=== PATIENT | male | born 1965 | race Caucasian/White ===

== ENCOUNTER 2019-01-26 01:46 | Emergency (ER) | payer BC ==
--- NOTE | 2019-01-26 02:15 | ERPHSYRPT ---
- History of Present Illness Time Seen by Provider: 01/26/19 02:00 Historian: patient Exam Limitations: no limitations Patient Subjective Stated Complaint: patient states he has been having chest pain x2 weeks off nad on started having it tonite got heaviness in his arm thought he better come in Triage Nursing Assessment: pt is alert and orietnedx3, able to ambulate by self , lung sounds clear diminished, pupils perrla2, pulses equal bilateral radius , mild edema noted in lower extremities. skin warm dry and intact Physician History: 53 y/o morbidly obese diabetic white male presents with 2.5 week h/o intermittent sharp, central substernal cp without radiation. occas soa. pt has been taking asa occas. pt cp has persisted. pt has appt with a pcp today. Timing/Duration: week(s) (2.5) Quality: pressure, sharpness, tightness Location: substernal, central Chest Pain Radiation: no radiation Severity of Pain-Max: mild Severity of Pain-Current: mild Modifying Factors: Improves With: aspirin Associated Symptoms: No nausea, No vomiting, No palpitations, No abdominal pain , No shortness of breath, No cough Nitro Today/Relief: no nitro taken today Aspirin Treatment Today: 81 mg x 4 Allergies/Adverse Reactions: Penicillins Allergy (Verified 01/26/19 02:07) Home Medications: Aspirin EC 325 mg [Ecotrin 325 MG] 325 mg PO DAILY 01/26/19 [History] Hx Tetanus, Diphtheria Vaccination/Date Given: Yes Hx Influenza Vaccination/Date Given: Yes Hx Pneumococcal Vaccination/Date Given: No Immunizations Up to Date: Yes - Review of Systems Constitutional: No Symptoms Eyes: No Symptoms Ears, Nose, & Throat: No Symptoms Respiratory: Dyspnea, No Stridor, No Wheezing Cardiac: Chest Pain, No Edema, No Palpitations, No Syncope Abdominal/Gastrointestinal: No Symptoms, No Abdominal Pain, No Nausea, No Vomiting, No Diarrhea Genitourinary Symptoms: No Symptoms Musculoskeletal: No Symptoms Skin: No Symptoms Neurological: No Symptoms Psychological: No Symptoms Endocrine: No Symptoms Hematologic/Lymphatic: No Symptoms Immunological/Allergic: No Symptoms All Other Systems: Reviewed and Negative - Past Medical History Neurological History: No Pertinent History ENT History: No Pertinent History Cardiac History: No Pertinent History Respiratory History: No Pertinent History Endocrine Medical History: Diabetes Type II Musculoskeletal History: No Pertinent History GI Medical History: No Pertinent History History: No Pertinent History Psycho-Social History: No Pertinent History Male Reproductive Disorders: No Pertinent History - Past Surgical History Neuro Surgical History: No Pertinent History Cardiac: No Pertinent History Respiratory: No Pertinent History Gastrointestinal: No Pertinent History Genitourinary: No Pertinent History Musculoskeletal: No Pertinent History Male Surgical History: No Pertinent History - Social History Smoking Status: Never smoker Patient Lives Alone: Yes - Nursing Vital Signs Nursing Vital Signs: Initial Vital Signs Temperature 98.6 F 01/26/19 01:46 Pulse Rate 96 H 01/26/19 01:46 Respiratory Rate 22 01/26/19 01:46 Blood Pressure 141/80 01/26/19 01:46 O2 Sat by Pulse Oximetry 97 01/26/19 01:46 Pain Scale Pain Intensity 0 - Physical Exam General Appearance: no apparent distress, alert, anxiety Eye Exam: PERRL/EOMI Ears, Nose, Throat Exam: normal ENT inspection, moist mucous membranes Neck Exam: normal inspection, non-tender, supple, full range of motion Respiratory Exam: normal breath sounds, chest tenderness, lungs clear, airway intact, No respiratory distress Cardiovascular Exam: regular rate/rhythm, normal heart sounds, normal peripheral pulses Gastrointestinal/Abdomen Exam: soft, normal bowel sounds, No tenderness, No guarding, No rebound Rectal Exam: not done Back Exam: normal inspection, normal range of motion, No CVA tenderness, No vertebral tenderness Extremity Exam: normal inspection, normal range of motion, pelvis stable Neurologic Exam: alert, oriented x 3, cooperative, cork wirer II-XII nml as tested Skin Exam: normal color, warm, dry Lymphatic Exam: No adenopathy SpO2: 97 O2 Delivery: Room Air - Course Nursing assessment & vital signs reviewed: Yes EKG Interpreted by Me: RATE (100), Sinus Rhythm, NORMAL AXIS, NORMAL INTERVALS, NORMAL QRS, Non-specific ST Changes, Other (no comparison ekg) Ordered Tests: Active Orders 24 hr Category Date Time Status [employer] STAT Care 01/26/19 02:12 Active EKG-ER Only STAT Care 01/26/19 02:11 Active IV Insertion STAT Care 01/26/19 02:11 Active CHEST 1 VIEW (PORTABLE) Stat Exams 01/26/19 02:12 Taken CHEST WITH CONTRAST [CT] Stat Exams 01/26/19 03:11 Taken CBC W DIFF Stat Lab 01/26/19 02:54 Completed CMP Stat Lab 01/26/19 02:54 Completed D-DIMER QUANTITATION Stat Lab 01/26/19 02:54 Completed NT PRO BNP Stat Lab 01/26/19 02:54 Completed TROPONIN Q3H Lab 01/26/19 02:54 Completed TROPONIN Q3H Lab 01/26/19 05:28 Received TROPONIN Q3H Lab 01/26/19 08:15 Ordered TROPONIN Q3H Lab 01/26/19 11:15 Ordered TROPONIN Q3H Lab 01/26/19 14:15 Ordered Lab/Rad Data: Laboratory Result Diagrams 01/26/19 02:54 01/26/19 02:54 Laboratory Results 01/26/19 01/26/19 01/26/19 Range/Units 02:54 02:54 02:54 WBC (4.0-10.5) K/mm3 RBC (4.1-5.6) M/mm3 Hgb (12.5-18.0) gm/dl Hct (42-50) % MCV (78-100) fl MCH (26-32) pg MCHC (32-36) g/dl RDW (11.5-14.0) % Plt Count (150-450) K/mm3 MPV (6-9.5) fl Gran % (36.0-66.0) % Eos # (Auto) (0-0.5) Absolute Lymphs (auto) (1.0-4.6) Absolute Monos (auto) (0.0-1.3) Lymphocytes % (24.0-44.0) % Monocytes % (0.0-12.0) % Eosinophils % (0.00-5.0) % Basophils % (0.0-0.4) % Absolute Granulocytes (1.4-6.9) Basophils # (0-0.4) D-Dimer 835 H* (215-500) ng/mL Sodium 139 (137-145) mmol/L Potassium 3.8 (3.5-5.1) mmol/L Chloride 96 L (98-107) mmol/L Carbon Dioxide 30 (22-30) mmol/L Anion Gap 16.4 H (5-15) MEQ/L BUN 11 (9-20) mg/dL Creatinine 0.54 L (0.66-1.25) mg/dL Estimated GFR > 60.0 ML/MIN Glucose 335 H (74-106) mg/dL Calcium 9.1 (8.4-10.2) mg/dL Total Bilirubin 0.30 (0.2-1.3) mg/dL AST 15 L (17-59) U/L ALT 17 (0-50) U/L Alkaline Phosphatase 115 (38-126) U/L Troponin I < 0.012 (0.000-0.034) ng/mL NT-Pro-B Natriuret Pep 65.1 (0-900) pg/mL Serum Total Protein 6.9 (6.3-8.2) g/dL Albumin 3.7 (3.5-5.0) g/dL 01/26/19 Range/Units 02:54 WBC 8.5 (4.0-10.5) K/mm3 RBC 5.42 (4.1-5.6) M/mm3 Hgb 14.9 (12.5-18.0) gm/dl Hct 43.6 (42-50) % MCV 80.4 (78-100) fl MCH 27.5 (26-32) pg MCHC 34.2 (32-36) g/dl RDW 13.8 (11.5-14.0) % Plt Count 251 (150-450) K/mm3 MPV 10.4 H (6-9.5) fl Gran % 76.6 H (36.0-66.0) % Eos # (Auto) 0.22 (0-0.5) Absolute Lymphs (auto) 1.22 (1.0-4.6) Absolute Monos (auto) 0.53 (0.0-1.3) Lymphocytes % 14.4 L (24.0-44.0) % Monocytes % 6.2 (0.0-12.0) % Eosinophils % 2.6 (0.00-5.0) % Basophils % 0.2 (0.0-0.4) % Absolute Granulocytes 6.51 (1.4-6.9) Basophils # 0.02 (0-0.4) D-Dimer (215-500) ng/mL Sodium (137-145) mmol/L Potassium (3.5-5.1) mmol/L Chloride (98-107) mmol/L Carbon Dioxide (22-30) mmol/L Anion Gap (5-15) MEQ/L BUN (9-20) mg/dL Creatinine (0.66-1.25) mg/dL Estimated GFR ML/MIN Glucose (74-106) mg/dL Calcium (8.4-10.2) mg/dL Total Bilirubin (0.2-1.3) mg/dL AST (17-59) U/L ALT (0-50) U/L Alkaline Phosphatase (38-126) U/L Troponin I (0.000-0.034) ng/mL NT-Pro-B Natriuret Pep (0-900) pg/mL Serum Total Protein (6.3-8.2) g/dL Albumin (3.5-5.0) g/dL - Progress Progress: improved, re-examined Air Movement: good Progress Note: 01/26/19 05:46 cxr-no acute process. cta chest-no pulm emboli. no acute process. Counseled pt/family regarding: lab results, diagnosis, need for follow-up, rad results - Departure Departure Disposition: Home Clinical Impression: Chest pain Condition: Stable Critical Care Time: No Referrals: DOCTOR,NO FAMILY [Primary Care Provider] - Additional Instructions: keep your appointment with your primary doctor as scheduled.
[2019-01-26 02:53] LABS: BASOPHIL % 0.2 % (0.0-0.4); Basophil (Absolute #) 0.02 (0-0.4); Eosinophil % 2.6 % (0.00-5.0); Eosinophil (Absolute #) 0.22 (0-0.5); Granulocyte Absolute (ANC) 6.51 (1.4-6.9); Granulocytes % 76.6 % (36.0-66.0); Hematocrit 43.6 % (42-50); Hemoglobin 14.9 gm/dl (12.5-18.0); Lymphocyte (Absolute #) 1.22 (1.0-4.6); Lymphocytes % 14.4 % (24.0-44.0); Mean Cell Volume 80.4 fl (78-100); Mean Corpuscular Hemoglobin 27.5 pg (26-32); Mean Corpuscular Hgb Concent. 34.2 g/dl (32-36); Mean Platelet Volume 10.4 fl (6-9.5); Monocyte (Absolute #) 0.53 (0.0-1.3); Monocytes % 6.2 % (0.0-12.0); Platelet Count 251 K/mm3 (150-450); Red Blood Count 5.42 M/mm3 (4.1-5.6); Red Cell Distribution Width 13.8 % (11.5-14.0); White Blood Count 8.5 K/mm3 (4.0-10.5)
[2019-01-26 03:20] LABS: ALBUMIN 3.7 g/dL (3.5-5.0); ALKALINE PHOSPHATASE 115 U/L (38-126); ANION GAP 16.4 MEQ/L (5-15); BLOOD UREA NITROGEN 11 mg/dL (9-20); CHLORIDE 96 mmol/L (98-107); Calcium 9.1 mg/dL (8.4-10.2); Carbon Dioxide 30 mmol/L (22-30); Creatinine 1 0.54 mg/dL (0.66-1.25); Glucose 335 mg/dL (74-106); NT PRO BNP 65.1 pg/mL (0-900); Potassium 3.8 mmol/L (3.5-5.1); SGOT/AST 15 U/L (17-59); SGPT/ALT 17 U/L (0-50); SODIUM 139 mmol/L (137-145); Total Protein 6.9 g/dL (6.3-8.2)
[2019-01-26 05:52] VITALS: BP 142/83; PULSE 84; O2SAT 95
--- NOTE | 2019-01-26 08:54 | XRAY ---
Indication: Chest pain, lower extremity edema, and left arm heaviness. Elevated d-dimer. Multiple contiguous axial images obtained through the chest using 80 cc Isovue 370 contrast and PE protocol. Comparison: None There is good opacification of the pulmonary arteries to include the lobar and segmental branches. No filling defect or pulmonary embolus. Heart is not enlarged. Prominent epicardiac fat. Aorta is normal in course and caliber. A few tiny mediastinal and right hilar calcified nodes. No pathologic mediastinal/hilar lymphadenopathy. Lungs are inflated and clear. Bony thorax intact with flowing osteophytes throughout the spine. Limited upper abdomen demonstrates diffuse fatty liver. Impression: 1. Negative pulmonary embolus. 2. Fatty liver and evidence for old granulomatous disease. 3. Remaining CT chest with contrast exam is negative. Comment: Preliminary interpretation was made by [facility]. No critical discrepancy. CT DI 23.68
--- NOTE | 2019-01-26 09:10 | XRAY ---
Indication: Chest pain. Comparison: None Portable chest is clear. Heart is upper limits normal for AP portable technique. Bony thorax intact. Impression: Nonacute chest.
== END 2019-01-26 06:00 | disposition home or self-care (01) ==
LOC: ED 01:46
DX: R07.89 Other chest pain (principal); E11.65 Type 2 diabetes mellitus with hyperglycemia
CPT/HCPCS: 36000; 36415; 71045; 71260; 80053; 83880; 84484; 85025; 85379; 93005; 93041; 99284

== ENCOUNTER 2022-05-29 22:02 | Inpatient (IN) | payer BC, OTHER ==
[2022-05-29] MEDS ORDERED: Zofran 4 MG/2 ML VIAL IV ONE (22:18)
[2022-05-29] MEDS ORDERED: Zofran 4 MG/2 ML VIAL ONE (22:29)
[2022-05-29 22:41] LABS: Absolute Neutrophil Ct (ANC) 14.07 x10^3/uL (1.4-6.9); Basophil (Absolute #) 0.04 x10^3/uL (0-0.4); Eosinophil % 0.1 % (0.00-5.0); Eosinophil (Absolute #) 0.01 x10^3/uL (0-0.5); Hematocrit 44.1 % (42-50); Hemoglobin 14.3 g/dL (12.5-18.0); Lymphocyte (Absolute #) 0.44 x10^3/uL (1.0-4.6); Lymphocytes % 2.8 % (24.0-44.0); Mean Cell Volume 81.7 fL (78-100); Mean Corpuscular Hemoglobin 26.5 pg (26-32); Mean Corpuscular Hgb Concent. 32.4 g/dL (32-36); Mean Platelet Volume 9.9 fL (7.5-11.0); Monocyte (Absolute #) 1.04 x10^3/uL (0.0-1.3); Monocytes % 6.6 % (0.0-12.0); Neutrophil % 88.8 % (36.0-66.0); Platelet Count 361 x10^3/uL (150-450); Red Cell Distribution Width 12.6 % (11.5-14.0); White Blood Count 15.8 x10^3/uL (4.0-10.5)
[2022-05-29 22:55] LABS: ALBUMIN 3.3 g/dL (3.5-5.0); ALKALINE PHOSPHATASE 152 U/L (38-126); ANION GAP 23.6 MEQ/L (5-15); BLOOD UREA NITROGEN 13 mg/dL (9-20); CHLORIDE 87 mmol/L (98-107); Calcium 8.2 mg/dL (8.4-10.2); Carbon Dioxide 22 mmol/L (22-30); Creatinine 1 0.66 mg/dL (0.66-1.25); EST GLOMERULAR FILTRATION RATE > 60.0 ML/MIN; Glucose 392 mg/dL (74-106); Potassium 3.3 mmol/L (3.5-5.1); SGOT/AST 17 U/L (17-59); SGPT/ALT 13 U/L (0-50); SODIUM 130 mmol/L (137-145); Total Protein 6.9 g/dL (6.3-8.2)
[2022-05-29 23:12] LABS: Appearance CLEAR (CLEAR); Bilirubin SMALL (NEGATIVE); Dipstick done @ ? MAIN LAB; Glucose 500 mg/dL (NEGATIVE); Ketones >=160 (NEGATIVE); Nitrite NEGATIVE (NEGATIVE); Protein,Urine Dip NEGATIVE (Negative); RBC MODERATE Ery/ul (0-5); Specific Gravity 1.025 (1.005-1.025); Urobilinogen 0.2 mg/dL (0-1)
[2022-05-29 23:13] LABS: Epithelial Cells RARE /HPF (FEW)
[2022-05-29 23:15] LABS: Urine Cultured Indicated? YES
[2022-05-29 23:36] LABS: MAGNESIUM 1.9 mg/dL (1.6-2.3)
[2022-05-29] MEDS ORDERED: Sodium Chloride 0.9% 1000 ML 1,000 ML IV STA (23:37)
[2022-05-29] MEDS ORDERED: Sodium Chloride 0.9% 1000 ML 1,000 ML ONE (23:44)
[2022-05-29] MEDS ORDERED: LEVOFLOXACIN 750MG/150ML D5W 750 MG/150 ML BAG IV STA (23:46)
--- NOTE | 2022-05-29 23:52 | ERPHSYRPT ---
- History of Present Illness Time Seen by Provider: 05/29/22 22:08 Historian: patient, EMS Exam Limitations: no limitations Patient Subjective Stated Complaint: PT STATES HE FEELS GENERALLY ILL, STATES HE HAS BEEN SICK WITH DIARRHEA AND VOMITING, FEELS TIRED AND WEAK, STATES HE HAS SORES ALL OVER BODY FROM SPIDER BITES, STATES HE HAS THEM TREATED IN [place], STATES HE HAS BEEN CARING FOE HIS WOUNDS FOR SEVERAL YEARS. Triage Nursing Assessment: PT IS ALERT AND ORIENTED. STATES THAT HE IS GENERALLY NOT FEELING WELL, HAS SEVERAL WOUNDS TO ENTIRE BODY ON LEGS, TORSO AND BACK. STATES THAT HE HAS HAD A SLIGHT FEVER TODAY BUT NO DIARHEA TODAY, BUT DID HAVE YESTERDAY. VITALS ARE WNL. PT UNABLE TO SIT BACK, STATES THE WEIGHT OF HIS STOMACH FEELS LIKE IT IS TOO HEAVY AND HE FEELS THOUGH HE CANNOT BREATH. Physician History: 57 years old male with history of diabetes mellitus poorly controlled, hypertension, hyperlipidemia, chronic lower extremity swelling needing Unna boot wrap regularly presented in the ER via EMS with generalized weakness fatigue and tiredness and not feeling well. Patient report he is having abdominal pain off and on with loose stool and nausea. Reports his pain in the abdomen is better currently. No chest pain palpitations or shortness of breath. Has bilateral lower extremity swelling which is not any worse than usual. Patient has multiple skin insect bites and also has irritation at the nape of neck which according to him is from the brace he puts on because of his scoliosis. Timing/Duration: day(s), gradual onset, worse Quality: cramping Abdominal Pain Onset Location: generalized abdomen Pain Radiation: no radiation Severity of Pain-Max: moderate Severity of Pain-Current: none Associated Symptoms: diarrhea, nausea Allergies/Adverse Reactions: Penicillins Allergy (Verified 01/26/19 02:07) Sulfa (Sulfonamide Antibiotics) Allergy (Verified 05/29/22 22:21) Home Medications: No Reportable Medications [No Reported Medications] 05/30/22 [History] Hx Tetanus, Diphtheria Vaccination/Date Given: Yes Hx Influenza Vaccination/Date Given: Yes Hx Pneumococcal Vaccination/Date Given: No Travel Risk - International Travel Have you traveled outside of the country in past 3 weeks: No - Coronavirus Screening Are you exhibiting any of the following symptoms?: Yes Symptoms: Cough: New Onset, Vomiting/Diarrhea Close contact with a COVID-19 positive Pt in past 14-21 Days: No - Vaccine Status Have you recieved a Covid-19 vaccination: Yes Neurophysiologist: Moderna - Vaccination Dates Date of 2cond Vaccination (if applicable): UNKNOWN - Review of Systems Constitutional: Chills, Fatigue, Weakness Eyes: No Symptoms Ears, Nose, & Throat: No Symptoms Respiratory: No Symptoms Cardiac: No Symptoms Abdominal/Gastrointestinal: Abdominal Pain, Nausea, Diarrhea Genitourinary Symptoms: No Symptoms Musculoskeletal: Arthralgias, Back Pain, Myalgias Skin: Skin Lesions Neurological: No Symptoms Endocrine: No Symptoms Hematologic/Lymphatic: No Symptoms - Past Medical History Pertinent Past Medical History: Yes Neurological History: No Pertinent History ENT History: No Pertinent History Cardiac History: No Pertinent History Respiratory History: No Pertinent History Endocrine Medical History: Diabetes Type II Musculoskeletal History: No Pertinent History GI Medical History: No Pertinent History History: No Pertinent History Psycho-Social History: No Pertinent History Male Reproductive Disorders: No Pertinent History - Past Surgical History Past Surgical History: No Neuro Surgical History: No Pertinent History Cardiac: No Pertinent History Respiratory: No Pertinent History Gastrointestinal: No Pertinent History Genitourinary: No Pertinent History Musculoskeletal: No Pertinent History Male Surgical History: No Pertinent History - Social History Smoking Status: Never smoker Drug Use: none Patient Lives Alone: Yes - Nursing Vital Signs Nursing Vital Signs: Initial Vital Signs Temperature 98.3 F 05/29/22 22:02 Pulse Rate 100 H 05/29/22 22:02 Respiratory Rate 18 05/29/22 22:02 Blood Pressure 132/79 05/29/22 22:02 O2 Sat by Pulse Oximetry 95 05/29/22 22:02 Pain Scale Pain Intensity 0 - Physical Exam General Appearance: no apparent distress, alert Eye Exam: PERRL/EOMI, eyes nml inspection Ears, Nose, Throat Exam: normal ENT inspection, pharynx normal Neck Exam: normal inspection, full range of motion, other (Erythema with thickening of skin at the back of neck with no tenderness. Skin abrasion at upper back) Respiratory Exam: normal breath sounds, lungs clear Cardiovascular Exam: regular rate/rhythm, normal heart sounds, edema Gastrointestinal/Abdomen Exam: soft, normal bowel sounds, No tenderness Back Exam: normal inspection, normal range of motion Extremity Exam: normal inspection, normal range of motion Neurologic Exam: alert, oriented x 3, cooperative Skin Exam: normal color SpO2 Interpretation: normal SpO2: 98 O2 Delivery: Room Air Ordered Tests: Medication Summary Generic Name Dose Route Start Last Admin Trade Name Freq PRN Reason Stop Dose Admin Acetaminophen 650 mg 05/30/22 02:14 06/03/22 19:35 Acetaminophen 325 Mg Tablet PO 06/29/22 02:13 650 mg Q4H PRN PRN Administration PAIN AND/OR FEVER Bumetanide 1 mg 06/04/22 13:00 06/04/22 13:24 Bumetanide 1 Mg Tablet PO 07/04/22 12:59 1 mg DAILY GERRI Administration Diphenoxylate HCl/Atropine 2 tablet 05/30/22 20:29 06/03/22 19:36 Diphenoxylate Hcl/Atropine 1 Tablet PO 06/29/22 20:28 2 tablet QID PRN PRN Administration DIARRHEA Potassium Chloride/Sodium Chloride 1,000 mls @ 100 mls/hr 05/30/22 02:14 06/03/22 22:54 Sodium Chloride 0.9% W/ 20 Meq Kcl/Liter IV 06/29/22 02:13 100 mls/hr .Q10H GERRI Administration Meropenem 1 gm/ Sodium 100 mls @ 200 mls/hr 05/30/22 14:00 06/04/22 14:28 Chloride IV 06/05/22 13:59 200 mls/hr Q8HT GERRI Administration Insulin Glargine 70 unit 06/01/22 22:00 06/03/22 21:28 Insulin Glargine 1 Unit SQ 07/01/22 21:59 70 unit HS GERRI Administration Insulin Human Lispro 0 unit 05/30/22 12:11 06/04/22 12:55 Insulin Lispro 1 Unit SQ 06/29/22 12:10 4 unit UD PRN Administration HYPERGLYCEMIA Metformin HCl 1,000 mg 05/30/22 18:00 06/03/22 17:19 Metformin Hcl Er 500 Mg Tab PO 06/29/22 17:59 1,000 mg EVENING MEAL GERRI Administration Ondansetron HCl 4 mg 05/30/22 02:14 05/30/22 21:34 Ondansetron Hcl 4 Mg/2 Ml Vial IV 06/29/22 02:13 4 mg Q6H PRN PRN Administration NAUSEA/VOMITING Pantoprazole Sodium 40 mg 06/03/22 10:00 06/04/22 11:23 Protonix (Pantoprazole) 40 Mg Tablet PO 07/03/22 09:59 Not Given DAILY GERRI Discontinued Medications Generic Name Dose Route Start Last Admin Trade Name Oleg PRN Reason Stop Dose Admin Albuterol/Ipratropium 3 ml 05/30/22 02:14 Ipratropium/Albuterol Sulfate 3 Ml Ampul.Neb IH 06/29/22 02:13 Q6HRT GERRI Bumetanide 1 mg 06/05/22 10:00 Bumetanide 1 Mg Tablet PO 07/05/22 09:59 DAILY GERRI Bupivacaine HCl Confirm 06/04/22 06:53 Bupivacaine Hcl 2.5 Mg/Ml 10 Ml Administered 06/04/22 06:54 Dose 10 ml .ROUTE .STK-MED ONE Dexamethasone Sodium Phosphate Confirm 06/04/22 09:07 Dexamethasone Sod Phosphate 4 Mg/Ml Ml Administered 06/04/22 09:08 Dose 4 mg .ROUTE .STK-MED ONE Etomidate Confirm 06/04/22 09:21 Etomidate 20 Mg/10 Ml Amp Administered 06/04/22 09:22 Dose 20 mg IV .STK-MED ONE Famotidine 40 mg 06/04/22 08:30 06/04/22 08:46 Famotidine 20 Mg/1 Vial IV 06/04/22 08:31 40 mg 1HRPRIOR GERRI Administration Fentanyl Citrate Confirm 06/04/22 09:07 Fentanyl Citrate 100 Mcg/2 Ml* Vial Administered 06/04/22 09:08 Dose 100 mcg .ROUTE .STK-MED ONE Sodium Chloride 1,000 mls @ 999 mls/hr 05/29/22 23:37 05/29/22 23:44 Sodium Chloride 0.9% 1000 Ml IV 05/30/22 00:37 999 mls/hr .Q1H1M STA Administration Sodium Chloride Confirm 05/29/22 23:44 Sodium Chloride 0.9% 1000 Ml Administered 05/29/22 23:45 Dose 1,000 mls @ ud .ROUTE .STK-MED ONE Levofloxacin/Dextrose 750 mg in 150 mls @ 100 mls/hr 05/29/22 23:46 05/29/22 23:56 Levofloxacin 750mg/150ml D5w IV 05/30/22 01:15 100 ml/hr STAT STA 100 mls/hr Administration Levofloxacin/Dextrose Confirm 05/29/22 23:54 Levofloxacin 750mg/150ml D5w Administered 05/29/22 23:55 Dose 750 mg in 150 mls @ ud IV .STK-MED ONE Levofloxacin/Dextrose 500 mg in 100 mls @ 100 mls/hr 05/30/22 10:00 05/30/22 09:20 Levofloxacin 500mg/100ml D5w IV 06/29/22 09:59 100 mls/hr Q24H10 GERRI Administration Lactated Ringer's 1,000 mls @ 50 mls/hr 06/04/22 08:30 06/04/22 08:46 Lactated Ringers IV 06/05/22 04:29 50 mls/hr .Q20H GERRI Administration Clindamycin HCl/Dextrose 600 mg in 50 mls @ 100 mls/hr 06/04/22 08:30 06/04/22 08:46 Clindamycin-D5w 600 Mg/50 Ml IV 06/04/22 08:59 100 mls/hr ONCALLTOOR GERRI Administration Insulin Glargine 50 unit 05/30/22 12:12 05/30/22 13:27 Insulin Glargine 1 Unit SQ 05/30/22 12:13 50 unit ONCE ONE Administration Insulin Glargine 50 unit 05/30/22 22:00 05/31/22 22:10 Insulin Glargine 1 Unit SQ 06/29/22 21:59 50 unit HS GERRI Administration Insulin Human Lispro 0 unit 05/30/22 02:14 05/30/22 09:23 Insulin Lispro 1 Unit SQ 06/29/22 02:13 11 unit UD PRN Administration HYPERGLYCEMIA Lidocaine HCl Confirm 06/04/22 06:53 Lidocaine Hcl 1% 20 Ml Mdv 20 Ml Ml Administered 06/04/22 06:54 Dose 20 ml .ROUTE .STK-MED ONE Lidocaine HCl Confirm 06/04/22 09:03 Lidocaine - Mpf 2% 5 Ml Vial Administered 06/04/22 09:04 Dose 5 ml .ROUTE .STK-MED ONE Metoclopramide HCl 10 mg 06/04/22 08:30 06/04/22 08:45 Metoclopramide Hcl 10 Mg/2 Ml Vial IV 07/04/22 08:29 10 mg 1HRPRIOR GERRI Administration Morphine Sulfate 2 mg 05/30/22 02:14 Morphine Sulfate 2 Mg/Ml Inj IV 06/04/22 02:13 Q4H PRN PRN PAIN Non-Formulary Medication 1 each 05/30/22 12:08 Pharmacy Dosing Request 05/30/22 12:09 STAT ONE Ondansetron HCl 4 mg 05/29/22 22:18 05/29/22 22:30 Ondansetron Hcl 4 Mg/2 Ml Vial IV 05/29/22 22:19 4 mg STAT ONE Administration Ondansetron HCl Confirm 05/29/22 22:29 Ondansetron Hcl 4 Mg/2 Ml Vial Administered 05/29/22 22:30 Dose 4 mg .ROUTE .STK-MED ONE Ondansetron HCl Confirm 06/04/22 09:03 Ondansetron Hcl 4 Mg/2 Ml Vial Administered 06/04/22 09:04 Dose 4 mg .ROUTE .STK-MED ONE Pantoprazole Sodium 40 mg 05/30/22 10:00 06/02/22 10:00 Pantoprazole 40 Mg Vial IV 06/29/22 09:59 40 mg Q24H10 GERRI Administration Potassium Chloride 40 meq 06/02/22 06:43 06/02/22 06:51 Potassium Chloride Tab 10 Meq Tab PO 06/02/22 06:44 40 meq STAT ONE Administration Potassium Chloride Confirm 06/02/22 06:49 Potassium Chloride Tab 10 Meq Tab Administered 06/02/22 06:50 Dose 40 meq PO .STK-MED ONE Lab/Rad Data: Laboratory Result Diagrams 05/30/22 05:59 05/30/22 05:59 Laboratory Results 05/30/22 05/30/22 05/30/22 Range/Units 11:26 10:33 07:50 WBC (4.0-10.5) x10^3/uL RBC (4.1-5.6) x10^6/uL Hgb (12.5-18.0) g/dL Hct (42-50) % MCV (78-100) fL MCH (26-32) pg MCHC (32-36) g/dL RDW (11.5-14.0) % Plt Count (150-450) x10^3/uL MPV (7.5-11.0) fL Gran % (36.0-66.0) % Immature Gran % (Auto) (0.00-0.4) % Nucleat RBC Rel Count (0.00-0.1) % Eos # (Auto) (0-0.5) x10^3/uL Immature Gran # (Auto) (0.00-0.03) x10^3u/L Absolute Lymphs (auto) (1.0-4.6) x10^3/uL Absolute Monos (auto) (0.0-1.3) x10^3/uL Absolute Nucleated RBC (0.00-0.01) x10^3u/L Lymphocytes % (24.0-44.0) % Monocytes % (0.0-12.0) % Eosinophils % (0.00-5.0) % Basophils % (0.0-0.4) % Absolute Granulocytes (1.4-6.9) x10^3/uL Basophils # (0-0.4) x10^3/uL pO2/FiO2 Ratio % VBG pH (7.32-7.42) VBG pCO2 at Pat Temp (42-55) mm/Hg VBG pO2 at Pat Temp (25-40) mm/Hg VBG HCO3 (22-28) meq/L VBG O2 Sat ([place]) (95-100) VBG Base Excess (-2.0-2.0) VBG Hemoglobin VBG Carboxyhemoglobin (0.0-6.9) % T HGB POC Potassium (3.5-5.1) Sodium (137-145) mmol/L Potassium (3.5-5.1) mmol/L Chloride (98-107) mmol/L Carbon Dioxide (22-30) mmol/L Anion Gap (5-15) MEQ/L BUN (9-20) mg/dL Creatinine (0.66-1.25) mg/dL Estimated GFR ML/MIN Glucose (74-106) mg/dL POC Glucometer 370 H 375 H (74 to 106) mg/dL Hemoglobin A1c > 14.00 H (4.5-6.0) % Lactic Acid (0.4-2.0) Calcium (8.4-10.2) mg/dL Magnesium (1.6-2.3) mg/dL Total Bilirubin (0.2-1.3) mg/dL AST (17-59) U/L ALT (0-50) U/L Alkaline Phosphatase (38-126) U/L NT-Pro-B Natriuret Pep (0-900) pg/mL Serum Total Protein (6.3-8.2) g/dL Albumin (3.5-5.0) g/dL Lipase (23-300) U/L Procalcitonin (0.030-0.080) ng/mL Urinalys Dipstick Clnc Urine Color (YELLOW) Urine Appearance (CLEAR) Urine pH (5-6) Ur Specific [place] (1.005-1.025) POC Urine Protein Conf (Negative) Urine Ketones (NEGATIVE) Urine Nitrite (NEGATIVE) Urine Bilirubin (NEGATIVE) Urine Urobilinogen (0-1) mg/dL Urine Leukocytes (NEGATIVE) Urine WBC (Auto) (0-5) /HPF Urine RBC (Auto) (0-2) /HPF U Hyaline Cast (Auto) (0-2) /LPF U Epithel Cells (Auto) (FEW) /HPF Urine Bacteria (Auto) (NEGATIVE) /HPF Urine RBC (0-5) Gino/ul Granular Casts (Auto) (NEGATIVE) /LPF Ur Culture Indicated? Urine Glucose (NEGATIVE) mg/dL Influenza Type A Ag (NEGATIVE) Influenza Type B Ag (NEGATIVE) RSV (PCR) (Negative) SARS-CoV-2 (PCR) (NEGATIVE) 05/30/22 05/30/22 05/30/22 Range/Units 05:59 05:59 01:10 WBC 16.5 H (4.0-10.5) x10^3/uL RBC 5.07 (4.1-5.6) x10^6/uL Hgb 12.9 (12.5-18.0) g/dL Hct 41.2 L (42-50) % MCV 81.3 (78-100) fL MCH 25.4 L (26-32) pg MCHC 31.3 L (32-36) g/dL RDW 12.8 (11.5-14.0) % Plt Count 356 (150-450) x10^3/uL MPV 10.5 (7.5-11.0) fL Gran % 88.8 H (36.0-66.0) % Immature Gran % (Auto) 1.2 H (0.00-0.4) % Nucleat RBC Rel Count 0.0 (0.00-0.1) % Eos # (Auto) 0.01 (0-0.5) x10^3/uL Immature Gran # (Auto) 0.19 H (0.00-0.03) x10^3u/L Absolute Lymphs (auto) 0.59 L (1.0-4.6) x10^3/uL Absolute Monos (auto) 1.00 (0.0-1.3) x10^3/uL Absolute Nucleated RBC 0.00 (0.00-0.01) x10^3u/L Lymphocytes % 3.6 L (24.0-44.0) % Monocytes % 6.1 (0.0-12.0) % Eosinophils % 0.1 (0.00-5.0) % Basophils % 0.2 (0.0-0.4) % Absolute Granulocytes 14.68 H (1.4-6.9) x10^3/uL Basophils # 0.03 (0-0.4) x10^3/uL pO2/FiO2 Ratio % VBG pH (7.32-7.42) VBG pCO2 at Pat Temp (42-55) mm/Hg VBG pO2 at Pat Temp (25-40) mm/Hg VBG HCO3 (22-28) meq/L VBG O2 Sat ([place]) (95-100) VBG Base Excess (-2.0-2.0) VBG Hemoglobin VBG Carboxyhemoglobin (0.0-6.9) % T HGB POC Potassium (3.5-5.1) Sodium 130 L (137-145) mmol/L Potassium 3.4 L (3.5-5.1) mmol/L Chloride 90 L (98-107) mmol/L Carbon Dioxide 21 L (22-30) mmol/L Anion Gap 22.8 H (5-15) MEQ/L BUN 12 (9-20) mg/dL Creatinine 0.65 L (0.66-1.25) mg/dL Estimated GFR > 60.0 ML/MIN Glucose 395 H (74-106) mg/dL POC Glucometer (74 to 106) mg/dL Hemoglobin A1c (4.5-6.0) % Lactic Acid (0.4-2.0) Calcium 7.9 L (8.4-10.2) mg/dL Magnesium (1.6-2.3) mg/dL Total Bilirubin 0.40 (0.2-1.3) mg/dL AST 15 L (17-59) U/L ALT 10 (0-50) U/L Alkaline Phosphatase 145 H (38-126) U/L NT-Pro-B Natriuret Pep (0-900) pg/mL Serum Total Protein 6.3 (6.3-8.2) g/dL Albumin 3.0 L (3.5-5.0) g/dL Lipase (23-300) U/L Procalcitonin (0.030-0.080) ng/mL Urinalys Dipstick Clnc Urine Color (YELLOW) Urine Appearance (CLEAR) Urine pH (5-6) Ur Specific [place] (1.005-1.025) POC Urine Protein Conf (Negative) Urine Ketones (NEGATIVE) Urine Nitrite (NEGATIVE) Urine Bilirubin (NEGATIVE) Urine Urobilinogen (0-1) mg/dL Urine Leukocytes (NEGATIVE) Urine WBC (Auto) (0-5) /HPF Urine RBC (Auto) (0-2) /HPF U Hyaline Cast (Auto) (0-2) /LPF U Epithel Cells (Auto) (FEW) /HPF Urine Bacteria (Auto) (NEGATIVE) /HPF Urine RBC (0-5) Gino/ul Granular Casts (Auto) (NEGATIVE) /LPF Ur Culture Indicated? Urine Glucose (NEGATIVE) mg/dL Influenza Type A Ag NEGATIVE (NEGATIVE) Influenza Type B Ag NEGATIVE (NEGATIVE) RSV (PCR) NEGATIVE (Negative) SARS-CoV-2 (PCR) NEGATIVE (NEGATIVE) 05/30/22 05/30/22 05/29/22 Range/Units 00:05 00:02 23:50 WBC (4.0-10.5) x10^3/uL RBC (4.1-5.6) x10^6/uL Hgb (12.5-18.0) g/dL Hct (42-50) % MCV (78-100) fL MCH (26-32) pg MCHC (32-36) g/dL RDW (11.5-14.0) % Plt Count (150-450) x10^3/uL MPV (7.5-11.0) fL Gran % (36.0-66.0) % Immature Gran % (Auto) (0.00-0.4) % Nucleat RBC Rel Count (0.00-0.1) % Eos # (Auto) (0-0.5) x10^3/uL Immature Gran # (Auto) (0.00-0.03) x10^3u/L Absolute Lymphs (auto) (1.0-4.6) x10^3/uL Absolute Monos (auto) (0.0-1.3) x10^3/uL Absolute Nucleated RBC (0.00-0.01) x10^3u/L Lymphocytes % (24.0-44.0) % Monocytes % (0.0-12.0) % Eosinophils % (0.00-5.0) % Basophils % (0.0-0.4) % Absolute Granulocytes (1.4-6.9) x10^3/uL Basophils # (0-0.4) x10^3/uL pO2/FiO2 Ratio 21.0 % VBG pH 7.43 H (7.32-7.42) VBG pCO2 at Pat Temp 30 L (42-55) mm/Hg VBG pO2 at Pat Temp 80 H (25-40) mm/Hg VBG HCO3 19.9 L (22-28) meq/L VBG O2 Sat ([place]) 98.1 (95-100) VBG Base Excess -3.3 L (-2.0-2.0) VBG Hemoglobin 14.3 VBG Carboxyhemoglobin 2.6 (0.0-6.9) % T HGB POC Potassium 3.1 L (3.5-5.1) Sodium (137-145) mmol/L Potassium (3.5-5.1) mmol/L Chloride (98-107) mmol/L Carbon Dioxide (22-30) mmol/L Anion Gap (5-15) MEQ/L BUN (9-20) mg/dL Creatinine (0.66-1.25) mg/dL Estimated GFR ML/MIN Glucose (74-106) mg/dL POC Glucometer 387 H (74 to 106) mg/dL Hemoglobin A1c (4.5-6.0) % Lactic Acid 1.7 (0.4-2.0) Calcium (8.4-10.2) mg/dL Magnesium (1.6-2.3) mg/dL Total Bilirubin (0.2-1.3) mg/dL AST (17-59) U/L ALT (0-50) U/L Alkaline Phosphatase (38-126) U/L NT-Pro-B Natriuret Pep (0-900) pg/mL Serum Total Protein (6.3-8.2) g/dL Albumin (3.5-5.0) g/dL Lipase (23-300) U/L Procalcitonin (0.030-0.080) ng/mL Urinalys Dipstick Clnc Urine Color (YELLOW) Urine Appearance (CLEAR) Urine pH (5-6) Ur Specific [place] (1.005-1.025) POC Urine Protein Conf (Negative) Urine Ketones (NEGATIVE) Urine Nitrite (NEGATIVE) Urine Bilirubin (NEGATIVE) Urine Urobilinogen (0-1) mg/dL Urine Leukocytes (NEGATIVE) Urine WBC (Auto) (0-5) /HPF Urine RBC (Auto) (0-2) /HPF U Hyaline Cast (Auto) (0-2) /LPF U Epithel Cells (Auto) (FEW) /HPF Urine Bacteria (Auto) (NEGATIVE) /HPF Urine RBC (0-5) Gino/ul Granular Casts (Auto) (NEGATIVE) /LPF Ur Culture Indicated? Urine Glucose (NEGATIVE) mg/dL Influenza Type A Ag (NEGATIVE) Influenza Type B Ag (NEGATIVE) RSV (PCR) (Negative) SARS-CoV-2 (PCR) (NEGATIVE) 05/29/22 05/29/22 05/29/22 Range/Units 23:18 23:13 23:02 WBC (4.0-10.5) x10^3/uL RBC (4.1-5.6) x10^6/uL Hgb (12.5-18.0) g/dL Hct (42-50) % MCV (78-100) fL MCH (26-32) pg MCHC (32-36) g/dL RDW (11.5-14.0) % Plt Count (150-450) x10^3/uL MPV (7.5-11.0) fL Gran % (36.0-66.0) % Immature Gran % (Auto) (0.00-0.4) % Nucleat RBC Rel Count (0.00-0.1) % Eos # (Auto) (0-0.5) x10^3/uL Immature Gran # (Auto) (0.00-0.03) x10^3u/L Absolute Lymphs (auto) (1.0-4.6) x10^3/uL Absolute Monos (auto) (0.0-1.3) x10^3/uL Absolute Nucleated RBC (0.00-0.01) x10^3u/L Lymphocytes % (24.0-44.0) % Monocytes % (0.0-12.0) % Eosinophils % (0.00-5.0) % Basophils % (0.0-0.4) % Absolute Granulocytes (1.4-6.9) x10^3/uL Basophils # (0-0.4) x10^3/uL pO2/FiO2 Ratio % VBG pH (7.32-7.42) VBG pCO2 at Pat Temp (42-55) mm/Hg VBG pO2 at Pat Temp (25-40) mm/Hg VBG HCO3 (22-28) meq/L VBG O2 Sat ([place]) (95-100) VBG Base Excess (-2.0-2.0) VBG Hemoglobin VBG Carboxyhemoglobin (0.0-6.9) % T HGB POC Potassium (3.5-5.1) Sodium (137-145) mmol/L Potassium (3.5-5.1) mmol/L Chloride (98-107) mmol/L Carbon Dioxide (22-30) mmol/L Anion Gap (5-15) MEQ/L BUN (9-20) mg/dL Creatinine (0.66-1.25) mg/dL Estimated GFR ML/MIN Glucose (74-106) mg/dL POC Glucometer (74 to 106) mg/dL Hemoglobin A1c (4.5-6.0) % Lactic Acid (0.4-2.0) Calcium (8.4-10.2) mg/dL Magnesium 1.9 (1.6-2.3) mg/dL Total Bilirubin (0.2-1.3) mg/dL AST (17-59) U/L ALT (0-50) U/L Alkaline Phosphatase (38-126) U/L NT-Pro-B Natriuret Pep 192 (0-900) pg/mL Serum Total Protein (6.3-8.2) g/dL Albumin (3.5-5.0) g/dL Lipase 26 (23-300) U/L Procalcitonin (0.030-0.080) ng/mL Urinalys Dipstick Clnc MAIN LAB Urine Color YELLOW (YELLOW) Urine Appearance CLEAR (CLEAR) Urine pH 5.0 (5-6) Ur Specific [place] 1.025 (1.005-1.025) POC Urine Protein Conf NEGATIVE (Negative) Urine Ketones >=160 (NEGATIVE) Urine Nitrite NEGATIVE (NEGATIVE) Urine Bilirubin SMALL (NEGATIVE) Urine Urobilinogen 0.2 (0-1) mg/dL Urine Leukocytes SMALL (NEGATIVE) Urine WBC (Auto) 16-25 (0-5) /HPF Urine RBC (Auto) 6-10 (0-2) /HPF U Hyaline Cast (Auto) 3-5 (0-2) /LPF U Epithel Cells (Auto) RARE (FEW) /HPF Urine Bacteria (Auto) NONE (NEGATIVE) /HPF Urine RBC MODERATE (0-5) Gino/ul Granular Casts (Auto) 2-5 (NEGATIVE) /LPF Ur Culture Indicated? YES Urine Glucose 500 (NEGATIVE) mg/dL Influenza Type A Ag (NEGATIVE) Influenza Type B Ag (NEGATIVE) RSV (PCR) (Negative) SARS-CoV-2 (PCR) (NEGATIVE) 05/29/22 05/29/22 05/29/22 Range/Units 22:38 22:38 22:38 WBC 15.8 H (4.0-10.5) x10^3/uL RBC 5.40 (4.1-5.6) x10^6/uL Hgb 14.3 (12.5-18.0) g/dL Hct 44.1 (42-50) % MCV 81.7 (78-100) fL MCH 26.5 (26-32) pg MCHC 32.4 (32-36) g/dL RDW 12.6 (11.5-14.0) % Plt Count 361 (150-450) x10^3/uL MPV 9.9 (7.5-11.0) fL Gran % 88.8 H (36.0-66.0) % Immature Gran % (Auto) 1.4 H (0.00-0.4) % Nucleat RBC Rel Count 0.0 (0.00-0.1) % Eos # (Auto) 0.01 (0-0.5) x10^3/uL Immature Gran # (Auto) 0.22 H (0.00-0.03) x10^3u/L Absolute Lymphs (auto) 0.44 L (1.0-4.6) x10^3/uL Absolute Monos (auto) 1.04 (0.0-1.3) x10^3/uL Absolute Nucleated RBC 0.00 (0.00-0.01) x10^3u/L Lymphocytes % 2.8 L (24.0-44.0) % Monocytes % 6.6 (0.0-12.0) % Eosinophils % 0.1 (0.00-5.0) % Basophils % 0.3 (0.0-0.4) % Absolute Granulocytes 14.07 H (1.4-6.9) x10^3/uL Basophils # 0.04 (0-0.4) x10^3/uL pO2/FiO2 Ratio % VBG pH (7.32-7.42) VBG pCO2 at Pat Temp (42-55) mm/Hg VBG pO2 at Pat Temp (25-40) mm/Hg VBG HCO3 (22-28) meq/L VBG O2 Sat ([place]) (95-100) VBG Base Excess (-2.0-2.0) VBG Hemoglobin VBG Carboxyhemoglobin (0.0-6.9) % T HGB POC Potassium (3.5-5.1) Sodium 130 L (137-145) mmol/L Potassium 3.3 L (3.5-5.1) mmol/L Chloride 87 L (98-107) mmol/L Carbon Dioxide 22 (22-30) mmol/L Anion Gap 23.6 H (5-15) MEQ/L BUN 13 (9-20) mg/dL Creatinine 0.66 (0.66-1.25) mg/dL Estimated GFR > 60.0 ML/MIN Glucose 392 H (74-106) mg/dL POC Glucometer (74 to 106) mg/dL Hemoglobin A1c (4.5-6.0) % Lactic Acid (0.4-2.0) Calcium 8.2 L (8.4-10.2) mg/dL Magnesium (1.6-2.3) mg/dL Total Bilirubin 0.50 (0.2-1.3) mg/dL AST 17 (17-59) U/L ALT 13 (0-50) U/L Alkaline Phosphatase 152 H (38-126) U/L NT-Pro-B Natriuret Pep (0-900) pg/mL Serum Total Protein 6.9 (6.3-8.2) g/dL Albumin 3.3 L (3.5-5.0) g/dL Lipase (23-300) U/L Procalcitonin 0.338 H (0.030-0.080) ng/mL Urinalys Dipstick Clnc Urine Color (YELLOW) Urine Appearance (CLEAR) Urine pH (5-6) Ur Specific [place] (1.005-1.025) POC Urine Protein Conf (Negative) Urine Ketones (NEGATIVE) Urine Nitrite (NEGATIVE) Urine Bilirubin (NEGATIVE) Urine Urobilinogen (0-1) mg/dL Urine Leukocytes (NEGATIVE) Urine WBC (Auto) (0-5) /HPF Urine RBC (Auto) (0-2) /HPF U Hyaline Cast (Auto) (0-2) /LPF U Epithel Cells (Auto) (FEW) /HPF Urine Bacteria (Auto) (NEGATIVE) /HPF Urine RBC (0-5) Gino/ul Granular Casts (Auto) (NEGATIVE) /LPF Ur Culture Indicated? Urine Glucose (NEGATIVE) mg/dL Influenza Type A Ag (NEGATIVE) Influenza Type B Ag (NEGATIVE) RSV (PCR) (Negative) SARS-CoV-2 (PCR) (NEGATIVE) 05/29/22 Range/Units 22:30 WBC (4.0-10.5) x10^3/uL RBC (4.1-5.6) x10^6/uL Hgb (12.5-18.0) g/dL Hct (42-50) % MCV (78-100) fL MCH (26-32) pg MCHC (32-36) g/dL RDW (11.5-14.0) % Plt Count (150-450) x10^3/uL MPV (7.5-11.0) fL Gran % (36.0-66.0) % Immature Gran % (Auto) (0.00-0.4) % Nucleat RBC Rel Count (0.00-0.1) % Eos # (Auto) (0-0.5) x10^3/uL Immature Gran # (Auto) (0.00-0.03) x10^3u/L Absolute Lymphs (auto) (1.0-4.6) x10^3/uL Absolute Monos (auto) (0.0-1.3) x10^3/uL Absolute Nucleated RBC (0.00-0.01) x10^3u/L Lymphocytes % (24.0-44.0) % Monocytes % (0.0-12.0) % Eosinophils % (0.00-5.0) % Basophils % (0.0-0.4) % Absolute Granulocytes (1.4-6.9) x10^3/uL Basophils # (0-0.4) x10^3/uL pO2/FiO2 Ratio % VBG pH (7.32-7.42) VBG pCO2 at Pat Temp (42-55) mm/Hg VBG pO2 at Pat Temp (25-40) mm/Hg VBG HCO3 (22-28) meq/L VBG O2 Sat ([place]ulce) (95-100) VBG Base Excess (-2.0-2.0) VBG Hemoglobin VBG Carboxyhemoglobin (0.0-6.9) % T HGB POC Potassium (3.5-5.1) Sodium (137-145) mmol/L Potassium (3.5-5.1) mmol/L Chloride (98-107) mmol/L Carbon Dioxide (22-30) mmol/L Anion Gap (5-15) MEQ/L BUN (9-20) mg/dL Creatinine (0.66-1.25) mg/dL Estimated GFR ML/MIN Glucose (74-106) mg/dL POC Glucometer (74 to 106) mg/dL Hemoglobin A1c (4.5-6.0) % Lactic Acid 2.2 H (0.4-2.0) Calcium (8.4-10.2) mg/dL Magnesium (1.6-2.3) mg/dL Total Bilirubin (0.2-1.3) mg/dL AST (17-59) U/L ALT (0-50) U/L Alkaline Phosphatase (38-126) U/L NT-Pro-B Natriuret Pep (0-900) pg/mL Serum Total Protein (6.3-8.2) g/dL Albumin (3.5-5.0) g/dL Lipase (23-300) U/L Procalcitonin (0.030-0.080) ng/mL Urinalys Dipstick Clnc Urine Color (YELLOW) Urine Appearance (CLEAR) Urine pH (5-6) Ur Specific [place] (1.005-1.025) POC Urine Protein Conf (Negative) Urine Ketones (NEGATIVE) Urine Nitrite (NEGATIVE) Urine Bilirubin (NEGATIVE) Urine Urobilinogen (0-1) mg/dL Urine Leukocytes (NEGATIVE) Urine WBC (Auto) (0-5) /HPF Urine RBC (Auto) (0-2) /HPF U Hyaline Cast (Auto) (0-2) /LPF U Epithel Cells (Auto) (FEW) /HPF Urine Bacteria (Auto) (NEGATIVE) /HPF Urine RBC (0-5) Gino/ul Granular Casts (Auto) (NEGATIVE) /LPF Ur Culture Indicated? Urine Glucose (NEGATIVE) mg/dL Influenza Type A Ag (NEGATIVE) Influenza Type B Ag (NEGATIVE) RSV (PCR) (Negative) SARS-CoV-2 (PCR) (NEGATIVE) - Progress Progress: improved Progress Note: 05/29/22 23:50 Patient is offered pain medication which she refused. Given Zofran, feeling better on reevaluation. Work-up showed white count of 15, lactate of 2.2 and elevated procalcitonin. Patient also has blood glucose in the 390s with a gap of 23 but normal bicarb. Potassium is on the lower side. Given oral and IV potassium and will give him fluids gently and start him on insulin sliding scale. Does have UTI and given a dose of Levaquin. Patient is being admitted Discussed with .: Lindsay Will see patient in: hospital (observation) Counseled pt/family regarding: lab results, diagnosis, rad results - Departure Departure Disposition: Observation Clinical Impression: Hyperglycemia, Acute UTI, Sepsis Condition: Stable Critical Care Time: No
[2022-05-29] MEDS ORDERED: LEVOFLOXACIN 750MG/150ML D5W 750 MG/150 ML BAG IV ONE (23:54)
[2022-05-30 00:08] LABS: VBG BASE EXCESS -3.3 (-2.0-2.0); VBG CARBOXYHEMOGLOBIN 2.6 % T HGB (0.0-6.9); VBG HCO3- 19.9 meq/L (22-28); VBG HEMOGLOBIN 14.3; VBG O2 SATURATION 98.1 (95-100); VBG POTASSIUM 3.1 (3.5-5.1); VBG pH 7.43 (7.32-7.42)
[2022-05-30 01:50] LABS: INFLUENZA A NEGATIVE (NEGATIVE); INFLUENZA B NEGATIVE (NEGATIVE); RESPIRATORY SYNCTIAL VIRUS NEGATIVE (Negative); SARS-CoV-2 Xpert Express NEGATIVE (NEGATIVE)
[2022-05-30] MEDS ORDERED: DUONEB 0.5-3 MG/3 ml Neb IH SCH (02:14)
[2022-05-30] MEDS ORDERED: Zofran 4 MG/2 ML VIAL IV PRN (02:14)
[2022-05-30] MEDS ORDERED: MORPHINE SULFATE 2 MG INJ IV PRN (02:14)
[2022-05-30] MEDS ORDERED: HUMALOG SQ PRN (02:14)
--- NOTE | 2022-05-30 06:28 | XRAY ---
Indication: Nausea, vomiting, diarrhea, weakness, and fever. Multiple contiguous axial images obtained through the abdomen and pelvis without contrast. Comparison: None Lung bases clear. Heart not enlarged. Noncontrasted stomach and bowel loops appear nonobstructed with normal appendix. Radiopacities in the distal small bowel and right hemicolon presumed ingested medication/bismuth versus barium. A few bilateral renal calculi, largest right lower pole measuring 2.4 cm. No hydronephrosis or hydroureter. Diffuse fatty liver and subcentimeter gallstone. No free fluid/air. Remaining liver, pancreas, pancreas, spleen, adrenal glands, kidneys, ureters, and bladder are unremarkable for noncontrast exam. Minimal aortoiliac calcifications without AAA. Osseous structures intact with mild degenerative changes of the visualized thoracic spine. Impression: 1. Nonobstructing bilateral renal calculi, small gallstone, diffuse fatty liver, and chronic bony findings. 2. Remaining CT abdomen/pelvis without contrast exam is negative. Comment: Preliminary interpretation made by [facility]. No critical discrepancy.
[2022-05-30 06:29] LABS: Absolute Neutrophil Ct (ANC) 14.68 x10^3/uL (1.4-6.9); Basophil (Absolute #) 0.03 x10^3/uL (0-0.4); Eosinophil % 0.1 % (0.00-5.0); Eosinophil (Absolute #) 0.01 x10^3/uL (0-0.5); Hematocrit 41.2 % (42-50); Hemoglobin 12.9 g/dL (12.5-18.0); Lymphocyte (Absolute #) 0.59 x10^3/uL (1.0-4.6); Lymphocytes % 3.6 % (24.0-44.0); Mean Cell Volume 81.3 fL (78-100); Mean Corpuscular Hemoglobin 25.4 pg (26-32); Mean Corpuscular Hgb Concent. 31.3 g/dL (32-36); Mean Platelet Volume 10.5 fL (7.5-11.0); Monocytes % 6.1 % (0.0-12.0); Neutrophil % 88.8 % (36.0-66.0); Platelet Count 356 x10^3/uL (150-450); Red Blood Count 5.07 x10^6/uL (4.1-5.6); Red Cell Distribution Width 12.8 % (11.5-14.0); White Blood Count 16.5 x10^3/uL (4.0-10.5)
[2022-05-30 06:44] LABS: ALKALINE PHOSPHATASE 145 U/L (38-126); ANION GAP 22.8 MEQ/L (5-15); BLOOD UREA NITROGEN 12 mg/dL (9-20); CHLORIDE 90 mmol/L (98-107); Calcium 7.9 mg/dL (8.4-10.2); Carbon Dioxide 21 mmol/L (22-30); Creatinine 1 0.65 mg/dL (0.66-1.25); EST GLOMERULAR FILTRATION RATE > 60.0 ML/MIN; Glucose 395 mg/dL (74-106); Potassium 3.4 mmol/L (3.5-5.1); SGOT/AST 15 U/L (17-59); SGPT/ALT 10 U/L (0-50); SODIUM 130 mmol/L (137-145); Total Protein 6.3 g/dL (6.3-8.2)
[2022-05-30] MEDS: PROTONIX 40 MG IV IV SCH (09:18)
[2022-05-30] MEDS ORDERED: Levofloxacin 500MG/100ML D5W 500 MG/100 ML BAG IV SCH (10:00)
[2022-05-30] MEDS: Sodium Chloride 0.9% W/ 20 mEq KCl/LITER 1,000 ML IV SCH ×2 (10:23→20:21)
[2022-05-30] MEDS ORDERED: PHARMACY DOSING REQUEST MC ONE (12:08)
[2022-05-30] MEDS ORDERED: Lantus Insulin SQ ONE (12:12)
[2022-05-30] MEDS: HUMALOG SQ PRN ×3 (13:27→21:33)
[2022-05-30] MEDS: Merrem 1 GM in Sodium Chloride 100ML MINI-BAG PLUS 100 ML IV SCH ×2 (13:52→21:33)
--- NOTE | 2022-05-30 13:59 | PCM.HP ---
History of Present Illness - Chief Complaint Chief Complaint: Hyperglycemia History of Present Illness: is a 57 year old male.with history of diabetes mellitus poorly controlled, hypertension, hyperlipidemia, chronic lower extremity swelling needing Unna boot wrap regularly presented in the ER via EMS with generalized weakness fatigue and tiredness and not feeling well. Patient report he is having abdominal pain off and on with loose stool and nausea. Reports his pain in the abdomen is better currently. No chest pain palpitations or shortness of breath. Has bilateral lower extremity swelling which is not any worse than usual. Patient has multiple skin insect bites and also has irritation at the nape of neck which according to him is from the brace he puts on because of his scoliosis. Timing/Duration: day(s), gradual onset, worse Quality: cramping Abdominal Pain Onset Location: generalized abdomen Pain Radiation: no radiation Severity of Pain-Max: moderate Severity of Pain-Current: none Associated Symptoms: diarrhea, nausea Patient has been diabetic for last 18 years but cannot afford medications due to no affordable health insurance. - Review of Systems Constitutional: No Fever, No Chills Eyes: No Symptoms Ears, Nose, & Throat: No Symptoms Respiratory: No Cough, No Short Of Breath Cardiac: No Chest Pain, No Edema, No Syncope Abdominal/Gastrointestinal: Abdominal Pain, No Nausea, No Vomiting, No Diarrhea Genitourinary Symptoms: No Dysuria Musculoskeletal: No Back Pain, No Neck Pain Skin: No Rash Neurological: No Dizziness, No Focal Weakness, No Sensory Changes Psychological: No Symptoms Endocrine: No Symptoms Hematologic/Lymphatic: No Symptoms Immunological/Allergic: No Symptoms Medications & Allergies Home Medications: Home Medication List No Reportable Medications [No Reported Medications] 05/30/22 [History Confirmed 05/30/22] Allergies/Adverse Reactions: Allergies Allergy/AdvReac Type Severity Reaction Status Date / Time Penicillins Allergy Verified 01/26/19 02:07 Sulfa (Sulfonamide Allergy Verified 05/29/22 22:21 Antibiotics) - Past Medical History Past Medical History: Yes Neurological History: No Pertinent History ENT History: No Pertinent History Cardiac History: No Pertinent History Respiratory History: No Pertinent History Endocrine Medical History: Diabetes Type II Musculoskelatal History: Arthritis GI Medical History: No Pertinent History History: No Pertinent History Pyscho-Social History: No Pertinent History Male Reproductive Disorders: No Pertinent History - Past Surgical History Past Surgical History: No Neuro Surgical History: No Pertinent History Cardiac History: No Pertinent History Respiratory Surgery: No Pertinent History GI Surgical History: No Pertinent History Genitourinary Surgical Hx: No Pertinent History Musculskeletal Surgical Hx: No Pertinent History Male Surgical History: No Pertinent History - Social History Smoking Status: Never smoker Exposure to second hand smoke: No Alcohol: None Drug Use: none - Physical Exam Vital Signs: Vital Signs - 24 hr Temp Pulse Resp BP Pulse Ox 05/30/22 12:00 98.2 F 72 21 122/60 98 05/30/22 08:00 97.5 F 92 H 25 H 135/65 95 05/30/22 04:00 97.7 F 96 H 19 149/70 97 05/30/22 02:43 97.7 F 96 H 19 149/70 97 05/30/22 02:07 92 H 18 130/80 94 L 05/30/22 01:41 88 18 145/87 94 L 05/29/22 23:54 98 05/29/22 23:02 110 H 20 155/89 98 05/29/22 22:02 98.3 F 100 H 18 132/79 95 General Appearance: no apparent distress, alert Neurologic Exam: alert, oriented x 3, cooperative, normal mood/affect, nml cerebellar function, nml station & gait, sensation nml, No motor deficits Eye Exam: PERRL/EOMI, eyes nml inspection Ears, Nose, Throat Exam: normal ENT inspection, TMs normal, pharynx normal, moist mucous membranes Neck Exam: normal inspection, non-tender, supple, full range of motion Respiratory Exam: normal breath sounds, lungs clear, No respiratory distress Cardiovascular Exam: regular rate/rhythm, normal heart sounds, normal peripheral pulses Gastrointestinal/Abdomen Exam: soft, normal bowel sounds, No tenderness, No mass Back Exam: normal inspection, normal range of motion, No CVA tenderness, No vertebral tenderness Extremity Exam: normal inspection, normal range of motion, pelvis stable Skin Exam: normal color, warm, dry, No rash Lymphatic Exam: No adenopathy Results - Labs Lab/Micro Results: Lab Results-Last 24 Hours 05/29/22 05/29/22 05/29/22 Range/Units 22:30 22:38 22:38 WBC 15.8 H (4.0-10.5) x10^3/uL RBC 5.40 (4.1-5.6) x10^6/uL Hgb 14.3 (12.5-18.0) g/dL Hct 44.1 (42-50) % MCV 81.7 (78-100) fL MCH 26.5 (26-32) pg MCHC 32.4 (32-36) g/dL RDW 12.6 (11.5-14.0) % Plt Count 361 (150-450) x10^3/uL MPV 9.9 (7.5-11.0) fL Gran % 88.8 H (36.0-66.0) % Immature Gran % (Auto) 1.4 H (0.00-0.4) % Nucleat RBC Rel Count 0.0 (0.00-0.1) % Eos # (Auto) 0.01 (0-0.5) x10^3/uL Immature Gran # (Auto) 0.22 H (0.00-0.03) x10^3u/L Absolute Lymphs (auto) 0.44 L (1.0-4.6) x10^3/uL Absolute Monos (auto) 1.04 (0.0-1.3) x10^3/uL Absolute Nucleated RBC 0.00 (0.00-0.01) x10^3u/L Lymphocytes % 2.8 L (24.0-44.0) % Monocytes % 6.6 (0.0-12.0) % Eosinophils % 0.1 (0.00-5.0) % Basophils % 0.3 (0.0-0.4) % Absolute Granulocytes 14.07 H (1.4-6.9) x10^3/uL Basophils # 0.04 (0-0.4) x10^3/uL pO2/FiO2 Ratio % VBG pH (7.32-7.42) VBG pCO2 at Pat Temp (42-55) mm/Hg VBG pO2 at Pat Temp (25-40) mm/Hg VBG HCO3 (22-28) meq/L VBG O2 Sat ([place]ulce) (95-100) VBG Base Excess (-2.0-2.0) VBG Hemoglobin VBG Carboxyhemoglobin (0.0-6.9) % T HGB POC Potassium (3.5-5.1) Sodium 130 L (137-145) mmol/L Potassium 3.3 L (3.5-5.1) mmol/L Chloride 87 L (98-107) mmol/L Carbon Dioxide 22 (22-30) mmol/L Anion Gap 23.6 H (5-15) MEQ/L BUN 13 (9-20) mg/dL Creatinine 0.66 (0.66-1.25) mg/dL Estimated GFR > 60.0 ML/MIN Glucose 392 H (74-106) mg/dL POC Glucometer (74 to 106) mg/dL Hemoglobin A1c (4.5-6.0) % Lactic Acid 2.2 H (0.4-2.0) Calcium 8.2 L (8.4-10.2) mg/dL Magnesium (1.6-2.3) mg/dL Total Bilirubin 0.50 (0.2-1.3) mg/dL AST 17 (17-59) U/L ALT 13 (0-50) U/L Alkaline Phosphatase 152 H (38-126) U/L NT-Pro-B Natriuret Pep (0-900) pg/mL Serum Total Protein 6.9 (6.3-8.2) g/dL Albumin 3.3 L (3.5-5.0) g/dL Lipase (23-300) U/L Procalcitonin (0.030-0.080) ng/mL Urinalys Dipstick Clnc Urine Color (YELLOW) Urine Appearance (CLEAR) Urine pH (5-6) Ur Specific [place] (1.005-1.025) POC Urine Protein Conf (Negative) Urine Ketones (NEGATIVE) Urine Nitrite (NEGATIVE) Urine Bilirubin (NEGATIVE) Urine Urobilinogen (0-1) mg/dL Urine Leukocytes (NEGATIVE) Urine WBC (Auto) (0-5) /HPF Urine RBC (Auto) (0-2) /HPF U Hyaline Cast (Auto) (0-2) /LPF U Epithel Cells (Auto) (FEW) /HPF Urine Bacteria (Auto) (NEGATIVE) /HPF Urine RBC (0-5) Gino/ul Granular Casts (Auto) (NEGATIVE) /LPF Ur Culture Indicated? Urine Glucose (NEGATIVE) mg/dL Influenza Type A Ag (NEGATIVE) Influenza Type B Ag (NEGATIVE) RSV (PCR) (Negative) SARS-CoV-2 (PCR) (NEGATIVE) 05/29/22 05/29/22 05/29/22 Range/Units 22:38 23:02 23:13 WBC (4.0-10.5) x10^3/uL RBC (4.1-5.6) x10^6/uL Hgb (12.5-18.0) g/dL Hct (42-50) % MCV (78-100) fL MCH (26-32) pg MCHC (32-36) g/dL RDW (11.5-14.0) % Plt Count (150-450) x10^3/uL MPV (7.5-11.0) fL Gran % (36.0-66.0) % Immature Gran % (Auto) (0.00-0.4) % Nucleat RBC Rel Count (0.00-0.1) % Eos # (Auto) (0-0.5) x10^3/uL Immature Gran # (Auto) (0.00-0.03) x10^3u/L Absolute Lymphs (auto) (1.0-4.6) x10^3/uL Absolute Monos (auto) (0.0-1.3) x10^3/uL Absolute Nucleated RBC (0.00-0.01) x10^3u/L Lymphocytes % (24.0-44.0) % Monocytes % (0.0-12.0) % Eosinophils % (0.00-5.0) % Basophils % (0.0-0.4) % Absolute Granulocytes (1.4-6.9) x10^3/uL Basophils # (0-0.4) x10^3/uL pO2/FiO2 Ratio % VBG pH (7.32-7.42) VBG pCO2 at Pat Temp (42-55) mm/Hg VBG pO2 at Pat Temp (25-40) mm/Hg VBG HCO3 (22-28) meq/L VBG O2 Sat ([place]) (95-100) VBG Base Excess (-2.0-2.0) VBG Hemoglobin VBG Carboxyhemoglobin (0.0-6.9) % T HGB POC Potassium (3.5-5.1) Sodium (137-145) mmol/L Potassium (3.5-5.1) mmol/L Chloride (98-107) mmol/L Carbon Dioxide (22-30) mmol/L Anion Gap (5-15) MEQ/L BUN (9-20) mg/dL Creatinine (0.66-1.25) mg/dL Estimated GFR ML/MIN Glucose (74-106) mg/dL POC Glucometer (74 to 106) mg/dL Hemoglobin A1c (4.5-6.0) % Lactic Acid (0.4-2.0) Calcium (8.4-10.2) mg/dL Magnesium 1.9 (1.6-2.3) mg/dL Total Bilirubin (0.2-1.3) mg/dL AST (17-59) U/L ALT (0-50) U/L Alkaline Phosphatase (38-126) U/L NT-Pro-B Natriuret Pep 192 (0-900) pg/mL Serum Total Protein (6.3-8.2) g/dL Albumin (3.5-5.0) g/dL Lipase (23-300) U/L Procalcitonin 0.338 H (0.030-0.080) ng/mL Urinalys Dipstick Clnc MAIN LAB Urine Color YELLOW (YELLOW) Urine Appearance CLEAR (CLEAR) Urine pH 5.0 (5-6) Ur Specific [place] 1.025 (1.005-1.025) POC Urine Protein Conf NEGATIVE (Negative) Urine Ketones >=160 (NEGATIVE) Urine Nitrite NEGATIVE (NEGATIVE) Urine Bilirubin SMALL (NEGATIVE) Urine Urobilinogen 0.2 (0-1) mg/dL Urine Leukocytes SMALL (NEGATIVE) Urine WBC (Auto) 16-25 (0-5) /HPF Urine RBC (Auto) 6-10 (0-2) /HPF U Hyaline Cast (Auto) 3-5 (0-2) /LPF U Epithel Cells (Auto) RARE (FEW) /HPF Urine Bacteria (Auto) NONE (NEGATIVE) /HPF Urine RBC MODERATE (0-5) Gino/ul Granular Casts (Auto) 2-5 (NEGATIVE) /LPF Ur Culture Indicated? YES Urine Glucose 500 (NEGATIVE) mg/dL Influenza Type A Ag (NEGATIVE) Influenza Type B Ag (NEGATIVE) RSV (PCR) (Negative) SARS-CoV-2 (PCR) (NEGATIVE) 05/29/22 05/29/22 05/30/22 Range/Units 23:18 23:50 00:02 WBC (4.0-10.5) x10^3/uL RBC (4.1-5.6) x10^6/uL Hgb (12.5-18.0) g/dL Hct (42-50) % MCV (78-100) fL MCH (26-32) pg MCHC (32-36) g/dL RDW (11.5-14.0) % Plt Count (150-450) x10^3/uL MPV (7.5-11.0) fL Gran % (36.0-66.0) % Immature Gran % (Auto) (0.00-0.4) % Nucleat RBC Rel Count (0.00-0.1) % Eos # (Auto) (0-0.5) x10^3/uL Immature Gran # (Auto) (0.00-0.03) x10^3u/L Absolute Lymphs (auto) (1.0-4.6) x10^3/uL Absolute Monos (auto) (0.0-1.3) x10^3/uL Absolute Nucleated RBC (0.00-0.01) x10^3u/L Lymphocytes % (24.0-44.0) % Monocytes % (0.0-12.0) % Eosinophils % (0.00-5.0) % Basophils % (0.0-0.4) % Absolute Granulocytes (1.4-6.9) x10^3/uL Basophils # (0-0.4) x10^3/uL pO2/FiO2 Ratio 21.0 % VBG pH 7.43 H (7.32-7.42) VBG pCO2 at Pat Temp 30 L (42-55) mm/Hg VBG pO2 at Pat Temp 80 H (25-40) mm/Hg VBG HCO3 19.9 L (22-28) meq/L VBG O2 Sat ([place]ce) 98.1 (95-100) VBG Base Excess -3.3 L (-2.0-2.0) VBG Hemoglobin 14.3 VBG Carboxyhemoglobin 2.6 (0.0-6.9) % T HGB POC Potassium 3.1 L (3.5-5.1) Sodium (137-145) mmol/L Potassium (3.5-5.1) mmol/L Chloride (98-107) mmol/L Carbon Dioxide (22-30) mmol/L Anion Gap (5-15) MEQ/L BUN (9-20) mg/dL Creatinine (0.66-1.25) mg/dL Estimated GFR ML/MIN Glucose (74-106) mg/dL POC Glucometer 387 H (74 to 106) mg/dL Hemoglobin A1c (4.5-6.0) % Lactic Acid (0.4-2.0) Calcium (8.4-10.2) mg/dL Magnesium (1.6-2.3) mg/dL Total Bilirubin (0.2-1.3) mg/dL AST (17-59) U/L ALT (0-50) U/L Alkaline Phosphatase (38-126) U/L NT-Pro-B Natriuret Pep (0-900) pg/mL Serum Total Protein (6.3-8.2) g/dL Albumin (3.5-5.0) g/dL Lipase 26 (23-300) U/L Procalcitonin (0.030-0.080) ng/mL Urinalys Dipstick Clnc Urine Color (YELLOW) Urine Appearance (CLEAR) Urine pH (5-6) Ur Specific [place] (1.005-1.025) POC Urine Protein Conf (Negative) Urine Ketones (NEGATIVE) Urine Nitrite (NEGATIVE) Urine Bilirubin (NEGATIVE) Urine Urobilinogen (0-1) mg/dL Urine Leukocytes (NEGATIVE) Urine WBC (Auto) (0-5) /HPF Urine RBC (Auto) (0-2) /HPF U Hyaline Cast (Auto) (0-2) /LPF U Epithel Cells (Auto) (FEW) /HPF Urine Bacteria (Auto) (NEGATIVE) /HPF Urine RBC (0-5) Gino/ul Granular Casts (Auto) (NEGATIVE) /LPF Ur Culture Indicated? Urine Glucose (NEGATIVE) mg/dL Influenza Type A Ag (NEGATIVE) Influenza Type B Ag (NEGATIVE) RSV (PCR) (Negative) SARS-CoV-2 (PCR) (NEGATIVE) 09/03/22 09/03/22 09/03/22 Range/Units 00:05 01:10 05:59 WBC 16.5 H (4.0-10.5) x10^3/uL RBC 5.07 (4.1-5.6) x10^6/uL Hgb 12.9 (12.5-18.0) g/dL Hct 41.2 L (42-50) % MCV 81.3 (78-100) fL MCH 25.4 L (26-32) pg MCHC 31.3 L (32-36) g/dL RDW 12.8 (11.5-14.0) % Plt Count 356 (150-450) x10^3/uL MPV 10.5 (7.5-11.0) fL Gran % 88.8 H (36.0-66.0) % Immature Gran % (Auto) 1.2 H (0.00-0.4) % Nucleat RBC Rel Count 0.0 (0.00-0.1) % Eos # (Auto) 0.01 (0-0.5) x10^3/uL Immature Gran # (Auto) 0.19 H (0.00-0.03) x10^3u/L Absolute Lymphs (auto) 0.59 L (1.0-4.6) x10^3/uL Absolute Monos (auto) 1.00 (0.0-1.3) x10^3/uL Absolute Nucleated RBC 0.00 (0.00-0.01) x10^3u/L Lymphocytes % 3.6 L (24.0-44.0) % Monocytes % 6.1 (0.0-12.0) % Eosinophils % 0.1 (0.00-5.0) % Basophils % 0.2 (0.0-0.4) % Absolute Granulocytes 14.68 H (1.4-6.9) x10^3/uL Basophils # 0.03 (0-0.4) x10^3/uL pO2/FiO2 Ratio % VBG pH (7.32-7.42) VBG pCO2 at Pat Temp (42-55) mm/Hg VBG pO2 at Pat Temp (25-40) mm/Hg VBG HCO3 (22-28) meq/L VBG O2 Sat ([place]ul[place]) (95-100) VBG Base Excess (-2.0-2.0) VBG Hemoglobin VBG Carboxyhemoglobin (0.0-6.9) % T HGB POC Potassium (3.5-5.1) Sodium (137-145) mmol/L Potassium (3.5-5.1) mmol/L Chloride (98-107) mmol/L Carbon Dioxide (22-30) mmol/L Anion Gap (5-15) MEQ/L BUN (9-20) mg/dL Creatinine (0.66-1.25) mg/dL Estimated GFR ML/MIN Glucose (74-106) mg/dL POC Glucometer (74 to 106) mg/dL Hemoglobin A1c (4.5-6.0) % Lactic Acid 1.7 (0.4-2.0) Calcium (8.4-10.2) mg/dL Magnesium (1.6-2.3) mg/dL Total Bilirubin (0.2-1.3) mg/dL AST (17-59) U/L ALT (0-50) U/L Alkaline Phosphatase (38-126) U/L NT-Pro-B Natriuret Pep (0-900) pg/mL Serum Total Protein (6.3-8.2) g/dL Albumin (3.5-5.0) g/dL Lipase (23-300) U/L Procalcitonin (0.030-0.080) ng/mL Urinalys Dipstick Clnc Urine Color (YELLOW) Urine Appearance (CLEAR) Urine pH (5-6) Ur Specific [place] (1.005-1.025) POC Urine Protein Conf (Negative) Urine Ketones (NEGATIVE) Urine Nitrite (NEGATIVE) Urine Bilirubin (NEGATIVE) Urine Urobilinogen (0-1) mg/dL Urine Leukocytes (NEGATIVE) Urine WBC (Auto) (0-5) /HPF Urine RBC (Auto) (0-2) /HPF U Hyaline Cast (Auto) (0-2) /LPF U Epithel Cells (Auto) (FEW) /HPF Urine Bacteria (Auto) (NEGATIVE) /HPF Urine RBC (0-5) Gino/ul Granular Casts (Auto) (NEGATIVE) /LPF Ur Culture Indicated? Urine Glucose (NEGATIVE) mg/dL Influenza Type A Ag NEGATIVE (NEGATIVE) Influenza Type B Ag NEGATIVE (NEGATIVE) RSV (PCR) NEGATIVE (Negative) SARS-CoV-2 (PCR) NEGATIVE (NEGATIVE) 05/30/22 05/30/22 05/30/22 Range/Units 05:59 07:50 10:33 WBC (4.0-10.5) x10^3/uL RBC (4.1-5.6) x10^6/uL Hgb (12.5-18.0) g/dL Hct (42-50) % MCV (78-100) fL MCH (26-32) pg MCHC (32-36) g/dL RDW (11.5-14.0) % Plt Count (150-450) x10^3/uL MPV (7.5-11.0) fL Gran % (36.0-66.0) % Immature Gran % (Auto) (0.00-0.4) % Nucleat RBC Rel Count (0.00-0.1) % Eos # (Auto) (0-0.5) x10^3/uL Immature Gran # (Auto) (0.00-0.03) x10^3u/L Absolute Lymphs (auto) (1.0-4.6) x10^3/uL Absolute Monos (auto) (0.0-1.3) x10^3/uL Absolute Nucleated RBC (0.00-0.01) x10^3u/L Lymphocytes % (24.0-44.0) % Monocytes % (0.0-12.0) % Eosinophils % (0.00-5.0) % Basophils % (0.0-0.4) % Absolute Granulocytes (1.4-6.9) x10^3/uL Basophils # (0-0.4) x10^3/uL pO2/FiO2 Ratio % VBG pH (7.32-7.42) VBG pCO2 at Pat Temp (42-55) mm/Hg VBG pO2 at Pat Temp (25-40) mm/Hg VBG HCO3 (22-28) meq/L VBG O2 Sat ([place]) (95-100) VBG Base Excess (-2.0-2.0) VBG Hemoglobin VBG Carboxyhemoglobin (0.0-6.9) % T HGB POC Potassium (3.5-5.1) Sodium 130 L (137-145) mmol/L Potassium 3.4 L (3.5-5.1) mmol/L Chloride 90 L (98-107) mmol/L Carbon Dioxide 21 L (22-30) mmol/L Anion Gap 22.8 H (5-15) MEQ/L BUN 12 (9-20) mg/dL Creatinine 0.65 L (0.66-1.25) mg/dL Estimated GFR > 60.0 ML/MIN Glucose 395 H (74-106) mg/dL POC Glucometer 375 H (74 to 106) mg/dL Hemoglobin A1c > 14.00 H (4.5-6.0) % Lactic Acid (0.4-2.0) Calcium 7.9 L (8.4-10.2) mg/dL Magnesium (1.6-2.3) mg/dL Total Bilirubin 0.40 (0.2-1.3) mg/dL AST 15 L (17-59) U/L ALT 10 (0-50) U/L Alkaline Phosphatase 145 H (38-126) U/L NT-Pro-B Natriuret Pep (0-900) pg/mL Serum Total Protein 6.3 (6.3-8.2) g/dL Albumin 3.0 L (3.5-5.0) g/dL Lipase (23-300) U/L Procalcitonin (0.030-0.080) ng/mL Urinalys Dipstick Clnc Urine Color (YELLOW) Urine Appearance (CLEAR) Urine pH (5-6) Ur Specific [place] (1.005-1.025) POC Urine Protein Conf (Negative) Urine Ketones (NEGATIVE) Urine Nitrite (NEGATIVE) Urine Bilirubin (NEGATIVE) Urine Urobilinogen (0-1) mg/dL Urine Leukocytes (NEGATIVE) Urine WBC (Auto) (0-5) /HPF Urine RBC (Auto) (0-2) /HPF U Hyaline Cast (Auto) (0-2) /LPF U Epithel Cells (Auto) (FEW) /HPF Urine Bacteria (Auto) (NEGATIVE) /HPF Urine RBC (0-5) Gino/ul Granular Casts (Auto) (NEGATIVE) /LPF Ur Culture Indicated? Urine Glucose (NEGATIVE) mg/dL Influenza Type A Ag (NEGATIVE) Influenza Type B Ag (NEGATIVE) RSV (PCR) (Negative) SARS-CoV-2 (PCR) (NEGATIVE) 05/30/22 Range/Units 11:26 WBC (4.0-10.5) x10^3/uL RBC (4.1-5.6) x10^6/uL Hgb (12.5-18.0) g/dL Hct (42-50) % MCV (78-100) fL MCH (26-32) pg MCHC (32-36) g/dL RDW (11.5-14.0) % Plt Count (150-450) x10^3/uL MPV (7.5-11.0) fL Gran % (36.0-66.0) % Immature Gran % (Auto) (0.00-0.4) % Nucleat RBC Rel Count (0.00-0.1) % Eos # (Auto) (0-0.5) x10^3/uL Immature Gran # (Auto) (0.00-0.03) x10^3u/L Absolute Lymphs (auto) (1.0-4.6) x10^3/uL Absolute Monos (auto) (0.0-1.3) x10^3/uL Absolute Nucleated RBC (0.00-0.01) x10^3u/L Lymphocytes % (24.0-44.0) % Monocytes % (0.0-12.0) % Eosinophils % (0.00-5.0) % Basophils % (0.0-0.4) % Absolute Granulocytes (1.4-6.9) x10^3/uL Basophils # (0-0.4) x10^3/uL pO2/FiO2 Ratio % VBG pH (7.32-7.42) VBG pCO2 at Pat Temp (42-55) mm/Hg VBG pO2 at Pat Temp (25-40) mm/Hg VBG HCO3 (22-28) meq/L VBG O2 Sat ([place]) (95-100) VBG Base Excess (-2.0-2.0) VBG Hemoglobin VBG Carboxyhemoglobin (0.0-6.9) % T HGB POC Potassium (3.5-5.1) Sodium (137-145) mmol/L Potassium (3.5-5.1) mmol/L Chloride (98-107) mmol/L Carbon Dioxide (22-30) mmol/L Anion Gap (5-15) MEQ/L BUN (9-20) mg/dL Creatinine (0.66-1.25) mg/dL Estimated GFR ML/MIN Glucose (74-106) mg/dL POC Glucometer 370 H (74 to 106) mg/dL Hemoglobin A1c (4.5-6.0) % Lactic Acid (0.4-2.0) Calcium (8.4-10.2) mg/dL Magnesium (1.6-2.3) mg/dL Total Bilirubin (0.2-1.3) mg/dL AST (17-59) U/L ALT (0-50) U/L Alkaline Phosphatase (38-126) U/L NT-Pro-B Natriuret Pep (0-900) pg/mL Serum Total Protein (6.3-8.2) g/dL Albumin (3.5-5.0) g/dL Lipase (23-300) U/L Procalcitonin (0.030-0.080) ng/mL Urinalys Dipstick Clnc Urine Color (YELLOW) Urine Appearance (CLEAR) Urine pH (5-6) Ur Specific [place] (1.005-1.025) POC Urine Protein Conf (Negative) Urine Ketones (NEGATIVE) Urine Nitrite (NEGATIVE) Urine Bilirubin (NEGATIVE) Urine Urobilinogen (0-1) mg/dL Urine Leukocytes (NEGATIVE) Urine WBC (Auto) (0-5) /HPF Urine RBC (Auto) (0-2) /HPF U Hyaline Cast (Auto) (0-2) /LPF U Epithel Cells (Auto) (FEW) /HPF Urine Bacteria (Auto) (NEGATIVE) /HPF Urine RBC (0-5) Gino/ul Granular Casts (Auto) (NEGATIVE) /LPF Ur Culture Indicated? Urine Glucose (NEGATIVE) mg/dL Influenza Type A Ag (NEGATIVE) Influenza Type B Ag (NEGATIVE) RSV (PCR) (Negative) SARS-CoV-2 (PCR) (NEGATIVE) - Radiology Impressions Radiology Exams & Impressions: Radiology Procedures Category Date Time Status ABDOMEN AND PELVIS W/0 CONTRAS [CT] Stat Exams 05/29/22 22:[address]/ABDOMEN AND PELVIS W/0 CONTRAS Indication: Nausea, vomiting, diarrhea, weakness, and fever. Multiple contiguous axial images obtained through the abdomen and pelvis without contrast. Comparison: None Lung bases clear. Heart not enlarged. Noncontrasted stomach and bowel loops appear nonobstructed with normal appendix. Radiopacities in the distal small bowel and right hemicolon presumed ingested medication/bismuth versus barium. A few bilateral renal calculi, largest right lower pole measuring 2.4 cm. No hydronephrosis or hydroureter. Diffuse fatty liver and subcentimeter gallstone. No free fluid/air. Remaining liver, pancreas, pancreas, spleen, adrenal glands, kidneys, ureters, and bladder are unremarkable for noncontrast exam. Minimal aortoiliac calcifications without AAA. Osseous structures intact with mild degenerative changes of the visualized thoracic spine. Impression: 1. Nonobstructing bilateral renal calculi, small gallstone, diffuse fatty liver, and chronic bony findings. 2. Remaining CT abdomen/pelvis without contrast exam is negative. Assessment/Plan (1) Acute UTI Current Visit: Yes Status: Acute Assessment & Plan: Chief Complaint Diagnosis Hyperglycemia Allergies Allergy/AdvReac Type Severity Reaction Status Date / Time Penicillins Allergy Verified 01/26/19 02:07 Sulfa (Sulfonamide Allergy Verified 05/29/22 22:21 Antibiotics) Vital Signs (Last 24 hours) Temp Pulse Resp BP Pulse Ox 05/30/22 12:00 98.2 F 72 21 122/60 98 05/30/22 08:00 97.5 F 92 H 25 H 135/65 95 05/30/22 04:00 97.7 F 96 H 19 149/70 97 05/30/22 02:43 97.7 F 96 H 19 149/70 97 05/30/22 02:07 92 H 18 130/80 94 L 05/30/22 01:41 88 18 145/87 94 L 05/29/22 23:54 98 05/29/22 23:02 110 H 20 155/89 98 05/29/22 22:02 98.3 F 100 H 18 132/79 95 Home Medications Medication Instructions Recorded Confirmed Last Taken Type No Reportable Medications [No 05/30/22 05/30/22 Unknown History Reported Medications] Current Medications Generic Name Dose Route Start Last Admin Trade Name Freq PRN Reason Stop Dose Admin Acetaminophen 650 mg 05/30/22 02:14 Acetaminophen 325 Mg Tablet PO 06/29/22 02:13 Q4H PRN PRN PAIN AND/OR FEVER Potassium Chloride/Sodium Chloride 1,000 mls @ 100 mls/hr 05/30/22 02:14 05/30/22 10:23 Sodium Chloride 0.9% W/ 20 Meq Kcl/Liter IV 06/29/22 02:13 100 mls/hr .Q10H GERRI Administration Meropenem 1 gm/ Sodium 100 mls @ 200 mls/hr 05/30/22 14:00 05/30/22 13:52 Chloride IV 06/02/22 13:59 200 mls/hr Q8HT GERRI Administration Insulin Glargine 50 unit 05/30/22 22:00 Insulin Glargine 1 Unit SQ 06/29/22 21:59 HS GERRI Insulin Human Lispro 0 unit 05/30/22 12:11 05/30/22 13:27 Insulin Lispro 1 Unit SQ 06/29/22 12:10 15 unit UD PRN Administration HYPERGLYCEMIA Metformin HCl 1,000 mg 05/30/22 18:00 Metformin Hcl Er 500 Mg Tab PO 06/29/22 17:59 EVENING MEAL GERRI Morphine Sulfate 2 mg 05/30/22 02:14 Morphine Sulfate 2 Mg/Ml Inj IV 06/04/22 02:13 Q4H PRN PRN PAIN Ondansetron HCl 4 mg 05/30/22 02:14 Ondansetron Hcl 4 Mg/2 Ml Vial IV 06/29/22 02:13 Q6H PRN PRN NAUSEA/VOMITING Pantoprazole Sodium 40 mg 05/30/22 10:00 05/30/22 09:18 Pantoprazole 40 Mg Vial IV 06/29/22 09:59 40 mg Q24H10 GERRI Administration Discontinued Medications Generic Name Dose Route Start Last Admin Trade Name Freq PRN Reason Stop Dose Admin Albuterol/Ipratropium 3 ml 05/30/22 02:14 Ipratropium/Albuterol Sulfate 3 Ml Ampul.Neb IH 06/29/22 02:13 Q6HRT GERRI Sodium Chloride 1,000 mls @ 999 mls/hr 05/29/22 23:37 05/29/22 23:44 Sodium Chloride 0.9% 1000 Ml IV 05/30/22 00:37 999 mls/hr .Q1H1M STA Administration Sodium Chloride Confirm 05/29/22 23:44 Sodium Chloride 0.9% 1000 Ml Administered 05/29/22 23:45 Dose 1,000 mls @ ud .ROUTE .STK-MED ONE Levofloxacin/Dextrose 750 mg in 150 mls @ 100 mls/hr 05/29/22 23:46 05/29/22 23:56 Levofloxacin 750mg/150ml D5w IV 05/30/22 01:15 100 ml/hr STAT STA 100 mls/hr Administration Levofloxacin/Dextrose Confirm 05/29/22 23:54 Levofloxacin 750mg/150ml D5w Administered 05/29/22 23:55 Dose 750 mg in 150 mls @ ud IV .STK-MED ONE Levofloxacin/Dextrose 500 mg in 100 mls @ 100 mls/hr 05/30/22 10:00 05/30/22 09:20 Levofloxacin 500mg/100ml D5w IV 06/29/22 09:59 100 mls/hr Q24H10 GERRI Administration Insulin Glargine 50 unit 05/30/22 12:12 05/30/22 13:27 Insulin Glargine 1 Unit SQ 05/30/22 12:13 50 unit ONCE ONE Administration Insulin Human Lispro 0 unit 05/30/22 02:14 05/30/22 09:23 Insulin Lispro 1 Unit SQ 06/29/22 02:13 11 unit UD PRN Administration HYPERGLYCEMIA Non-Formulary Medication 1 each 05/30/22 12:08 Pharmacy Dosing Request 05/30/22 12:09 STAT ONE Ondansetron HCl 4 mg 05/29/22 22:18 05/29/22 22:30 Ondansetron Hcl 4 Mg/2 Ml Vial IV 05/29/22 22:19 4 mg STAT ONE Administration Ondansetron HCl Confirm 05/29/22 22:29 Ondansetron Hcl 4 Mg/2 Ml Vial Administered 05/29/22 22:30 Dose 4 mg .ROUTE .STK-MED ONE Intake & Output (Last 24 hours) 05/28/22 05/29/22 05/30/22 05/31/22 11:59 11:59 11:59 11:59 Intake Total 240 240 Balance 240 240 Weight 95.3 kg Microbiology Results (Last 24 hours) 05/29/22 23:02 Clean Catch Midstream Urine Culture - Pending 05/29/22 22:38 Blood Blood Culture Gram Stain - Pending 05/29/22 22:38 Blood Blood Culture - Pending 05/29/22 22:38 Blood Blood Culture Gram Stain - Pending 05/29/22 22:38 Blood Blood Culture - Pending Laboratory Results (Last 24 hours) 05/30/22 05/30/22 05/30/22 11:26 10:33 07:50 WBC RBC Hgb Hct MCV MCH MCHC RDW Plt Count MPV Gran % Immature Gran % (Auto) Nucleat RBC Rel Count Eos # (Auto) Immature Gran # (Auto) Absolute Lymphs (auto) Absolute Monos (auto) Absolute Nucleated RBC Lymphocytes % Monocytes % Eosinophils % Basophils % Absolute Granulocytes Basophils # pO2/FiO2 Ratio VBG pH VBG pCO2 at Pat Temp VBG pO2 at Pat Temp VBG HCO3 VBG O2 Sat ([place]) VBG Base Excess VBG Hemoglobin VBG Carboxyhemoglobin POC Potassium Sodium Potassium Chloride Carbon Dioxide Anion Gap BUN Creatinine Estimated GFR Glucose POC Glucometer 370 H 375 H Hemoglobin A1c > 14.00 H Lactic Acid Calcium Magnesium Total Bilirubin AST ALT Alkaline Phosphatase NT-Pro-B Natriuret Pep Serum Total Protein Albumin Lipase Procalcitonin Urinalys Dipstick Clnc Urine Color Urine Appearance Urine pH Ur Specific [place] POC Urine Protein Conf Urine Ketones Urine Nitrite Urine Bilirubin Urine Urobilinogen Urine Leukocytes Urine WBC (Auto) Urine RBC (Auto) U Hyaline Cast (Auto) U Epithel Cells (Auto) Urine Bacteria (Auto) Urine RBC Granular Casts (Auto) Ur Culture Indicated? Urine Glucose Influenza Type A Ag Influenza Type B Ag RSV (PCR) SARS-CoV-2 (PCR) 05/30/22 05/30/22 05/30/22 05:59 05:59 01:10 WBC 16.5 H RBC 5.07 Hgb 12.9 Hct 41.2 L MCV 81.3 MCH 25.4 L MCHC 31.3 L RDW 12.8 Plt Count 356 MPV 10.5 Gran % 88.8 H Immature Gran % (Auto) 1.2 H Nucleat RBC Rel Count 0.0 Eos # (Auto) 0.01 Immature Gran # (Auto) 0.19 H Absolute Lymphs (auto) 0.59 L Absolute Monos (auto) 1.00 Absolute Nucleated RBC 0.00 Lymphocytes % 3.6 L Monocytes % 6.1 Eosinophils % 0.1 Basophils % 0.2 Absolute Granulocytes 14.68 H Basophils # 0.03 pO2/FiO2 Ratio VBG pH VBG pCO2 at Pat Temp VBG pO2 at Pat Temp VBG HCO3 VBG O2 Sat ([place]) VBG Base Excess VBG Hemoglobin VBG Carboxyhemoglobin POC Potassium Sodium 130 L Potassium 3.4 L Chloride 90 L Carbon Dioxide 21 L Anion Gap 22.8 H BUN 12 Creatinine 0.65 L Estimated GFR > 60.0 Glucose 395 H POC Glucometer Hemoglobin A1c Lactic Acid Calcium 7.9 L Magnesium Total Bilirubin 0.40 AST 15 L ALT 10 Alkaline Phosphatase 145 H NT-Pro-B Natriuret Pep Serum Total Protein 6.3 Albumin 3.0 L Lipase Procalcitonin Urinalys Dipstick Clnc Urine Color Urine Appearance Urine pH Ur Specific [place] POC Urine Protein Conf Urine Ketones Urine Nitrite Urine Bilirubin Urine Urobilinogen Urine Leukocytes Urine WBC (Auto) Urine RBC (Auto) U Hyaline Cast (Auto) U Epithel Cells (Auto) Urine Bacteria (Auto) Urine RBC Granular Casts (Auto) Ur Culture Indicated? Urine Glucose Influenza Type A Ag NEGATIVE Influenza Type B Ag NEGATIVE RSV (PCR) NEGATIVE SARS-CoV-2 (PCR) NEGATIVE 05/30/22 05/30/22 05/29/22 00:05 00:02 23:50 WBC RBC Hgb Hct MCV MCH MCHC RDW Plt Count MPV Gran % Immature Gran % (Auto) Nucleat RBC Rel Count Eos # (Auto) Immature Gran # (Auto) Absolute Lymphs (auto) Absolute Monos (auto) Absolute Nucleated RBC Lymphocytes % Monocytes % Eosinophils % Basophils % Absolute Granulocytes Basophils # pO2/FiO2 Ratio 21.0 VBG pH 7.43 H VBG pCO2 at Pat Temp 30 L VBG pO2 at Pat Temp 80 H VBG HCO3 19.9 L VBG O2 Sat ([place]) 98.1 VBG Base Excess -3.3 L VBG Hemoglobin 14.3 VBG Carboxyhemoglobin 2.6 POC Potassium 3.1 L Sodium Potassium Chloride Carbon Dioxide Anion Gap BUN Creatinine Estimated GFR Glucose POC Glucometer 387 H Hemoglobin A1c Lactic Acid 1.7 Calcium Magnesium Total Bilirubin AST ALT Alkaline Phosphatase NT-Pro-B Natriuret Pep Serum Total Protein Albumin Lipase Procalcitonin Urinalys Dipstick Clnc Urine Color Urine Appearance Urine pH Ur Specific [place] POC Urine Protein Conf Urine Ketones Urine Nitrite Urine Bilirubin Urine Urobilinogen Urine Leukocytes Urine WBC (Auto) Urine RBC (Auto) U Hyaline Cast (Auto) U Epithel Cells (Auto) Urine Bacteria (Auto) Urine RBC Granular Casts (Auto) Ur Culture Indicated? Urine Glucose Influenza Type A Ag Influenza Type B Ag RSV (PCR) SARS-CoV-2 (PCR) 05/29/22 05/29/22 05/29/22 23:18 23:13 23:02 WBC RBC Hgb Hct MCV MCH MCHC RDW Plt Count MPV Gran % Immature Gran % (Auto) Nucleat RBC Rel Count Eos # (Auto) Immature Gran # (Auto) Absolute Lymphs (auto) Absolute Monos (auto) Absolute Nucleated RBC Lymphocytes % Monocytes % Eosinophils % Basophils % Absolute Granulocytes Basophils # pO2/FiO2 Ratio VBG pH VBG pCO2 at Pat Temp VBG pO2 at Pat Temp VBG HCO3 VBG O2 Sat ([place]) VBG Base Excess VBG Hemoglobin VBG Carboxyhemoglobin POC Potassium Sodium Potassium Chloride Carbon Dioxide Anion Gap BUN Creatinine Estimated GFR Glucose POC Glucometer Hemoglobin A1c Lactic Acid Calcium Magnesium 1.9 Total Bilirubin AST ALT Alkaline Phosphatase NT-Pro-B Natriuret Pep 192 Serum Total Protein Albumin Lipase 26 Procalcitonin Urinalys Dipstick Clnc MAIN LAB Urine Color YELLOW Urine Appearance CLEAR Urine pH 5.0 Ur Specific [place] 1.025 POC Urine Protein Conf NEGATIVE Urine Ketones >=160 Urine Nitrite NEGATIVE Urine Bilirubin SMALL Urine Urobilinogen 0.2 Urine Leukocytes SMALL Urine WBC (Auto) 16-25 Urine RBC (Auto) 6-10 U Hyaline Cast (Auto) 3-5 U Epithel Cells (Auto) RARE Urine Bacteria (Auto) NONE Urine RBC MODERATE Granular Casts (Auto) 2-5 Ur Culture Indicated? YES Urine Glucose 500 Influenza Type A Ag Influenza Type B Ag RSV (PCR) SARS-CoV-2 (PCR) 05/29/22 05/29/22 05/29/22 22:38 22:38 22:38 WBC 15.8 H RBC 5.40 Hgb 14.3 Hct 44.1 MCV 81.7 MCH 26.5 MCHC 32.4 RDW 12.6 Plt Count 361 MPV 9.9 Gran % 88.8 H Immature Gran % (Auto) 1.4 H Nucleat RBC Rel Count 0.0 Eos # (Auto) 0.01 Immature Gran # (Auto) 0.22 H Absolute Lymphs (auto) 0.44 L Absolute Monos (auto) 1.04 Absolute Nucleated RBC 0.00 Lymphocytes % 2.8 L Monocytes % 6.6 Eosinophils % 0.1 Basophils % 0.3 Absolute Granulocytes 14.07 H Basophils # 0.04 pO2/FiO2 Ratio VBG pH VBG pCO2 at Pat Temp VBG pO2 at Pat Temp VBG HCO3 VBG O2 Sat ([place]) VBG Base Excess VBG Hemoglobin VBG Carboxyhemoglobin POC Potassium Sodium 130 L Potassium 3.3 L Chloride 87 L Carbon Dioxide 22 Anion Gap 23.6 H BUN 13 Creatinine 0.66 Estimated GFR > 60.0 Glucose 392 H POC Glucometer Hemoglobin A1c Lactic Acid Calcium 8.2 L Magnesium Total Bilirubin 0.50 AST 17 ALT 13 Alkaline Phosphatase 152 H NT-Pro-B Natriuret Pep Serum Total Protein 6.9 Albumin 3.3 L Lipase Procalcitonin 0.338 H Urinalys Dipstick Clnc Urine Color Urine Appearance Urine pH Ur Specific [place] POC Urine Protein Conf Urine Ketones Urine Nitrite Urine Bilirubin Urine Urobilinogen Urine Leukocytes Urine WBC (Auto) Urine RBC (Auto) U Hyaline Cast (Auto) U Epithel Cells (Auto) Urine Bacteria (Auto) Urine RBC Granular Casts (Auto) Ur Culture Indicated? Urine Glucose Influenza Type A Ag Influenza Type B Ag RSV (PCR) SARS-CoV-2 (PCR) 05/29/22 22:30 WBC RBC Hgb Hct MCV MCH MCHC RDW Plt Count MPV Gran % Immature Gran % (Auto) Nucleat RBC Rel Count Eos # (Auto) Immature Gran # (Auto) Absolute Lymphs (auto) Absolute Monos (auto) Absolute Nucleated RBC Lymphocytes % Monocytes % Eosinophils % Basophils % Absolute Granulocytes Basophils # pO2/FiO2 Ratio VBG pH VBG pCO2 at Pat Temp VBG pO2 at Pat Temp VBG HCO3 VBG O2 Sat ([place]) VBG Base Excess VBG Hemoglobin VBG Carboxyhemoglobin POC Potassium Sodium Potassium Chloride Carbon Dioxide Anion Gap BUN Creatinine Estimated GFR Glucose POC Glucometer Hemoglobin A1c Lactic Acid 2.2 H Calcium Magnesium Total Bilirubin AST ALT Alkaline Phosphatase NT-Pro-B Natriuret Pep Serum Total Protein Albumin Lipase Procalcitonin Urinalys Dipstick Clnc Urine Color Urine Appearance Urine pH Ur Specific [place] POC Urine Protein Conf Urine Ketones Urine Nitrite Urine Bilirubin Urine Urobilinogen Urine Leukocytes Urine WBC (Auto) Urine RBC (Auto) U Hyaline Cast (Auto) U Epithel Cells (Auto) Urine Bacteria (Auto) Urine RBC Granular Casts (Auto) Ur Culture Indicated? Urine Glucose Influenza Type A Ag Influenza Type B Ag RSV (PCR) SARS-CoV-2 (PCR) Orders (Last 24 hours) Category Date Time Status Bedrest ROUTINE Activity 05/30/22 02:14 Active Up With Assistance ROUTINE Activity 05/30/22 02:14 Active Code Status Order ROUTINE Care 05/30/22 02:14 Active Fall Protocol Q1H Care 05/30/22 02:14 Active IV Care Q6H Care 05/30/22 02:14 Active IV Insertion STAT Care 05/29/22 22:18 Completed Neuro Checks Q4H Care 05/30/22 02:14 Active POCT Glucose Check ACHS Care 05/30/22 02:[address] in Observation ROUTINE Care 05/30/22 02:14 Active Nolan Avalos, Apply ROUTINE Care 05/30/22 02:14 Active Weight,Daily 0600 Care 05/30/22 02:14 Active [employer] System Maintainer/Discharge Plan ROUTINE Cons 05/30/22 02:56 Active Consistent Carbohydrate Diet 1800 Calorie Diet 05/30/22 Breakfast Active ABDOMEN AND PELVIS W/0 CONTRAS [CT] Stat Exams 05/29/22 22:18 Completed BLOOD CULTURE Stat Lab 05/29/22 22:38 Received BNP [NT PRO BNP] Stat Lab 05/29/22 23:13 Completed CBC W DIFF AM.LAB Lab 05/30/22 05:59 Completed CBC W DIFF Stat Lab 05/29/22 22:38 Completed CMP AM.LAB Lab 05/30/22 05:59 Completed CMP Stat Lab 05/29/22 22:38 Completed COVID/FLU/RSV Panel Stat Lab 05/30/22 01:10 Completed CULTURE,URINE Stat Lab 05/29/22 23:02 Received HEMOGLOBIN A1C Urgent Lab 05/30/22 10:33 Completed LIPASE Stat Lab 05/29/22 23:18 Completed Lactic Acid Routine Lab 05/30/22 00:05 Completed Lactic Acid Stat Lab 05/29/22 22:30 Completed MAG [MAGNESIUM] Stat Lab 05/29/22 23:13 Completed POCT GLUCOSE Stat Lab 05/29/22 23:50 Completed POCT GLUCOSE Stat Lab 05/30/22 07:50 Completed POCT GLUCOSE Stat Lab 05/30/22 11:26 Completed PROCALCITONIN Stat Lab 05/29/22 22:38 Completed UA W/RFX CULTURE Stat Lab 05/29/22 23:02 Completed VENOUS BLOOD GAS Stat Lab 05/29/22 23:53 Completed Acetaminophen 325 mg [Tylenol 325 mg] Med 05/30/22 02:14 Active 650 mg PO Q4H PRN PRN Albuterol/Ipratropium 3ml Neb* [DUONEB 0.5-3 MG/3 ml Med 05/30/22 02:14 Discontinued Neb] 3 ml IH Q6HRT Insulin Glargine [Lantus Insulin] Med 05/30/22 22:00 Active 50 unit SQ HS Insulin Glargine [Lantus Insulin] Med 05/30/22 12:12 Discontinued 50 unit SQ ONCE ONE Insulin Lispro [Humalog] Med 05/30/22 02:14 Discontinued See Dose Instructions SQ UD PRN Insulin Lispro [Humalog] Med 05/30/22 12:11 Active See Dose Instructions SQ UD PRN Levofloxacin [Levofloxacin 500MG/100ML D5W] Med 05/30/22 10:00 Discontinued 500 mg in 100 ml IV Q24H10 Levofloxacin [Levofloxacin 750Mg/150Ml D5w] Med 05/29/22 23:46 Discontinued 750 mg in 150 ml IV STAT Levofloxacin [Levofloxacin 750Mg/150Ml D5w] Med 05/29/22 23:54 Discontinued 750 mg in 150 ml IV UD Meropenem [Merrem] 1 gm Med 05/30/22 14:00 Active NaCl 0.9% 100 ml Mini-Bag Plus [Sodium Chloride 100ML MINI-BAG PLUS] 100 ml IV Q8HT Metformin HCl Xr 500 mg [Glucophage XR 500 MG] Med 05/30/22 18:00 Active 1,000 mg PO EVENING MEAL Morphine Sulfate 2 mg Inj Med 05/30/22 02:14 Active 2 mg IV Q4H PRN PRN NaCl 0.9% 1000 ml + KCl 20 Meq [Sodium Chloride 0.9% W/ Med 05/30/22 02:14 Active 20 mEq KCl/LITER] 1,000 ml IV 100 mls/hr NaCl 0.9% 1000 ml [Sodium Chloride 0.9% 1000 ML] 1,000 Med 05/29/22 23:44 Discontinued ml .ROUTE UD NaCl 0.9% 1000 ml [Sodium Chloride 0.9% 1000 ML] 1,000 Med 05/29/22 23:37 Discontinued ml IV 999 mls/hr Ondansetron HCl 4 mg/2 ml [Zofran 4 MG/2 ML VIAL] Med 05/29/22 22:29 Discontinued 4 mg .ROUTE .STK-MED ONE Ondansetron HCl 4 mg/2 ml [Zofran 4 MG/2 ML VIAL] Med 05/30/22 02:14 Active 4 mg IV Q6H PRN PRN Ondansetron HCl 4 mg/2 ml [Zofran 4 MG/2 ML VIAL] Med 05/29/22 22:18 Discontinued 4 mg IV STAT ONE Pantoprazole 40 mg [Protonix 40 mg IV] Med 05/30/22 10:00 Active 40 mg IV Q24H10 Pharmacy Dosing Request Med 05/30/22 12:08 Discontinued 1 each STAT ONE PT Screen per Nursing Assess ONCE PT 05/30/22 02:56 Active Transfer Order Routine Transfer 05/30/22 Completed Patient Care Notes (Last 24 hours) 05/30/22 07:37 Nursing Note by Melissa Perez Upon arrival to unit pt was educated on how to use call light and wait for staff to assist to toileting. Previously, pt had been using call light and waiting for staff until getting up. This RN was notified by SIX P[employer] LOADER OPERATOR that pt had fallen. S[employer] P[employer] LOADER OPERATOR went to room to do vitals and pt was on floor by foot of bed. Placed lift sling under pt and assisted pt with lift to sitting on side of bed. Pt denies hitting head and no new injuries or wounds observed or reported by pt. Vitals were Temp 97.5, 92 HR, 95% on RA, BP 135/65. Pt assisted with walker and assist x2 to toilet. Transferred back to chair and pt re-educated on how to use call light and wait for staff before getting up. Initialized on 05/30/22 07:37 - END OF NOTE Code(s): N39.0 - URINARY TRACT INFECTION, SITE NOT SPECIFIED (2) Uncontrolled diabetes mellitus Current Visit: Yes Status: Acute Qualifiers: Diabetes mellitus type: type 2 Glycemic state: with hyperglycemia Qualified Code(s): E11.65 - Type 2 diabetes mellitus with hyperglycemia Code(s): BTP3682 - (3) Gall stone Current Visit: Yes Status: Chronic Qualifiers: Cholecystitis presence: without cholecystitis Code(s): K80.20 - CALCULUS OF GALLBLADDER W/O CHOLECYSTITIS W/O OBSTRUCTION (4) Renal stones Current Visit: Yes Status: Chronic
[2022-05-30] MEDS: Glucophage XR 500 MG PO SCH (17:56)
[2022-05-30] MEDS: Lomotil PO PRN (20:32)
[2022-05-30] MEDS: Lantus Insulin SQ SCH (21:33)
[2022-05-31] MEDS: Sodium Chloride 0.9% W/ 20 mEq KCl/LITER 1,000 ML IV SCH ×2 (05:59→16:57)
[2022-05-31] MEDS: Merrem 1 GM in Sodium Chloride 100ML MINI-BAG PLUS 100 ML IV SCH ×3 (06:00→22:13)
[2022-05-31 06:45] LABS: Absolute Neutrophil Ct (ANC) 15.46 x10^3/uL (1.4-6.9); Basophil (Absolute #) 0.05 x10^3/uL (0-0.4); Eosinophil % 0.3 % (0.00-5.0); Eosinophil (Absolute #) 0.05 x10^3/uL (0-0.5); Hematocrit 41.1 % (42-50); Hemoglobin 13.6 g/dL (12.5-18.0); Lymphocyte (Absolute #) 0.57 x10^3/uL (1.0-4.6); Lymphocytes % 3.3 % (24.0-44.0); Mean Cell Volume 79.2 fL (78-100); Mean Corpuscular Hemoglobin 26.2 pg (26-32); Mean Corpuscular Hgb Concent. 33.1 g/dL (32-36); Mean Platelet Volume 10.1 fL (7.5-11.0); Monocyte (Absolute #) 0.88 x10^3/uL (0.0-1.3); Monocytes % 5.1 % (0.0-12.0); Neutrophil % 89.3 % (36.0-66.0); Platelet Count 323 x10^3/uL (150-450); Red Blood Count 5.19 x10^6/uL (4.1-5.6); Red Cell Distribution Width 12.6 % (11.5-14.0); White Blood Count 17.3 x10^3/uL (4.0-10.5)
[2022-05-31 07:00] LABS: ALBUMIN 2.7 g/dL (3.5-5.0); ALKALINE PHOSPHATASE 119 U/L (38-126); ANION GAP 8.2 MEQ/L (5-15); BLOOD UREA NITROGEN 10 mg/dL (9-20); CHLORIDE 99 mmol/L (98-107); Calcium 7.8 mg/dL (8.4-10.2); Carbon Dioxide 28 mmol/L (22-30); Creatinine 1 0.44 mg/dL (0.66-1.25); EST GLOMERULAR FILTRATION RATE > 60.0 ML/MIN; Glucose 279 mg/dL (74-106); SGOT/AST 13 U/L (17-59); SGPT/ALT 9 U/L (0-50); SODIUM 133 mmol/L (137-145)
[2022-05-31] MEDS: HUMALOG SQ PRN ×4 (08:31→22:11)
--- NOTE | 2022-05-31 08:56 | PCM.NOTE ---
Date and Time: 05/31/22 0854 Subjective Assessment: feeling better - Review of Systems Constitutional: No Fever, No Chills Eyes: No Symptoms Ears, Nose, & Throat: No Symptoms Respiratory: No Cough, No Short Of Breath Cardiac: No Chest Pain, No Edema, No Syncope Abdominal/Gastrointestinal: No Abdominal Pain, No Nausea, No Vomiting, No Diarrhea Genitourinary Symptoms: No Dysuria Musculoskeletal: No Back Pain, No Neck Pain Skin: Cellulitis (lower extrimities), No Rash Neurological: No Dizziness, No Focal Weakness, No Sensory Changes Psychological: No Symptoms Endocrine: No Symptoms Hematologic/Lymphatic: No Symptoms Immunological/Allergic: No Symptoms Objective Exam General Appearance: no apparent distress, alert Neurologic Exam: alert, oriented x 3, cooperative, normal mood/affect, nml cerebellar function, sensation nml, No motor deficits Skin Exam: normal color, warm, dry Eye Exam: PERRL, EOMI, eyes nml inspection Ears, Nose, Throat Exam: normal ENT inspection, pharynx normal, moist mucous membranes Neck Exam: normal inspection, non-tender, supple, full range of motion Respiratory Exam: normal breath sounds, lungs clear, No respiratory distress Cardiovascular Exam: regular rate/rhythm, normal heart sounds Gastrointestinal/Abdomen Exam: soft, No tenderness, No mass Extremity Exam: normal inspection, normal range of motion, inflammation, swelling Back Exam: normal inspection, normal range of motion, No CVA tenderness, No vertebral tenderness Male Genitalia Exam: deferred Rectal Exam: deferred OBJECTIVE DATA Vital Signs: Vital Signs - 24 hr Temp Pulse Resp BP Pulse Ox 05/31/22 07:09 98.4 F 83 16 109/51 95 05/31/22 04:00 97.8 F 80 12 114/57 96 05/31/22 00:00 85 05/30/22 19:50 98.2 F 81 19 136/63 100 05/30/22 16:40 98.7 F 89 21 133/63 99 05/30/22 16:00 98.2 F 72 21 122/60 98 05/30/22 12:00 98.2 F 72 21 122/60 98 Pain Assessment - Last Documented Pain Intensity 0 Intake and Output: Intake & Output 05/28/22 05/29/22 05/30/22 05/31/22 11:59 11:59 11:59 11:59 Intake Total 240 3882 Balance 240 3882 Weight 95.3 kg Lab Results: Lab Results-Last 24 Hours 05/30/22 05/30/22 05/30/22 Range/Units 10:33 11:26 16:24 WBC (4.0-10.5) x10^3/uL RBC (4.1-5.6) x10^6/uL Hgb (12.5-18.0) g/dL Hct (42-50) % MCV (78-100) fL MCH (26-32) pg MCHC (32-36) g/dL RDW (11.5-14.0) % Plt Count (150-450) x10^3/uL MPV (7.5-11.0) fL Gran % (36.0-66.0) % Immature Gran % (Auto) (0.00-0.4) % Nucleat RBC Rel Count (0.00-0.1) % Eos # (Auto) (0-0.5) x10^3/uL Immature Gran # (Auto) (0.00-0.03) x10^3u/L Absolute Lymphs (auto) (1.0-4.6) x10^3/uL Absolute Monos (auto) (0.0-1.3) x10^3/uL Absolute Nucleated RBC (0.00-0.01) x10^3u/L Lymphocytes % (24.0-44.0) % Monocytes % (0.0-12.0) % Eosinophils % (0.00-5.0) % Basophils % (0.0-0.4) % Absolute Granulocytes (1.4-6.9) x10^3/uL Basophils # (0-0.4) x10^3/uL Sodium (137-145) mmol/L Potassium (3.5-5.1) mmol/L Chloride (98-107) mmol/L Carbon Dioxide (22-30) mmol/L Anion Gap (5-15) MEQ/L BUN (9-20) mg/dL Creatinine (0.66-1.25) mg/dL Estimated GFR ML/MIN Glucose (74-106) mg/dL POC Glucometer 370 H 321 H (74 to 106) mg/dL Hemoglobin A1c > 14.00 H (4.5-6.0) % Calcium (8.4-10.2) mg/dL Total Bilirubin (0.2-1.3) mg/dL AST (17-59) U/L ALT (0-50) U/L Alkaline Phosphatase (38-126) U/L Serum Total Protein (6.3-8.2) g/dL Albumin (3.5-5.0) g/dL 05/30/22 05/30/22 05/31/22 Range/Units 17:49 20:45 05:35 WBC 17.3 H (4.0-10.5) x10^3/uL RBC 5.19 (4.1-5.6) x10^6/uL Hgb 13.6 (12.5-18.0) g/dL Hct 41.1 L (42-50) % MCV 79.2 (78-100) fL MCH 26.2 (26-32) pg MCHC 33.1 (32-36) g/dL RDW 12.6 (11.5-14.0) % Plt Count 323 (150-450) x10^3/uL MPV 10.1 (7.5-11.0) fL Gran % 89.3 H (36.0-66.0) % Immature Gran % (Auto) 1.7 H (0.00-0.4) % Nucleat RBC Rel Count 0.0 (0.00-0.1) % Eos # (Auto) 0.05 (0-0.5) x10^3/uL Immature Gran # (Auto) 0.29 H (0.00-0.03) x10^3u/L Absolute Lymphs (auto) 0.57 L (1.0-4.6) x10^3/uL Absolute Monos (auto) 0.88 (0.0-1.3) x10^3/uL Absolute Nucleated RBC 0.00 (0.00-0.01) x10^3u/L Lymphocytes % 3.3 L (24.0-44.0) % Monocytes % 5.1 (0.0-12.0) % Eosinophils % 0.3 (0.00-5.0) % Basophils % 0.3 (0.0-0.4) % Absolute Granulocytes 15.46 H (1.4-6.9) x10^3/uL Basophils # 0.05 (0-0.4) x10^3/uL Sodium (137-145) mmol/L Potassium (3.5-5.1) mmol/L Chloride (98-107) mmol/L Carbon Dioxide (22-30) mmol/L Anion Gap (5-15) MEQ/L BUN (9-20) mg/dL Creatinine (0.66-1.25) mg/dL Estimated GFR ML/MIN Glucose (74-106) mg/dL POC Glucometer TNP 335 H (74 to 106) mg/dL Hemoglobin A1c (4.5-6.0) % Calcium (8.4-10.2) mg/dL Total Bilirubin (0.2-1.3) mg/dL AST (17-59) U/L ALT (0-50) U/L Alkaline Phosphatase (38-126) U/L Serum Total Protein (6.3-8.2) g/dL Albumin (3.5-5.0) g/dL 05/31/22 05/31/22 Range/Units 05:35 07:37 WBC (4.0-10.5) x10^3/uL RBC (4.1-5.6) x10^6/uL Hgb (12.5-18.0) g/dL Hct (42-50) % MCV (78-100) fL MCH (26-32) pg MCHC (32-36) g/dL RDW (11.5-14.0) % Plt Count (150-450) x10^3/uL MPV (7.5-11.0) fL Gran % (36.0-66.0) % Immature Gran % (Auto) (0.00-0.4) % Nucleat RBC Rel Count (0.00-0.1) % Eos # (Auto) (0-0.5) x10^3/uL Immature Gran # (Auto) (0.00-0.03) x10^3u/L Absolute Lymphs (auto) (1.0-4.6) x10^3/uL Absolute Monos (auto) (0.0-1.3) x10^3/uL Absolute Nucleated RBC (0.00-0.01) x10^3u/L Lymphocytes % (24.0-44.0) % Monocytes % (0.0-12.0) % Eosinophils % (0.00-5.0) % Basophils % (0.0-0.4) % Absolute Granulocytes (1.4-6.9) x10^3/uL Basophils # (0-0.4) x10^3/uL Sodium 133 L (137-145) mmol/L Potassium 3.0 L* (3.5-5.1) mmol/L Chloride 99 (98-107) mmol/L Carbon Dioxide 28 (22-30) mmol/L Anion Gap 8.2 (5-15) MEQ/L BUN 10 (9-20) mg/dL Creatinine 0.44 L (0.66-1.25) mg/dL Estimated GFR > 60.0 ML/MIN Glucose 279 H (74-106) mg/dL POC Glucometer 256 H (74 to 106) mg/dL Hemoglobin A1c (4.5-6.0) % Calcium 7.8 L (8.4-10.2) mg/dL Total Bilirubin 0.30 (0.2-1.3) mg/dL AST 13 L (17-59) U/L ALT 9 (0-50) U/L Alkaline Phosphatase 119 (38-126) U/L Serum Total Protein 6.0 L (6.3-8.2) g/dL Albumin 2.7 L (3.5-5.0) g/dL Radiology Exams: Radiology Procedures Category Date Time Status ABDOMEN AND PELVIS W/0 CONTRAS [CT] Stat Exams 05/29/22 22:[address]/ABDOMEN AND PELVIS W/0 CONTRAS Indication: Nausea, vomiting, diarrhea, weakness, and fever. Multiple contiguous axial images obtained through the abdomen and pelvis without contrast. Comparison: None Lung bases clear. Heart not enlarged. Noncontrasted stomach and bowel loops appear nonobstructed with normal appendix. Radiopacities in the distal small bowel and right hemicolon presumed ingested medication/bismuth versus barium. A few bilateral renal calculi, largest right lower pole measuring 2.4 cm. No hydronephrosis or hydroureter. Diffuse fatty liver and subcentimeter gallstone. No free fluid/air. Remaining liver, pancreas, pancreas, spleen, adrenal glands, kidneys, ureters, and bladder are unremarkable for noncontrast exam. Minimal aortoiliac calcifications without AAA. Osseous structures intact with mild degenerative changes of the visualized thoracic spine. Impression: 1. Nonobstructing bilateral renal calculi, small gallstone, diffuse fatty liver, and chronic bony findings. 2. Remaining CT abdomen/pelvis without contrast exam is negative. Assessment/Plan (1) Uncontrolled diabetes mellitus Current Visit: Yes Status: Acute Qualifiers: Diabetes mellitus type: type 2 Glycemic state: with hyperglycemia Qualified Code(s): E11.65 - Type 2 diabetes mellitus with hyperglycemia Assessment & Plan: Chief Complaint Diagnosis Hyperglycemia Allergies Allergy/AdvReac Type Severity Reaction Status Date / Time Penicillins Allergy Verified 01/26/19 02:07 Sulfa (Sulfonamide Allergy Verified 05/29/22 22:21 Antibiotics) Vital Signs (Last 24 hours) Temp Pulse Resp BP Pulse Ox 05/31/22 07:09 98.4 F 83 16 109/51 95 05/31/22 04:00 97.8 F 80 12 114/57 96 05/31/22 00:00 85 05/30/22 19:50 98.2 F 81 19 136/63 100 05/30/22 16:40 98.7 F 89 21 133/63 99 05/30/22 16:00 98.2 F 72 21 122/60 98 05/30/22 12:00 98.2 F 72 21 122/60 98 Home Medications Medication Instructions Recorded Confirmed Last Taken Type No Reportable Medications [No 05/30/22 05/30/22 Unknown History Reported Medications] Current Medications Generic Name Dose Route Start Last Admin Trade Name Freq PRN Reason Stop Dose Admin Acetaminophen 650 mg 05/30/22 02:14 Acetaminophen 325 Mg Tablet PO 06/29/22 02:13 Q4H PRN PRN PAIN AND/OR FEVER Diphenoxylate HCl/Atropine 2 tablet 05/30/22 20:29 05/30/22 20:32 Diphenoxylate Hcl/Atropine 1 Tablet PO 06/29/22 20:28 2 tablet QID PRN PRN Administration DIARRHEA Potassium Chloride/Sodium Chloride 1,000 mls @ 100 mls/hr 05/30/22 02:14 05/31/22 05:59 Sodium Chloride 0.9% W/ 20 Meq Kcl/Liter IV 06/29/22 02:13 100 mls/hr .Q10H GERRI Administration Meropenem 1 gm/ Sodium 100 mls @ 200 mls/hr 05/30/22 14:00 05/31/22 06:00 Chloride IV 06/02/22 13:59 200 mls/hr Q8HT GERRI Administration Insulin Glargine 50 unit 05/30/22 22:00 05/30/22 21:33 Insulin Glargine 1 Unit SQ 06/29/22 21:59 50 unit HS GERRI Administration Insulin Human Lispro 0 unit 05/30/22 12:11 05/31/22 08:31 Insulin Lispro 1 Unit SQ 06/29/22 12:10 10 unit UD PRN Administration HYPERGLYCEMIA Metformin HCl 1,000 mg 05/30/22 18:00 05/30/22 17:56 Metformin Hcl Er 500 Mg Tab PO 06/29/22 17:59 1,000 mg EVENING MEAL GERRI Administration Morphine Sulfate 2 mg 05/30/22 02:14 Morphine Sulfate 2 Mg/Ml Inj IV 06/04/22 02:13 Q4H PRN PRN PAIN Ondansetron HCl 4 mg 05/30/22 02:14 05/30/22 21:34 Ondansetron Hcl 4 Mg/2 Ml Vial IV 06/29/22 02:13 4 mg Q6H PRN PRN Administration NAUSEA/VOMITING Pantoprazole Sodium 40 mg 05/30/22 10:00 05/30/22 09:18 Pantoprazole 40 Mg Vial IV 06/29/22 09:59 40 mg Q24H10 GERRI Administration Discontinued Medications Generic Name Dose Route Start Last Admin Trade Name Freq PRN Reason Stop Dose Admin Albuterol/Ipratropium 3 ml 05/30/22 02:14 Ipratropium/Albuterol Sulfate 3 Ml Ampul.Neb IH 06/29/22 02:13 Q6HRT GERRI Sodium Chloride 1,000 mls @ 999 mls/hr 05/29/22 23:37 05/29/22 23:44 Sodium Chloride 0.9% 1000 Ml IV 05/30/22 00:37 999 mls/hr .Q1H1M STA Administration Sodium Chloride Confirm 05/29/22 23:44 Sodium Chloride 0.9% 1000 Ml Administered 05/29/22 23:45 Dose 1,000 mls @ ud .ROUTE .STK-MED ONE Levofloxacin/Dextrose 750 mg in 150 mls @ 100 mls/hr 05/29/22 23:46 05/29/22 23:56 Levofloxacin 750mg/150ml D5w IV 05/30/22 01:15 100 ml/hr STAT STA 100 mls/hr Administration Levofloxacin/Dextrose Confirm 05/29/22 23:54 Levofloxacin 750mg/150ml D5w Administered 05/29/22 23:55 Dose 750 mg in 150 mls @ ud IV .STK-MED ONE Levofloxacin/Dextrose 500 mg in 100 mls @ 100 mls/hr 05/30/22 10:00 05/30/22 09:20 Levofloxacin 500mg/100ml D5w IV 06/29/22 09:59 100 mls/hr Q24H10 GERRI Administration Insulin Glargine 50 unit 05/30/22 12:12 05/30/22 13:27 Insulin Glargine 1 Unit SQ 05/30/22 12:13 50 unit ONCE ONE Administration Insulin Human Lispro 0 unit 05/30/22 02:14 05/30/22 09:23 Insulin Lispro 1 Unit SQ 06/29/22 02:13 11 unit UD PRN Administration HYPERGLYCEMIA Non-Formulary Medication 1 each 05/30/22 12:08 Pharmacy Dosing Request MC 05/30/22 12:09 STAT ONE Ondansetron HCl 4 mg 05/29/22 22:18 05/29/22 22:30 Ondansetron Hcl 4 Mg/2 Ml Vial IV 05/29/22 22:19 4 mg STAT ONE Administration Ondansetron HCl Confirm 05/29/22 22:29 Ondansetron Hcl 4 Mg/2 Ml Vial Administered 05/29/22 22:30 Dose 4 mg .ROUTE .STK-MED ONE Intake & Output (Last 24 hours) 05/28/22 05/29/22 05/30/22 05/31/22 11:59 11:59 11:59 11:59 Intake Total 240 3882 Balance 240 3882 Weight 95.3 kg Microbiology Results (Last 24 hours) 05/29/22 22:38 Blood Blood Culture Gram Stain - Pending 05/29/22 22:38 Blood Blood Culture - Preliminary NO GROWTH TO DATE 05/29/22 22:38 Blood Blood Culture Gram Stain - Pending 05/29/22 22:38 Blood Blood Culture - Preliminary NO GROWTH TO DATE 05/29/22 23:02 Clean Catch Midstream Urine Culture - Final <10K NORMAL SKIN DESTINY PROBABLE SKIN CONTAMINANT Laboratory Results (Last 24 hours) 05/31/22 05/31/22 05/31/22 07:37 05:35 05:35 WBC 17.3 H RBC 5.19 Hgb 13.6 Hct 41.1 L MCV 79.2 MCH 26.2 MCHC 33.1 RDW 12.6 Plt Count 323 MPV 10.1 Gran % 89.3 H Immature Gran % (Auto) 1.7 H Nucleat RBC Rel Count 0.0 Eos # (Auto) 0.05 Immature Gran # (Auto) 0.29 H Absolute Lymphs (auto) 0.57 L Absolute Monos (auto) 0.88 Absolute Nucleated RBC 0.00 Lymphocytes % 3.3 L Monocytes % 5.1 Eosinophils % 0.3 Basophils % 0.3 Absolute Granulocytes 15.46 H Basophils # 0.05 Sodium 133 L Potassium 3.0 L* Chloride 99 Carbon Dioxide 28 Anion Gap 8.2 BUN 10 Creatinine 0.44 L Estimated GFR > 60.0 Glucose 279 H POC Glucometer 256 H Hemoglobin A1c Calcium 7.8 L Total Bilirubin 0.30 AST 13 L ALT 9 Alkaline Phosphatase 119 Serum Total Protein 6.0 L Albumin 2.7 L 05/30/22 05/30/22 05/30/22 20:45 17:49 16:24 WBC RBC Hgb Hct MCV MCH MCHC RDW Plt Count MPV Gran % Immature Gran % (Auto) Nucleat RBC Rel Count Eos # (Auto) Immature Gran # (Auto) Absolute Lymphs (auto) Absolute Monos (auto) Absolute Nucleated RBC Lymphocytes % Monocytes % Eosinophils % Basophils % Absolute Granulocytes Basophils # Sodium Potassium Chloride Carbon Dioxide Anion Gap BUN Creatinine Estimated GFR Glucose POC Glucometer 335 H TNP 321 H Hemoglobin A1c Calcium Total Bilirubin AST ALT Alkaline Phosphatase Serum Total Protein Albumin 05/30/22 05/30/22 11:26 10:33 WBC RBC Hgb Hct MCV MCH MCHC RDW Plt Count MPV Gran % Immature Gran % (Auto) Nucleat RBC Rel Count Eos # (Auto) Immature Gran # (Auto) Absolute Lymphs (auto) Absolute Monos (auto) Absolute Nucleated RBC Lymphocytes % Monocytes % Eosinophils % Basophils % Absolute Granulocytes Basophils # Sodium Potassium Chloride Carbon Dioxide Anion Gap BUN Creatinine Estimated GFR Glucose POC Glucometer 370 H Hemoglobin A1c > 14.00 H Calcium Total Bilirubin AST ALT Alkaline Phosphatase Serum Total Protein Albumin Orders (Last 24 hours) Category Date Time Status CBC W DIFF AM.LAB Lab 05/31/22 05:35 Completed CMP AM.LAB Lab 05/31/22 05:35 Completed HEMOGLOBIN A1C Urgent Lab 05/30/22 10:33 Completed POCT GLUCOSE Stat Lab 05/30/22 11:26 Completed POCT GLUCOSE Stat Lab 05/30/22 16:24 Completed POCT GLUCOSE Stat Lab 05/30/22 17:49 Completed POCT GLUCOSE Stat Lab 05/30/22 20:45 Completed POCT GLUCOSE Stat Lab 05/31/22 07:37 Completed Diphenoxylate HCl/Atropine [Lomotil] Med 05/30/22 20:29 Active 2 tablet PO QID PRN PRN Insulin Glargine [Lantus Insulin] Med 05/30/22 22:00 Active 50 unit SQ HS Insulin Glargine [Lantus Insulin] Med 05/30/22 12:12 Discontinued 50 unit SQ ONCE ONE Insulin Lispro [Humalog] Med 05/30/22 12:11 Active See Dose Instructions SQ UD PRN Levofloxacin [Levofloxacin 500MG/100ML D5W] Med 05/30/22 10:00 Discontinued 500 mg in 100 ml IV Q24H10 Meropenem [Merrem] 1 gm Med 05/30/22 14:00 Active NaCl 0.9% 100 ml Mini-Bag Plus [Sodium Chloride 100ML MINI-BAG PLUS] 100 ml IV Q8HT Metformin HCl Xr 500 mg [Glucophage XR 500 MG] Med 05/30/22 18:00 Active 1,000 mg PO EVENING MEAL Pantoprazole 40 mg [Protonix 40 mg IV] Med 05/30/22 10:00 Active 40 mg IV Q24H10 Pharmacy Dosing Request Med 05/30/22 12:08 Discontinued 1 each STAT ONE Patient Care Notes (Last 24 hours) 05/30/22 18:51 Nursing Note by Azucena Christie patient legs unwrapped at this time. wiped them down, applied barrier cream and non adherent pads, kerlix and tubigrip. Pictures in chart states he had been bitten by a brown recluse 9 years ago and has been receiving wound care ever since. His wound care is done by a clinic that is a [address] Patient is interested in coming to the [facility] wound clinic. Spoke with patient about our podiatry services and patient is also interested in looking into seeing Dr. Schneider. I also spoke with family and they would like for discharge planning to see if patient is eligible for home health when he goes home, as well as any assistance for prescription costs and an alternative insurance to what he currently has. Patient also states that at this time he has stairs that are unsafe to enter into his residence Initialized on 05/30/22 18:51 - END OF NOTE 05/30/22 17:20 Nursing Note by Azucena Christie attempted to return call to patient family member, Caren,and she did not answer. Initialized on 05/30/22 17:20 - END OF NOTE Code(s): [id number] - (2) Acute UTI Current Visit: Yes Status: Resolved Code(s): N39.0 - URINARY TRACT INFECTION, SITE NOT SPECIFIED (3) Gall stone Current Visit: Yes Status: Chronic Qualifiers: Cholecystitis presence: without cholecystitis Code(s): K80.20 - CALCULUS OF GALLBLADDER W/O CHOLECYSTITIS W/O OBSTRUCTION (4) Renal stones Current Visit: Yes Status: Chronic
[2022-05-31] MEDS: Lomotil PO PRN ×3 (09:48→23:11)
[2022-05-31] MEDS: PROTONIX 40 MG IV IV SCH (09:48)
[2022-05-31 15:29] LABS: Slide Review 1 YES
[2022-05-31] MEDS: Glucophage XR 500 MG PO SCH (17:33)
[2022-05-31] MEDS: Lantus Insulin SQ SCH (22:10)
[2022-06-01] MEDS: Sodium Chloride 0.9% W/ 20 mEq KCl/LITER 1,000 ML IV SCH ×2 (01:34→14:01)
[2022-06-01] MEDS: Merrem 1 GM in Sodium Chloride 100ML MINI-BAG PLUS 100 ML IV SCH ×3 (05:23→21:59)
[2022-06-01 06:08] LABS: Hematocrit 39.7 % (42-50); Hemoglobin 12.6 g/dL (12.5-18.0); Mean Corpuscular Hgb Concent. 31.7 g/dL (32-36); Mean Platelet Volume 10.5 fL (7.5-11.0); Platelet Count 276 x10^3/uL (150-450); Red Blood Count 4.84 x10^6/uL (4.1-5.6); White Blood Count 14.8 x10^3/uL (4.0-10.5)
[2022-06-01 06:16] LABS: ALBUMIN 2.4 g/dL (3.5-5.0); ALKALINE PHOSPHATASE 111 U/L (38-126); ANION GAP 6.3 MEQ/L (5-15); BLOOD UREA NITROGEN 11 mg/dL (9-20); CHLORIDE 104 mmol/L (98-107); Carbon Dioxide 29 mmol/L (22-30); EST GLOMERULAR FILTRATION RATE > 60.0 ML/MIN; Glucose 270 mg/dL (74-106); SGOT/AST 13 U/L (17-59); SGPT/ALT 9 U/L (0-50); SODIUM 136 mmol/L (137-145); Total Protein 5.3 g/dL (6.3-8.2)
[2022-06-01] MEDS: Lomotil PO PRN ×2 (06:24→18:33)
[2022-06-01] MEDS: PROTONIX 40 MG IV IV SCH (09:10)
[2022-06-01] MEDS: HUMALOG SQ PRN ×4 (09:12→22:00)
--- NOTE | 2022-06-01 09:32 | PCM.NOTE ---
Date and Time: 06/01/22931 Subjective Assessment: doing better - Review of Systems Constitutional: No Fever, No Chills Eyes: No Symptoms Ears, Nose, & Throat: No Symptoms Respiratory: No Cough, No Short Of Breath Cardiac: No Chest Pain, No Edema, No Syncope Abdominal/Gastrointestinal: No Abdominal Pain, No Nausea, No Vomiting, No Diarrhea Genitourinary Symptoms: No Dysuria Musculoskeletal: No Back Pain, No Neck Pain Skin: No Rash Neurological: No Dizziness, No Focal Weakness, No Sensory Changes Psychological: No Symptoms Endocrine: No Symptoms Hematologic/Lymphatic: No Symptoms Immunological/Allergic: No Symptoms Objective Exam General Appearance: no apparent distress, alert Neurologic Exam: alert, oriented x 3, cooperative, normal mood/affect, nml cerebellar function, sensation nml, No motor deficits Skin Exam: normal color, warm, dry Eye Exam: PERRL, EOMI, eyes nml inspection Ears, Nose, Throat Exam: normal ENT inspection, pharynx normal, moist mucous membranes Neck Exam: normal inspection, non-tender, supple, full range of motion Respiratory Exam: normal breath sounds, lungs clear, No respiratory distress Cardiovascular Exam: regular rate/rhythm, normal heart sounds Gastrointestinal/Abdomen Exam: soft, No tenderness, No mass Extremity Exam: normal inspection, normal range of motion, inflammation, swelli ng, tenderness Back Exam: normal inspection, normal range of motion, No CVA tenderness, No vertebral tenderness Male Genitalia Exam: deferred Rectal Exam: deferred OBJECTIVE DATA Vital Signs: Vital Signs - 24 hr Temp Pulse Resp BP Pulse Ox 06/01/22 07:41 97.7 F 79 18 116/58 97 06/01/22 04:00 97.7 F 75 18 114/57 98 05/31/22 23:49 97.7 F 85 19 113/58 100 05/31/22 19:52 98.4 F 82 18 100/58 99 05/31/22 16:00 97.8 F 77 16 121/59 96 05/31/22 11:51 98.1 F 83 16 111/50 97 Pain Assessment - Last Documented Pain Intensity 0 Intake and Output: Intake & Output 05/29/22 05/30/22 05/31/22 06/01/22 11:59 11:59 11:59 11:59 Intake Total 240 4162 2437 Output Total 400 Balance 240 4162 2037 Weight 95.3 kg Lab Results: Lab Results-Last 24 Hours 05/31/22 05/31/22 05/31/22 Range/Units 05:35 11:17 16:32 Sodium (137-145) mmol/L Potassium (3.5-5.1) mmol/L Chloride (98-107) mmol/L Carbon Dioxide (22-30) mmol/L Anion Gap (5-15) MEQ/L BUN (9-20) mg/dL Creatinine (0.66-1.25) mg/dL Estimated GFR ML/MIN Glucose (74-106) mg/dL POC Glucometer 226 H 274 H (74 to 106) mg/dL Calcium (8.4-10.2) mg/dL Total Bilirubin (0.2-1.3) mg/dL AST (17-59) U/L ALT (0-50) U/L Alkaline Phosphatase (38-126) U/L Serum Total Protein (6.3-8.2) g/dL Albumin (3.5-5.0) g/dL Slides for Path Review YES 05/31/22 06/01/22 06/01/22 Range/Units 20:32 05:18 07:00 Sodium 136 L (137-145) mmol/L Potassium 4.0 D (3.5-5.1) mmol/L Chloride 104 (98-107) mmol/L Carbon Dioxide 29 (22-30) mmol/L Anion Gap 6.3 (5-15) MEQ/L BUN 11 (9-20) mg/dL Creatinine 0.40 L (0.66-1.25) mg/dL Estimated GFR > 60.0 ML/MIN Glucose 270 H (74-106) mg/dL POC Glucometer 304 H 264 H (74 to 106) mg/dL Calcium 7.0 L (8.4-10.2) mg/dL Total Bilirubin 0.10 L (0.2-1.3) mg/dL AST 13 L (17-59) U/L ALT 9 (0-50) U/L Alkaline Phosphatase 111 (38-126) U/L Serum Total Protein 5.3 L (6.3-8.2) g/dL Albumin 2.4 L (3.5-5.0) g/dL Slides for Path Review Assessment/Plan (1) Uncontrolled diabetes mellitus Current Visit: Yes Status: Acute Qualifiers: Diabetes mellitus type: type 2 Glycemic state: with hyperglycemia Qualified Code(s): E11.65 - Type 2 diabetes mellitus with hyperglycemia Code(s): [id number] - (2) Acute UTI Current Visit: Yes Status: Resolved Code(s): N39.0 - URINARY TRACT INFECTION, SITE NOT SPECIFIED (3) Gall stone Current Visit: Yes Status: Chronic Qualifiers: Cholecystitis presence: without cholecystitis Code(s): K80.20 - CALCULUS OF GALLBLADDER W/O CHOLECYSTITIS W/O OBSTRUCTION (4) Renal stones Current Visit: Yes Status: Chronic
[2022-06-01] MEDS: Glucophage XR 500 MG PO SCH (17:18)
[2022-06-01] MEDS: Lantus Insulin SQ SCH (21:59)
[2022-06-02] MEDS: Lomotil PO PRN ×3 (03:36→21:29)
[2022-06-02] MEDS: Merrem 1 GM in Sodium Chloride 100ML MINI-BAG PLUS 100 ML IV SCH ×3 (05:10→21:22)
[2022-06-02 05:41] LABS: Hematocrit 42.2 % (42-50); Hemoglobin 13.6 g/dL (12.5-18.0); Mean Cell Volume 79.5 fL (78-100); Mean Corpuscular Hemoglobin 25.6 pg (26-32); Mean Corpuscular Hgb Concent. 32.2 g/dL (32-36); Mean Platelet Volume 9.9 fL (7.5-11.0); Platelet Count 354 x10^3/uL (150-450); Red Blood Count 5.31 x10^6/uL (4.1-5.6); Red Cell Distribution Width 13.2 % (11.5-14.0); White Blood Count 16.8 x10^3/uL (4.0-10.5)
[2022-06-02 06:05] LABS: ALBUMIN 2.7 g/dL (3.5-5.0); ALKALINE PHOSPHATASE 131 U/L (38-126); ANION GAP 6.1 MEQ/L (5-15); BLOOD UREA NITROGEN 8 mg/dL (9-20); CHLORIDE 99 mmol/L (98-107); Calcium 7.7 mg/dL (8.4-10.2); Carbon Dioxide 32 mmol/L (22-30); EST GLOMERULAR FILTRATION RATE > 60.0 ML/MIN; Glucose 153 mg/dL (74-106); SGOT/AST 18 U/L (17-59); SGPT/ALT 11 U/L (0-50); SODIUM 134 mmol/L (137-145)
[2022-06-02 06:23] LABS: Potassium 2.9 mmol/L (3.5-5.1)
[2022-06-02] MEDS ORDERED: Klor Con PO ONE ×2 (06:43→06:49)
[2022-06-02] MEDS: PROTONIX 40 MG IV IV SCH (10:00)
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
[2022-06-02] MEDS: Sodium Chloride 0.9% W/ 20 mEq KCl/LITER 1,000 ML IV SCH (13:35)
[2022-06-02] MEDS: HUMALOG SQ PRN ×3 (13:36→22:10)
[2022-06-02] MEDS: TYLENOL 325 MG PO PRN (15:33)
--- NOTE | 2022-06-02 16:31 | XRAY ---
Indication: Bilateral calf pain. Two-dimensional sonogram and color Doppler imaging of the major venous vessels of the left and right leg performed. Comparison: None No thrombus seen in the examined deep venous vessels of the left and right leg including greater saphenous vein. Veins demonstrate normal compressibility. Venous waveforms are normal with and without augmentation. Impression: Left and right leg negative for DVT.
--- NOTE | 2022-06-02 16:50 | PCM.CONS ---
Podiatry HPI - Consult Date of Consultation Date: 06/02/22 Reason for Consult: Venous insufficency ulceration, onychomycosis Consulting Provider: IMTIAZ LOMBARDO DPM - [facility] History of Present Illness: [facility] Jeff is a very pleasant 57-year-old male with an extensive medical history of venous insufficiency ulcerations uncontrolled diabetes peripheral neuropathy onychomycosis congestive heart f ailure Hypertension hyperlipidemia and obesity. Patient presented for an episode of hyperglycemia on May 30, 2022 to the emergency department with diarrhea loose stool nausea generalized abdominal pain and a recent history of an acute UTI patient does have an elevated white blood cell count and a hemoglobin A1c measuring more than 14.Consult was placed for venous insufficiency ulceration to the bilateral lower extremity as well as onychomycosis to the bilateral lower extremity. Patient denies any other pedal complaints at this time Medications & Allergies Home Medications: Home Medication List No Reportable Medications [No Reported Medications] 05/30/22 [History Confirmed 05/30/22] Allergies/Adverse Reactions: Allergies Allergy/AdvReac Type Severity Reaction Status Date / Time Penicillins Allergy Verified 01/26/19 02:07 Sulfa (Sulfonamide Allergy Verified 05/29/22 22:21 Antibiotics) - Past Medical History Past Medical History: Yes Neurological History: No Pertinent History ENT History: No Pertinent History Cardiac History: No Pertinent History Respiratory History: No Pertinent History Endocrine Medical History: Diabetes Type II Musculoskelatal History: Arthritis GI Medical History: No Pertinent History History: No Pertinent History Pyscho-Social History: No Pertinent History Male Reproductive Disorders: No Pertinent History - Past Surgical History Past Surgical History: No Neuro Surgical History: No Pertinent History Cardiac History: No Pertinent History Respiratory Surgery: No Pertinent History GI Surgical History: No Pertinent History Genitourinary Surgical Hx: No Pertinent History Musculskeletal Surgical Hx: No Pertinent History Male Surgical History: No Pertinent History - Social History Smoking Status: Never smoker Exposure to second hand smoke: No Alcohol: None Drug Use: none Physical Exam - General General Appearance: no apparent distress - Neuro Neurologic: Epicritic and protopathic - Vascular Peripheral Pulses: Posterior tibialis: 2+, Dorsalis-Pedis: 0 Capillary Refill Time: < 3 seconds Hair Growth: Symmetrical and Bilateral Varicosities: Positive Edema: Pitting Edema Degree: 1+ Skin: Supple, not atrophic Skin Temperature: Warm to touch - Muscular Foot Type: pes planu Muscle Strength: 5/5 on all 4 quadrants - Narrative Narrative Physical Exam: Podiatry Physical Exam Results - Labs Lab/Micro Results: Lab Results-Last 24 Hours 06/01/22 06/02/22 06/02/22 Range/Units 21:40 05:40 05:40 WBC 16.8 H (4.0-10.5) x10^3/uL RBC 5.31 (4.1-5.6) x10^6/uL Hgb 13.6 (12.5-18.0) g/dL Hct 42.2 (42-50) % MCV 79.5 (78-100) fL MCH 25.6 L (26-32) pg MCHC 32.2 (32-36) g/dL RDW 13.2 (11.5-14.0) % Plt Count 354 (150-450) x10^3/uL MPV 9.9 (7.5-11.0) fL Sodium 134 L (137-145) mmol/L Potassium 2.9 L* D (3.5-5.1) mmol/L Chloride 99 (98-107) mmol/L Carbon Dioxide 32 H (22-30) mmol/L Anion Gap 6.1 (5-15) MEQ/L BUN 8 L (9-20) mg/dL Creatinine 0.40 L (0.66-1.25) mg/dL Estimated GFR > 60.0 ML/MIN Glucose 153 H (74-106) mg/dL POC Glucometer 333 H (74 to 106) mg/dL Calcium 7.7 L (8.4-10.2) mg/dL Total Bilirubin 0.20 (0.2-1.3) mg/dL AST 18 (17-59) U/L ALT 11 (0-50) U/L Alkaline Phosphatase 131 H (38-126) U/L Serum Total Protein 6.0 L (6.3-8.2) g/dL Albumin 2.7 L (3.5-5.0) g/dL 06/02/22 06/02/22 06/02/22 Range/Units 07:23 11:33 16:18 WBC (4.0-10.5) x10^3/uL RBC (4.1-5.6) x10^6/uL Hgb (12.5-18.0) g/dL Hct (42-50) % MCV (78-100) fL MCH (26-32) pg MCHC (32-36) g/dL RDW (11.5-14.0) % Plt Count (150-450) x10^3/uL MPV (7.5-11.0) fL Sodium (137-145) mmol/L Potassium (3.5-5.1) mmol/L Chloride (98-107) mmol/L Carbon Dioxide (22-30) mmol/L Anion Gap (5-15) MEQ/L BUN (9-20) mg/dL Creatinine (0.66-1.25) mg/dL Estimated GFR ML/MIN Glucose (74-106) mg/dL POC Glucometer 147 H 307 H 305 H (74 to 106) mg/dL Calcium (8.4-10.2) mg/dL Total Bilirubin (0.2-1.3) mg/dL AST (17-59) U/L ALT (0-50) U/L Alkaline Phosphatase (38-126) U/L Serum Total Protein (6.3-8.2) g/dL Albumin (3.5-5.0) g/dL Microbiology 05/29/22 22:38 Blood Culture - Preliminary Blood NO GROWTH TO DATE 05/29/22 22:38 Blood Culture - Preliminary Blood NO GROWTH TO DATE 05/29/22 23:02 Urine Culture - Final Clean Catch Midstream <10K NORMAL SKIN DESTINY PROBABLE SKIN CONTAMINANT Accuchecks Date 06/02/22 Date 06/02/22 Date 06/01/22 Time 16:24 Time 07:34 - Radiology Impressions Radiology Exams & Impressions: Radiology Procedures Category Date Time Status VENOUS BILATERAL EXTREMITY [US] Urgent Exams 06/02/22 16:20 Completed Assessment/Plan (1) Ulcer of extremity due to chronic venous insufficiency Current Visit: Yes Status: Acute Assessment & Plan: Initial patient examination evaluation. Venous Doppler obtained demonstrating negative for deep vein thrombosis. Patient does have palpable pulses at this time and 1+ pitting edema however this is severe and chronic at this time with venous insufficiency ulceration and serous fluid drainage. Patient is at a high risk for cellulitis contracture and therefore Unna boot compression was applied to the bilateral lower extremity with moderate compression. Nail care provided to digits 1 through 5 on the right and 1 through 5 on the left to the patient's satisfaction without incident. Compression to stay on for 2 days and will reassess on and reapply if necessary. Thank you for the consult we will follow closely while inpatient Code(s): L98.499 - NON-PRESSURE CHRONIC ULCER OF SKIN OF SITES W UNSP SEVERITY; I87.2 - VENOUS INSUFFICIENCY (CHRONIC) (PERIPHERAL) (2) Onychomycosis Current Visit: Yes Status: Acute Code(s): B35.1 - TINEA UNGUIUM (3) Hyperglycemia Current Visit: Yes Status: Acute Code(s): R73.9 - HYPERGLYCEMIA, UNSPECIFIED (4) Multiple wounds of skin Current Visit: Yes Status: Acute Code(s): T14.8XXA - OTHER INJURY OF UNSPECIFIED BODY REGION, INITIAL ENCOUNTER (5) Sepsis Current Visit: Yes Status: Acute (6) Uncontrolled diabetes mellitus Current Visit: Yes Status: Acute Qualifiers: Diabetes mellitus type: type 2 Glycemic state: with hyperglycemia Qualified Code(s): E11.65 - Type 2 diabetes mellitus with hyperglycemia Code(s): [id number] - (7) Acute UTI Current Visit: Yes Status: Resolved Code(s): N39.0 - URINARY TRACT INFECTION, SITE NOT SPECIFIED
[2022-06-02] MEDS: Glucophage XR 500 MG PO SCH (17:55)
[2022-06-02] MEDS: Lantus Insulin SQ SCH (22:10)
[2022-06-03 05:13] LABS: Hematocrit 40.9 % (42-50); Hemoglobin 13.2 g/dL (12.5-18.0); Mean Cell Volume 80.8 fL (78-100); Mean Corpuscular Hemoglobin 26.1 pg (26-32); Mean Corpuscular Hgb Concent. 32.3 g/dL (32-36); Mean Platelet Volume 10.3 fL (7.5-11.0); Platelet Count 345 x10^3/uL (150-450); Red Blood Count 5.06 x10^6/uL (4.1-5.6); Red Cell Distribution Width 13.4 % (11.5-14.0); White Blood Count 12.2 x10^3/uL (4.0-10.5)
[2022-06-03] MEDS: Merrem 1 GM in Sodium Chloride 100ML MINI-BAG PLUS 100 ML IV SCH ×3 (05:24→21:28)
[2022-06-03] MEDS: Lomotil PO PRN ×3 (05:30→19:36)
[2022-06-03 05:36] LABS: ALBUMIN 2.5 g/dL (3.5-5.0); ALKALINE PHOSPHATASE 114 U/L (38-126); ANION GAP 6.2 MEQ/L (5-15); BLOOD UREA NITROGEN 7 mg/dL (9-20); CHLORIDE 102 mmol/L (98-107); Calcium 7.4 mg/dL (8.4-10.2); Carbon Dioxide 32 mmol/L (22-30); Creatinine 1 0.37 mg/dL (0.66-1.25); EST GLOMERULAR FILTRATION RATE > 60.0 ML/MIN; Glucose 151 mg/dL (74-106); Potassium 3.4 mmol/L (3.5-5.1); SGOT/AST 16 U/L (17-59); SGPT/ALT 11 U/L (0-50); SODIUM 136 mmol/L (137-145); Total Protein 5.7 g/dL (6.3-8.2)
--- NOTE | 2022-06-03 08:05 | CONS ---
HISTORY: Jeff Taylor is a very productive individual. He works at the [employer]. He somehow has worked the [employer] for 18 years. He wears a vest that rubs the back of his neck and his left and right shoulder and upper thoracic spine area. Over the years he has had several boils come up. He is diabetic. He has been diabetic for quite some while. He said they have really gotten the best of him at this time. There are two or three on the lower neck. These are a little fluctuant underneath. There are three or four across the shoulders and there is one a little lower. He is on IV antibiotics. They have improved some. IMPRESSION: 1) The patient has long standing diabetes mellitus. 2) He has multiple subcutaneous abscesses on the upper trunk area mainly posteriorly. There is a little correlation between the thing that he wears at work and these although a normal individual without diabetes would not be expected to be able to do this by wearing this apparatus. Certainly reinforced the need to not continue to do this job and wear this vest at this time. It is also going to be quite tough to get these healed up at this time. It is a little unclear what needs debrided and what needs drained, what is really deep and real, what is a little more superficial. He has been in the hospital four days. Things are not really demarcated but apparently they are starting to get a little better anyway. PLAN: We will follow along. He may very well need debridement here.
--- NOTE | 2022-06-03 09:03 | XRAY ---
Indication: skilled nursing placement. Comparison: January 26, 2019 Portable chest better inflated and clear. Heart not enlarged. Bony thorax intact again with mild osteopenia and degenerative changes. Impression: Nonacute chest.
[2022-06-03] MEDS: Protonix 40MG Tablet PO SCH (10:11)
[2022-06-03] MEDS: Sodium Chloride 0.9% W/ 20 mEq KCl/LITER 1,000 ML IV SCH ×2 (11:59→22:54)
[2022-06-03] MEDS: Glucophage XR 500 MG PO SCH (17:19)
[2022-06-03] MEDS: HUMALOG SQ PRN (17:19)
[2022-06-03] MEDS: TYLENOL 325 MG PO PRN (19:35)
--- NOTE | 2022-06-03 20:46 | PCM.NOTE ---
Date and Time: 06/03/222045 Subjective Assessment: doing ok - Review of Systems Constitutional: No Fever, No Chills Eyes: No Symptoms Ears, Nose, & Throat: No Symptoms Respiratory: No Cough, No Short Of Breath Cardiac: No Chest Pain, No Edema, No Syncope Abdominal/Gastrointestinal: No Abdominal Pain, No Nausea, No Vomiting, No Diarrhea Genitourinary Symptoms: No Dysuria Musculoskeletal: No Back Pain, No Neck Pain Skin: No Rash Neurological: No Dizziness, No Focal Weakness, No Sensory Changes Psychological: No Symptoms Endocrine: No Symptoms Hematologic/Lymphatic: No Symptoms Immunological/Allergic: No Symptoms Objective Exam General Appearance: no apparent distress, alert Neurologic Exam: alert, oriented x 3, cooperative, normal mood/affect, nml cerebellar function, sensation nml, No motor deficits Skin Exam: normal color, warm, dry Eye Exam: PERRL, EOMI, eyes nml inspection Ears, Nose, Throat Exam: normal ENT inspection, pharynx normal, moist mucous membranes Neck Exam: normal inspection, non-tender, supple, full range of motion Respiratory Exam: normal breath sounds, lungs clear, No respiratory distress Cardiovascular Exam: regular rate/rhythm, normal heart sounds Gastrointestinal/Abdomen Exam: soft, No tenderness, No mass Extremity Exam: normal inspection, normal range of motion Back Exam: normal inspection, normal range of motion, No CVA tenderness, No vertebral tenderness Male Genitalia Exam: deferred Rectal Exam: deferred OBJECTIVE DATA Vital Signs: Vital Signs - 24 hr Temp Pulse Resp BP Pulse Ox 06/03/22 20:00 97.7 F 89 18 122/67 99 06/03/22 19:48 82 06/03/22 16:00 98.6 F 82 16 114/68 96 06/03/22 12:00 97.5 F 80 15 103/61 98 06/03/22 08:00 98.9 F 84 17 119/58 96 06/03/22 04:00 98.0 F 69 18 116/57 99 06/02/22 23:55 97.8 F 82 18 111/56 99 Pain Assessment - Last Documented Pain Intensity 4 Pain Scale Used 0-10 Pain Scale Intake and Output: Intake & Output 06/01/22 06/02/22 06/03/22 06/04/22 11:59 11:59 11:59 11:59 Intake Total 2917 1680 3795 400 Output Total 400 Balance 2517 1680 3795 400 Weight 101 kg 101 kg Lab Results: Lab Results-Last 24 Hours 06/02/22 06/03/22 06/03/22 Range/Units 21:38 05:08 05:08 WBC 12.2 H (4.0-10.5) x10^3/uL RBC 5.06 (4.1-5.6) x10^6/uL Hgb 13.2 (12.5-18.0) g/dL Hct 40.9 L (42-50) % MCV 80.8 (78-100) fL MCH 26.1 (26-32) pg MCHC 32.3 (32-36) g/dL RDW 13.4 (11.5-14.0) % Plt Count 345 (150-450) x10^3/uL MPV 10.3 (7.5-11.0) fL Sodium 136 L (137-145) mmol/L Potassium 3.4 L (3.5-5.1) mmol/L Chloride 102 (98-107) mmol/L Carbon Dioxide 32 H (22-30) mmol/L Anion Gap 6.2 (5-15) MEQ/L BUN 7 L (9-20) mg/dL Creatinine 0.37 L (0.66-1.25) mg/dL Estimated GFR > 60.0 ML/MIN Glucose 151 H (74-106) mg/dL POC Glucometer 289 H (74 to 106) mg/dL Calcium 7.4 L (8.4-10.2) mg/dL Total Bilirubin 0.20 (0.2-1.3) mg/dL AST 16 L (17-59) U/L ALT 11 (0-50) U/L Alkaline Phosphatase 114 (38-126) U/L Serum Total Protein 5.7 L (6.3-8.2) g/dL Albumin 2.5 L (3.5-5.0) g/dL 06/03/22 06/03/22 06/03/22 Range/Units 07:19 11:46 16:08 WBC (4.0-10.5) x10^3/uL RBC (4.1-5.6) x10^6/uL Hgb (12.5-18.0) g/dL Hct (42-50) % MCV (78-100) fL MCH (26-32) pg MCHC (32-36) g/dL RDW (11.5-14.0) % Plt Count (150-450) x10^3/uL MPV (7.5-11.0) fL Sodium (137-145) mmol/L Potassium (3.5-5.1) mmol/L Chloride (98-107) mmol/L Carbon Dioxide (22-30) mmol/L Anion Gap (5-15) MEQ/L BUN (9-20) mg/dL Creatinine (0.66-1.25) mg/dL Estimated GFR ML/MIN Glucose (74-106) mg/dL POC Glucometer 119 H 234 H 279 H (74 to 106) mg/dL Calcium (8.4-10.2) mg/dL Total Bilirubin (0.2-1.3) mg/dL AST (17-59) U/L ALT (0-50) U/L Alkaline Phosphatase (38-126) U/L Serum Total Protein (6.3-8.2) g/dL Albumin (3.5-5.0) g/dL Radiology Exams: Radiology Procedures Category Date Time Status CHEST 1 VIEW (PORTABLE) Urgent Exams 06/03/22 08:35 Completed VENOUS BILATERAL EXTREMITY [US] Urgent Exams 06/02/22 16:20 Completed Multi-Disciplinary Progress Notes: Multi-Disciplinary Progress Notes 06/03/22 16:56 Physical Therapy Note by Christa Arenas PATIENT WAS TREATED IN ROOM FOR FUNCTIONAL STRENGTHENING OF LE AND ENDURANCE. NOTED UPON ENTERING ROOM, PT SITTING WITH LE DEPENDENT AND COPIOUS SEROUS DRAINAGE FROM BILATERAL LE SATURATING UNNA BOOT DRESSING AND SOCKS. NOTED TRAIL OF DRAINAGE ON THE FLOOR TO BATHROOM AND RETURNING TO CHAIR. PT REPORTING HE IS AMBULATING INDEPENDENTLY TO BATHROOM WITH WALKER AT CHAIRSIDE. PATIENT PERFORMED LE EXERCISES WITH ACTIVE ROM, ISOLATED MUSCLE ISOMETRICS,TRANSFER AND BALANCE SKILLS WITHIN PATIENT'S ENDURANCE. PT DID FATIGUE RAPIDLY WITH STATIC STANDING RESULTING WITH PATIENT REQUESTING TO RETURNING TO SITTING. PT DID REQUIRE DEMONSTRATIVE AND MUCH ENCOURAGEMENT TO ATTEMPT INITIATING WEIGHT BEARING EXERCISES. Initialized on 06/03/22 16:56 - END OF NOTE 06/03/22 15:40 Case Management Note by Jud Kurtz REPORTS THEY CARE WORKING TO TRY TO GET PATIENT IN TO THEIR FACILITY. PATIENT CURRENTLY HAS A 50% COPAY REQUIRED BY HIS INSURANCE. THEY ARE TALKING TO THEIR BUSINESS OFFICE TO SEE WHAT THEY CAN DO (MEDICAID PENDING) Initialized on 06/03/22 15:40 - END OF NOTE 06/03/22 11:30 (created 06/03/22 13:15) Case Management Note by Jud Kurtz FROM [facility] CAME OVER AND TALKED WITH PATIENT- WILL NOTIFY THEM ON STATUS OF [facility] REFERRAL Initialized on 06/03/22 13:15 - END OF NOTE 06/03/22 08:41 Case Management Note by Jud Kurtz S/W PATIENT ABOUT GOING TO REHAB FOR HELP WITH HIS CARE. PATIENT HAS BRANDAN BOOTS O N AMBAR. LEGS AND WOUNDS ON HIS BACK. PATIENT AGREEABLE. WE DISCUSSED GOING TO [facility] WHERE THEY COULD HELP HIM GET ESTABLISHED WITH MEDICAID. PATIENT AGREEABLE. DURING CONVERSATION PATIENT STATED " IM OPEN TO ANY HELP BECAUSE IM ABOUT TO 'PATIENT MOTIONED TO A GUN TO HIS HEAD'". THIS NURSE REPLIED- " NOW YOUR NOT SERIOUS ARE YOU?". PATIENT REPLIED " OH YES I AM, I LIVE RIGHT NEXT TO THE RAILROAD AND WHEN YOU HIT A END LIKE THIS..." PATIENT REASSURED WE WOULD DO EVERYTHING WE COULD TO HELP HIM. [facility] CONSULT ENTERED. PRIMARY NURSE NOTIFIED Initialized on 06/03/22 08:41 - END OF NOTE Assessment/Plan (1) Multiple wounds of skin Current Visit: Yes Status: Acute Assessment & Plan: Chief Complaint Diagnosis SEPSIS, UTI, MULT WOUNDS Allergies Allergy/AdvReac Type Severity Reaction Status Date / Time Penicillins Allergy Verified 01/26/19 02:07 Sulfa (Sulfonamide Allergy Verified 05/29/22 22:21 Antibiotics) Vital Signs (Last 24 hours) Temp Pulse Resp BP Pulse Ox 06/03/22 20:00 97.7 F 89 18 122/67 99 06/03/22 19:48 82 06/03/22 16:00 98.6 F 82 16 114/68 96 06/03/22 12:00 97.5 F 80 15 103/61 98 06/03/22 08:00 98.9 F 84 17 119/58 96 06/03/22 04:00 98.0 F 69 18 116/57 99 06/02/22 23:55 97.8 F 82 18 111/56 99 Home Medications Medication Instructions Recorded Confirmed Last Taken Type No Reportable Medications [No 05/30/22 05/30/22 Unknown History Reported Medications] Current Medications Generic Name Dose Route Start Last Admin Trade Name Freq PRN Reason Stop Dose Admin Acetaminophen 650 mg 05/30/22 02:14 06/03/22 19:35 Acetaminophen 325 Mg Tablet PO 06/29/22 02:13 650 mg Q4H PRN PRN Administration PAIN AND/OR FEVER Diphenoxylate HCl/Atropine 2 tablet 05/30/22 20:29 06/03/22 19:36 Diphenoxylate Hcl/Atropine 1 Tablet PO 06/29/22 20:28 2 tablet QID PRN PRN Administration DIARRHEA Potassium Chloride/Sodium Chloride 1,000 mls @ 100 mls/hr 05/30/22 02:14 06/03/22 11:59 Sodium Chloride 0.9% W/ 20 Meq Kcl/Liter IV 06/29/22 02:13 100 mls/hr .Q10H GERRI Administration Meropenem 1 gm/ Sodium 100 mls @ 200 mls/hr 05/30/22 14:00 06/03/22 14:48 Chloride IV 06/05/22 13:59 200 mls/hr Q8HT GERRI Administration Insulin Glargine 70 unit 06/01/22 22:00 06/02/22 22:10 Insulin Glargine 1 Unit SQ 07/01/22 21:59 70 unit HS GERRI Administration Insulin Human Lispro 0 unit 05/30/22 12:11 06/03/22 17:19 Insulin Lispro 1 Unit SQ 06/29/22 12:10 10 unit UD PRN Administration HYPERGLYCEMIA Metformin HCl 1,000 mg 05/30/22 18:00 06/03/22 17:19 Metformin Hcl Er 500 Mg Tab PO 06/29/22 17:59 1,000 mg EVENING MEAL GERRI Administration Morphine Sulfate 2 mg 05/30/22 02:14 Morphine Sulfate 2 Mg/Ml Inj IV 06/04/22 02:13 Q4H PRN PRN PAIN Ondansetron HCl 4 mg 05/30/22 02:14 05/30/22 21:34 Ondansetron Hcl 4 Mg/2 Ml Vial IV 06/29/22 02:13 4 mg Q6H PRN PRN Administration NAUSEA/VOMITING Pantoprazole Sodium 40 mg 06/03/22 10:00 06/03/22 10:11 Protonix (Pantoprazole) 40 Mg Tablet PO 07/03/22 09:59 40 mg DAILY GERRI Administration Discontinued Medications Generic Name Dose Route Start Last Admin Trade Name Oleg PRN Reason Stop Dose Admin Albuterol/Ipratropium 3 ml 05/30/22 02:14 Ipratropium/Albuterol Sulfate 3 Ml Ampul.Neb IH 06/29/22 02:13 Q6HRT GERRI Sodium Chloride 1,000 mls @ 999 mls/hr 05/29/22 23:37 05/29/22 23:44 Sodium Chloride 0.9% 1000 Ml IV 05/30/22 00:37 999 mls/hr .Q1H1M STA Administration Sodium Chloride Confirm 05/29/22 23:44 Sodium Chloride 0.9% 1000 Ml Administered 05/29/22 23:45 Dose 1,000 mls @ ud .ROUTE .STK-MED ONE Levofloxacin/Dextrose 750 mg in 150 mls @ 100 mls/hr 05/29/22 23:46 05/29/22 23:56 Levofloxacin 750mg/150ml D5w IV 05/30/22 01:15 100 ml/hr STAT STA 100 mls/hr Administration Levofloxacin/Dextrose Confirm 05/29/22 23:54 Levofloxacin 750mg/150ml D5w Administered 05/29/22 23:55 Dose 750 mg in 150 mls @ ud IV .STK-MED ONE Levofloxacin/Dextrose 500 mg in 100 mls @ 100 mls/hr 05/30/22 10:00 05/30/22 09:20 Levofloxacin 500mg/100ml D5w IV 06/29/22 09:59 100 mls/hr Q24H10 GERRI Administration Insulin Glargine 50 unit 05/30/22 12:12 05/30/22 13:27 Insulin Glargine 1 Unit SQ 05/30/22 12:13 50 unit ONCE ONE Administration Insulin Glargine 50 unit 05/30/22 22:00 05/31/22 22:10 Insulin Glargine 1 Unit SQ 06/29/22 21:59 50 unit HS GERRI Administration Insulin Human Lispro 0 unit 05/30/22 02:14 05/30/22 09:23 Insulin Lispro 1 Unit SQ 06/29/22 02:13 11 unit UD PRN Administration HYPERGLYCEMIA Non-Formulary Medication 1 each 05/30/22 12:08 Pharmacy Dosing Request 05/30/22 12:09 STAT ONE Ondansetron HCl 4 mg 05/29/22 22:18 05/29/22 22:30 Ondansetron Hcl 4 Mg/2 Ml Vial IV 05/29/22 22:19 4 mg STAT ONE Administration Ondansetron HCl Confirm 05/29/22 22:29 Ondansetron Hcl 4 Mg/2 Ml Vial Administered 05/29/22 22:30 Dose 4 mg .ROUTE .STK-MED ONE Pantoprazole Sodium 40 mg 05/30/22 10:00 06/02/22 10:00 Pantoprazole 40 Mg Vial IV 06/29/22 09:59 40 mg Q24H10 GERRI Administration Potassium Chloride 40 meq 06/02/22 06:43 06/02/22 06:51 Potassium Chloride Tab 10 Meq Tab PO 06/02/22 06:44 40 meq STAT ONE Administration Potassium Chloride Confirm 06/02/22 06:49 Potassium Chloride Tab 10 Meq Tab Administered 06/02/22 06:50 Dose 40 meq PO .STK-MED ONE Intake & Output (Last 24 hours) 06/01/22 06/02/22 06/03/22 06/04/22 11:59 11:59 11:59 11:59 Intake Total 2917 1680 3795 400 Output Total 400 Balance 2517 1680 3795 400 Weight 101 kg 101 kg Microbiology Results (Last 24 hours) 05/29/22 22:38 Blood Blood Culture Gram Stain - Final Not Reportable 05/29/22 22:38 Blood Blood Culture - Final NO GROWTH 05/29/22 22:38 Blood Blood Culture Gram Stain - Final Not Reportable 05/29/22 22:38 Blood Blood Culture - Final NO GROWTH Laboratory Results (Last 24 hours) 06/03/22 06/03/22 06/03/22 16:08 11:46 07:19 WBC RBC Hgb Hct MCV MCH MCHC RDW Plt Count MPV Sodium Potassium Chloride Carbon Dioxide Anion Gap BUN Creatinine Estimated GFR Glucose POC Glucometer 279 H 234 H 119 H Calcium Total Bilirubin AST ALT Alkaline Phosphatase Serum Total Protein Albumin 06/03/22 06/03/22 06/02/22 05:08 05:08 21:38 WBC 12.2 H RBC 5.06 Hgb 13.2 Hct 40.9 L MCV 80.8 MCH 26.1 MCHC 32.3 RDW 13.4 Plt Count 345 MPV 10.3 Sodium 136 L Potassium 3.4 L Chloride 102 Carbon Dioxide 32 H Anion Gap 6.2 BUN 7 L Creatinine 0.37 L Estimated GFR > 60.0 Glucose 151 H POC Glucometer 289 H Calcium 7.4 L Total Bilirubin 0.20 AST 16 L ALT 11 Alkaline Phosphatase 114 Serum Total Protein 5.7 L Albumin 2.5 L Orders (Last 24 hours) Category Date Time Status Consult Tele-Health [Tele-Health Consult] ROUTINE Cons 06/03/22 08:24 Active NPO Diet 06/04/22 00:01 Active CHEST 1 VIEW (PORTABLE) Urgent Exams 06/03/22 08:35 Completed CBC AM.LAB Lab 06/03/22 05:08 Completed CMP AM.LAB Lab 06/03/22 05:08 Completed POCT GLUCOSE Stat Lab 06/02/22 21:38 Completed POCT GLUCOSE Stat Lab 06/03/22 07:19 Completed POCT GLUCOSE Stat Lab 06/03/22 11:46 Completed POCT GLUCOSE Stat Lab 06/03/22 16:08 Completed PANTOPRAZOLE 40 mg Tablet [Protonix 40MG Tablet] Med 06/03/22 10:00 Active 40 mg PO DAILY EKG ROUTINE RT 06/04/22 06:00 Active Patient Care Notes (Last 24 hours) 06/03/22 16:56 Physical Therapy Note by Christa Arenas PATIENT WAS TREATED IN ROOM FOR FUNCTIONAL STRENGTHENING OF LE AND ENDURANCE. NOTED UPON ENTERING ROOM, PT SITTING WITH LE DEPENDENT AND COPIOUS SEROUS DRAINAGE FROM BILATERAL LE SATURATING UNNA BOOT DRESSING AND SOCKS. NOTED TRAIL OF DRAINAGE ON THE FLOOR TO BATHROOM AND RETURNING TO CHAIR. PT REPORTING HE IS AMBULATING INDEPENDENTLY TO BATHROOM WITH WALKER AT CHAIRSIDE. PATIENT PERFORMED LE EXERCISES WITH ACTIVE ROM, ISOLATED MUSCLE ISOMETRICS,TRANSFER AND BALANCE SKILLS WITHIN PATIENT'S ENDURANCE. PT DID FATIGUE RAPIDLY WITH STATIC STANDING RESULTING WITH PATIENT REQUESTING TO RETURNING TO SITTING. PT DID REQUIRE DEMONSTRATIVE AND MUCH ENCOURAGEMENT TO ATTEMPT INITIATING WEIGHT BEARING EXERCISES. Initialized on 06/03/22 16:56 - END OF NOTE 06/03/22 15:40 Case Management Note by Jud Kurtz REPORTS THEY CARE WORKING TO TRY TO GET PATIENT IN TO THEIR FACILITY. PATIENT CURRENTLY HAS A 50% COPAY REQUIRED BY HIS INSURANCE. THEY ARE TALKING TO THEIR BUSINESS OFFICE TO SEE WHAT THEY CAN DO (MEDICAID PENDING) Initialized on 06/03/22 15:40 - END OF NOTE 06/03/22 11:30 (created 06/03/22 13:15) Case Management Note by Jud Kurtz FROM [facility] CAME OVER AND TALKED WITH PATIENT- WILL NOTIFY THEM ON STATUS OF [facility] REFERRAL Initialized on 06/03/22 13:15 - END OF NOTE 06/03/22 10:40 (created 06/03/22 10:54) Nursing Note by Catherine Mendiola faxed records to [facility] Initialized on 06/03/22 10:54 - END OF NOTE 06/03/22 10:27 (created 06/03/22 10:53) Nursing Note by Catherine Mendiola Called [facility] consult ([facility]) Initialized on 06/03/22 10:53 - END OF NOTE 06/03/22 08:41 Case Management Note by Jud Kurtz S/W PATIENT ABOUT GOING TO REHAB FOR HELP WITH HIS CARE. PATIENT HAS BRANDAN BOOTS ON AMBAR. LEGS AND WOUNDS ON HIS BACK. PATIENT AGREEABLE. WE DISCUSSED GOING TO [facility] WHERE THEY COULD HELP HIM GET ESTABLISHED WITH MEDICAID. PATIENT AGREEABLE. DURING CONVERSATION PATIENT STATED " IM OPEN TO ANY HELP BECAUSE IM ABOUT TO 'PATIENT MOTIONED TO A GUN TO HIS HEAD'". THIS NURSE REPLIED- " NOW YOUR NOT SERIOUS ARE YOU?". PATIENT REPLIED " OH YES I AM, I LIVE RIGHT NEXT TO THE RAILROAD AND WHEN YOU HIT A END LIKE THIS..." PATIENT REASSURED WE WOULD DO EVERYTHING WE COULD TO HELP HIM. [facility] CONSULT ENTERED. PRIMARY NURSE NOTIFIED Initialized on 06/03/22 08:41 - END OF NOTE Code(s): T14.8XXA - OTHER INJURY OF UNSPECIFIED BODY REGION, INITIAL ENCOUNTER (2) Uncontrolled diabetes mellitus Current Visit: Yes Status: Acute Qualifiers: Diabetes mellitus type: type 2 Glycemic state: with hyperglycemia Qualified Code(s): E11.65 - Type 2 diabetes mellitus with hyperglycemia Code(s): OBU0292 - (3) Acute UTI Current Visit: Yes Status: Resolved Code(s): N39.0 - URINARY TRACT INFECTION, SITE NOT SPECIFIED (4) Gall stone Current Visit: Yes Status: Chronic Qualifiers: Cholecystitis presence: without cholecystitis Code(s): K80.20 - CALCULUS OF GALLBLADDER W/O CHOLECYSTITIS W/O OBSTRUCTION (5) Renal stones Current Visit: Yes Status: Chronic
[2022-06-03] MEDS: Lantus Insulin SQ SCH (21:28)
[2022-06-04] MEDS: Merrem 1 GM in Sodium Chloride 100ML MINI-BAG PLUS 100 ML IV SCH ×3 (05:05→22:01)
[2022-06-04] MEDS ORDERED: Sensorcaine 0.25% 10 ML ONE (06:53)
[2022-06-04] MEDS ORDERED: XYLOCAINE 1% HCL 20 ML MDV ONE (06:53)
[2022-06-04] MEDS ORDERED: CLINDAMYCIN-D5W 600 MG/50 ML*** 600 MG/50 ML BAG IV SCH (08:30)
[2022-06-04] MEDS ORDERED: Pepcid 20 MG VIAL IV SCH (08:30)
[2022-06-04] MEDS ORDERED: Reglan 10 MG/2 ML IV SCH (08:30)
[2022-06-04] MEDS ORDERED: Lactated Ringers 1,000 ML IV SCH (08:30)
[2022-06-04] MEDS ORDERED: Zofran 4 MG/2 ML VIAL ONE (09:03)
[2022-06-04] MEDS ORDERED: Xylocaine-Mpf 2% 5 Ml Vial ONE (09:03)
[2022-06-04] MEDS ORDERED: Decadron 4 MG INJ ONE (09:07)
[2022-06-04] MEDS ORDERED: SUBLIMAZE 100 MCG/2 ML ONE (09:07)
[2022-06-04] MEDS ORDERED: Amidate 20 MG/10 ML IV ONE (09:21)
[2022-06-04] MEDS: Protonix 40MG Tablet PO SCH (11:23)
[2022-06-04] MEDS: HUMALOG SQ PRN ×2 (12:55→17:26)
[2022-06-04] MEDS: BUMEX 1 MG PO SCH (13:24)
--- NOTE | 2022-06-04 13:35 | PCM.NOTE ---
Date and Time: 06/04/22 1334 Subjective Assessment: doing better, Awaiting placement - Review of Systems Constitutional: No Fever, No Chills Eyes: No Symptoms Ears, Nose, & Throat: No Symptoms Respiratory: No Cough, No Short Of Breath Cardiac: No Chest Pain, No Edema, No Syncope Abdominal/Gastrointestinal: No Abdominal Pain, No Nausea, No Vomiting, No Diarrhea Genitourinary Symptoms: No Dysuria Musculoskeletal: No Back Pain, No Neck Pain Skin: No Rash Neurological: No Dizziness, No Focal Weakness, No Sensory Changes Psychological: No Symptoms Endocrine: No Symptoms Hematologic/Lymphatic: No Symptoms Immunological/Allergic: No Symptoms Objective Exam General Appearance: no apparent distress, alert Neurologic Exam: alert, oriented x 3, cooperative, normal mood/affect, nml cerebellar function, sensation nml, No motor deficits Skin Exam: normal color, warm, dry Eye Exam: PERRL, EOMI, eyes nml inspection Ears, Nose, Throat Exam: normal ENT inspection, pharynx normal, moist mucous membranes Neck Exam: normal inspection, non-tender, supple, full range of motion Respiratory Exam: normal breath sounds, lungs clear, No respiratory distress Cardiovascular Exam: regular rate/rhythm, normal heart sounds Gastrointestinal/Abdomen Exam: soft, No tenderness, No mass Extremity Exam: normal inspection, normal range of motion Back Exam: normal inspection, normal range of motion, No CVA tenderness, No vertebral tenderness Male Genitalia Exam: deferred Rectal Exam: deferred OBJECTIVE DATA Vital Signs: Vital Signs - 24 hr Temp Pulse Resp BP Pulse Ox 06/04/22 08:27 97.5 F 77 16 116/58 97 06/04/22 07:07 97.5 F 77 16 116/58 97 06/04/22 04:00 98.2 F 80 18 124/58 96 06/03/22 23:31 98.2 F 78 18 118/58 98 06/03/22 20:00 97.7 F 89 18 122/67 99 06/03/22 19:48 82 06/03/22 16:00 98.6 F 82 16 114/68 96 Pain Assessment - Last Documented Pain Intensity 5 Pain Scale Used 0-10 Pain Scale Intake and Output: Intake & Output 06/02/22 06/03/22 06/04/22 06/05/22 11:59 11:59 11:59 11:59 Intake Total 1680 4337 6067 Balance 1680 379 3398 Weight 101 kg 102.2 kg Lab Results: Lab Results-Last 24 Hours 06/03/22 06/03/22 06/04/22 Range/Units 16:08 21:08 09:01 POC Glucometer 279 H 219 H 197 H (74 to 106) mg/dL Radiology Exams: Radiology Procedures Category Date Time Status CHEST 1 VIEW (PORTABLE) Urgent Exams 06/03/22 08:35 Completed VENOUS BILATERAL EXTREMITY [US] Urgent Exams 06/02/22 16:20 Completed Multi-Disciplinary Progress Notes: Multi-Disciplinary Progress Notes 06/04/22 11:01 Case Management Note by Jud Kurtz CALLED [facility] TO CHECK ON STATUS OF REFERRAL- NO ANSWER AT THIS TIME- LM Initialized on 06/04/22 11:01 - END OF NOTE 06/03/22 16:56 Physical Therapy Note by Christa Arenas PATIENT WAS TREATED IN ROOM FOR FUNCTIONAL STRENGTHENING OF LE AND ENDURANCE. NOTED UPON ENTERING ROOM, PT SITTING WITH LE DEPENDENT AND COPIOUS SEROUS DRAINAGE FROM BILATERAL LE SATURATING UNNA BOOT DRESSING AND SOCKS. NOTED TRAIL OF DRAINAGE ON THE FLOOR TO BATHROOM AND RETURNING TO CHAIR. PT REPORTING HE IS AMBULATING INDEPENDENTLY TO BATHROOM WITH WALKER AT CHAIRSIDE. PATIENT PERFORMED LE EXERCISES WITH ACTIVE ROM, ISOLATED MUSCLE ISOMETRICS,TRANSFER AND BALANCE SKILLS WITHIN PATIENT'S ENDURANCE. PT DID FATIGUE RAPIDLY WITH STATIC STANDING RESULTING WITH PATIENT REQUESTING TO RETURNING TO SITTING. PT DID REQUIRE DEMONSTRATIVE AND MUCH ENCOURAGEMENT TO ATTEMPT INITIATING WEIGHT BEARING EXERCISES. Initialized on 06/03/22 16:56 - END OF NOTE 06/03/22 15:40 Case Management Note by Jud Kurtz REPORTS THEY CARE WORKING TO TRY TO GET PATIENT IN TO THEIR FACILITY. PATIENT CURRENTLY HAS A 50% COPAY REQUIRED BY HIS INSURANCE. THEY ARE TALKING TO THEIR BUSINESS OFFICE TO SEE WHAT THEY CAN DO (MEDICAID PENDING) Initialized on 06/03/22 15:40 - END OF NOTE Assessment/Plan (1) Multiple wounds of skin Current Visit: Yes Status: Acute Assessment & Plan: Chief Complaint Diagnosis SEPSIS, UTI, MULT WOUNDS Allergies Allergy/AdvReac Type Severity Reaction Status Date / Time Penicillins Allergy Verified 01/26/19 02:07 Sulfa (Sulfonamide Allergy Verified 05/29/22 22:21 Antibiotics) Vital Signs (Last 24 hours) Temp Pulse Resp BP Pulse Ox 06/04/22 08:27 97.5 F 77 16 116/58 97 06/04/22 07:07 97.5 F 77 16 116/58 97 06/04/22 04:00 98.2 F 80 18 124/58 96 06/03/22 23:31 98.2 F 78 18 118/58 98 06/03/22 20:00 97.7 F 89 18 122/67 99 06/03/22 19:48 82 06/03/22 16:00 98.6 F 82 16 114/68 96 Home Medications Medication Instructions Recorded Confirmed Last Taken Type No Reportable Medications [No 05/30/22 05/30/22 Unknown History Reported Medications] Current Medications Generic Name Dose Route Start Last Admin Trade Name Freq PRN Reason Stop Dose Admin Acetaminophen 650 mg 05/30/22 02:14 06/03/22 19:35 Acetaminophen 325 Mg Tablet PO 06/29/22 02:13 650 mg Q4H PRN PRN Administration PAIN AND/OR FEVER Bumetanide 1 mg 06/04/22 13:00 06/04/22 13:24 Bumetanide 1 Mg Tablet PO 07/04/22 12:59 1 mg DAILY GERRI Administration Diphenoxylate HCl/Atropine 2 tablet 05/30/22 20:29 06/03/22 19:36 Diphenoxylate Hcl/Atropine 1 Tablet PO 06/29/22 20:28 2 tablet QID PRN PRN Administration DIARRHEA Potassium Chloride/Sodium Chloride 1,000 mls @ 100 mls/hr 05/30/22 02:14 06/03/22 22:54 Sodium Chloride 0.9% W/ 20 Meq Kcl/Liter IV 06/29/22 02:13 100 mls/hr .Q10H GERRI Administration Meropenem 1 gm/ Sodium 100 mls @ 200 mls/hr 05/30/22 14:00 06/04/22 05:05 Chloride IV 06/05/22 13:59 200 mls/hr Q8HT GERRI Administration Insulin Glargine 70 unit 06/01/22 22:00 06/03/22 21:28 Insulin Glargine 1 Unit SQ 07/01/22 21:59 70 unit HS GERRI Administration Insulin Human Lispro 0 unit 05/30/22 12:11 06/04/22 12:55 Insulin Lispro 1 Unit SQ 06/29/22 12:10 4 unit UD PRN Administration HYPERGLYCEMIA Metformin HCl 1,000 mg 05/30/22 18:00 06/03/22 17:19 Metformin Hcl Er 500 Mg Tab PO 06/29/22 17:59 1,000 mg EVENING MEAL GERRI Administration Ondansetron HCl 4 mg 05/30/22 02:14 05/30/22 21:34 Ondansetron Hcl 4 Mg/2 Ml Vial IV 06/29/22 02:13 4 mg Q6H PRN PRN Administration NAUSEA/VOMITING Pantoprazole Sodium 40 mg 06/03/22 10:00 06/04/22 11:23 Protonix (Pantoprazole) 40 Mg Tablet PO 07/03/22 09:59 Not Given DAILY GERRI Discontinued Medications Generic Name Dose Route Start Last Admin Trade Name Freq PRN Reason Stop Dose Admin Albuterol/Ipratropium 3 ml 05/30/22 02:14 Ipratropium/Albuterol Sulfate 3 Ml Ampul.Neb IH 06/29/22 02:13 Q6HRT GERRI Bumetanide 1 mg 06/05/22 10:00 Bumetanide 1 Mg Tablet PO 07/05/22 09:59 DAILY GERRI Bupivacaine HCl Confirm 06/04/22 06:53 Bupivacaine Hcl 2.5 Mg/Ml 10 Ml Administered 06/04/22 06:54 Dose 10 ml .ROUTE .STK-MED ONE Dexamethasone Sodium Phosphate Confirm 06/04/22 09:07 Dexamethasone Sod Phosphate 4 Mg/Ml Ml Administered 06/04/22 09:08 Dose 4 mg .ROUTE .STK-MED ONE Etomidate Confirm 06/04/22 09:21 Etomidate 20 Mg/10 Ml Amp Administered 06/04/22 09:22 Dose 20 mg IV .STK-MED ONE Famotidine 40 mg 06/04/22 08:30 06/04/22 08:46 Famotidine 20 Mg/1 Vial IV 06/04/22 08:31 40 mg 1HRPRIOR GERRI Administration Fentanyl Citrate Confirm 06/04/22 09:07 Fentanyl Citrate 100 Mcg/2 Ml* Vial Administered 06/04/22 09:08 Dose 100 mcg .ROUTE .STK-MED ONE Sodium Chloride 1,000 mls @ 999 mls/hr 05/29/22 23:37 05/29/22 23:44 Sodium Chloride 0.9% 1000 Ml IV 05/30/22 00:37 999 mls/hr .Q1H1M STA Administration Sodium Chloride Confirm 05/29/22 23:44 Sodium Chloride 0.9% 1000 Ml Administered 05/29/22 23:45 Dose 1,000 mls @ ud .ROUTE .STK-MED ONE Levofloxacin/Dextrose 750 mg in 150 mls @ 100 mls/hr 05/29/22 23:46 05/29/22 23:56 Levofloxacin 750mg/150ml D5w IV 05/30/22 01:15 100 ml/hr STAT STA 100 mls/hr Administration Levofloxacin/Dextrose Confirm 05/29/22 23:54 Levofloxacin 750mg/150ml D5w Administered 05/29/22 23:55 Dose 750 mg in 150 mls @ ud IV .STK-MED ONE Levofloxacin/Dextrose 500 mg in 100 mls @ 100 mls/hr 05/30/22 10:00 05/30/22 09:20 Levofloxacin 500mg/100ml D5w IV 06/29/22 09:59 100 mls/hr Q24H10 GERRI Administration Lactated Ringer's 1,000 mls @ 50 mls/hr 06/04/22 08:30 06/04/22 08:46 Lactated Ringers IV 06/05/22 04:29 50 mls/hr .Q20H GERRI Administration Clindamycin HCl/Dextrose 600 mg in 50 mls @ 100 mls/hr 06/04/22 08:30 06/04/22 08:46 Clindamycin-D5w 600 Mg/50 Ml IV 06/04/22 08:59 100 mls/hr ONCALLTOOR GERRI Administration Insulin Glargine 50 unit 05/30/22 12:12 05/30/22 13:27 Insulin Glargine 1 Unit SQ 05/30/22 12:13 50 unit ONCE ONE Administration Insulin Glargine 50 unit 05/30/22 22:00 05/31/22 22:10 Insulin Glargine 1 Unit SQ 06/29/22 21:59 50 unit HS GERRI Administration Insulin Human Lispro 0 unit 05/30/22 02:14 05/30/22 09:23 Insulin Lispro 1 Unit SQ 06/29/22 02:13 11 unit UD PRN Administration HYPERGLYCEMIA Lidocaine HCl Confirm 06/04/22 06:53 Lidocaine Hcl 1% 20 Ml Mdv 20 Ml Ml Administered 06/04/22 06:54 Dose 20 ml .ROUTE .STK-MED ONE Lidocaine HCl Confirm 06/04/22 09:03 Lidocaine - Mpf 2% 5 Ml Vial Administered 06/04/22 09:04 Dose 5 ml .ROUTE .STK-MED ONE Metoclopramide HCl 10 mg 06/04/22 08:30 06/04/22 08:45 Metoclopramide Hcl 10 Mg/2 Ml Vial IV 07/04/22 08:29 10 mg 1HRPRIOR GERRI Administration Morphine Sulfate 2 mg 05/30/22 02:14 Morphine Sulfate 2 Mg/Ml Inj IV 06/04/22 02:13 Q4H PRN PRN PAIN Non-Formulary Medication 1 each 05/30/22 12:08 Pharmacy Dosing Request 05/30/22 12:09 STAT ONE Ondansetron HCl 4 mg 05/29/22 22:18 05/29/22 22:30 Ondansetron Hcl 4 Mg/2 Ml Vial IV 05/29/22 22:19 4 mg STAT ONE Administration Ondansetron HCl Confirm 05/29/22 22:29 Ondansetron Hcl 4 Mg/2 Ml Vial Administered 05/29/22 22:30 Dose 4 mg .ROUTE .STK-MED ONE Ondansetron HCl Confirm 06/04/22 09:03 Ondansetron Hcl 4 Mg/2 Ml Vial Administered 06/04/22 09:04 Dose 4 mg .ROUTE .STK-MED ONE Pantoprazole Sodium 40 mg 05/30/22 10:00 06/02/22 10:00 Pantoprazole 40 Mg Vial IV 06/29/22 09:59 40 mg Q24H10 GERRI Administration Potassium Chloride 40 meq 06/02/22 06:43 06/02/22 06:51 Potassium Chloride Tab 10 Meq Tab PO 06/02/22 06:44 40 meq STAT ONE Administration Potassium Chloride Confirm 06/02/22 06:49 Potassium Chloride Tab 10 Meq Tab Administered 06/02/22 06:50 Dose 40 meq PO .STK-MED ONE Intake & Output (Last 24 hours) 06/02/22 06/03/22 06/04/22 06/05/22 11:59 11:59 11:59 11:59 Intake Total 1680 3795 3397 Balance 1680 3795 3393 Weight 101 kg 102.2 kg Microbiology Results (Last 24 hours) 06/04/22 10:16 Back - Not Known Aerobic Culture - Pending 06/04/22 10:16 Back - Not Known Aerobic Culture Result 1 - Final Not Reportable 06/04/22 10:16 Back - Not Known Aerobic Culture Result 2 - Final Not Reportable 06/04/22 10:16 Back - Not Known Aerobic Culture Result 3 - Final Not Reportable 06/04/22 10:16 Back - Not Known Aerobic Culture Result 4 - Final Not Reportable 06/04/22 10:16 Back - Not Known Aerobic Bacterial Sensitivity - Final Not Reportable 06/04/22 10:16 Back - Not Known Aerobic Organism ID Result 1 - Pending 06/04/22 10:16 Back - Not Known Anaerobic Culture - Pending 06/04/22 10:16 Back - Not Known Anaerobic Culture - Pending 06/04/22 10:16 Back - Not Known Anaerobic Culture Result 1 - Pending 06/04/22 10:16 Back - Not Known Anaerobic Culture Result 3 - Pending 06/04/22 10:16 Back - Not Known Anaerobic Culture Result 4 - Pending 06/04/22 10:16 Back - Not Known Anaerobic Bacterial Sensitivity - Pending 06/04/22 10:14 Neck - Not Known Aerobic Culture - Pending 06/04/22 10:14 Neck - Not Known Aerobic Culture Result 1 - Final Not Reportable 06/04/22 10:14 Neck - Not Known Aerobic Culture Result 2 - Final Not Reportable 06/04/22 10:14 Neck - Not Known Aerobic Culture Result 3 - Final Not Reportable 06/04/22 10:14 Neck - Not Known Aerobic Culture Result 4 - Final Not Reportable 06/04/22 10:14 Neck - Not Known Aerobic Bacterial Sensitivity - Final Not Reportable 06/04/22 10:14 Neck - Not Known Aerobic Organism ID Result 1 - Pending 06/04/22 10:14 Neck - Not Known Anaerobic Culture - Pending 06/04/22 10:14 Neck - Not Known Anaerobic Culture - Pending 06/04/22 10:14 Neck - Not Known Anaerobic Culture Result 1 - Pending 06/04/22 10:14 Neck - Not Known Anaerobic Culture Result 3 - Pending 06/04/22 10:14 Neck - Not Known Anaerobic Culture Result 4 - Pending 06/04/22 10:14 Neck - Not Known Anaerobic Bacterial Sensitivity - Pending 05/29/22 22:38 Blood Blood Culture Gram Stain - Final Not Reportable 05/29/22 22:38 Blood Blood Culture - Final NO GROWTH Laboratory Results (Last 24 hours) 06/04/22 06/03/22 06/03/22 09:01 21:08 16:08 POC Glucometer 197 H 219 H 279 H Orders (Last 24 hours) Category Date Time Status 1800 Calorie Carbohydrate Diet [Consistent Carbohydrate Diet 06/04/22 Lunch Active Diet 1800 Calorie] NPO Diet 06/04/22 00:01 Completed Aerobic Culture [MR] Routine Lab 06/04/22 10:14 Received Aerobic Culture [MR] Routine Lab 06/04/22 10:16 Received Anaerobic Culture [MR] Routine Lab 06/04/22 10:14 Received Anaerobic Culture [MR] Routine Lab 06/04/22 10:16 Received POCT GLUCOSE Stat Lab 06/03/22 16:08 Completed POCT GLUCOSE Stat Lab 06/03/22 21:08 Completed POCT GLUCOSE Stat Lab 06/04/22 09:01 Completed Bumetanide 1 mg [Bumex 1 mg] Med 06/04/22 13:00 Active 1 mg PO DAILY Bumetanide 1 mg [Bumex 1 mg] Med 06/05/22 10:00 Discontinued 1 mg PO DAILY Bupivacaine HCl 0.25% 10 ml [Sensorcaine 0.25% 10 ML Med 06/04/22 06:53 Discontinued ] 10 ml .ROUTE .STK-MED ONE Clindamycin 600 mg/D5w 50 ml [Clindamycin-D5w 600 mg/ Med 06/04/22 08:30 Discontinued 50 ml] 600 mg in 50 ml IV ONCALLTOOR Dexamethasone 4 mg [Decadron 4 MG INJ] Med 06/04/22 09:07 Discontinued 4 mg .ROUTE .STK-MED ONE Etomidate 20 mg/10 ml [Amidate 20 MG/10 ML] Med 06/04/22 09:21 Discontinued 20 mg IV .STK-MED ONE Famotidine 20 mg Vial [Pepcid 20 MG VIAL] Med 06/04/22 08:30 Discontinued 40 mg IV 1HRPRIOR Fentanyl Citrate 100 Mcg/2 ml* [Sublimaze 100 Mcg/2 ml* Med 06/04/22 09:07 Discontinued ] 100 mcg .ROUTE .STK-MED ONE Lidocaine HCl 1% 20 ml Mdv [Xylocaine 1% HCl 20 ml Med 06/04/22 06:53 Discontinued Mdv] 20 ml .ROUTE .STK-MED ONE Lidocaine HCl 2% Mpf 5 ml [Xylocaine-Mpf 2% 5 Ml Med 06/04/22 09:03 Discontinued Vial] 5 ml .ROUTE .STK-MED ONE Metoclopramide HCl 10 mg/2 ml* [Reglan 10 MG/2 ML] Med 06/04/22 08:30 Discontinued 10 mg IV 1HRPRIOR Ondansetron HCl 4 mg/2 ml [Zofran 4 MG/2 ML VIAL] Med 06/04/22 09:03 Discontinued 4 mg .ROUTE .STK-MED ONE Ringers Solution,Lactated [Lactated Ringers] 1,000 ml Med 06/04/22 08:30 Discontinued IV 50 mls/hr EKG ROUTINE RT 06/04/22 06:00 Completed Patient Care Notes (Last 24 hours) 06/04/22 11:55 Nursing Note by Radha Dhaliwal Patient is back to floor from the O.R. Initialized on 06/04/22 11:55 - END OF NOTE 06/04/22 11:01 Case Management Note by Jud Kurtz CALLED [facility] TO CHECK ON STATUS OF REFERRAL- NO ANSWER AT THIS TIME- LM Initialized on 06/04/22 11:01 - END OF NOTE 06/04/22 09:30 (created 06/04/22 09:39) Nursing Note by Cat Moody Pre-op hand-off done. Patient transported to OR Initialized on 06/04/22 09:39 - END OF NOTE 06/04/22 09:15 (created 06/04/22 09:37) Nursing Note by Cat Moody Dr. to see pt. removed bandages from BLE's to assess leg wounds. Zinc cream applied to bilat legs and redressed with gauze fluff roll x 2. 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 Crain Sparks Initialized on 06/04/22 09:36 - END OF NOTE 06/03/22 16:56 Physical Therapy Note by Chritsa Arenas PATIENT WAS TREATED IN ROOM FOR FUNCTIONAL STRENGTHENING OF LE AND ENDURANCE. NOTED UPON ENTERING ROOM, PT SITTING WITH LE DEPENDENT AND COPIOUS SEROUS DRAINAGE FROM BILATERAL LE SATURATING UNNA BOOT DRESSING AND SOCKS. NOTED TRAIL OF DRAINAGE ON THE FLOOR TO BATHROOM AND RETURNING TO CHAIR. PT REPORTING HE IS AMBULATING INDEPENDENTLY TO BATHROOM WITH WALKER AT CHAIRSIDE. PATIENT PERFORMED LE EXERCISES WITH ACTIVE ROM, ISOLATED MUSCLE ISOMETRICS,TRANSFER AND BALANCE SKILLS WITHIN PATIENT'S ENDURANCE. PT DID FATIGUE RAPIDLY WITH STATIC STANDING RESULTING WITH PATIENT REQUESTING TO RETURNING TO SITTING. PT DID REQUIRE DEMONSTRATIVE AND MUCH ENCOURAGEMENT TO ATTEMPT INITIATING WEIGHT BEARING EXERCISES. Initialized on 06/03/22 16:56 - END OF NOTE 06/03/22 15:40 Case Management Note by Jud Kurtz REPORTS THEY CARE WORKING TO TRY TO GET PATIENT IN TO THEIR FACILITY. PATIENT CURRENTLY HAS A 50% COPAY REQUIRED BY HIS INSURANCE. THEY ARE TALKING TO THEIR BUSINESS OFFICE TO SEE WHAT THEY CAN DO (MEDICAID PENDING) Initialized on 06/03/22 15:40 - END OF NOTE Code(s): T14.8XXA - OTHER INJURY OF UNSPECIFIED BODY REGION, INITIAL ENCOUNTER (2) Uncontrolled diabetes mellitus Current Visit: Yes Status: Acute Qualifiers: Diabetes mellitus type: type 2 Glycemic state: with hyperglycemia Qualified Code(s): E11.65 - Type 2 diabetes mellitus with hyperglycemia Code(s): TZI6390 - (3) Acute UTI Current Visit: Yes Status: Resolved Code(s): N39.0 - URINARY TRACT I NFECTION, SITE NOT SPECIFIED (4) Gall stone Current Visit: Yes Status: Chronic Qualifiers: Cholecystitis presence: without cholecystitis Code(s): K80.20 - CALCULUS OF GALLBLADDER W/O CHOLECYSTITIS W/O OBSTRUCTION (5) Renal stones Current Visit: Yes Status: Chronic
--- NOTE | 2022-06-04 15:58 | PCM.NOTE ---
Date and Time: 06/04/22 1557 Subjective Assessment: dressings saturated. no complaints Physical Exam - General General Appearance: no apparent distress - Neuro Neurologic: Epicritic and protopathic - Vascular Peripheral Pulses: Posterior tibialis: 2+, Dorsalis-Pedis: 2+ Capillary Refill Time: < 3 seconds Hair Growth: Symmetrical and Bilateral Varicosities: Positive Edema: Pitting Edema Degree: 1+ Skin: Supple, not atrophic Skin Temperature: Warm to touch - Muscular Muscle Strength: 5/5 on all 4 quadrants - Narrative Narrative Physical Exam: Podiatry Physical Exam OBJECTIVE DATA Vital Signs: Vital Signs - 24 hr Temp Pulse Resp BP Pulse Ox 06/04/22 14:42 98 06/04/22 08:27 97.5 F 77 16 116/58 97 06/04/22 07:07 97.5 F 77 16 116/58 97 06/04/22 04:00 98.2 F 80 18 124/58 96 06/03/22 23:31 98.2 F 78 18 118/58 98 06/03/22 20:00 97.7 F 89 18 122/67 99 06/03/22 19:48 82 06/03/22 16:00 98.6 F 82 16 114/68 96 Pain Assessment - Last Documented Pain Intensity 5 Pain Scale Used 0-10 Pain Scale Intake and Output: Intake & Output 06/02/22 06/03/22 06/04/22 06/05/22 11:59 11:59 11:59 11:59 Intake Total 1680 3795 3397 Balance 1680 3795 3397 Weight 101 kg 102.2 kg Lab Results: Lab Results-Last 24 Hours 06/03/22 06/03/22 06/04/22 Range/Units 16:08 21:08 09:01 POC Glucometer 279 H 219 H 197 H (74 to 106) mg/dL 06/04/22 Range/Units 12:30 POC Glucometer 185 H (74 to 106) mg/dL Radiology Exams: Radiology Procedures Category Date Time Status CHEST 1 VIEW (PORTABLE) Urgent Exams 06/03/22 08:35 Completed VENOUS BILATERAL EXTREMITY [US] Urgent Exams 06/02/22 16:20 Completed Multi-Disciplinary Progress Notes: Multi-Disciplinary Progress Notes 06/04/22 11:01 Case Management Note by Jud Kurtz CALLED [facility] TO CHECK ON STATUS OF REFERRAL- NO ANSWER AT THIS TIME- LM Initialized on 06/04/22 11:01 - END OF NOTE 06/03/22 16:56 Physical Therapy Note by Christa Arenas PATIENT WAS TREATED IN ROOM FOR FUNCTIONAL STRENGTHENING OF LE AND ENDURANCE. NOTED UPON ENTERING ROOM, PT SITTING WITH LE DEPENDENT AND COPIOUS SEROUS DRAINAGE FROM BILATERAL LE SATURATING UNNA BOOT DRESSING AND SOCKS. NOTED TRAIL OF DRAINAGE ON THE FLOOR TO BATHROOM AND RETURNING TO CHAIR. PT REPORTING HE IS AMBULATING INDEPENDENTLY TO BATHROOM WITH WALKER AT CHAIRSIDE. PATIENT PERFORMED LE EXERCISES WITH ACTIVE ROM, ISOLATED MUSCLE ISOMETRICS,TRANSFER AND BALANCE SKILLS WITHIN PATIENT'S ENDURANCE. PT DID FATIGUE RAPIDLY WITH STATIC STANDING RESULTING WITH PATIENT REQUESTING TO RETURNING TO SITTING. PT DID REQUIRE DEMONSTRATIVE AND MUCH ENCOURAGEMENT TO ATTEMPT INITIATING WEIGHT BEARI NG EXERCISES. Initialized on 06/03/22 16:56 - END OF NOTE Assessment/Plan (1) Ulcer of extremity due to chronic venous insufficiency Current Visit: Yes Status: Acute Assessment & Plan: Patient examination and evaluation. Venous Doppler obtained demonstrating negative for deep vein thrombosis. Patient does have palpable pulses at this time and 1+ pitting edema however this is severe and chronic at this time with venous insufficiency ulceration and serous fluid drainage. Patient is at a high risk for cellulitis contracture and therefore Unna boot compression was applied to the bilateral lower extremity with moderate compression. Compression to stay on for 2 days and will reassess on and reapply if necessary. Will follow closely while inpatient Code(s): L98.499 - NON-PRESSURE CHRONIC ULCER OF SKIN OF SITES W UNSP SEVERITY; I87.2 - VENOUS INSUFFICIENCY (CHRONIC) (PERIPHERAL) (2) Onychomycosis Current Visit: Yes Status: Acute Code(s): B35.1 - TINEA UNGUIUM (3) Hyperglycemia Current Visit: Yes Status: Acute Code(s): R73.9 - HYPERGLYCEMIA, UNSPECIFIED (4) Multiple wounds of skin Current Visit: Yes Status: Acute Code(s): T14.8XXA - OTHER INJURY OF U NSPECIFIED BODY REGION, INITIAL ENCOUNTER (5) Sepsis Current Visit: Yes Status: Acute (6) Uncontrolled diabetes mellitus Current Visit: Yes Status: Acute Qualifiers: Diabetes mellitus type: type 2 Glycemic state: with hyperglycemia Qualified Code(s): E11.65 - Type 2 diabetes mellitus with hyperglycemia Code(s): [id number] - (7) Acute UTI Current Visit: Yes Status: Resolved Code(s): N39.0 - URINARY TRACT INFECTION, SITE NOT SPECIFIED
--- NOTE | 2022-06-04 16:02 | PCM.NOTE ---
Date and Time: 06/04/22 1601 Subjective Assessment: dressing with strike throguh. denies any complaints. Physical Exam - General General Appearance: no apparent distress - Neuro Neurologic: Epicritic and protopathic - Vascular Peripheral Pulses: Posterior tibialis: 2+, Dorsalis-Pedis: 2+ Capillary Refill Time: < 3 seconds Hair Growth: Symmetrical and Bilateral Varicosities: Positive Edema: Pitting Edema Degree: 1+ Skin: Supple, not atrophic - Narrative Narrative Physical Exam: Podiatry Physical Exam OBJECTIVE DATA Vital Signs: Vital Signs - 24 hr Temp Pulse Resp BP Pulse Ox 06/04/22 14:42 98 06/04/22 08:27 97.5 F 77 16 116/58 97 06/04/22 07:07 97.5 F 77 16 116/58 97 06/04/22 04:00 98.2 F 80 18 124/58 96 06/03/22 23:31 98.2 F 78 18 118/58 98 06/03/22 20:00 97.7 F 89 18 122/67 99 06/03/22 19:48 82 Pain Assessment - Last Documented Pain Intensity 5 Pain Scale Used 0-10 Pain Scale Intake and Output: Intake & Output 06/02/22 06/03/22 06/04/22 06/05/22 11:59 11:59 11:59 11:59 Intake Total 1680 3795 3397 Balance 1680 3795 3397 Weight 101 kg 102.2 kg Lab Results: Lab Results-Last 24 Hours 06/03/22 06/03/22 06/04/22 Range/Units 16:08 21:08 09:01 POC Glucometer 279 H 219 H 197 H (74 to 106) mg/dL 06/04/22 Range/Units 12:30 POC Glucometer 185 H (74 to 106) mg/dL Radiology Exams: Radiology Procedures Category Date Time Status CHEST 1 VIEW (PORTABLE) Urgent Exams 06/03/22 08:35 Completed VENOUS BILATERAL EXTREMITY [US] Urgent Exams 06/02/22 16:20 Completed Multi-Disciplinary Progress Notes: Multi-Disciplinary Progress Notes 06/04/22 11:01 Case Management Note by Jud Kurtz CALLED [facility] TO CHECK ON STATUS OF REFERRAL- NO ANSWER AT THIS TIME- LM Initialized on 06/04/22 11:01 - END OF NOTE 06/03/22 16:56 Physical Therapy Note by Christa Arenas PATIENT WAS TREATED IN ROOM FOR FUNCTIONAL STRENGTHENING OF LE AND ENDURANCE. NOTED UPON ENTERING ROOM, PT SITTING WITH LE DEPENDENT AND COPIOUS SEROUS DRAINAGE FROM BILATERAL LE SATURATING UNNA BOOT DRESSING AND SOCKS. NOTED TRAIL OF DRAINAGE ON THE FLOOR TO BATHROOM AND RETURNING TO CHAIR. PT REPORTING HE IS AMBULATING INDEPENDENTLY TO BATHROOM WITH WALKER AT CHAIRSIDE. PATIENT PERFORMED LE EXERCISES WITH ACTIVE ROM, ISOLATED MUSCLE ISOMETRICS,TRANSFER AND BALANCE SKILLS WITHIN PATIENT'S ENDURANCE. PT DID FATIGUE RAPIDLY WITH STATIC STANDING RESULTING WITH PATIENT REQUESTING TO RETURNING TO SITTING. PT DID REQUIRE DEMONSTRATIVE AND MUCH ENCOURAGEMENT TO ATTEMPT INITIATING WEIGHT BEARING EXERCISES. Initialized on 06/03/22 16:56 - END OF NOTE Assessment/Plan (1) Ulcer of extremity due to chronic venous insufficiency Current Visit: Yes Status: Acute Assessment & Plan: Patient examination and evaluation. Venous Doppler obtained demonstrating negative for deep vein thrombosis. Patient does have palpable pulses at this time and 1+ pitting edema however this is severe and chronic at this time with venous insufficiency ulceration and serous fluid drainage. Patient is at a high risk for cellulitis contracture and therefore Unna boot compression was applied to the bilateral lower extremity with moderate compression. Compression to stay on for 2 days and will reassess on and reapply if necessary. Will follow closely while inpatient Code(s): L98.499 - NON-PRESSURE CHRONIC ULCER OF SKIN OF SITES W UNSP SEVERITY; I87.2 - VENOUS INSUFFICIENCY (CHRONIC) (PERIPHERAL) (2) Onychomycosis Current Visit: Yes Status: Acute Code(s): B35.1 - TINEA UNGUIUM (3) Hyperglycemia Current Visit: Yes Status: Acute Code(s): R73.9 - HYPERGLYCEMIA, UNSPECIFIED (4) Multiple wounds of skin Current Visit: Yes Status: Acute Code(s): T14.8XXA - OTHER INJURY OF UNSPECIFIED BODY REGION, INITIAL ENCOUNTER (5) Sepsis Current Visit: Yes Status: Acute (6) Uncontrolled diabetes mellitus Current Visit: Yes Status: Acute Qualifiers: Diabetes mellitus type: type 2 Glycemic state: with hyperglycemia Qualified Code(s): E11.65 - Type 2 diabetes mellitus with hyperglycemia Code(s): TTY7827 - (7) Acute UTI Current Visit: Yes Status: Resolved Code(s): N39.0 - URINARY TRACT INFECTION, SITE NOT SPECIFIED
[2022-06-04] MEDS: Glucophage XR 500 MG PO SCH (17:10)
[2022-06-04] MEDS: Lomotil PO PRN (17:26)
[2022-06-04] MEDS: TYLENOL 325 MG PO PRN (21:03)
[2022-06-04] MEDS: Lantus Insulin SQ SCH (22:01)
[2022-06-05] MEDS: Sodium Chloride 0.9% W/ 20 mEq KCl/LITER 1,000 ML IV SCH ×5 (02:54→22:15)
[2022-06-05] MEDS: Merrem 1 GM in Sodium Chloride 100ML MINI-BAG PLUS 100 ML IV SCH ×3 (06:12→21:53)
--- NOTE | 2022-06-05 07:35 | PCM.NOTE ---
Date and Time: 06/05/22 0734 Subjective Assessment: doing ok - Review of Systems Constitutional: No Fever, No Chills Eyes: No Symptoms Ears, Nose, & Throat: No Symptoms Respiratory: No Cough, No Short Of Breath Cardiac: No Chest Pain, No Edema, No Syncope Abdominal/Gastrointestinal: No Abdominal Pain, No Nausea, No Vomiting, No Diarrhea Genitourinary Symptoms: No Dysuria Musculoskeletal: No Back Pain, No Neck Pain Skin: No Rash Neurological: No Dizziness, No Focal Weakness, No Sensory Changes Psychological: No Symptoms Endocrine: No Symptoms Hematologic/Lymphatic: No Symptoms Immunological/Allergic: No Symptoms Objective Exam General Appearance: no apparent distress, alert Neurologic Exam: alert, oriented x 3, cooperative, normal mood/affect, nml cerebellar function, sensation nml, No motor deficits Skin Exam: normal color, warm, dry Wound Assessment: Skin/Wound Assessment Wound/Incision Assessment Start: 06/04/22 17:49 Text: Status: Active Freq: Q6H Protocol: Document 06/05/22 02:00 KS (Rec: 06/05/22 02:48 KS [id number]) Wound/Incision Assessment Right Upper Lateral Back Wound Assessment Shift Assessment Wound Type Incision Dressing Status Reinforced Drainage Amount Large Drainage Description Brown Packing Type Gauze Roll Primary Dressing Absorbant Pad Comment pinrose drain in place Lower Posterior Neck Wound Assessment Shift Assessment Wound Type Incision Dressing Status Reinforced Drainage Amount Large Drainage Description Brown Drainage Odor None/Absent Packing Type Gauze Roll Primary Dressing Absorbant Pad Comment . Eye Exam: PERRL, EOMI, eyes nml inspection Ears, Nose, Throat Exam: normal ENT inspection, pharynx normal, moist mucous membranes Neck Exam: normal inspection, non-tender, supple, full range of motion Respiratory Exam: normal breath sounds, lungs clear, No respiratory distress Cardiovascular Exam: regular rate/rhythm, normal heart sounds Gastrointestinal/Abdomen Exam: soft, No tenderness, No mass Extremity Exam: normal inspection, normal range of motion Back Exam: normal inspection, normal range of motion, No CVA tenderness, No vertebral tenderness Male Genitalia Exam: deferred Rectal Exam: deferred OBJECTIVE DATA Vital Signs: Vital Signs - 24 hr Temp Pulse Resp BP BP Pulse Ox 06/05/22 03:58 98.2 F 73 18 108/55 98 06/05/22 00:00 98.2 F 86 18 126/78 100 06/04/22 20:00 97.8 F 82 20 114/62 99 06/04/22 16:00 97.6 F 82 16 06/04/22 14:45 97.4 F 85 16 106/58 95 06/04/22 14:42 98 06/04/22 13:45 97.4 F 82 14 109/60 97 06/04/22 13:15 97.3 F 77 14 125/60 94 L 06/04/22 12:45 97.1 F 78 16 112/61 94 L 06/04/22 12:30 96.8 F 77 16 119/68 93 L 06/04/22 12:15 97.5 F 74 16 108/59 92 L 06/04/22 12:00 96.6 F 75 16 109/58 94 L 06/04/22 08:27 97.5 F 77 16 116/58 97 Pain Assessment - Last Documented Pain Intensity [Bilateral 0 Lower] Pain Intensity 3 Pain Scale Used 0-10 Pain Scale Intake and Output: Intake & Output 06/02/22 06/03/22 06/04/22 06/05/22 11:59 11:59 11:59 11:59 Intake Total 1680 3795 3397 3370 Balance 1680 3795 3397 3370 Weight 101 kg 102.2 kg Lab Results: Lab Results-Last 24 Hours 06/04/22 06/04/22 06/04/22 Range/Units 09:01 12:30 17:13 POC Glucometer 197 H 185 H 310 H (74 to 106) mg/dL 06/04/22 Range/Units 21:37 POC Glucometer 264 H (74 to 106) mg/dL Radiology Exams: Radiology Procedures Category Date Time Status CHEST 1 VIEW (PORTABLE) Urgent Exams 06/03/22 08:35 Completed Multi-Disciplinary Progress Notes: Multi-Disciplinary Progress Notes 06/04/22 11:01 Case Management Note by Jud Kurtz CALLED [facility] TO CHECK ON STATUS OF REFERRAL- NO ANSWER AT THIS TIME- LM Initialized on 06/04/22 11:01 - END OF NOTE Assessment/Plan (1) Multiple wounds of skin Current Visit: Yes Status: Acute Assessment & Plan: Chief Complaint Diagnosis SEPSIS, UTI, MULT WOUNDS Allergies Allergy/AdvReac Type Severity Reaction Status Date / Time Penicillins Allergy Verified 01/26/19 02:07 Sulfa (Sulfonamide Allergy Verified 05/29/22 22:21 Antibiotics) Vital Signs (Last 24 hours) Temp Pulse Resp BP BP Pulse Ox 06/05/22 03:58 98.2 F 73 18 108/55 98 06/05/22 00:00 98.2 F 86 18 126/78 100 06/04/22 20:00 97.8 F 82 20 114/62 99 06/04/22 16:00 97.6 F 82 16 06/04/22 14:45 97.4 F 85 16 106/58 95 06/04/22 14:42 98 06/04/22 13:45 97.4 F 82 14 109/60 97 06/04/22 13:15 97.3 F 77 14 125/60 94 L 06/04/22 12:45 97.1 F 78 16 112/61 94 L 06/04/22 12:30 96.8 F 77 16 119/68 93 L 06/04/22 12:15 97.5 F 74 16 108/59 92 L 06/04/22 12:00 96.6 F 75 16 109/58 94 L 06/04/22 08:27 97.5 F 77 16 116/58 97 Home Medications Medication Instructions Recorded Confirmed Last Taken Type No Reportable Medications [No 05/30/22 05/30/22 Unknown History Reported Medications] Current Medications Generic Name Dose Route Start Last Admin Trade Name Oleg PRN Reason Stop Dose Admin Acetaminophen 650 mg 05/30/22 02:14 06/04/22 21:03 Acetaminophen 325 Mg Tablet PO 06/29/22 02:13 650 mg Q4H PRN PRN Administration PAIN AND/OR FEVER Bumetanide 1 mg 06/04/22 13:00 06/04/22 13:24 Bumetanide 1 Mg Tablet PO 07/04/22 12:59 1 mg DAILY GERRI Administration Diphenoxylate HCl/Atropine 2 tablet 05/30/22 20:29 06/04/22 17:26 Diphenoxylate Hcl/Atropine 1 Tablet PO 06/29/22 20:28 2 tablet QID PRN PRN Administration DIARRHEA Potassium Chloride/Sodium Chloride 1,000 mls @ 100 mls/hr 05/30/22 02:14 06/05/22 02:54 Sodium Chloride 0.9% W/ 20 Meq Kcl/Liter IV 06/29/22 02:13 100 mls/hr .Q10H GERRI Administration Meropenem 1 gm/ Sodium 100 mls @ 200 mls/hr 05/30/22 14:00 06/05/22 06:12 Chloride IV 06/05/22 13:59 200 mls/hr Q8HT GERRI Administration Insulin Glargine 70 unit 06/01/22 22:00 06/04/22 22:01 Insulin Glargine 1 Unit SQ 07/01/22 21:59 70 unit HS GERRI Administration Insulin Human Lispro 0 unit 05/30/22 12:11 06/04/22 17:26 Insulin Lispro 1 Unit SQ 06/29/22 12:10 12 unit UD PRN Administration HYPERGLYCEMIA Metformin HCl 1,000 mg 05/30/22 18:00 06/04/22 17:10 Metformin Hcl Er 500 Mg Tab PO 06/29/22 17:59 1,000 mg EVENING MEAL GERRI Administration Ondansetron HCl 4 mg 05/30/22 02:14 05/30/22 21:34 Ondansetron Hcl 4 Mg/2 Ml Vial IV 06/29/22 02:13 4 mg Q6H PRN PRN Administration NAUSEA/VOMITING Pantoprazole Sodium 40 mg 06/03/22 10:00 06/04/22 11:23 Protonix (Pantoprazole) 40 Mg Tablet PO 07/03/22 09:59 Not Given DAILY GERRI Discontinued Medications Generic Name Dose Route Start Last Admin Trade Name Freq PRN Reason Stop Dose Admin Albuterol/Ipratropium 3 ml 05/30/22 02:14 Ipratropium/Albuterol Sulfate 3 Ml Ampul.Neb IH 06/29/22 02:13 Q6HRT [facility] Bumetanide 1 mg 06/05/22 10:00 Bumetanide 1 Mg Tablet PO 07/05/22 09:59 DAILY [facility] Bupivacaine HCl Confirm 06/04/22 06:53 Bupivacaine Hcl 2.5 Mg/Ml 10 Ml Administered 06/04/22 06:54 Dose 10 ml .ROUTE .STK-MED ONE Dexamethasone Sodium Phosphate Confirm 06/04/22 09:07 Dexamethasone Sod Phosphate 4 Mg/Ml Ml Administered 06/04/22 09:08 Dose 4 mg .ROUTE .STK-MED ONE Etomidate Confirm 06/04/22 09:21 Etomidate 20 Mg/10 Ml Amp Administered 06/04/22 09:22 Dose 20 mg IV .STK-MED ONE Famotidine 40 mg 06/04/22 08:30 06/04/22 08:46 Famotidine 20 Mg/1 Vial IV 06/04/22 08:31 40 mg 1HRPRIOR GERRI Administration Fentanyl Citrate Confirm 06/04/22 09:07 Fentanyl Citrate 100 Mcg/2 Ml* Vial Administered 06/04/22 09:08 Dose 100 mcg .ROUTE .STK-MED ONE Sodium Chloride 1,000 mls @ 999 mls/hr 05/29/22 23:37 05/29/22 23:44 Sodium Chloride 0.9% 1000 Ml IV 05/30/22 00:37 999 mls/hr .Q1H1M STA Administration Sodium Chloride Confirm 05/29/22 23:44 Sodium Chloride 0.9% 1000 Ml Administered 05/29/22 23:45 Dose 1,000 mls @ ud .ROUTE .STK-MED ONE Levofloxacin/Dextrose 750 mg in 150 mls @ 100 mls/hr 05/29/22 23:46 05/29/22 23:56 Levofloxacin 750mg/150ml D5w IV 05/30/22 01:15 100 ml/hr STAT STA 100 mls/hr Administration Levofloxacin/Dextrose Confirm 05/29/22 23:54 Levofloxacin 750mg/150ml D5w Administered 05/29/22 23:55 Dose 750 mg in 150 mls @ ud IV .STK-MED ONE Levofloxacin/Dextrose 500 mg in 100 mls @ 100 mls/hr 05/30/22 10:00 05/30/22 09:20 Levofloxacin 500mg/100ml D5w IV 06/29/22 09:59 100 mls/hr Q24H10 GERRI Administration Lactated Ringer's 1,000 mls @ 50 mls/hr 06/04/22 08:30 06/04/22 08:46 Lactated Ringers IV 06/05/22 04:29 50 mls/hr .Q20H GERRI Administration Clindamycin HCl/Dextrose 600 mg in 50 mls @ 100 mls/hr 06/04/22 08:30 06/04/22 08:46 Clindamycin-D5w 600 Mg/50 Ml IV 06/04/22 08:59 100 mls/hr ONCALLTOOR GERRI Administration Insulin Glargine 50 unit 05/30/22 12:12 05/30/22 13:27 Insulin Glargine 1 Unit SQ 05/30/22 12:13 50 unit ONCE ONE Administration Insulin Glargine 50 unit 05/30/22 22:00 05/31/22 22:10 Insulin Glargine 1 Unit SQ 06/29/22 21:59 50 unit HS GERRI Administration Insulin Human Lispro 0 unit 05/30/22 02:14 05/30/22 09:23 Insulin Lispro 1 Unit SQ 06/29/22 02:13 11 unit UD PRN Administration HYPERGLYCEMIA Lidocaine HCl Confirm 06/04/22 06:53 Lidocaine Hcl 1% 20 Ml Mdv 20 Ml Ml Administered 06/04/22 06:54 Dose 20 ml .ROUTE .STK-MED ONE Lidocaine HCl Confirm 06/04/22 09:03 Lidocaine - Mpf 2% 5 Ml Vial Administered 06/04/22 09:04 Dose 5 ml .ROUTE .STK-MED ONE Metoclopramide HCl 10 mg 06/04/22 08:30 06/04/22 08:45 Metoclopramide Hcl 10 Mg/2 Ml Vial IV 07/04/22 08:29 10 mg 1HRPRIOR GERRI Administration Morphine Sulfate 2 mg 05/30/22 02:14 Morphine Sulfate 2 Mg/Ml Inj IV 06/04/22 02:13 Q4H PRN PRN PAIN Non-Formulary Medication 1 each 05/30/22 12:08 Pharmacy Dosing Request 05/30/22 12:09 STAT ONE Ondansetron HCl 4 mg 05/29/22 22:18 05/29/22 22:30 Ondansetron Hcl 4 Mg/2 Ml Vial IV 05/29/22 22:19 4 mg STAT ONE Administration Ondansetron HCl Confirm 05/29/22 22:29 Ondansetron Hcl 4 Mg/2 Ml Vial Administered 05/29/22 22:30 Dose 4 mg .ROUTE .STK-MED ONE Ondansetron HCl Confirm 06/04/22 09:03 Ondansetron Hcl 4 Mg/2 Ml Vial Administered 06/04/22 09:04 Dose 4 mg .ROUTE .STK-MED ONE Pantoprazole Sodium 40 mg 05/30/22 10:00 06/02/22 10:00 Pantoprazole 40 Mg Vial IV 06/29/22 09:59 40 mg Q24H10 GERRI Administration Potassium Chloride 40 meq 06/02/22 06:43 06/02/22 06:51 Potassium Chloride Tab 10 Meq Tab PO 06/02/22 06:44 40 meq STAT ONE Administration Potassium Chloride Confirm 06/02/22 06:49 Potassium Chloride Tab 10 Meq Tab Administered 06/02/22 06:50 Dose 40 meq PO .STK-MED ONE Intake & Output (Last 24 hours) 06/02/22 06/03/22 06/04/22 06/05/22 11:59 11:59 11:59 11:59 Intake Total 1680 3795 3397 3370 Balance 1680 3795 3397 3370 Weight 101 kg 102.2 kg Microbiology Results (Last 24 hours) 06/04/22 10:16 Back - Not Known Aerobic Culture - Pending 06/04/22 10:16 Back - Not Known Aerobic Culture Result 1 - Final Not Reportable 06/04/22 10:16 Back - Not Known Aerobic Culture Result 2 - Final Not Reportable 06/04/22 10:16 Back - Not Known Aerobic Culture Result 3 - Final Not Reportable 06/04/22 10:16 Back - Not Known Aerobic Culture Result 4 - Final Not Reportable 06/04/22 10:16 Back - Not Known Aerobic Bacterial Sensitivity - Final Not Reportable 06/04/22 10:16 Back - Not Known Aerobic Organism ID Result 1 - Pending 06/04/22 10:16 Back - Not Known Anaerobic Culture - Pending 06/04/22 10:16 Back - Not Known Anaerobic Culture - Pending 06/04/22 10:16 Back - Not Known Anaerobic Culture Result 1 - Pending 06/04/22 10:16 Back - Not Known Anaerobic Culture Result 3 - Pending 06/04/22 10:16 Back - Not Known Anaerobic Culture Result 4 - Pending 06/04/22 10:16 Back - Not Known Anaerobic Bacterial Sensitivity - Pending 06/04/22 10:14 Neck - Not Known Aerobic Culture - Pending 06/04/22 10:14 Neck - Not Known Aerobic Culture Result 1 - Final Not Reportable 06/04/22 10:14 Neck - Not Known Aerobic Culture Result 2 - Final Not Reportable 06/04/22 10:14 Neck - Not Known Aerobic Culture Result 3 - Final Not Reportable 06/04/22 10:14 Neck - Not Known Aerobic Culture Result 4 - Final Not Reportable 06/04/22 10:14 Neck - Not Known Aerobic Bacterial Sensitivity - Final Not Reportable 06/04/22 10:14 Neck - Not Known Aerobic Organism ID Result 1 - Pending 06/04/22 10:14 Neck - Not Known Anaerobic Culture - Pending 06/04/22 10:14 Neck - Not Known Anaerobic Culture - Pending 06/04/22 10:14 Neck - Not Known Anaerobic Culture Result 1 - Pending 06/04/22 10:14 Neck - Not Known Anaerobic Culture Result 3 - Pending 06/04/22 10:14 Neck - Not Known Anaerobic Culture Result 4 - Pending 06/04/22 10:14 Neck - Not Known Anaerobic Bacterial Sensitivity - Pending Laboratory Results (Last 24 hours) 06/04/22 06/04/22 06/04/22 21:37 17:13 12:30 POC Glucometer 264 H 310 H 185 H 06/04/22 09:01 POC Glucometer 197 H Orders (Last 24 hours) Category Date Time Status 1800 Calorie Carbohydrate Diet [Consistent Carbohydrate Diet 06/04/22 Lunch Active Diet 1800 Calorie] Aerobic Culture [MR] Routine Lab 06/04/22 10:14 Received Aerobic Culture [MR] Routine Lab 06/04/22 10:16 Received Anaerobic Culture [MR] Routine Lab 06/04/22 10:14 Received Anaerobic Culture [MR] Routine Lab 06/04/22 10:16 Received POCT GLUCOSE Stat Lab 06/04/22 09:01 Completed POCT GLUCOSE Stat Lab 06/04/22 12:30 Completed POCT GLUCOSE Stat Lab 06/04/22 17:13 Completed POCT GLUCOSE Stat Lab 06/04/22 21:37 Completed Bumetanide 1 mg [Bumex 1 mg] Med 06/04/22 13:00 Active 1 mg PO DAILY Bumetanide 1 mg [Bumex 1 mg] Med 06/05/22 10:00 Discontinued 1 mg PO DAILY Bupivacaine HCl 0.25% 10 ml [Sensorcaine 0.25% 10 ML Med 06/04/22 06:53 Discontinued ] 10 ml .ROUTE .STK-MED ONE Clindamycin 600 mg/D5w 50 ml [Clindamycin-D5w 600 mg/ Med 06/04/22 08:30 Discontinued 50 ml] 600 mg in 50 ml IV ONCALLTOOR Dexamethasone 4 mg [Decadron 4 MG INJ] Med 06/04/22 09:07 Discontinued 4 mg .ROUTE .STK-MED ONE Etomidate 20 mg/10 ml [Amidate 20 MG/10 ML] Med 06/04/22 09:21 Discontinued 20 mg IV .STK-MED ONE Famotidine 20 mg Vial [Pepcid 20 MG VIAL] Med 06/04/22 08:30 Discontinued 40 mg IV 1HRPRIOR Fentanyl Citrate 100 Mcg/2 ml* [Sublimaze 100 Mcg/2 ml* Med 06/04/22 09:07 Discontinued ] 100 mcg .ROUTE .STK-MED ONE Lidocaine HCl 1% 20 ml Mdv [Xylocaine 1% HCl 20 ml Med 06/04/22 06:53 Discontinued Mdv] 20 ml .ROUTE .STK-MED ONE Lidocaine HCl 2% Mpf 5 ml [Xylocaine-Mpf 2% 5 Ml Med 06/04/22 09:03 Discontinued Vial] 5 ml .ROUTE .STK-MED ONE Metoclopramide HCl 10 mg/2 ml* [Reglan 10 MG/2 ML] Med 06/04/22 08:30 Discontinued 10 mg IV 1HRPRIOR Ondansetron HCl 4 mg/2 ml [Zofran 4 MG/2 ML VIAL] Med 06/04/22 09:03 Discontinued 4 mg .ROUTE .STK-MED ONE Ringers Solution,Lactated [Lactated Ringers] 1,000 ml Med 06/04/22 08:30 Discontinued IV 50 mls/hr PT Eval & Treat (MD Order) ONCE PT 06/04/22 15:14 Active Patient Care Notes (Last 24 hours) 06/04/22 16:00 (created 06/04/22 18:03) Nursing Note by Cat Moody Spoke with nurse at Dr. Carin Sparks's office for clarification on dressing changes. Nurse stated that Dr. Sparks usually wants I&D wound dressing changes done wet to dry daily with iodiform or betadine. Dr. Sparks is in surgery today, but nurse will relay message to him to call with dressing change order. Initialized on 06/04/22 18:03 - END OF NOTE 06/04/22 11:55 Nursing Note by Radha Dhaliwal Patient is back to floor from the O.R. Initialized on 06/04/22 11:55 - END OF NOTE 06/04/22 11:01 Case Management Note by Jud Kurtz CALLED [facility] TO CHECK ON STATUS OF REFERRAL- NO ANSWER AT THIS TIME- LM Initialized on 06/04/22 11:01 - END OF NOTE 06/04/22 09:30 (created 06/04/22 09:39) Nursing Note by Cat Moody Pre-op hand-off done. Patient transported to OR Initialized on 06/04/22 09:39 - END OF NOTE 06/04/22 09:15 (created 06/04/22 09:37) Nursing Note by Cat Moody Dr. to see pt. MD removed bandages from BLE's to assess leg wounds. Zinc cream applied to bilat legs and redressed with gauze fluff roll x 2. Initialized on 06/04/22 09:37 - END OF NOTE 06/04/22 08:10 (created 06/04/22 09:36) Nursing Note by Cat Moody Order for antibiotic operations vice president to OR for Clindamyacin 600mg IV received from Dr. Carin Sparks Initialized on 06/04/22 09:36 - END OF NOTE Code(s): T14.8XXA - OTHER INJURY OF UNSPECIFIED BODY REGION, INITIAL ENCOUNTER (2) Uncontrolled diabetes mellitus Current Visit: Yes Status: Acute Qualifiers: Diabetes mellitus type: type 2 Glycemic state: with hyperglycemia Qualified Code(s): E11.65 - Type 2 diabetes mellitus with hyperglycemia Code(s): PAW9943 - (3) Acute UTI Current Visit: Yes Status: Resolved Code(s): N39.0 - URINARY TRACT INFECTION, SITE NOT SPECIFIED (4) Gall stone Current Visit: Yes Status: Chronic Qualifiers: Cholecystitis presence: without cholecystitis Code(s): K80.20 - CALCULUS OF GALLBLADDER W/O CHOLECYSTITIS W/O OBSTRUCTION (5) Renal stones Current Visit: Yes Status: Chronic
[2022-06-05] MEDS: Protonix 40MG Tablet PO SCH (08:23)
[2022-06-05] MEDS: BUMEX 1 MG PO SCH (08:23)
[2022-06-05] MEDS ORDERED: BUMEX 1 MG PO SCH (10:00)
[2022-06-05] MEDS: TYLENOL 325 MG PO PRN (10:16)
[2022-06-05 11:47] LABS: Hematocrit 40.2 % (42-50); Hemoglobin 12.8 g/dL (12.5-18.0); Mean Cell Volume 82.2 fL (78-100); Mean Corpuscular Hemoglobin 26.2 pg (26-32); Mean Corpuscular Hgb Concent. 31.8 g/dL (32-36); Mean Platelet Volume 9.7 fL (7.5-11.0); Platelet Count 356 x10^3/uL (150-450); Red Blood Count 4.89 x10^6/uL (4.1-5.6); Red Cell Distribution Width 13.8 % (11.5-14.0)
[2022-06-05 11:53] LABS: ALBUMIN 2.5 g/dL (3.5-5.0); ALKALINE PHOSPHATASE 106 U/L (38-126); ANION GAP 8.4 MEQ/L (5-15); BLOOD UREA NITROGEN 9 mg/dL (9-20); CHLORIDE 99 mmol/L (98-107); Calcium 7.5 mg/dL (8.4-10.2); Carbon Dioxide 34 mmol/L (22-30); Creatinine 1 0.36 mg/dL (0.66-1.25); EST GLOMERULAR FILTRATION RATE > 60.0 ML/MIN; Glucose 188 mg/dL (74-106); Potassium 3.4 mmol/L (3.5-5.1); SGOT/AST 19 U/L (17-59); SGPT/ALT 16 U/L (0-50); SODIUM 138 mmol/L (137-145); Total Protein 5.7 g/dL (6.3-8.2)
[2022-06-05] MEDS: Zestril 10 MG PO SCH (12:51)
[2022-06-05] MEDS: HUMALOG SQ PRN ×2 (12:51→21:52)
[2022-06-05] MEDS: Lopressor 25MG Tab PO SCH ×2 (12:51→21:53)
[2022-06-05] MEDS: Glucophage XR 500 MG PO SCH (17:53)
[2022-06-05] MEDS: NORCO 5/325 MG PO PRN ×2 (17:54→21:52)
[2022-06-05] MEDS: Lantus Insulin SQ SCH (21:52)
[2022-06-06] MEDS: Lomotil PO PRN ×2 (02:27→06:02)
[2022-06-06] MEDS: NORCO 5/325 MG PO PRN (04:44)
[2022-06-06 04:47] LABS: Hematocrit 43.2 % (42-50); Hemoglobin 13.5 g/dL (12.5-18.0); Mean Cell Volume 83.4 fL (78-100); Mean Corpuscular Hemoglobin 26.1 pg (26-32); Mean Corpuscular Hgb Concent. 31.3 g/dL (32-36); Mean Platelet Volume 9.4 fL (7.5-11.0); Platelet Count 484 x10^3/uL (150-450); Red Blood Count 5.18 x10^6/uL (4.1-5.6); Red Cell Distribution Width 13.8 % (11.5-14.0); White Blood Count 14.1 x10^3/uL (4.0-10.5)
[2022-06-06] MEDS: Merrem 1 GM in Sodium Chloride 100ML MINI-BAG PLUS 100 ML IV SCH ×2 (05:25→16:21)
[2022-06-06 07:08] LABS: ALBUMIN 2.5 g/dL (3.5-5.0); ALKALINE PHOSPHATASE 105 U/L (38-126); ANION GAP 8.5 MEQ/L (5-15); BLOOD UREA NITROGEN 10 mg/dL (9-20); CHLORIDE 99 mmol/L (98-107); Calcium 7.6 mg/dL (8.4-10.2); Carbon Dioxide 32 mmol/L (22-30); Creatinine 1 0.32 mg/dL (0.66-1.25); EST GLOMERULAR FILTRATION RATE > 60.0 ML/MIN; Glucose 90 mg/dL (74-106); Potassium 3.3 mmol/L (3.5-5.1); SGOT/AST 33 U/L (17-59); SGPT/ALT 19 U/L (0-50); SODIUM 136 mmol/L (137-145); Total Protein 5.6 g/dL (6.3-8.2)
[2022-06-06] MEDS ORDERED: Sodium Chloride 0.9% 1000 ML 1,000 ML IV SCH ×2 (08:00→11:30)
[2022-06-06] MEDS ORDERED: Lanoxin 0.5 MG/2 ML INJECTION IV SCH ×2 (09:00→15:00)
[2022-06-06] MEDS ORDERED: Cordarone 150 MG/3 ML Injection*** 150 MG in D5w 100ML Mini Bag 100 ML 100 ML IV SCH (09:30)
[2022-06-06] MEDS: NEXTERONE 360 MG/200 ML BAG 360 MG/200 ML PLAST..BAG IV SCH ×2 (09:59→16:12)
[2022-06-06] MEDS ORDERED: ENOXAPARIN SODIUM SQ SCH (10:00)
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
[2022-06-06] MEDS ORDERED: K-LYTE PO ONE (10:48)
[2022-06-06] MEDS ORDERED: Magnesium 1 Gm / 100 Ml D5W*** 100 ML IV ONE (10:49)
[2022-06-06] MEDS: Protonix 40MG Tablet PO SCH (10:57)
[2022-06-06] MEDS: BUMEX 1 MG PO SCH (11:06)
[2022-06-06] MEDS: Zestril 10 MG PO SCH (11:07)
[2022-06-06] MEDS: Lopressor 25MG Tab PO SCH (11:07)
[2022-06-06 15:44] VITALS: O2SAT 97
[2022-06-06] MEDS: Glucophage XR 500 MG PO SCH (17:39)
[2022-06-06 18:05] VITALS: BP 105/61; PULSE 83
[2022-06-06] MEDS ORDERED: MAG-OX 400 PO SCH (22:00)
--- NOTE | 2022-06-08 10:00 | OP ---
SURGERY DATE/TIME: 06/04/2022 0934 PREOPERATIVE DIAGNOSIS: Back and neck abscess. POSTOPERATIVE DIAGNOSIS: Back and neck necrotizing soft tissue infection. PROCEDURES: 1) Incision and debridement of necrotizing soft tissue infection of the right upper back measuring 20 x 20 cm. 2) Incision and debridement of necrotizing soft tissue infection of posterior neck measuring 15 x 5 cm. SURGEON: Anibal Sparks M.D. ANESTHESIA: General. ESTIMATED BLOOD LOSS: Minimal. PATIENT CONDITION: Stable. COMPLICATIONS: None. SPECIMEN: Swab for culture of the right back abscess and the neck abscess. HISTORY: The patient is a 57-year-old male admitted to the hospital with cellulitis of the right upper back and posterior neck that developed fluctuance and started draining at one of the locations. He remained hemodynamically stable. The patient was taken to the OR for debridement. Discussed with the patient the risk of open wound, prolonged need for ongoing wound care. FINDINGS: As below. DESCRIPTION OF PROCEDURE: The patient was brought to operating room. General anesthesia induced. He was routinely positioned left side down, appropriately padded. Routinely prepped and draped. Received antibiotics as scheduled. Time out performed. The right upper back lesion does have an area with necrotic or attenuated skin and is just starting to drain so this is incised and then the sac was digitized. This was actually quite more extensive than on the digital and physical exam, at its sac in the subcutaneous space down to the fascia. The fascia is not adversely involved. It really appears to be necrotic subcutaneous fat and just limited area of skin but this tracts up superior to the shoulder and then extends medial and then laterally. The measurement is 20 x 20 cm. This is extensively freed up, irrigated out. The necrotic subcutaneous fat is debrided with a combination of sharp debridement with a scalpel and curettes. At that point the circumferentially viable and satisfactory. The posterior neck wound was incised and there was hermila pus expressed. Both of the abscesses had been swabbed and cultured. The neck wound is digitized. The measurements are as above but this also extends in the subcutaneous space with a small amount of subcutaneous necrotic fat which is sharply debrided with scalpel and also curetted. This extends in the subcutaneous space. It does not violate the fascia. A counter incision is made on the left side and a vessel loop of the loop drain. The wound is copiously irrigated out and then there is good hemostasis. It is packed with 2 inch Kerlix. Sterile dressing applied. On the right shoulder and right back, a counter incision is made and a loop Antonio drain is left in the loop drain to maintain the tract. It is then packed with Kerlix and sterile dressing applied. All counts were correct. The patient tolerated the procedure well. He was extubated and taken to the recovery room in stable condition.
== END 2022-06-06 18:28 | disposition home or self-care (01) | DRG 308 ==
LOC: ED 22:02 → MED SURG 05-30 02:09 → OBSVTOIN 05-30 13:53 → ICU 06-06 09:11
PROVIDERS: ADMIT General Practice; ATTEND General Practice
PROC: 0H96XZZ Drainage of Back Skin, External Approach (ICD-10-PCS; principal; 2022-06-04)
PROC: 0H94XZZ Drainage of Neck Skin, External Approach (ICD-10-PCS; 2022-06-04)
DX: I48.91 Unspecified atrial fibrillation (principal); A41.9 Sepsis, unspecified organism; N39.0 Urinary tract infection, site not specified; L02.212 Cutaneous abscess of back [any part, except buttock and flank]; L02.11 Cutaneous abscess of neck; R07.9 Chest pain, unspecified; R19.7 Diarrhea, unspecified; E87.6 Hypokalemia; E83.42 Hypomagnesemia; F32.9 Major depressive disorder, single episode, unspecified; I10 Essential (primary) hypertension; E78.5 Hyperlipidemia, unspecified; G62.9 Polyneuropathy, unspecified; I87.2 Venous insufficiency (chronic) (peripheral); E11.65 Type 2 diabetes mellitus with hyperglycemia; K80.20 Calculus of gallbladder without cholecystitis without obstruction; N20.0 Calculus of kidney; Z65.9 Problem related to unspecified psychosocial circumstances; R29.898 Other symptoms and signs involving the musculoskeletal system; B35.1 Tinea unguium; Z20.828 Contact with and (suspected) exposure to other viral communicable diseases
CPT/HCPCS: 00300; 00400; 0241U; 10061; 11721; 29580; 36000; 36415; 71045; 74176; 76937; 80053; 81015; 82805; 82947; 83036; 83605; 83690; 83735; 83880; 84145; 84443; 84484; 85025; 85027; 87040; 87070; 87075; 87086; 93005; 93970; 96360; 96365; 96374; 97110; 97162; 97530; 97597; 97598; 99223; 99233; 99285; 90791; 96375; J0282; J1100; J1650; J1817; J1956; J2405; J3010; J3475; Q3014; A9270-GY

== ENCOUNTER 2023-02-05 14:30 | Emergency (ER) | payer OTHER ==
[2023-02-05] MEDS ORDERED: Sodium Chloride 0.9% 1000 ML 1,000 ML IV SCH (14:45)
[2023-02-05 14:49] LABS: Absolute Neutrophil Ct (ANC) 5.55 x10^3/uL (1.4-6.9); BASOPHIL % 0.6 % (0.0-0.4); Basophil (Absolute #) 0.05 x10^3/uL (0-0.4); Eosinophil % 2.3 % (0.00-5.0); Eosinophil (Absolute #) 0.18 x10^3/uL (0-0.5); Hematocrit 44.6 % (42-50); Hemoglobin 14.1 g/dL (12.5-18.0); IMMATURE GRAN # 0.03 x10^3u/L (0.00-0.03); IMMATURE GRAN % 0.4 % (0.00-0.4); Lymphocyte (Absolute #) 1.42 x10^3/uL (1.0-4.6); Lymphocytes % 18.3 % (24.0-44.0); Mean Cell Volume 84.8 fL (78-100); Mean Corpuscular Hemoglobin 26.8 pg (26-32); Mean Corpuscular Hgb Concent. 31.6 g/dL (32-36); Mean Platelet Volume 10.3 fL (7.5-11.0); Monocyte (Absolute #) 0.52 x10^3/uL (0.0-1.3); Monocytes % 6.7 % (0.0-12.0); Neutrophil % 71.7 % (36.0-66.0); Platelet Count 257 x10^3/uL (150-450); Red Blood Count 5.26 x10^6/uL (4.1-5.6); Red Cell Distribution Width 12.6 % (11.5-14.0); White Blood Count 7.8 x10^3/uL (4.0-10.5)
[2023-02-05] MEDS ORDERED: Sodium Chloride 0.9% 1000 ML 1,000 ML ONE (14:51)
[2023-02-05 15:01] LABS: Erythrocyte Sedimentation Rate 50 mm/hr (0-15)
--- NOTE | 2023-02-05 15:02 | XRAY ---
Indication: Chest pain. Comparison: June 03, 2022 Portable chest remain inflated and clear. Heart not enlarged. Bony thorax intact again with mild degenerative changes. Impression: Continued nonacute one view chest.
--- NOTE | 2023-02-05 15:09 | ERPHSYRPT ---
- History of Present Illness Time Seen by Provider: 02/05/23 14:40 Historian: patient Exam Limitations: no limitations Patient Subjective Stated Complaint: Chest pain Triage Nursing Assessment: Patient ambulated back to ED and transferred self to bed. Patient A+O X 3. Patient's skin pink, warm and dry. Patient compains of intermittent chest pain to left side of chest that radiated down left arm since last night around 11pm. Patient states the pain will usually go away, but today it was steady. Patient currently denies pain or discomfort. Patient denies N/V. Patient states he feels flushed. Physician History: Patient is a 57-year-old male who presents with a complaint of chest pain on and off for several weeks. Last night the chest pain started at 11 PM and lasted through the night till this morning. The left chest pain radiates down the left arm and into the right chest. He denies any nausea or shortness of breath he has been somewhat clammy he has an ulcer on his left anterior chest and the posterior neck of some duration treated at a wound clinic in [place] by Dr. Christie. He also has a left rotator cuff tear. He wonders if the chest pain could be related to the rotator cuff. Timing/Duration: week(s) (Several) Activities at Onset: none Quality: fullness, stabbing Location: substernal Chest Pain Radiation: arm (Left) Severity of Pain-Max: none Severity of Pain-Current: none Modifying Factors: Improves With: nothing Associated Symptoms: No nausea, No vomiting, No shortness of breath Prior Chest Pain/Cardiac Workup: no prior chest pain Nitro Today/Relief: no nitro taken today Aspirin Treatment Today: 81 mg x 4 Allergies/Adverse Reactions: Penicillins Allergy (Verified 02/05/23 14:33) Sulfa (Sulfonamide Antibiotics) Allergy (Verified 02/05/23 14:33) Home Medications: Amiodarone HCl 200 mg [Cordarone 200 MG] 200 mg PO DAILY 02/05/23 [History] Cephalexin Mh 250 mg [Keflex 250 mg] 250 mg PO QID 02/05/23 [History] Dapagliflozin Propanediol [Farxiga] 10 mg PO DAILY 02/05/23 [History] Ergocalciferol (Vitamin D2) [Vitamin D2] 1,250 mcg PO UD 02/05/23 [History] Gentamicin Sulfate Ointment [Garamycin Ointment 15 gm] 1 gm TOP UD 02/05/23 [History] Insulin Glargine,Hum.rec.anlog [Basaglar Kwikpen U-100] 35 unit SQ BID 02/05/23 [History] Insulin Lispro [Insulin Lispro Kwikpen U-100] 35 unit SQ BID 02/05/23 [History] Metoprolol Tartrate 25 mg [Lopressor 25MG Tab] 25 mg PO BID 02/05/23 [History] Rivaroxaban [Xarelto] 20 mg PO DAILY 02/05/23 [History] Torsemide 20 mg [Demadex 20 mg] 20 mg PO DAILY 02/05/23 [History] Hx Tetanus, Diphtheria Vaccination/Date Given: Yes Hx Influenza Vaccination/Date Given: No Hx Pneumococcal Vaccination/Date Given: No Immunizations Up to Date: Yes Travel Risk - International Travel Have you traveled outside of the country in past 3 weeks: No - Coronavirus Screening Are you exhibiting any of the following symptoms?: No Close contact with a COVID-19 positive Pt in past 14-21 Days: No - Vaccine Status Have you recieved a Covid-19 vaccination: Yes Consumer Marketing Specialist: Moderna - Vaccination Dates Date of 2cond Vaccination (if applicable): UNKNOWN - Review of Systems Constitutional: No Fever, No Chills Eyes: No Symptoms Ears, Nose, & Throat: No Symptoms Respiratory: No Cough, No Dyspnea Cardiac: Chest Pain, No Edema, No Syncope Abdominal/Gastrointestinal: No Abdominal Pain, No Nausea, No Vomiting, No Diarrhea Genitourinary Symptoms: No Dysuria Musculoskeletal: Joint Pain, No Back Pain, No Neck Pain Skin: No Rash Neurological: No Dizziness, No Focal Weakness, No Sensory Changes Psychological: No Symptoms Endocrine: No Symptoms All Other Systems: Reviewed and Negative - Past Medical History Pertinent Past Medical History: Yes Neurological History: No Pertinent History ENT History: No Pertinent History Cardiac History: No Pertinent History Respiratory History: No Pertinent History Endocrine Medical History: Diabetes Type II Musculoskeletal History: No Pertinent History GI Medical History: No Pertinent History History: No Pertinent History Psycho-Social History: No Pertinent History Male Reproductive Disorders: No Pertinent History - Past Surgical History Past Surgical History: No Neuro Surgical History: No Pertinent History Cardiac: No Pertinent History Respiratory: No Pertinent History Gastrointestinal: No Pertinent History Genitourinary: No Pertinent History Musculoskeletal: No Pertinent History Male Surgical History: No Pertinent History - Social History Smoking Status: Never smoker Exposure to second hand smoke: No Drug Use: none Patient Lives Alone: Yes - Nursing Vital Signs Nursing Vital Signs: Initial Vital Signs Temperature 97.8 F 02/05/23 14:36 Pulse Rate 72 02/05/23 14:36 Respiratory Rate 20 02/05/23 14:36 Blood Pressure 160/85 02/05/23 14:36 O2 Sat by Pulse Oximetry 99 02/05/23 14:36 Pain Scale Pain Intensity 0 - Physical Exam General Appearance: mild distress, alert Eye Exam: PERRL/EOMI, eyes nml inspection Ears, Nose, Throat Exam: normal ENT inspection, moist mucous membranes Neck Exam: normal inspection, non-tender, supple, full range of motion Respiratory Exam: normal breath sounds, lungs clear, No respiratory distress Cardiovascular Exam: regular rate/rhythm, normal heart sounds Gastrointestinal/Abdomen Exam: soft, No tenderness, No mass Back Exam: normal inspection, No CVA tenderness, No vertebral tenderness Extremity Exam: normal inspection, normal range of motion Neurologic Exam: alert, oriented x 3, cooperative, normal mood/affect, sensation nml, No motor deficits Skin Exam: normal color, warm, dry, other (Skin ulcers left upper anterior chest and posterior neck) SpO2 Interpretation: normal SpO2: 99 O2 Delivery: Room Air - Course Nursing assessment & vital signs reviewed: Yes EKG Interpreted by Me: RATE (75), Sinus Rhythm, NORMAL AXIS, NORMAL QRS, Non- specific ST Changes - Radiology Exams Chest X-ray Interpretation: Reviewed by me, Negative Ordered Tests: Active Orders 24 hr Category Date Time Status Painter Structural Steel STAT Care 02/05/23 14:44 Active EKG-ER Only STAT Care 02/05/23 14:38 Active IV Insertion STAT Care 02/05/23 14:38 Active CHEST 1 VIEW (PORTABLE) Stat Exams 02/05/23 14:39 Completed AMYLASE Stat Lab 02/05/23 14:40 Completed CBC W DIFF Stat Lab 02/05/23 14:40 Completed CMP Stat Lab 02/05/23 14:40 Completed D-DIMER QUANTITATIVE Stat Lab 02/05/23 14:40 Completed Erythrocyte Sedimentation Rate Stat Lab 02/05/23 14:40 Completed LIPASE Stat Lab 02/05/23 14:40 Completed Lactic Acid Stat Lab 02/05/23 14:38 Completed MAGNESIUM Stat Lab 02/05/23 14:40 Completed NT PRO BNPII Stat Lab 02/05/23 14:40 Completed PROTIME WITH INR Stat Lab 02/05/23 14:40 Completed PTT Stat Lab 02/05/23 14:40 Completed TROPONIN Q4H Lab 02/05/23 14:40 Completed TROPONIN Q4H Lab 02/05/23 18:45 Ordered TROPONIN Q4H Lab 02/05/23 22:45 Ordered UA W/RFX UR CULTURE Stat Lab 02/05/23 14:39 Ordered Urine Triage Profile Stat Lab 02/05/23 14:39 Ordered Medication Summary Generic Name Dose Route Start Last Admin Trade Name Freq PRN Reason Stop Dose Admin Sodium Chloride 1,000 mls @ 100 mls/hr 02/05/23 14:45 02/05/23 14:53 Sodium Chloride 0.9% 1000 Ml IV 03/07/23 14:44 100 mls/hr .Q10H GERRI Administration Discontinued Medications Generic Name Dose Route Start Last Admin Trade Name Freq PRN Reason Stop Dose Admin Aspirin 324 mg 02/05/23 15:17 02/05/23 15:21 Aspirin 81 Mg Tab.Chew PO 02/05/23 15:18 324 mg STAT ONE Administration Aspirin Confirm 02/05/23 15:21 Aspirin 81 Mg Tab.Chew Administered 02/05/23 15:22 Dose 324 mg .ROUTE .STK-MED ONE Lab/Rad Data: Laboratory Result Diagrams 02/05/23 14:40 02/05/23 14:40 Laboratory Results 02/05/23 02/05/23 02/05/23 Range/Units 14:40 14:40 14:40 WBC (4.0-10.5) x10^3/uL RBC (4.1-5.6) x10^6/uL Hgb (12.5-18.0) g/dL Hct (42-50) % MCV (78-100) fL MCH (26-32) pg MCHC (32-36) g/dL RDW (11.5-14.0) % Plt Count (150-450) x10^3/uL MPV (7.5-11.0) fL Gran % (36.0-66.0) % Immature Gran % (Auto) (0.00-0.4) % Nucleat RBC Rel Count (0.00-0.1) % Eos # (Auto) (0-0.5) x10^3/uL Immature Gran # (Auto) (0.00-0.03) x10^3u/L Absolute Lymphs (auto) (1.0-4.6) x10^3/uL Absolute Monos (auto) (0.0-1.3) x10^3/uL Absolute Nucleated RBC (0.00-0.01) x10^3u/L Lymphocytes % (24.0-44.0) % Monocytes % (0.0-12.0) % Eosinophils % (0.00-5.0) % Basophils % (0.0-0.4) % Absolute Granulocytes (1.4-6.9) x10^3/uL Basophils # (0-0.4) x10^3/uL ESR (0-15) mm/hr PT 9.9 (9.4-12.5) SECONDS INR 0.90 (0.8-3.0) APTT 25.4 (25.1-36.5) SECONDS D-Dimer 0.54 H (0.0-0.50) mg/L Sodium 137 (137-145) mmol/L Potassium 4.4 (3.5-5.1) mmol/L Chloride 94 L (98-107) mmol/L Carbon Dioxide 35 H (22-30) mmol/L Anion Gap 12.9 (5-15) MEQ/L BUN 12 (9-20) mg/dL Creatinine 0.64 L (0.66-1.25) mg/dL Estimated GFR > 60.0 ML/MIN Glucose 320 H (74-106) mg/dL Lactic Acid (0.4-2.0) Calcium 8.6 (8.4-10.2) mg/dL Magnesium 1.7 (1.6-2.3) mg/dL Total Bilirubin 0.40 (0.2-1.3) mg/dL AST 18 (17-59) U/L ALT 19 (0-50) U/L Alkaline Phosphatase 93 (38-126) U/L Troponin I < 0.012 (0.000-0.034) ng/mL NT-Pro-B Natriuret Pep 45.8 (<300) pg/mL Serum Total Protein 7.0 (6.3-8.2) g/dL Albumin 3.6 (3.5-5.0) g/dL Amylase 43 (30-110) U/L Lipase 36 (23-300) U/L 02/05/23 02/05/23 Range/Units 14:40 14:38 WBC 7.8 (4.0-10.5) x10^3/uL RBC 5.26 (4.1-5.6) x10^6/uL Hgb 14.1 (12.5-18.0) g/dL Hct 44.6 (42-50) % MCV 84.8 (78-100) fL MCH 26.8 (26-32) pg MCHC 31.6 L (32-36) g/dL RDW 12.6 (11.5-14.0) % Plt Count 257 (150-450) x10^3/uL MPV 10.3 (7.5-11.0) fL Gran % 71.7 H (36.0-66.0) % Immature Gran % (Auto) 0.4 (0.00-0.4) % Nucleat RBC Rel Count 0.0 (0.00-0.1) % Eos # (Auto) 0.18 (0-0.5) x10^3/uL Immature Gran # (Auto) 0.03 (0.00-0.03) x10^3u/L Absolute Lymphs (auto) 1.42 (1.0-4.6) x10^3/uL Absolute Monos (auto) 0.52 (0.0-1.3) x10^3/uL Absolute Nucleated RBC 0.00 (0.00-0.01) x10^3u/L Lymphocytes % 18.3 L (24.0-44.0) % Monocytes % 6.7 (0.0-12.0) % Eosinophils % 2.3 (0.00-5.0) % Basophils % 0.6 (0.0-0.4) % Absolute Granulocytes 5.55 (1.4-6.9) x10^3/uL Basophils # 0.05 (0-0.4) x10^3/uL ESR 50 H (0-15) mm/hr PT (9.4-12.5) SECONDS INR (0.8-3.0) APTT (25.1-36.5) SECONDS D-Dimer (0.0-0.50) mg/L Sodium (137-145) mmol/L Potassium (3.5-5.1) mmol/L Chloride (98-107) mmol/L Carbon Dioxide (22-30) mmol/L Anion Gap (5-15) MEQ/L BUN (9-20) mg/dL Creatinine (0.66-1.25) mg/dL Estimated GFR ML/MIN Glucose (74-106) mg/dL Lactic Acid 2.9 H (0.4-2.0) Calcium (8.4-10.2) mg/dL Magnesium (1.6-2.3) mg/dL Total Bilirubin (0.2-1.3) mg/dL AST (17-59) U/L ALT (0-50) U/L Alkaline Phosphatase (38-126) U/L Troponin I (0.000-0.034) ng/mL NT-Pro-B Natriuret Pep (<300) pg/mL Serum Total Protein (6.3-8.2) g/dL Albumin (3.5-5.0) g/dL Amylase (30-110) U/L Lipase (23-300) U/L - Progress Air Movement: good Blood Culture(s) Obtained: No Antibiotics given: No Medical Desision Making - Diagnostic Testing Diagnostic test were ordered, analyzed, and reviewed by me: Yes Radiological Interpretation: Reviewed by me - Risk of complications Low Risk: Low risk of morbidity from additional dx testing or treatment - Departure Departure Disposition: Home Clinical Impression: Atypical chest pain Condition: Stable Critical Care Time: No Referrals: EVA ODELL CONFIGURATION MANAGEMENT SPECIALIST [Primary Care Provider] - Follow up/PCP as directed Instructions: Chest Pain (DC)
[2023-02-05 15:10] LABS: D-DIMER QUANTITATIVE 0.54 mg/L (0.0-0.50); INR 0.9 (0.8-3.0); PROTIME 9.9 SECONDS (9.4-12.5); PTT 25.4 SECONDS (25.1-36.5)
[2023-02-05] MEDS ORDERED: BABY ASPIRIN 81 MG CHEW PO ONE (15:17)
[2023-02-05] MEDS ORDERED: BABY ASPIRIN 81 MG CHEW ONE (15:21)
[2023-02-05 15:26] LABS: NT PRO BNPII 45.8 pg/mL (<300); TROPONIN < 0.012 ng/mL (0.000-0.034)
[2023-02-05 15:49] LABS: ALBUMIN 3.6 g/dL (3.5-5.0); ALKALINE PHOSPHATASE 93 U/L (38-126); AMYLASE 43 U/L (30-110); ANION GAP 12.9 MEQ/L (5-15); BLOOD UREA NITROGEN 12 mg/dL (9-20); CHLORIDE 94 mmol/L (98-107); Calcium 8.6 mg/dL (8.4-10.2); Carbon Dioxide 35 mmol/L (22-30); Creatinine 1 0.64 mg/dL (0.66-1.25); EST GLOMERULAR FILTRATION RATE > 60.0 ML/MIN; Glucose 320 mg/dL (74-106); LIPASE 36 U/L (23-300); MAGNESIUM 1.7 mg/dL (1.6-2.3); Potassium 4.4 mmol/L (3.5-5.1); SGOT/AST 18 U/L (17-59); SGPT/ALT 19 U/L (0-50); SODIUM 137 mmol/L (137-145)
[2023-02-05 16:05] VITALS: BP 151/86; PULSE 66
[2023-02-05 16:06] VITALS: O2SAT 99
== END 2023-02-05 16:10 | disposition home or self-care (01) ==
LOC: ED 14:30
DX: R07.9 Chest pain, unspecified (principal); E11.9 Type 2 diabetes mellitus without complications; Z79.01 Long term (current) use of anticoagulants; Z79.899 Other long term (current) drug therapy; Z20.828 Contact with and (suspected) exposure to other viral communicable diseases
CPT/HCPCS: 36000; 36415; 71045; 80053; 82150; 83605; 83690; 83735; 83880; 84484; 85025; 85379; 85610; 85652; 85730; 93005; 93041; 99284; A9270-GY

== ENCOUNTER 2023-10-18 13:34 | Emergency (ER) | payer OTHER ==
[2023-10-18] MEDS ORDERED: BABY ASPIRIN 81 MG CHEW PO ONE (13:42)
[2023-10-18] MEDS ORDERED: BABY ASPIRIN 81 MG CHEW ONE (13:49)
[2023-10-18 13:55] LABS: Absolute Neutrophil Ct (ANC) 6.44 x10^3/uL (1.4-6.9); BASOPHIL % 0.5 % (0.0-0.4); Basophil (Absolute #) 0.04 x10^3/uL (0-0.4); Eosinophil % 3.9 % (0.00-5.0); Eosinophil (Absolute #) 0.34 x10^3/uL (0-0.5); Hematocrit 40.3 % (42-50); Hemoglobin 11.6 g/dL (12.5-18.0); IMMATURE GRAN # 0.03 x10^3u/L (0.00-0.03); IMMATURE GRAN % 0.3 % (0.00-0.4); Lymphocytes % 13.9 % (24.0-44.0); Mean Cell Volume 79.2 fL (78-100); Mean Corpuscular Hemoglobin 22.8 pg (26-32); Mean Corpuscular Hgb Concent. 28.8 g/dL (32-36); Mean Platelet Volume 10.6 fL (7.5-11.0); Monocytes % 6.9 % (0.0-12.0); Neutrophil % 74.5 % (36.0-66.0); Platelet Count 301 x10^3/uL (150-450); Red Blood Count 5.09 x10^6/uL (4.1-5.6); Red Cell Distribution Width 16.3 % (11.5-14.0); White Blood Count 8.7 x10^3/uL (4.0-10.5)
[2023-10-18 13:57] VITALS: BP 160/79; TEMP 97.6
--- NOTE | 2023-10-18 14:07 | XRAY ---
Indication: Chest pain. Comparison: February 05, 2023 Portable chest sightly rotated and sidebent now demonstrates subtle hazy right base infiltrate/atelectasis. Heart now enlarged. Bony thorax intact again with mild degenerative changes and minimal levoscoliosis.
[2023-10-18 14:12] LABS: ALBUMIN 3.9 g/dL (3.5-5.0); BILIRUBIN,TOTAL 0.4 mg/dL (0.2-1.3); Calcium 9.4 mg/dL (8.4-10.2); Creatinine 1 0.66 mg/dL (0.66-1.25); EST GLOMERULAR FILTRATION RATE 108.1 ML/MIN; Potassium 4.1 mmol/L (3.5-5.1); Total Protein 7.6 g/dL (6.3-8.2)
[2023-10-18] MEDS ORDERED: Sodium Chloride 0.9% 500 ML 500 ML IV ONE ×2 (14:27→15:10)
[2023-10-18 14:30] LABS: Slide Review 1 YES
--- NOTE | 2023-10-18 14:30 | ERPHSYRPT ---
- History of Present Illness Time Seen by Provider: 10/18/23 13:45 Historian: patient Exam Limitations: no limitations Patient Subjective Stated Complaint: pt c/o of right sided chest pain since Wednesday Triage Nursing Assessment: Pt brought self to the ER, hypertensive, rates pain as 0.5-1/10, pt states that his liver is upside down and on the reverse side, gall bladder is on the reverse side and his colon starts on the opposite side, pt states that he began having pain down in lacey legs on Wednesday and by evening it had moved up to his left chest, pt's heart is on the correct side, hx of a- fib and is in it today, tremors which he states is normal, pulses normal, skin n/w/d, doesn't appear to be in any distress Physician History: This a 58-year-old white male patient who noticed chest pain 2 days ago. The pain seemed to start in his legs and then move up into his chest bilaterally. Patient has history of situs inversus. His intrathoracic organs are in normal anatomic position. Patient has a history of atrial fibrillation on amiodarone. He is an insulin-dependent diabetic. Patient has chronic tremors. Patient has not noticed a fever. He has no new shortness of breath symptoms. He has no abdominal pain. He has not noticed any nausea vomiting or diarrhea symptoms. Activities at Onset: none Quality: pressure Location: other Severity of Pain-Max: mild (Bilateral chest) Severity of Pain-Current: mild Associated Symptoms: denies symptoms Nitro Today/Relief: no nitro taken today Aspirin Treatment Today: no aspirin today Allergies/Adverse Reactions: Penicillins Allergy (Verified 10/18/23 13:57) Sulfa (Sulfonamide Antibiotics) Allergy (Verified 10/18/23 13:57) Home Medications: Amiodarone HCl 200 mg [Cordarone 200 MG] 200 mg PO DAILY 02/05/23 [History] Dapagliflozin Propanediol [Farxiga] 10 mg PO DAILY 02/05/23 [History] Ergocalciferol (Vitamin D2) [Vitamin D2] 1,250 mcg PO UD 02/05/23 [History] Insulin Lispro [Insulin Lispro Kwikpen U-100] 30 unit SQ BID 02/05/23 [History] Metoprolol Tartrate 25 mg [Lopressor 25MG Tab] 25 mg PO BID 02/05/23 [History] Rivaroxaban [Xarelto] 20 mg PO DAILY 02/05/23 [History] Torsemide 20 mg [Demadex 20 mg] 20 mg PO DAILY 02/05/23 [History] Insulin Glargine [Lantus Insulin] 54 unit SQ QAM 10/18/23 [History] Torsemide 20 mg [Demadex 20 mg] 20 mg PO DAILY 10/18/23 [History] Hx Tetanus, Diphtheria Vaccination/Date Given: Yes Hx Influenza Vaccination/Date Given: No Hx Pneumococcal Vaccination/Date Given: No Travel Risk - International Travel Have you traveled outside of the country in past 3 weeks: No - Coronavirus Screening Are you exhibiting any of the following symptoms?: No Close contact with a COVID-19 positive Pt in past 14-21 Days: No - Vaccine Status Have you recieved a Covid-19 vaccination: Yes 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: [employer] - Vaccination Dates Date of 2cond Vaccination (if applicable): UNKNOWN - Review of Systems Constitutional: No Symptoms Eyes: No Symptoms Ears, Nose, & Throat: No Symptoms Respiratory: No Symptoms Cardiac: Chest Pain Abdominal/Gastrointestinal: No Symptoms Genitourinary Symptoms: No Symptoms Musculoskeletal: No Symptoms Skin: No Symptoms Neurological: No Symptoms Psychological: No Symptoms Endocrine: No Symptoms Hematologic/Lymphatic: No Symptoms Immunological/Allergic: No Symptoms All Other Systems: Reviewed and Negative - Past Medical History Pertinent Past Medical History: Yes Neurological History: No Pertinent History ENT History: No Pertinent History Cardiac History: No Pertinent History Respiratory History: No Pertinent History Endocrine Medical History: Diabetes Type II Musculoskeletal History: No Pertinent History GI Medical History: No Pertinent History History: No Pertinent History Psycho-Social History: No Pertinent History Male Reproductive Disorders: No Pertinent History - Past Surgical History Past Surgical History: No Neuro Surgical History: No Pertinent History Cardiac: No Pertinent History Respiratory: No Pertinent History Gastrointestinal: No Pertinent History Genitourinary: No Pertinent History Musculoskeletal: No Pertinent History Male Surgical History: No Pertinent History - Social History Smoking Status: Never smoker Exposure to second hand smoke: No Drug Use: none Patient Lives Alone: Yes - Nursing Vital Signs Nursing Vital Signs: Initial Vital Signs Temperature 97.6 F 10/18/23 13:41 Pulse Rate 91 H 10/18/23 13:41 Respiratory Rate 28 H 10/18/23 13:41 Blood Pressure 160/79 10/18/23 13:41 O2 Sat by Pulse Oximetry 95 10/18/23 13:41 Pain Scale Pain Intensity 4 - Physical Exam General Appearance: no apparent distress, alert, anxiety Eye Exam: PERRL/EOMI, eyes nml inspection Ears, Nose, Throat Exam: normal ENT inspection, moist mucous membranes Neck Exam: normal inspection, non-tender, supple, full range of motion Respiratory Exam: normal breath sounds, chest tenderness, lungs clear, re spiratory distress, airway intact Cardiovascular Exam: regular rate/rhythm, normal heart sounds, normal peripheral pulses Gastrointestinal/Abdomen Exam: soft, normal bowel sounds, No tenderness Rectal Exam: not done Back Exam: normal inspection, normal range of motion, No CVA tenderness, No vertebral tenderness Extremity Exam: normal range of motion, pelvis stable Neurologic Exam: alert, oriented x 3, cooperative, flying ii instructor II-XII nml as tested, normal mood/affect, other (Patient has chronic upper extremity tremors.) Lymphatic Exam: adenopathy SpO2 Interpretation: borderline oxygenation SpO2: 92 O2 Delivery: Room Air - Course Nursing assessment & vital signs reviewed: Yes EKG Interpreted by Me: RATE (87), A-fib, Other (Rate controlled atrial fibrillation. No evidence of any acute ischemic changes on today's twelve-lead EKG.) Ordered Tests: Active Orders 24 hr Category Date Time Status Change Management Manager STAT Care 10/18/23 13:42 Active EKG-ER Only STAT Care 10/18/23 13:42 Active IV Insertion STAT Care 10/18/23 13:42 Active CHEST 1 VIEW (PORTABLE) Stat Exams 10/18/23 13:42 Completed CHEST WITH CONTRAST [CT] Stat Exams 10/18/23 14:27 Completed CBC W DIFF Stat Lab 10/18/23 13:52 Completed CMP Stat Lab 10/18/23 13:52 Completed D-DIMER QUANTITATIVE Stat Lab 10/18/23 13:52 Completed TROPONIN Q4H Lab 10/18/23 13:52 Completed TROPONIN Q4H Lab 10/18/23 17:45 Ordered TROPONIN Q4H Lab 10/18/23 21:45 Ordered Medication Summary Discontinued Medications Generic Name Dose Route Start Last Admin Trade Name Freq PRN Reason Stop Dose Admin Aspirin 324 mg 10/18/23 13:42 10/18/23 13:54 Aspirin 81 Mg Tab.Chew PO 10/18/23 13:43 324 mg STAT ONE Administration Aspirin Confirm 10/18/23 13:49 Aspirin 81 Mg Tab.Chew Administered 10/18/23 13:50 Dose 324 mg .ROUTE .STK-MED ONE Sodium Chloride 500 mls @ 500 mls/hr 10/18/23 14:27 10/18/23 15:14 Sodium Chloride 0.9% 500 Ml IV 10/18/23 15:26 500 mls/hr .Q1H ONE Administration Sodium Chloride Confirm 10/18/23 15:10 Sodium Chloride 0.9% 500 Ml Administered 10/18/23 15:11 Dose 500 mls @ ud IV .STK-MED ONE Lab/Rad Data: Laboratory Result Diagrams 10/18/23 13:52 10/18/23 13:52 Laboratory Results 10/18/23 10/18/23 10/18/23 Range/Units 13:52 13:52 13:52 WBC (4.0-10.5) x10^3/uL RBC (4.1-5.6) x10^6/uL Hgb (12.5-18.0) g/dL Hct (42-50) % MCV (78-100) fL MCH (26-32) pg MCHC (32-36) g/dL RDW (11.5-14.0) % Plt Count (150-450) x10^3/uL MPV (7.5-11.0) fL Gran % (36.0-66.0) % Immature Gran % (Auto) (0.00-0.4) % Nucleat RBC Rel Count (0.00-0.1) % Eos # (Auto) (0-0.5) x10^3/uL Immature Gran # (Auto) (0.00-0.03) x10^3u/L Absolute Lymphs (auto) (1.0-4.6) x10^3/uL Absolute Monos (auto) (0.0-1.3) x10^3/uL Absolute Nucleated RBC (0.00-0.01) x10^3u/L Lymphocytes % (24.0-44.0) % Monocytes % (0.0-12.0) % Eosinophils % (0.00-5.0) % Basophils % (0.0-0.4) % Absolute Granulocytes (1.4-6.9) x10^3/uL Basophils # (0-0.4) x10^3/uL D-Dimer 0.53 H (0.0-0.50) mg/L Sodium 141 (137-145) mmol/L Potassium 4.1 (3.5-5.1) mmol/L Chloride 102 (98-107) mmol/L Carbon Dioxide 33 H (22-30) mmol/L Anion Gap 10.0 (5-15) MEQ/L BUN 12 (9-20) mg/dL Creatinine 0.66 (0.66-1.25) mg/dL Estimated GFR 108.1 ML/MIN Glucose 196 H (74-106) mg/dL Calcium 9.4 (8.4-10.2) mg/dL Total Bilirubin 0.40 (0.2-1.3) mg/dL AST 17 (17-59) U/L ALT 15 (0-50) U/L Alkaline Phosphatase 107 (38-126) U/L Troponin I < 0.012 (0.000-0.034) ng/mL Serum Total Protein 7.6 (6.3-8.2) g/dL Albumin 3.9 (3.5-5.0) g/dL Slides for Path Review 10/18/23 Range/Units 13:52 WBC 8.7 (4.0-10.5) x10^3/uL RBC 5.09 (4.1-5.6) x10^6/uL Hgb 11.6 L (12.5-18.0) g/dL Hct 40.3 L (42-50) % MCV 79.2 (78-100) fL MCH 22.8 L (26-32) pg MCHC 28.8 L (32-36) g/dL RDW 16.3 H (11.5-14.0) % Plt Count 301 (150-450) x10^3/uL MPV 10.6 (7.5-11.0) fL Gran % 74.5 H (36.0-66.0) % Immature Gran % (Auto) 0.3 (0.00-0.4) % Nucleat RBC Rel Count 0.0 (0.00-0.1) % Eos # (Auto) 0.34 (0-0.5) x10^3/uL Immature Gran # (Auto) 0.03 (0.00-0.03) x10^3u/L Absolute Lymphs (auto) 1.20 (1.0-4.6) x10^3/uL Absolute Monos (auto) 0.60 (0.0-1.3) x10^3/uL Absolute Nucleated RBC 0.00 (0.00-0.01) x10^3u/L Lymphocytes % 13.9 L (24.0-44.0) % Monocytes % 6.9 (0.0-12.0) % Eosinophils % 3.9 (0.00-5.0) % Basophils % 0.5 (0.0-0.4) % Absolute Granulocytes 6.44 (1.4-6.9) x10^3/uL Basophils # 0.04 (0-0.4) x10^3/uL D-Dimer (0.0-0.50) mg/L Sodium (137-145) mmol/L Potassium (3.5-5.1) mmol/L Chloride (98-107) mmol/L Carbon Dioxide (22-30) mmol/L Anion Gap (5-15) MEQ/L BUN (9-20) mg/dL Creatinine (0.66-1.25) mg/dL Estimated GFR ML/MIN Glucose (74-106) mg/dL Calcium (8.4-10.2) mg/dL Total Bilirubin (0.2-1.3) mg/dL AST (17-59) U/L ALT (0-50) U/L Alkaline Phosphatase (38-126) U/L Troponin I (0.000-0.034) ng/mL Serum Total Protein (6.3-8.2) g/dL Albumin (3.5-5.0) g/dL Slides for Path Review YES - Progress Progress: improved, re-examined Air Movement: good Progress Note: 10/18/23 14:31 This patient's medical issue is 1 of moderate complexity. Level complexity in the workup performed is based on review of the patient's past medical history, review the patient's medication list, review of patient drug allergy list, history present illness and physical findings on examination. The workup in this patient includes placement of intravenous line, twelve-lead EKG, troponin level, D-dimer level, chest x-ray, CBC, CMP. Chest x-ray was interpreted by the radiologist and I reviewed the impression. The impression states subtle hazy right base infiltrate/atelectasis. 10/18/23 16:41 I interpreted the patient's laboratory data. The patient D-dimer is slightly elevated. Patient also was having chest pain. There was a chest x-ray read by Dr. Arenas our in-house radiologist who states there was a subtle hazy right base infiltrate/atelectasis. No other laboratory data suggest any other acute, emergent findings. Therefore, I ordered a CT scan of the chest with contrast. CT scan of the chest with contrast was interpreted by the radiologist. I reviewed the impression. The impression states negative for pulmonary embolus. There are no acute cardiopulmonary abnormalities seen. The patient is having bilateral chest discomfort. There are there is suggestion of possible infiltrate that is early in the right base therefore we will place him on Levaquin orally here in the emergency department and then 7 days more as an outpatient. Blood Culture(s) Obtained: No Antibiotics given: Yes Counseled pt/family regarding: lab results, diagnosis, need for follow-up, rad results Medical Desision Making - Diagnostic Testing Diagnostic test were ordered, analyzed, and reviewed by me: Yes Radiological Interpretation: Reviewed by me, Teleradiologist Report - Risk of complications The pt has a mod risk of morbidity or mortality based on: Need for prescription drug management - Departure Departure Disposition: Home Clinical Impression: Nonspecific chest pain, Right pulmonary infiltrate on CXR Condition: Stable Critical Care Time: No Referrals: EVA ODELL FNP [Primary Care Provider] - Follow up/PCP as directed Additional Instructions: Drink plenty of fluids. Take your medications as prescribed. Call your primary care provider tomorrow, 10/19/2023, to make arrangements for further evaluation follow-up. Prescriptions: Cefdinir 300 mg PO BID #14 cap
--- NOTE | 2023-10-18 16:37 | XRAY ---
Indication: Chest pain. Elevated d-dimer. Multiple contiguous axial images obtained through the chest using 80 cc Isovue 370 contrast and PE protocol. Comparison: January 26, 2019 Adequate opacification of the pulmonary arteries to include the lobar and segmental branches. No pulmonary embolus. Heart not enlarged again with prominent epicardiac fat. Aorta is normal in course and caliber. Stable tiny mediastinal and right hilar calcified nodes. No pathologic mediastinal/hilar lymphadenopathy. Lungs inflated and remain clear. Bony thorax intact again with flowing osteophytes throughout the spine. Limited upper abdomen again demonstrates fatty liver. Impression: 1. Continued negative pulmonary embolus. No new/acute cardiopulmonary abnormalities. 2. Again incidental fatty liver, chronic bony findings, and old granulomatous disease.
[2023-10-18 17:08] VITALS: PULSE 76; RESP 16; O2SAT 90
== END 2023-10-18 17:25 | disposition home or self-care (01) ==
LOC: ED 13:34
DX: R07.9 Chest pain, unspecified (principal); R91.8 Other nonspecific abnormal finding of lung field; E11.9 Type 2 diabetes mellitus without complications; Z79.84 Long term (current) use of oral hypoglycemic drugs; Z79.4 Long term (current) use of insulin; Z79.01 Long term (current) use of anticoagulants; Z79.899 Other long term (current) drug therapy
CPT/HCPCS: 36000; 36415; 71045; 71260; 80053; 84484; 85025; 85379; 93005; 93041; 99284; A9270-GY

== ENCOUNTER 2024-01-20 11:53 | Emergency (ER) | payer OTHER ==
[2024-01-20 12:02] VITALS: TEMP 97.7
[2024-01-20] MEDS ORDERED: BABY ASPIRIN 81 MG CHEW ONE (12:13)
[2024-01-20] MEDS ORDERED: Nitrostat 0.4 MG (ED) SL ONE (12:14)
[2024-01-20] MEDS ORDERED: MORPHINE SULFATE 4 MG INJ ONE (12:14)
[2024-01-20] MEDS ORDERED: Sodium Chloride 0.9% 1000 ML 1,000 ML ONE (12:14)
[2024-01-20] MEDS: BABY ASPIRIN 81 MG CHEW PO ONE (12:15)
[2024-01-20] MEDS: Nitrostat 0.4 MG (ED) SL ONE (12:16)
[2024-01-20] MEDS: Sodium Chloride 0.9% 1000 ML 1,000 ML IV SCH (12:17)
[2024-01-20] MEDS: MORPHINE SULFATE 4 MG INJ IV ONE (12:18)
[2024-01-20 12:25] LABS: Absolute Neutrophil Ct (ANC) 5.63 x10^3/uL (1.4-6.9); BASOPHIL % 0.5 % (0.0-0.4); Basophil (Absolute #) 0.04 x10^3/uL (0-0.4); Eosinophil % 4.5 % (0.00-5.0); Eosinophil (Absolute #) 0.35 x10^3/uL (0-0.5); Hemoglobin 10.6 g/dL (12.5-18.0); IMMATURE GRAN # 0.03 x10^3u/L (0.00-0.03); IMMATURE GRAN % 0.4 % (0.00-0.4); Lymphocyte (Absolute #) 1.25 x10^3/uL (1.0-4.6); Mean Cell Volume 74.8 fL (78-100); Mean Corpuscular Hemoglobin 22.6 pg (26-32); Mean Corpuscular Hgb Concent. 30.3 g/dL (32-36); Mean Platelet Volume 9.7 fL (7.5-11.0); Monocyte (Absolute #) 0.53 x10^3/uL (0.0-1.3); Monocytes % 6.8 % (0.0-12.0); Neutrophil % 71.8 % (36.0-66.0); Platelet Count 334 x10^3/uL (150-450); Red Blood Count 4.68 x10^6/uL (4.1-5.6); Red Cell Distribution Width 15.9 % (11.5-14.0); White Blood Count 7.8 x10^3/uL (4.0-10.5)
[2024-01-20 12:43] LABS: PROTIME 10.9 SECONDS (9.4-12.5); PTT 28.8 SECONDS (25.1-36.5)
[2024-01-20 12:45] LABS: D-DIMER QUANTITATIVE 1.24 mg/L (0.0-0.50)
[2024-01-20 12:46] LABS: ALBUMIN 3.5 g/dL (3.5-5.0); BILIRUBIN,TOTAL 0.5 mg/dL (0.2-1.3); Calcium 8.6 mg/dL (8.4-10.2); Creatinine 1 0.69 mg/dL (0.66-1.25); EST GLOMERULAR FILTRATION RATE 106.6 ML/MIN; Potassium 3.7 mmol/L (3.5-5.1); Total Protein 7.1 g/dL (6.3-8.2)
--- NOTE | 2024-01-20 12:50 | XRAY ---
Indication: Chest pain. Comparison: October 18, 2023 Portable chest demonstrates new blunting left costophrenic angle favoring small effusion. Remaining lungs clear. Heart not enlarged again with CT proven prominent epicardiac fat. Bony thorax intact.
[2024-01-20 13:02] LABS: NT PRO BNPII 512 pg/mL (<300); TROPONIN < 0.012 ng/mL (0.000-0.033)
[2024-01-20 13:31] LABS: Erythrocyte Sedimentation Rate 90 mm/hr (0-15)
--- NOTE | 2024-01-20 14:02 | XRAY ---
Indication: Chest pain. Elevated d-dimer. Multiple contiguous axial images obtained through the chest using 80 cc Isovue 370 contrast and PE protocol. Comparison: October 18, 2023 Good opacification of the pulmonary arteries to include the lobar and segmental branches. Again no pulmonary embolus. Heart not enlarged again with prominent epicardiac fat. Aorta is normal in course and caliber. Stable tiny mediastinal and right hilar calcified nodes. No pathologic mediastinal/hilar lymphadenopathy. Lungs demonstrate new small bibasilar pleural effusions with compressive atelectasis. No suspicious pulmonary mass/nodule, infiltrate, or pneumothorax. Bony thorax intact again with flowing osteophytes throughout the spine. Limited upper abdomen again demonstrates fatty liver. Impression: 1. Continued negative pulmonary embolus. 2. New small bibasilar effusions/atelectasis without cardiomegaly. 3. Again chronic findings including fatty liver, chronic bony findings, and old granulomatous disease.
[2024-01-20 14:17] VITALS: BP 157/80; PULSE 74; RESP 19
[2024-01-20 14:23] VITALS: O2SAT 93
--- NOTE | 2024-01-20 14:23 | ERPHSYRPT ---
- History of Present Illness Time Seen by Provider: 01/20/24 12:00 Historian: patient Exam Limitations: no limitations Patient Subjective Stated Complaint: Pt states "I was at Dr. Moreno office and I started to have chest pain on and off and I thought it would go away but didnt." Triage Nursing Assessment: Pt presented alert and oriented X 3, skin pwd. Pt ambulates with a cane. Pt able to speak in clear full sentences. PT has both lower legs wrapped with edema noted. 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 The pain seems to come and go its mostly in the left chest he does have a history of atrial for but no coronary artery disease per se. 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 Timing/Duration: today, hour(s) (1) Activities at Onset: none Location: substernal Chest Pain Radiation: no radiation Severity of Pain-Max: moderate Severity of Pain-Current: none Modifying Factors: Improves With: nothing Associated Symptoms: denies symptoms Nitro Today/Relief: no nitro taken today Aspirin Treatment Today: no aspirin today Allergies/Adverse Reactions: Penicillins Allergy (Verified 10/18/23 13:57) Sulfa (Sulfonamide Antibiotics) Allergy (Verified 10/18/23 13:57) Home Medications: Amiodarone HCl 200 mg [Cordarone 200 MG] 200 mg PO DAILY 02/05/23 [History] Dapagliflozin Propanediol [Farxiga] 10 mg PO DAILY 02/05/23 [History] Ergocalciferol (Vitamin D2) [Vitamin D2] 1,250 mcg PO UD 02/05/23 [History] Insulin Lispro [Insulin Lispro Kwikpen U-100] 30 unit SQ BID 02/05/23 [History] Metoprolol Tartrate 25 mg [Lopressor 25MG Tab] 25 mg PO BID 02/05/23 [History] Rivaroxaban [Xarelto] 20 mg PO DAILY 02/05/23 [History] Torsemide 20 mg [Demadex 20 mg] 20 mg PO DAILY 02/05/23 [History] Insulin Glargine [Lantus Insulin] 54 unit SQ QAM 10/18/23 [History] Torsemide 20 mg [Demadex 20 mg] 20 mg PO DAILY 10/18/23 [History] Hx Tetanus, Diphtheria Vaccination/Date Given: No Hx Influenza Vaccination/Date Given: No Hx Pneumococcal Vaccination/Date Given: No Immunizations Up to Date: No Travel Risk - International Travel Have you traveled outside of the country in past 3 weeks: No - Emerging Infectious Disease Are you exhibiting symptoms associated with any current EIDs: No - Past Medical History Pertinent Past Medical History: Yes Neurological History: Peripheral Neuropathy ENT History: No Pertinent History Cardiac History: Angina, Arrhythmia Respiratory History: No Pertinent History Endocrine Medical History: Diabetes Type II Musculoskeletal History: Osteoarthritis GI Medical History: No Pertinent History History: No Pertinent History Psycho-Social History: No Pertinent History Male Reproductive Disorders: No Pertinent History Other Medical History: HISTORY OF B LE WOUNDS, PARTIAL SEPTUS INVERTUS. - Past Surgical History Past Surgical History: No Neuro Surgical History: No Pertinent History Cardiac: No Pertinent History Respiratory: No Pertinent History Gastrointestinal: No Pertinent History Genitourinary: No Pertinent History Musculoskeletal: No Pertinent History Male Surgical History: No Pertinent History - Social History Smoking Status: Never smoker Exposure to second hand smoke: Yes Drug Use: none Patient Lives Alone: Yes - Nursing Vital Signs Nursing Vital Signs: Initial Vital Signs Temperature 97.7 F 01/20/24 11:54 Pulse Rate 80 01/20/24 11:54 Respiratory Rate 22 01/20/24 11:54 Blood Pressure 165/62 01/20/24 11:54 O2 Sat by Pulse Oximetry 96 01/20/24 11:54 Pain Scale Pain Intensity 0 - Physical Exam General Appearance: no apparent distress, alert Eye Exam: PERRL/EOMI, eyes nml inspection Ears, Nose, Throat Exam: normal ENT inspection, moist mucous membranes Neck Exam: normal inspection, non-tender, supple, full range of motion Respiratory Exam: normal breath sounds, lungs clear, No respiratory distress Cardiovascular Exam: regular rate/rhythm, normal heart sounds Gastrointestinal/Abdomen Exam: soft, No tenderness, No mass Back Exam: normal inspection, No CVA tenderness, No vertebral tenderness Extremity Exam: normal inspection, normal range of motion Neurologic Exam: alert, oriented x 3, cooperative, normal mood/affect, sensation nml, No motor deficits Skin Exam: normal color, warm, dry SpO2: 93 - Course Nursing assessment & vital signs reviewed: Yes EKG Interpreted by Me: RATE (74), Sinus Rhythm, NORMAL AXIS, NORMAL INTERVALS, NORMAL QRS, NORMAL ST-T - Radiology Exams Chest X-ray Interpretation: Reviewed by me - CT Exams Chest CT Interpretation: No PE Ordered Tests: Active Orders 24 hr Category Date Time Status IV Insertion STAT Care 01/20/24 12:04 Active ACO SDOH Referral ONCE Cons 01/20/24 12:02 Active CHEST 1 VIEW (PORTABLE) Stat Exams 01/20/24 12:05 Completed CHEST WITH CONTRAST [CT] Stat Exams 01/20/24 12:47 Completed CBC W DIFF Stat Lab 01/20/24 12:05 Completed CK-Creatinine Phosphokinase Stat Lab 01/20/24 12:05 Completed CMP Stat Lab 01/20/24 12:05 Completed D-DIMER QUANTITATIVE Stat Lab 01/20/24 12:05 Completed Erythrocyte Sedimentation Rate Stat Lab 01/20/24 12:05 Completed LIPASE Stat Lab 01/20/24 12:05 Completed Lactic Acid Stat Lab 01/20/24 12:15 Completed NT PRO BNPII Stat Lab 01/20/24 12:05 Completed PROTIME WITH INR Stat Lab 01/20/24 12:05 Completed PTT Stat Lab 01/20/24 12:05 Completed TROPONIN Q4H Lab 01/20/24 12:05 Completed TROPONIN Q4H Lab 01/20/24 16:15 Ordered TROPONIN Q4H Lab 01/20/24 20:15 Ordered UA W/RFX UR CULTURE Stat Lab 01/20/24 12:05 Ordered Medication Summary Generic Name Dose Route Start Last Admin Trade Name Freq PRN Reason Stop Dose Admin Sodium Chloride 1,000 mls @ 50 mls/hr 01/20/24 12:15 01/20/24 12:17 Sodium Chloride 0.9% 1000 Ml IV 02/19/24 12:14 50 mls/hr .Q20H GERRI Administration Discontinued Medications Generic Name Dose Route Start Last Admin Trade Name Freq PRN Reason Stop Dose Admin Aspirin 324 mg 01/20/24 12:04 01/20/24 12:15 Aspirin 81 Mg Tab.Chew PO 01/20/24 12:05 324 mg STAT ONE Administration Aspirin Confirm 01/20/24 12:13 Aspirin 81 Mg Tab.Chew Administered 01/20/24 12:14 Dose 324 mg .ROUTE .STK-MED ONE Morphine Sulfate 4 mg 01/20/24 12:04 01/20/24 12:18 Morphine Sulfate 4 Mg/Ml Injection IV 01/20/24 12:05 Not Given STAT ONE Morphine Sulfate Confirm 01/20/24 12:14 Morphine Sulfate 4 Mg/Ml Injection Administered 01/20/24 12:15 Dose 4 mg .ROUTE .STK-MED ONE Nitroglycerin 0.4 mg 01/20/24 12:04 01/20/24 12:16 Nitroglycerin 0.4 Mg (Ed) 0.4 Mg Tab.Subl SL 01/20/24 12:05 0.4 mg STAT ONE Administration Nitroglycerin Confirm 01/20/24 12:14 Nitroglycerin 0.4 Mg (Ed) 0.4 Mg Tab.Subl Administered 01/20/24 12:15 Dose 0.4 mg SL .STK-MED ONE Lab/Rad Data: Laboratory Result Diagrams 01/20/24 12:05 01/20/24 12:05 Laboratory Results 01/20/24 01/20/24 01/20/24 Range/Units 12:15 12:05 12:05 WBC (4.0-10.5) x10^3/uL RBC (4.1-5.6) x10^6/uL Hgb (12.5-18.0) g/dL Hct (42-50) % MCV (78-100) fL MCH (26-32) pg MCHC (32-36) g/dL RDW (11.5-14.0) % Plt Count (150-450) x10^3/uL MPV (7.5-11.0) fL Gran % (36.0-66.0) % Immature Gran % (Auto) (0.00-0.4) % Nucleat RBC Rel Count (0.00-0.1) % Eos # (Auto) (0-0.5) x10^3/uL Immature Gran # (Auto) (0.00-0.03) x10^3u/L Absolute Lymphs (auto) (1.0-4.6) x10^3/uL Absolute Monos (auto) (0.0-1.3) x10^3/uL Absolute Nucleated RBC (0.00-0.01) x10^3u/L Lymphocytes % (24.0-44.0) % Monocytes % (0.0-12.0) % Eosinophils % (0.00-5.0) % Basophils % (0.0-0.4) % Absolute Granulocytes (1.4-6.9) x10^3/uL Basophils # (0-0.4) x10^3/uL ESR (0-15) mm/hr PT 10.9 (9.4-12.5) SECONDS INR 1.00 (0.8-3.0) APTT 28.8 (25.1-36.5) SECONDS D-Dimer 1.24 H* (0.0-0.50) mg/L Sodium (135-145) mmol/L Potassium (3.5-5.1) mmol/L Chloride (98-107) mmol/L Carbon Dioxide (22-30) mmol/L Anion Gap (5-15) MEQ/L BUN (9-20) mg/dL Creatinine (0.66-1.25) mg/dL Estimated GFR ML/MIN Glucose (74-106) mg/dL Lactic Acid 1.6 (0.4-2.0) Calcium (8.4-10.2) mg/dL Total Bilirubin (0.2-1.3) mg/dL AST (17-59) U/L ALT (0-50) U/L Alkaline Phosphatase (38-126) U/L Creatine Kinase (55-170) U/L Troponin I < 0.012 (0.000-0.033) ng/mL NT-Pro-B Natriuret Pep 512 (<300) pg/mL Serum Total Protein (6.3-8.2) g/dL Albumin (3.5-5.0) g/dL Lipase (23-300) U/L 01/20/24 01/20/24 Range/Units 12:05 12:05 WBC 7.8 (4.0-10.5) x10^3/uL RBC 4.68 (4.1-5.6) x10^6/uL Hgb 10.6 L (12.5-18.0) g/dL Hct 35.0 L (42-50) % MCV 74.8 L (78-100) fL MCH 22.6 L (26-32) pg MCHC 30.3 L (32-36) g/dL RDW 15.9 H (11.5-14.0) % Plt Count 334 (150-450) x10^3/uL MPV 9.7 (7.5-11.0) fL Gran % 71.8 H (36.0-66.0) % Immature Gran % (Auto) 0.4 (0.00-0.4) % Nucleat RBC Rel Count 0.0 (0.00-0.1) % Eos # (Auto) 0.35 (0-0.5) x10^3/uL Immature Gran # (Auto) 0.03 (0.00-0.03) x10^3u/L Absolute Lymphs (auto) 1.25 (1.0-4.6) x10^3/uL Absolute Monos (auto) 0.53 (0.0-1.3) x10^3/uL Absolute Nucleated RBC 0.00 (0.00-0.01) x10^3u/L Lymphocytes % 16.0 L (24.0-44.0) % Monocytes % 6.8 (0.0-12.0) % Eosinophils % 4.5 (0.00-5.0) % Basophils % 0.5 (0.0-0.4) % Absolute Granulocytes 5.63 (1.4-6.9) x10^3/uL Basophils # 0.04 (0-0.4) x10^3/uL ESR 90 H (0-15) mm/hr PT (9.4-12.5) SECONDS INR (0.8-3.0) APTT (25.1-36.5) SECONDS D-Dimer (0.0-0.50) mg/L Sodium 141 (135-145) mmol/L Potassium 3.7 (3.5-5.1) mmol/L Chloride 102 (98-107) mmol/L Carbon Dioxide 33 H (22-30) mmol/L Anion Gap 9.0 (5-15) MEQ/L BUN 10 (9-20) mg/dL Creatinine 0.69 (0.66-1.25) mg/dL Estimated GFR 106.6 ML/MIN Glucose 182 H (74-106) mg/dL Lactic Acid (0.4-2.0) Calcium 8.6 (8.4-10.2) mg/dL Total Bilirubin 0.50 (0.2-1.3) mg/dL AST 14 L (17-59) U/L ALT 12 (0-50) U/L Alkaline Phosphatase 86 (38-126) U/L Creatine Kinase 57 (55-170) U/L Troponin I (0.000-0.033) ng/mL NT-Pro-B Natriuret Pep (<300) pg/mL Serum Total Protein 7.1 (6.3-8.2) g/dL Albumin 3.5 (3.5-5.0) g/dL Lipase 25 (23-300) U/L - Progress Progress: improved Medical Desision Making - Diagnostic Testing Diagnostic test were ordered, analyzed, and reviewed by me: Yes Radiological Interpretation: Reviewed by me - Risk of complications Low Risk: Low risk of morbidity from additional dx testing or treatment - Departure Departure Disposition: Home Clinical Impression: Atypical chest pain, Bronchitis Condition: Stable Critical Care Time: No Referrals: EVA ODELL FNP [Primary Care Provider] - Follow up/PCP as directed Instructions: Chest Pain (DC) Prescriptions: Doxycycline Hyclate 100 mg [Vibramycin 100 MG] 100 mg PO BID #14 tab
== END 2024-01-20 14:34 | disposition home or self-care (01) ==
LOC: ED 11:53
DX: R07.89 Other chest pain (principal); J40 Bronchitis, not specified as acute or chronic; E11.42 Type 2 diabetes mellitus with diabetic polyneuropathy; I10 Essential (primary) hypertension; E78.5 Hyperlipidemia, unspecified; Z79.84 Long term (current) use of oral hypoglycemic drugs; Z79.4 Long term (current) use of insulin; Z79.01 Long term (current) use of anticoagulants; Z79.899 Other long term (current) drug therapy
CPT/HCPCS: 36000; 36415; 71045; 71260; 80053; 82550; 83605; 83690; 83880; 84484; 85025; 85379; 85610; 85652; 85730; 99284; J2270; A9270-GY

== ENCOUNTER 2024-02-03 15:27 | Inpatient (IN) | payer OTHER ==
--- NOTE | 2024-02-03 18:40 | PCM.HP ---
History of Present Illness - Chief Complaint Chief Complaint: Cellulitis Date: 02/03/24 History of Present Illness: is a 58 year old male with PMHX of Type II DM, CHF, morbid obesity, A-fib, HTN, OA, and peripheral neuropathy. He was seen in podiatry office today, cellulitis with green drainage seen. Legs were cleaned and wrapped by podiatry prior to admission. He states this is an ongoing problem for some time now that has not gotten better with OP antibiotics. He was agreeable to come in for IV antibiotics. Wound culture of drainage done by podiatry today prior to admission. His BLLE are extremely swollen and will also require BID IV Lasix. He denies CP, SOB, abd. pain, N/V/D. He does have a few skin lesions on upper thigh and left upper back. Nursing was able to take pics for the chart. - Review of Systems Constitutional: No Fever, No Chills Eyes: No Symptoms Ears, Nose, & Throat: No Symptoms Respiratory: No Cough, No Short Of Breath Cardiac: No Chest Pain, No Edema, No Syncope Abdominal/Gastrointestinal: No Abdominal Pain, No Nausea, No Vomiting, No Diarrhea Genitourinary Symptoms: No Dysuria Musculoskeletal: No Back Pain, No Neck Pain Skin: Cellulitis (BLLE), Skin Lesions (Skin lesions of left upper thigh, and left upper back), No Rash Neurological: No Dizziness, No Focal Weakness, No Sensory Changes Psychological: No Symptoms Endocrine: No Symptoms Hematologic/Lymphatic: No Symptoms Immunological/Allergic: No Symptoms Medications & Allergies Home Medications: Home Medication List Ergocalciferol (Vitamin D2) [Vitamin D2] 1,250 mcg PO UD 02/05/23 [History Confirmed 02/03/24] Insulin Lispro [Insulin Lispro Kwikpen U-100] 30 unit SQ BID 02/05/23 [History Confirmed 02/03/24] Metoprolol Tartrate 25 mg [Lopressor 25MG Tab] 25 mg PO BID 02/05/23 [History Confirmed 02/03/24] Rivaroxaban [Xarelto] 20 mg PO DAILY 02/05/23 [History Confirmed 02/03/24] Insulin Glargine [Lantus Insulin] 54 unit SQ QAM 10/18/23 [History Confirmed 02/03/24] Torsemide 20 mg [Demadex 20 mg] 20 mg PO BID 10/18/23 [History Confirmed 02/03/24] Potassium Chloride 10 meq PO BID 02/03/24 [History Confirmed 02/03/24] Allergies/Adverse Reactions: Allergies Allergy/AdvReac Type Severity Reaction Status Date / Time Penicillins Allergy Verified 10/18/23 13:57 Sulfa (Sulfonamide Allergy Verified 10/18/23 13:57 Antibiotics) - Past Medical History Past Medical History: Yes Neurological History: Peripheral Neuropathy ENT History: No Pertinent History Cardiac History: Angina, Arrhythmia Respiratory History: No Pertinent History Endocrine Medical History: Diabetes Type II Musculoskelatal History: Osteoarthritis GI Medical History: No Pertinent History History: No Pertinent History Pyscho-Social History: No Pertinent History Male Reproductive Disorders: No Pertinent History Comment: HISTORY OF B LE WOUNDS, PARTIAL SEPTUS INVERTUS, RUPTURED L ROTATOR CUFF. - Past Surgical History Past Surgical History: Yes Neuro Surgical History: No Pertinent History Cardiac History: No Pertinent History Respiratory Surgery: No Pertinent History GI Surgical History: No Pertinent History Genitourinary Surgical Hx: No Pertinent History Musculskeletal Surgical Hx: No Pertinent History Male Surgical History: No Pertinent History Other Surgical History: PINWHEEL DRAIN IN BACK TO DRAIN FLUIDS_DONE BY [employer] MEZA 2021 - Social History Smoking Status: Never smoker Exposure to second hand smoke: Yes Alcohol: None Drug Use: none - Social Determinants of Health Will the patient participate in the screening: Yes Do you worry about a steady place to live?: Yes Do you have any problems with any of the following?: No known problems In the past 12 months,have you had to go without utilities?: No Have you or anyone in your house had to go without enough: Yes Transportation Issues: No Has anyone in your support network made you feel unsafe?: No Does the patient want assistance with any of the above?: No - Physical Exam Vital Signs: Vital Signs - 24 hr Temp Pulse Resp BP Pulse Ox 02/03/24 16:17 98.6 F 80 16 122/57 92 L General Appearance: no apparent distress, alert, obese Neurologic Exam: alert, oriented x 3, cooperative, normal mood/affect, nml cerebellar function, nml station & gait, sensation nml, No motor deficits Eye Exam: PERRL/EOMI, eyes nml inspection Ears, Nose, Throat Exam: normal ENT inspection, TMs normal, pharynx normal, moist mucous membranes Neck Exam: normal inspection, non-tender, supple, full range of motion Respiratory Exam: normal breath sounds, lungs clear, No respiratory distress Cardiovascular Exam: regular rate/rhythm, normal heart sounds, normal peripheral pulses Gastrointestinal/Abdomen Exam: soft, normal bowel sounds, No tenderness, No mass Back Exam: normal inspection, normal range of motion, No CVA tenderness, No vertebral tenderness Extremity Exam: normal range of motion, pelvis stable, inflammation, pedal edema, swelling (BLLE), tenderness Skin Exam: warm, dry, other (Skin lesions of left upper thigh, and left upper back- see pics in chart- appear to be healing), No rash Lymphatic Exam: No adenopathy Assessment/Plan (1) Cellulitis Current Visit: Yes Status: Acute Assessment & Plan: - Antibiotocs - Lasix - Elevate legs - Legs wrapped by podiatry today - pics in chart - Podiatry following - Labs ordered on admission Code(s): L03.90 - CELLULITIS, UNSPECIFIED (2) Ulcer of extremity due to chronic venous insufficiency Current Visit: No Status: Chronic Assessment & Plan: - described per podiatry, with known hx - IV antibiotics - wound culture Code(s): L98.499 - NON-PRESSURE CHRONIC ULCER OF SKIN OF SITES W UNSP SEVERITY; I87.2 - VENOUS INSUFFICIENCY (CHRONIC) (PERIPHERAL) (3) Atrial fibrillation with RVR Current Visit: No Status: Chronic Assessment & Plan: - History - Continue Xarelto - Tele Code(s): I48.91 - UNSPECIFIED ATRIAL FIBRILLATION (4) HTN (hypertension) Current Visit: No Status: Chronic Assessment & Plan: - Controlled -trend - Continue home BP meds Code(s): I10 - ESSENTIAL (PRIMARY) HYPERTENSION (5) Hyperlipidemia Current Visit: No Status: Chronic Assessment & Plan: - + hx- not on any meds - should be on statin for type II DM per guidelines - Lipid panel in am- then start meds after results seen Code(s): E78.5 - HYPERLIPIDEMIA, UNSPECIFIED (6) Multiple wounds of skin Current Visit: No Status: Acute Assessment & Plan: - See pics in chart, upper left thigh, Left upper back, BLLE - BLLE wrapped by podiatry today. - Podiatry to follow - Bacitracin ointment BID affected areas Code(s): T14.8XXA - OTHER INJURY OF UNSPECIFIED BODY REGION, INITIAL ENCOUNTER (7) Peripheral neuropathy Current Visit: No Status: Chronic Assessment & Plan: - not currently on any meds for this - 2:2 uncontrolled DM Code(s): G62.9 - POLYNEUROPATHY, UNSPECIFIED (8) Uncontrolled diabetes mellitus Current Visit: No Status: Chronic Qualifiers: Diabetes mellitus type: type 2 Glycemic state: with hyperglycemia Qualified Code(s): E11.65 - Type 2 diabetes mellitus with hyperglycemia Assessment & Plan: - Continue Humaong 30 units BID - Continue Lantus 54 units daily - low dose humalog s/s - accuchecks ac/hs - A1C- pending Code(s): DDA0209 - (9) Chronic diarrhea Current Visit: Yes Status: Acute Assessment & Plan: - Start probiotics - C-dif/ stool culture VTE: Razia Next of KIN: Amor Loaiza [phone] D/C plan: 2-3 days Code status: SCO/DNR Code(s): K52.9 - NONINFECTIVE GASTROENTERITIS AND COLITIS, UNSPECIFIED
[2024-02-03] MEDS ORDERED: IMODIUM 2 MG PO PRN (18:50)
[2024-02-03 20:03] LABS: Hematocrit 33.3 % (42-50); Hemoglobin 10.1 g/dL (12.5-18.0); Mean Cell Volume 73.5 fL (78-100); Mean Corpuscular Hemoglobin 22.3 pg (26-32); Mean Corpuscular Hgb Concent. 30.3 g/dL (32-36); Mean Platelet Volume 9.7 fL (7.5-11.0); Platelet Count 283 x10^3/uL (150-450); Red Blood Count 4.53 x10^6/uL (4.1-5.6); Red Cell Distribution Width 15.5 % (11.5-14.0); White Blood Count 8.4 x10^3/uL (4.0-10.5)
[2024-02-03 20:15] LABS: ALBUMIN 3.6 g/dL (3.5-5.0); BILIRUBIN,TOTAL 0.4 mg/dL (0.2-1.3); Calcium 8.3 mg/dL (8.4-10.2); Creatinine 1 0.69 mg/dL (0.66-1.25); EST GLOMERULAR FILTRATION RATE 106.6 ML/MIN; Potassium 3.8 mmol/L (3.5-5.1); Total Protein 7.1 g/dL (6.3-8.2)
[2024-02-03] MEDS ORDERED: BACIGUENT 30 GM ONE (22:16)
[2024-02-03] MEDS ORDERED: AZACTAM 1 GM ONE (22:18)
[2024-02-03] MEDS ORDERED: Sodium Chloride 0.9% 100 ML ONE (22:18)
[2024-02-03] MEDS: NYSTOP POWDER 15 GM TP SCH (22:50)
[2024-02-03] MEDS: Lasix 40 MG/4 ML IV SCH (22:50)
[2024-02-03] MEDS: Lopressor 25MG Tab PO SCH (22:50)
[2024-02-03] MEDS: Klor Con PO SCH (22:51)
[2024-02-03] MEDS: HUMALOG SQ SCH (22:51)
[2024-02-03] MEDS: HUMALOG SQ PRN (22:52)
[2024-02-03] MEDS: AZACTAM 1 GM*** 2 GM in Sodium Chloride 0.9% 100 ML IV SCH (23:23)
[2024-02-03] MEDS: BACIGUENT PACKET TP ONE (23:48)
[2024-02-04] MEDS: FLAGYL 500 MG IVPB 500 MG/100 ML BAG IV SCH (00:01)
[2024-02-04] MEDS: Zofran 4 MG/2 ML VIAL IV PRN (00:38)
[2024-02-04 04:57] LABS: Hematocrit 35.2 % (42-50); Hemoglobin 10.5 g/dL (12.5-18.0); Mean Cell Volume 73.9 fL (78-100); Mean Corpuscular Hemoglobin 22.1 pg (26-32); Mean Corpuscular Hgb Concent. 29.8 g/dL (32-36); Platelet Count 370 x10^3/uL (150-450); Red Blood Count 4.76 x10^6/uL (4.1-5.6); Red Cell Distribution Width 15.6 % (11.5-14.0); White Blood Count 9.3 x10^3/uL (4.0-10.5)
--- NOTE | 2024-02-04 05:07 | PCM.NOTE ---
Date and Time: 02/04/24 0501 Subjective Assessment: 58 year old male, referred by podiatry for direct admit 02/03/24 for cellulitis after patient presented to their office with BLE edema, erythema, and noted green drainage. Podiatry will be following patient during his hospitalization. BLE currently wrapped. Cultures have been obtained of drainage. Patient does have a penicillin allergy. Plan for IV abx vancomycin as well as aztreonam for pseudomonas coverage and lasix. Consider ID on discharge. 02/04/24: Met with patient bedside. Podiatry nurse present/wrapping legs. BLE are improving. Cultures are pending. Patient does have areas of excoriation under folds and multiple open wounds which we have consulted wound therapy. Patient is very reluctant to let anyone look at these areas as one is on the scrotum. Patient states he has been treated OP for wounds in the past, I feel he could benefit for further wound therapy on discharge. - Review of Systems Constitutional: No Symptoms Eyes: No Symptoms Ears, Nose, & Throat: No Symptoms Respiratory: No Symptoms Cardiac: No Symptoms Abdominal/Gastrointestinal: No Symptoms Genitourinary Symptoms: No Symptoms Musculoskeletal: No Symptoms Skin: Cellulitis, Skin Lesions (multiple - see wound - various stages of healing) Neurological: No Symptoms Psychological: No Symptoms Endocrine: No Symptoms Hematologic/Lymphatic: No Symptoms Objective Exam General Appearance: no apparent distress Neurologic Exam: alert, oriented x 3, cooperative Skin Exam: other (multiple open areas in various stages of healing) Wound Assessment: Skin/Wound Assessment Wound/Incision Assessment Start: 02/03/24 17:12 Text: Status: Active Freq: Q6H Protocol: Document 02/03/24 18:00 (Rec: 02/03/24 19:16 [id number]) Wound/Incision Assessment Other Wound Assessment Admission General Appearance Open to air Comment Bilateral abdominl folds gaulded, excoriated. Right Posterior Thigh Wound Assessment Admission Wound Type pt reports ruptured varicose vein Dressing Status Dry & Intact Primary Dressing mepilex c tegaderm Comment Purple nonblanchable area, reddened boarders Wound Photo Photo Taken Yes Date: 02/03/24 Time: 18:25 Eye Exam: PERRL Ears, Nose, Throat Exam: normal ENT inspection Neck Exam: normal inspection Respiratory Exam: normal breath sounds, lungs clear Cardiovascular Exam: regular rate/rhythm, normal heart sounds Gastrointestinal/Abdomen Exam: soft, normal bowel sounds Extremity Exam: inflammation, swelling, other (open wounds with purulent drainage) Back Exam: normal inspection Male Genitalia Exam: deferred Rectal Exam: deferred Objective Data Vital Signs: Vital Signs - 24 hr Temp Pulse Resp BP Pulse Ox 02/04/24 04:00 98.9 F 62 19 117/56 97 02/04/24 00:00 99.3 F 69 18 122/57 96 02/03/24 19:48 99.1 F 78 18 150/64 95 02/03/24 16:17 98.6 F 80 16 122/57 92 L Pain Assessment - Last Documented Pain Intensity 1 Intake and Output: Intake & Output 02/01/24 02/02/24 02/03/24 02/04/24 11:59 11:59 11:59 11:59 Intake Total 1040 Balance 1040 Weight 121.3 kg Lab Results: Lab Results-Last 24 Hours 02/03/24 02/03/24 02/03/24 Range/Units 19:58 19:58 19:58 WBC 8.4 (4.0-10.5) x10^3/uL RBC 4.53 (4.1-5.6) x10^6/uL Hgb 10.1 L (12.5-18.0) g/dL Hct 33.3 L (42-50) % MCV 73.5 L (78-100) fL MCH 22.3 L (26-32) pg MCHC 30.3 L (32-36) g/dL RDW 15.5 H (11.5-14.0) % Plt Count 283 (150-450) x10^3/uL MPV 9.7 (7.5-11.0) fL Sodium 141 (135-145) mmol/L Potassium 3.8 (3.5-5.1) mmol/L Chloride 101 (98-107) mmol/L Carbon Dioxide 32 H (22-30) mmol/L Anion Gap 11.0 (5-15) MEQ/L BUN 10 (9-20) mg/dL Creatinine 0.69 (0.66-1.25) mg/dL Estimated GFR 106.6 ML/MIN Glucose 219 H (74-106) mg/dL Hemoglobin A1c 7.64 H (4.5-6.0) % Calcium 8.3 L (8.4-10.2) mg/dL Total Bilirubin 0.40 (0.2-1.3) mg/dL AST 12 L (17-59) U/L ALT 11 (0-50) U/L Alkaline Phosphatase 78 (38-126) U/L Serum Total Protein 7.1 (6.3-8.2) g/dL Albumin 3.6 (3.5-5.0) g/dL Assessment/Plan (1) Cellulitis Current Visit: Yes Status: Acute Assessment & Plan: -Vanc/Aztreonam started, will continue, follow cultures -Podiatry following, will continue dressing changes -keep legs elevated -Cultures pending Code(s): L03.90 - CELLULITIS, UNSPECIFIED (2) Chronic diarrhea Current Visit: Yes Status: Acute Assessment & Plan: -Continue probiotics/dc flagyl -this is chronic -stool studies pending -Consider Cdiff as pt has been on mult antibiotics Code(s): K52.9 - NONINFECTIVE GASTROENTERITIS AND COLITIS, UNSPECIFIED (3) Multiple wounds of skin Current Visit: No Status: Acute Assessment & Plan: -upper left thigh, Left upper back, BLLE -Bacitracin ointment BID to affected areas -Pics documented in chart -BLE ext wrapped per podiatry -Wound therapy consult, appreciate recs Code(s): T14.8XXA - OTHER INJURY OF UNSPECIFIED BODY REGION, INITIAL ENCOUNTER (4) Atrial fibrillation with RVR Current Visit: No Status: Chronic Assessment & Plan: -H/O on Xarelto -Tele Code(s): I48.91 - UNSPECIFIED ATRIAL FIBRILLATION (5) HTN (hypertension) Current Visit: No Status: Chronic Assessment & Plan: -Stable, continue home meds, adjust as appropriate Code(s): I10 - ESSENTIAL (PRIMARY) HYPERTENSION (6) Hyperlipidemia Current Visit: No Status: Chronic Assessment & Plan: - + hx- not on any meds - Lipid panel pending -Consider statin pending results Code(s): E78.5 - HYPERLIPIDEMIA, UNSPECIFIED (7) Ulcer of extremity due to chronic venous insufficiency Current Visit: No Status: Chronic Assessment & Plan: -Podiatry following, wound pictures in chart -IV abx with vanc/azotrenam started, will follow cultures -Consider ID on discharge Code(s): L98.499 - NON-PRESSURE CHRONIC ULCER OF SKIN OF SITES W UNSP SEVERITY; I87.2 - VENOUS INSUFFICIENCY (CHRONIC) (PERIPHERAL) (8) Uncontrolled diabetes mellitus Current Visit: No Status: Chronic Qualifiers: Diabetes mellitus type: type 2 Glycemic state: with hyperglycemia Qualified Code(s): E11.65 - Type 2 diabetes mellitus with hyperglycemia Assessment & Plan: - Continue Humaong 10 untis TID w/meals - pt bs dropping - Continue Lantus 54 units daily - low dose humalog s/s - accuchecks ac/hs -a1c 7.64, much better controlled since last visit VTE: Xarelto Next of KIN: Amor Loaiza [phone] D/C plan: 2-3 days Code status: SCO/DNR Code(s): OOB8195 -
[2024-02-04 05:20] LABS: ALBUMIN 3.9 g/dL (3.5-5.0); ANION GAP 10.1 MEQ/L (5-15); BILIRUBIN,TOTAL 0.5 mg/dL (0.2-1.3); Calcium 8.6 mg/dL (8.4-10.2); Creatinine 1 0.8 mg/dL (0.66-1.25); Potassium 4.3 mmol/L (3.5-5.1); Total Protein 7.7 g/dL (6.3-8.2)
[2024-02-04] MEDS ORDERED: FLAGYL 500 MG IVPB 500 MG/100 ML BAG IV SCH (08:00)
--- NOTE | 2024-02-04 08:26 | PCM.CONS ---
Podiatry HPI - Consult Date of Consultation Date: 02/04/24 Reason for Consult: venous insufficency ulceration with cellulitis Consulting Provider: IMTIAZ LOMBARDO DPM - [facility] History of Present Illness: Jeff is a very pleasant 58-year-old male with past medical history of congestive heart failure, hypertension, diabetes mellitus type 2 controlled with peripheral neuropathy, morbid obesity and atrial fibrillation who presented to my clinic earlier this afternoon with concerns of both ulcerations to the bilateral lower extremity which has been worse in recent history with significant drainage. Due to the nearly circumferential wound surrounding the left lower extremity decision was made for a direct admit with the medicine team. Patient does take torsemide 20 mg daily as well as potassium however this has not helped its condition. Primary care physician Yusra Aguilar. He denies any constitutional symptoms of infection. Medications & Allergies Home Medications: Home Medication List Ergocalciferol (Vitamin D2) [Vitamin D2] 1,250 mcg PO UD 02/05/23 [History Confirmed 02/03/24] Insulin Lispro [Insulin Lispro Kwikpen U-100] 30 unit SQ BID 02/05/23 [History Confirmed 02/03/24] Metoprolol Tartrate 25 mg [Lopressor 25MG Tab] 25 mg PO BID 02/05/23 [History Confirmed 02/03/24] Rivaroxaban [Xarelto] 20 mg PO DAILY 02/05/23 [History Confirmed 02/03/24] Insulin Glargine [Lantus Insulin] 54 unit SQ QAM 10/18/23 [History Confirmed 02/03/24] Torsemide 20 mg [Demadex 20 mg] 20 mg PO BID 10/18/23 [History Confirmed 02/03/24] Potassium Chloride 10 meq PO BID 02/03/24 [History Confirmed 02/03/24] Allergies/Adverse Reactions: Allergies Allergy/AdvReac Type Severity Reaction Status Date / Time Penicillins Allergy Verified 10/18/23 13:57 Sulfa (Sulfonamide Allergy Verified 10/18/23 13:57 Antibiotics) - Past Medical History Past Medical History: Yes Neurological History: Peripheral Neuropathy ENT History: No Pertinent History Cardiac History: Angina, Arrhythmia Respiratory History: No Pertinent History Endocrine Medical History: Diabetes Type II Musculoskelatal History: Osteoarthritis GI Medical History: No Pertinent History History: No Pertinent History Pyscho-Social History: No Pertinent History Male Reproductive Disorders: No Pertinent History Comment: HISTORY OF B LE WOUNDS, PARTIAL SEPTUS INVERTUS, RUPTURED L ROTATOR CUFF. - Past Surgical History Past Surgical History: Yes Neuro Surgical History: No Pertinent History Cardiac History: No Pertinent History Respiratory Surgery: No Pertinent History GI Surgical History: No Pertinent History Genitourinary Surgical Hx: No Pertinent History Musculskeletal Surgical Hx: No Pertinent History Male Surgical History: No Pertinent History Other Surgical History: PINWHEEL DRAIN IN BACK TO DRAIN FLUIDS_DONE BY [employer] MEZA 2021 - Social History Smoking Status: Never smoker Exposure to second hand smoke: Yes Alcohol: None Drug Use: none - Social Determinants of Health Will the patient participate in the screening: Yes Do you worry about a steady place to live?: Yes Do you have any problems with any of the following?: No known problems In the past 12 months,have you had to go without utilities?: No Have you or anyone in your house had to go without enough: Yes Transportation Issues: No Has anyone in your support network made you feel unsafe?: No Does the patient want assistance with any of the above?: No Physical Exam - General General Appearance: mild distress - Neuro Neurologic: Epicritic and protopathic - Vascular Peripheral Pulses: Posterior tibialis: 2+, Dorsalis-Pedis: 2+ Capillary Refill Time: < 3 seconds Hair Growth: Symmetrical and Bilateral (negative) Varicosities: Positive Edema: Pitting Edema Degree: 3+ - Narrative Narrative Physical Exam: Podiatry Physical Exam Results - Labs Lab/Micro Results: Lab Results-Last 24 Hours 02/03/24 02/03/24 02/03/24 Range/Units 19:58 19:58 19:58 WBC 8.4 (4.0-10.5) x10^3/uL RBC 4.53 (4.1-5.6) x10^6/uL Hgb 10.1 L (12.5-18.0) g/dL Hct 33.3 L (42-50) % MCV 73.5 L (78-100) fL MCH 22.3 L (26-32) pg MCHC 30.3 L (32-36) g/dL RDW 15.5 H (11.5-14.0) % Plt Count 283 (150-450) x10^3/uL MPV 9.7 (7.5-11.0) fL Sodium 141 (135-145) mmol/L Potassium 3.8 (3.5-5.1) mmol/L Chloride 101 (98-107) mmol/L Carbon Dioxide 32 H (22-30) mmol/L Anion Gap 11.0 (5-15) MEQ/L BUN 10 (9-20) mg/dL Creatinine 0.69 (0.66-1.25) mg/dL Estimated GFR 106.6 ML/MIN Glucose 219 H (74-106) mg/dL Hemoglobin A1c 7.64 H (4.5-6.0) % Calcium 8.3 L (8.4-10.2) mg/dL Total Bilirubin 0.40 (0.2-1.3) mg/dL AST 12 L (17-59) U/L ALT 11 (0-50) U/L Alkaline Phosphatase 78 (38-126) U/L Serum Total Protein 7.1 (6.3-8.2) g/dL Albumin 3.6 (3.5-5.0) g/dL Triglycerides (30-150) mg/dL Cholesterol (50-200) mg/dL LDL Cholesterol (30-100) mg/dL HDL Cholesterol (40-60) mg/dL Heart Disease Risk Ratio 02/04/24 02/04/24 02/04/24 Range/Units 04:48 04:48 04:48 WBC 9.3 (4.0-10.5) x10^3/uL RBC 4.76 (4.1-5.6) x10^6/uL Hgb 10.5 L (12.5-18.0) g/dL Hct 35.2 L (42-50) % MCV 73.9 L (78-100) fL MCH 22.1 L (26-32) pg MCHC 29.8 L (32-36) g/dL RDW 15.6 H (11.5-14.0) % Plt Count 370 (150-450) x10^3/uL MPV 10.0 (7.5-11.0) fL Sodium 140 (135-145) mmol/L Potassium 4.3 (3.5-5.1) mmol/L Chloride 100 (98-107) mmol/L Carbon Dioxide 34 H (22-30) mmol/L Anion Gap 10.1 (5-15) MEQ/L BUN 13 (9-20) mg/dL Creatinine 0.80 (0.66-1.25) mg/dL Estimated GFR 102.0 ML/MIN Glucose 127 H (74-106) mg/dL Hemoglobin A1c (4.5-6.0) % Calcium 8.6 (8.4-10.2) mg/dL Total Bilirubin 0.50 (0.2-1.3) mg/dL AST 13 L (17-59) U/L ALT 9 (0-50) U/L Alkaline Phosphatase 84 (38-126) U/L Serum Total Protein 7.7 (6.3-8.2) g/dL Albumin 3.9 (3.5-5.0) g/dL Triglycerides 100 (30-150) mg/dL Cholesterol 165 (50-200) mg/dL LDL Cholesterol 122 H (30-100) mg/dL HDL Cholesterol 36 L (40-60) mg/dL Heart Disease Risk Ratio 5.0 Microbiology 02/03/24 Unknown Stool Culture Result 3 - Final Stool Not Reportable Stool Culture Result 4 - Final Not Reportable Stool Culture Organism Suscept - Final Not Reportable Campylobacter Result 1 - Final Not Reportable Campylobacter Result 2 - Final Not Reportable Campylobactor Result 3 - Final Not Reportable Campylobacter Result 4 - Final Not Reportable Campylobactor Susceptibility - Final Not Reportable 02/03/24 Unknown C. difficile Toxin B Result 1 - Final Stool Not Reportable C. difficile Toxin B Result 2 - Final Not Reportable C. difficile Toxin B Result 3 - Final Not Reportable C. difficile Toxin B Result 4 - Final Not Reportable Antimicrobic Susceptibility - Final Not Reportable Accuchecks Date 02/04/24 Date 02/03/24 Time 07:05 Time 21:00 Assessment/Plan (1) Uncontrolled diabetes mellitus Current Visit: No Status: Chronic Qualifiers: Diabetes mellitus type: type 2 Glycemic state: with hyperglycemia Qualified Code(s): E11.65 - Type 2 diabetes mellitus with hyperglycemia Code(s): SGA9925 - (2) Multiple wounds of skin Current Visit: No Status: Acute Code(s): T14.8XXA - OTHER INJURY OF UNSP ECIFIED BODY REGION, INITIAL ENCOUNTER (3) Ulcer of extremity due to chronic venous insufficiency Current Visit: No Status: Chronic Assessment & Plan: Patient examination and evaluation. Patient presents today with a significant amount of venous drainage with green discoloration on the bandage. Patient with near complete circumferential desquamation of the left leg and worsening of his venous insufficiency. Ulcer to the left lower extremity measuring 10.3 x 11 7 x 0.2 cm ulceration to the right anterior lateral leg measuring 4.0 x 4.2 x 0.2 Ulcer to the right posterior lateral leg measuring 7.6 x 5.2 x 0.1 Dakin's wash performed to the bilateral lower extremity, iodine paint with a dressing consisting of Adaptic 4 x 4's Unna boot Curlex and Coban secondary to patient's venous insufficiency ulcers At this time given patient's disposition recommendation has been made for IV antibiotics in an inpatient setting and careful monitoring. Discussed with Dr. Rashawn BERNABE and Maria R Meléndez NP. Vancomycin zosyn for now until preliminary on cultures. Recommendations also made for diuresis secondary to patient's significant venous insufficiency to the bilateral lower extremity and failure of outpatient management- Medicine managing for now. Code(s): L98.499 - NON-PRESSURE CHRONIC ULCER OF SKIN OF SITES W UNSP SEVERITY; I87.2 - VENOUS INSUFFICIENCY (CHRONIC) (PERIPHERAL) (4) Onychomycosis Current Visit: No Status: Acute Code(s): B35.1 - TINEA UNGUIUM (5) Atrial fibrillation with RVR Current Visit: No Status: Chronic Code(s): I48.91 - UNSPECIFIED ATRIAL FIBRILLATION (6) Major depressive disorder Current Visit: No Status: Chronic Code(s): F32.9 - MAJOR DEPRESSIVE DISORDER, SINGLE EPISODE, UNSPECIFIED (7) Peripheral neuropathy Current Visit: No Status: Chronic Code(s): G62.9 - POLYNEUROPATHY, UNSPECIFIED
[2024-02-04] MEDS: HUMALOG SQ SCH (09:02)
[2024-02-04] MEDS: Lasix 40 MG/4 ML IV SCH (09:58)
[2024-02-04] MEDS: Lantus Insulin SQ SCH (09:58)
[2024-02-04] MEDS: Acidophilus TABLET PO SCH (09:58)
[2024-02-04] MEDS: XARELTO 10 MG TABLET PO SCH (09:58)
[2024-02-04] MEDS: VANCOMYCIN 2 GRAM/400 ML BAG 2 GM/400 ML PIGGYBACK IV SCH (10:00)
[2024-02-04] MEDS ORDERED: NON-FORMULARY ITEM (Rivaroxaban [Xarelto] 20 MG Tablet) PO SCH (10:00)
[2024-02-04] MEDS: TYLENOL 325 MG PO PRN (11:42)
[2024-02-04] MEDS: PHARMACY DOSING REQUIRED: VANCOMYCIN IV STA (18:34)
[2024-02-05 05:55] LABS: Absolute Neutrophil Ct (ANC) 6.21 x10^3/uL (1.4-6.9); BASOPHIL % 0.5 % (0.0-0.4); Basophil (Absolute #) 0.04 x10^3/uL (0-0.4); Eosinophil % 5.2 % (0.00-5.0); Eosinophil (Absolute #) 0.44 x10^3/uL (0-0.5); Hematocrit 33.8 % (42-50); Hemoglobin 9.9 g/dL (12.5-18.0); IMMATURE GRAN # 0.03 x10^3u/L (0.00-0.03); IMMATURE GRAN % 0.4 % (0.00-0.4); Lymphocyte (Absolute #) 0.99 x10^3/uL (1.0-4.6); Lymphocytes % 11.8 % (24.0-44.0); Mean Cell Volume 74.8 fL (78-100); Mean Corpuscular Hemoglobin 21.9 pg (26-32); Mean Corpuscular Hgb Concent. 29.3 g/dL (32-36); Mean Platelet Volume 9.9 fL (7.5-11.0); Monocyte (Absolute #) 0.68 x10^3/uL (0.0-1.3); Monocytes % 8.1 % (0.0-12.0); Platelet Count 306 x10^3/uL (150-450); Red Blood Count 4.52 x10^6/uL (4.1-5.6); Red Cell Distribution Width 15.7 % (11.5-14.0); White Blood Count 8.4 x10^3/uL (4.0-10.5)
[2024-02-05 06:09] LABS: ALBUMIN 3.6 g/dL (3.5-5.0); ANION GAP 7.6 MEQ/L (5-15); BILIRUBIN,TOTAL 0.3 mg/dL (0.2-1.3); Calcium 8.4 mg/dL (8.4-10.2); Creatinine 1 0.82 mg/dL (0.66-1.25); EST GLOMERULAR FILTRATION RATE 101.2 ML/MIN; Potassium 4.1 mmol/L (3.5-5.1); Total Protein 7.2 g/dL (6.3-8.2)
--- NOTE | 2024-02-05 06:20 | PCM.NOTE ---
Date and Time: 02/05/24 0616 Subjective Assessment: 58 year old male, referred by podiatry for direct admit 02/03/24 for cellulitis after patient presented to their office with BLE edema, erythema, and noted green drainage. Podiatry will be following patient during his hospitalization. BLE currently wrapped. Cultures have been obtained of drainage. Patient does have a penicillin allergy. Initial coverage with vancomycin as well as aztreonam and lasix. Culture with gram negative ID, vanc discontinued. Consider ID on discharge as well as continued wound therapy. 02/04/24: Met with patient bedside. Podiatry nurse present/wrapping legs. BLE are improving. Cultures are pending. Patient does have areas of excoriation under folds and multiple open wounds which we have consulted wound therapy. Patient is very reluctant to let anyone look at these areas as one is on the scrotum. Patient states he has been treated OP for wounds in the past, I feel he could benefit for further wound therapy on discharge. 02/04: No overnight events noted. Discussed wound culture findings of gram negative ID. Vanc has been discontinued. Additional wound culture from right posterior thigh taken yesterday. Labs and vitals stable today. Denies fever,cough, sob, cp, abdominal pain, MCGUIRE, dizziness, N/V/D. - Review of Systems Constitutional: No Symptoms Eyes: No Symptoms Ears, Nose, & Throat: No Symptoms Respiratory: No Symptoms Cardiac: No Symptoms Abdominal/Gastrointestinal: No Symptoms Genitourinary Symptoms: No Symptoms Musculoskeletal: No Symptoms Skin: Skin Lesions (Multiple open areas to right thigh, left shoulder, neck, left jaw, Left latera upper arm, and scrotum ) Neurological: No Symptoms Psychological: No Symptoms Endocrine: No Symptoms Hematologic/Lymphatic: No Symptoms Immunological/Allergic: No Symptoms Objective Exam General Appearance: no apparent distress Neurologic Exam: alert, oriented x 3, cooperative Skin Exam: other (Multiple open areas to right thigh, left shoulder, neck, left jaw, Left latera upper arm, and scrotum) Wound Assessment: Skin/Wound Assessment Wound/Incision Assessment Start: 02/03/24 17:12 Text: Status: Active Freq: Q6H Protocol: Document 02/04/24 23:57 LB (Rec: 02/05/24 00:04 LB [id number]) Wound/Incision Assessment Medial Buttock Wound Assessment Shift Assessment Wound Type reddened area Dressing Status Dry & Intact Wound Bed Greatest Portion Red (Granulation) Wound Bed Lesser Portion Red (Granulation) Comment Pt also has small open area on scrotum. Barrier cream given to pt to apply prn, open to air Left Upper Posterior Shoulder Wound Assessment Shift Assessment Wound Type healing wounds General Appearance Open to air Comment scabbed areas Left Upper Lateral Arm Wound Assessment Shift Assessment Wound Type healing wounds General Appearance Open to air Comment scabbed areas Left Upper Jaw Wound Assessment Shift Assessment Wound Type healing wound Wound Stage Non Pressure Wound General Appearance Open to air Comment wound in rust Anterior Chest Wound Assessment Shift Assessment Wound Type reddened areas General Appearance Open to air,Reddened Comment reddened areas in bilateral chest folds Right Posterior Thigh Wound Assessment Shift Assessment Wound Type pt reports ruptured varicose vein Dressing Status Dry & Intact Secondary Dressing mepilex Comment dressing CDI Wound Photo Photo Taken Yes Eye Exam: PERRL Ears, Nose, Throat Exam: moist mucous membranes Neck Exam: normal inspection, full range of motion Respiratory Exam: normal breath sounds, lungs clear Cardiovascular Exam: regular rate/rhythm, normal heart sounds Gastrointestinal/Abdomen Exam: soft, normal bowel sounds Extremity Exam: swelling (BLE with compression dressings) Back Exam: normal inspection Objective Data Vital Signs: Vital Signs - 24 hr Temp Pulse Resp BP Pulse Ox 02/05/24 03:38 98.7 F 64 18 130/63 96 02/04/24 23:47 98.6 F 61 18 118/58 97 02/04/24 19:48 98.1 F 63 18 138/63 99 02/04/24 16:00 97.4 F 58 L 13 129/63 99 02/04/24 12:00 97.8 F 61 14 118/56 93 L 02/04/24 07:05 97.5 F 60 14 115/56 99 Pain Assessment - Last Documented Pain Intensity 0 Pain Scale Used 0-10 Pain Scale Intake and Output: Intake & Output 02/02/24 02/03/24 02/04/24 02/05/24 11:59 11:59 11:59 11:59 Intake Total 1520 3490 Balance 1520 3490 Weight 122 kg Lab Results: Lab Results-Last 24 Hours 02/05/24 02/05/24 Range/Units 05:42 05:42 WBC 8.4 (4.0-10.5) x10^3/uL RBC 4.52 (4.1-5.6) x10^6/uL Hgb 9.9 L (12.5-18.0) g/dL Hct 33.8 L (42-50) % MCV 74.8 L (78-100) fL MCH 21.9 L (26-32) pg MCHC 29.3 L (32-36) g/dL RDW 15.7 H (11.5-14.0) % Plt Count 306 (150-450) x10^3/uL MPV 9.9 (7.5-11.0) fL Gran % 74.0 H (36.0-66.0) % Immature Gran % (Auto) 0.4 (0.00-0.4) % Nucleat RBC Rel Count 0.0 (0.00-0.1) % Eos # (Auto) 0.44 (0-0.5) x10^3/uL Immature Gran # (Auto) 0.03 (0.00-0.03) x10^3u/L Absolute Lymphs (auto) 0.99 L (1.0-4.6) x10^3/uL Absolute Monos (auto) 0.68 (0.0-1.3) x10^3/uL Absolute Nucleated RBC 0.00 (0.00-0.01) x10^3u/L Lymphocytes % 11.8 L (24.0-44.0) % Monocytes % 8.1 (0.0-12.0) % Eosinophils % 5.2 H (0.00-5.0) % Basophils % 0.5 (0.0-0.4) % Absolute Granulocytes 6.21 (1.4-6.9) x10^3/uL Basophils # 0.04 (0-0.4) x10^3/uL Sodium 139 (135-145) mmol/L Potassium 4.1 (3.5-5.1) mmol/L Chloride 100 (98-107) mmol/L Carbon Dioxide 36 H (22-30) mmol/L Anion Gap 7.6 (5-15) MEQ/L BUN 15 (9-20) mg/dL Creatinine 0.82 (0.66-1.25) mg/dL Estimated GFR 101.2 ML/MIN Glucose 173 H (74-106) mg/dL Calcium 8.4 (8.4-10.2) mg/dL Total Bilirubin 0.30 (0.2-1.3) mg/dL AST 11 L (17-59) U/L ALT 9 (0-50) U/L Alkaline Phosphatase 79 (38-126) U/L Serum Total Protein 7.2 (6.3-8.2) g/dL Albumin 3.6 (3.5-5.0) g/dL Multi-Disciplinary Progress Notes: Multi-Disciplinary Progress Notes 02/04/24 13:01 Case Management Note by Erika Shepard PATIENT AGREEABLE TO REHAB STAY AFTER DC FROM HOSPITAL. REFERRAL FAXED TO [facility] SO CAN OBTAIN AUTH FOR ADMISSION TO FACILITY. LIKELY TO ACCEPT PENDING AUTHORIZATION. Initialized on 02/04/24 13:01 - END OF NOTE 02/04/24 12:42 Physical Therapy Note by Spencer(L#[id number])Ara ASSESSED PT'S SKIN PER ORDER. PT. HAS MULIPLE DRY SCABBED AREAS THAT ARE NOT DRAINING ENOUGH TO CULTURE. HAS LARGE ABSCESS APPEARING AREA R POSTERIOR THIGH THAT IS DRAINING ORDER OBTAINED FROM REGULATORY AUDITOR TO CX THIS AREA. RN TO PERFORM AND THEN CLEAN W/ HIBICLENS AND APPLY BORDERED GAUZE AND CHANGE DAILY. PT. SHOULD CLEANSE W/ HIBICLENS. ZINC OXIDE AND BARRIER CREAM SHOULD BE APPLED TO FOLDS AND CEDRIC AREA. Initialized on 02/04/24 12:42 - END OF NOTE 02/04/24 09:29 Physical Therapy Note by Spencer(L#[id number])Ara SPOKE W/ PT. THIS DATE. PT. NEEDS TO SCHEDULE W/ OP P.T. FOR UNNA BOOT AND WOUND CARE BEFORE D/C . P.T. HAS AUTH FOR OP W/C AND HAVE NOT BEEN ABLE TO REACH PT. BY PHONE. Initialized on 02/04/24 09:29 - END OF NOTE 02/04/24 07:36 Pharmacy Note by Jhonatan Britt Pharmacokinetic dosing service Date: 11/06/2023 Time: 0730 Objective: Patient: Jeff Taylor Floor: 104 Age: 58 yo Serum creatinine: 0.8 mg/dL Height: 66 Inches Weight (kg): 122 Diagnosis: Cellulitis Bilateral Legs Relevant medical/social history: Cultures and sensitivities: Wound culture pending Other labs: wbc = 9.3 Assessment: IBW (kg): 63.80 Dosing wt(kg): 122 Estimated Creatinine clearance (ml/min): 89.7 CRCL method: Cockcroft and Gault using ibw(default). Drug selected: Vancomycin Loading dose (mg): 0 Vd (liters): 91.5 (factor used: 0.75 L/kg) Luiz (hr-1): 0.079 Half life (hrs): 8.77 Recommended dose: 2000 mg Interval: 12 hrs Infusion time (hrs): 2.0 Predicted peak (mcg/mL): 33.0 Predicted trough (mcg/mL): 14.98 Total body weight is being used for vancomycin dosing. Renal function is stable [ xxx] /unstable [ ] Recommendations: Give Vancomycin 2000 mg q 12 hrs with an expected Cpeak of 33.0 mcg/ml and an expected Ctrough of 14.98 mcg/ml Renal dosing of other antibiotics (review renal dosing of other medications and list guidelines here): none Thank you for the consult, will continue to follow. Signature: Tim Britt TROUGH DUE? 02/06/2024 0930 Initialized on 02/04/24 07:36 - END OF NOTE Assessment/Plan (1) Cellulitis Current Visit: Yes Status: Acute Assessment & Plan: -Vanc/Aztreonam started, will continue, follow cultures -Podiatry following, will continue dressing changes -keep legs elevated -Cultures pending 02/04: -Culture with gram - ID, vanc discontinued, follow cultures -edema improving -xray left foot Code(s): L03.90 - CELLULITIS, UNSPECIFIED (2) Chronic diarrhea Current Visit: Yes Status: Acute Assessment & Plan: -Continue probiotics/dc flagyl -this is chronic -stool studies pending -Consider Cdiff as pt has been on mult antibiotics 02/04: -improved, only 1 BM since admission Code(s): K52.9 - NONINFECTIVE GASTROENTERITIS AND COLITIS, UNSPECIFIED (3) Multiple wounds of skin Current Visit: No Status: Acute Assessment & Plan: -upper left thigh, Left upper back, BLLE -Bacitracin ointment BID to affected areas -Pics documented in chart -BLE ext wrapped per podiatry -Wound therapy consult, appreciate recs Code(s): T14.8XXA - OTHER INJURY OF UNSPECIFIED BODY REGION, INITIAL ENCOUNTER (4) Atrial fibrillation with RVR Current Visit: No Status: Chronic Assessment & Plan: -H/O on Xarelto -Tele Code(s): I48.91 - UNSPECIFIED ATRIAL FIBRILLATION (5) HTN (hypertension) Current Visit: No Status: Chronic Assessment & Plan: -Stable, continue home meds, adjust as appropriate Code(s): I10 - ESSENTIAL (PRIMARY) HYPERTENSION (6) Hyperlipidemia Current Visit: No Status: Chronic Assessment & Plan: - + hx- not on any meds - Lipid panel pending -Consider statin pending results Code(s): E78.5 - HYPERLIPIDEMIA, UNSPECIFIED (7) Ulcer of extremity due to chronic venous insufficiency Current Visit: No Status: Chronic Assessment & Plan: -Podiatry following, wound pictures in chart -IV abx with vanc/azotrenam started, will follow cultures -Consider ID on discharge 02/04: -vanc d/c - continue azotrenam Code(s): L98.499 - NON-PRESSURE CHRONIC ULCER OF SKIN OF SITES W UNSP SEVERITY; I87.2 - VENOUS INSUFFICIENCY (CHRONIC) (PERIPHERAL) (8) Uncontrolled diabetes mellitus Current Visit: No Status: Chronic Qualifiers: Diabetes mellitus type: type 2 Glycemic state: with hyperglycemia Qualified Code(s): E11.65 - Type 2 diabetes mellitus with hyperglycemia Assessment & Plan: - Continue Humaong 10 untis TID w/meals - pt bs dropping - Continue Lantus 54 units daily - low dose humalog s/s - accuchecks ac/hs -a1c 7.64, much better controlled since last visit VTE: Xarelto Next of KIN: Amor Loaiza [phone] D/C plan: 2-3 days Code status: SCO/DNR Code(s): L03.90 - CELLULITIS, UNSPECIFIED (2) Chronic diarrhea Current Visit: Yes Status: Acute Code(s): K52.9 - NONINFECTIVE GASTROENTERI TIS AND COLITIS, UNSPECIFIED (3) Multiple wounds of skin Current Visit: No Status: Acute Code(s): T14.8XXA - OTHER INJURY OF UNSPECIFIED BODY REGION, INITIAL ENCOUNTER (4) Atrial fibrillation with RVR Current Visit: No Status: Chronic Code(s): I48.91 - UNSPECIFIED ATRIAL FIBRILLATION (5) HTN (hypertension) Current Visit: No Status: Chronic Code(s): I10 - ESSENTIAL (PRIMARY) HYPERTENSION (6) Hyperlipidemia Current Visit: No Status: Chronic Code(s): E78.5 - HYPERLIPIDEMIA, UNSPECIFIED (7) Ulcer of extremity due to chronic venous insufficiency Current Visit: No Status: Chronic Code(s): L98.499 - NON-PRESSURE CHRONIC ULCER OF SKIN OF SITES W UNSP SEVERITY; I87.2 - VENOUS INSUFFICIENCY (CHRONIC) (PERIPHERAL) (8) Uncontrolled diabetes mellitus Current Visit: No Status: Chronic Qualifiers: Diabetes mellitus type: type 2 Glycemic state: with hyperglycemia Qualified Code(s): E11.65 - Type 2 diabetes mellitus with hyperglycemia Code(s): [id number] -
--- NOTE | 2024-02-05 10:48 | XRAY ---
CLINICAL HISTORY: cellulitis COMPARISON: None. TECHNIQUE: X-ray left foot AP, 2 oblique, and lateral views. FINDINGS: The study is degraded by the bandage. A plantar calcaneal spur and a small spur at the insertion of the Achilles tendon are noted. Significant soft tissue swelling is noted. No fracture or bony abnormality is seen. The scanned joints show regular articular surfaces and presreved joint spaces. Cortical margins of the osseous structures are within normal limits. IMPRESSION: 1. Significant soft tissue swelling is noted. 2. A plantar calcaneal spur and small spur at the insertion of Achilles tendon noted. 3. No acute findings. DISCLAIMER:A subtle bone abnormality or fracture may not be readily apparent on x-rays, thus clinical correlation and further imaging including follow up CT, MRI, or follow up x-rays are advised as needed. Electronically Signed by: Linh Mckeon MD. (02/05/2024 10:44:00 EDT)
[2024-02-05] MEDS ORDERED: Sodium Chloride 0.9% 100 ML ONE (22:07)
[2024-02-06 05:53] LABS: Absolute Neutrophil Ct (ANC) 5.61 x10^3/uL (1.4-6.9); BASOPHIL % 0.4 % (0.0-0.4); Basophil (Absolute #) 0.03 x10^3/uL (0-0.4); Eosinophil % 5.6 % (0.00-5.0); Eosinophil (Absolute #) 0.46 x10^3/uL (0-0.5); Hematocrit 34.3 % (42-50); IMMATURE GRAN # 0.03 x10^3u/L (0.00-0.03); IMMATURE GRAN % 0.4 % (0.00-0.4); Lymphocyte (Absolute #) 1.43 x10^3/uL (1.0-4.6); Lymphocytes % 17.5 % (24.0-44.0); Mean Cell Volume 74.9 fL (78-100); Mean Corpuscular Hemoglobin 21.8 pg (26-32); Mean Corpuscular Hgb Concent. 29.2 g/dL (32-36); Monocyte (Absolute #) 0.63 x10^3/uL (0.0-1.3); Monocytes % 7.7 % (0.0-12.0); Neutrophil % 68.4 % (36.0-66.0); Platelet Count 338 x10^3/uL (150-450); Red Blood Count 4.58 x10^6/uL (4.1-5.6); Red Cell Distribution Width 15.6 % (11.5-14.0); White Blood Count 8.2 x10^3/uL (4.0-10.5)
[2024-02-06 06:00] LABS: ALBUMIN 3.6 g/dL (3.5-5.0); ANION GAP 8.5 MEQ/L (5-15); BILIRUBIN,TOTAL 0.3 mg/dL (0.2-1.3); Calcium 8.4 mg/dL (8.4-10.2); Creatinine 1 0.76 mg/dL (0.66-1.25); EST GLOMERULAR FILTRATION RATE 103.5 ML/MIN; Potassium 3.9 mmol/L (3.5-5.1); Total Protein 7.2 g/dL (6.3-8.2)
--- NOTE | 2024-02-06 08:29 | PCM.NOTE ---
Date and Time: 02/06/24 0813 Subjective Assessment: Subjective Assessment: 58 year old male, referred by podiatry for direct admit 02/03/24 for cellulitis after patient presented to their office with BLE edema, erythema, and significant amounts of green drainage. I have reviewed documentation noting circumferential desquamation of the left leg and worsening venous insufficiency with debridement performed in office to the LLE, right anterior lateral leg wound, and right posterior leg wound. Podiatry will be following patient during his hospitalization. XRay of left foot with significant tissue swelling. BLE currently wrapped. Cultures have been obtained of drainage. Patient does have a penicillin allergy. Initial coverage with vancomycin as well as aztreonam and lasix. Culture with gram negative ID, vanc discontinued. Consider ID on discharge as well as continued wound therapy. 02/04/24: Met with patient bedside. Podiatry nurse present/wrapping legs. BLE are improving. Cultures are pending. Patient does have areas of excoriation under folds and multiple open wounds which we have consulted wound therapy. Patient is very reluctant to let anyone look at these areas as one is on the scrotum. Patient states he has been treated OP for wounds in the past, I feel he could benefit for further wound therapy on discharge. 02/04: No overnight events noted. Discussed wound culture findings of gram negative ID. Vanc has been discontinued. Additional wound culture from right posterior thigh taken yesterday. Labs and vitals stable today. Denies fever,cough, sob, cp, abdominal pain, MCGUIRE, dizziness, N/V/D. 02/06/24: Met with patient bedside. No overnight events reported. Wound cultures of the right thigh and left lower leg showing pseudomonas aeruginosa and staphylococcus aureus. Levofloxacin started. BLE less edematous with compression dressings bilaterally. Patient states he is able to ambulate better as the edema improves. Patient is wanting rehab on discharge at [facility]. CM working on this. - Review of Systems Constitutional: No Symptoms Eyes: No Symptoms Ears, Nose, & Throat: No Symptoms Respiratory: No Symptoms Cardiac: No Symptoms Abdominal/Gastrointestinal: No Symptoms Genitourinary Symptoms: No Symptoms Musculoskeletal: No Symptoms Skin: Cellulitis, Skin Lesions Neurological: No Symptoms Psychological: No Symptoms Endocrine: No Symptoms Hematologic/Lymphatic: No Symptoms Immunological/Allergic: No Symptoms Objective Exam General Appearance: no apparent distress Neurologic Exam: alert, oriented x 3, cooperative Skin Exam: other (see wound assessment) Wound Assessment: Skin/Wound Assessment Wound/Incision Assessment Start: 02/03/24 17:12 Text: Status: Active Freq: Q6H Protocol: Document 02/06/24 04:00 AF (Rec: 02/06/24 05:10 AF [id number]) Wound/Incision Assessment Medial Buttock Wound Assessment Shift Assessment Wound Type reddened area Topical Solution/Irrigant Medicated Ointment Comment Pt also has small open area on scrotum. Barrier cream given to pt to apply prn, open to air. Remains true. Pt insists on caring for these intimate areas himself Left Upper Posterior Shoulder Wound Assessment Shift Assessment Wound Type healing wounds Wound Stage Non Pressure Wound Drainage Amount None Drainage Odor None/Absent General Appearance Open to air Topical Solution/Irrigant Medicated Ointment Comment scabbed areas. Cleaned with Hibiclens and Bacitracin ointment reapplied. Left Upper Lateral Arm Wound Assessment Shift Assessment Wound Type healing wounds Wound Stage Non Pressure Wound General Appearance Open to air Topical Solution/Irrigant Medicated Ointment Comment scabbed areas. Cleaned with Hibiclens and bacitracin ointment reapplied. Denies pain in these areas Left Upper Jaw Wound Assessment Shift Assessment Wound Type healing wound Wound Stage Non Pressure Wound General Appearance Open to air Comment wound in rust. Anterior Chest Wound Assessment Shift Assessment Wound Type reddened areas Wound Stage Non Pressure Wound Drainage Amount None General Appearance Open to air,Reddened Comment reddened areas in bilateral chest folds. Pt cleaned areas with warm water and Hibiclens then applied Zinc Oxide and barrier cream, refused RN care ; cares for them himself with set up assistance. Right Posterior Thigh Wound Assessment Shift Assessment Wound Type pt reports ruptured varicose vein Wound Stage Non Pressure Wound Dressing Status Reinforced Secondary Dressing bordered gauze Comment Dressing reinforced at patient 's request. Wound Photo Photo Taken No Eye Exam: PERRL Ears, Nose, Throat Exam: moist mucous membranes Neck Exam: normal inspection, full range of motion Respiratory Exam: normal breath sounds, lungs clear Cardiovascular Exam: regular rate/rhythm, normal heart sounds Gastrointestinal/Abdomen Exam: soft, normal bowel sounds Extremity Exam: inflammation (BLE wrapped in compression dressings), pedal edema Back Exam: normal inspection Objective Data Vital Signs: Vital Signs - 24 hr Temp Pulse Resp BP Pulse Ox 02/06/24 04:00 98.5 F 60 18 113/56 98 02/06/24 00:00 98.3 F 61 15 126/63 99 02/05/24 20:00 98.3 F 63 16 116/63 99 02/05/24 16:00 97.9 F 65 16 133/62 94 L 02/05/24 11:14 98.4 F 90 16 137/68 90 L Pain Assessment - Last Documented Pain Intensity 1 Pain Scale Used 0-10 Pain Scale Intake and Output: Intake & Output 02/03/24 02/04/24 02/05/24 02/06/24 11:59 11:59 11:59 11:59 Intake Total 1520 4210 1969 Balance 1520 4210 1969 Weight 122 kg Lab Results: Lab Results-Last 24 Hours 02/06/24 02/06/24 Range/Units 05:26 05:26 WBC 8.2 (4.0-10.5) x10^3/uL RBC 4.58 (4.1-5.6) x10^6/uL Hgb 10.0 L (12.5-18.0) g/dL Hct 34.3 L (42-50) % MCV 74.9 L (78-100) fL MCH 21.8 L (26-32) pg MCHC 29.2 L (32-36) g/dL RDW 15.6 H (11.5-14.0) % Plt Count 338 (150-450) x10^3/uL MPV 10.0 (7.5-11.0) fL Gran % 68.4 H (36.0-66.0) % Immature Gran % (Auto) 0.4 (0.00-0.4) % Nucleat RBC Rel Count 0.0 (0.00-0.1) % Eos # (Auto) 0.46 (0-0.5) x10^3/uL Immature Gran # (Auto) 0.03 (0.00-0.03) x10^3u/L Absolute Lymphs (auto) 1.43 (1.0-4.6) x10^3/uL Absolute Monos (auto) 0.63 (0.0-1.3) x10^3/uL Absolute Nucleated RBC 0.00 (0.00-0.01) x10^3u/L Lymphocytes % 17.5 L (24.0-44.0) % Monocytes % 7.7 (0.0-12.0) % Eosinophils % 5.6 H (0.00-5.0) % Basophils % 0.4 (0.0-0.4) % Absolute Granulocytes 5.61 (1.4-6.9) x10^3/uL Basophils # 0.03 (0-0.4) x10^3/uL Sodium 141 (135-145) mmol/L Potassium 3.9 (3.5-5.1) mmol/L Chloride 99 (98-107) mmol/L Carbon Dioxide 37 H (22-30) mmol/L Anion Gap 8.5 (5-15) MEQ/L BUN 18 (9-20) mg/dL Creatinine 0.76 (0.66-1.25) mg/dL Estimated GFR 103.5 ML/MIN Glucose 160 H (74-106) mg/dL Calcium 8.4 (8.4-10.2) mg/dL Total Bilirubin 0.30 (0.2-1.3) mg/dL AST 13 L (17-59) U/L ALT 9 (0-50) U/L Alkaline Phosphatase 79 (38-126) U/L Serum Total Protein 7.2 (6.3-8.2) g/dL Albumin 3.6 (3.5-5.0) g/dL Radiology Exams: Radiology Procedures Category Date Time Status FOOT (MINIMUM 3 VIEWS) Stat Exams 02/05/24 08:50 Completed Assessment/Plan (1) Cellulitis Current Visit: Yes Status: Acute Assessment & Plan: -Vanc/Aztreonam started, will continue, follow cultures -Podiatry following, will continue dressing changes -keep legs elevated -Cultures pending 02/04: -Culture with gram - ID, vanc discontinued, follow cultures -edema improving -xray left foot 02/05: -Cultures with pseudomonas aeruginosa and Staphylococcus Aureus with sensitivity to levofloxacin - will change to levofloxacin Code(s): L03.90 - CELLULITIS, UNSPECIFIED (2) Chronic diarrhea Current Visit: Yes Status: Acute Assessment & Plan: -Continue probiotics/dc flagyl -this is chronic -stool studies pending -Consider Cdiff as pt has been on mult antibiotics 02/04: -improved, only 1 BM since admission Code(s): K52.9 - NONINFECTIVE GASTROENTERITIS AND COLITIS, UNSPECIFIED (3) Multiple wounds of skin Current Visit: No Status: Acute Assessment & Plan: -upper left thigh, Left upper back, BLLE -Bacitracin ointment BID to affected areas -Pics documented in chart -BLE ext wrapped per podiatry -Wound therapy consult, appreciate recs 02/06/24: -Wound therapy recs for CLEAN W/ HIBICLENS AND APPLY BORDERED GAUZE AND CHANGE DAILY. PT. SHOULD CLEANSE W/ HIBICLENS. ZINC OXIDE AND BARRIER CREAM SHOULD BE APPLED TO FOLDS AND CEDRIC AREA. -May need wound therapy s/p d/c Code(s): T14.8XXA - OTHER INJURY OF UNSPECIFIED BODY REGION, INITIAL ENCOUNTER (4) Atrial fibrillation with RVR Current Visit: No Status: Chronic Assessment & Plan: -H/O on Xarelto -Tele Code(s): I48.91 - UNSPECIFIED ATRIAL FIBRILLATION (5) HTN (hypertension) Current Visit: No Status: Chronic Assessment & Plan: -Stable, continue home meds, adjust as appropriate Code(s): I10 - ESSENTIAL (PRIMARY) HYPERTENSION (6) Hyperlipidemia Current Visit: No Status: Chronic Assessment & Plan: - + hx- not on any meds - Lipid panel pending -Consider statin pending results Code(s): E78.5 - HYPERLIPIDEMIA, UNSPECIFIED (7) Ulcer of extremity due to chronic venous insufficiency Current Visit: No Status: Chronic Assessment & Plan: -Podiatry following, wound pictures in chart -IV abx with vanc/azotrenam started, will follow cultures -Consider ID on discharge 02/04: -vanc d/c - continue azotrenam 02/05: Cultures with pseudomonas and staph, will change abx to levofloxacin Code(s): L98.499 - NON-PRESSURE CHRONIC ULCER OF SKIN OF SITES W UNSP SEVERITY; I87.2 - VENOUS INSUFFICIENCY (CHRONIC) (PERIPHERAL) (8) Uncontrolled diabetes mellitus Current Visit: No Status: Chronic Qualifiers: Diabetes mellitus type: type 2 Glycemic state: with hyperglycemia Qualified Code(s): E11.65 - Type 2 diabetes mellitus with hyperglycemia Assessment & Plan: - Continue Humaong 10 untis TID w/meals - pt bs dropping - Continue Lantus 54 units daily - low dose humalog s/s - accuchecks ac/hs -a1c 7.64, much better controlled since last visit VTE: Xarelto Next of KIN: Amor Loaiza [phone] D/C plan: 2-3 days Code status: SCO/DNR Code(s): L03.90 - CELLULITIS, UNSPECIFIED Code(s): L03.90 - CELLULITIS, UNSPECIFIED (2) Chronic diarrhea Current Visit: Yes Status: Acute Code(s): K52.9 - NONINFECTIVE GASTROENTERITIS AND COLITIS, UNSPECIFIED (3) Multiple wounds of skin Current Visit: No Status: Acute Code(s): T14.8XXA - OTHER INJURY OF UNSPECIFIED BODY REGION, INITIAL ENCOUNTER (4) Atrial fibrillation with RVR Current Visit: No Status: Chronic Code(s): I48.91 - UNSPECIFIED ATRIAL FIBRILLATION (5) HTN (hypertension) Current Visit: No Status: Chronic Code(s): I10 - ESSENTIAL (PRIMARY) HYPERTENSION (6) Hyperlipidemia Current Visit: No Status: Chronic Code(s): E78.5 - HYPERLIPIDEMIA, UNSPECIFIED (7) Ulcer of extremity due to chronic venous insufficiency Current Visit: No Status: Chronic Code(s): L98.499 - NON-PRESSURE CHRONIC ULCER OF SKIN OF SITES W UNSP SEVERITY; I87.2 - VENOUS INSUFFICIENCY (CHRONIC) (PERIPHERAL) (8) Uncontrolled diabetes mellitus Current Visit: No Status: Chronic Qualifiers: Diabetes mellitus type: type 2 Glycemic state: with hyperglycemia Qu alified Code(s): E11.65 - Type 2 diabetes mellitus with hyperglycemia Code(s): [id number] -
[2024-02-06] MEDS: LEVOFLOXACIN 750MG/150ML D5W 750 MG/150 ML BAG IV SCH (10:33)
[2024-02-06 19:53] LABS: 027 TOX PROD PRESUMPTIVE NEGATIVE (NEGATIVE); TOXIGENIC C. DIFF ORG NEGATIVE (NEGATIVE)
[2024-02-07 04:30] LABS: Absolute Neutrophil Ct (ANC) 6.84 x10^3/uL (1.4-6.9); BASOPHIL % 0.4 % (0.0-0.4); Basophil (Absolute #) 0.04 x10^3/uL (0-0.4); Eosinophil % 4.6 % (0.00-5.0); Eosinophil (Absolute #) 0.43 x10^3/uL (0-0.5); Hematocrit 35.9 % (42-50); Hemoglobin 10.6 g/dL (12.5-18.0); IMMATURE GRAN # 0.02 x10^3u/L (0.00-0.03); IMMATURE GRAN % 0.2 % (0.00-0.4); Lymphocyte (Absolute #) 1.28 x10^3/uL (1.0-4.6); Lymphocytes % 13.8 % (24.0-44.0); Mean Cell Volume 75.1 fL (78-100); Mean Corpuscular Hemoglobin 22.2 pg (26-32); Mean Corpuscular Hgb Concent. 29.5 g/dL (32-36); Mean Platelet Volume 9.9 fL (7.5-11.0); Monocyte (Absolute #) 0.67 x10^3/uL (0.0-1.3); Monocytes % 7.2 % (0.0-12.0); Neutrophil % 73.8 % (36.0-66.0); Platelet Count 383 x10^3/uL (150-450); Red Blood Count 4.78 x10^6/uL (4.1-5.6); Red Cell Distribution Width 15.6 % (11.5-14.0); White Blood Count 9.3 x10^3/uL (4.0-10.5)
[2024-02-07 04:53] LABS: ALBUMIN 3.7 g/dL (3.5-5.0); ANION GAP 9.1 MEQ/L (5-15); BILIRUBIN,TOTAL 0.3 mg/dL (0.2-1.3); Calcium 8.9 mg/dL (8.4-10.2); Creatinine 1 0.96 mg/dL (0.66-1.25); EST GLOMERULAR FILTRATION RATE 91.1 ML/MIN; Total Protein 7.5 g/dL (6.3-8.2)
--- NOTE | 2024-02-07 15:48 | PCM.NOTE ---
Date and Time: 02/07/24 1542 Subjective Assessment: 58 year old male, referred by podiatry for direct admit 02/03/24 for cellulitis after patient presented to their office with BLE edema, erythema, and significant amounts of green drainage. I have reviewed documentation noting circumferential desquamation of the left leg and worsening venous insufficiency with debridement performed in office to the LLE, right anterior lateral leg wound, and right posterior leg wound. Podiatry will be following patient during his hospitalization. XRay of left foot with significant tissue swelling. BLE currently wrapped. Cultures have been obtained of drainage. Patient does have a penicillin allergy. Initial coverage with vancomycin as well as aztreonam and lasix. Culture with psuedomonas/stap aureus, vanc/aztreonam discontinued. Changed to levaquin. Surgery consulted for wound on right posterior thigh. Consider ID on discharge as well as continued wound therapy. 02/07/24: Met with patient bedside, podiatry nurse at bedside changing compression dressings. Patient endorsing pain and edema to BLE greatly improved. Patient concerned about discharging to rehab and not being able to go home first to obtain his clothes and dexcom supplies. Patient wishes to transport himself to facility and leave his vehicle there. Will discuss with CM and nursing facility to see if this is an option. Surgery consulted to evaluate wound on right thigh. Denies fever,cough, sob, cp, abdominal pain, MCGUIRE, dizziness, N/V/D. <CYNTHIA LATIF - Last Filed: 02/07/24 15:42> Date and Time: 02/07/242156 <MANDO BLUE - Last Filed: 02/07/24 21:57> - Review of Systems Constitutional: No Symptoms Eyes: No Symptoms Ears, Nose, & Throat: No Symptoms Respiratory: No Symptoms Cardiac: Edema (BLE) Abdominal/Gastrointestinal: No Symptoms Genitourinary Symptoms: No Symptoms Musculoskeletal: No Symptoms Skin: Cellulitis, Skin Lesions (see wound assessment)) Neurological: No Symptoms Psychological: No Symptoms Endocrine: No Symptoms Hematologic/Lymphatic: No Symptoms Immunological/Allergic: No Symptoms <CYNTHIA LATIF - Last Filed: 02/07/24 15:42> Objective Exam General Appearance: no apparent distress Neurologic Exam: alert, oriented x 3, cooperative Skin Exam: normal color, other (see wound assessment) Wound Assessment: Skin/Wound Assessment Wound/Incision Assessment Start: 02/03/24 17:12 Text: Status: Active Freq: Q6H Protocol: Document 02/07/24 10:00 RF (Rec: 02/07/24 12:14 RF [id number]) Wound/Incision Assessment Medial Buttock Wound Assessment Shift Assessment Wound Type reddened area Comment Pt also has small open area on scrotum, open to air. Barrier cream given to pt to apply prn. Remains true. Pt insists on caring for these intimate areas himself. Remains true. Left Upper Posterior Shoulder Wound Assessment Shift Assessment Wound Type healing wounds Wound Stage Non Pressure Wound Drainage Amount None Drainage Odor None/Absent General Appearance Open to air Comment scabbed areas. Remains true. Left Upper Lateral Arm Wound Assessment Shift Assessment Wound Type healing wounds Wound Stage Non Pressure Wound General Appearance Open to air Comment scabbed areas. Remains true. Left Upper Jaw Wound Assessment Shift Assessment Wound Type healing wound Wound Stage Non Pressure Wound General Appearance Open to air Topical Solution/Irrigant Saline Irrigant Comment wound in rust. Remains true. Anterior Chest Wound Assessment Shift Assessment Wound Type reddened areas Wound Stage Non Pressure Wound Drainage Amount None General Appearance Open to air,Reddened Comment reddened areas in bilateral chest folds. Pt requests to clean and apply barrier ointment, zinc, and Nystatin per self. Right Posterior Thigh Wound Assessment Shift Assessment Wound Type pt reports ruptured varicose vein Wound Stage Non Pressure Wound Dressing Status Changed Secondary Dressing bordered gauze Comment Dressing C/D/I Wound Photo Photo Taken No Eye Exam: PERRL, other (glasses) Ears, Nose, Throat Exam: moist mucous membranes Neck Exam: normal inspection Respiratory Exam: normal breath sounds, lungs clear Cardiovascular Exam: regular rate/rhythm, normal heart sounds Gastrointestinal/Abdomen Exam: soft, normal bowel sounds Extremity Exam: inflammation, pedal edema, swelling Back Exam: normal inspection Male Genitalia Exam: other (lesion to left base of scrotum) <CYNTHIA LATIF - Last Filed: 02/07/24 15:42> Wound Assessment: Skin/Wound Assessment Wound/Incision Assessment Start: 02/03/24 17:12 Text: Status: Active Freq: Q6H Protocol: Document 02/07/24 16:00 RF (Rec: 02/07/24 16:22 RF [id number]) Wound/Incision Assessment Medial Buttock Wound Assessment Shift Assessment Wound Type reddened area Comment Pt also has small open area on scrotum, open to air. Barrier cream given to pt to apply prn. Remains true. Pt insists on caring for these intimate areas himself. Remains true. Left Upper Posterior Shoulder Wound Assessment Shift Assessment Wound Type healing wounds Wound Stage Non Pressure Wound Drainage Amount None Drainage Odor None/Absent General Appearance Open to air Comment scabbed areas. Remains true. Left Upper Lateral Arm Wound Assessment Shift Assessment Wound Type healing wounds Wound Stage Non Pressure Wound General Appearance Open to air Comment scabbed areas. Remains true. Left Upper Jaw Wound Assessment Shift Assessment Wound Type healing wound Wound Stage Non Pressure Wound General Appearance Open to air Topical Solution/Irrigant Saline Irrigant Comment wound in rust. Remains true. Anterior Chest Wound Assessment Shift Assessment Wound Type reddened areas Wound Stage Non Pressure Wound Drainage Amount None General Appearance Open to air,Reddened Comment reddened areas in bilateral chest folds. Pt requests to clean and apply barrier ointment, zinc, and Nystatin per self. Right Posterior Thigh Wound Assessment Shift Assessment Wound Type pt reports ruptured varicose vein Wound Stage Non Pressure Wound Dressing Status Changed Secondary Dressing bordered gauze Comment Dressing C/D/I Wound Photo Photo Taken No <MANDO BLUE - Last Filed: 02/07/24 21:57> Objective Data Vital Signs: Vital Signs - 24 hr Temp Pulse Resp BP Pulse Ox 02/07/24 11:25 97.1 F 61 17 138/91 98 02/07/24 07:22 97.8 F 62 17 132/60 98 02/07/24 04:00 98.0 F 66 18 121/58 96 02/06/24 23:57 98.5 F 62 18 118/56 99 02/06/24 20:45 98.2 F 62 16 118/56 99 02/06/24 20:00 98.2 F 62 16 118/56 99 02/06/24 16:30 98.5 F 58 L 16 140/63 94 L Pain Assessment - Last Documented Pain Intensity 0 Pain Scale Used 0-10 Pain Scale Intake and Output: Intake & Output 02/05/24 02/06/24 02/07/24 02/08/24 11:59 11:59 11:59 11:59 Intake Total 4213 2210 1780 240 Balance 4210 2210 1780 240 Weight 122 kg Lab Results: Lab Results-Last 24 Hours 02/06/24 02/06/24 02/07/24 Range/Units 19:03 21:11 04:15 WBC 9.3 (4.0-10.5) x10^3/uL RBC 4.78 (4.1-5.6) x10^6/uL Hgb 10.6 L (12.5-18.0) g/dL Hct 35.9 L (42-50) % MCV 75.1 L (78-100) fL MCH 22.2 L (26-32) pg MCHC 29.5 L (32-36) g/dL RDW 15.6 H (11.5-14.0) % Plt Count 383 (150-450) x10^3/uL MPV 9.9 (7.5-11.0) fL Gran % 73.8 H (36.0-66.0) % Immature Gran % (Auto) 0.2 (0.00-0.4) % Nucleat RBC Rel Count 0.0 (0.00-0.1) % Eos # (Auto) 0.43 (0-0.5) x10^3/uL Immature Gran # (Auto) 0.02 (0.00-0.03) x10^3u/L Absolute Lymphs (auto) 1.28 (1.0-4.6) x10^3/uL Absolute Monos (auto) 0.67 (0.0-1.3) x10^3/uL Absolute Nucleated RBC 0.00 (0.00-0.01) x10^3u/L Lymphocytes % 13.8 L (24.0-44.0) % Monocytes % 7.2 (0.0-12.0) % Eosinophils % 4.6 (0.00-5.0) % Basophils % 0.4 (0.0-0.4) % Absolute Granulocytes 6.84 (1.4-6.9) x10^3/uL Basophils # 0.04 (0-0.4) x10^3/uL Sodium (135-145) mmol/L Potassium (3.5-5.1) mmol/L Chloride (98-107) mmol/L Carbon Dioxide (22-30) mmol/L Anion Gap (5-15) MEQ/L BUN (9-20) mg/dL Creatinine (0.66-1.25) mg/dL Estimated GFR ML/MIN Glucose (74-106) mg/dL POC Glucometer 178 H (74 to 106) mg/dL Calcium (8.4-10.2) mg/dL Total Bilirubin (0.2-1.3) mg/dL AST (17-59) U/L ALT (0-50) U/L Alkaline Phosphatase (38-126) U/L Serum Total Protein (6.3-8.2) g/dL Albumin (3.5-5.0) g/dL C. difficile Screen NEGATIVE (NEGATIVE) C.difficile 027-NAP1-B1 PRESUMPTIVE NEGATIVE (NEGATIVE) 02/07/24 02/07/24 02/07/24 Range/Units 04:15 07:02 07:02 WBC (4.0-10.5) x10^3/uL RBC (4.1-5.6) x10^6/uL Hgb (12.5-18.0) g/dL Hct (42-50) % MCV (78-100) fL MCH (26-32) pg MCHC (32-36) g/dL RDW (11.5-14.0) % Plt Count (150-450) x10^3/uL MPV (7.5-11.0) fL Gran % (36.0-66.0) % Immature Gran % (Auto) (0.00-0.4) % Nucleat RBC Rel Count (0.00-0.1) % Eos # (Auto) (0-0.5) x10^3/uL Immature Gran # (Auto) (0.00-0.03) x10^3u/L Absolute Lymphs (auto) (1.0-4.6) x10^3/uL Absolute Monos (auto) (0.0-1.3) x10^3/uL Absolute Nucleated RBC (0.00-0.01) x10^3u/L Lymphocytes % (24.0-44.0) % Monocytes % (0.0-12.0) % Eosinophils % (0.00-5.0) % Basophils % (0.0-0.4) % Absolute Granulocytes (1.4-6.9) x10^3/uL Basophils # (0-0.4) x10^3/uL Sodium 140 (135-145) mmol/L Potassium 4.0 (3.5-5.1) mmol/L Chloride 99 (98-107) mmol/L Carbon Dioxide 36 H (22-30) mmol/L Anion Gap 9.1 (5-15) MEQ/L BUN 23 H (9-20) mg/dL Creatinine 0.96 (0.66-1.25) mg/dL Estimated GFR 91.1 ML/MIN Glucose 165 H (74-106) mg/dL POC Glucometer 159 H 159 H (74 to 106) mg/dL Calcium 8.9 (8.4-10.2) mg/dL Total Bilirubin 0.30 (0.2-1.3) mg/dL AST 15 L (17-59) U/L ALT 10 (0-50) U/L Alkaline Phosphatase 88 (38-126) U/L Serum Total Protein 7.5 (6.3-8.2) g/dL Albumin 3.7 (3.5-5.0) g/dL C. difficile Screen (NEGATIVE) C.difficile 027-NAP1-B1 (NEGATIVE) 02/07/24 Range/Units 11:06 WBC (4.0-10.5) x10^3/uL RBC (4.1-5.6) x10^6/uL Hgb (12.5-18.0) g/dL Hct (42-50) % MCV (78-100) fL MCH (26-32) pg MCHC (32-36) g/dL RDW (11.5-14.0) % Plt Count (150-450) x10^3/uL MPV (7.5-11.0) fL Gran % (36.0-66.0) % Immature Gran % (Auto) (0.00-0.4) % Nucleat RBC Rel Count (0.00-0.1) % Eos # (Auto) (0-0.5) x10^3/uL Immature Gran # (Auto) (0.00-0.03) x10^3u/L Absolute Lymphs (auto) (1.0-4.6) x10^3/uL Absolute Monos (auto) (0.0-1.3) x10^3/uL Absolute Nucleated RBC (0.00-0.01) x10^3u/L Lymphocytes % (24.0-44.0) % Monocytes % (0.0-12.0) % Eosinophils % (0.00-5.0) % Basophils % (0.0-0.4) % Absolute Granulocytes (1.4-6.9) x10^3/uL Basophils # (0-0.4) x10^3/uL Sodium (135-145) mmol/L Potassium (3.5-5.1) mmol/L Chloride (98-107) mmol/L Carbon Dioxide (22-30) mmol/L Anion Gap (5-15) MEQ/L BUN (9-20) mg/dL Creatinine (0.66-1.25) mg/dL Estimated GFR ML/MIN Glucose (74-106) mg/dL POC Glucometer 173 H (74 to 106) mg/dL Calcium (8.4-10.2) mg/dL Total Bilirubin (0.2-1.3) mg/dL AST (17-59) U/L ALT (0-50) U/L Alkaline Phosphatase (38-126) U/L Serum Total Protein (6.3-8.2) g/dL Albumin (3.5-5.0) g/dL C. difficile Screen (NEGATIVE) C.difficile 027-NAP1-B1 (NEGATIVE) Multi-Disciplinary Progress Notes: Multi-Disciplinary Progress Notes 02/07/24 14:11 Physical Therapy Note by Spencer(Zackary#[id number])Ara ASSESSED SKIN AGAIN TODAY. PODIATRY STAFF HAD CHANGED UNNA BOOTS EARLIER THIS A.M. R POSTERIOR THIGH ABSCESS - NOTE W/ SLIGHTLY LESS ERYTHEMA; VERY TENDER TO TOUCH W/ PURPLISH RED NUCLEUS. CX + FOR PSEUDOMONAS. DISCUSSED W/ CYNTHIA LATIF. CIRCULAR KNIFE CUTTER MACHINE, THAT PT. WOULD BENEFIT FROM SX CONSULT TO R/O WHETHER I & D IS NEEDED. PT. IS TRANSFERRING SBA-RISSA AND AMBULATING SHORT DISTANCES IN HIS ROOM W/ BILATERAL STCS WHICH IS HIS PLOF. NO FURTHER SKILLED INTERVENTION WARRANTED. Initialized on 02/07/24 14:11 - END OF NOTE 02/07/24 10:29 Case Management Note by Jud Kurtz S/W PATIENT- HE CONTINUES TO PLAN TO TRANSITION TO [facility] FOR WOUND CARE WHEN AUTH IS RECEIVED Initialized on 02/07/24 10:29 - END OF NOTE <CYNTHIA LATIF - Last Filed: 02/07/24 15:42> Vital Signs: Vital Signs - 24 hr Temp Pulse Resp BP Pulse Ox 02/07/24 19:04 97.9 F 60 16 121/65 95 02/07/24 16:00 98.2 F 59 L 17 120/56 99 02/07/24 11:25 97.1 F 61 17 138/91 98 02/07/24 07:22 97.8 F 62 17 132/60 98 02/07/24 04:00 98.0 F 66 18 121/58 96 02/06/24 23:57 98.5 F 62 18 118/56 99 Pain Assessment - Last Documented Pain Intensity 0 Pain Scale Used 0-10 Pain Scale Intake and Output: Intake & Output 02/05/24 02/06/24 02/07/24 02/08/24 11:59 11:59 11:59 11:59 Intake Total 4210 2210 1780 460 Balance 4210 2210 1780 460 Weight 115.5 kg 122 kg Lab Results: Lab Results-Last 24 Hours 02/07/24 02/07/24 02/07/24 Range/Units 04:15 04:15 07:02 WBC 9.3 (4.0-10.5) x10^3/uL RBC 4.78 (4.1-5.6) x10^6/uL Hgb 10.6 L (12.5-18.0) g/dL Hct 35.9 L (42-50) % MCV 75.1 L (78-100) fL MCH 22.2 L (26-32) pg MCHC 29.5 L (32-36) g/dL RDW 15.6 H (11.5-14.0) % Plt Count 383 (150-450) x10^3/uL MPV 9.9 (7.5-11.0) fL Gran % 73.8 H (36.0-66.0) % Immature Gran % (Auto) 0.2 (0.00-0.4) % Nucleat RBC Rel Count 0.0 (0.00-0.1) % Eos # (Auto) 0.43 (0-0.5) x10^3/uL Immature Gran # (Auto) 0.02 (0.00-0.03) x10^3u/L Absolute Lymphs (auto) 1.28 (1.0-4.6) x10^3/uL Absolute Monos (auto) 0.67 (0.0-1.3) x10^3/uL Absolute Nucleated RBC 0.00 (0.00-0.01) x10^3u/L Lymphocytes % 13.8 L (24.0-44.0) % Monocytes % 7.2 (0.0-12.0) % Eosinophils % 4.6 (0.00-5.0) % Basophils % 0.4 (0.0-0.4) % Absolute Granulocytes 6.84 (1.4-6.9) x10^3/uL Basophils # 0.04 (0-0.4) x10^3/uL Sodium 140 (135-145) mmol/L Potassium 4.0 (3.5-5.1) mmol/L Chloride 99 (98-107) mmol/L Carbon Dioxide 36 H (22-30) mmol/L Anion Gap 9.1 (5-15) MEQ/L BUN 23 H (9-20) mg/dL Creatinine 0.96 (0.66-1.25) mg/dL Estimated GFR 91.1 ML/MIN Glucose 165 H (74-106) mg/dL POC Glucometer 159 H (74 to 106) mg/dL Calcium 8.9 (8.4-10.2) mg/dL Total Bilirubin 0.30 (0.2-1.3) mg/dL AST 15 L (17-59) U/L ALT 10 (0-50) U/L Alkaline Phosphatase 88 (38-126) U/L Serum Total Protein 7.5 (6.3-8.2) g/dL Albumin 3.7 (3.5-5.0) g/dL 02/07/24 02/07/24 02/07/24 Range/Units 07:02 11:06 16:21 WBC (4.0-10.5) x10^3/uL RBC (4.1-5.6) x10^6/uL Hgb (12.5-18.0) g/dL Hct (42-50) % MCV (78-100) fL MCH (26-32) pg MCHC (32-36) g/dL RDW (11.5-14.0) % Plt Count (150-450) x10^3/uL MPV (7.5-11.0) fL Gran % (36.0-66.0) % Immature Gran % (Auto) (0.00-0.4) % Nucleat RBC Rel Count (0.00-0.1) % Eos # (Auto) (0-0.5) x10^3/uL Immature Gran # (Auto) (0.00-0.03) x10^3u/L Absolute Lymphs (auto) (1.0-4.6) x10^3/uL Absolute Monos (auto) (0.0-1.3) x10^3/uL Absolute Nucleated RBC (0.00-0.01) x10^3u/L Lymphocytes % (24.0-44.0) % Monocytes % (0.0-12.0) % Eosinophils % (0.00-5.0) % Basophils % (0.0-0.4) % Absolute Granulocytes (1.4-6.9) x10^3/uL Basophils # (0-0.4) x10^3/uL Sodium (135-145) mmol/L Potassium (3.5-5.1) mmol/L Chloride (98-107) mmol/L Carbon Dioxide (22-30) mmol/L Anion Gap (5-15) MEQ/L BUN (9-20) mg/dL Creatinine (0.66-1.25) mg/dL Estimated GFR ML/MIN Glucose (74-106) mg/dL POC Glucometer 159 H 173 H 121 H (74 to 106) mg/dL Calcium (8.4-10.2) mg/dL Total Bilirubin (0.2-1.3) mg/dL AST (17-59) U/L ALT (0-50) U/L Alkaline Phosphatase (38-126) U/L Serum Total Protein (6.3-8.2) g/dL Albumin (3.5-5.0) g/dL 02/07/24 Range/Units 21:07 WBC (4.0-10.5) x10^3/uL RBC (4.1-5.6) x10^6/uL Hgb (12.5-18.0) g/dL Hct (42-50) % MCV (78-100) fL MCH (26-32) pg MCHC (32-36) g/dL RDW (11.5-14.0) % Plt Count (150-450) x10^3/uL MPV (7.5-11.0) fL Gran % (36.0-66.0) % Immature Gran % (Auto) (0.00-0.4) % Nucleat RBC Rel Count (0.00-0.1) % Eos # (Auto) (0-0.5) x10^3/uL Immature Gran # (Auto) (0.00-0.03) x10^3u/L Absolute Lymphs (auto) (1.0-4.6) x10^3/uL Absolute Monos (auto) (0.0-1.3) x10^3/uL Absolute Nucleated RBC (0.00-0.01) x10^3u/L Lymphocytes % (24.0-44.0) % Monocytes % (0.0-12.0) % Eosinophils % (0.00-5.0) % Basophils % (0.0-0.4) % Absolute Granulocytes (1.4-6.9) x10^3/uL Basophils # (0-0.4) x10^3/uL Sodium (135-145) mmol/L Potassium (3.5-5.1) mmol/L Chloride (98-107) mmol/L Carbon Dioxide (22-30) mmol/L Anion Gap (5-15) MEQ/L BUN (9-20) mg/dL Creatinine (0.66-1.25) mg/dL Estimated GFR ML/MIN Glucose (74-106) mg/dL POC Glucometer 129 H (74 to 106) mg/dL Calcium (8.4-10.2) mg/dL Total Bilirubin (0.2-1.3) mg/dL AST (17-59) U/L ALT (0-50) U/L Alkaline Phosphatase (38-126) U/L Serum Total Protein (6.3-8.2) g/dL Albumin (3.5-5.0) g/dL Multi-Disciplinary Progress Notes: Multi-Disciplinary Progress Notes 02/07/24 14:11 Physical Therapy Note by Spencer(L#[id number])Ara ASSESSED SKIN AGAIN TODAY. PODIATRY STAFF HAD CHANGED UNNA BOOTS EARLIER THIS A.M. R POSTERIOR THIGH ABSCESS - NOTE W/ SLIGHTLY LESS ERYTHEMA; VERY TENDER TO TOUCH W/ PURPLISH RED NUCLEUS. CX + FOR PSEUDOMONAS. DISCUSSED W/ CYNTHIA BHAVYA. CIRCULAR KNIFE CUTTER MACHINE, THAT PT. WOULD BENEFIT FROM SX CONSULT TO R/O WHETHER I & D IS NEEDED. PT. IS TRANSFERRING SBA-RISSA AND AMBULATING SHORT DISTANCES IN HIS ROOM W/ BILATERAL STCS WHICH IS HIS PLOF. NO FURTHER SKILLED INTERVENTION WARRANTED. Initialized on 02/07/24 14:11 - END OF NOTE 02/07/24 10:29 Case Management Note by Jud Kurtz S/W PATIENT- HE CONTINUES TO PLAN TO TRANSITION TO [facility] FOR WOUND CARE WHEN AUTH IS RECEIVED Initialized on 02/07/24 10:29 - END OF NOTE <MANDO BLUE - Last Filed: 02/07/24 21:57> Assessment/Plan (1) Cellulitis Current Visit: Yes Status: Acute Assessment & Plan: -Vanc/Aztreonam started, will continue, follow cultures -Podiatry following, will continue dressing changes -keep legs elevated -Cultures pending 02/04: -Culture with gram - ID, vanc discontinued, follow cultures -edema improving -xray left foot 02/05: -Cultures with pseudomonas aeruginosa and Staphylococcus Aureus with sensitivity to levofloxacin - will change to levofloxacin Code(s): L03.90 - CELLULITIS, UNSPECIFIED (2) Chronic diarrhea Current Visit: Yes Status: Acute Assessment & Plan: -Continue probiotics/dc flagyl -this is chronic -stool studies pending -Consider Cdiff as pt has been on mult antibiotics 02/04: -improved, only 1 BM since admission Code(s): K52.9 - NONINFECTIVE GASTROENTERITIS AND COLITIS, UNSPECIFIED (3) Multiple wounds of skin Current Visit: No Status: Acute Assessment & Plan: -upper left thigh, Left upper back, BLLE -Bacitracin ointment BID to affected areas -Pics documented in chart -BLE ext wrapped per podiatry -Wound therapy consult, appreciate recs 02/06/24: -Wound therapy recs for CLEAN W/ HIBICLENS AND APPLY BORDERED GAUZE AND CHANGE DAILY. PT. SHOULD CLEANSE W/ HIBICLENS. ZINC OXIDE AND BARRIER CREAM SHOULD BE APPLED TO FOLDS AND CEDRIC AREA. -May need wound therapy s/p d/c 02/06: -Surgery consult for wound to right posterior thigh, patient states this is a "ruptured varicose vein", appreciate recs Code(s): T14.8XXA - OTHER INJURY OF UNSPECIFIED BODY REGION, INITIAL ENCOUNTER (4) Atrial fibrillation with RVR Current Visit: No Status: Chronic Assessment & Plan: -H/O on Xarelto -Tele Code(s): I48.91 - UNSPECIFIED ATRIAL FIBRILLATION (5) HTN (hypertension) Current Visit: No Status: Chronic Assessment & Plan: -Stable, continue home meds, adjust as appropriate Code(s): I10 - ESSENTIAL (PRIMARY) HYPERTENSION (6) Hyperlipidemia Current Visit: No Status: Chronic Assessment & Plan: - + hx- not on any meds - Lipid panel pending -Consider statin pending results Code(s): E78.5 - HYPERLIPIDEMIA, UNSPECIFIED (7) Ulcer of extremity due to chronic venous insufficiency Current Visit: No Status: Chronic Assessment & Plan: -Podiatry following, wound pictures in chart -IV abx with vanc/azotrenam started, will follow cultures -Consider ID on discharge 02/04: -vanc d/c - continue azotrenam 02/05: Cultures with pseudomonas and staph, will change abx to levofloxacin 02/06: -Continue levaquin, switch to oral on d/c - pending placement Code(s): L98.499 - NON-PRESSURE CHRONIC ULCER OF SKIN OF SITES W UNSP SEVERITY; I87.2 - VENOUS INSUFFICIENCY (CHRONIC) (PERIPHERAL) (8) Uncontrolled diabetes mellitus Current Visit: No Status: Chronic Qualifiers: Diabetes mellitus type: type 2 Glycemic state: with hyperglycemia Qualified Code(s): E11.65 - Type 2 diabetes mellitus with hyperglycemia Assessment & Plan: - Continue Humaong 10 untis TID w/meals - pt bs dropping - Continue Lantus 54 units daily - low dose humalog s/s - accuchecks ac/hs -a1c 7.64, much better controlled since last visit VTE: Razia Next of KIN: Amor Loaiza [phone] D/C plan: 2-3 days Code status: SCO/DNR Code(s): L03.90 - CELLULITIS, UNSPECIFIED (2) Chronic diarrhea Current Visit: Yes Status: Acute Code(s): K52.9 - NONINFECTIVE GASTROENTERITIS AND COLITIS, UNSPECIFIED (3) Multiple wounds of skin Current Visit: No Status: Acute Code(s): T14.8XXA - OTHER INJURY OF UNSPECIFIED BODY REGION, INITIAL ENCOUNTER (4) Atrial fibrillation with RVR Current Visit: No Status: Chronic Code(s): I48.91 - UNSPECIFIED ATRIAL FIBRILLATION (5) HTN (hypertension) Current Visit: No Status: Chronic Code(s): I10 - ESSENTIAL (PRIMARY) HYPERTENSION (6) Hyperlipidemia Current Visit: No Status: Chronic Code(s): E78.5 - HYPERLIPIDEMIA, UNSPECIFIED (7) Ulcer of extremity due to chronic venous insufficiency Current Visit: No Status: Chronic Code(s): L98.499 - NON-PRESSURE CHRONIC ULCER OF SKIN OF SITES W UNSP SEVERITY; I87.2 - VENOUS INSUFFICIENCY (CHRONIC) (PERIPHERAL) (8) Uncontrolled diabetes mellitus Current Visit: No Status: Chronic Qualifiers: Diabetes mellitus type: type 2 Glycemic state: with hyperglycemia Qualified Code(s): E11.65 - Type 2 diabetes mellitus with hyperglycemia Code(s): [id number] - <CYNTHIA LATIF - Last Filed: 02/07/24 15:42> ELIZABETH Encounter - ELIZABETH Encounter Attestation ELIZABETH Encounter Attestation: "SURESH Smith andhavediscussed pertinent aspects of their care with Cynthia Valdez agree with the history, physical exam (any modifications based on my personal exam will be noted below), assessment, and plan as outlined in original note. Please see immediately below for my summary of findings and additional assessment and plan along with any meaningful corrections/explanations to the Subjective/Objective portions of the ELIZABETH note will be noted." My portion of the encounter took place via telemedicine. -Lower extremity cellulitis and wounds improving. Patient will need mcc placement at discharge. <MANDO BLUE - Last Filed: 02/07/24 21:57>
[2024-02-07] MEDS: DEMADEX 20 MG PO SCH (22:20)
[2024-02-08 05:05] LABS: BASOPHIL % 0.4 % (0.0-0.4); Basophil (Absolute #) 0.04 x10^3/uL (0-0.4); Eosinophil % 4.6 % (0.00-5.0); Eosinophil (Absolute #) 0.43 x10^3/uL (0-0.5); Hematocrit 34.2 % (42-50); Hemoglobin 10.2 g/dL (12.5-18.0); IMMATURE GRAN # 0.03 x10^3u/L (0.00-0.03); IMMATURE GRAN % 0.3 % (0.00-0.4); Lymphocyte (Absolute #) 1.38 x10^3/uL (1.0-4.6); Lymphocytes % 14.8 % (24.0-44.0); Mean Cell Volume 74.3 fL (78-100); Mean Corpuscular Hemoglobin 22.2 pg (26-32); Mean Corpuscular Hgb Concent. 29.8 g/dL (32-36); Mean Platelet Volume 9.7 fL (7.5-11.0); Monocyte (Absolute #) 0.66 x10^3/uL (0.0-1.3); Monocytes % 7.1 % (0.0-12.0); Neutrophil % 72.8 % (36.0-66.0); Platelet Count 367 x10^3/uL (150-450); Red Cell Distribution Width 15.9 % (11.5-14.0); White Blood Count 9.3 x10^3/uL (4.0-10.5)
[2024-02-08 05:32] LABS: ALBUMIN 3.7 g/dL (3.5-5.0); ANION GAP 8.5 MEQ/L (5-15); BILIRUBIN,TOTAL 0.3 mg/dL (0.2-1.3); Calcium 9.2 mg/dL (8.4-10.2); Creatinine 1 0.88 mg/dL (0.66-1.25); EST GLOMERULAR FILTRATION RATE 99.1 ML/MIN; Potassium 4.2 mmol/L (3.5-5.1); Total Protein 7.4 g/dL (6.3-8.2)
--- NOTE | 2024-02-08 10:48 | PCM.NOTE ---
Date and Time: 02/08/24 1041 Subjective Assessment: 58 year old male, referred by podiatry for direct admit 02/03/24 for cellulitis after patient presented to their office with BLE edema, erythema, and significant amounts of green drainage. I have reviewed documentation noting circumferential desquamation of the left leg and worsening venous insufficiency with debridement performed in office to the LLE, right anterior lateral leg wound, and right posterior leg wound. Podiatry will be following patient during his hospitalization. XRay of left foot with significant tissue swelling. BLE currently wrapped. Cultures have been obtained of drainage. Patient does have a penicillin allergy. Initial coverage with vancomycin as well as aztreonam and lasix. Culture with psuedomonas/stap aureus, vanc/aztreonam discontinued. Changed to levaquin. Surgery consulted for wound on right posterior thigh -no surgical intervention needed. Consider ID on discharge as well as continued wound therapy. 02/08/24: Met with patient bedside. No overnight events. Patient with bilateral compression dressings with noted improvement to edema. Patient states he does still have mild pain to LLE with movement and ambulation but this has improved. Endorses pain and "nodule" to right hand this morning. Sensation/ROM intact. Labs and vitals stable. Plan is for discharge to [facility] pending approval. Denies fever,cough, sob, cp, abdominal pain, MCGUIRE, dizziness, N/V/D. - Review of Systems Constitutional: No Symptoms Eyes: No Symptoms Ears, Nose, & Throat: No Symptoms Respiratory: No Symptoms Cardiac: No Symptoms Abdominal/Gastrointestinal: No Symptoms Genitourinary Symptoms: No Symptoms Musculoskeletal: No Symptoms Skin: Cellulitis, Skin Lesions Neurological: No Symptoms Psychological: No Symptoms Endocrine: No Symptoms Hematologic/Lymphatic: No Symptoms Immunological/Allergic: No Symptoms Objective Exam General Appearance: no apparent distress Neurologic Exam: alert, oriented x 3, cooperative Skin Exam: other (Multiple skin lesions, see wound assessment) Wound Assessment: Skin/Wound Assessment Wound/Incision Assessment Start: 02/03/24 17:12 Text: Status: Active Freq: Q6H Protocol: Document 02/08/24 10:00 RB (Rec: 02/08/24 10:17 RB [id number]) Wound/Incision Assessment Medial Buttock Wound Assessment Shift Assessment Wound Type reddened area Comment Pt also has small open area on scrotum, open to air. Barrier cream given to pt to apply prn. pt unwilling to allow nurse to assess at this time Left Upper Posterior Shoulder Wound Assessment Shift Assessment Wound Type healing wounds Wound Stage Non Pressure Wound Drainage Amount None Drainage Odor None/Absent General Appearance Open to air Comment scabbed areas. Remains true. Left Upper Lateral Arm Wound Assessment Shift Assessment Wound Type healing wounds Wound Stage Non Pressure Wound General Appearance Open to air Comment scabbed areas. Remains true. Left Upper Jaw Wound Assessment Shift Assessment Wound Type healing wound Wound Stage Non Pressure Wound General Appearance Open to air Topical Solution/Irrigant Saline Irrigant Comment wound in rust. no bleeding or drainage noted Anterior Chest Wound Assessment Shift Assessment Wound Type reddened areas Wound Stage Non Pressure Wound Drainage Amount None General Appearance Open to air,Reddened Comment reddened areas in bilateral chest folds. Pt requests to clean and apply barrier ointment, zinc, and Nystatin per self.- remains true Right Posterior Thigh Wound Assessment Shift Assessment Wound Type pt reports ruptured varicose vein Wound Stage Non Pressure Wound Dressing Status Changed Secondary Dressing bordered gauze Comment Dressing C/D/I- remains true Wound Photo Photo Taken No Ears, Nose, Throat Exam: moist mucous membranes Neck Exam: normal inspection, full range of motion Respiratory Exam: normal breath sounds, lungs clear Cardiovascular Exam: regular rate/rhythm, normal heart sounds Gastrointestinal/Abdomen Exam: soft, normal bowel sounds Extremity Exam: inflammation, pedal edema, swelling Back Exam: normal inspection Male Genitalia Exam: deferred Rectal Exam: deferred Objective Data Vital Signs: Vital Signs - 24 hr Temp Pulse Resp BP Pulse Ox 02/08/24 07:13 97.8 F 63 16 131/58 95 02/08/24 04:00 97.6 F 16 94 L 02/07/24 22:40 97.8 F 64 17 129/62 98 02/07/24 19:04 97.9 F 60 16 121/65 95 02/07/24 16:00 98.2 F 59 L 17 120/56 99 02/07/24 11:25 97.1 F 61 17 138/91 98 Pain Assessment - Last Documented Pain Intensity 0 Pain Scale Used 0-10 Pain Scale Intake and Output: Intake & Output 02/05/24 02/06/24 02/07/24 02/08/24 11:59 11:59 11:59 11:59 Intake Total 4210 2210 1780 1040 Balance 4209 2209 1780 1040 Weight 115.5 kg 253.6 kg Lab Results: Lab Results-Last 24 Hours 02/07/24 02/07/24 02/07/24 Range/Units 11:06 16:21 21:07 WBC (4.0-10.5) x10^3/uL RBC (4.1-5.6) x10^6/uL Hgb (12.5-18.0) g/dL Hct (42-50) % MCV (78-100) fL MCH (26-32) pg MCHC (32-36) g/dL RDW (11.5-14.0) % Plt Count (150-450) x10^3/uL MPV (7.5-11.0) fL Gran % (36.0-66.0) % Immature Gran % (Auto) (0.00-0.4) % Nucleat RBC Rel Count (0.00-0.1) % Eos # (Auto) (0-0.5) x10^3/uL Immature Gran # (Auto) (0.00-0.03) x10^3u/L Absolute Lymphs (auto) (1.0-4.6) x10^3/uL Absolute Monos (auto) (0.0-1.3) x10^3/uL Absolute Nucleated RBC (0.00-0.01) x10^3u/L Lymphocytes % (24.0-44.0) % Monocytes % (0.0-12.0) % Eosinophils % (0.00-5.0) % Basophils % (0.0-0.4) % Absolute Granulocytes (1.4-6.9) x10^3/uL Basophils # (0-0.4) x10^3/uL Sodium (135-145) mmol/L Potassium (3.5-5.1) mmol/L Chloride (98-107) mmol/L Carbon Dioxide (22-30) mmol/L Anion Gap (5-15) MEQ/L BUN (9-20) mg/dL Creatinine (0.66-1.25) mg/dL Estimated GFR ML/MIN Glucose (74-106) mg/dL POC Glucometer 173 H 121 H 129 H (74 to 106) mg/dL Calcium (8.4-10.2) mg/dL Total Bilirubin (0.2-1.3) mg/dL AST (17-59) U/L ALT (0-50) U/L Alkaline Phosphatase (38-126) U/L Serum Total Protein (6.3-8.2) g/dL Albumin (3.5-5.0) g/dL 02/08/24 02/08/24 02/08/24 Range/Units 04:55 04:55 07:31 WBC 9.3 (4.0-10.5) x10^3/uL RBC 4.60 (4.1-5.6) x10^6/uL Hgb 10.2 L (12.5-18.0) g/dL Hct 34.2 L (42-50) % MCV 74.3 L (78-100) fL MCH 22.2 L (26-32) pg MCHC 29.8 L (32-36) g/dL RDW 15.9 H (11.5-14.0) % Plt Count 367 (150-450) x10^3/uL MPV 9.7 (7.5-11.0) fL Gran % 72.8 H (36.0-66.0) % Immature Gran % (Auto) 0.3 (0.00-0.4) % Nucleat RBC Rel Count 0.0 (0.00-0.1) % Eos # (Auto) 0.43 (0-0.5) x10^3/uL Immature Gran # (Auto) 0.03 (0.00-0.03) x10^3u/L Absolute Lymphs (auto) 1.38 (1.0-4.6) x10^3/uL Absolute Monos (auto) 0.66 (0.0-1.3) x10^3/uL Absolute Nucleated RBC 0.00 (0.00-0.01) x10^3u/L Lymphocytes % 14.8 L (24.0-44.0) % Monocytes % 7.1 (0.0-12.0) % Eosinophils % 4.6 (0.00-5.0) % Basophils % 0.4 (0.0-0.4) % Absolute Granulocytes 6.80 (1.4-6.9) x10^3/uL Basophils # 0.04 (0-0.4) x10^3/uL Sodium 142 (135-145) mmol/L Potassium 4.2 (3.5-5.1) mmol/L Chloride 103 (98-107) mmol/L Carbon Dioxide 34 H (22-30) mmol/L Anion Gap 8.5 (5-15) MEQ/L BUN 27 H (9-20) mg/dL Creatinine 0.88 (0.66-1.25) mg/dL Estimated GFR 99.1 ML/MIN Glucose 154 H (74-106) mg/dL POC Glucometer 156 H (74 to 106) mg/dL Calcium 9.2 (8.4-10.2) mg/dL Total Bilirubin 0.30 (0.2-1.3) mg/dL AST 16 L (17-59) U/L ALT 11 (0-50) U/L Alkaline Phosphatase 85 (38-126) U/L Serum Total Protein 7.4 (6.3-8.2) g/dL Albumin 3.7 (3.5-5.0) g/dL Radiology Exams: Radiology Procedures Category Date Time Status HAND (2 VIEW) Routine Exams 02/08/24 08:03 Taken Multi-Disciplinary Progress Notes: Multi-Disciplinary Progress Notes 02/08/24 08:20 Case Management Note by Jud Kurtz S/W [facility] AT [facility]- PRE[facility]ERT STILL PENDING AT THIS TIME Initialized on 02/08/24 08:20 - END OF NOTE 02/07/24 14:11 Physical Therapy Note by Spencer(L#[id number])Ara ASSESSED SKIN AGAIN TODAY. PODIATRY STAFF HAD CHANGED UNNA BOOTS EARLIER THIS A.M. R POSTERIOR THIGH ABSCESS - NOTE W/ SLIGHTLY LESS ERYTHEMA; VERY TENDER TO TOUCH W/ PURPLISH RED NUCLEUS. CX + FOR PSEUDOMONAS. DISCUSSED W/ CYNTHIA BHAVYA. POST ACUTE CARE REGISTERED NURSE, THAT PT. WOULD BENEFIT FROM SX CONSULT TO R/O WHETHER I & D IS NEEDED. PT. IS TRANSFERRING SBA-RISSA AND AMBULATING SHORT DISTANCES IN HIS ROOM W/ BILATERAL STCS WHICH IS HIS PLOF. NO FURTHER SKILLED INTERVENTION WARRANTED. Initialized on 02/07/24 14:11 - END OF NOTE Assessment/Plan (1) Cellulitis Current Visit: Yes Status: Acute Assessment & Plan: -Vanc/Aztreonam started, will continue, follow cultures -Podiatry following, will continue dressing changes -keep legs elevated -Cultures pending 02/04: -Culture with gram - ID, vanc discontinued, follow cultures -edema improving -xray left foot 02/05: -Cultures with pseudomonas aeruginosa and Staphylococcus Aureus with sensitivity to levofloxacin - will change to levofloxacin 02/06: -Continue levaquin for a total of 10 days, will discontinue after 02/15/24 Code(s): L03.90 - CELLULITIS, UNSPECIFIED (2) Chronic diarrhea Current Visit: Yes Status: Acute Assessment & Plan: -Continue probiotics/dc flagyl -this is chronic -stool studies pending -Consider Cdiff as pt has been on mult antibiotics 02/04: -improved, only 1 BM since admission Code(s): K52.9 - NONINFECTIVE GASTROENTERITIS AND COLITIS, UNSPECIFIED (3) Multiple wounds of skin Current Visit: No Status: Acute Assessment & Plan: -upper left thigh, Left upper back, BLLE -Bacitracin ointment BID to affected areas -Pics documented in chart -BLE ext wrapped per podiatry -Wound therapy consult, appreciate recs 02/06/24: -Wound therapy recs for CLEAN W/ HIBICLENS AND APPLY BORDERED GAUZE AND CHANGE DAILY. PT. SHOULD CLEANSE W/ HIBICLENS. ZINC OXIDE AND BARRIER CREAM SHOULD BE APPLED TO FOLDS AND CEDRIC AREA. -May need wound therapy s/p d/c 02/06: -Surgery consult for wound to right posterior thigh, patient states this is a "r uptured varicose vein", appreciate recs 02/07: -Continue wound therapy, no need for surgical intervention to right posterior thigh wound Code(s): T14.8XXA - OTHER INJURY OF UNSPECIFIED BODY REGION, INITIAL ENCOUNTER (4) Atrial fibrillation with RVR Current Visit: No Status: Chronic Assessment & Plan: -H/O on Xarelto -Tele Code(s): I48.91 - UNSPECIFIED ATRIAL FIBRILLATION (5) HTN (hypertension) Current Visit: No Status: Chronic Assessment & Plan: -Stable, continue home meds, adjust as appropriate Code(s): I10 - ESSENTIAL (PRIMARY) HYPERTENSION (6) Hyperlipidemia Current Visit: No Status: Chronic Assessment & Plan: - + hx- not on any meds - Lipid panel pending -Consider statin pending results Code(s): E78.5 - HYPERLIPIDEMIA, UNSPECIFIED (7) Ulcer of extremity due to chronic venous insufficiency Current Visit: No Status: Chronic Assessment & Plan: -Podiatry following, wound pictures in chart -IV abx with vanc/azotrenam started, will follow cultures -Consider ID on discharge 02/04: -vanc d/c - continue azotrenam 02/05: Cultures with pseudomonas and staph, will change abx to levofloxacin 02/06: -Continue levaquin, switch to oral on d/c - pending placement 02/07: -Continue levquin for 10 day course 02/06/24-02/15/24 Code(s): L98.499 - NON-PRESSURE CHRONIC ULCER OF SKIN OF SITES W UNSP SEVERITY; I87.2 - VENOUS INSUFFICIENCY (CHRONIC) (PERIPHERAL) (8) Uncontrolled diabetes mellitus Current Visit: No Status: Chronic Qualifiers: Diabetes mellitus type: type 2 Glycemic state: with hyperglycemia Qualified Code(s): E11.65 - Type 2 diabetes mellitus with hyperglycemia Assessment & Plan: - Continue Humaong 10 untis TID w/meals - pt bs dropping - Continue Lantus 54 units daily - low dose humalog s/s - accuchecks ac/hs -a1c 7.64, much better controlled since last visit # Right Hand Pain -No trauma, sensation/ROM intact, will evaluate with right hand xray VTE: Xarelto Next of KIN: Amor [facility] [phone] D/C plan: 2-3 days Code status: SCO/DNR Code(s): L03.90 - CELLULITIS, UNSPECIFIED (2) Chronic diarrhea Current Visit: Yes Status: Acute Code(s): K52.9 - NONINFECTIVE GASTROENTERITIS AND COLITIS, UNSPECIFIED (3) Multiple wounds of skin Current Visit: No Status: Acute Code(s): T14.8XXA - OTHER INJURY OF UNSPECIFIED BODY REGION, INITIAL ENCOUNTER (4) Atrial fibrillation with RVR Current Visit: No Status: Chronic Code(s): I48.91 - UNSPECIFIED ATRIAL FIBRILLATION (5) HTN (hypertension) Current Visit: No Status: Chronic Code(s): I10 - ESSENTIAL (PRIMARY) HYPERTENSION (6) Hyperlipidemia Current Visit: No Status: Chronic Code(s): E78.5 - HYPERLIPIDEMIA, UNSPECIFIED (7) Ulcer of extremity due to chronic venous insufficiency Current Visit: No Status: Chronic Code(s): L98.499 - NON-PRESSURE CHRONIC ULCER OF SKIN OF SITES W UNSP SEVERITY; I87.2 - VENOUS INSUFFICIENCY (CHRONIC) (PERIPHERAL) (8) Uncontrolled diabetes mellitus Current Visit: No Status: Chronic Qualifiers: Diabetes mellitus type: type 2 Glycemic state: with hyperglycemia Qualified Code(s): E11.65 - Type 2 diabetes mellitus with hyperglycemia Code(s): AEO4072 - (9) Right hand pain Current Visit: Yes Status: Acute Code(s): M79.641 - PAIN IN RIGHT HAND
--- NOTE | 2024-02-08 23:49 | XRAY ---
CLINICAL HISTORY: painful swollen area noted to palm COMPARISON: None. TECHNIQUE: X-ray of right hand showing 2 views: PA and lateral views. FINDINGS: Normal bone density. There is subtle marginal lipping at the DIP joints. No joint deformities are seen. No evidence of acute fracture or dislocation. IMPRESSION: 1. No acute fracture or dislocation 2. Early degenerative changes in the distal interphalangeal joints. DISCLAIMER:A subtle bone abnormality or fracture may not be readily apparent on x-rays, thus clinical correlation and further imaging including follow up CT, MRI, or follow up x-rays are advised as needed. Electronically Signed by: Linh Mckeon MD. (02/08/2024 23:45:15 EDT)
[2024-02-09 04:54] LABS: BASOPHIL % 0.5 % (0.0-0.4); Basophil (Absolute #) 0.04 x10^3/uL (0-0.4); Eosinophil % 5.4 % (0.00-5.0); Eosinophil (Absolute #) 0.47 x10^3/uL (0-0.5); Hematocrit 34.3 % (42-50); Hemoglobin 10.2 g/dL (12.5-18.0); IMMATURE GRAN # 0.02 x10^3u/L (0.00-0.03); IMMATURE GRAN % 0.2 % (0.00-0.4); Lymphocyte (Absolute #) 1.44 x10^3/uL (1.0-4.6); Lymphocytes % 16.7 % (24.0-44.0); Mean Cell Volume 74.6 fL (78-100); Mean Corpuscular Hemoglobin 22.2 pg (26-32); Mean Corpuscular Hgb Concent. 29.7 g/dL (32-36); Mean Platelet Volume 9.5 fL (7.5-11.0); Monocyte (Absolute #) 0.66 x10^3/uL (0.0-1.3); Monocytes % 7.6 % (0.0-12.0); Neutrophil % 69.6 % (36.0-66.0); Platelet Count 329 x10^3/uL (150-450); Red Cell Distribution Width 15.7 % (11.5-14.0); White Blood Count 8.6 x10^3/uL (4.0-10.5)
--- NOTE | 2024-02-09 12:12 | PCM.NOTE ---
Date and Time: 02/09/24 1207 Subjective Assessment: 58 year old male, referred by podiatry for direct admit 02/03/24 for cellulitis after patient presented to their office with BLE edema, erythema, and significant amounts of green drainage. I have reviewed documentation noting circumferential desquamation of the left leg and worsening venous insufficiency with debridement performed in office to the LLE, right anterior lateral leg wound, and right posterior leg wound. Podiatry will be following patient during his hospitalization. XRay of left foot with significant tissue swelling. BLE currently wrapped. Cultures have been obtained of drainage. Patient does have a penicillin allergy. Initial coverage with vancomycin as well as aztreonam and lasix. Culture with psuedomonas/stap aureus, vanc/aztreonam discontinued. Changed to levaquin. Surgery consulted for wound on right posterior thigh -no surgical intervention needed. Consider ID on discharge as well as continued wound therapy. 02/08/24: Met with patient bedside. No overnight events. Patient with bilateral compression dressings with noted improvement to edema. Patient states he does still have mild pain to LLE with movement and ambulation but this has improved. Endorses pain and "nodule" to right hand this morning. Sensation/ROM intact. Labs and vitals stable. Plan is for discharge to [facility] pending approval. Denies fever,cough, sob, cp, abdominal pain, MCGUIRE, dizziness, N/V/D. 02/08: No overnight events noted. States hand is feeling better. Discussed right hand xray showing no acute process. No change in BLE edema overnight, pain is still mild to LLE with movement/ambulation. SNF pending. - Review of Systems Constitutional: No Symptoms Eyes: No Symptoms Ears, Nose, & Throat: No Symptoms Respiratory: No Symptoms Cardiac: Edema (ble in compression dressings) Abdominal/Gastrointestinal: No Symptoms Genitourinary Symptoms: No Symptoms Musculoskeletal: No Symptoms Skin: Cellulitis, Skin Lesions Neurological: No Symptoms Psychological: No Symptoms Endocrine: No Symptoms Hematologic/Lymphatic: No Symptoms Immunological/Allergic: No Symptoms Objective Exam General Appearance: no apparent distress Neurologic Exam: alert, oriented x 3, cooperative, nml station & gait Skin Exam: other (Multiple skin lesions, see wound assessment) Wound Assessment: Skin/Wound Assessment Wound/Incision Assessment Start: 02/03/24 17:12 Text: Status: Active Freq: Q6H Protocol: Document 05/15/24 10:00 RB (Rec: 02/09/24 10:13 RB [id number]) Wound/Incision Assessment Medial Buttock Wound Assessment Shift Assessment Wound Type reddened area Comment Pt also has small open area on scrotum, open to air. Barrier cream given to pt to apply prn. PT DENIES NEEDING ANY ASSISTANCE Left Upper Posterior Shoulder Wound Assessment Shift Assessment Wound Type healing wounds Wound Stage Non Pressure Wound Drainage Amount None Drainage Odor None/Absent General Appearance Open to air Comment several scabbed areas. NO CHANGES AT THIS TIME, PT DENIES ANY NEEDS REGARDING ANY AREAS, NO BLEEDING OR DRAINAGE NOTED Left Upper Lateral Arm Wound Assessment Shift Assessment Wound Type healing wounds Wound Stage Non Pressure Wound General Appearance Open to air Comment several scabbed areas. NO BLEEDING OR DRAINAGE NOTED AT THIS TIME Left Upper Jaw Wound Assessment Shift Assessment Wound Type healing wound Wound Stage Non Pressure Wound General Appearance Open to air Topical Solution/Irrigant Saline Irrigant Comment wound in rust. no bleeding or drainage noted- remains true Anterior Chest Wound Assessment Shift Assessment Wound Type reddened areas Wound Stage Non Pressure Wound Drainage Amount None General Appearance Open to air,Reddened Comment reddened areas in bilateral chest folds. Pt requests to clean and apply barrier ointment, zinc, and Nystatin PER SELF WHEN CLEANING UP, DENIES ANY NEW NEEDS Right Posterior Thigh Wound Assessment Shift Assessment Wound Type pt reports ruptured varicose vein Wound Stage Non Pressure Wound Dressing Status Changed Secondary Dressing bordered gauze Comment NEW DRESSING APPLIED, CDI AT THIS TIME Wound Photo Photo Taken No Eye Exam: PERRL Ears, Nose, Throat Exam: normal ENT inspection Neck Exam: normal inspection Respiratory Exam: normal breath sounds, lungs clear Cardiovascular Exam: regular rate/rhythm, normal heart sounds Gastrointestinal/Abdomen Exam: soft, normal bowel sounds Extremity Exam: pedal edema, swelling Back Exam: normal inspection Male Genitalia Exam: deferred Rectal Exam: deferred Objective Data Vital Signs: Vital Signs - 24 hr Temp Pulse Resp BP Pulse Ox 02/09/24 07:32 97.7 F 62 16 136/65 97 02/09/24 04:00 97.9 F 67 16 133/61 97 02/08/24 23:53 98.3 F 75 18 116/57 98 02/08/24 20:00 97.8 F 75 18 141/65 99 02/08/24 16:00 97.7 F 62 16 114/55 93 L Pain Assessment - Last Documented Pain Intensity 0 Pain Scale Used 0-10 Pain Scale Intake and Output: Intake & Output 02/07/24 02/08/24 02/09/24 02/10/24 11:59 11:59 11:59 11:59 Intake Total 1780 1040 2420 Balance 1780 1040 2420 Weight 115.5 kg 253.6 kg Lab Results: Lab Results-Last 24 Hours 02/09/24 02/09/24 Range/Units 04:40 04:40 WBC 8.6 (4.0-10.5) x10^3/uL RBC 4.60 (4.1-5.6) x10^6/uL Hgb 10.2 L (12.5-18.0) g/dL Hct 34.3 L (42-50) % MCV 74.6 L (78-100) fL MCH 22.2 L (26-32) pg MCHC 29.7 L (32-36) g/dL RDW 15.7 H (11.5-14.0) % Plt Count 329 (150-450) x10^3/uL MPV 9.5 (7.5-11.0) fL Gran % 69.6 H (36.0-66.0) % Immature Gran % (Auto) 0.2 (0.00-0.4) % Nucleat RBC Rel Count 0.0 (0.00-0.1) % Eos # (Auto) 0.47 (0-0.5) x10^3/uL Immature Gran # (Auto) 0.02 (0.00-0.03) x10^3u/L Absolute Lymphs (auto) 1.44 (1.0-4.6) x10^3/uL Absolute Monos (auto) 0.66 (0.0-1.3) x10^3/uL Absolute Nucleated RBC 0.00 (0.00-0.01) x10^3u/L Lymphocytes % 16.7 L (24.0-44.0) % Monocytes % 7.6 (0.0-12.0) % Eosinophils % 5.4 H (0.00-5.0) % Basophils % 0.5 (0.0-0.4) % Absolute Granulocytes 6.00 (1.4-6.9) x10^3/uL Basophils # 0.04 (0-0.4) x10^3/uL Anion Gap (5-15) MEQ/L Radiology Exams: Radiology Procedures Category Date Time Status HAND (2 VIEW) Routine Exams 02/08/24 08:03 Completed Multi-Disciplinary Progress Notes: Multi-Disciplinary Progress Notes 02/09/24 09:53 Case Management Note by Jud Kurtz S/Tha [facility] AT [facility]- STILL WAITING APPROVAL AT THIS TIME Initialized on 02/09/24 09:53 - END OF NOTE 02/09/24 09:51 Case Management Note by Erika Shepard PATIENT STILL AGREEABLE WITH PLAN TO GO THE [facility]. STILL AWATING ON INSURANCE APPROVAL. Initialized on 02/09/24 09:51 - END OF NOTE 02/08/24 13:56 Case Management Note by Jud Kurtz/Tha BOLAND AT [facility]- [facility] STILL PENDING AT THIS TIME Initialized on 02/08/24 13:56 - END OF NOTE Assessment/Plan (1) Cellulitis Current Visit: Yes Status: Acute Assessment & Plan: -Vanc/Aztreonam started, will continue, follow cultures -Podiatry following, will continue dressing changes -keep legs elevated -Cultures pending 02/04: -Culture with gram - ID, vanc discontinued, follow cultures -edema improving -xray left foot 02/05: -Cultures with pseudomonas aeruginosa and Staphylococcus Aureus with sensitivity to levofloxacin - will change to levofloxacin 02/06: -Continue levaquin for a total of 10 days, will discontinue after 02/15/24 Code(s): L03.90 - CELLULITIS, UNSPECIFIED (2) Chronic diarrhea Current Visit: Yes Status: Acute Assessment & Plan: -Continue probiotics/dc flagyl -this is chronic -stool studies pending -Consider Cdiff as pt has been on mult antibiotics 02/04: -improved, only 1 BM since admission Code(s): K52.9 - NONINFECTIVE GASTROENTERITIS AND COLITIS, UNSPECIFIED (3) Multiple wounds of skin Current Visit: No Status: Acute Assessment & Plan: -upper left thigh, Left upper back, BLLE -Bacitracin ointment BID to affected areas -Pics documented in chart -BLE ext wrapped per podiatry -Wound therapy consult, appreciate recs 02/06/24: -Wound therapy recs for CLEAN W/ HIBICLENS AND APPLY BORDERED GAUZE AND CHANGE DAILY. PT. SHOULD CLEANSE W/ HIBICLENS. ZINC OXIDE AND BARRIER CREAM SHOULD BE APPLED TO FOLDS AND CEDRIC AREA. -May need wound therapy s/p d/c 02/06: -Surgery consult for wound to right posterior thigh, patient states this is a "ruptured varicose vein", appreciate recs 02/07: -Continue wound therapy, no need for surgical intervention to right posterior thigh wound Code(s): T14.8XXA - OTHER INJURY OF UNSPECIFIED BODY REGION, INITIAL ENCOUNTER (4) Atrial fibrillation with RVR Current Visit: No Status: Chronic Assessment & Plan: -H/O on Xarelto -Tele Code(s): I48.91 - UNSPECIFIED ATRIAL FIBRILLATION (5) HTN (hypertension) Current Visit: No Status: Chronic Assessment & Plan: -Stable, continue home meds, adjust as appropriate Code(s): I10 - ESSENTIAL (PRIMARY) HYPERTENSION (6) Hyperlipidemia Current Visit: No Status: Chronic Assessment & Plan: - + hx- not on any meds - Lipid panel pending -Consider statin pending results Code(s): E78.5 - HYPERLIPIDEMIA, UNSPECIFIED (7) Ulcer of extremity due to chronic venous insufficiency Current Visit: No Status: Chronic Assessment & Plan: -Podiatry following, wound pictures in chart -IV abx with vanc/azotrenam started, will follow cultures -Consider ID on discharge 02/04: -vanc d/c - continue azotrenam 02/05: Cultures with pseudomonas and staph, will change abx to levofloxacin 02/06: -Continue levaquin, switch to oral on d/c - pending placement 02/07: -Continue levquin for 10 day course 02/06/24-02/15/24 Code(s): L98.499 - NON-PRESSURE CHRONIC ULCER OF SKIN OF SITES W UNSP SEVERITY; I87.2 - VENOUS INSUFFICIENCY (CHRONIC) (PERIPHERAL) (8) Uncontrolled diabetes mellitus Current Visit: No Status: Chronic Qualifiers: Diabetes mellitus type: type 2 Glycemic state: with hyperglycemia Qualified Code(s): E11.65 - Type 2 diabetes mellitus with hyperglycemia Assessment & Plan: - Continue Humaong 10 untis TID w/meals - pt bs dropping - Continue Lantus 54 units daily - low dose humalog s/s - accuchecks ac/hs -a1c 7.64, much better controlled since last visit # Right Hand Pain -No trauma, sensation/ROM intact, will evaluate with right hand xray 02/08: -Right hand xray with no acute findings VTE: Minito Next of KIN: Amor Loaiza [phone] D/C plan: 2-3 days Code status: SCO/DNR Code(s): L03.90 - CELLULITIS, UNSPECIFIED (2) Chronic diarrhea Current Visit: Yes Status: Acute Code(s): K52.9 - NONINFECTIVE GASTROENTERITIS AND COLITIS, UNSPECIFIED (3) Multiple wounds of skin Current Visit: No Status: Acute Code(s): T14.8XXA - OTHER INJURY OF UNSPECIFIED BODY REGION, INITIAL ENCOUNTER (4) Atrial fibrillation with RVR Current Visit: No Status: Chronic Code(s): I48.91 - UNSPECIFIED ATRIAL FIBRILLATION (5) HTN (hypertension) Current Visit: No Status: Chronic Code(s): I10 - ESSENTIAL (PRIMARY) HYPERTENSION (6) Hyperlipidemia Current Visit: No Status: Chronic Code(s): E78.5 - HYPERLIPIDEMIA, UNS PECIFIED (7) Ulcer of extremity due to chronic venous insufficiency Current Visit: No Status: Chronic Code(s): L98.499 - NON-PRESSURE CHRONIC ULCER OF SKIN OF SITES W UNSP SEVERITY; I87.2 - VENOUS INSUFFICIENCY (CHRONIC) (PERIPHERAL) (8) Uncontrolled diabetes mellitus Current Visit: No Status: Chronic Qualifiers: Diabetes mellitus type: type 2 Glycemic state: with hyperglycemia Qualified Code(s): E11.65 - Type 2 diabetes mellitus with hyperglycemia Code(s): EPF8135 - (9) Right hand pain Current Visit: Yes Status: Acute Code(s): M79.641 - PAIN IN RIGHT HAND
--- NOTE | 2024-02-10 04:27 | PCM.NOTE ---
Date and Time: 02/10/24 0425 Subjective Assessment: Patient at chairside on presentation. Improvement of medical picture. Physical Exam - Narrative Narrative Physical Exam: Podiatry Physical Exam Objective Data Vital Signs: Vital Signs - 24 hr Temp Pulse Resp BP Pulse Ox 02/10/24 03:38 97.9 F 64 18 133/61 97 02/09/24 23:45 98.2 F 63 18 110/56 98 02/09/24 19:47 98.3 F 68 18 122/59 99 02/09/24 16:00 98.1 F 73 16 130/58 93 L 02/09/24 12:00 97.8 F 62 16 124/63 97 02/09/24 07:32 97.7 F 62 16 136/65 97 Pain Assessment - Last Documented Pain Intensity 0 Pain Scale Used 0-10 Pain Scale Intake and Output: Intake & Output 02/07/24 02/08/24 02/09/24 02/10/24 11:59 11:59 11:59 11:59 Intake Total 1780 1040 2420 2320 Balance 1780 1040 2420 2320 Weight 115.5 kg 253.6 kg Lab Results: Lab Results-Last 24 Hours 02/09/24 02/09/24 Range/Units 04:40 04:40 WBC 8.6 (4.0-10.5) x10^3/uL RBC 4.60 (4.1-5.6) x10^6/uL Hgb 10.2 L (12.5-18.0) g/dL Hct 34.3 L (42-50) % MCV 74.6 L (78-100) fL MCH 22.2 L (26-32) pg MCHC 29.7 L (32-36) g/dL RDW 15.7 H (11.5-14.0) % Plt Count 329 (150-450) x10^3/uL MPV 9.5 (7.5-11.0) fL Gran % 69.6 H (36.0-66.0) % Immature Gran % (Auto) 0.2 (0.00-0.4) % Nucleat RBC Rel Count 0.0 (0.00-0.1) % Eos # (Auto) 0.47 (0-0.5) x10^3/uL Immature Gran # (Auto) 0.02 (0.00-0.03) x10^3u/L Absolute Lymphs (auto) 1.44 (1.0-4.6) x10^3/uL Absolute Monos (auto) 0.66 (0.0-1.3) x10^3/uL Absolute Nucleated RBC 0.00 (0.00-0.01) x10^3u/L Lymphocytes % 16.7 L (24.0-44.0) % Monocytes % 7.6 (0.0-12.0) % Eosinophils % 5.4 H (0.00-5.0) % Basophils % 0.5 (0.0-0.4) % Absolute Granulocytes 6.00 (1.4-6.9) x10^3/uL Basophils # 0.04 (0-0.4) x10^3/uL Anion Gap (5-15) MEQ/L Radiology Exams: Radiology Procedures Category Date Time Status HAND (2 VIEW) Routine Exams 02/08/24 08:03 Completed Multi-Disciplinary Progress Notes: Multi-Disciplinary Progress Notes 02/09/24 09:53 Case Management Note by Jud Kurtz S/W KATHRYN AT [facility]- STILL WAITING APPROVAL AT THIS TIME Initialized on 02/09/24 09:53 - END OF NOTE 02/09/24 09:51 Case Management Note by Erika Shepard PATIENT STILL AGREEABLE WITH PLAN TO GO THE [facility]. STILL AWATING ON INSURANCE APPROVAL. Initialized on 02/09/24 09:51 - END OF NOTE Assessment/Plan (1) Uncontrolled diabetes mellitus Current Visit: No Status: Chronic Qualifiers: Diabetes mellitus type: type 2 Glycemic state: with hyperglycemia Qualified Code(s): E11.65 - Type 2 diabetes mellitus with hyperglycemia Assessment & Plan: Patient examination and evaluation. Dakin's wash performed to the bilateral lower extremity, iodine paint with a dressing consisting of Adaptic 4 x 4's Unna boot Curlex and Coban secondary to patient's venous insufficiency ulcers Significant improvement of ulcerations noted at this time. Cultures with pseudomonas aeruginosa and Staphylococcus Aureus with sensitivity to levofloxacin - per medicine recommendations will change to levofloxacin Patient seemingly responding to therapy well with signficant improvement in size of bilateral lower extremity with improvement of wounds. Sx consult for right thigh "ruptured varicose vein" consider placement to SNF Will continue to monitor. Code(s): PDK2782 - (2) Multiple wounds of skin Current Visit: No Status: Acute Code(s): T14.8XXA - OTHER INJURY OF UNSPECIFIED BODY REGION, INITIAL ENCOUNTER (3) Ulcer of extremity due to chronic venous insufficiency Current Visit: No Status: Chronic Code(s): L98.499 - NON-PRESSURE CHRONIC ULCER OF SKIN OF SITES W UNSP SEVERITY; I87.2 - VENOUS INSUFFICIENCY (CHRONIC) (PERIPHERAL) (4) Onychomycosis Current Visit: No Status: Acute Code(s): B35.1 - TINEA UNGUIUM (5) Atrial fibrillation with RVR Current Visit: No Status: Chronic Code(s): I48.91 - UNSPECIFIED ATRIAL FIBRILLATION (6) Major depressive disorder Current Visit: No Status: Chronic Code(s): F32.9 - MAJOR DEPRESSIVE DISORDER, SINGLE EPISODE, UNSPECIFIED (7) Peripheral neuropathy Current Visit: No Status: Chronic Code(s): G62.9 - POLYNEUROPATHY, UNSPECIFIED
--- NOTE | 2024-02-10 04:34 | PCM.NOTE ---
Date and Time: 02/10/24 0433 Subjective Assessment: Doing well Physical Exam - Narrative Narrative Physical Exam: Podiatry Physical Exam Objective Data Vital Signs: Vital Signs - 24 hr Temp Pulse Resp BP Pulse Ox 02/10/24 03:38 97.9 F 64 18 133/61 97 02/09/24 23:45 98.2 F 63 18 110/56 98 02/09/24 19:47 98.3 F 68 18 122/59 99 02/09/24 16:00 98.1 F 73 16 130/58 93 L 02/09/24 12:00 97.8 F 62 16 124/63 97 02/09/24 07:32 97.7 F 62 16 136/65 97 Pain Assessment - Last Documented Pain Intensity 0 Pain Scale Used 0-10 Pain Scale Intake and Output: Intake & Output 02/07/24 02/08/24 02/09/24 02/10/24 11:59 11:59 11:59 11:59 Intake Total 1780 1040 2420 2320 Balance 1780 1040 2420 2320 Weight 115.5 kg 253.6 kg Lab Results: Lab Results-Last 24 Hours 02/09/24 02/09/24 Range/Units 04:40 04:40 WBC 8.6 (4.0-10.5) x10^3/uL RBC 4.60 (4.1-5.6) x10^6/uL Hgb 10.2 L (12.5-18.0) g/dL Hct 34.3 L (42-50) % MCV 74.6 L (78-100) fL MCH 22.2 L (26-32) pg MCHC 29.7 L (32-36) g/dL RDW 15.7 H (11.5-14.0) % Plt Count 329 (150-450) x10^3/uL MPV 9.5 (7.5-11.0) fL Gran % 69.6 H (36.0-66.0) % Immature Gran % (Auto) 0.2 (0.00-0.4) % Nucleat RBC Rel Count 0.0 (0.00-0.1) % Eos # (Auto) 0.47 (0-0.5) x10^3/uL Immature Gran # (Auto) 0.02 (0.00-0.03) x10^3u/L Absolute Lymphs (auto) 1.44 (1.0-4.6) x10^3/uL Absolute Monos (auto) 0.66 (0.0-1.3) x10^3/uL Absolute Nucleated RBC 0.00 (0.00-0.01) x10^3u/L Lymphocytes % 16.7 L (24.0-44.0) % Monocytes % 7.6 (0.0-12.0) % Eosinophils % 5.4 H (0.00-5.0) % Basophils % 0.5 (0.0-0.4) % Absolute Granulocytes 6.00 (1.4-6.9) x10^3/uL Basophils # 0.04 (0-0.4) x10^3/uL Anion Gap (5-15) MEQ/L Radiology Exams: Radiology Procedures Category Date Time Status HAND (2 VIEW) Routine Exams 02/08/24 08:03 Completed Multi-Disciplinary Progress Notes: Multi-Disciplinary Progress Notes 02/09/24 09:53 Case Management Note by Jud Kurtz S/W KATHR[facility] AT [facility]- STILL WAITING APPROVAL AT THIS TIME Initialized on 02/09/24 09:53 - END OF NOTE 02/09/24 09:51 Case Management Note by Erika Shepard PATIENT STILL AGREEABLE WITH PLAN TO GO THE [facility]. STILL AWATING ON INSURANCE APPROVAL. Initialized on 02/09/24 09:51 - END OF NOTE Assessment/Plan (1) Uncontrolled diabetes mellitus Current Visit: No Status: Chronic Qualifiers: Diabetes mellitus type: type 2 Glycemic state: with hyperglycemia Qualified Code(s): E11.65 - Type 2 diabetes mellitus with hyperglycemia Assessment & Plan: Patient examination and evaluation. Dakin's wash performed to the bilateral lower extremity, iodine paint with a dressing consisting of Adaptic 4 x 4's Unna boot Curlex and Coban secondary to patient's venous insufficiency ulcers Significant improvement of ulcerations noted at this time. Cultures with pseudomonas aeruginosa and Staphylococcus Aureus with sensitivity to levofloxacin - per medicine recommendations will change to levofloxacin. Plan for d/c on levaquin. Patient seemingly responding to therapy well with significant improvement in size of bilateral lower extremity with improvement of wounds. Sx consult for right thigh "ruptured varicose vein" awaiting placement to SNF- the [facility] Will continue to monitor. Code(s): MSE4398 - (2) Multiple wounds of skin Current Visit: No Status: Acute Code(s): T14.8XXA - OTHER INJURY OF UNSPECIFIED BODY REGION, INITIAL ENCOUNTER (3) Ulcer of extremity due to chronic venous insufficiency Current Visit: No Status: Chronic Code(s): L98.499 - NON-PRESSURE CHRONIC ULCER OF SKIN OF SITES W UNSP SEVERITY; I87.2 - VENOUS INSUFFICIENCY (CHRONIC) (PERIPHERAL) (4) Onychomycosis Current Visit: No Status: Acute Code(s): B35.1 - TINEA UNGUIUM (5) Atrial fibrillation with RVR Current Visit: No Status: Chronic Code(s): I48.91 - UNSPECIFIED ATRIAL FIBRILLATION (6) Major depressive disorder Current Visit: No Status: Chronic Code(s): F32.9 - MAJOR DEPRESSIVE DISORDER, SINGLE EPISODE, UNSPECIFIED (7) Peripheral neuropathy Current Visit: No Status: Chronic Code(s): G62.9 - POLYNEUROPATHY, UNSPECIFIED
[2024-02-10 05:03] LABS: Absolute Neutrophil Ct (ANC) 6.49 x10^3/uL (1.4-6.9); BASOPHIL % 0.7 % (0.0-0.4); Basophil (Absolute #) 0.06 x10^3/uL (0-0.4); Eosinophil (Absolute #) 0.46 x10^3/uL (0-0.5); Hematocrit 36.5 % (42-50); Hemoglobin 10.7 g/dL (12.5-18.0); IMMATURE GRAN # 0.03 x10^3u/L (0.00-0.03); IMMATURE GRAN % 0.3 % (0.00-0.4); Lymphocyte (Absolute #) 1.54 x10^3/uL (1.0-4.6); Lymphocytes % 16.7 % (24.0-44.0); Mean Cell Volume 74.8 fL (78-100); Mean Corpuscular Hemoglobin 21.9 pg (26-32); Mean Corpuscular Hgb Concent. 29.3 g/dL (32-36); Mean Platelet Volume 9.7 fL (7.5-11.0); Monocyte (Absolute #) 0.65 x10^3/uL (0.0-1.3); Neutrophil % 70.3 % (36.0-66.0); Platelet Count 370 x10^3/uL (150-450); Red Blood Count 4.88 x10^6/uL (4.1-5.6); Red Cell Distribution Width 15.8 % (11.5-14.0); White Blood Count 9.2 x10^3/uL (4.0-10.5)
[2024-02-10 05:31] LABS: ALBUMIN 3.8 g/dL (3.5-5.0); ANION GAP 9.3 MEQ/L (5-15); BILIRUBIN,TOTAL 0.2 mg/dL (0.2-1.3); Creatinine 1 1.05 mg/dL (0.66-1.25); EST GLOMERULAR FILTRATION RATE 81.8 ML/MIN; Potassium 3.9 mmol/L (3.5-5.1); Total Protein 7.6 g/dL (6.3-8.2)
[2024-02-10 06:54] VITALS: TEMP 97.7
--- NOTE | 2024-02-10 10:44 | PCM.NOTE ---
Date and Time: 02/10/24 1038 Subjective Assessment: 58 year old male, referred by podiatry for direct admit 02/03/24 for cellulitis after patient presented to their office with BLE edema, erythema, and significant amounts of green drainage. I have reviewed documentation noting circumferential desquamation of the left leg and worsening venous insufficiency with debridement performed in office to the LLE, right anterior lateral leg wound, and right posterior leg wound. Podiatry will be following patient during his hospitalization. XRay of left foot with significant tissue swelling. BLE currently wrapped. Cultures have been obtained of drainage. Patient does have a penicillin allergy. Initial coverage with vancomycin as well as aztreonam and lasix. Culture with psuedomonas/stap aureus, vanc/aztreonam discontinued. Changed to levaquin. Surgery consulted for wound on right posterior thigh -no surgical intervention needed. Consider ID on discharge as well as continued wound therapy. 02/08/24: Met with patient bedside. No overnight events. Patient with bilateral compression dressings with noted improvement to edema. Patient states he does still have mild pain to LLE with movement and ambulation but this has improved. Endorses pain and "nodule" to right hand this morning. Sensation/ROM intact. Labs and vitals stable. Plan is for discharge to [facility] pending approval. Denies fever,cough, sob, cp, abdominal pain, MCGUIRE, dizziness, N/V/D. 02/08: No overnight events noted. States hand is feeling better. Discussed right hand xray showing no acute process. No change in BLE edema overnight, pain is still mild to LLE with movement/ambulation. SNF pending. 02/09: Patient states BLE feeling much better today. Ambulation is improving. LLE still causing mild pain, but this has improved as well. Podiatry notes reviewed, patient received " Dakin's wash to the bilateral lower extremity, iodine paint with a dressing consisting of Adaptic 4 x 4's Unna boot Curlex and Coban secondary to patient's venous insufficiency ulcers" plan for discharge to SNF on oral Levaquin until 02/15/24 pending insurance authorization. - Review of Systems Constitutional: No Symptoms Eyes: No Symptoms Ears, Nose, & Throat: No Symptoms Respiratory: No Symptoms Cardiac: No Symptoms Abdominal/Gastrointestinal: No Symptoms Genitourinary Symptoms: No Symptoms Musculoskeletal: Joint Pain Skin: Cellulitis Neurological: No Symptoms Psychological: No Symptoms Endocrine: No Symptoms Hematologic/Lymphatic: No Symptoms Immunological/Allergic: No Symptoms Objective Exam General Appearance: no apparent distress Neurologic Exam: alert, oriented x 3, cooperative Skin Exam: other (BLE edema,Multiple skin lesions, see wound assessment) Wound Assessment: Skin/Wound Assessment Wound/Incision Assessment Start: 02/03/24 17:12 Text: Status: Active Freq: Q6H Protocol: Document 02/10/24 10:00 RB (Rec: 02/10/24 10:36 RB [id number]) Wound/Incision Assessment Medial Buttock Wound Assessment Shift Assessment Wound Type reddened area Comment Pt also has small open area to scrotom, refuses to allow nurse to assess Left Upper Posterior Shoulder Wound Assessment Shift Assessment Wound Type healing wounds Wound Stage Non Pressure Wound Drainage Amount None Drainage Odor None/Absent General Appearance Open to air Comment several scabbed areas, remains true Left Upper Lateral Arm Wound Assessment Shift Assessment Wound Type healing wounds Wound Stage Non Pressure Wound General Appearance Open to air Comment several scabbed areas- no chnages at this time Left Upper Jaw Wound Assessment Shift Assessment Wound Type healing wound Wound Stage Non Pressure Wound General Appearance Open to air Topical Solution/Irrigant Saline Irrigant Comment wound in rust. no bleeding or drainage noted- remains true Anterior Chest Wound Assessment Shift Assessment Wound Type reddened areas Wound Stage Non Pressure Wound Drainage Amount None General Appearance Open to air,Reddened Comment reddened areas in bilateral chest folds. Pt requests to clean and apply barrier ointment, zinc, and Nystatin PER SELF WHEN CLEANING UP Right Posterior Thigh Wound Assessment Shift Assessment Wound Type pt reports ruptured varicose vein Wound Stage Non Pressure Wound Dressing Status Changed Secondary Dressing bordered gauze Comment C/D/I Wound Photo Photo Taken No Ears, Nose, Throat Exam: moist mucous membranes Neck Exam: normal inspection Respiratory Exam: normal breath sounds, lungs clear Cardiovascular Exam: regular rate/rhythm, normal heart sounds Gastrointestinal/Abdomen Exam: soft, normal bowel sounds Extremity Exam: inflammation, swelling Back Exam: normal inspection Male Genitalia Exam: deferred Rectal Exam: deferred Objective Data Vital Signs: Vital Signs - 24 hr Temp Pulse Resp BP Pulse Ox 02/10/24 06:53 97.7 F 64 18 120/58 96 02/10/24 03:38 97.9 F 64 18 133/61 97 02/09/24 23:45 98.2 F 63 18 110/56 98 02/09/24 19:47 98.3 F 68 18 122/59 99 02/09/24 16:00 98.1 F 73 16 130/58 93 L 02/09/24 12:00 97.8 F 62 16 124/63 97 Pain Assessment - Last Documented Pain Intensity 5 Pain Scale Used 0-10 Pain Scale Intake and Output: Intake & Output 02/07/24 02/08/24 02/09/24 02/10/24 11:59 11:59 11:59 11:59 Intake Total 1780 1040 2420 2860 Balance 1780 1040 2420 2860 Weight 115.5 kg 115.3 kg 114.3 kg Lab Results: Lab Results-Last 24 Hours 02/10/24 02/10/24 Range/Units 04:25 04:25 WBC 9.2 (4.0-10.5) x10^3/uL RBC 4.88 (4.1-5.6) x10^6/uL Hgb 10.7 L (12.5-18.0) g/dL Hct 36.5 L (42-50) % MCV 74.8 L (78-100) fL MCH 21.9 L (26-32) pg MCHC 29.3 L (32-36) g/dL RDW 15.8 H (11.5-14.0) % Plt Count 370 (150-450) x10^3/uL MPV 9.7 (7.5-11.0) fL Gran % 70.3 H (36.0-66.0) % Immature Gran % (Auto) 0.3 (0.00-0.4) % Nucleat RBC Rel Count 0.0 (0.00-0.1) % Eos # (Auto) 0.46 (0-0.5) x10^3/uL Immature Gran # (Auto) 0.03 (0.00-0.03) x10^3u/L Absolute Lymphs (auto) 1.54 (1.0-4.6) x10^3/uL Absolute Monos (auto) 0.65 (0.0-1.3) x10^3/uL Absolute Nucleated RBC 0.00 (0.00-0.01) x10^3u/L Lymphocytes % 16.7 L (24.0-44.0) % Monocytes % 7.0 (0.0-12.0) % Eosinophils % 5.0 (0.00-5.0) % Basophils % 0.7 (0.0-0.4) % Absolute Granulocytes 6.49 (1.4-6.9) x10^3/uL Basophils # 0.06 (0-0.4) x10^3/uL Sodium 142 (135-145) mmol/L Potassium 3.9 (3.5-5.1) mmol/L Chloride 99 (98-107) mmol/L Carbon Dioxide 38 H (22-30) mmol/L Anion Gap 9.3 (5-15) MEQ/L BUN 25 H (9-20) mg/dL Creatinine 1.05 (0.66-1.25) mg/dL Estimated GFR 81.8 ML/MIN Glucose 139 H (74-106) mg/dL Calcium 9.0 (8.4-10.2) mg/dL Total Bilirubin 0.20 (0.2-1.3) mg/dL AST 16 L (17-59) U/L ALT 11 (0-50) U/L Alkaline Phosphatase 86 (38-126) U/L Serum Total Protein 7.6 (6.3-8.2) g/dL Albumin 3.8 (3.5-5.0) g/dL Multi-Disciplinary Progress Notes: Multi-Disciplinary Progress Notes 02/09/24 13:00 (created 02/10/24 08:23) Case Management Note by Jud Kurtz S/Tha GALEAS AT [facility]- WILL CHECK ON PRECERT AGAIN AT THIS TIME Initialized on 02/10/24 08:23 - END OF NOTE Assessment/Plan (1) Cellulitis Current Visit: Yes Status: Acute Assessment & Plan: -Vanc/Aztreonam started, will continue, follow cultures -Podiatry following, will continue dressing changes -keep legs elevated -Cultures pending 02/04: -Culture with gram - ID, vanc discontinued, follow cultures -edema improving -xray left foot 02/05: -Cultures with pseudomonas aeruginosa and Staphylococcus Aureus with sensitivity to levofloxacin - will change to levofloxacin 02/06: -Continue levaquin for a total of 10 days, will discontinue after 02/15/24 02/10/24: -Wound with significant improvement, podiatry notes reviewed, agree with plan to d/c on levofloxacin when SNF placement available Code(s): L03.90 - CELLULITIS, UNSPECIFIED (2) Chronic diarrhea Current Visit: Yes Status: Acute Assessment & Plan: -Continue probiotics/dc flagyl -this is chronic -stool studies pending -Consider Cdiff as pt has been on mult antibiotics 02/04: -improved, only 1 BM since admission Code(s): K52.9 - NONINFECTIVE GASTROENTERITIS AND COLITIS, UNSPECIFIED (3) Multiple wounds of skin Current Visit: No Status: Acute Assessment & Plan: -upper left thigh, Left upper back, BLLE -Bacitracin ointment BID to affected areas -Pics documented in chart -BLE ext wrapped per podiatry -Wound therapy consult, appreciate recs 02/06/24: -Wound therapy recs for CLEAN W/ HIBICLENS AND APPLY BORDERED GAUZE AND CHANGE DAILY. PT. SHOULD CLEANSE W/ HIBICLENS. ZINC OXIDE AND BARRIER CREAM SHOULD BE APPLED TO FOLDS AND CEDRIC AREA. -May need wound therapy s/p d/c 02/06: -Surgery consult for wound to right posterior thigh, patient states this is a "ruptured varicose vein", appreciate recs 02/07: -Continue wound therapy, no need for surgical intervention to right posterior thigh wound Code(s): T14.8XXA - OTHER INJURY OF UNSPECIFIED BODY REGION, INITIAL ENCOUNTER (4) Atrial fibrillation with RVR Current Visit: No Status: Chronic Assessment & Plan: -H/O on Xarelto -Tele Code(s): I48.91 - UNSPECIFIED ATRIAL FIBRILLATION (5) HTN (hypertension) Current Visit: No Status: Chronic Assessment & Plan: -Stable, continue home meds, adjust as appropriate Code(s): I10 - ESSENTIAL (PRIMARY) HYPERTENSION (6) Hyperlipidemia Current Visit: No Status: Chronic Assessment & Plan: - + hx- not on any meds - Lipid panel pending -Consider statin pending results Code(s): E78.5 - HYPERLIPIDEMIA, UNSPECIFIED (7) Ulcer of extremity due to chronic venous insufficiency Current Visit: No Status: Chronic Assessment & Plan: -Podiatry following, wound pictures in chart -IV abx with vanc/azotrenam started, will follow cultures -Consider ID on discharge 02/04: -vanc d/c - continue azotrenam 02/05: Cultures with pseudomonas and staph, will change abx to levofloxacin 02/06: -Continue levaquin, switch to oral on d/c - pending placement 02/07: -Continue levquin for 10 day course 02/06/24-02/15/24 Code(s): L98.499 - NON-PRESSURE CHRONIC ULCER OF SKIN OF SITES W UNSP SEVERITY; I87.2 - VENOUS INSUFFICIENCY (CHRONIC) (PERIPHERAL) (8) Uncontrolled diabetes mellitus Current Visit: No Status: Chronic Qualifiers: Diabetes mellitus type: type 2 Glycemic state: with hyperglycemia Qualified Code(s): E11.65 - Type 2 diabetes mellitus with hyperglycemia Assessment & Plan: - Continue Humaong 10 untis TID w/meals - pt bs dropping - Continue Lantus 54 units daily - low dose humalog s/s - accuchecks ac/hs -a1c 7.64, much better controlled since last visit # Right Hand Pain -No trauma, sensation/ROM intact, will evaluate with right hand xray 02/08: -Right hand xray with no acute findings VTE: Xarelto Next of KIN: Amor [facility] [phone] D/C plan: 2-3 days Code status: SCO/DNR Code(s): L03.90 - CELLULITIS, UNSPECIFIED (2) Chronic diarrhea Current Visit: Yes Status: Acute Code(s): K52.9 - NONINFECTIVE GASTROENTERITIS AND COLITIS, UNSPECIFIED (3) Multiple wounds of skin Current Visit: No Status: Acute Code(s): T14.8XXA - OTHER INJURY OF UNSPECIFIED BODY REGION, INITIAL ENCOUNTER (4) Atrial fibrillation with RVR Current Visit: No Status: Chronic Code(s): I48.91 - UNSPECIFIED ATRIAL FIBRILLATION (5) HTN (hypertension) Current Visit: No Status: Chronic Code(s): I10 - ESSENTIAL (PRIMARY) HYPERTENSION (6) Hyperlipidemia Current Visit: No Status: Chronic Code(s): E78.5 - HYPERLIPIDEMIA, UNSPECIFIED (7) Ulcer of extremity due to chronic venous insufficiency Current Visit: No Status: Chronic Code(s): L98.499 - NON-PRESSURE CHRONIC ULCER OF SKIN OF SITES W UNSP SEVERITY; I87.2 - VENOUS INSUFFICIENCY (CHRONIC) (PERIPHERAL) (8) Uncontrolled diabetes mellitus Current Visit: No Status: Chronic Qualifiers: Diabetes mellitus type: type 2 Glycemic state: with hyperglycemia Qualified Code(s): E11.65 - Type 2 diabetes mellitus with hyperglycemia Code(s): [id number] - (9) Right hand pain Current Visit: Yes Status: Acute Code(s): M79.641 - PAIN IN RIGHT HAND
[2024-02-10 11:19] VITALS: BP 114/56; PULSE 62; RESP 19; O2SAT 98
--- NOTE | 2024-02-10 11:38 | CONS ---
CONSULT DATE: 02/07/2024 REASON FOR CONSULT: Right posterior thigh wound. HISTORY: This is a 58-year-old gentleman who presented to [facility] with a complaints of leg wound. He has poorly controlled diabetes and has had complications throughout many areas of his body with regards to wound. The only wound that I am being consulted on today and addressing is the right posterior thigh wound. The patient said that he has had abnormalities of his thigh for a very long time. His left thigh has what appears to be a large varicocele structure in the posterior region and he said that he has always been like that. In his right posterior thigh, it appears that he has likely some extremely large varices that have caused bruising. I did look at his belly and he does not have a caput medusa. On his underwear, he does have some staining with blood, which is not related to his leg wound. I asked him further about this and he said that he does know that he has had some rectal bleeding. The patient does not want any intervention for this. I have discussed with him the importance of following up with his medical doctor regarding this and he understands. He does state that he was going to have the thigh wound looked at by a vascular surgeon and he has an appointment within the next week. IMPRESSION AND PLAN: At this time, the right thigh wound appears to be more bruise. I do not see clear cellulitis here but the patient does have multiple infections throughout his entire body with regards to skin and soft tissues and so he is being treated for these. I would continue the wound care and the leg wrapping. I have not seen his lower leg and was not asked to today but I would continue the wound care there and I do think the antibiotic would help if there was a potential infection of the right thigh but it does not really look infected. 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 I do think it would be in his best interest to continue his planned follow up with a vascular surgeon and I let him know that he may follow up with our partner if he is not able to go to that appointment although I think expertise would be ideal given the unique nature of these wounds. The patients past medical history, past surgical history, medications and allergies were also reviewed with him and are all in the medical record. PLAN: No acute surgery is needed for the patient currently. He remains stable with regards to his right thigh wound. I will continue with the plan, follow up with vascular surgeon. Please call us if you have any questions or need our assistance in the future.
--- NOTE | 2024-02-10 12:13 | PCM.DS ---
Discharge Summary Date of Admission: 02/03/24 15:44 Date of Discharge: 02/10/24 Admitting Physician: SHEBA LUNDBERG MD Consults: Consults on Case 02/03/24 18:57 Consult Podiatry ROUTINE 02/07/24 09:27 Consult Surgery ROUTINE Primary Care Provider: MARCELLO CHERRY Allergies Allergies Penicillins Allergy (Verified 10/18/23 13:57) Sulfa (Sulfonamide Antibiotics) Allergy (Verified 10/18/23 13:57) Hospital Summary - Hospital Course Hospital Course: 58 year old male, referred by podiatry for direct admit 02/03/24 for cellulitis after patient presented to their office with BLE edema, erythema, and significant amounts of green drainage. I have reviewed documentation noting circumferential desquamation of the left leg and worsening venous insufficiency with debridement performed in office to the LLE, right anterior lateral leg wound, and right posterior leg wound. Podiatry will be following patient during his hospitalization. XRay of left foot with significant tissue swelling. BLE currently wrapped. Cultures have been obtained of drainage. Patient does have a penicillin allergy. Initial coverage with vancomycin as well as aztreonam and lasix. Culture with psuedomonas/stap aureus, vanc/aztreonam discontinued. Changed to levaquin with course to be completed 02/15/24. Surgery consulted for wound on right posterior thigh -no surgical intervention needed. Unable to obtain rehab placement. Will schedule patient with Dr. Uri LECHUGA for follow up as well as continued wound therapy. Patient agreeable to plan and ready for discharge. Per Podiatry - Will follow up on Wednesday. PT appt for dressing changes. Patient given instruction to shower daily with hibiclens and apply zinc oxide and barrier cream to folds and cedric area. Discharge Note New Diagnosis:Cellulitis New Medications: Levaquin Follow Up: PCP/Podiatry/ID Latest Assessment & Plan (1) Cellulitis Current Visit: Yes Status: Acute Assessment & Plan: -Vanc/Aztreonam started, will continue, follow cultures -Podiatry following, will continue dressing changes -keep legs elevated -Cultures pending 02/04: -Culture with gram - ID, vanc discontinued, follow cultures -edema improving -xray left foot 02/05: -Cultures with pseudomonas aeruginosa and Staphylococcus Aureus with sensitivity to levofloxacin - will change to levofloxacin 02/06: -Continue levaquin for a total of 10 days, will discontinue after 02/15/24 02/10/24: -Wound with significant improvement, podiatry notes reviewed, agree with plan to d/c on levofloxacin when SNF placement available Code(s): L03.90 - CELLULITIS, UNSPECIFIED (2) Chronic diarrhea Current Visit: Yes Status: Acute Assessment & Plan: -Continue probiotics/dc flagyl -this is chronic -stool studies pending -Consider Cdiff as pt has been on mult antibiotics 02/04: -improved, only 1 BM since admission Code(s): K52.9 - NONINFECTIVE GASTROENTERITIS AND COLITIS, UNSPECIFIED (3) Multiple wounds of skin Current Visit: No Status: Acute Assessment & Plan: -upper left thigh, Left upper back, BLLE -Bacitracin ointment BID to affected areas -Pics documented in chart -BLE ext wrapped per podiatry -Wound therapy consult, appreciate recs 02/06/24: -Wound therapy recs for CLEAN W/ HIBICLENS AND APPLY BORDERED GAUZE AND CHANGE DAILY. PT. SHOULD CLEANSE W/ HIBICLENS. ZINC OXIDE AND BARRIER CREAM SHOULD BE APPLED TO FOLDS AND CEDRIC AREA. -May need wound therapy s/p d/c 02/06: -Surgery consult for wound to right posterior thigh, patient states this is a "ruptured varicose vein", appreciate recs 02/07: -Continue wound therapy, no need for surgical intervention to right posterior thigh wound Code(s): T14.8XXA - OTHER INJURY OF UNSPECIFIED BODY REGION, INITIAL ENCOUNTER (4) Atrial fibrillation with RVR Current Visit: No Status: Chronic Assessment & Plan: -H/O on Xarelto -Tele Code(s): I48.91 - UNSPECIFIED ATRIAL FIBRILLATION (5) HTN (hypertension) Current Visit: No Status: Chronic Assessment & Plan: -Stable, continue home meds, adjust as appropriate Code(s): I10 - ESSENTIAL (PRIMARY) HYPERTENSION (6) Hyperlipidemia Current Visit: No Status: Chronic Assessment & Plan: - + hx- not on any meds - Lipid panel pending -Consider statin pending results Code(s): E78.5 - HYPERLIPIDEMIA, UNSPECIFIED (7) Ulcer of extremity due to chronic venous insufficiency Current Visit: No Status: Chronic Assessment & Plan: -Podiatry following, wound pictures in chart -IV abx with vanc/azotrenam started, will follow cultures -Consider ID on discharge 02/04: -vanc d/c - continue azotrenam 02/05: Cultures with pseudomonas and staph, will change abx to levofloxacin 02/06: -Continue levaquin, switch to oral on d/c - pending placement 02/07: -Continue levquin for 10 day course 02/06/24-02/15/24 Code(s): L98.499 - NON-PRESSURE CHRONIC ULCER OF SKIN OF SITES W UNSP SEVERITY; I87.2 - VENOUS INSUFFICIENCY (CHRONIC) (PERIPHERAL) (8) Uncontrolled diabetes mellitus Current Visit: No Status: Chronic Qualifiers: Diabetes mellitus type: type 2 Glycemic state: with hyperglycemia Quali fied Code(s): E11.65 - Type 2 diabetes mellitus with hyperglycemia Assessment & Plan: - Continue Humaong 10 untis TID w/meals - pt bs dropping - Continue Lantus 54 units daily - low dose humalog s/s - accuchecks ac/hs -a1c 7.64, much better controlled since last visit # Right Hand Pain -No trauma, sensation/ROM intact, will evaluate with right hand xray 02/08: -Right hand xray with no acute findings I spent 35 minutes [id number] with the patient on the day of discharge performing discharge exam, discussing hospital stay and discharge instructions w ith patient and caregivers, preparation of discharge records, prescriptions & referral forms and addressing any questions/concerns the patient had as documented above. - Vitals & Intake/Output Vital Signs: Vital Signs Temperature 97.7 F 02/10/24 11:18 Pulse Rate 62 02/10/24 11:18 Respiratory Rate 19 02/10/24 11:18 Blood Pressure 114/56 02/10/24 11:18 O2 Sat by Pulse Oximetry 98 02/10/24 11:18 Intake & Output: Intake & Output 02/08/24 02/09/24 02/10/24 02/11/24 11:59 11:59 11:59 11:59 Intake Total 1040 2420 2860 Balance 1040 2420 2860 Weight 115.3 kg 114.3 kg - Lab Result Diagrams: 02/10/24 04:25 02/10/24 04:25 Lab Results-Last 24 Hrs: Lab Results-Last 24 Hours 02/10/24 02/10/24 Range/Units 04:25 04:25 WBC 9.2 (4.0-10.5) x10^3/uL RBC 4.88 (4.1-5.6) x10^6/uL Hgb 10.7 L (12.5-18.0) g/dL Hct 36.5 L (42-50) % MCV 74.8 L (78-100) fL MCH 21.9 L (26-32) pg MCHC 29.3 L (32-36) g/dL RDW 15.8 H (11.5-14.0) % Plt Count 370 (150-450) x10^3/uL MPV 9.7 (7.5-11.0) fL Gran % 70.3 H (36.0-66.0) % Immature Gran % (Auto) 0.3 (0.00-0.4) % Nucleat RBC Rel Count 0.0 (0.00-0.1) % Eos # (Auto) 0.46 (0-0.5) x10^3/uL Immature Gran # (Auto) 0.03 (0.00-0.03) x10^3u/L Absolute Lymphs (auto) 1.54 (1.0-4.6) x10^3/uL Absolute Monos (auto) 0.65 (0.0-1.3) x10^3/uL Absolute Nucleated RBC 0.00 (0.00-0.01) x10^3u/L Lymphocytes % 16.7 L (24.0-44.0) % Monocytes % 7.0 (0.0-12.0) % Eosinophils % 5.0 (0.00-5.0) % Basophils % 0.7 (0.0-0.4) % Absolute Granulocytes 6.49 (1.4-6.9) x10^3/uL Basophils # 0.06 (0-0.4) x10^3/uL Sodium 142 (135-145) mmol/L Potassium 3.9 (3.5-5.1) mmol/L Chloride 99 (98-107) mmol/L Carbon Dioxide 38 H (22-30) mmol/L Anion Gap 9.3 (5-15) MEQ/L BUN 25 H (9-20) mg/dL Creatinine 1.05 (0.66-1.25) mg/dL Estimated GFR 81.8 ML/MIN Glucose 139 H (74-106) mg/dL Calcium 9.0 (8.4-10.2) mg/dL Total Bilirubin 0.20 (0.2-1.3) mg/dL AST 16 L (17-59) U/L ALT 11 (0-50) U/L Alkaline Phosphatase 86 (38-126) U/L Serum Total Protein 7.6 (6.3-8.2) g/dL Albumin 3.8 (3.5-5.0) g/dL Micro Results-Entire Visit: Microbiology 02/03/24 18:52 Salmonella/Shigella Screen - Final Stool Stool Culture Result 1 - Final Escherichia coli Shiga Toxins EIA - Final 02/03/24 17:30 Wound Culture - Final Drainage - Right Posterior Pseudomonas Aeruginosa Accuchecks Date 02/10/24 Date 02/10/24 Date 02/09/24 Date 02/09/24 Time 11:18 Time 06:53 Time 21:00 Time 16:20 - Procedures and Test Procedures and Tests throughout Hospitalization: Therapy Orders & Screens 02/03/24 16:55 OT Screen per Nursing Assess ONCE Comment: Protocol Order Physician Instructions: Greater than 3 points order OT Admission Screening Reason For Exam: Triggered on Admission Diagnosis: Cellulitis Open Wound/Cellutlitis/Pressure Ulcers: Yes Acute Fx/ORIF/Change in wt bearing status: No Severe MUSCULOSKELETAL pain: No ADL Dysfunction: No Acute CVA w/Hemiparesis/Hemiplegia: No Decreased Functional Mobility/Strength: No Sprain/Strain: No Acute Post-op Mobility Dysfunction: No Total Points: 5 PT Screen per Nursing Assess ONCE Comment: Protocol Order Physician Instructions: Greater than 3 points order PT Admission Screenin Reason For Exam: Triggered on Admission Diagnosis: Cellulitis Open Wound/Cellutlitis/Pressure Ulcers: Yes Acute Fx/ORIF/Change in wt bearing status: No Severe MUSCULOSKELETAL pain: No ADL Dysfunction: No Acute CVA w/Hemiparesis/Hemiplegia: No Decreased Functional Mobility/Strength: No Sprain/Strain: No Acute Post-op Mobility Dysfunction: No Total Points: 5 Discharge Exam General Appearance: no apparent distress Neurologic Exam: alert, oriented x 3, cooperative Eye Exam: PERRL Ears, Nose, Throat Exam: normal ENT inspection Neck Exam: normal inspection Respiratory Exam: normal breath sounds, lungs clear Cardiovascular Exam: regular rate/rhythm, normal heart sounds Gastrointestinal/Abdomen Exam: soft, normal bowel sounds Male Genitalia Exam: deferred Rectal Exam: deferred Back Exam: normal inspection Extremity Exam: pedal edema, swelling Skin Exam: other (see wound assessment) Wound Assessment: Skin/Wound Assessment Wound/Incision Assessment Start: 02/03/24 17:12 Text: Status: Active Freq: Q6H Protocol: Document 02/10/24 10:00 RB (Rec: 02/10/24 10:36 RB [id number]) Wound/Incision Assessment Medial Buttock Wound Assessment Shift Assessment Wound Type reddened area Comment Pt also has small open area to scrotom, refuses to allow nurse to assess Left Upper Posterior Shoulder Wound Assessment Shift Assessment Wound Type healing wounds Wound Stage Non Pressure Wound Drainage Amount None Drainage Odor None/Absent General Appearance Open to air Comment several scabbed areas, remains true Left Upper Lateral Arm Wound Assessment Shift Assessment Wound Type healing wounds Wound Stage Non Pressure Wound General Appearance Open to air Comment several scabbed areas- no chnages at this time Left Upper Jaw Wound Assessment Shift Assessment Wound Type healing wound Wound Stage Non Pressure Wound General Appearance Open to air Topical Solution/Irrigant Saline Irrigant Comment wound in rust. no bleeding or drainage noted- remains true Anterior Chest Wound Assessment Shift Assessment Wound Type reddened areas Wound Stage Non Pressure Wound Drainage Amount None General Appearance Open to air,Reddened Comment reddened areas in bilateral chest folds. Pt requests to clean and apply barrier ointment, zinc, and Nystatin PER SELF WHEN CLEANING UP Right Posterior Thigh Wound Assessment Shift Assessment Wound Type pt reports ruptured varicose vein Wound Stage Non Pressure Wound Dressing Status Changed Secondary Dressing bordered gauze Comment C/D/I Wound Photo Photo Taken No Final Diagnosis/Problem List - Final Discharge Diagnosis/Problem (1) Cellulitis Current Visit: Yes Status: Acute Code(s): L03.90 - CELLULITIS, UNSPECIFIED (2) Chronic diarrhea Current Visit: Yes Status: Chronic Code(s): K52.9 - NONINFECTIVE GASTROENTERITIS AND COLITIS, UNSPECIFIED (3) Multiple wounds of skin Current Visit: No Status: Chronic Code(s): T14.8XXA - OTHER INJURY OF UNSPECIFIED BODY REGION, INITIAL ENCOUNTER (4) Atrial fibrillation with RVR Current Visit: No Status: Chronic Code(s): I48.91 - UNSPECIFIED ATRIAL FIBRILLATION (5) HTN (hypertension) Current Visit: No Status: Chronic Code(s): I10 - ESSENTIAL (PRIMARY) HYPERT ENSION (6) Hyperlipidemia Current Visit: No Status: Chronic Code(s): E78.5 - HYPERLIPIDEMIA, UNSPECIFIED (7) Ulcer of extremity due to chronic venous insufficiency Current Visit: No Status: Chronic Code(s): L98.499 - NON-PRESSURE CHRONIC ULCER OF SKIN OF SITES W UNSP SEVERITY; I87.2 - VENOUS INSUFFICIENCY (CHRONIC) (PERIPHERAL) (8) Uncontrolled diabetes mellitus Current Visit: No Status: Chronic Code(s): PHO0745 - (9) Right hand pain Current Visit: Yes Status: Ruled-out Code(s): M79.641 - PAIN IN RIGHT HAND - Discharge Disposition: Home, Self-Care Condition: Stable Prescriptions: New levoFLOXacin [Levofloxacin] 750 mg PO DAILY 5 Days #5 tablet Nystatin Powder 15 gm [Nystop Powder 15 gm] 1 gm TP BID Continue Insulin Lispro [Insulin Lispro Kwikpen U-100] 30 unit SQ BID Metoprolol Tartrate 25 mg [Lopressor 25MG Tab] 25 mg PO BID Rivaroxaban [Xarelto] 20 mg PO DAILY Ergocalciferol (Vitamin D2) [Vitamin D2] 1,250 mcg PO UD Torsemide 20 mg [Demadex 20 mg] 20 mg PO BID Insulin Glargine [Lantus Insulin] 54 unit SQ QAM Potassium Chloride 10 meq PO BID Additional Instructions: WASH DAILY WITH HIBICLENSE AND APPLY ZINC OXIDE AND BARRIER CREAM TO FOLDS AND CEDRIC AREA YOUR LOWER LEG DRESSINGS NEED CHANGED TWICE WEEK. DR. KITCHEN WILL SEE YOU ON MONDAYS THEN YOU WILL SEE OTPT [facility] THERAPY ON [place]UR[place] FOR DRESSING CHANGES YOU HAVE AN APT FOR DRESSING CHANGE ON 02/16@ 2 PM WITH [facility]ERAP[facility] Follow up with: IMTIAZ LOMBARDO DPM [ACTIVE STAFF] - 02/14/24 10:00 am EVA ODELL FNP [Primary Care Provider] - Call for Appointment VEENA WARD [NON-STAFF PHY W/O PRIVILEGES] -
[2024-03-02] MEDS ORDERED: VITAMIN D2 PO SCH (10:00)
== END 2024-02-10 13:10 | disposition home or self-care (01) | DRG 603 ==
LOC: LAB 15:27 → EDSTATUS 15:43 → OBSVTOIN 15:44 → MED SURG 15:44
PROVIDERS: ADMIT Internal Medicine; ATTEND Internal Medicine
PROC: 2W1MX6Z Compression of Left Lower Extremity using Pressure Dressing (ICD-10-PCS; principal; 2024-02-04)
PROC: 2W1LX6Z Compression of Right Lower Extremity using Pressure Dressing (ICD-10-PCS; 2024-02-04)
DX: L03.116 Cellulitis of left lower limb (principal); I48.20 Chronic atrial fibrillation, unspecified; L03.115 Cellulitis of right lower limb; R60.0 Localized edema; K52.9 Noninfective gastroenteritis and colitis, unspecified; S70.922A Unspecified superficial injury of left thigh, initial encounter; E78.5 Hyperlipidemia, unspecified; I87.2 Venous insufficiency (chronic) (peripheral); N30.10 Interstitial cystitis (chronic) without hematuria; E11.621 Type 2 diabetes mellitus with foot ulcer; E11.65 Type 2 diabetes mellitus with hyperglycemia; M79.641 Pain in right hand; I11.0 Hypertensive heart disease with heart failure; I50.9 Heart failure, unspecified; Z79.899 Other long term (current) drug therapy; Z59.811 Housing instability, housed, with risk of homelessness; G62.9 Polyneuropathy, unspecified; B35.1 Tinea unguium
CPT/HCPCS: 11042; 11045; 29580; 36415; 73120; 73630; 80053; 80061; 82947; 83036; 83721; 85025; 85027; 87045; 87046; 87070; 87077; 87186; 87427; 87493; 99213; 99222; 99232; J1817; J1940; J1956; J2405; Q3014; A9270-GY; J3370

== ENCOUNTER 2024-05-19 09:52 | Emergency (ER) | payer OTHER ==
--- NOTE | 2024-05-19 10:00 | ERPHSYRPT ---
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 Morneo who was found to have bilateral lower extremity skin infection and was placed on clindamycin yesterday. He also was having some pain and so he was given a prescription that he started yesterday for hydrocodone. Patient is allergic to penicillin and sulfa. He noticed that he started having red itchy tender skin after he began the medication. Patient is not wheezing. He denies chest pain. He denies shortness of breath. Patient has a history of atrial fibrillation, chronic angina, peripheral neuropathy, osteoarthritis and chronic leg wounds which he has Unna boot on. He has some complaints of uncomfortable Unna boot placement especially on the right lower extremity. Timing/Duration: yesterday Quality: itchy, painful Severity: mild Location: torso (Bilateral upper extremities), hands, extremities Possible Causes: medications Associated Symptoms: denies symptoms Allergies/Adverse Reactions: Penicillins Allergy (Verified 10/18/23 13:57) Sulfa (Sulfonamide Antibiotics) Allergy (Verified 10/18/23 13:57) Home Medications: Ergocalciferol (Vitamin D2) [Vitamin D2] 1,250 mcg PO UD 02/05/23 [History] Insulin Lispro [Insulin Lispro Kwikpen U-100] 30 unit SQ BID 02/05/23 [History] Metoprolol Tartrate 25 mg [Lopressor 25MG Tab] 25 mg PO BID 02/05/23 [History] Rivaroxaban [Xarelto] 20 mg PO DAILY 02/05/23 [History] Insulin Glargine [Lantus Insulin] 54 unit SQ QAM 10/18/23 [History] Torsemide 20 mg [Demadex 20 mg] 20 mg PO BID 10/18/23 [History] Potassium Chloride 10 meq PO BID 02/03/24 [History] Hydrocodone/Acetaminophen [Hydrocodone-Acetamin 5-325 mg] 1 tab PO Q6HPRN PRN MDD 4 05/19/24 [History] clindamycin HCL [Clindamycin HCl] 300 mg PO QID 08/23/24 [History] Hx Tetanus, Diphtheria Vaccination/Date Given: No Hx Influenza Vaccination/Date Given: No Hx Pneumococcal Vaccination/Date Given: No Travel Risk - International Travel Have you traveled outside of the country in past 3 weeks: No - Emerging Infectious Disease Are you exhibiting symptoms associated with any current EIDs: No - Review of Systems Constitutional: No Symptoms Eyes: No Symptoms Ears, Nose, & Throat: No Symptoms Respiratory: No Symptoms Cardiac: No Symptoms Abdominal/Gastrointestinal: No Symptoms Genitourinary Symptoms: No Symptoms Musculoskeletal: No Symptoms Skin: Rash, Other (Redness itching) Neurological: No Symptoms Psychological: No Symptoms Endocrine: No Symptoms Hematologic/Lymphatic: No Symptoms Immunological/Allergic: No Symptoms All Other Systems: Reviewed and Negative - Past Medical History Pertinent Past Medical History: Yes Neurological History: Peripheral Neuropathy ENT History: No Pertinent History Cardiac History: Angina, Arrhythmia Respiratory History: No Pertinent History Endocrine Medical History: Diabetes Type II Musculoskeletal History: Osteoarthritis GI Medical History: No Pertinent History History: No Pertinent History Psycho-Social History: No Pertinent History Male Reproductive Disorders: No Pertinent History Other Medical History: HISTORY OF B LE WOUNDS, PARTIAL SEPTUS INVERTUS, RUPTURED L ROTATOR CUFF. - Past Surgical History Past Surgical History: Yes Neuro Surgical History: No Pertinent History Cardiac: No Pertinent History Respiratory: No Pertinent History Gastrointestinal: No Pertinent History Genitourinary: No Pertinent History Musculoskeletal: No Pertinent History Male Surgical History: No Pertinent History Other Surgical History: PINWHEEL DRAIN IN BACK TO DRAIN FLUIDS_DONE BY [employer]ZA 2021 - Social History Smoking Status: Never smoker Exposure to second hand smoke: Yes Drug Use: none Patient Lives Alone: Yes - Social Determinants of Health Will the patient participate in the screening: Yes Do you worry about a steady place to live?: Yes In the past 12 months,have you had to go without utilities?: No Transportation Issues: No Has anyone in your support network made you feel unsafe?: No Have you or anyone in your house had to go without enough: Yes - Nursing Vital Signs Nursing Vital Signs: Initial Vital Signs Temperature 99.4 F 05/19/24 09:55 Respiratory Rate 18 05/19/24 09:55 Blood Pressure 150/62 05/19/24 09:55 O2 Sat by Pulse Oximetry 98 05/19/24 09:55 Pain Scale Pain Intensity 4 - Physical Exam General Appearance: no apparent distress, alert, anxiety, obese Eye Exam: PERRL/EOMI, eyes nml inspection Ears, Nose, Throat Exam: normal ENT inspection, moist mucous membranes Neck Exam: normal inspection, non-tender, supple, full range of motion Respiratory Exam: normal breath sounds, lungs clear, airway intact, No chest tenderness, No respiratory distress Cardiovascular Exam: regular rate/rhythm, normal heart sounds, normal peripheral pulses Gastrointestinal/Abdomen Exam: No tenderness Rectal Exam: not done Extremity Exam: other (Bilateral upper extremity neck and skin of torso with redness rash and itchiness. Bilateral lower extremities have Unna boot in place. The right side the Unna boot is to distal to his right groin.) Neurologic Exam: alert, oriented x 3, cooperative, staff radiologist II-XII nml as tested, sensation nml Skin Exam: rash (The above) Lymphatic Exam: No adenopathy SpO2 Interpretation: normal O2 Delivery: Room Air - Course Nursing assessment & vital signs reviewed: Yes - Progress Progress: unchanged Progress Note: 05/19/24 10:23 My medical decision making and the assignment of low complexity to this patient's medical issue today is based on review of the patient's past medical history, review of the patient's medication list, reviewed patient drug allergy list, history present illness and physical findings on examination. No radiographic or laboratory studies are necessary in this patient's workup. Patient likely has a mild to moderate allergic reaction to either the hydrocodone or the clindamycin medication. He was told to stop this medication. He will return back to Dr. Moreno for placement on a new antibiotic and for adjustment of his Unna boots. Patient is aware I will only be addressing the allergic reaction. Counseled pt/family regarding: diagnosis, need for follow-up Medical Desision Making - Diagnostic Testing Diagnostic test were ordered, analyzed, and reviewed by me: No - Risk of complications The pt has a mod risk of morbidity or mortality based on: Need for prescription drug management - Departure Departure Disposition: Home Clinical Impression: Allergic reaction caused by a drug Condition: Stable Critical Care Time: No Referrals: EVA ODELL FNP [Primary Care Provider] - Follow up/PCP as directed Additional Instructions: Stop your hydrocodone and clindamycin medications. Follow-up with Dr. Moreno today, 05/19/2024, to discuss which different antibiotic he wants to place you on and for obtaining a follow-up appointment for management of your Unna boot complaints. Make sure you keep your skin moistened twice a day with unknown scented lotion. Obtain Benadryl [id number] and take 25 mg orally 3 times a day for 4 days. Also, monitor your blood sugar closely while taking the steroids (prednisone) Prescriptions: Prednisone 10 mg [Deltasone 10 mg] 10 mg PO TID #12 tablet Famotidine 20 mg [Pepcid 20 MG] 20 mg PO DAILY #5 tablet
[2024-05-19 10:04] VITALS: RESP 18; TEMP 99.4
[2024-05-19] MEDS ORDERED: BENADRYL 25 MG CAPSULE ONE ×2 (10:23→10:24)
[2024-05-19] MEDS ORDERED: Pepcid 20 MG ONE (10:23)
[2024-05-19] MEDS ORDERED: solu-MEDROL ONE (10:23)
[2024-05-19] MEDS ORDERED: Sterile H2O 10 ml IJ ONE (10:23)
[2024-05-19] MEDS: solu-MEDROL 125 MG, Sterile H2O 10 ml 2 ML IM ONE (10:26)
[2024-05-19] MEDS: Pepcid 20 MG PO ONE (10:26)
[2024-05-19] MEDS: BENADRYL 25 MG CAPSULE PO ONE (10:26)
[2024-05-19 11:21] VITALS: BP 129/58; PULSE 78; O2SAT 96
== END 2024-05-19 11:27 | disposition home or self-care (01) ==
LOC: ED 09:52
DX: L27.0 Generalized skin eruption due to drugs and medicaments taken internally (principal); E11.42 Type 2 diabetes mellitus with diabetic polyneuropathy; Z79.4 Long term (current) use of insulin; Z79.01 Long term (current) use of anticoagulants; Z79.899 Other long term (current) drug therapy; Z59.819 Housing instability, housed unspecified; Z59.41 Food insecurity
CPT/HCPCS: 96372; 99283; J2919; A9270-GY

== ENCOUNTER 2024-06-05 10:24 | Emergency (ER) | payer OTHER ==
[2024-06-05 10:54] VITALS: TEMP 98.3
--- NOTE | 2024-06-05 11:11 | ERPHSYRPT ---
- History of Present Illness Time Seen by Provider: 06/05/24 10:40 Source: patient Exam Limitations: no limitations Patient Subjective Stated Complaint: pt took one day of clindamycin last week and it caused his skin to peel all over his body Triage Nursing Assessment: Pt brought self to the ER, hypertensive, denies pain, skin peeling on hands, chest, legs, groin area, some areas leaking, pulses normal, no difficulty breathing, walks with a cane Physician History: Patient here with skin peeling as well as several chronic skin issues. Patient placed on clindamycin last week. He developed skin peeling. States that he immediately stopped taking the clindamycin. It has since been improving. However he is flaking from several different areas. Patient has his lower extremities wrapped at this point in time. This is due to a previous draining issue. Patient has diabetes, poor circulation, chronic drainage from this. Patient is taking PO well. Same number of urinations and defecations. The patient has no signs of altered mental status, nuchal rigidity, signs of meningitis. The patient is up-to-date on all vaccinations. No signs of sepsis, severe illness. Allergies/Adverse Reactions: clindamycin Allergy (Verified 06/05/24 10:44) Penicillins Allergy (Verified 06/05/24 10:44) Sulfa (Sulfonamide Antibiotics) Allergy (Verified 06/05/24 10:44) Home Medications: Ergocalciferol (Vitamin D2) [Vitamin D2] 1,250 mcg PO UD 02/05/23 [History] Insulin Lispro [Insulin Lispro Kwikpen U-100] 30 unit SQ BID 02/05/23 [History] Metoprolol Tartrate 25 mg [Lopressor 25MG Tab] 25 mg PO BID 02/05/23 [History] Rivaroxaban [Xarelto] 20 mg PO DAILY 02/05/23 [History] Insulin Glargine [Lantus Insulin] 54 unit SQ QAM 10/18/23 [History] Torsemide 20 mg [Demadex 20 mg] 20 mg PO BID 10/18/23 [History] Potassium Chloride 10 meq PO BID 02/03/24 [History] Hydrocodone/Acetaminophen [Hydrocodone-Acetamin 5-325 mg] 1 tab PO Q6HPRN PRN MDD 4 05/19/24 [History] Hx Tetanus, Diphtheria Vaccination/Date Given: No Hx Influenza Vaccination/Date Given: No Hx Pneumococcal Vaccination/Date Given: No Travel Risk - International Travel Have you traveled outside of the country in past 3 weeks: No - Emerging Infectious Disease Are you exhibiting symptoms associated with any current EIDs: No - Past Medical History Pertinent Past Medical History: Yes Neurological History: Peripheral Neuropathy ENT History: No Pertinent History Cardiac History: Angina, Arrhythmia Respiratory History: No Pertinent History Endocrine Medical History: Diabetes Type II Musculoskeletal History: Osteoarthritis GI Medical History: No Pertinent History History: No Pertinent History Psycho-Social History: No Pertinent History Male Reproductive Disorders: No Pertinent History Other Medical History: HISTORY OF B LE WOUNDS, PARTIAL SEPTUS INVERTUS, RUPTURED L ROTATOR CUFF. - Past Surgical History Past Surgical History: Yes Neuro Surgical History: No Pertinent History Cardiac: No Pertinent History Respiratory: No Pertinent History Gastrointestinal: No Pertinent History Genitourinary: No Pertinent History Musculoskeletal: No Pertinent History Male Surgical History: No Pertinent History Other Surgical History: PINWHEEL DRAIN IN BACK TO DRAIN FLUIDS_DONE BY [employer] MEZA 2021 - Social History Smoking Status: Never smoker Exposure to second hand smoke: No Drug Use: none Patient Lives Alone: Yes - Social Determinants of Health Will the patient participate in the screening: Yes Do you worry about a steady place to live?: Yes Do you have any problems with any of the following?: No known problems In the past 12 months,have you had to go without utilities?: No Transportation Issues: No Has anyone in your support network made you feel unsafe?: No Have you or anyone in your house had to go without enough: Yes - Nursing Vital Signs Nursing Vital Signs: Initial Vital Signs Temperature 98.3 F 06/05/24 10:45 Pulse Rate 90 06/05/24 10:45 Blood Pressure 169/79 06/05/24 10:45 O2 Sat by Pulse Oximetry 99 06/05/24 10:45 Pain Scale Pain Intensity 0 - Physical Exam SpO2: 99 Comments: 06/05/24 11:09 Review of Systems Constitutional: Negative for fever. HENT: Negative for congestion. Respiratory: Negative for shortness of breath. Cardiovascular: Negative for chest pain. Gastrointestinal: Negative for abdominal pain. Genitourinary: Negative for dysuria. Musculoskeletal: Negative for back pain. Skin: Negative for rash. Neurological: Negative for headaches. Psychiatric/Behavioral: Negative for behavioral problems. All other systems reviewed and are negative. Physical Exam Vitals signs and nursing note reviewed. Constitutional: Appearance: Patient is well-developed. HENT: Head: Normocephalic and atraumatic. Eyes: Conjunctiva/sclera: Conjunctivae normal. Neck: Musculoskeletal: Normal range of motion. Trachea: No tracheal deviation. Cardiovascular: Rate and Rhythm: Normal rate. Pulmonary: Effort: Pulmonary effort is normal. No respiratory distress. Abdominal: Palpations: Abdomen is soft. Musculoskeletal: General: No deformity. Skin: General: Skin is warm and dry. Several areas of skin flaking. No signs of redness, infection. Lower extremities are wrapped from previous wound dressing. Patient has some increased redness, inflammation behind his right thigh. Does not appear acute cellulitis. Possibly more in line with dermatitis and possible yeast infection. Scaling. Neurological/ Psychiatric: Mental Status: Mental status, behavior, interaction with environment is appropriate for patient's age and condition - Course Nursing assessment & vital signs reviewed: Yes Ordered Tests: Active Orders 24 hr Category Date Time Status EKG-ER Only STAT Care 06/05/24 10:55 Completed IV Insertion STAT Care 06/05/24 10:55 Completed CBC W DIFF Stat Lab 06/05/24 11:06 Completed CMP Stat Lab 06/05/24 11:06 Completed CULTURE,WOUND Stat Lab 06/05/24 11:30 Received CULTURE,WOUND Stat Lab 06/05/24 11:30 Received LIPASE Stat Lab 06/05/24 11:06 Completed Lactic Acid Stat Lab 06/05/24 11:23 Completed Lab/Rad Data: Laboratory Result Diagrams 06/05/24 11:06 06/05/24 11:06 Laboratory Results 06/05/24 06/05/24 06/05/24 Range/Units 11:23 11:06 11:06 WBC 6.1 (4.23-9.07) x10^3/uL RBC 4.01 L (4.63-6.08) x10^6/uL Hgb 9.1 L (13.7-17.5) g/dL Hct 30.3 L (40.1-51.0) % MCV 75.6 L (79.0-92.2) fL MCH 22.7 L (25.7-32.2) pg MCHC 30.0 L (32.3-36.5) g/dL RDW 15.8 H (11.6-14.4) % Plt Count 328 (163-337) x10^3/uL MPV 9.1 L (9.4-12.4) fL Gran % 76.0 H (34.0-67.9) % Immature Gran % (Auto) 0.5 H (0.001-0.429) % Nucleat RBC Rel Count 0.0 (0.00-0.2) % Eos # (Auto) 0.29 (0.04-0.54) x10^3/uL Immature Gran # (Auto) 0.03 (0.001-0.031) x10^3u/L Absolute Lymphs (auto) 0.66 L (1.32-3.57) x10^3/uL Absolute Monos (auto) 0.46 (0.30-0.82) x10^3/uL Absolute Nucleated RBC 0.00 (0.00-0.012) x10^3u/L Lymphocytes % 10.8 L (21.8-53.1) % Monocytes % 7.5 (5.3-12.2) % Eosinophils % 4.7 (0.8-7.0) % Basophils % 0.5 (0.2-1.2) % Absolute Granulocytes 4.66 (1.78-5.38) x10^3/uL Basophils # 0.03 (0.01-0.08) x10^3/uL Sodium 138 (135-145) mmol/L Potassium 4.0 (3.5-5.1) mmol/L Chloride 100 (98-107) mmol/L Carbon Dioxide 33 H (22-30) mmol/L Anion Gap 9.1 (5-15) MEQ/L BUN 7 L (9-20) mg/dL Creatinine 0.73 (0.66-1.25) mg/dL Estimated GFR 104.2 ML/MIN Glucose 214 H (74-106) mg/dL Lactic Acid 1.7 (0.4-2.0) Calcium 8.7 (8.4-10.2) mg/dL Total Bilirubin 0.30 (0.2-1.3) mg/dL AST 19 (17-59) U/L ALT 13 (0-50) U/L Alkaline Phosphatase 120 (38-126) U/L Serum Total Protein 6.6 (6.3-8.2) g/dL Albumin 3.2 L (3.5-5.0) g/dL Lipase 33 (23-300) U/L - Progress Progress: improved Progress Note: 06/05/24 11:10 Differential diagnosis includes poor wound healing, yeast infection, skin scaling. Will screen patient for severe illness. Plan to have PT evaluate the wound as we do not have wound nurses at [facility] anymore. Based on their evaluation they did recommend culturing the wound. Will do this, set patient up with home health nurse. Patient will also need to call his primary care doctor have close follow-up with PCP in the next 24 to 48 hours. 06/05/24 12:31 Patient's sepsis workup came back negative. Negative lactic acid, no white blood cell count elevation. Patient's hemoglobin is low however does appear chronically low. No obvious electrolyte abnormalities. I did discuss the above findings with the patient. We will give nystatin powder to go home with for patient to use on his more areas of scaly rash. He will follow-up with his PCP for reexam in 24 to 40 hours. Return here sooner for any new or changing symptoms. Consult for discharge planning placed in computer to set patient up with home health nurse for frequent checks and wound care at home. Counseled pt/family regarding: lab results, diagnosis, need for follow-up, rad results - Departure Departure Disposition: Home Clinical Impression: Antibiotic causing adverse effect, Dermatitis Condition: Stable Critical Care Time: No Referrals: EVA ODELL FNP [Primary Care Provider] - Follow up/PCP as directed
[2024-06-05 11:29] LABS: Absolute Neutrophil Ct (ANC) 4.66 x10^3/uL (1.78-5.38); BASOPHIL % 0.5 % (0.2-1.2); Basophil (Absolute #) 0.03 x10^3/uL (0.01-0.08); Eosinophil % 4.7 % (0.8-7.0); Eosinophil (Absolute #) 0.29 x10^3/uL (0.04-0.54); Hematocrit 30.3 % (40.1-51.0); Hemoglobin 9.1 g/dL (13.7-17.5); IMMATURE GRAN # 0.03 x10^3u/L (0.001-0.031); IMMATURE GRAN % 0.5 % (0.001-0.429); Lymphocyte (Absolute #) 0.66 x10^3/uL (1.32-3.57); Lymphocytes % 10.8 % (21.8-53.1); Mean Cell Volume 75.6 fL (79.0-92.2); Mean Corpuscular Hemoglobin 22.7 pg (25.7-32.2); Mean Platelet Volume 9.1 fL (9.4-12.4); Monocyte (Absolute #) 0.46 x10^3/uL (0.30-0.82); Monocytes % 7.5 % (5.3-12.2); Platelet Count 328 x10^3/uL (163-337); Red Blood Count 4.01 x10^6/uL (4.63-6.08); Red Cell Distribution Width 15.8 % (11.6-14.4); White Blood Count 6.1 x10^3/uL (4.23-9.07)
[2024-06-05 11:41] LABS: ALBUMIN 3.2 g/dL (3.5-5.0); ANION GAP 9.1 MEQ/L (5-15); BILIRUBIN,TOTAL 0.3 mg/dL (0.2-1.3); Calcium 8.7 mg/dL (8.4-10.2); Creatinine 1 0.73 mg/dL (0.66-1.25); EST GLOMERULAR FILTRATION RATE 104.2 ML/MIN; Total Protein 6.6 g/dL (6.3-8.2)
[2024-06-05 12:27] VITALS: BP 152/78; PULSE 76; RESP 18
[2024-06-05 12:32] VITALS: O2SAT 99
== END 2024-06-05 12:28 | disposition home or self-care (01) ==
LOC: ED 10:24
DX: L27.0 Generalized skin eruption due to drugs and medicaments taken internally (principal); T36.8X5A Adverse effect of other systemic antibiotics, initial encounter; E11.42 Type 2 diabetes mellitus with diabetic polyneuropathy; Z79.4 Long term (current) use of insulin; Z79.01 Long term (current) use of anticoagulants; Z79.891 Long term (current) use of opiate analgesic; Z79.899 Other long term (current) drug therapy; Z59.819 Housing instability, housed unspecified; Z59.41 Food insecurity
CPT/HCPCS: 36000; 36415; 80053; 83605; 83690; 85025; 87070; 87077; 87186; 93005; 99283

== ENCOUNTER 2024-06-12 08:34 | Observation (INO) | payer OTHER ==
--- NOTE | 2024-06-12 08:37 | ERPHSYRPT ---
- History of Present Illness Time Seen by Provider: 06/12/24 08:37 Source: patient Exam Limitations: no limitations Physician History: This is a morbidly obese white male patient who was brought to the emergency department by the paramedics secondary to worsening gluteal and bilateral lower extremity wounds. 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 Moreno, who has placed right l ower extremity Unna boot to the upper thigh and the left lower extremity Unna boot below the knee. The wounds are worsening and patient is having pain in these areas. Patient is allergic to penicillin and sulfa. Patient has history of arrhythmia and is on Xarelto. He has type 2 diabetes, hypertension, chronic angina and peripheral neuropathy. Patient is not on any antibiotics. He has not had a fever at home. He denies chest pain. He denies shortness of breath. Timing/Duration: worse, other (Progressively worsening chronic wounds) Quality: painful Severity: moderate Location: extremities (Bilateral lower extremity wounds and tenderness.) Associated Symptoms: change in skin texture, No difficulty breathing, No fever Allergies/Adverse Reactions: clindamycin Allergy (Verified 06/12/24 08:36) Penicillins Allergy (Verified 06/12/24 08:36) Sulfa (Sulfonamide Antibiotics) Allergy (Verified 06/12/24 08:36) Home Medications: Ergocalciferol (Vitamin D2) [Vitamin D2] 1,250 mcg PO UD 02/05/23 [History] Insulin Lispro [Insulin Lispro Kwikpen U-100] 30 unit SQ BID 02/05/23 [History] Metoprolol Tartrate 25 mg [Lopressor 25MG Tab] 25 mg PO BID 02/05/23 [History] Rivaroxaban [Xarelto] 20 mg PO DAILY 02/05/23 [History] Insulin Glargine [Lantus Insulin] 54 unit SQ QAM 10/18/23 [History] Torsemide 20 mg [Demadex 20 mg] 20 mg PO BID 10/18/23 [History] Potassium Chloride 10 meq PO BID 02/03/24 [History] Hydrocodone/Acetaminophen [Hydrocodone-Acetamin 5-325 mg] 1 tab PO Q6HPRN PRN MDD 4 05/19/24 [History] Hx Tetanus, Diphtheria Vaccination/Date Given: No Hx Influenza Vaccination/Date Given: No Hx Pneumococcal Vaccination/Date Given: No Travel Risk - International Travel Have you traveled outside of the country in past 3 weeks: No - Emerging Infectious Disease Are you exhibiting symptoms associated with any current EIDs: No - Review of Systems Constitutional: Weakness Eyes: No Symptoms (Chronic) Ears, Nose, & Throat: No Symptoms Respiratory: No Symptoms Cardiac: No Symptoms Abdominal/Gastrointestinal: No Symptoms Genitourinary Symptoms: No Symptoms Musculoskeletal: Other (Bilateral lower extremity pain in the areas of skin ulcerations/wounds) Skin: Other (Bilateral lower extremity skin ulceration and wounds in the areas of the Unna boot. Left buttock skin ulceration) Neurological: No Symptoms Psychological: No Symptoms Endocrine: No Symptoms Hematologic/Lymphatic: No Symptoms Immunological/Allergic: No Symptoms All Other Systems: Reviewed and Negative - Past Medical History Pertinent Past Medical History: Yes Neurological History: Peripheral Neuropathy ENT History: No Pertinent History Cardiac History: Angina, Arrhythmia Respiratory History: No Pertinent History Endocrine Medical History: Diabetes Type II Musculoskeletal History: Osteoarthritis GI Medical History: No Pertinent History History: No Pertinent History Psycho-Social History: No Pertinent History Male Reproductive Disorders: No Pertinent History Other Medical History: HISTORY OF B LE WOUNDS, PARTIAL SEPTUS INVERTUS, RUPTURED L ROTATOR CUFF. - Past Surgical History Past Surgical History: Yes Neuro Surgical History: No Pertinent History Cardiac: No Pertinent History Respiratory: No Pertinent History Gastrointestinal: No Pertinent History Genitourinary: No Pertinent History Musculoskeletal: No Pertinent History Male Surgical History: No Pertinent History Other Surgical History: PINWHEEL DRAIN IN BACK TO DRAIN FLUIDS_DONE BY [employer] MEZA 2021 - Social History Smoking Status: Never smoker Exposure to second hand smoke: No Drug Use: none Patient Lives Alone: Yes - Social Determinants of Health Will the patient participate in the screening: Yes Do you worry about a steady place to live?: Yes In the past 12 months,have you had to go without utilities?: No Transportation Issues: No Has anyone in your support network made you feel unsafe?: No Have you or anyone in your house had to go without enough: Yes - Nursing Vital Signs Nursing Vital Signs: Initial Vital Signs Temperature 98.4 F 06/12/24 08:37 Pulse Rate 91 H 06/12/24 08:37 Respiratory Rate 18 06/12/24 08:37 Blood Pressure 145/72 06/12/24 08:37 O2 Sat by Pulse Oximetry 96 09/16/24 08:37 Pain Scale Pain Intensity 5 - Physical Exam General Appearance: no apparent distress, alert, anxiety, obese Eye Exam: PERRL/EOMI, eyes nml inspection Ears, Nose, Throat Exam: normal ENT inspection, moist mucous membranes Neck Exam: normal inspection, non-tender, supple, full range of motion Respiratory Exam: airway intact, No chest tenderness, No respiratory distress Cardiovascular Exam: regular rate/rhythm, normal heart sounds, normal peripheral pulses Gastrointestinal/Abdomen Exam: soft, normal bowel sounds, No tenderness Extremity Exam: pelvis stable, tenderness (In the area of the upper portion of the right lower extremity skin ulceration. Similar finding below the knee on t he left lower extremity.) Neurologic Exam: alert, oriented x 3, cooperative, wreath machine tender II-XII nml as tested, sensation nml Skin Exam: other (Inguinal and genital clinical findings of yeast infection) Lymphatic Exam: No adenopathy SpO2 Interpretation: normal O2 Delivery: Room Air - Course Nursing assessment & vital signs reviewed: Yes Ordered Tests: Active Orders 24 hr Category Date Time Status IV Insertion STAT Care 06/12/24 09:13 Active ACO SDOH Referral ONCE Cons 06/12/24 09:02 Active BLOOD CULTURE Stat Lab 06/12/24 09:37 Received CBC W DIFF Stat Lab 06/12/24 09:40 Completed CMP Stat Lab 06/12/24 09:20 Completed CULTURE,WOUND Stat Lab 06/12/24 09:14 Ordered Lactic Acid Stat Lab 06/12/24 09:26 Completed Medication Summary Generic Name Dose Route Start Last Admin Trade Name Freq PRN Reason Stop Dose Admin Sodium Chloride 1,000 mls @ 100 mls/hr 06/12/24 09:15 06/12/24 10:15 Sodium Chloride 0.9% 1000 Ml IV 07/12/24 09:14 100 mls/hr .Q10H GERRI Administration Discontinued Medications Generic Name Dose Route Start Last Admin Trade Name Freq PRN Reason Stop Dose Admin Morphine Sulfate 4 mg 06/12/24 09:13 06/12/24 10:18 Morphine Sulfate 4 Mg/Ml Injection IV 06/12/24 09:14 4 mg STAT ONE Administration Morphine Sulfate Confirm 06/12/24 10:13 Morphine Sulfate 4 Mg/Ml Injection Administered 06/12/24 10:14 Dose 4 mg .ROUTE .STK-MED ONE Ondansetron HCl 4 mg 06/12/24 09:13 06/12/24 10:17 Ondansetron Hcl 4 Mg/2 Ml Vial IV 06/12/24 09:14 4 mg STAT ONE Administration Ondansetron HCl Confirm 06/12/24 10:13 Ondansetron Hcl 4 Mg/2 Ml Vial Administered 06/12/24 10:14 Dose 4 mg .ROUTE .STK-MED ONE Lab/Rad Data: Laboratory Result Diagrams 06/12/24 09:40 06/12/24 09:20 Laboratory Results 06/12/24 06/12/24 06/12/24 Range/Units 09:40 09:26 09:20 WBC 5.8 (4.23-9.07) x10^3/uL RBC 4.19 L (4.63-6.08) x10^6/uL Hgb 9.3 L (13.7-17.5) g/dL Hct 30.9 L (40.1-51.0) % MCV 73.7 L (79.0-92.2) fL MCH 22.2 L (25.7-32.2) pg MCHC 30.1 L (32.3-36.5) g/dL RDW 15.4 H (11.6-14.4) % Plt Count 342 H (163-337) x10^3/uL MPV 9.6 (9.4-12.4) fL Gran % 71.5 H (34.0-67.9) % Immature Gran % (Auto) 0.3 (0.001-0.429) % Nucleat RBC Rel Count 0.0 (0.00-0.2) % Eos # (Auto) 0.46 (0.04-0.54) x10^3/uL Immature Gran # (Auto) 0.02 (0.001-0.031) x10^3u/L Absolute Lymphs (auto) 0.63 L (1.32-3.57) x10^3/uL Absolute Monos (auto) 0.51 (0.30-0.82) x10^3/uL Absolute Nucleated RBC 0.00 (0.00-0.012) x10^3u/L Lymphocytes % 10.9 L (21.8-53.1) % Monocytes % 8.8 (5.3-12.2) % Eosinophils % 8.0 H (0.8-7.0) % Basophils % 0.5 (0.2-1.2) % Absolute Granulocytes 4.12 (1.78-5.38) x10^3/uL Basophils # 0.03 (0.01-0.08) x10^3/uL Sodium 139 (135-145) mmol/L Potassium 3.6 (3.5-5.1) mmol/L Chloride 97 L (98-107) mmol/L Carbon Dioxide 35 H (22-30) mmol/L Anion Gap 10.0 (5-15) MEQ/L BUN 6 L (9-20) mg/dL Creatinine 0.76 (0.66-1.25) mg/dL Estimated GFR 102.9 ML/MIN Glucose 242 H (74-106) mg/dL Lactic Acid 1.7 (0.4-2.0) Calcium 8.4 (8.4-10.2) mg/dL Total Bilirubin 0.50 (0.2-1.3) mg/dL AST 16 L (17-59) U/L ALT 12 (0-50) U/L Alkaline Phosphatase 115 (38-126) U/L Serum Total Protein 6.9 (6.3-8.2) g/dL Albumin 3.3 L (3.5-5.0) g/dL - Progress Progress: unchanged, pain not gone completely, re-examined Progress Note: 06/12/24 09:23 My medical decision making and the assignment of moderate to high complexity on this patient's medical issue today is based on review of the patient's past medical history, review of the patient's medication list, reviewed patient drug allergy list, history present illness and physical findings on examination. The workup in this patient includes placement of intravenous line, CBC, CMP, blood cultures, wound cultures, lactic acid level, infusion of 4 mg intravenous morphine and 4 mg intravenous Zofran. Differential diagnosis includes but is not limited to yeast infection, bacterial wound infection 06/12/24 11:01 I interpreted the patient's laboratory data results. Based on the laboratory data results, the patient does not have any acute or emergent medical issue. However, this patient is unable to care for himself. He does need a significant amount of help in caring for his wounds as well as hygiene. He has pressure ulcers in the buttock area as well as those being caused by the Unna boots themselves. He would also benefit from a consultation from his employee communications intern Dr. Moreno and social service consultation for placement into a alf. I spoke with Dr. Freire, the telehospitalist on at this time. She agrees with the plan of placing him in observation and obtaining the consultations for his wound care and hygiene management. She also agrees with obtaining consultation from podiatry and social problems specialist. Counseled pt/family regarding: lab results, diagnosis Medical Desision Making - Discussion of managment Care discussed with:: hospitalist Agreed on:: Treatment plan Will see patient: in hospital - Diagnostic Testing Diagnostic test were ordered, analyzed, and reviewed by me: Yes - Risk of complications The pt has a high risk of morbidity or mortality based on: Decision regarding hospitilization or escalation of hosp level of care - Departure Departure Disposition: Observation Clinical Impression: Decubitus ulcer due to device, Unable to care for self Condition: Fair Critical Care Time: No Referrals: EVA ODELL, HUMAN RESOURCES ADMIN [Primary Care Provider] - Follow up/PCP as directed
[2024-06-12 09:44] LABS: Absolute Neutrophil Ct (ANC) 4.12 x10^3/uL (1.78-5.38); BASOPHIL % 0.5 % (0.2-1.2); Basophil (Absolute #) 0.03 x10^3/uL (0.01-0.08); Eosinophil (Absolute #) 0.46 x10^3/uL (0.04-0.54); Hematocrit 30.9 % (40.1-51.0); Hemoglobin 9.3 g/dL (13.7-17.5); IMMATURE GRAN # 0.02 x10^3u/L (0.001-0.031); IMMATURE GRAN % 0.3 % (0.001-0.429); Lymphocyte (Absolute #) 0.63 x10^3/uL (1.32-3.57); Lymphocytes % 10.9 % (21.8-53.1); Mean Cell Volume 73.7 fL (79.0-92.2); Mean Corpuscular Hemoglobin 22.2 pg (25.7-32.2); Mean Corpuscular Hgb Concent. 30.1 g/dL (32.3-36.5); Mean Platelet Volume 9.6 fL (9.4-12.4); Monocyte (Absolute #) 0.51 x10^3/uL (0.30-0.82); Monocytes % 8.8 % (5.3-12.2); Neutrophil % 71.5 % (34.0-67.9); Platelet Count 342 x10^3/uL (163-337); Red Blood Count 4.19 x10^6/uL (4.63-6.08); Red Cell Distribution Width 15.4 % (11.6-14.4); White Blood Count 5.8 x10^3/uL (4.23-9.07)
[2024-06-12 09:58] LABS: ALBUMIN 3.3 g/dL (3.5-5.0); BILIRUBIN,TOTAL 0.5 mg/dL (0.2-1.3); Calcium 8.4 mg/dL (8.4-10.2); Creatinine 1 0.76 mg/dL (0.66-1.25); EST GLOMERULAR FILTRATION RATE 102.9 ML/MIN; Potassium 3.6 mmol/L (3.5-5.1); Total Protein 6.9 g/dL (6.3-8.2)
[2024-06-12] MEDS ORDERED: Zofran 4 MG/2 ML VIAL ONE (10:13)
[2024-06-12] MEDS ORDERED: MORPHINE SULFATE 4 MG INJ ONE (10:13)
[2024-06-12] MEDS: Sodium Chloride 0.9% 1000 ML 1,000 ML IV SCH (10:15)
[2024-06-12] MEDS: Zofran 4 MG/2 ML VIAL IV ONE (10:17)
[2024-06-12] MEDS: MORPHINE SULFATE 4 MG INJ IV ONE (10:18)
--- NOTE | 2024-06-12 11:09 | PCM.HP ---
History of Present Illness - Chief Complaint Chief Complaint: cellulitis Date: 06/12/24 History of Present Illness: is a 59 year old male. Medications & Allergies Home Medications: Home Medication List Ergocalciferol (Vitamin D2) [Vitamin D2] 1,250 mcg PO UD 02/05/23 [History Confirmed 06/05/24] Insulin Lispro [Insulin Lispro Kwikpen U-100] 30 unit SQ BID 02/05/23 [History Confirmed 06/05/24] Metoprolol Tartrate 25 mg [Lopressor 25MG Tab] 25 mg PO BID 02/05/23 [History Confirmed 06/05/24] Rivaroxaban [Xarelto] 20 mg PO DAILY 02/05/23 [History Confirmed 06/05/24] Insulin Glargine [Lantus Insulin] 54 unit SQ QAM 10/18/23 [History Confirmed 06/05/24] Torsemide 20 mg [Demadex 20 mg] 20 mg PO BID 10/18/23 [History Confirmed 06/05/24] Potassium Chloride 10 meq PO BID 02/03/24 [History Confirmed 06/05/24] Nystatin Powder 15 gm [Nystop Powder 15 gm] 1 gm TP BID 02/10/24 [Rx Confirmed 06/05/24] Hydrocodone/Acetaminophen [Hydrocodone-Acetamin 5-325 mg] 1 tab PO Q6HPRN PRN MDD 4 05/19/24 [History Confirmed 06/05/24] Allergies/Adverse Reactions: Allergies Allergy/AdvReac Type Severity Reaction Status Date / Time clindamycin Allergy Verified 06/12/24 08:36 Penicillins Allergy Verified 06/12/24 08:36 Sulfa (Sulfonamide Allergy Verified 06/12/24 08:36 Antibiotics) - Past Medical History Past Medical History: Yes Neurological History: Peripheral Neuropathy ENT History: No Pertinent History Cardiac History: Angina, Arrhythmia Respiratory History: No Pertinent History Endocrine Medical History: Diabetes Type II Musculoskelatal History: Osteoarthritis GI Medical History: No Pertinent History History: No Pertinent History Pyscho-Social History: No Pertinent History Male Reproductive Disorders: No Pertinent History Comment: HISTORY OF B LE WOUNDS, PARTIAL SEPTUS INVERTUS, RUPTURED L ROTATOR CUFF. - Past Surgical History Past Surgical History: Yes Neuro Surgical History: No Pertinent History Cardiac History: No Pertinent History Respiratory Surgery: No Pertinent History GI Surgical History: No Pertinent History Genitourinary Surgical Hx: No Pertinent History Musculskeletal Surgical Hx: No Pertinent History Male Surgical History: No Pertinent History Other Surgical History: PINWHEEL DRAIN IN BACK TO DRAIN FLUIDS_DONE BY [employer] MEZA 2021 - Social History Smoking Status: Never smoker Exposure to second hand smoke: No Alcohol: None Drug Use: none - Social Determinants of Health Will the patient participate in the screening: Yes Do you worry about a steady place to live?: Yes Do you have any problems with any of the following?: No known problems In the past 12 months,have you had to go without utilities?: No Have you or anyone in your house had to go without enough: Yes Transportation Issues: No Has anyone in your support network made you feel unsafe?: No Does the patient want assistance with any of the above?: No - Physical Exam Vital Signs: Vital Signs - 24 hr Temp Pulse Resp BP BP Pulse Ox 06/12/24 10:30 70 18 114/62 88 L 06/12/24 10:12 72 18 124/62 96 06/12/24 10:07 116/69 92 L 06/12/24 08:37 98.4 F 91 H 18 145/72 96 Results - Labs Lab/Micro Results: Lab Results-Last 24 Hours 06/12/24 06/12/24 06/12/24 Range/Units 09:20 09:26 09:40 WBC 5.8 (4.23-9.07) x10^3/uL RBC 4.19 L (4.63-6.08) x10^6/uL Hgb 9.3 L (13.7-17.5) g/dL Hct 30.9 L (40.1-51.0) % MCV 73.7 L (79.0-92.2) fL MCH 22.2 L (25.7-32.2) pg MCHC 30.1 L (32.3-36.5) g/dL RDW 15.4 H (11.6-14.4) % Plt Count 342 H (163-337) x10^3/uL MPV 9.6 (9.4-12.4) fL Gran % 71.5 H (34.0-67.9) % Immature Gran % (Auto) 0.3 (0.001-0.429) % Nucleat RBC Rel Count 0.0 (0.00-0.2) % Eos # (Auto) 0.46 (0.04-0.54) x10^3/uL Immature Gran # (Auto) 0.02 (0.001-0.031) x10^3u/L Absolute Lymphs (auto) 0.63 L (1.32-3.57) x10^3/uL Absolute Monos (auto) 0.51 (0.30-0.82) x10^3/uL Absolute Nucleated RBC 0.00 (0.00-0.012) x10^3u/L Lymphocytes % 10.9 L (21.8-53.1) % Monocytes % 8.8 (5.3-12.2) % Eosinophils % 8.0 H (0.8-7.0) % Basophils % 0.5 (0.2-1.2) % Absolute Granulocytes 4.12 (1.78-5.38) x10^3/uL Basophils # 0.03 (0.01-0.08) x10^3/uL Sodium 139 (135-145) mmol/L Potassium 3.6 (3.5-5.1) mmol/L Chloride 97 L (98-107) mmol/L Carbon Dioxide 35 H (22-30) mmol/L Anion Gap 10.0 (5-15) MEQ/L BUN 6 L (9-20) mg/dL Creatinine 0.76 (0.66-1.25) mg/dL Estimated GFR 102.9 ML/MIN Glucose 242 H (74-106) mg/dL Lactic Acid 1.7 (0.4-2.0) Calcium 8.4 (8.4-10.2) mg/dL Total Bilirubin 0.50 (0.2-1.3) mg/dL AST 16 L (17-59) U/L ALT 12 (0-50) U/L Alkaline Phosphatase 115 (38-126) U/L Serum Total Protein 6.9 (6.3-8.2) g/dL Albumin 3.3 L (3.5-5.0) g/dL Assessment/Plan (1) History of atrial fibrillation Current Visit: Yes Status: Acute Code(s): Z86.79 - PERSONAL HISTORY OF OTHER DISEASES OF THE CIRCULATORY SYSTEM (2) HTN (hypertension) Current Visit: Yes Status: Acute Code(s): I10 - ESSENTIAL (PRIMARY) HYPERTENSION (3) HLD (hyperlipidemia) Current Visit: Yes Status: Acute Code(s): E78.5 - HYPERLIPIDEMIA, UNSPECIFIED (4) Ulcer of extremity due to chronic venous insufficiency Current Visit: Yes Status: Acute Code(s): L98.499 - NON-PRESSURE CHRONIC ULCER OF SKIN OF SITES W UNSP SEVERITY; I87.2 - VENOUS INSUFFICIENCY (CHRONIC) (PERIPHERAL) (5) Type 2 diabetes mellitus Current Visit: Yes Status: Acute (6) Cellulitis Current Visit: No Status: Acute Code(s): L03.90 - CELLULITIS, UNSPECIFIED
--- NOTE | 2024-06-12 12:05 | PCM.HP ---
<CYNTHIA LATIF - Last Filed: 06/12/24 13:40> History of Present Illness - Chief Complaint Chief Complaint: cellulitis Date: 06/12/24 History of Present Illness: Mr. Hidalgo is a 59 year old male with a pmhx of peripheral neuropathy, AFIB(xarelto), DMII, and OA who presented to ED 06/12/24 with worsening gluteal and BLE wound. Patient states onset was approximately 2-3 weeks ago. He is currently being treated by podiatry Dr. Moreno with Edita cano to the LLE and RLE. Reviewed recent cultures from 06/05/24 and 06/07/24 showing proteus mirabilis and pseudomonas aeruginosa to the right posterior leg and right groin. Additional culture to the right lower extremity showing serratia fonticola. Also reviewed previous cultures from 05/11/24 and 05/15/24 of the right upper leg and right calf which showed staph aureus- it appears from the external pharmacy that the patient was prescribed clindamycin (which caused a rash)and later doxycycline following these cultures. Patient with allergies to penicillins, clinamycin, and sulfa. Upon examination, patient is noted with areas of excoriation and yeast to his abdominal folds and groin. His BLE wrapped in compression dressings. Right posterior thigh with open wound/drainage. Right groin with open wound/drainage. Patient has out patient appt. with Dr. Carin Sparks to evaluate wounds to the thigh/groin. Patient is requiring 2L of oxygen - due to desatting in ED -RA at baseline, states that he is not short of breath. Denies fever,cough, sob, cp, abdominal pain, MCGUIRE, dizziness, N/V/D. Upon arrival to ED vitals are stable. Lab findings remarkable for microcytic, hypochromic anemia which appears chronic with lab review, hgb at 9.3 and hyperglycemia with glucose level at 242 -most recent A1c 05/31/24 at 7.48. - Review of Systems Constitutional: Weakness Eyes: No Symptoms Ears, Nose, & Throat: No Symptoms Respiratory: No Symptoms Cardiac: Edema (BLE) Abdominal/Gastrointestinal: Other (constipation/diarrhea - chronic) Genitourinary Symptoms: No Symptoms Musculoskeletal: No Symptoms Skin: Cellulitis, Skin Lesions (right posterior thigh wound - open with purulent drainage/right groin open wound with drainage - excoration/yeast to abdominal folds/groin) Neurological: No Symptoms Psychological: No Symptoms Endocrine: No Symptoms Hematologic/Lymphatic: Anemia Immunological/Allergic: No Symptoms Medications & Allergies Home Medications: Home Medication List Ergocalciferol (Vitamin D2) [Vitamin D2] 1,250 mcg PO WEEKLY 02/05/23 [History Confirmed 06/12/24] Insulin Lispro [Insulin Lispro Kwikpen U-100] 30 unit SQ BID 02/05/23 [History Confirmed 06/12/24] Metoprolol Tartrate 25 mg [Lopressor 25MG Tab] 25 mg PO BID 02/05/23 [History Confirmed 06/12/24] Insulin Glargine [Lantus Insulin] 60 unit SQ BREAKFAST 10/18/23 [History Confirmed 06/12/24] Torsemide 20 mg [Demadex 20 mg] 20 mg PO BID 10/18/23 [History Confirmed 06/12/24] Potassium Chloride 10 meq PO BID 02/03/24 [History Confirmed 06/12/24] Atorvastatin Calcium 10 mg PO HS 06/12/24 [History Confirmed 06/12/24] Atorvastatin Calcium 20 mg PO DAILY 06/12/24 [History Confirmed 06/12/24] Famotidine 20 mg PO HS 06/12/24 [History Confirmed 06/12/24] Rivaroxaban [Xarelto] 20 mg PO HS 06/12/24 [History Confirmed 06/12/24] Ropinirole HCl 0.5 mg [Requip 0.5 MG] 0.5 mg PO HS 06/12/24 [History Confirmed 06/12/24] Allergies/Adverse Reactions: Allergies Allergy/AdvReac Type Severity Reaction Status Date / Time clindamycin Allergy Verified 06/12/24 08:36 Penicillins Allergy Verified 06/12/24 08:36 Sulfa (Sulfonamide Allergy Verified 06/12/24 08:36 Antibiotics) - Past Medical History Past Medical History: Yes Neurological History: Peripheral Neuropathy ENT History: No Pertinent History Cardiac History: Angina, Arrhythmia Respiratory History: No Pertinent History Endocrine Medical History: Diabetes Type II Musculoskelatal History: Osteoarthritis GI Medical History: No Pertinent History History: No Pertinent History Pyscho-Social History: No Pertinent History Male Reproductive Disorders: No Pertinent History Comment: HISTORY OF B LE WOUNDS, PARTIAL SEPTUS INVERTUS, RUPTURED L ROTATOR CUFF. - Past Surgical History Past Surgical History: Yes Neuro Surgical History: No Pertinent History Cardiac History: No Pertinent History Respiratory Surgery: No Pertinent History GI Surgical History: No Pertinent History Genitourinary Surgical Hx: No Pertinent History Musculskeletal Surgical Hx: No Pertinent History Male Surgical History: No Pertinent History Other Surgical History: PINWHEEL DRAIN IN BACK TO DRAIN FLUIDS_DONE BY [employer] SPARKS 2021 - Social History Smoking Status: Never smoker Exposure to second hand smoke: No Alcohol: None Drug Use: none - Social Determinants of Health Will the patient participate in the screening: Yes Do you worry about a steady place to live?: Yes Do you have any problems with any of the following?: No known problems In the past 12 months,have you had to go without utilities?: No Have you or anyone in your house had to go without enough: Yes Transportation Issues: No Has anyone in your support network made you feel unsafe?: No Does the patient want assistance with any of the above?: No - Physical Exam Vital Signs: Vital Signs - 24 hr Temp Pulse Resp BP BP Pulse Ox 06/12/24 11:30 69 20 105/59 93 L 06/12/24 11:00 72 18 125/61 90 L 06/12/24 10:30 70 18 114/62 88 L 06/12/24 10:12 72 18 124/62 96 06/12/24 10:07 116/69 92 L 06/12/24 08:37 98.4 F 91 H 18 145/72 96 General Appearance: no apparent distress Neurologic Exam: alert, oriented x 3, cooperative Eye Exam: PERRL/EOMI Ears, Nose, Throat Exam: normal ENT inspection Neck Exam: normal inspection Respiratory Exam: normal breath sounds, lungs clear Cardiovascular Exam: regular rate/rhythm, normal heart sounds Gastrointestinal/Abdomen Exam: soft, normal bowel sounds Male Genitalia Exam: other (erythema/excoriation to scrotum) Rectal Exam: deferred Back Exam: normal inspection Extremity Exam: inflammation, pedal edema, swelling, tenderness Skin Exam: other (right groin open wound/erythema/drainage right posterior thigh wound with surrounding erythema/induration/purulent drainage abdominal/groin folds excoriation/yeast dermatitis) Results - Labs Lab/Micro Results: Lab Results-Last 24 Hours 06/12/24 06/12/24 06/12/24 Range/Units 09:20 09:26 09:40 WBC 5.8 (4.23-9.07) x10^3/uL RBC 4.19 L (4.63-6.08) x10^6/uL Hgb 9.3 L (13.7-17.5) g/dL Hct 30.9 L (40.1-51.0) % MCV 73.7 L (79.0-92.2) fL MCH 22.2 L (25.7-32.2) pg MCHC 30.1 L (32.3-36.5) g/dL RDW 15.4 H (11.6-14.4) % Plt Count 342 H (163-337) x10^3/uL MPV 9.6 (9.4-12.4) fL Gran % 71.5 H (34.0-67.9) % Immature Gran % (Auto) 0.3 (0.001-0.429) % Nucleat RBC Rel Count 0.0 (0.00-0.2) % Eos # (Auto) 0.46 (0.04-0.54) x10^3/uL Immature Gran # (Auto) 0.02 (0.001-0.031) x10^3u/L Absolute Lymphs (auto) 0.63 L (1.32-3.57) x10^3/uL Absolute Monos (auto) 0.51 (0.30-0.82) x10^3/uL Absolute Nucleated RBC 0.00 (0.00-0.012) x10^3u/L Lymphocytes % 10.9 L (21.8-53.1) % Monocytes % 8.8 (5.3-12.2) % Eosinophils % 8.0 H (0.8-7.0) % Basophils % 0.5 (0.2-1.2) % Absolute Granulocytes 4.12 (1.78-5.38) x10^3/uL Basophils # 0.03 (0.01-0.08) x10^3/uL Sodium 139 (135-145) mmol/L Potassium 3.6 (3.5-5.1) mmol/L Chloride 97 L (98-107) mmol/L Carbon Dioxide 35 H (22-30) mmol/L Anion Gap 10.0 (5-15) MEQ/L BUN 6 L (9-20) mg/dL Creatinine 0.76 (0.66-1.25) mg/dL Estimated GFR 102.9 ML/MIN Glucose 242 H (74-106) mg/dL Lactic Acid 1.7 (0.4-2.0) Calcium 8.4 (8.4-10.2) mg/dL Total Bilirubin 0.50 (0.2-1.3) mg/dL AST 16 L (17-59) U/L ALT 12 (0-50) U/L Alkaline Phosphatase 115 (38-126) U/L Serum Total Protein 6.9 (6.3-8.2) g/dL Albumin 3.3 L (3.5-5.0) g/dL Assessment/Plan (1) Cellulitis Current Visit: No Status: Acute Assessment & Plan: -Predisposing factor of chronic venous insuffiency -Reviewed recent cultures from 06/05/24 and 06/07/24 showing proteus mirabilis and pseudomonas aeruginosa to the right posterior leg and right groin. Additional culture to the right lower extremity showing serratia fonticola -previous cultures from 05/11/24 and 05/15/24 of the right upper leg and right calf which showed staph aureus- it appears from the external pharmacy that the patient was prescribed clindamycin (which caused a rash)and later doxycycline following these cultures -Will start on levaquin based on previous cultures -PCT, ESR, CRP -Culture open wound with drainage -john borders -elevated affected limbs -Doppler BLE/ venous/arterial -Consider MRI/CT -Podiatry consult -wound therapy eval -Patient unable to care for himself at home, CM to look into placement -pt/ot Code(s): L03.90 - CELLULITIS, UNSPECIFIED (2) Ulcer of extremity due to chronic venous insufficiency Current Visit: Yes Status: Acute Assessment & Plan: -see cellulitis Code(s): L98.499 - NON-PRESSURE CHRONIC ULCER OF SKIN OF SITES W UNSP SEVERITY; I87.2 - VENOUS INSUFFICIENCY (CHRONIC) (PERIPHERAL) (3) History of atrial fibrillation Current Visit: Yes Status: Acute Assessment & Plan: -H/O on Xarelto -Tele Code(s): Z86.79 - PERSONAL HISTORY OF OTHER DISEASES OF THE CIRCULATORY SYSTEM (4) HTN (hypertension) Current Visit: Yes Status: Acute Assessment & Plan: -Stable, continue home meds, adjust as appropriate Code(s): I10 - ESSENTIAL (PRIMARY) HYPERTENSION (5) HLD (hyperlipidemia) Current Visit: Yes Status: Acute Assessment & Plan: -not on home meds, will check lipid, may add statin pending results Code(s): E78.5 - HYPERLIPIDEMIA, UNSPECIFIED (6) Anemia Current Visit: Yes Status: Acute Assessment & Plan: -appears chronic -iron profile -Monitor cbc daily Code(s): D64.9 - ANEMIA, UNSPECIFIED (7) Type 2 diabetes mellitus Current Visit: Yes Status: Acute Assessment & Plan: -SSI/glargine -ADA diet -A1c from 05/31/24 at 7.48 VTE: Xarelto PPI: protonix Dispo: 1-3 days (8) Yeast dermatitis Current Visit: Yes Status: Acute Assessment & Plan: -noted on abdominal folds and groin -Nystatin powder -Diflucan contraindicated w/levaquin Code(s): B37.2 - CANDIDIASIS OF SKIN AND NAIL Telemedicine Encounter - Telemedicine Encounter Telemedicine Encounter: "The entirety of this encounter was performed via Telemedicine" This visit was performed using real-time audio and video connection between my location and thepatients locationwith the assistance of a surrogateat the patients location. Written or verbal consent was obtained from the patient/guardian to perform this visit using[facility] technology. Any patient questions regarding the telemedicine interaction were answered. <MANDO BLUE - Last Filed: 06/12/24 18:55> History of Present Illness - Chief Complaint History of Present Illness: is a 59 year old male. - Physical Exam Vital Signs: Vital Signs - 24 hr Temp Pulse Resp BP BP Pulse Ox 06/12/24 18:12 96 06/12/24 16:32 97.8 F 70 18 139/66 95 06/12/24 14:57 98 06/12/24 12:53 98.1 F 76 20 150/68 97 06/12/24 12:32 98.1 F 76 20 150/68 97 06/12/24 11:30 69 20 105/59 93 L 06/12/24 11:00 72 18 125/61 90 L 06/12/24 10:30 70 18 114/62 88 L 06/12/24 10:12 72 18 124/62 96 06/12/24 10:07 116/69 92 L 06/12/24 08:37 98.4 F 91 H 18 145/72 96 Wound Assessment: Skin/Wound Assessment Wound/Incision Assessment Start: 06/12/24 14:22 Text: Status: Active Freq: Q6H Protocol: Document 06/12/24 18:00 RF (Rec: 06/12/24 18:18 RF [id number]) Wound/Incision Assessment Right Posterior Thigh Wound Assessment Shift Assessment Wound Type VARICOSE VEIN Wound Stage Non Pressure Wound Dressing Status Changed Drainage Amount Moderate Drainage Description Serosanguineous Drainage Odor Foul Odor General Appearance Reddened,Draining Surrounding Tissue Dark Red,Purple Topical Solution/Irrigant Saline Irrigant Primary Dressing BOARDERED GAUZE Comment CLEANED WITH HIBICLENS AND IODINE Other Wound Assessment Shift Assessment Wound Type Maceration Wound Stage Non Pressure Wound Drainage Amount None Drainage Description Serosanguineous Drainage Odor Foul Odor General Appearance Open to air Wound Bed Greatest Portion Red (Granulation) Wound Bed Lesser Portion Red (Granulation) Surrounding Tissue Bright Red,Macerated Wound Photo Photo Taken Yes Date: 06/12/24 Time: 17:00 Comment: PHOTOS IN CHART Results - Labs Lab/Micro Results: Lab Results-Last 24 Hours 06/12/24 06/12/24 06/12/24 Range/Units 09:20 09:26 09:40 WBC 5.8 (4.23-9.07) x10^3/uL RBC 4.19 L (4.63-6.08) x10^6/uL Hgb 9.3 L (13.7-17.5) g/dL Hct 30.9 L (40.1-51.0) % MCV 73.7 L (79.0-92.2) fL MCH 22.2 L (25.7-32.2) pg MCHC 30.1 L (32.3-36.5) g/dL RDW 15.4 H (11.6-14.4) % Plt Count 342 H (163-337) x10^3/uL MPV 9.6 (9.4-12.4) fL Gran % 71.5 H (34.0-67.9) % Immature Gran % (Auto) 0.3 (0.001-0.429) % Nucleat RBC Rel Count 0.0 (0.00-0.2) % Eos # (Auto) 0.46 (0.04-0.54) x10^3/uL Immature Gran # (Auto) 0.02 (0.001-0.031) x10^3u/L Absolute Lymphs (auto) 0.63 L (1.32-3.57) x10^3/uL Absolute Monos (auto) 0.51 (0.30-0.82) x10^3/uL Absolute Nucleated RBC 0.00 (0.00-0.012) x10^3u/L Lymphocytes % 10.9 L (21.8-53.1) % Monocytes % 8.8 (5.3-12.2) % Eosinophils % 8.0 H (0.8-7.0) % Basophils % 0.5 (0.2-1.2) % Absolute Granulocytes 4.12 (1.78-5.38) x10^3/uL Basophils # 0.03 (0.01-0.08) x10^3/uL ESR (0-15) mm/hr Sodium 139 (135-145) mmol/L Potassium 3.6 (3.5-5.1) mmol/L Chloride 97 L (98-107) mmol/L Carbon Dioxide 35 H (22-30) mmol/L Anion Gap 10.0 (5-15) MEQ/L BUN 6 L (9-20) mg/dL Creatinine 0.76 (0.66-1.25) mg/dL Estimated GFR 102.9 ML/MIN Glucose 242 H (74-106) mg/dL Lactic Acid 1.7 (0.4-2.0) Calcium 8.4 (8.4-10.2) mg/dL Iron (49-181) ug/dL TIBC (261-497) ug/dL Iron Saturation (20-39) % Ferritin (17.9-464) ng/mL Total Bilirubin 0.50 (0.2-1.3) mg/dL AST 16 L (17-59) U/L ALT 12 (0-50) U/L Alkaline Phosphatase 115 (38-126) U/L Serum Total Protein 6.9 (6.3-8.2) g/dL Albumin 3.3 L (3.5-5.0) g/dL Vitamin B12 (239-931) pg/mL Folic Acid (2.76 - >20) ng/mL Procalcitonin (0.030-0.080) ng/mL 06/12/24 06/12/24 06/12/24 Range/Units 14:22 14:22 14:22 WBC (4.23-9.07) x10^3/uL RBC (4.63-6.08) x10^6/uL Hgb (13.7-17.5) g/dL Hct (40.1-51.0) % MCV (79.0-92.2) fL MCH (25.7-32.2) pg MCHC (32.3-36.5) g/dL RDW (11.6-14.4) % Plt Count (163-337) x10^3/uL MPV (9.4-12.4) fL Gran % (34.0-67.9) % Immature Gran % (Auto) (0.001-0.429) % Nucleat RBC Rel Count (0.00-0.2) % Eos # (Auto) (0.04-0.54) x10^3/uL Immature Gran # (Auto) (0.001-0.031) x10^3u/L Absolute Lymphs (auto) (1.32-3.57) x10^3/uL Absolute Monos (auto) (0.30-0.82) x10^3/uL Absolute Nucleated RBC (0.00-0.012) x10^3u/L Lymphocytes % (21.8-53.1) % Monocytes % (5.3-12.2) % Eosinophils % (0.8-7.0) % Basophils % (0.2-1.2) % Absolute Granulocytes (1.78-5.38) x10^3/uL Basophils # (0.01-0.08) x10^3/uL ESR 87 H (0-15) mm/hr Sodium (135-145) mmol/L Potassium (3.5-5.1) mmol/L Chloride (98-107) mmol/L Carbon Dioxide (22-30) mmol/L Anion Gap (5-15) MEQ/L BUN (9-20) mg/dL Creatinine (0.66-1.25) mg/dL Estimated GFR ML/MIN Glucose (74-106) mg/dL Lactic Acid (0.4-2.0) Calcium (8.4-10.2) mg/dL Iron (49-181) ug/dL TIBC (261-497) ug/dL Iron Saturation (20-39) % Ferritin 55.9 (17.9-464) ng/mL Total Bilirubin (0.2-1.3) mg/dL AST (17-59) U/L ALT (0-50) U/L Alkaline Phosphatase (38-126) U/L Serum Total Protein (6.3-8.2) g/dL Albumin (3.5-5.0) g/dL Vitamin B12 266 (239-931) pg/mL Folic Acid 5.97 (2.76 - >20) ng/mL Procalcitonin 0.085 H (0.030-0.080) ng/mL 06/12/24 Range/Units 14:22 WBC (4.23-9.07) x10^3/uL RBC (4.63-6.08) x10^6/uL Hgb (13.7-17.5) g/dL Hct (40.1-51.0) % MCV (79.0-92.2) fL MCH (25.7-32.2) pg MCHC (32.3-36.5) g/dL RDW (11.6-14.4) % Plt Count (163-337) x10^3/uL MPV (9.4-12.4) fL Gran % (34.0-67.9) % Immature Gran % (Auto) (0.001-0.429) % Nucleat RBC Rel Count (0.00-0.2) % Eos # (Auto) (0.04-0.54) x10^3/uL Immature Gran # (Auto) (0.001-0.031) x10^3u/L Absolute Lymphs (auto) (1.32-3.57) x10^3/uL Absolute Monos (auto) (0.30-0.82) x10^3/uL Absolute Nucleated RBC (0.00-0.012) x10^3u/L Lymphocytes % (21.8-53.1) % Monocytes % (5.3-12.2) % Eosinophils % (0.8-7.0) % Basophils % (0.2-1.2) % Absolute Granulocytes (1.78-5.38) x10^3/uL Basophils # (0.01-0.08) x10^3/uL ESR (0-15) mm/hr Sodium (135-145) mmol/L Potassium (3.5-5.1) mmol/L Chloride (98-107) mmol/L Carbon Dioxide (22-30) mmol/L Anion Gap (5-15) MEQ/L BUN (9-20) mg/dL Creatinine (0.66-1.25) mg/dL Estimated GFR ML/MIN Glucose (74-106) mg/dL Lactic Acid (0.4-2.0) Calcium (8.4-10.2) mg/dL Iron 20 L (49-181) ug/dL TIBC 232 L (261-497) ug/dL Iron Saturation 9 L (20-39) % Ferritin (17.9-464) ng/mL Total Bilirubin (0.2-1.3) mg/dL AST (17-59) U/L ALT (0-50) U/L Alkaline Phosphatase (38-126) U/L Serum Total Protein (6.3-8.2) g/dL Albumin (3.5-5.0) g/dL Vitamin B12 (239-931) pg/mL Folic Acid (2.76 - >20) ng/mL Procalcitonin (0.030-0.080) ng/mL Accuchecks Date 06/12/24 - Radiology Impressions Radiology Exams & Impressions: Radiology Procedures Category Date Time Status ARTERIAL BILAT LOWER EXTREMITY [US] Urgent Exams 06/13/24 13:50 Ordered VENOUS BILATERAL EXTREMITY [US] Urgent Exams 06/12/24 13:50 Completed - Other Procedures and Tests Respiratory Therapy 06/12/24 14:56 Oxygen NASAL CANNULA 2 lpm Telemedicine Encounter - Telemedicine Encounter Telemedicine Encounter: "The entirety of this encounter was performed via Telemedicine" This visit was performed using real-time audio and video connection between my location and thepatients locationwith the assistance of a surrogateat the patients location. Written or verbal consent was obtained from the patient/guardian to perform this visit usingCool [employer]ncNVISION MEDICALtelemedicine technology. Any patient questions regarding the telemedicine interaction were answered. ELIZABETH Encounter - ELIZABETH Encounter Attestation ELIZABETH Encounter Attestation: "SURESH Smith andcarlosiscussed pertinent aspects of their care with Cynthia Valdez agree with the history, physical exam (any modifications based on my personal exam will be noted below), assessment, and plan as outlined in original note. Please see immediately below for my summary of findings and additional assessment and plan along with any meaningful corrections/explanations to the Subjective/Objective portions of the ELIZABETH note will be noted." My portion of the encounter took place via telemedicine. -Patient with chronic lower extremity venous insufficiency ulcers (right posterior thigh, right groin) and extensive intertrigo presents with worsening pain in his wounds. Surgery consulted but do not recommended surgical intervention. Patient follows with podiatry who we have also consulted. Will start antibiotics due to previous positive wound cultures and worsening pain. Topical nystatin for yeast infection. Oral diflucan would have been more effective but contraindicated due to major interaction with levaquin.
[2024-06-12] MEDS ORDERED: TYLENOL 325 MG PO PRN (12:35)
[2024-06-12] MEDS ORDERED: Sodium Chloride 0.9% 1000 ML 1,000 ML IV SCH (12:35)
[2024-06-12] MEDS ORDERED: Zofran 4 MG/2 ML VIAL IV PRN (12:35)
[2024-06-12] MEDS ORDERED: HUMULIN R SQ PRN (12:35)
[2024-06-12 15:15] LABS: Iron 20 ug/dL (49-181); Iron Saturation 9 % (20-39); TIBC 232 ug/dL (261-497)
[2024-06-12] MEDS: LEVOFLOXACIN 750MG/150ML D5W 750 MG/150 ML BAG IV SCH (16:51)
[2024-06-12] MEDS: HUMALOG SQ PRN (17:04)
[2024-06-12] MEDS: DEMADEX 20 MG PO SCH (17:22)
--- NOTE | 2024-06-12 17:26 | XRAY ---
Indication: Erythema, edema, and nonhealing wound. Two-dimensional sonogram and color Doppler imaging major venous vessels left lower leg performed. Comparison: June 02, 2022. Clinician Oncology notes limited exam due to patient body habitus and low pain tolerance. Patient refused imaging right groin area and therefore underlying common femoral vein was not evaluated. No thrombus seen in the remaining examined deep vessels left and right leg including greater saphenous vein. Patent veins demonstrate normal compressibility. Venous waveforms are normal with and without augmentation. Impression: Limited sonogram as detailed. Left and right legs again grossly negative for DVT.
[2024-06-12 17:37] LABS: Ferritin 55.9 ng/mL (17.9-464); Folate (Folic Acid) 5.97 ng/mL (2.76 - >20)
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
[2024-06-12] MEDS: Requip 0.5 MG PO SCH (21:18)
[2024-06-12] MEDS: Klor Con PO SCH (21:18)
[2024-06-12] MEDS: Pepcid 20 MG PO SCH (21:18)
[2024-06-12] MEDS: NYSTOP POWDER 15 GM TP SCH (21:18)
[2024-06-12] MEDS: Lopressor 25MG Tab PO SCH (21:18)
[2024-06-12] MEDS: XARELTO 10 MG TABLET PO SCH (21:18)
[2024-06-12] MEDS ORDERED: NON-FORMULARY ITEM (Rivaroxaban [Xarelto] 20 MG Tablet) PO SCH (22:00)
[2024-06-13 04:25] LABS: Absolute Neutrophil Ct (ANC) 4.06 x10^3/uL (1.78-5.38); BASOPHIL % 0.5 % (0.2-1.2); Basophil (Absolute #) 0.03 x10^3/uL (0.01-0.08); Eosinophil % 7.8 % (0.8-7.0); Eosinophil (Absolute #) 0.46 x10^3/uL (0.04-0.54); Hematocrit 28.8 % (40.1-51.0); Hemoglobin 8.5 g/dL (13.7-17.5); IMMATURE GRAN # 0.02 x10^3u/L (0.001-0.031); IMMATURE GRAN % 0.3 % (0.001-0.429); Lymphocyte (Absolute #) 0.67 x10^3/uL (1.32-3.57); Lymphocytes % 11.4 % (21.8-53.1); Mean Cell Volume 74.6 fL (79.0-92.2); Mean Corpuscular Hgb Concent. 29.5 g/dL (32.3-36.5); Mean Platelet Volume 9.4 fL (9.4-12.4); Monocyte (Absolute #) 0.63 x10^3/uL (0.30-0.82); Monocytes % 10.7 % (5.3-12.2); Neutrophil % 69.3 % (34.0-67.9); Platelet Count 273 x10^3/uL (163-337); Red Blood Count 3.86 x10^6/uL (4.63-6.08); Red Cell Distribution Width 15.1 % (11.6-14.4); White Blood Count 5.9 x10^3/uL (4.23-9.07)
[2024-06-13 04:43] LABS: ALBUMIN 2.8 g/dL (3.5-5.0); BILIRUBIN,TOTAL 0.5 mg/dL (0.2-1.3); Creatinine 1 0.74 mg/dL (0.66-1.25); EST GLOMERULAR FILTRATION RATE 103.7 ML/MIN; Potassium 3.5 mmol/L (3.5-5.1)
--- NOTE | 2024-06-13 05:18 | PCM.NOTE ---
Date and Time: 06/13/24 0517 Subjective Assessment: Mr. Hidalgo is a 59 year old male with a pmhx of peripheral neuropathy, AFIB(xarelto), DMII, and OA who presented to ED 06/12/24 with worsening gluteal and BLE wound. Patient states onset was approximately 2-3 weeks ago. He is currently being treated by podiatry Dr. Moreno with Edita christineot to the LLE and RLE . Reviewed recent cultures from 06/05/24 and 06/07/24 showing proteus mirabilis and pseudomonas aeruginosa to the right posterior leg and right groin. Additional culture to the right lower extremity showing serratia fonticola. Also reviewed previous cultures from 05/11/24 and 05/15/24 of the right upper leg and right calf which showed staph aureus- it appears from the external pharmacy that the patient was prescribed clindamycin (which caused a rash)and later doxycycline following these cultures. Patient with allergies to penicillins, clinamycin, and sulfa. Upon examination, patient is noted with areas of excoriation and yeast to his abdominal folds and groin. His BLE wrapped in compression dressings. Right posterior thigh with open wound/drainage. Right groin with open wound/drainage. Patient has out patient appt. with Dr. Carin Sparks to evaluate wounds to the thigh/groin. Patient is requiring 2L of oxygen - due to desatting in ED -RA at baseline, states that he is not short of breath. Denies fever,cough, sob, cp, abdominal pain, MCGUIRE, dizziness, N/V/D.Upon arrival to ED vitals are stable. Lab findings remarkable for microcytic, hypochromic anemia which appears chronic with lab review, hgb at 9.3 and hyperglycemia with glucose level at 242 -most recent A1c 05/31/24 at 7.48. Venous doppler negative. Arterial doppler pending. Extensive yeast dermatitis to abdominal/groin folds- unable to give diflucan due to interaction with levaquin. Nystatin powder added. 06/13/24: Met with patient bedside. Endorses poor appetite and energy level. States he is unable to care for himself at home - would like placement. Surgery has evaluated wounds to thigh/groin with recs for OP wound therapy - no surgical intervention needed at this time. - Review of Systems Constitutional: Weakness Eyes: No Symptoms Ears, Nose, & Throat: No Symptoms Respiratory: No Symptoms Cardiac: Edema (BLE 3+ pitting) Abdominal/Gastrointestinal: No Symptoms Genitourinary Symptoms: No Symptoms Musculoskeletal: No Symptoms Skin: Cellulitis, Induration, Skin Lesions Neurological: No Symptoms Psychological: No Symptoms Endocrine: No Symptoms Hematologic/Lymphatic: Anemia Immunological/Allergic: No Symptoms Objective Exam General Appearance: no apparent distress Neurologic Exam: alert, oriented x 3, cooperative Skin Exam: other (BLE erythema/edema 3+ pitting right posterior thigh wound with surrounding induration scrotal excoriation groin/abdominal fold excoriation with yeast ulceration left buttock skin ulceration) Wound Assessment: Skin/Wound Assessment Wound/Incision Assessment Start: 06/12/24 14:22 Text: Status: Active Freq: Q6H Protocol: Document 06/13/24 02:00 MM (Rec: 06/13/24 03:11 MM [id number]) Wound/Incision Assessment Right Posterior Thigh Wound Assessment Shift Assessment Wound Type VARICOSE VEIN Wound Stage Non Pressure Wound Dressing Status Changed Drainage Amount Moderate Drainage Description Serosanguineous Drainage Odor Foul Odor General Appearance Reddened,Draining Surrounding Tissue Dark Red,Purple Topical Solution/Irrigant Saline Irrigant Primary Dressing BORDERED GAUZE Other Wound Assessment Shift Assessment Wound Type Maceration Wound Stage Non Pressure Wound Drainage Amount None Drainage Description Serosanguineous Drainage Odor Foul Odor General Appearance Open to air Wound Bed Greatest Portion Red (Granulation) Wound Bed Lesser Portion Red (Granulation) Surrounding Tissue Bright Red,Macerated Comment drainage noted coming from pt upper thighs/groin area, pads changed on bed each time pt gets up to the bathroom. Wound Photo Photo Taken No Comment: photos previously placed in chart from admission Eye Exam: PERRL Ears, Nose, Throat Exam: normal ENT inspection Neck Exam: normal inspection Respiratory Exam: normal breath sounds, lungs clear Cardiovascular Exam: regular rate/rhythm, normal heart sounds Gastrointestinal/Abdomen Exam: soft, normal bowel sounds Extremity Exam: inflammation (BLE) Back Exam: normal inspection Male Genitalia Exam: other (Scrotal erythma) Rectal Exam: deferred Objective Data Vital Signs: Vital Signs - 24 hr Temp Pulse Resp BP BP Pulse Ox 06/13/24 04:00 98.2 F 69 16 158/71 97 06/12/24 23:11 98.5 F 73 16 132/62 94 L 06/12/24 19:19 97.5 F 70 16 135/63 97 06/12/24 18:12 96 06/12/24 16:32 97.8 F 70 18 139/66 95 06/12/24 14:57 98 06/12/24 12:53 98.1 F 76 20 150/68 97 06/12/24 12:32 98.1 F 76 20 150/68 97 06/12/24 11:30 69 20 105/59 93 L 06/12/24 11:00 72 18 125/61 90 L 06/12/24 10:30 70 18 114/62 88 L 06/12/24 10:12 72 18 124/62 96 06/12/24 10:07 116/69 92 L 06/12/24 08:37 98.4 F 91 H 18 145/72 96 Pain Assessment - Last Documented Pain Intensity 5 Pain Scale Used 0-10 Pain Scale Intake and Output: Intake & Output 06/10/24 06/11/24 06/12/24 06/13/24 11:59 11:59 11:59 11:59 Intake Total 360 Balance 360 Weight 126.552 kg 119.5 kg Lab Results: Lab Results-Last 24 Hours 06/12/24 06/12/24 06/12/24 Range/Units 09:20 09:26 09:40 WBC 5.8 (4.23-9.07) x10^3/uL RBC 4.19 L (4.63-6.08) x10^6/uL Hgb 9.3 L (13.7-17.5) g/dL Hct 30.9 L (40.1-51.0) % MCV 73.7 L (79.0-92.2) fL MCH 22.2 L (25.7-32.2) pg MCHC 30.1 L (32.3-36.5) g/dL RDW 15.4 H (11.6-14.4) % Plt Count 342 H (163-337) x10^3/uL MPV 9.6 (9.4-12.4) fL Gran % 71.5 H (34.0-67.9) % Immature Gran % (Auto) 0.3 (0.001-0.429) % Nucleat RBC Rel Count 0.0 (0.00-0.2) % Eos # (Auto) 0.46 (0.04-0.54) x10^3/uL Immature Gran # (Auto) 0.02 (0.001-0.031) x10^3u/L Absolute Lymphs (auto) 0.63 L (1.32-3.57) x10^3/uL Absolute Monos (auto) 0.51 (0.30-0.82) x10^3/uL Absolute Nucleated RBC 0.00 (0.00-0.012) x10^3u/L Lymphocytes % 10.9 L (21.8-53.1) % Monocytes % 8.8 (5.3-12.2) % Eosinophils % 8.0 H (0.8-7.0) % Basophils % 0.5 (0.2-1.2) % Absolute Granulocytes 4.12 (1.78-5.38) x10^3/uL Basophils # 0.03 (0.01-0.08) x10^3/uL ESR (0-15) mm/hr Sodium 139 (135-145) mmol/L Potassium 3.6 (3.5-5.1) mmol/L Chloride 97 L (98-107) mmol/L Carbon Dioxide 35 H (22-30) mmol/L Anion Gap 10.0 (5-15) MEQ/L BUN 6 L (9-20) mg/dL Creatinine 0.76 (0.66-1.25) mg/dL Estimated GFR 102.9 ML/MIN Glucose 242 H (74-106) mg/dL Lactic Acid 1.7 (0.4-2.0) Calcium 8.4 (8.4-10.2) mg/dL Iron (49-181) ug/dL TIBC (261-497) ug/dL Iron Saturation (20-39) % Ferritin (17.9-464) ng/mL Total Bilirubin 0.50 (0.2-1.3) mg/dL AST 16 L (17-59) U/L ALT 12 (0-50) U/L Alkaline Phosphatase 115 (38-126) U/L Serum Total Protein 6.9 (6.3-8.2) g/dL Albumin 3.3 L (3.5-5.0) g/dL Vitamin B12 (239-931) pg/mL Folic Acid (2.76 - >20) ng/mL Procalcitonin (0.030-0.080) ng/mL 06/12/24 06/12/24 06/12/24 Range/Units 14:22 14:22 14:22 WBC (4.23-9.07) x10^3/uL RBC (4.63-6.08) x10^6/uL Hgb (13.7-17.5) g/dL Hct (40.1-51.0) % MCV (79.0-92.2) fL MCH (25.7-32.2) pg MCHC (32.3-36.5) g/dL RDW (11.6-14.4) % Plt Count (163-337) x10^3/uL MPV (9.4-12.4) fL Gran % (34.0-67.9) % Immature Gran % (Auto) (0.001-0.429) % Nucleat RBC Rel Count (0.00-0.2) % Eos # (Auto) (0.04-0.54) x10^3/uL Immature Gran # (Auto) (0.001-0.031) x10^3u/L Absolute Lymphs (auto) (1.32-3.57) x10^3/uL Absolute Monos (auto) (0.30-0.82) x10^3/uL Absolute Nucleated RBC (0.00-0.012) x10^3u/L Lymphocytes % (21.8-53.1) % Monocytes % (5.3-12.2) % Eosinophils % (0.8-7.0) % Basophils % (0.2-1.2) % Absolute Granulocytes (1.78-5.38) x10^3/uL Basophils # (0.01-0.08) x10^3/uL ESR 87 H (0-15) mm/hr Sodium (135-145) mmol/L Potassium (3.5-5.1) mmol/L Chloride (98-107) mmol/L Carbon Dioxide (22-30) mmol/L Anion Gap (5-15) MEQ/L BUN (9-20) mg/dL Creatinine (0.66-1.25) mg/dL Estimated GFR ML/MIN Glucose (74-106) mg/dL Lactic Acid (0.4-2.0) Calcium (8.4-10.2) mg/dL Iron (49-181) ug/dL TIBC (261-497) ug/dL Iron Saturation (20-39) % Ferritin 55.9 (17.9-464) ng/mL Total Bilirubin (0.2-1.3) mg/dL AST (17-59) U/L ALT (0-50) U/L Alkaline Phosphatase (38-126) U/L Serum Total Protein (6.3-8.2) g/dL Albumin (3.5-5.0) g/dL Vitamin B12 266 (239-931) pg/mL Folic Acid 5.97 (2.76 - >20) ng/mL Procalcitonin 0.085 H (0.030-0.080) ng/mL 06/12/24 06/13/24 06/13/24 Range/Units 14:22 04:10 04:10 WBC 5.9 (4.23-9.07) x10^3/uL RBC 3.86 L (4.63-6.08) x10^6/uL Hgb 8.5 L (13.7-17.5) g/dL Hct 28.8 L (40.1-51.0) % MCV 74.6 L (79.0-92.2) fL MCH 22.0 L (25.7-32.2) pg MCHC 29.5 L (32.3-36.5) g/dL RDW 15.1 H (11.6-14.4) % Plt Count 273 (163-337) x10^3/uL MPV 9.4 (9.4-12.4) fL Gran % 69.3 H (34.0-67.9) % Immature Gran % (Auto) 0.3 (0.001-0.429) % Nucleat RBC Rel Count 0.0 (0.00-0.2) % Eos # (Auto) 0.46 (0.04-0.54) x10^3/uL Immature Gran # (Auto) 0.02 (0.001-0.031) x10^3u/L Absolute Lymphs (auto) 0.67 L (1.32-3.57) x10^3/uL Absolute Monos (auto) 0.63 (0.30-0.82) x10^3/uL Absolute Nucleated RBC 0.00 (0.00-0.012) x10^3u/L Lymphocytes % 11.4 L (21.8-53.1) % Monocytes % 10.7 (5.3-12.2) % Eosinophils % 7.8 H (0.8-7.0) % Basophils % 0.5 (0.2-1.2) % Absolute Granulocytes 4.06 (1.78-5.38) x10^3/uL Basophils # 0.03 (0.01-0.08) x10^3/uL ESR (0-15) mm/hr Sodium 139 (135-145) mmol/L Potassium 3.5 (3.5-5.1) mmol/L Chloride 99 (98-107) mmol/L Carbon Dioxide 35 H (22-30) mmol/L Anion Gap 8.0 (5-15) MEQ/L BUN 8 L (9-20) mg/dL Creatinine 0.74 (0.66-1.25) mg/dL Estimated GFR 103.7 ML/MIN Glucose 189 H (74-106) mg/dL Lactic Acid (0.4-2.0) Calcium 8.0 L (8.4-10.2) mg/dL Iron 20 L (49-181) ug/dL TIBC 232 L (261-497) ug/dL Iron Saturation 9 L (20-39) % Ferritin (17.9-464) ng/mL Total Bilirubin 0.50 (0.2-1.3) mg/dL AST 13 L (17-59) U/L ALT 8 (0-50) U/L Alkaline Phosphatase 96 (38-126) U/L Serum Total Protein 6.0 L (6.3-8.2) g/dL Albumin 2.8 L (3.5-5.0) g/dL Vitamin B12 (239-931) pg/mL Folic Acid (2.76 - >20) ng/mL Procalcitonin (0.030-0.080) ng/mL Radiology Exams: Radiology Procedures Category Date Time Status ARTERIAL BILAT LOWER EXTREMITY [US] Urgent Exams 06/13/24 13:50 Ordered VENOUS BILATERAL EXTREMITY [US] Urgent Exams 06/12/24 13:50 Completed Assessment/Plan (1) Cellulitis Current Visit: No Status: Acute Assessment & Plan: -Predisposing factor of chronic venous insuffiency -Reviewed recent cultures from 06/05/24 and 06/07/24 showing proteus mirabilis and pseudomonas aeruginosa to the right posterior leg and right groin. Additional culture to the right lower extremity showing serratia fonticola -previous cultures from 05/11/24 and 05/15/24 of the right upper leg and right calf which showed staph aureus- it appears from the external pharmacy that the patient was prescribed clindamycin (which caused a rash)and later doxycycline following these cultures -Will start on levaquin based on previous cultures -PCT, ESR, CRP -Culture open wound with drainage -john borders -elevated affected limbs -Doppler BLE/ venous/arterial -Consider MRI/CT -Podiatry consult -wound therapy eval -Patient unable to care for himself at home, CM to look into placement -pt/ot 06/13: -Venous doppler negative for DVT -Art doppler pending -Continue levaquin -Podiatry consulted, pending eval -Recommend wound care and ID as OP for non-healing wound - patient requesting SNF placement as he is unable to care for himself at home Code(s): L03.90 - CELLULITIS, UNSPECIFIED (2) Ulcer of extremity due to chronic venous insufficiency Current Visit: Yes Status: Acute Assessment & Plan: -see cellulitis Code(s): L98.499 - NON-PRESSURE CHRONIC ULCER OF SKIN OF SITES W UNSP SEVERITY; I87.2 - VENOUS INSUFFICIENCY (CHRONIC) (PERIPHERAL) (3) History of atrial fibrillation Current Visit: Yes Status: Acute Assessment & Plan: -H/O on Xarelto -Tele Code(s): Z86.79 - PERSONAL HISTORY OF OTHER DISEASES OF THE CIRCULATORY SYSTEM (4) HTN (hypertension) Current Visit: Yes Status: Acute Assessment & Plan: -Stable, continue home meds, adjust as appropriate Code(s): I10 - ESSENTIAL (PRIMARY) HYPERTENSION (5) HLD (hyperlipidemia) Current Visit: Yes Status: Acute Assessment & Plan: -not on home meds, will check lipid, may add statin pending results Code(s): E78.5 - HYPERLIPIDEMIA, UNSPECIFIED (6) Anemia Current Visit: Yes Status: Acute Assessment & Plan: -appears chronic -iron profile - showing 9% iron sat - will start on ferrous sulfate - recommend heme referral as OP for iron deficiency workup -Monitor cbc daily Code(s): D64.9 - ANEMIA, UNSPECIFIED (7) Type 2 diabetes mellitus Current Visit: Yes Status: Acute Assessment & Plan: -SSI/glargine -ADA diet -A1c from 05/31/24 at 7.48 (8) Yeast dermatitis Current Visit: Yes Status: Acute Assessment & Plan: -noted on abdominal folds and groin -Nystatin powder -Diflucan contraindicated w/levaquin VTE: Xarelto PPI: protonix Dispo: 1-3 days Code(s): L03.90 - CELLULITIS, UNSPECIFIED (2) Ulcer of extremity due to chronic venous insufficiency Current Visit: Yes Status: Acute Code(s): L98.499 - NON-PRESSURE CHRONIC ULCER OF SKIN OF SITES W UNSP SEVERITY; I87.2 - VENOUS INSUFFICIENCY (CHRONIC) (PERIPHERAL) (3) History of atrial fibrillation Current Visit: Yes Status: Acute Code(s): Z86.79 - PERSONAL HISTORY OF OTHER DISEASES OF THE CIRCULATORY SYSTEM (4) HTN (hypertension) Current Visit: Yes Status: Acute Code(s): I10 - ESSENTIAL (PRIMARY) HYPERTENSION (5) HLD (hyperlipidemia) Current Visit: Yes Status: Acute Code(s): E78.5 - HYPERLIPIDEMIA, UNSPECIFIED (6) Anemia Current Visit: Yes Status: Acute Code(s): D64.9 - ANEMIA, UNSPECIFIED (7) Type 2 diabetes mellitus Current Visit: Yes Status: Acute (8) Yeast dermatitis Current Visit: Yes Status: Acute Code(s): B37.2 - CANDIDIASIS OF SKIN AND NAIL
[2024-06-13] MEDS: Lantus Insulin SQ SCH (08:14)
[2024-06-13] MEDS: HUMALOG SQ SCH (08:15)
[2024-06-13] MEDS: FEOSOL 325 MG PO SCH (09:39)
[2024-06-13] MEDS: ZOCOR 20MG PO SCH (09:40)
[2024-06-13] MEDS ORDERED: NON-FORMULARY ITEM (Atorvastatin Calcium [Atorvastatin Calcium] 20 MG Tablet) PO SCH (10:00)
--- NOTE | 2024-06-13 11:29 | XRAY ---
Indication: Erythema, edema, nonhealing wound. Dimension sonogram and color Doppler imaging major arteries left and right leg performed. Comparison: None Assistant Shift Supervisor notes limited exam due to patient body habitus and low pain tolerance. Patient refused imaging right coronary and therefore underlying common femoral and deep femoral arteries not evaluated. Examination right leg demonstrates widely patent superficial femoral, popliteal, posterior tibial, dorsal pedal arteries. Arterial waveforms demonstrates normal multiphasic appearance throughout visualized right leg. Examination left leg demonstrates widely patent common femoral, deep femoral, superficial femoral, and posterior tibial arteries. Scattered arteriosclerotic disease in the remaining popliteal and dorsal pedal arteries without critical stenosis/obstruction. Arterial waveforms demonstrate normal multiphasic appearance throughout left leg. Impression: 1. Limited sonogram as detailed. 2. Arteriosclerotic disease in right popliteal and right dorsal pedal arteries. 2. Remaining left and right leg arterial sonogram negative for critical stenosis/obstruction.
--- NOTE | 2024-06-13 16:44 | PCM.CONS ---
Podiatry HPI - Consult Consulting Provider: IMTIAZ LOMBARDO DPM - HPI History of Present Illness: Mr. Hidalgo is a 59 year old male with a pmhx of peripheral neuropathy, AFIB(xarelto), DMII, and OA who presented to ED 06/12/24 with worsening gluteal and BLE wound. Patient states onset was approximately 2-3 weeks ago. He is currently being treated by podiatry Dr. Moreno with Stephaniea boot to the LLE and RLE. Reviewed recent cultures from 06/05/24 and 06/07/24 showing proteus mirabilis and pseudomonas aeruginosa to the right posterior leg and right groin. Additional culture to the right lower extremity showing serratia fonticola. Also reviewed previous cultures from 05/11/24 and 05/15/24 of the right upper leg and right calf which showed staph aureus- it appears from the external pharmacy that the patient was prescribed clindamycin (which caused a rash)and later doxycyclin e following these cultures. Patient with allergies to penicillins, clinamycin, and sulfa. Upon examination, patient is noted with areas of excoriation and yeast to his abdominal folds and groin. His BLE wrapped in compression dressings. Right posterior thigh with open wound/drainage. Right groin with open wound/drainage. Patient has out patient appt. with Dr. Carin Sparks to evaluate wounds to the thigh/groin. Patient is requiring 2L of oxygen - due to desatting in ED -RA at baseline, states that he is not short of breath. Denies fever,cough, sob, cp, abdominal pain, MCGUIRE, dizziness, N/V/D.Upon arrival to ED vitals are stable. Lab findings remarkable for microcytic, hypochromic anemia which appears chronic with lab review, hgb at 9.3 and hyperglycemia with glucose level at 242 -most recent A1c 05/31/24 at 7.48. Venous doppler negative. Arterial doppler pending. Extensive yeast dermatitis to abdominal/groin folds- unable to give diflucan due to interaction with levaquin. Nystatin powder added. Medications & Allergies Home Medications: Home Medication List Ergocalciferol (Vitamin D2) [Vitamin D2] 1,250 mcg PO WEEKLY 02/05/23 [History Confirmed 06/12/24] Insulin Lispro [Insulin Lispro Kwikpen U-100] 30 unit SQ BID 02/05/23 [History Confirmed 06/12/24] Metoprolol Tartrate 25 mg [Lopressor 25MG Tab] 25 mg PO BID 02/05/23 [History Confirmed 06/12/24] Insulin Glargine [Lantus Insulin] 60 unit SQ BREAKFAST 10/18/23 [History Confirmed 06/12/24] Torsemide 20 mg [Demadex 20 mg] 20 mg PO BID 10/18/23 [History Confirmed 06/12/24] Potassium Chloride 10 meq PO BID 02/03/24 [History Confirmed 06/12/24] Atorvastatin Calcium 10 mg PO HS 06/12/24 [History Confirmed 06/12/24] Atorvastatin Calcium 20 mg PO DAILY 06/12/24 [History Confirmed 06/12/24] Famotidine 20 mg PO HS 06/12/24 [History Confirmed 06/12/24] Rivaroxaban [Xarelto] 20 mg PO HS 06/12/24 [History Confirmed 06/12/24] Ropinirole HCl 0.5 mg [Requip 0.5 MG] 0.5 mg PO HS 06/12/24 [History Confirmed 06/12/24] Allergies/Adverse Reactions: Allergies Allergy/AdvReac Type Severity Reaction Status Date / Time clindamycin Allergy Verified 06/12/24 08:36 Penicillins Allergy Verified 06/12/24 08:36 Sulfa (Sulfonamide Allergy Verified 06/12/24 08:36 Antibiotics) - Past Medical History Past Medical History: Yes Neurological History: Peripheral Neuropathy ENT History: No Pertinent History Cardiac History: Angina, Arrhythmia Respiratory History: No Pertinent History Endocrine Medical History: Diabetes Type II Musculoskelatal History: Osteoarthritis GI Medical History: No Pertinent History History: No Pertinent History Pyscho-Social History: No Pertinent History Male Reproductive Disorders: No Pertinent History Comment: HISTORY OF B LE WOUNDS, PARTIAL SEPTUS INVERTUS, RUPTURED L ROTATOR CUFF. - Past Surgical History Past Surgical History: Yes Neuro Surgical History: No Pertinent History Cardiac History: No Pertinent History Respiratory Surgery: No Pertinent History GI Surgical History: No Pertinent History Genitourinary Surgical Hx: No Pertinent History Musculskeletal Surgical Hx: No Pertinent History Male Surgical History: No Pertinent History Other Surgical History: PINWHEEL DRAIN IN BACK TO DRAIN FLUIDS_DONE BY Gucic SPARKS 2021 - Social History Smoking Status: Never smoker Exposure to second hand smoke: No Alcohol: None Drug Use: none - Social Determinants of Health Will the patient participate in the screening: Yes Do you worry about a steady place to live?: Yes Do you have any problems with any of the following?: No known problems In the past 12 months,have you had to go without utilities?: No Have you or anyone in your house had to go without enough: Yes Transportation Issues: No Has anyone in your support network made you feel unsafe?: No Does the patient want assistance with any of the above?: No Physical Exam - Narrative Narrative Physical Exam: Podiatry Physical Exam Results - Labs Lab/Micro Results: Lab Results-Last 24 Hours 06/12/24 06/12/24 06/13/24 Range/Units 14:22 14:22 04:10 WBC 5.9 (4.23-9.07) x10^3/uL RBC 3.86 L (4.63-6.08) x10^6/uL Hgb 8.5 L (13.7-17.5) g/dL Hct 28.8 L (40.1-51.0) % MCV 74.6 L (79.0-92.2) fL MCH 22.0 L (25.7-32.2) pg MCHC 29.5 L (32.3-36.5) g/dL RDW 15.1 H (11.6-14.4) % Plt Count 273 (163-337) x10^3/uL MPV 9.4 (9.4-12.4) fL Gran % 69.3 H (34.0-67.9) % Immature Gran % (Auto) 0.3 (0.001-0.429) % Nucleat RBC Rel Count 0.0 (0.00-0.2) % Eos # (Auto) 0.46 (0.04-0.54) x10^3/uL Immature Gran # (Auto) 0.02 (0.001-0.031) x10^3u/L Absolute Lymphs (auto) 0.67 L (1.32-3.57) x10^3/uL Absolute Monos (auto) 0.63 (0.30-0.82) x10^3/uL Absolute Nucleated RBC 0.00 (0.00-0.012) x10^3u/L Lymphocytes % 11.4 L (21.8-53.1) % Monocytes % 10.7 (5.3-12.2) % Eosinophils % 7.8 H (0.8-7.0) % Basophils % 0.5 (0.2-1.2) % Absolute Granulocytes 4.06 (1.78-5.38) x10^3/uL Basophils # 0.03 (0.01-0.08) x10^3/uL Sodium (135-145) mmol/L Potassium (3.5-5.1) mmol/L Chloride (98-107) mmol/L Carbon Dioxide (22-30) mmol/L Anion Gap (5-15) MEQ/L BUN (9-20) mg/dL Creatinine (0.66-1.25) mg/dL Estimated GFR ML/MIN Glucose (74-106) mg/dL Calcium (8.4-10.2) mg/dL Ferritin 55.9 (17.9-464) ng/mL Total Bilirubin (0.2-1.3) mg/dL AST (17-59) U/L ALT (0-50) U/L Alkaline Phosphatase (38-126) U/L C-Reactive Prot, Quant 97 H (0-10) mg/L Serum Total Protein (6.3-8.2) g/dL Albumin (3.5-5.0) g/dL Vitamin B12 266 (239-931) pg/mL Folic Acid 5.97 (2.76 - >20) ng/mL 06/13/24 Range/Units 04:10 WBC (4.23-9.07) x10^3/uL RBC (4.63-6.08) x10^6/uL Hgb (13.7-17.5) g/dL Hct (40.1-51.0) % MCV (79.0-92.2) fL MCH (25.7-32.2) pg MCHC (32.3-36.5) g/dL RDW (11.6-14.4) % Plt Count (163-337) x10^3/uL MPV (9.4-12.4) fL Gran % (34.0-67.9) % Immature Gran % (Auto) (0.001-0.429) % Nucleat RBC Rel Count (0.00-0.2) % Eos # (Auto) (0.04-0.54) x10^3/uL Immature Gran # (Auto) (0.001-0.031) x10^3u/L Absolute Lymphs (auto) (1.32-3.57) x10^3/uL Absolute Monos (auto) (0.30-0.82) x10^3/uL Absolute Nucleated RBC (0.00-0.012) x10^3u/L Lymphocytes % (21.8-53.1) % Monocytes % (5.3-12.2) % Eosinophils % (0.8-7.0) % Basophils % (0.2-1.2) % Absolute Granulocytes (1.78-5.38) x10^3/uL Basophils # (0.01-0.08) x10^3/uL Sodium 139 (135-145) mmol/L Potassium 3.5 (3.5-5.1) mmol/L Chloride 99 (98-107) mmol/L Carbon Dioxide 35 H (22-30) mmol/L Anion Gap 8.0 (5-15) MEQ/L BUN 8 L (9-20) mg/dL Creatinine 0.74 (0.66-1.25) mg/dL Estimated GFR 103.7 ML/MIN Glucose 189 H (74-106) mg/dL Calcium 8.0 L (8.4-10.2) mg/dL Ferritin (17.9-464) ng/mL Total Bilirubin 0.50 (0.2-1.3) mg/dL AST 13 L (17-59) U/L ALT 8 (0-50) U/L Alkaline Phosphatase 96 (38-126) U/L C-Reactive Prot, Quant (0-10) mg/L Serum Total Protein 6.0 L (6.3-8.2) g/dL Albumin 2.8 L (3.5-5.0) g/dL Vitamin B12 (239-931) pg/mL Folic Acid (2.76 - >20) ng/mL Microbiology 06/12/24 09:37 Blood Culture - Preliminary Blood 06/12/24 09:33 Blood Culture - Preliminary Blood Accuchecks Date 06/13/24 Date 06/13/24 Date 06/12/24 Time 11:19 Time 07:54 - Radiology Impressions Radiology Exams & Impressions: Radiology Procedures Category Date Time Status ARTERIAL BILAT LOWER EXTREMITY [US] Urgent Exams 06/13/24 10:00 Completed VENOUS BILATERAL EXTREMITY [US] Urgent Exams 06/12/24 13:50 Completed Assessment/Plan (1) Uncontrolled diabetes mellitus Current Visit: No Status: Chronic Qualifiers: Diabetes mellitus type: type 2 Glycemic state: with hyperglycemia Qualified Code(s): E11.65 - Type 2 diabetes mellitus with hyperglycemia Code(s): GKG9682 - (2) Multiple wounds of skin Current Visit: No Status: Chronic Code(s): T14.8XXA - OTHER INJURY OF UNSPECIFIED BODY REGION, INITIAL ENCOUNTER (3) Ulcer of extremity due to chronic venous insufficiency Current Visit: No Status: Chronic Assessment & Plan: Patient examination and evaluation. Unna boot applied to the bilateral lower extremity venous dopplers negative for DVT. Patients diabetes is being managed by their PCP - Last a1c 7.48 on 05/31/2024 Here today wishing to proceed with admission to [facility] Code(s): L98.499 - NON-PRESSURE CHRONIC ULCER OF SKIN OF SITES W UNSP SEVERITY; I87.2 - VENOUS INSUFFICIENCY (CHRONIC) (PERIPHERAL) (4) Peripheral neuropathy Current Visit: No Status: Chronic Code(s): G62.9 - POLYNEUROPATHY, UNSPECIFIED (5) Poor social situation Current Visit: No Status: Acute Code(s): Z65.9 - PROBLEM RELATED TO UNSPECIFIED PSYCHOSOCIAL CIRCUMSTANCES (6) Cellulitis Current Visit: No Status: Acute Code(s): L03.90 - CELLULITIS, UNSPECIFIED (7) Ulcer of extremity due to chronic venous insufficiency Current Visit: Yes Status: Acute Code(s): L98.499 - NON-PRESSURE CHRONIC ULCER OF SKIN OF SITES W UNSP SEVERITY; I87.2 - VENOUS INSUFFICIENCY (CHRONIC) (PERIPHERAL) (8) Type 2 diabetes mellitus Current Visit: Yes Status: Acute (9) Yeast dermatitis Current Visit: Yes Status: Acute Code(s): B37.2 - CANDIDIASIS OF SKIN AND NAIL
--- NOTE | 2024-06-14 05:09 | PCM.NOTE ---
Date and Time: 06/14/24 0509 Subjective Assessment: Mr. Hidalgo is a 59 year old male with a pmhx of peripheral neuropathy, AFIB(xarelto), DMII, and OA who presented to ED 06/12/24 with worsening gluteal and BLE wound. Patient states onset was approximately 2-3 weeks ago. He is currently being treated by podiatry Dr. Moreno with Edita christineot to the LLE and RLE . Reviewed recent cultures from 06/05/24 and 06/07/24 showing proteus mirabilis and pseudomonas aeruginosa to the right posterior leg and right groin. Additional culture to the right lower extremity showing serratia fonticola. Also reviewed previous cultures from 05/11/24 and 05/15/24 of the right upper leg and right calf which showed staph aureus- it appears from the external pharmacy that the patient was prescribed clindamycin (which caused a rash)and later doxycycline following these cultures. Patient with allergies to penicillins, clinamycin, and sulfa. Upon examination, patient is noted with areas of excoriation and yeast to his abdominal folds and groin. His BLE wrapped in compression dressings. Right posterior thigh with open wound/drainage. Right groin with open wound/drainage. Patient has out patient appt. with Dr. Carin Sparks to evaluate wounds to the thigh/groin. Patient is requiring 2L of oxygen - due to desatting in ED -RA at baseline, states that he is not short of breath. Denies fever,cough, sob, cp, abdominal pain, MCGUIRE, dizziness, N/V/D.Upon arrival to ED vitals are stable. Lab findings remarkable for microcytic, hypochromic anemia which appears chronic with lab review, hgb at 9.3 and hyperglycemia with glucose level at 242 -most recent A1c 05/31/24 at 7.48. Venous doppler negative. Arterial doppler pending. Extensive yeast dermatitis to abdominal/groin folds- unable to give diflucan due to interaction with levaquin. Nystatin powder added. 06/13/24: Met with patient bedside. Endorses poor appetite and energy level. States he is unable to care for himself at home - would like placement. Surgery has evaluated wounds to thigh/groin with recs for OP wound therapy - no surgical intervention needed at this time. 06/14: Met with patient bedside. Nausea this morning - no vomiting. SNF placement pending. Continue current wound/abx therapy. Denies fever,cough, sob, cp, abdominal pain, MCGUIRE, or dizziness. - Review of Systems Constitutional: No Symptoms Eyes: No Symptoms Ears, Nose, & Throat: No Symptoms Respiratory: No Symptoms Cardiac: No Symptoms Abdominal/Gastrointestinal: Nausea Genitourinary Symptoms: No Symptoms Musculoskeletal: No Symptoms Skin: Cellulitis, Skin Lesions (multiple - see wound assessment) Neurological: No Symptoms Psychological: No Symptoms Endocrine: No Symptoms Objective Exam General Appearance: no apparent distress Neurologic Exam: alert, oriented x 3, cooperative Skin Exam: other (BLE erythema/edema 3+ pitting right posterior thigh wound with surrounding induration scrotal excoriation groin/abdominal fold excoriation with yeast ulceration left buttock skin ulceration) Wound Assessment: Skin/Wound Assessment Wound/Incision Assessment Start: 06/12/24 14:22 Text: Status: Active Freq: Q6H Protocol: Document 06/14/24 02:00 KD (Rec: 06/14/24 04:11 [id number]) Wound/Incision Assessment Anterior/Posterior Abdomen Wound Assessment Shift Assessment Wound Type excoriation/maceration Wound Stage Non Pressure Wound General Appearance Open to air Wound Bed Greatest Portion Red (Granulation) Surrounding Tissue [place] Comment bilateral breast folds around to the back - excoriation/ maceration; nystatin powder applied but would not let nurse rub it in, pt educated & continued to refuse Right Medial Back Wound Assessment Shift Assessment Wound Type excoriation/maceration Wound Stage Non Pressure Wound Drainage Amount Minimal Drainage Description Sanguineous General Appearance Open to air,Draining Wound Bed Greatest Portion Red (Granulation) Surrounding Tissue [place] Comment wound to back/side abdominal fold that is a continuation from breast fold, minimal drainage, excoriation/ maceration-nystatin powder applied but pt would not let nurse rub it in-pt educated but continued to refuse Right Posterior Thigh Wound Assessment Shift Assessment Wound Type varicose vein Wound Stage Non Pressure Wound Dressing Status Changed Drainage Amount Minimal Drainage Description Serosanguineous General Appearance Reddened,Draining Surrounding Tissue Dark Red,Purple Comment purplish/reddish wound, mild drainage, HUEY, previously assessed by surgery-no interventions at this time Other Wound Assessment Shift Assessment Wound Type Maceration Wound Stage Non Pressure Wound Drainage Amount Minimal Drainage Description Serosanguineous General Appearance Open to air,Draining Wound Bed Greatest Portion Red (Granulation) Wound Bed Lesser Portion Red (Granulation) Surrounding Tissue Bright Red,Macerated Comment upper thighs/groin area- reddened/excoriated/macerated, pt only allows nurse to pull cover/gown back but refuses to have nurse physically lift abd fold and scrotom to fully assess wound, pt educated on need to fully assess and continues to refuse; nystatin powder applied to groin area- pt would not let nurse apply to abd fold or lift scrotum to apply better, only allowed nurse to shake nystatin powder over groin area, pt educated on need to apply to abd folds & need to lift scrotum to apply & continued to refuse Wound Photo Photo Taken No Eye Exam: PERRL Ears, Nose, Throat Exam: normal ENT inspection Neck Exam: normal inspection Respiratory Exam: normal breath sounds, lungs clear Cardiovascular Exam: regular rate/rhythm, normal heart sounds Gastrointestinal/Abdomen Exam: soft, normal bowel sounds Extremity Exam: inflammation Back Exam: normal inspection Male Genitalia Exam: other (scrotal edema/induration - see skin assessment) Rectal Exam: deferred Objective Data Vital Signs: Vital Signs - 24 hr Temp Pulse Resp BP Pulse Ox 06/13/24 23:59 98.5 F 75 17 110/56 96 06/13/24 22:17 92 L 06/13/24 20:00 98.9 F 68 18 139/65 96 06/13/24 16:00 97.7 F 70 16 108/64 94 L 06/13/24 11:19 97.6 F 67 16 123/58 87 L 06/13/24 07:35 95 06/13/24 07:13 98.1 F 81 16 125/69 94 L Pain Assessment - Last Documented Pain Intensity 1 Pain Scale Used 0-10 Pain Scale Intake and Output: Intake & Output 06/11/24 06/12/24 06/13/24 06/14/24 11:59 11:59 11:59 11:59 Intake Total 2003 180 Balance 2003 180 Weight 126.552 kg 119.2 kg Lab Results: Lab Results-Last 24 Hours 06/12/24 Range/Units 14:22 C-Reactive Prot, Quant 97 H (0-10) mg/L Radiology Exams: Radiology Procedures Category Date Time Status ARTERIAL BILAT LOWER EXTREMITY [US] Urgent Exams 06/13/24 10:00 Completed VENOUS BILATERAL EXTREMITY [US] Urgent Exams 06/12/24 13:50 Completed Multi-Disciplinary Progress Notes: Multi-Disciplinary Progress Notes 06/13/24 15:37 Case Management Note by Jud Kurtz PASRR AND LEVEL OF CARE SUBMITTED AT THIS TIME Initialized on 06/13/24 15:37 - END OF NOTE 06/13/24 14:31 Case Management Note by Jud Kurtz REFERRAL WAS FAED TO [facility] PER PATIENT REQUEST. THEY HAVE ACCEPTED PENDING PRECERT. Initialized on 06/13/24 14:31 - END OF NOTE Assessment/Plan (1) Cellulitis Current Visit: No Status: Acute Assessment & Plan: -Predisposing factor of chronic venous insuffiency -Reviewed recent cultures from 06/05/24 and 06/07/24 showing proteus mirabilis and pseudomonas aeruginosa to the right posterior leg and right groin. Additional culture to the right lower extremity showing serratia fonticola -previous cultures from 05/11/24 and 05/15/24 of the right upper leg and right calf which showed staph aureus- it appears from the external pharmacy that the patient was prescribed clindamycin (which caused a rash)and later doxycycline following these cultures -Will start on levaquin based on previous cultures -PCT, ESR, CRP -Culture open wound with drainage -john borders -elevated affected limbs -Doppler BLE/ venous/arterial -Consider MRI/CT -Podiatry consult -wound therapy eval -Patient unable to care for himself at home, CM to look into placement -pt/ot 06/13: -Venous doppler negative for DVT -Art doppler pending -Continue levaquin -Podiatry consulted, pending eval -Recommend wound care and ID as OP for non-healing wound - patient requesting SNF placement as he is unable to care for himself at home 06/14: -Art duplex with left scattered arteriosclerotic disease in the remaining popliteal and dorsal pedal arteries without critical stenosis/obstruction -PT notes reviewed with recommendations for rehab stay for PT/OT due to weakness/activity intolerance with increase risk for falls at home - skilled need for cellulitis and wound care -Wound care evaluation Code(s): L03.90 - CELLULITIS, UNSPECIFIED (2) Ulcer of extremity due to chronic venous insufficiency Current Visit: Yes Status: Acute Assessment & Plan: -see cellulitis Code(s): L98.499 - NON-PRESSURE CHRONIC ULCER OF SKIN OF SITES W UNSP SEVERITY; I87.2 - VENOUS INSUFFICIENCY (CHRONIC) (PERIPHERAL) (3) History of atrial fibrillation Current Visit: Yes Status: Acute Assessment & Plan: -H/O on Xarelto -Tele Code(s): Z86.79 - PERSONAL HISTORY OF OTHER DISEASES OF THE CIRCULATORY SYSTEM (4) HTN (hypertension) Current Visit: Yes Status: Acute Assessment & Plan: -Stable, continue home meds, adjust as appropriate Code(s): I10 - ESSENTIAL (PRIMARY) HYPERTENSION (5) HLD (hyperlipidemia) Current Visit: Yes Status: Acute Assessment & Plan: -not on home meds, will check lipid, may add statin pending results Code(s): E78.5 - HYPERLIPIDEMIA, UNSPECIFIED (6) Anemia Current Visit: Yes Status: Acute Assessment & Plan: -appears chronic -iron profile - showing 9% iron sat - will start on ferrous sulfate - recommend heme referral as OP for iron deficiency workup -Monitor cbc daily 06/14: -stable Code(s): D64.9 - ANEMIA, UNSPECIFIED (7) Type 2 diabetes mellitus Current Visit: Yes Status: Acute Assessment & Plan: -SSI/glargine -ADA diet -A1c from 05/31/24 at 7.48 (8) Yeast dermatitis Current Visit: Yes Status: Acute Assessment & Plan: -noted on abdominal folds and groin -Nystatin powder -Diflucan contraindicated w/levaquin VTE: Xarelto PPI: protonix Dispo: 1-3 days Code(s): L03.90 - CELLULITIS, UNSPECIFIED (2) Ulcer of extremity due to chronic venous insufficiency Current Visit: Yes Status: Acute Code(s): L98.499 - NON-PRESSURE CHRONIC ULCER OF SKIN OF SITES W UNSP SEVERITY; I87.2 - VENOUS INSUFFICIENCY (CHRONIC) (PERIPHERAL) (3) History of atrial fibrillation Current Visit: Yes Status: Acute Code(s): Z86.79 - PERSONAL HISTORY OF OTHER DISEASES OF THE CIRCULATORY SYSTEM (4) HTN (hypertension) Current Visit: Yes Status: Acute Code(s): I10 - ESSENTIAL (PRIMARY) HYPERTENSION (5) HLD (hyperlipidemia) Current Visit: Yes Status: Acute Code(s): E78.5 - HYPERLIPIDEMIA, UNSPECIFIED (6) Anemia Current Visit: Yes Status: Acute Code(s): D64.9 - ANEMIA, UNSPECIFIED (7) Type 2 diabetes mellitus Current Visit: Yes Status: Acute (8) Yeast dermatitis Current Visit: Yes Status: Acute Code(s): B37.2 - CANDIDIASIS OF SKIN AND N AIL
[2024-06-14 05:14] LABS: Absolute Neutrophil Ct (ANC) 4.11 x10^3/uL (1.78-5.38); BASOPHIL % 0.5 % (0.2-1.2); Basophil (Absolute #) 0.03 x10^3/uL (0.01-0.08); Eosinophil % 7.2 % (0.8-7.0); Eosinophil (Absolute #) 0.44 x10^3/uL (0.04-0.54); Hematocrit 29.1 % (40.1-51.0); Hemoglobin 8.7 g/dL (13.7-17.5); IMMATURE GRAN # 0.03 x10^3u/L (0.001-0.031); IMMATURE GRAN % 0.5 % (0.001-0.429); Lymphocytes % 14.7 % (21.8-53.1); Mean Cell Volume 73.5 fL (79.0-92.2); Mean Corpuscular Hgb Concent. 29.9 g/dL (32.3-36.5); Mean Platelet Volume 9.6 fL (9.4-12.4); Monocytes % 9.8 % (5.3-12.2); Neutrophil % 67.3 % (34.0-67.9); Platelet Count 317 x10^3/uL (163-337); Red Blood Count 3.96 x10^6/uL (4.63-6.08); Red Cell Distribution Width 15.4 % (11.6-14.4); White Blood Count 6.1 x10^3/uL (4.23-9.07)
[2024-06-14 05:49] LABS: ANION GAP 9.6 MEQ/L (5-15); BILIRUBIN,TOTAL 0.4 mg/dL (0.2-1.3); Calcium 8.2 mg/dL (8.4-10.2); Creatinine 1 0.95 mg/dL (0.66-1.25); EST GLOMERULAR FILTRATION RATE 91.6 ML/MIN; Potassium 3.5 mmol/L (3.5-5.1); Total Protein 6.3 g/dL (6.3-8.2)
[2024-06-15 04:44] LABS: Absolute Neutrophil Ct (ANC) 4.07 x10^3/uL (1.78-5.38); BASOPHIL % 0.8 % (0.2-1.2); Basophil (Absolute #) 0.05 x10^3/uL (0.01-0.08); Eosinophil % 5.2 % (0.8-7.0); Eosinophil (Absolute #) 0.33 x10^3/uL (0.04-0.54); Hemoglobin 8.9 g/dL (13.7-17.5); IMMATURE GRAN # 0.04 x10^3u/L (0.001-0.031); IMMATURE GRAN % 0.6 % (0.001-0.429); Lymphocyte (Absolute #) 1.21 x10^3/uL (1.32-3.57); Lymphocytes % 19.1 % (21.8-53.1); Mean Cell Volume 73.9 fL (79.0-92.2); Mean Corpuscular Hemoglobin 21.9 pg (25.7-32.2); Mean Corpuscular Hgb Concent. 29.7 g/dL (32.3-36.5); Mean Platelet Volume 9.4 fL (9.4-12.4); Monocyte (Absolute #) 0.62 x10^3/uL (0.30-0.82); Monocytes % 9.8 % (5.3-12.2); Neutrophil % 64.5 % (34.0-67.9); Platelet Count 315 x10^3/uL (163-337); Red Blood Count 4.06 x10^6/uL (4.63-6.08); Red Cell Distribution Width 15.1 % (11.6-14.4); White Blood Count 6.3 x10^3/uL (4.23-9.07)
--- NOTE | 2024-06-15 05:04 | PCM.NOTE ---
Date and Time: 06/15/24 0508 Subjective Assessment: Mr. Hidalgo is a 59 year old male with a pmhx of peripheral neuropathy, AFIB(xarelto), DMII, and OA who presented to ED 06/12/24 with worsening gluteal and BLE wound. Patient states onset was approximately 2-3 weeks ago. He is currently being treated by podiatry Dr. Moreno with Edita cano to the LLE and RLE . Reviewed recent cultures from 06/05/24 and 06/07/24 showing proteus mirabilis and pseudomonas aeruginosa to the right posterior leg and right groin. Additional culture to the right lower extremity showing serratia fonticola. Also reviewed previous cultures from 05/11/24 and 05/15/24 of the right upper leg and right calf which showed staph aureus- it appears from the external pharmacy that the patient was prescribed clindamycin (which caused a rash)and later doxycycline following these cultures. Patient with allergies to penicillins, clinamycin, and sulfa. Upon examination, patient is noted with areas of excoriation and yeast to his abdominal folds and groin. His BLE wrapped in compression dressings. Right posterior thigh with open wound/drainage. Right groin with open wound/drainage. Patient has out patient appt. with Dr. Carin Sparks to evaluate wounds to the thigh/groin. Patient is requiring 2L of oxygen - due to desatting in ED -RA at baseline, states that he is not short of breath. Denies fever,cough, sob, cp, abdominal pain, MCGUIRE, dizziness, N/V/D.Upon arrival to ED vitals are stable. Lab findings remarkable for microcytic, hypochromic anemia which appears chronic with lab review, hgb at 9.3 and hyperglycemia with glucose level at 242 -most recent A1c 05/31/24 at 7.48. Venous doppler negative. Arterial doppler pending. Extensive yeast dermatitis to abdominal/groin folds- unable to give diflucan due to interaction with levaquin. Nystatin powder added. Blood cultures x 1 positive for gram +cocci. 06/13/24: Met with patient bedside. Endorses poor appetite and energy level. States he is unable to care for himself at home - would like placement. Surgery has evaluated wounds to thigh/groin with recs for OP wound therapy - no surgical intervention needed at this time. 06/14: Met with patient bedside. Nausea this morning - no vomiting. SNF placement pending. Continue current wound/abx therapy. Denies fever,cough, sob, cp, abdominal pain, MCGUIRE, or dizziness. Objective Exam Wound Assessment: Skin/Wound Assessment Wound/Incision Assessment Start: 06/12/24 14:22 Text: Status: Active Freq: Q6H Protocol: Document 06/15/24 02:00 LB (Rec: 06/15/24 03:21 LB [id number]) Wound/Incision Assessment Anterior/Posterior Abdomen Wound Assessment Shift Assessment Wound Type excoriation/maceration Wound Stage Non Pressure Wound General Appearance Open to air Wound Bed Greatest Portion Red (Granulation) Surrounding Tissue [place] Comment bilateral breast folds around to back -nystatin powder as ordered Right Medial Back Wound Assessment Shift Assessment Wound Type excoriation/maceration Wound Stage Non Pressure Wound Drainage Amount Minimal Drainage Description Sanguineous General Appearance Open to air,Draining Wound Bed Greatest Portion Red (Granulation) Surrounding Tissue [place] Comment pt refuses to let this nurse fully assess wounds. Right Posterior Thigh Wound Assessment Shift Assessment Wound Type varicose vein Wound Stage Non Pressure Wound Dressing Status Changed Drainage Amount Minimal Drainage Description Serosanguineous General Appearance Reddened,Draining Wound Bed Greatest Portion Dusky Red Surrounding Tissue Dark Red,Purple Primary Dressing MEPILEX Comment mepilex in place Other Wound Assessment Shift Assessment Wound Type Maceration Wound Stage Non Pressure Wound Drainage Amount Minimal Drainage Description Serosanguineous General Appearance Open to air,Draining Wound Bed Greatest Portion Red (Granulation) Wound Bed Lesser Portion Red (Granulation) Surrounding Tissue Bright Red,Macerated Comment upper thighs/groin area- reddened/excoriated/macerated, pt refuses to have nurse physically lift abd fold and scrotom to fully assess folds. Wound Photo Photo Taken No Objective Data Vital Signs: Vital Signs - 24 hr Temp Pulse Resp BP Pulse Ox 06/14/24 23:49 97.3 F 63 16 178/77 95 06/14/24 20:00 98.2 F 68 17 115/57 96 06/14/24 19:20 94 L 06/14/24 16:00 97.5 F 62 16 123/58 93 L 06/14/24 12:00 97.6 F 64 16 121/59 94 L 06/14/24 07:27 91 L 06/14/24 07:12 97.5 F 64 16 163/69 94 L Pain Assessment - Last Documented Pain Intensity 0 Pain Scale Used 0-10 Pain Scale Intake and Output: Intake & Output 06/12/24 06/13/24 06/14/24 06/15/24 11:59 11:59 11:59 11:59 Intake Total 2003 240 730 Balance 2003 240 730 Weight 126.552 kg 119.2 kg 115.5 kg Lab Results: Lab Results-Last 24 Hours 06/14/24 06/14/24 06/15/24 Range/Units 05:00 05:00 04:35 WBC 6.1 6.3 (4.23-9.07) x10^3/uL RBC 3.96 L 4.06 L (4.63-6.08) x10^6/uL Hgb 8.7 L 8.9 L (13.7-17.5) g/dL Hct 29.1 L 30.0 L (40.1-51.0) % MCV 73.5 L 73.9 L (79.0-92.2) fL MCH 22.0 L 21.9 L (25.7-32.2) pg MCHC 29.9 L 29.7 L (32.3-36.5) g/dL RDW 15.4 H 15.1 H (11.6-14.4) % Plt Count 317 315 (163-337) x10^3/uL MPV 9.6 9.4 (9.4-12.4) fL Gran % 67.3 64.5 (34.0-67.9) % Immature Gran % (Auto) 0.5 H 0.6 H (0.001-0.429) % Nucleat RBC Rel Count 0.0 0.0 (0.00-0.2) % Eos # (Auto) 0.44 0.33 (0.04-0.54) x10^3/uL Immature Gran # (Auto) 0.03 0.04 H (0.001-0.031) x10^3u/L Absolute Lymphs (auto) 0.90 L 1.21 L (1.32-3.57) x10^3/uL Absolute Monos (auto) 0.60 0.62 (0.30-0.82) x10^3/uL Absolute Nucleated RBC 0.00 0.00 (0.00-0.012) x10^3u/L Lymphocytes % 14.7 L 19.1 L (21.8-53.1) % Monocytes % 9.8 9.8 (5.3-12.2) % Eosinophils % 7.2 H 5.2 (0.8-7.0) % Basophils % 0.5 0.8 (0.2-1.2) % Absolute Granulocytes 4.11 4.07 (1.78-5.38) x10^3/uL Basophils # 0.03 0.05 (0.01-0.08) x10^3/uL Sodium 137 (135-145) mmol/L Potassium 3.5 (3.5-5.1) mmol/L Chloride 94 L (98-107) mmol/L Carbon Dioxide 37 H (22-30) mmol/L Anion Gap 9.6 (5-15) MEQ/L BUN 9 (9-20) mg/dL Creatinine 0.95 (0.66-1.25) mg/dL Estimated GFR 91.6 ML/MIN Glucose 150 H (74-106) mg/dL Calcium 8.2 L (8.4-10.2) mg/dL Total Bilirubin 0.40 (0.2-1.3) mg/dL AST 13 L (17-59) U/L ALT 9 (0-50) U/L Alkaline Phosphatase 93 (38-126) U/L Serum Total Protein 6.3 (6.3-8.2) g/dL Albumin 3.0 L (3.5-5.0) g/dL Radiology Exams: Radiology Procedures Category Date Time Status ARTERIAL BILAT LOWER EXTREMITY [US] Urgent Exams 06/13/24 10:00 Completed Multi-Disciplinary Progress Notes: Multi-Disciplinary Progress Notes 06/14/24 14:45 Occupational Therapy Note by Rain (Zackary#[id number])Pebbles OT SESSION (10:25-10:55): SURESH IS AGREEABLE TO OT SESSION THIS DATE. HE REQUIRES FREQUENT VERBAL CUES, ENCOURAGEMENT, AND EDUCATION ON IMPROVING OVERALL SAFETY INSIGHT. HE AGREES TO SIT UP ON EOB AND DECLINES THE NEED FOR ASSISTANCE. HE IS OBSERVED WITH SIGNIFICANT KYPHOTIC POSTURE AND CORE WEAKNESS. HE ATTEMPTS TO ENGAGE IN BUE STRENGTHENING EXERICSES, BUT REPORTS VARIOUS REASONS TO NOT ENGAGE IN THEM. INSTEAD, HE STANDS UP WITHOUT ASSISTANCE AND BEGINS TO WALK TO THE DOOR. OT PROVIDES SBA AND WHEN HE RETURNS TO THE BED, HE REPORTS INCREASED DIZZINESS. OT INSTRUCTED PATIENT ON DEEP BREATHING TECHNIQUES WITH IMPROVED SYMPTOMS. HE THEN BECOMES INTERESTED IN SITTING IN THE RECLINER. HE TRANSFERS TO RECLINER WITH SBA; HOWEVER, DOES NOT TOLERATE HIS LEGS ELEVATED. SAFETY IMPAIRMENTS NOTED WITH INCREASED RISK OF FALLING OUT OF CHAIR; OT RECOMMENDS FOR HIM TO RETURN TO THE BED. SURESH REPORTS THAT HE NEEDS TO USE BATHROOM, SO HE MOBILIZES INTO BATHROOM. DIRECTOR OF SPORTS MEDICINE NOTIFIED AND PATIENT WILL PULL ALARM FOR NURSING STAFF ASSIST BACK TO BED. Initialized on 06/14/24 14:45 - END OF NOTE 06/14/24 13:02 Case Management Note by Jud Kurtz S/W PATIENT- HE CONTINUES TO PLAN TO TRANSITION TO [facility] ONCE PRECERT IS DONE S/W MANUEL AT [facility]- SHE REPORTS SHE DOESN'T THINK THE PRECERT WAS STARTED YET- SHE WAS NOTIFIED THAT PATIENT WILL BE READY TO DC WHEN THIS IS DONE. I ASKED THAT THEY START PRECERT SHANTE. [employer]A [facility] INFO FAXED TO THEM AT THIS TIME TO HELP WITH PRECERT Initialized on 06/14/24 13:02 - END OF NOTE Assessment/Plan (1) Cellulitis Current Visit: No Status: Acute Assessment & Plan: -Predisposing factor of chronic venous insuffiency -Reviewed recent cultures from 06/05/24 and 06/07/24 showing proteus mirabilis and pseudomonas aeruginosa to the right posterior leg and right groin. Additional culture to the right lower extremity showing serratia fonticola -previous cultures from 05/11/24 and 05/15/24 of the right upper leg and right calf which showed staph aureus- it appears from the external pharmacy that the patient was prescribed clindamycin (which caused a rash)and later doxycycline following these cultures -Will start on levaquin based on previous cultures -PCT, ESR, CRP -Culture open wound with drainage -john borders -elevated affected limbs -Doppler BLE/ venous/arterial -Consider MRI/CT -Podiatry consult -wound therapy eval -Patient unable to care for himself at home, CM to look into placement -pt/ot 06/13: -Venous doppler negative for DVT -Art doppler pending -Continue levaquin -Podiatry consulted, pending eval -Recommend wound care and ID as OP for non-healing wound - patient requesting SNF placement as he is unable to care for himself at home 06/14: -Art duplex with left scattered arteriosclerotic disease in the remaining popliteal and dorsal pedal arteries without critical stenosis/obstruction -PT notes reviewed with recommendations for rehab stay for PT/OT due to weakness/activity intolerance with increase risk for falls at home - skilled need for cellulitis and wound care -Wound care evaluation Code(s): L03.90 - CELLULITIS, UNSPECIFIED (2) Ulcer of extremity due to chronic venous insufficiency Current Visit: Yes Status: Acute Assessment & Plan: -see cellulitis Code(s): L98.499 - NON-PRESSURE CHRONIC ULCER OF SKIN OF SITES W UNSP SEVERITY; I87.2 - VENOUS INSUFFICIENCY (CHRONIC) (PERIPHERAL) (3) History of atrial fibrillation Current Visit: Yes Status: Acute Assessment & Plan: -H/O on Xarelto -Tele Code(s): Z86.79 - PERSONAL HISTORY OF OTHER DISEASES OF THE CIRCULATORY SYSTEM (4) HTN (hypertension) Current Visit: Yes Status: Acute Assessment & Plan: -Stable, continue home meds, adjust as appropriate Code(s): I10 - ESSENTIAL (PRIMARY) HYPERTENSION (5) HLD (hyperlipidemia) Current Visit: Yes Status: Acute Assessment & Plan: -not on home meds, will check lipid, may add statin pending results Code(s): E78.5 - HYPERLIPIDEMIA, UNSPECIFIED (6) Anemia Current Visit: Yes Status: Acute Assessment & Plan: -appears chronic -iron profile - showing 9% iron sat - will start on ferrous sulfate - recommend heme referral as OP for iron deficiency workup -Monitor cbc daily 06/14: -stable Code(s): D64.9 - ANEMIA, UNSPECIFIED (7) Type 2 diabetes mellitus Current Visit: Yes Status: Acute Assessment & Plan: -SSI/glargine -ADA diet -A1c from 05/31/24 at 7.48 (8) Yeast dermatitis Current Visit: Yes Status: Acute Assessment & Plan: -noted on abdominal folds and groin -Nystatin powder -Diflucan contraindicated w/levaquin VTE: Xarelto PPI: protonix Dispo: 1-3 days Code(s): L03.90 - CELLULITIS, UNSPECIFIED Code(s): L03.90 - CELLULITIS, UNSPECIFIED (2) Ulcer of extremity due to chronic venous insufficiency Current Visit: Yes Status: Acute Code(s): L98.499 - NON-PRESSURE CHRONIC ULCER OF SKIN OF SITES W UNSP SEVERITY; I87.2 - VENOUS INSUFFICIENCY (CHRONIC) (PERIPHERAL) (3) History of atrial fibrillation Current Visit: Yes Status: Acute Code(s): Z86.79 - PERSONAL HISTORY OF OTHER DISEASES OF THE CIRCULATORY SYSTEM (4) HTN (hypertension) Current Visit: Yes Status: Acute Code(s): I10 - ESSENTIAL (PRIMARY) HYPERTENSION (5) HLD (hyperlipidemia) Current Visit: Yes Status: Acute Code(s): E78.5 - HYPERLIPIDEMIA, UNSPECIFIED (6) Anemia Current Visit: Yes Status: Acute Code(s): D64.9 - ANEMIA, UNSPECIFIED (7) Type 2 diabetes mellitus Current Visit: Yes Status: Acute (8) Yeast dermatitis Current Visit: Yes Status: Acute Code(s): B37.2 - CANDIDIASIS OF SKIN AND NAIL
[2024-06-15 05:09] LABS: BILIRUBIN,TOTAL 0.3 mg/dL (0.2-1.3); Calcium 8.4 mg/dL (8.4-10.2); Creatinine 1 1.04 mg/dL (0.66-1.25); EST GLOMERULAR FILTRATION RATE 82.2 ML/MIN; Potassium 3.5 mmol/L (3.5-5.1); Total Protein 6.3 g/dL (6.3-8.2)
[2024-06-15 05:19] LABS: ANION GAP 14.5 MEQ/L (5-15)
[2024-06-15 07:53] VITALS: O2SAT 93
--- NOTE | 2024-06-15 09:38 | PCM.DS ---
Discharge Summary Date of Admission: 06/12/24 12:21 Date of Discharge: 06/15/24 Admitting Physician: MANDO BLUE MD Consults: Consults on Case 06/12/24 09:02 ACO SDVA Referral ONCE 06/12/24 12:35 Consult Podiatry ROUTINE 06/12/24 13:08 Consult Surgery ROUTINE Primary Care Provider: MARCELLO CHERRY Allergies Allergies clindamycin Allergy (Verified 06/12/24 08:36) Penicillins Allergy (Verified 06/12/24 08:36) Sulfa (Sulfonamide Antibiotics) Allergy (Verified 06/12/24 08:36) Hospital Summary - Hospital Course Hospital Course: Mr. Hidalgo is a 59 year old male with a pmhx of peripheral neuropathy, AFIB(xarelto), DMII, and OA who presented to ED 06/12/24 with worsening gluteal and BLE wound. Patient states onset was approximately 2-3 weeks ago. He is currently being treated by podiatry Dr. Moreno with Edita cano to the LLE and RLE. Reviewed recent cultures from 06/05/24 and 06/07/24 showing proteus mirabilis and pseudomonas aeruginosa to the right posterior leg and right groin. Additional culture to the right lower extremity showing serratia fonticola. Also reviewed previous cultures from 05/11/24 and 05/15/24 of the right upper leg and right calf which showed staph aureus- it appears from the external pharmacy that the patient was prescribed clindamycin (which caused a rash)and later doxycycline following these cultures. Patient with allergies to penicillins, clinamycin, and sulfa. Upon examination, patient is noted with areas of excoriation and yeast to his abdominal folds and groin. His BLE wrapped in compression dressings. Right posterior thigh with open wound/drainage. Right groin with open wound/drainage. Patient has out patient appt. with Dr. Carin Sparks to evaluate wounds to the thigh/groin - he was evaluated during hospitalization with recommendations for wound care clinic. No surgical treatment for the right posterior varix due to poor wound healing. Initial Lab findings remarkable for microcytic, hypochromic anemia which appears chronic with lab review, hgb at 9.3 and hyperglycemia with glucose level at 242 -most recent A1c 05/31/24 at 7.48. Venous doppler negative. Arterial doppler with left scattered arteriosclerotic disease in the remaining popliteal and dorsal pedal arteries without critical stenosis/obstruction . Extensive yeast dermatitis to abdominal/groin folds- unable to give diflucan due to interaction with levaquin. Nystatin powder added with ulcerations improving. May need systemic diflucan once course of levaquin is completed. Blood cultures x 1 positive for gram +cocci. Patient to be discha rged to SNF for rehab. He will discharge on Levaquin. Will set patient up with wound clinic and ID (Dr. Grewal) as outpatient. Dr. Moreno (podiatry) for compression dressings. Latest Assessment & Plan (1) Cellulitis Current Visit: No Status: Acute Assessment & Plan: -Predisposing factor of chronic venous insuffiency -Reviewed recent cultures from 06/05/24 and 06/07/24 showing proteus mirabilis and pseudomonas aeruginosa to the right posterior leg and right groin. Additional culture to the right lower extremity showing serratia fonticola -previous cultures from 05/11/24 and 05/15/24 of the right upper leg and right calf which showed staph aureus- it appears from the external pharmacy that the patient was prescribed clindamycin (which caused a rash)and later doxycycline following these cultures -Will start on levaquin based on previous cultures -PCT, ESR, CRP -Culture open wound with drainage -john borders -elevated affected limbs -Doppler BLE/ venous/arterial -Consider MRI/CT -Podiatry consult -wound therapy eval -Patient unable to care for himself at home, CM to look into placement -pt/ot 06/13: -Venous doppler negative for DVT -Art doppler pending -Continue levaquin -Podiatry consulted, pending eval -Recommend wound care and ID as OP for non-healing wound - patient requesting SNF placement as he is unable to care for himself at home 06/14: -Art duplex with left scattered arteriosclerotic disease in the remaining popliteal and dorsal pedal arteries without critical stenosis/obstruction -PT notes reviewed with recommendations for rehab stay for PT/OT due to we akness/activity intolerance with increase risk for falls at home - skilled need for cellulitis and wound care -Wound care evaluation Code(s): L03.90 - CELLULITIS, UNSPECIFIED (2) Ulcer of extremity due to chronic venous insufficiency Current Visit: Yes Status: Acute Assessment & Plan: -see cellulitis Code(s): L98.499 - NON-PRESSURE CHRONIC ULCER OF SKIN OF SITES W UNSP SEVERITY; I87.2 - VENOUS INSUFFICIENCY (CHRONIC) (PERIPHERAL) (3) History of atrial fibrillation Current Visit: Yes Status: Acute Assessment & Plan: -H/O on Xarelto -Tele Code(s): Z86.79 - PERSONAL HISTORY OF OTHER DISEASES OF THE CIRCULATORY SYSTEM (4) HTN (hypertension) Current Visit: Yes Status: Acute Assessment & Plan: -Stable, continue home meds, adjust as appropriate Code(s): I10 - ESSENTIAL (PRIMARY) HYPERTENSION (5) HLD (hyperlipidemia) Current Visit: Yes Status: Acute Assessment & Plan: -not on home meds, will check lipid, may add statin pending results Code(s): E78.5 - HYPERLIPIDEMIA, UNSPECIFIED (6) Anemia Current Visit: Yes Status: Acute Assessment & Plan: -appears chronic -iron profile - showing 9% iron sat - will start on ferrous sulfate - recommend heme referral as OP for iron deficiency workup -Monitor cbc daily 06/14: -stable Code(s): D64.9 - ANEMIA, UNSPECIFIED (7) Type 2 diabetes mellitus Current Visit: Yes Status: Acute Assessment & Plan: -SSI/glargine -ADA diet -A1c from 05/31/24 at 7.48 (8) Yeast dermatitis Current Visit: Yes Status: Acute Assessment & Plan: -noted on abdominal folds and groin -Nystatin powder -Diflucan contraindicated w/levaquin I spent 35 minutes [id number] with the patient on the day of discharge performing discharge exam, discussing hospital stay and discharge instructions with patient and caregivers, preparation of discharge records, prescriptions & referral forms and addressing any questions/concerns the patient had as documented above. - Vitals & Intake/Output Vital Signs: Vital Signs Temperature 98.3 F 06/15/24 07:53 Pulse Rate 63 06/15/24 07:53 Respiratory Rate 18 06/15/24 07:53 Blood Pressure 150/72 06/15/24 07:53 O2 Sat by Pulse Oximetry 93 L 06/15/24 07:53 Intake & Output: Intake & Output 06/12/24 06/13/24 06/14/24 06/15/24 11:59 11:59 11:59 11:59 Intake Total 2003 240 730 Balance 2003 240 730 Weight 126.552 kg 119.2 kg 115.5 kg 114.3 kg - Lab Result Diagrams: 06/15/24 04:35 06/15/24 04:35 Lab Results-Last 24 Hrs: Lab Results-Last 24 Hours 06/15/24 06/15/24 Range/Units 04:35 04:35 WBC 6.3 (4.23-9.07) x10^3/uL RBC 4.06 L (4.63-6.08) x10^6/uL Hgb 8.9 L (13.7-17.5) g/dL Hct 30.0 L (40.1-51.0) % MCV 73.9 L (79.0-92.2) fL MCH 21.9 L (25.7-32.2) pg MCHC 29.7 L (32.3-36.5) g/dL RDW 15.1 H (11.6-14.4) % Plt Count 315 (163-337) x10^3/uL MPV 9.4 (9.4-12.4) fL Gran % 64.5 (34.0-67.9) % Immature Gran % (Auto) 0.6 H (0.001-0.429) % Nucleat RBC Rel Count 0.0 (0.00-0.2) % Eos # (Auto) 0.33 (0.04-0.54) x10^3/uL Immature Gran # (Auto) 0.04 H (0.001-0.031) x10^3u/L Absolute Lymphs (auto) 1.21 L (1.32-3.57) x10^3/uL Absolute Monos (auto) 0.62 (0.30-0.82) x10^3/uL Absolute Nucleated RBC 0.00 (0.00-0.012) x10^3u/L Lymphocytes % 19.1 L (21.8-53.1) % Monocytes % 9.8 (5.3-12.2) % Eosinophils % 5.2 (0.8-7.0) % Basophils % 0.8 (0.2-1.2) % Absolute Granulocytes 4.07 (1.78-5.38) x10^3/uL Basophils # 0.05 (0.01-0.08) x10^3/uL Sodium 139 (135-145) mmol/L Potassium 3.5 (3.5-5.1) mmol/L Chloride 93 L (98-107) mmol/L Carbon Dioxide 35 H (22-30) mmol/L Anion Gap 14.5 (5-15) MEQ/L BUN 14 (9-20) mg/dL Creatinine 1.04 (0.66-1.25) mg/dL Estimated GFR 82.2 ML/MIN Glucose 152 H (74-106) mg/dL Calcium 8.4 (8.4-10.2) mg/dL Total Bilirubin 0.30 (0.2-1.3) mg/dL AST 16 L (17-59) U/L ALT 10 (0-50) U/L Alkaline Phosphatase 94 (38-126) U/L Serum Total Protein 6.3 (6.3-8.2) g/dL Albumin 3.0 L (3.5-5.0) g/dL Micro Results-Entire Visit: Microbiology 06/12/24 09:37 Blood Culture Gram Stain - Final Blood Blood Culture - Preliminary 06/12/24 09:33 Blood Culture - Preliminary Blood Accuchecks Date 06/15/24 Date 06/14/24 Date 06/14/24 Date 06/14/24 Date 06/14/24 Time 20:30 Time 16:52 Time 16:51 Time 11:54 - Radiology Exams Ordered Rad Exams-Entire Visit: Radiology Procedures Category Date Time Status ARTERIAL BILAT LOWER EXTREMITY [US] Urgent Exams 06/13/24 10:00 Completed - Procedures and Test Procedures and Tests throughout Hospitalization: Therapy Orders & Screens 06/12/24 13:53 PT Eval & Treat (MD Order) ONCE Reason for Eval:: weakness Diagnosis: cellulitis OT Eval and Treat (MD Order) ONCE Comment: Physician Instructions: Reason For Exam: Diagnosis: cellulitis 06/12/24 14:22 PT Screen per Nursing Assess ONCE Comment: Protocol Order Physician Instructions: Greater than 3 points order PT Admission Screenin Reason For Exam: Triggered on Admission Diagnosis: cellulitis Open Wound/Cellutlitis/Pressure Ulcers: Yes Acute Fx/ORIF/Change in wt bearing status: No Severe MUSCULOSKELETAL pain: No ADL Dysfunction: Yes Acute CVA w/Hemiparesis/Hemiplegia: No Decreased Functional Mobility/Strength: Yes Sprain/Strain: No Acute Post-op Mobility Dysfunction: No Total Points: 9 06/12/24 14:56 Oxygen NASAL CANNULA 2 lpm Comment: Diagnosis: cellulitis 06/14/24 09:53 PT Eval & Treat (MD Order) ONCE Reason for Eval:: WOUND CARE (PODIATRY SEEING LEG WOUNDS) Diagnosis: cellulitis Discharge Exam General Appearance: no apparent distress Neurologic Exam: alert, oriented x 3, cooperative Eye Exam: PERRL Ears, Nose, Throat Exam: normal ENT inspection Neck Exam: normal inspection Respiratory Exam: normal breath sounds, lungs clear Cardiovascular Exam: regular rate/rhythm, normal heart sounds Gastrointestinal/Abdomen Exam: soft, normal bowel sounds Male Genitalia Exam: other (yeast dermatitis ulcerations to groin/ scrotal edema) Rectal Exam: deferred Back Exam: normal inspection Extremity Exam: inflammation, pedal edema, swelling, other (BLE with compression dressings) Skin Exam: other (see wound assessment) Wound Assessment: Skin/Wound Assessment Wound/Incision Assessment Start: 06/12/24 14:22 Text: Status: Active Freq: Q6H Protocol: Document 06/15/24 02:00 LB (Rec: 06/15/24 03:21 LB [id number]) Wound/Incision Assessment Anterior/Posterior Abdomen Wound Assessment Shift Assessment Wound Type excoriation/maceration Wound Stage Non Pressure Wound General Appearance Open to air Wound Bed Greatest Portion Red (Granulation) Surrounding Tissue [place] Comment bilateral breast folds around to back -nystatin powder as ordered Right Medial Back Wound Assessment Shift Assessment Wound Type excoriation/maceration Wound Stage Non Pressure Wound Drainage Amount Minimal Drainage Description Sanguineous General Appearance Open to air,Draining Wound Bed Greatest Portion Red (Granulation) Surrounding Tissue [place] Comment pt refuses to let this nurse fully assess wounds. Right Posterior Thigh Wound Assessment Shift Assessment Wound Type varicose vein Wound Stage Non Pressure Wound Dressing Status Changed Drainage Amount Minimal Drainage Description Serosanguineous General Appearance Reddened,Draining Wound Bed Greatest Portion Dusky Red Surrounding Tissue Dark Red,Purple Primary Dressing MEPILEX Comment mepilex in place Other Wound Assessment Shift Assessment Wound Type Maceration Wound Stage Non Pressure Wound Drainage Amount Minimal Drainage Description Serosanguineous General Appearance Open to air,Draining Wound Bed Greatest Portion Red (Granulation) Wound Bed Lesser Portion Red (Granulation) Surrounding Tissue Bright Red,Macerated Comment upper thighs/groin area- reddened/excoriated/macerated, pt refuses to have nurse physically lift abd fold and scrotom to fully assess folds. Wound Photo Photo Taken No Final Diagnosis/Problem List - Final Discharge Diagnosis/Problem (1) Cellulitis Current Visit: No Status: Acute Code(s): L03.90 - CELLULITIS, UNSPECIFIED (2) Ulcer of extremity due to chronic venous insufficiency Current Visit: Yes Status: Chronic Code(s): L98.499 - NON-PRESSURE CHRONIC ULCER OF SKIN OF SITES W UNSP SEVERITY; I87.2 - VENOUS INSUFFICIENCY (CHRONIC) (PERIPHERAL) (3) History of atrial fibrillation Current Visit: Yes Status: Chronic Code(s): Z86.79 - PERSONAL HISTORY OF OTHER DISEASES OF THE CIRCULATORY SYSTEM (4) HTN (hypertension) Current Visit: Yes Status: Chronic Code(s): I10 - ESSENTIAL (PRIMARY) HYPERTENSION (5) HLD (hyperlipidemia) Current Visit: Yes Status: Chronic Code(s): E78.5 - HYPERLIPIDEMIA, UNSPECIFIED (6) Anemia Current Visit: Yes Status: Chronic Code(s): D64.9 - ANEMIA, UNSPECIFIED (7) Type 2 diabetes mellitus Current Visit: Yes Status: Chronic (8) Yeast dermatitis Current Visit: Yes Status: Acute Code(s): B37.2 - CANDIDIASIS OF SKIN AND NAIL - Discharge Disposition: DC TO ANY "OTHER" ALF Condition: Fair Prescriptions: New Ferrous Sulfate 325 mg [Feosol 325 mg] 325 mg PO DAILY tablet Nystatin Powder 15 gm [Nystop Powder 15 gm] 1 gm TP BID Ondansetron HCl 4 mg/2 ml [Zofran 4 MG/2 ML VIAL] 4 mg IV Q6H PRN PRN PRN Reason: Nausea/Vomiting levoFLOXacin [Levofloxacin] 750 mg PO DAILY 6 Days #6 tablet Continue Insulin Lispro [Insulin Lispro Kwikpen U-100] 30 unit SQ BID Metoprolol Tartrate 25 mg [Lopressor 25MG Tab] 25 mg PO BID Ergocalciferol (Vitamin D2) [Vitamin D2] 1,250 mcg PO WEEKLY Torsemide 20 mg [Demadex 20 mg] 20 mg PO BID Insulin Glargine [Lantus Insulin] 60 unit SQ BREAKFAST Potassium Chloride 10 meq PO BID Atorvastatin Calcium 10 mg PO HS Famotidine 20 mg PO HS Ropinirole HCl 0.5 mg [Requip 0.5 MG] 0.5 mg PO HS Rivaroxaban [Xarelto] 20 mg PO HS Atorvastatin Calcium 20 mg PO DAILY Additional Instructions: ALF ORDERS: ADMIT TO HALFWAY FACILITY [address] DIET ACHS ACCU CHECKS PT/OT EVAL AND TREAT CLEANSE THIGH WOUND DAILY WITH HEBICLEANSE, THROUGHLY DRY AND COVER WITH FOAM DRESSING UNNA BOOTS TO BILATERAL LEGS FOLLOWS 3 DAYS A WEEK: APPLY IODIN COVER WITH ADAPTIC FOLLOWED BY STERILE 4X4 GAUZE APPLY UNNA BOOT, FAN FOLDED, TO LEVEL OF TIBIAL TUBEROSITY WRAPPED WITH KERLIX AND COBAN WITH MODERATE COMPRESSION SEE ATTACHED MED LIST Follow up with: EVA ODELL FNP [Primary Care Provider] - 06/22/24 1:20 pm
[2024-06-15 11:45] VITALS: BP 130/59; PULSE 67; RESP 20; TEMP 97.8
--- NOTE | 2024-06-15 15:32 | PCM.NOTE ---
Date and Time: 06/15/24 1531 Subjective Assessment: doing well Physical Exam - Narrative Narrative Physical Exam: Podiatry Physical Exam Objective Data Vital Signs: Vital Signs - 24 hr Temp Pulse Resp BP Pulse Ox 06/15/24 11:44 97.8 F 67 20 130/59 93 L 06/15/24 07:53 98.3 F 63 18 150/72 93 L 06/14/24 23:49 97.3 F 63 16 178/77 95 06/14/24 20:00 98.2 F 68 17 115/57 96 06/14/24 19:20 94 L 06/14/24 16:00 97.5 F 62 16 123/58 93 L Pain Assessment - Last Documented Pain Intensity 0 Pain Scale Used 0-10 Pain Scale Intake and Output: Intake & Output 06/13/24 06/14/24 06/15/24 06/16/24 11:59 11:59 11:59 11:59 Intake Total 2003 240 850 360 Balance 2003 240 850 360 Weight 119.2 kg 115.5 kg 114.3 kg Lab Results: Lab Results-Last 24 Hours 06/15/24 06/15/24 Range/Units 04:35 04:35 WBC 6.3 (4.23-9.07) x10^3/uL RBC 4.06 L (4.63-6.08) x10^6/uL Hgb 8.9 L (13.7-17.5) g/dL Hct 30.0 L (40.1-51.0) % MCV 73.9 L (79.0-92.2) fL MCH 21.9 L (25.7-32.2) pg MCHC 29.7 L (32.3-36.5) g/dL RDW 15.1 H (11.6-14.4) % Plt Count 315 (163-337) x10^3/uL MPV 9.4 (9.4-12.4) fL Gran % 64.5 (34.0-67.9) % Immature Gran % (Auto) 0.6 H (0.001-0.429) % Nucleat RBC Rel Count 0.0 (0.00-0.2) % Eos # (Auto) 0.33 (0.04-0.54) x10^3/uL Immature Gran # (Auto) 0.04 H (0.001-0.031) x10^3u/L Absolute Lymphs (auto) 1.21 L (1.32-3.57) x10^3/uL Absolute Monos (auto) 0.62 (0.30-0.82) x10^3/uL Absolute Nucleated RBC 0.00 (0.00-0.012) x10^3u/L Lymphocytes % 19.1 L (21.8-53.1) % Monocytes % 9.8 (5.3-12.2) % Eosinophils % 5.2 (0.8-7.0) % Basophils % 0.8 (0.2-1.2) % Absolute Granulocytes 4.07 (1.78-5.38) x10^3/uL Basophils # 0.05 (0.01-0.08) x10^3/uL Sodium 139 (135-145) mmol/L Potassium 3.5 (3.5-5.1) mmol/L Chloride 93 L (98-107) mmol/L Carbon Dioxide 35 H (22-30) mmol/L Anion Gap 14.5 (5-15) MEQ/L BUN 14 (9-20) mg/dL Creatinine 1.04 (0.66-1.25) mg/dL Estimated GFR 82.2 ML/MIN Glucose 152 H (74-106) mg/dL Calcium 8.4 (8.4-10.2) mg/dL Total Bilirubin 0.30 (0.2-1.3) mg/dL AST 16 L (17-59) U/L ALT 10 (0-50) U/L Alkaline Phosphatase 94 (38-126) U/L Serum Total Protein 6.3 (6.3-8.2) g/dL Albumin 3.0 L (3.5-5.0) g/dL Multi-Disciplinary Progress Notes: Multi-Disciplinary Progress Notes 06/15/24 14:01 Case Management Note by Jud Kurtz records faxed to [facility] electronically Initialized on 06/15/24 14:01 - END OF NOTE 06/15/24 12:25 Case Management Note by Jud Kurtz NP REQUESTING PATIENT FOLLOW UP WITH [facility]. APT MADE AND PLACED IN DC INSTRUCTIONS. WILL FAX CLINICALS FOR VISIT Initialized on 06/15/24 12:25 - END OF NOTE 06/15/24 09:54 Case Management Note by Jud Kurtz S/W PATIENT- HE CONTINUES TO PLAN TO TRANSITION TO [facility] AT TIME OF [facility]. THEY HAVE RECEIVED AUTH. PATIENT NOTIFIED. THEY ARE LOOKING TO SEE IF THEY CAN ARRANGE TRANSPORT FOR PATIENT. SECOND FACING BASTER NOTIFIED, HS AWARE Initialized on 06/15/24 09:54 - END OF NOTE 06/15/24 08:58 Case Management Note by Jud Kurtz PASRR AND LOC APPROVED, NO LEVEL II REQUIRED- FAXED TO [facility] AND PLACED IN CHART Initialized on 06/15/24 08:58 - END OF NOTE Assessment/Plan (1) Uncontrolled diabetes mellitus Current Visit: No Status: Chronic Qualifiers: Diabetes mellitus type: type 2 Glycemic state: with hyperglycemia Qualified Code(s): E11.65 - Type 2 diabetes mellitus with hyperglycemia Code(s): BFL3382 - (2) Multiple wounds of skin Current Visit: No Status: Chronic Code(s): T14.8XXA - OTHER INJURY OF UNSPECIFIED BODY REGION, INITIAL ENCOUNTER (3) Ulcer of extremity due to chronic venous insufficiency Current Visit: No Status: Chronic Assessment & Plan: Patient examination and evaluation. Unna boot applied to the bilateral lower extremity venous dopplers negative for DVT. Patients diabetes is being managed by their PCP - Last a1c 7.48 on 05/31/2024 Here today wishing to proceed with admission to half-way Code(s): L98.499 - NON-PRESSURE CHRONIC ULCER OF SKIN OF SITES W UNSP SEVERITY; I87.2 - VENOUS INSUFFICIENCY (CHRONIC) (PERIPHERAL) (4) Peripheral neuropathy Current Visit: No Status: Chronic Code(s): G62.9 - POLYNEUROPATHY, UNSPECIFIED (5) Poor social situation Current Visit: No Status: Acute Code(s): Z65.9 - PROBLEM RELATED TO UNSPECIFIED PSYCHOSOCIAL CIRCUMSTANCES (6) Cellulitis Current Visit: No Status: Acute Code(s): L03.90 - CELLULITIS, UNSPECIFIED (7) Ulcer of extremity due to chronic venous insufficiency Current Visit: Yes Status: Chronic Code(s): L98.499 - NON-PRESSURE CHRONIC ULCER OF SKIN OF SITES W UNSP SEVERITY; I87.2 - VENOUS INSUFFICIENCY (CHRONIC) (PERIPHERAL) (8) Type 2 diabetes mellitus Current Visit: Yes Status: Chronic (9) Yeast dermatitis Current Visit: Yes Status: Acute Code(s): B37.2 - CANDIDIASIS OF SKIN AND NAIL
[2024-06-18] MEDS ORDERED: VITAMIN D2 PO SCH (10:00)
== END 2024-06-15 14:15 ==
LOC: ED 08:34 → MED SURG 12:21
PROVIDERS: ADMIT Internal Medicine; ATTEND Internal Medicine
DX: L03.116 Cellulitis of left lower limb (principal); L03.115 Cellulitis of right lower limb; Z59.19 Other inadequate housing; Z59.811 Housing instability, housed, with risk of homelessness; L98.499 Non-pressure chronic ulcer of skin of other sites with unspecified severity; I87.2 Venous insufficiency (chronic) (peripheral); I48.91 Unspecified atrial fibrillation; I10 Essential (primary) hypertension; E78.5 Hyperlipidemia, unspecified; D64.9 Anemia, unspecified; E11.9 Type 2 diabetes mellitus without complications; B37.2 Candidiasis of skin and nail; E11.42 Type 2 diabetes mellitus with diabetic polyneuropathy; E11.65 Type 2 diabetes mellitus with hyperglycemia; Z79.01 Long term (current) use of anticoagulants; Z79.899 Other long term (current) drug therapy; G62.9 Polyneuropathy, unspecified; Z65.9 Problem related to unspecified psychosocial circumstances
CPT/HCPCS: 29580; 36000; 36415; 80053; 82607; 82728; 82746; 83540; 83550; 83605; 84145; 85025; 85652; 86140; 87040; 87070; 87077; 93925; 93970; 94760; 96374; 96375; 99213; 99284; J1817; J1956; J2270; J2405; A9270-GY

== ENCOUNTER 2024-11-02 13:05 | Inpatient (IN) | payer OTHER ==
[2024-11-02 14:02] LABS: Absolute Neutrophil Ct (ANC) 5.99 x10^3/uL (1.78-5.38); BASOPHIL % 0.4 % (0.2-1.2); Basophil (Absolute #) 0.03 x10^3/uL (0.01-0.08); Eosinophil % 2.4 % (0.8-7.0); Eosinophil (Absolute #) 0.18 x10^3/uL (0.04-0.54); Hematocrit 29.6 % (40.1-51.0); Hemoglobin 8.7 g/dL (13.7-17.5); IMMATURE GRAN # 0.02 x10^3u/L (0.001-0.031); IMMATURE GRAN % 0.3 % (0.001-0.429); Lymphocyte (Absolute #) 0.63 x10^3/uL (1.32-3.57); Lymphocytes % 8.5 % (21.8-53.1); Mean Corpuscular Hgb Concent. 29.4 g/dL (32.3-36.5); Mean Platelet Volume 9.3 fL (9.4-12.4); Monocytes % 8.1 % (5.3-12.2); Neutrophil % 80.3 % (34.0-67.9); Platelet Count 308 x10^3/uL (163-337); Red Blood Count 4.35 x10^6/uL (4.63-6.08); Red Cell Distribution Width 16.4 % (11.6-14.4); White Blood Count 7.5 x10^3/uL (4.23-9.07)
[2024-11-02 14:10] LABS: INFLUENZA A NEGATIVE (NEGATIVE); INFLUENZA B NEGATIVE (NEGATIVE); RESPIRATORY SYNCTIAL VIRUS NEGATIVE (NEGATIVE); SARS-CoV-2 Xpert Express NEGATIVE (NEGATIVE)
[2024-11-02 14:15] LABS: ALBUMIN 3.7 g/dL (3.5-5.0); ANION GAP 10.4 MEQ/L (5-15); BILIRUBIN,TOTAL 0.6 mg/dL (0.2-1.3); Calcium 8.4 mg/dL (8.4-10.2); Creatinine 1 0.72 mg/dL (0.66-1.25); EST GLOMERULAR FILTRATION RATE 104.6 ML/MIN; Potassium 4.5 mmol/L (3.5-5.1); Total Protein 6.9 g/dL (6.3-8.2)
--- NOTE | 2024-11-02 14:22 | XRAY ---
Indication: Cough. Short of breath. Comparison: January 20, 2024 Portable chest again demonstrates cardiomegaly. No focal infiltrate, consolidation, or large effusion. Bony thorax intact with minimal degenerative changes. No new/acute findings.
--- NOTE | 2024-11-02 14:23 | PCM.HP ---
History of Present Illness - Chief Complaint Chief Complaint: Cellulitis Date: 11/02/24 History of Present Illness: Mr. Hidalgo is a 59 year old male with a pmhx of peripheral neuropathy, AFIB(xarelto), DMII, and OA directly admitted 11/02/24 for worsening right upper thigh and BLE wounds. Patient is under the care of Dr. Moreno (podiatry). Patient also has complaints of fever, cough, congestion for the past three days with one episode of vomiting last night. Upon arrival temp noted at 100, otherwise stable vitals. Labs with anemia which appears chronic with a hgb of 8.7 otherwise unremarkable. Respiratory panel negative. Reviewed recent cultures with past infections of Staph aureus, MRSA, and enterococcus noted. Patient with multiple allergies. Admit for cellulitis and right upper thigh wound. Will start vanc/levaquin and obtain new cultures. Patient may need SNF placement on Discharge. Will consult podiatry and surgery for further recommendations. - Review of Systems Constitutional: Fever, Chills Eyes: No Symptoms Ears, Nose, & Throat: Nose Congestion, Nose Discharge Respiratory: Cough, Short Of Breath Cardiac: Edema (BLE) Abdominal/Gastrointestinal: No Symptoms Genitourinary Symptoms: No Symptoms Musculoskeletal: No Symptoms Skin: Cellulitis, Skin Lesions Neurological: Other (neuropathy) Psychological: No Symptoms Endocrine: No Symptoms Hematologic/Lymphatic: No Symptoms Immunological/Allergic: No Symptoms Medications & Allergies Home Medications: Home Medication List Ergocalciferol (Vitamin D2) [Vitamin D2] 1,250 mcg PO WEEKLY 02/05/23 [History Confirmed 11/02/24] Metoprolol Tartrate 25 mg [Lopressor 25MG Tab] 25 mg PO BID 02/05/23 [History Confirmed 11/02/24] Insulin Glargine [Lantus Insulin] 66 unit SQ BID 10/18/23 [History Confirmed 11/02/24] Torsemide 20 mg [Demadex 20 mg] 20 mg PO BID 10/18/23 [History Confirmed 11/02/24] Potassium Chloride 10 meq PO BID 02/03/24 [History Confirmed 11/02/24] Atorvastatin Calcium 20 mg PO HS 06/12/24 [History Confirmed 11/02/24] Atorvastatin Calcium 40 mg PO DAILY 06/12/24 [History Confirmed 11/02/24] Rivaroxaban [Xarelto] 20 mg PO HS 06/12/24 [History Confirmed 11/02/24] Ropinirole HCl 0.5 mg [Requip 0.5 MG] 0.5 mg PO HS 06/12/24 [History Confirmed 11/02/24] Furosemide 20 mg [Lasix 20 mg] 20 mg PO BID 11/02/24 [History Confirmed 11/02/24] Insulin Lispro [Humalog] 14 unit SQ LUNCH 11/02/24 [History Confirmed 11/02/24] Insulin Lispro [Humalog] 24 unit SQ BREAKFAST 11/02/24 [History Confirmed 11/02/24] Insulin Lispro [Humalog] 26 unit SQ DINNER 11/02/24 [History Confirmed 11/02/24] Loperamide HCl 2 mg [Imodium 2 mg] 2 mg PO Q2H/PRN PRN 11/02/24 [History Confirmed 11/02/24] Allergies/Adverse Reactions: Allergies Allergy/AdvReac Type Severity Reaction Status Date / Time clindamycin Allergy Verified 11/02/24 13:55 Penicillins Allergy Verified 11/02/24 13:55 Sulfa (Sulfonamide Allergy Verified 11/02/24 13:55 Antibiotics) - Past Medical History Past Medical History: Yes Neurological History: Peripheral Neuropathy ENT History: No Pertinent History Cardiac History: Angina, Arrhythmia Respiratory History: No Pertinent History Endocrine Medical History: Diabetes Type II Musculoskelatal History: Osteoarthritis GI Medical History: No Pertinent History History: No Pertinent History Pyscho-Social History: No Pertinent History Male Reproductive Disorders: No Pertinent History Comment: HISTORY OF B LE WOUNDS, PARTIAL SEPTUS INVERTUS, RUPTURED L ROTATOR CUFF. - Past Surgical History Past Surgical History: Yes Neuro Surgical History: No Pertinent History Cardiac History: No Pertinent History Respiratory Surgery: No Pertinent History GI Surgical History: No Pertinent History Genitourinary Surgical Hx: No Pertinent History Musculskeletal Surgical Hx: No Pertinent History Male Surgical History: No Pertinent History Other Surgical History: PINWHEEL DRAIN IN BACK TO DRAIN FLUIDS_DONE BY [employer] MEZA 2021 Significant Family History: cancer - Social History Smoking Status: Never smoker Exposure to second hand smoke: No Alcohol: None Drug Use: none - Social Determinants of Health Will the patient participate in the screening: Yes Do you worry about a steady place to live?: Yes In the past 12 months,have you had to go without utilities?: No Have you or anyone in your house had to go without enough: Yes Transportation Issues: No Has anyone in your support network made you feel unsafe?: No Does the patient want assistance with any of the above?: No - Physical Exam Vital Signs: Vital Signs - 24 hr Temp Pulse Resp BP Pulse Ox 11/02/24 13:13 100 F 84 18 136/63 96 General Appearance: no apparent distress Neurologic Exam: alert, oriented x 3, cooperative Eye Exam: PERRL/EOMI Ears, Nose, Throat Exam: normal ENT inspection Neck Exam: normal inspection Respiratory Exam: crackles/rales Cardiovascular Exam: regular rate/rhythm, normal heart sounds Gastrointestinal/Abdomen Exam: soft, normal bowel sounds Rectal Exam: deferred Back Exam: normal inspection Extremity Exam: inflammation, swelling Skin Exam: other (Right upper thigh with open wound with serosangineous drainage) Results - Labs Lab/Micro Results: Lab Results-Last 24 Hours 11/02/24 11/02/24 Range/Units 13:31 14:00 WBC 7.5 (4.23-9.07) x10^3/uL RBC 4.35 L (4.63-6.08) x10^6/uL Hgb 8.7 L (13.7-17.5) g/dL Hct 29.6 L (40.1-51.0) % MCV 68.0 L (79.0-92.2) fL MCH 20.0 L (25.7-32.2) pg MCHC 29.4 L (32.3-36.5) g/dL RDW 16.4 H (11.6-14.4) % Plt Count 308 (163-337) x10^3/uL MPV 9.3 L (9.4-12.4) fL Gran % 80.3 H (34.0-67.9) % Immature Gran % (Auto) 0.3 (0.001-0.429) % Nucleat RBC Rel Count 0.0 (0.00-0.2) % Eos # (Auto) 0.18 (0.04-0.54) x10^3/uL Immature Gran # (Auto) 0.02 (0.001-0.031) x10^3u/L Absolute Lymphs (auto) 0.63 L (1.32-3.57) x10^3/uL Absolute Monos (auto) 0.60 (0.30-0.82) x10^3/uL Absolute Nucleated RBC 0.00 (0.00-0.012) x10^3u/L Lymphocytes % 8.5 L (21.8-53.1) % Monocytes % 8.1 (5.3-12.2) % Eosinophils % 2.4 (0.8-7.0) % Basophils % 0.4 (0.2-1.2) % Absolute Granulocytes 5.99 H (1.78-5.38) x10^3/uL Basophils # 0.03 (0.01-0.08) x10^3/uL Influenza Type A Ag NEGATIVE (NEGATIVE) Influenza Type B Ag NEGATIVE (NEGATIVE) RSV (PCR) NEGATIVE (NEGATIVE) SARS-CoV-2 (PCR) NEGATIVE (NEGATIVE) - Radiology Impressions Radiology Exams & Impressions: Radiology Procedures Category Date Time Status CHEST 1 VIEW (PORTABLE) Stat Exams 11/02/24 13:48 Taken Assessment/Plan (1) Cellulitis Current Visit: Yes Status: Acute Assessment & Plan: -Consult podiatry - follows with Dr. Moreno -Leslie -CBC reviewed, WBC wnl -CRP, ESR -Wound cultures to RLE, LLE, and right upper thigh -Jose Juan borders -[place], PCT Code(s): L03.90 - CELLULITIS, UNSPECIFIED (2) Ulcer of extremity due to chronic venous insufficiency Current Visit: No Status: Chronic Assessment & Plan: -see cellulitis Code(s): L98.499 - NON-PRESSURE CHRONIC ULCER OF SKIN OF SITES W UNSP SEVERITY; I87.2 - VENOUS INSUFFICIENCY (CHRONIC) (PERIPHERAL) (3) Cough Current Visit: Yes Status: Acute Assessment & Plan: -WBC reviewed and WNL -Resp panel negative for flu/covid/rsv -CXR pending -leslie started -Robitussin Code(s): R05.9 - COUGH, UNSPECIFIED (4) Wound of thigh Current Visit: Yes Status: Acute Assessment & Plan: -Surgery consulted - appreciate recs -consulted in the past and at that time no recommendations for surgical intervention -worsening -vanc/levaquin started -culture Code(s): S71.109A - UNSPECIFIED OPEN WOUND, UNSPECIFIED THIGH, INITIAL ENCOUNTER (5) Anemia Current Visit: No Status: Chronic Assessment & Plan: -Chronic -Hgb stable at 8.7 -Monitor and replace if hgb < 7 -continue ferrous sulfate Code(s): D64.9 - ANEMIA, UNSPECIFIED (6) HTN (hypertension) Current Visit: No Status: Chronic Assessment & Plan: -stable continue home meds Code(s): I10 - ESSENTIAL (PRIMARY) HYPERTENSION (7) History of atrial fibrillation Current Visit: No Status: Chronic Assessment & Plan: -Xarelto - continue -tele Code(s): Z86.79 - PERSONAL HISTORY OF OTHER DISEASES OF THE CIRCULATORY SYSTEM (8) Hyperlipidemia Current Visit: No Status: Chronic Assessment & Plan: -not on home meds -will check lipid in the a.m Code(s): E78.5 - HYPERLIPIDEMIA, UNSPECIFIED (9) Major depressive disorder Current Visit: No Status: Chronic Assessment & Plan: -continue home meds Code(s): F32.9 - MAJOR DEPRESSIVE DISORDER, SINGLE EPISODE, UNSPECIFIED (10) Type 2 diabetes mellitus Current Visit: No Status: Chronic Assessment & Plan: -A1c -SSI -meal/glargine insulin -ADA diet -Discussed the importance of good glycemic control VTE: Xarelto PPI: protonix Dispo: 2-5 days
[2024-11-02] MEDS ORDERED: Zofran 4 MG/2 ML VIAL IV PRN (14:40)
[2024-11-02] MEDS ORDERED: LEVOFLOXACIN 750MG/150ML D5W 750 MG/150 ML BAG IV SCH (15:00)
[2024-11-02] MEDS: PHARMACY DOSING REQUEST MC ONE (15:41)
[2024-11-02] MEDS: VANCOMYCIN 1 GRAM/200 ML BAG 1 GM/200 ML PIGGYBACK IV SCH (15:42)
[2024-11-02] MEDS: HUMALOG SQ PRN (17:20)
[2024-11-02] MEDS: LEVOFLOXACIN 750MG/150ML D5W 750 MG/150 ML BAG IV SCH (17:21)
[2024-11-02] MEDS: TYLENOL 325 MG PO PRN (17:28)
[2024-11-02 18:01] LABS: Appearance Clear (Clear); Bacteria None Seen /HPF (None Seen); Bilirubin Negative (Negative); Blood Negative (Negative); Epithelial Cells None Seen /HPF (None Seen); Glucose, Urine Negative (Negative); Hyaline Casts NONE SEEN /LPF (0-2); Ketones Negative (Negative); Leukocyte Esterase Negative (Negative); Nitrite Negative (Negative); Ph 8.5 (4.6-8.0); Protein,Urine Dip 30 (Negative); WBC 0-2 /HPF (0-5)
[2024-11-03] MEDS ORDERED: IMODIUM 2 MG PO PRN (05:05)
--- NOTE | 2024-11-03 05:05 | PCM.NOTE ---
Date and Time: 11/03/24 0504 Subjective Assessment: Mr. Hidalgo is a 59 year old male with a pmhx of peripheral neuropathy, AFIB(xarelto), DMII, and OA directly admitted 11/02/24 for worsening right upper thigh and BLE wounds. Patient is under the care of Dr. Moreno (podiatry). Patient also has complaints of fever, cough, congestion for the past three days with one episode of vomiting last night. Upon arrival temp noted at 100, otherwise stable vitals. Labs with anemia which appears chronic with a hgb of 8.7 otherwise unremarkable. Respiratory panel negative. Reviewed recent cultures with past infections of Staph aureus, MRSA, and enterococcus noted. Patient with multiple allergies. Admit for cellulitis and right upper thigh wound. Will start vanc/levaquin and obtain new cultures. Patient may need SNF placement on Discharge. Surgery consulted for right upper thigh wound- no surgical intervention recommendations- advised to continue antibiotics. 11/03/24: Met with patient bedside. Endorses improvement in cough and respiratory symptoms. Pain in BLE improved. Surgery consulted for right upper thigh wound- no surgical recommendations- advised continuation of abx. Will order CT of lower ext to evaluate for abscess. Plan to continue abx- patient to discharge to SNF when medically stable. Wound cultures pending. - Review of Systems Constitutional: No Symptoms Eyes: No Symptoms Respiratory: Cough Cardiac: No Symptoms Abdominal/Gastrointestinal: No Symptoms Genitourinary Symptoms: No Symptoms Musculoskeletal: No Symptoms Skin: Cellulitis, Other (right upper thigh wound open with drainage- purulent) Neurological: No Symptoms Psychological: No Symptoms Endocrine: No Symptoms Hematologic/Lymphatic: No Symptoms Immunological/Allergic: No Symptoms Objective Exam General Appearance: no apparent distress Neurologic Exam: alert, oriented x 3, cooperative Skin Exam: other (right upper thigh wound open with drainage- purulent Cellulitis BLE covered in Unna boots) Wound Assessment: Skin/Wound Assessment Wound/Incision Assessment Start: 11/02/24 13:59 Text: Status: Active Freq: Q6H Protocol: Document 11/03/24 02:00 MP (Rec: 11/03/24 03:26 MP [id number]) Wound/Incision Assessment Right Posterior Thigh Wound Assessment Shift Assessment Wound Type CELLULITUS Wound Stage Non Pressure Wound Dressing Status Dry & Intact Primary Dressing 6X6 MEPILEX Comment BARRIER CREAM APPLIED AROUND OUTSIDE OF DRESSING Wound Photo Photo Taken No Eye Exam: PERRL Ears, Nose, Throat Exam: normal ENT inspection Neck Exam: normal inspection Respiratory Exam: normal breath sounds, lungs clear Cardiovascular Exam: regular rate/rhythm, normal heart sounds Gastrointestinal/Abdomen Exam: soft, normal bowel sounds Extremity Exam: inflammation Back Exam: normal inspection Male Genitalia Exam: deferred Rectal Exam: deferred Objective Data Vital Signs: Vital Signs - 24 hr Temp Pulse Resp BP Pulse Ox 11/03/24 03:00 97.2 F 81 18 159/71 95 11/02/24 23:00 97.7 F 71 19 104/51 96 11/02/24 19:55 98.9 F 84 17 103/56 94 L 11/02/24 16:26 98.3 F 84 16 135/63 93 L 11/02/24 14:24 100 F 84 18 136/63 96 11/02/24 13:13 100 F 84 18 136/63 96 Pain Assessment - Last Documented Pain Intensity 2 Pain Scale Used 0-10 Pain Scale Intake and Output: Intake & Output 10/31/24 11/01/24 11/02/24 11/03/24 11:59 11:59 11:59 11:59 Intake Total 1100 Output Total 400 Balance 700 Weight 122.4 kg Lab Results: Lab Results-Last 24 Hours 11/02/24 11/02/24 11/02/24 Range/Units 13:31 14:00 14:00 WBC 7.5 (4.23-9.07) x10^3/uL RBC 4.35 L (4.63-6.08) x10^6/uL Hgb 8.7 L (13.7-17.5) g/dL Hct 29.6 L (40.1-51.0) % MCV 68.0 L (79.0-92.2) fL MCH 20.0 L (25.7-32.2) pg MCHC 29.4 L (32.3-36.5) g/dL RDW 16.4 H (11.6-14.4) % Plt Count 308 (163-337) x10^3/uL MPV 9.3 L (9.4-12.4) fL Gran % 80.3 H (34.0-67.9) % Immature Gran % (Auto) 0.3 (0.001-0.429) % Nucleat RBC Rel Count 0.0 (0.00-0.2) % Eos # (Auto) 0.18 (0.04-0.54) x10^3/uL Immature Gran # (Auto) 0.02 (0.001-0.031) x10^3u/L Absolute Lymphs (auto) 0.63 L (1.32-3.57) x10^3/uL Absolute Monos (auto) 0.60 (0.30-0.82) x10^3/uL Absolute Nucleated RBC 0.00 (0.00-0.012) x10^3u/L Lymphocytes % 8.5 L (21.8-53.1) % Monocytes % 8.1 (5.3-12.2) % Eosinophils % 2.4 (0.8-7.0) % Basophils % 0.4 (0.2-1.2) % Absolute Granulocytes 5.99 H (1.78-5.38) x10^3/uL Basophils # 0.03 (0.01-0.08) x10^3/uL ESR (0-15) mm/hr Sodium 139 (135-145) mmol/L Potassium 4.5 (3.5-5.1) mmol/L Chloride 99 (98-107) mmol/L Carbon Dioxide 34 H (22-30) mmol/L Anion Gap 10.4 (5-15) MEQ/L BUN 12 (9-20) mg/dL Creatinine 0.72 (0.66-1.25) mg/dL Estimated GFR 104.6 ML/MIN Glucose 171 H (74-106) mg/dL Hemoglobin A1c (4.5-6.0) % Calcium 8.4 (8.4-10.2) mg/dL Total Bilirubin 0.60 (0.2-1.3) mg/dL AST 17 (17-59) U/L ALT 13 (0-50) U/L Alkaline Phosphatase 100 (38-126) U/L Serum Total Protein 6.9 (6.3-8.2) g/dL Albumin 3.7 (3.5-5.0) g/dL Procalcitonin (0.030-0.080) ng/mL Urine Color (Yellow) Urine Appearance (Clear) Urine pH (4.6-8.0) Ur Specific [place] (1.005-1.030) Urine Protein (Negative) Urine Glucose (UA) (Negative) mg/dL Urine Ketones (Negative) Urine Blood (Negative) Urine Nitrite (Negative) Urine Bilirubin (Negative) Urine Urobilinogen (0.2) mg/dL Ur Leukocyte Esterase (Negative) U Hyaline Cast (Auto) (0-2) /LPF Urine Microscopic RBC (0-5) /HPF Urine Microscopic WBC (0-5) /HPF Ur Epithelial Cells (None Seen) /HPF Urine Bacteria (None Seen) /HPF Urine Culture Reflexed (NO) Influenza Type A Ag NEGATIVE (NEGATIVE) Influenza Type B Ag NEGATIVE (NEGATIVE) RSV (PCR) NEGATIVE (NEGATIVE) SARS-CoV-2 (PCR) NEGATIVE (NEGATIVE) 11/02/24 11/02/24 11/02/24 Range/Units 16:10 16:10 16:10 WBC (4.23-9.07) x10^3/uL RBC (4.63-6.08) x10^6/uL Hgb (13.7-17.5) g/dL Hct (40.1-51.0) % MCV (79.0-92.2) fL MCH (25.7-32.2) pg MCHC (32.3-36.5) g/dL RDW (11.6-14.4) % Plt Count (163-337) x10^3/uL MPV (9.4-12.4) fL Gran % (34.0-67.9) % Immature Gran % (Auto) (0.001-0.429) % Nucleat RBC Rel Count (0.00-0.2) % Eos # (Auto) (0.04-0.54) x10^3/uL Immature Gran # (Auto) (0.001-0.031) x10^3u/L Absolute Lymphs (auto) (1.32-3.57) x10^3/uL Absolute Monos (auto) (0.30-0.82) x10^3/uL Absolute Nucleated RBC (0.00-0.012) x10^3u/L Lymphocytes % (21.8-53.1) % Monocytes % (5.3-12.2) % Eosinophils % (0.8-7.0) % Basophils % (0.2-1.2) % Absolute Granulocytes (1.78-5.38) x10^3/uL Basophils # (0.01-0.08) x10^3/uL ESR 93 H (0-15) mm/hr Sodium (135-145) mmol/L Potassium (3.5-5.1) mmol/L Chloride (98-107) mmol/L Carbon Dioxide (22-30) mmol/L Anion Gap (5-15) MEQ/L BUN (9-20) mg/dL Creatinine (0.66-1.25) mg/dL Estimated GFR ML/MIN Glucose (74-106) mg/dL Hemoglobin A1c 7.19 H (4.5-6.0) % Calcium (8.4-10.2) mg/dL Total Bilirubin (0.2-1.3) mg/dL AST (17-59) U/L ALT (0-50) U/L Alkaline Phosphatase (38-126) U/L Serum Total Protein (6.3-8.2) g/dL Albumin (3.5-5.0) g/dL Procalcitonin 0.061 (0.030-0.080) ng/mL Urine Color (Yellow) Urine Appearance (Clear) Urine pH (4.6-8.0) Ur Specific [place] (1.005-1.030) Urine Protein (Negative) Urine Glucose (UA) (Negative) mg/dL Urine Ketones (Negative) Urine Blood (Negative) Urine Nitrite (Negative) Urine Bilirubin (Negative) Urine Urobilinogen (0.2) mg/dL Ur Leukocyte Esterase (Negative) U Hyaline Cast (Auto) (0-2) /LPF Urine Microscopic RBC (0-5) /HPF Urine Microscopic WBC (0-5) /HPF Ur Epithelial Cells (None Seen) /HPF Urine Bacteria (None Seen) /HPF Urine Culture Reflexed (NO) Influenza Type A Ag (NEGATIVE) Influenza Type B Ag (NEGATIVE) RSV (PCR) (NEGATIVE) SARS-CoV-2 (PCR) (NEGATIVE) 11/02/24 Range/Units 17:30 WBC (4.23-9.07) x10^3/uL RBC (4.63-6.08) x10^6/uL Hgb (13.7-17.5) g/dL Hct (40.1-51.0) % MCV (79.0-92.2) fL MCH (25.7-32.2) pg MCHC (32.3-36.5) g/dL RDW (11.6-14.4) % Plt Count (163-337) x10^3/uL MPV (9.4-12.4) fL Gran % (34.0-67.9) % Immature Gran % (Auto) (0.001-0.429) % Nucleat RBC Rel Count (0.00-0.2) % Eos # (Auto) (0.04-0.54) x10^3/uL Immature Gran # (Auto) (0.001-0.031) x10^3u/L Absolute Lymphs (auto) (1.32-3.57) x10^3/uL Absolute Monos (auto) (0.30-0.82) x10^3/uL Absolute Nucleated RBC (0.00-0.012) x10^3u/L Lymphocytes % (21.8-53.1) % Monocytes % (5.3-12.2) % Eosinophils % (0.8-7.0) % Basophils % (0.2-1.2) % Absolute Granulocytes (1.78-5.38) x10^3/uL Basophils # (0.01-0.08) x10^3/uL ESR (0-15) mm/hr Sodium (135-145) mmol/L Potassium (3.5-5.1) mmol/L Chloride (98-107) mmol/L Carbon Dioxide (22-30) mmol/L Anion Gap (5-15) MEQ/L BUN (9-20) mg/dL Creatinine (0.66-1.25) mg/dL Estimated GFR ML/MIN Glucose (74-106) mg/dL Hemoglobin A1c (4.5-6.0) % Calcium (8.4-10.2) mg/dL Total Bilirubin (0.2-1.3) mg/dL AST (17-59) U/L ALT (0-50) U/L Alkaline Phosphatase (38-126) U/L Serum Total Protein (6.3-8.2) g/dL Albumin (3.5-5.0) g/dL Procalcitonin (0.030-0.080) ng/mL Urine Color Yellow (Yellow) Urine Appearance Clear (Clear) Urine pH 8.5 A (4.6-8.0) Ur Specific [place] 1.020 (1.005-1.030) Urine Protein 30 (Negative) Urine Glucose (UA) Negative (Negative) mg/dL Urine Ketones Negative (Negative) Urine Blood Negative (Negative) Urine Nitrite Negative (Negative) Urine Bilirubin Negative (Negative) Urine Urobilinogen 1.0 A (0.2) mg/dL Ur Leukocyte Esterase Negative (Negative) U Hyaline Cast (Auto) NONE SEEN (0-2) /LPF Urine Microscopic RBC 3-5 (0-5) /HPF Urine Microscopic WBC 0-2 (0-5) /HPF Ur Epithelial Cells None Seen (None Seen) /HPF Urine Bacteria None Seen (None Seen) /HPF Urine Culture Reflexed NO (NO) Influenza Type A Ag (NEGATIVE) Influenza Type B Ag (NEGATIVE) RSV (PCR) (NEGATIVE) SARS-CoV-2 (PCR) (NEGATIVE) Radiology Exams: Radiology Procedures Category Date Time Status CHEST 1 VIEW (PORTABLE) Stat Exams 11/02/24 13:48 Completed Multi-Disciplinary Progress Notes: Multi-Disciplinary Progress Notes 11/02/24 14:58 Pharmacy Note by Juan Liang Vancomycin dosed at 1gm iv q8h. Trough with 14:00 dose on Wednesday. Initialized on 11/02/24 14:58 - END OF NOTE Assessment/Plan (1) Cellulitis Current Visit: Yes Status: Acute Assessment & Plan: -Consult podiatry - follows with Dr. Moreno -Vicente/krista -CBC reviewed, WBC wnl -CRP, ESR -Wound cultures to RLE, LLE, and right upper thigh -Jose Juan borders -[place], PCT 11/03/24: -WBC reviewed at 7.6 WNL Code(s): L03.90 - CELLULITIS, UNSPECIFIED (2) Ulcer of extremity due to chronic venous insufficiency Current Visit: No Status: Chronic Assessment & Plan: -see cellulitis Code(s): L98.499 - NON-PRESSURE CHRONIC ULCER OF SKIN OF SITES W UNSP SEVERITY; I87.2 - VENOUS INSUFFICIENCY (CHRONIC) (PERIPHERAL) (3) Cough Current Visit: Yes Status: Acute Assessment & Plan: -WBC reviewed and WNL -Resp panel negative for flu/covid/rsv -CXR pending -vanc/levaquin started -Robitussin Code(s): R05.9 - COUGH, UNSPECIFIED (4) Wound of thigh Current Visit: Yes Status: Acute Assessment & Plan: -Surgery consulted - appreciate recs -consulted in the past and at that time no recommendations for surgical intervention -worsening -vanc/levaquin started -culture 11/03/24: -Surgery team evaluated patient - no surgical intervention needed - advised continuation of abx -CT LE ordered to r/o abscess -Continue vanc/levaquin - follow cultures Code(s): S71.109A - UNSPECIFIED OPEN WOUND, UNSPECIFIED THIGH, INITIAL ENCOUNTER (5) Anemia Current Visit: No Status: Chronic Assessment & Plan: -Chronic -Hgb stable at 8.7 -Monitor and replace if hgb < 7 -continue ferrous sulfate 11/03/24: -Hgb reviewed and remains stable at 8.2 Code(s): D64.9 - ANEMIA, UNSPECIFIED (6) HTN (hypertension) Current Visit: No Status: Chronic Assessment & Plan: -stable continue home meds Code(s): I10 - ESSENTIAL (PRIMARY) HYPERTENSION (7) History of atrial fibrillation Current Visit: No Status: Chronic Assessment & Plan: -Xarelto - continue -tele Code(s): Z86.79 - PERSONAL HISTORY OF OTHER DISEASES OF THE CIRCULATORY SYSTEM (8) Hyperlipidemia Current Visit: No Status: Chronic Assessment & Plan: -not on home meds -will check lipid in the a.m Code(s): E78.5 - HYPERLIPIDEMIA, UNSPECIFIED (9) Major depressive disorder Current Visit: No Status: Chronic Assessment & Plan: -continue home meds Code(s): F32.9 - MAJOR DEPRESSIVE DISORDER, SINGLE EPISODE, UNSPECIFIED (10) Type 2 diabetes mellitus Current Visit: No Status: Chronic Assessment & Plan: -A1c 7.19 -SSI -meal/glargine insulin -ADA diet -Discussed the importance of good glycemic control VTE: Xarelto PPI: protonix Dispo: 2-5 days Code(s): L03.90 - CELLULITIS, UNSPECIFIED (2) Ulcer of extremity due to chronic venous insufficiency Current Visit: No Status: Chronic Code(s): L98.499 - NON-PRESSURE CHRONIC ULCER OF SKIN OF SITES W UNSP SEVERITY; I87.2 - VENOUS INSUFFICIENCY (CHRONIC) (PERIPHERAL) (3) Cough Current Visit: Yes Status: Acute Code(s): R05.9 - COUGH, UNSPECIFIED (4) Wound of thigh Current Visit: Yes Status: Acute Code(s): S71.109A - UNSPECIFIED OPEN WOUND, UNSPECIFIED THIGH, INITIAL ENCOUNTER (5) Anemia Current Visit: No Status: Chronic Code(s): D64.9 - ANEMIA, UNSPECIFIED (6) HTN (hypertension) Current Visit: No Status: Chronic Code(s): I10 - ESSENTIAL (PRIMARY) HYPERTENSION (7) History of atrial fibrillation Current Visit: No Status: Chronic Code(s): Z86.79 - PERSONAL HISTORY OF OTHER DISEASES OF THE CIRCULATORY SYSTEM (8) Hyperlipidemia Current Visit: No Status: Chronic Code(s): E78.5 - HYPERLIPIDEMIA, UNSPECIFIED (9) Major depressive disorder Current Visit: No Status: Chronic Code(s): F32.9 - MAJOR DEPRESSIVE DISORDER, SINGLE EPISODE, UNSPECIFIED (10) Type 2 diabetes mellitus Current Visit: No Status: Chronic
[2024-11-03 05:20] LABS: Absolute Neutrophil Ct (ANC) 5.95 x10^3/uL (1.78-5.38); BASOPHIL % 0.3 % (0.2-1.2); Basophil (Absolute #) 0.02 x10^3/uL (0.01-0.08); Eosinophil % 4.7 % (0.8-7.0); Eosinophil (Absolute #) 0.36 x10^3/uL (0.04-0.54); Hematocrit 28.4 % (40.1-51.0); Hemoglobin 8.2 g/dL (13.7-17.5); IMMATURE GRAN # 0.02 x10^3u/L (0.001-0.031); IMMATURE GRAN % 0.3 % (0.001-0.429); Lymphocyte (Absolute #) 0.54 x10^3/uL (1.32-3.57); Lymphocytes % 7.1 % (21.8-53.1); Mean Cell Volume 67.6 fL (79.0-92.2); Mean Corpuscular Hemoglobin 19.5 pg (25.7-32.2); Mean Corpuscular Hgb Concent. 28.9 g/dL (32.3-36.5); Mean Platelet Volume 10.3 fL (9.4-12.4); Monocyte (Absolute #) 0.72 x10^3/uL (0.30-0.82); Monocytes % 9.5 % (5.3-12.2); Neutrophil % 78.1 % (34.0-67.9); Platelet Count 326 x10^3/uL (163-337); Red Cell Distribution Width 16.8 % (11.6-14.4); White Blood Count 7.6 x10^3/uL (4.23-9.07)
[2024-11-03 05:54] LABS: ALBUMIN 3.4 g/dL (3.5-5.0); ANION GAP 9.5 MEQ/L (5-15); BILIRUBIN,TOTAL 0.5 mg/dL (0.2-1.3); Calcium 8.3 mg/dL (8.4-10.2); Creatinine 1 0.78 mg/dL (0.66-1.25); EST GLOMERULAR FILTRATION RATE 102.1 ML/MIN; Total Protein 6.5 g/dL (6.3-8.2)
[2024-11-03] MEDS ORDERED: MEDICATION INTERVENTION MC SCH (07:30)
[2024-11-03] MEDS ORDERED: NON-FORMULARY ITEM (Insulin Lispro 1 UNIT Ml) SQ SCH ×3 (08:00→17:00)
[2024-11-03 08:15] LABS: Slide Review 1 YES
[2024-11-03] MEDS: Lantus Insulin SQ SCH (09:27)
[2024-11-03] MEDS: HUMALOG SQ SCH ×3 (09:27→18:22)
[2024-11-03] MEDS: Klor Con PO SCH (09:27)
[2024-11-03] MEDS: DEMADEX 20 MG PO SCH (09:27)
[2024-11-03] MEDS ORDERED: NON-FORMULARY ITEM (Atorvastatin Calcium [Atorvastatin Calcium] 20 MG Tablet) PO SCH (10:00)
--- NOTE | 2024-11-03 12:28 | PCM.CONS ---
Podiatry HPI - Consult Date of Consultation Date: 11/03/24 Reason for Consult: venous insufficency ulceration Consulting Provider: IMTIAZ LOMBARDO DPM - [facility] History of Present Illness: Follow-up 1 day postadmission for diuresis and cellulitis of bilateral lower extremity. Jeff reports that he is feeling much better today. Bilateral lower extremities with 3+ pitting edema to the level of the knee. Right lower extremity with multiple open wounds that are without purulent discharge or malodor. Left lower extremity with multiple open wounds that are without purulent discharge or malodor. Lateral aspect left lower extremity with sore that has mild drainage. Medications & Allergies Home Medications: Home Medication List Ergocalciferol (Vitamin D2) [Vitamin D2] 1,250 mcg PO WEEKLY 02/05/23 [History Confirmed 11/02/24] Metoprolol Tartrate 25 mg [Lopressor 25MG Tab] 25 mg PO BID 02/05/23 [History Confirmed 11/02/24] Insulin Glargine [Lantus Insulin] 66 unit SQ BID 10/18/23 [History Confirmed 11/02/24] Torsemide 20 mg [Demadex 20 mg] 20 mg PO BID 10/18/23 [History Confirmed 11/02/24] Potassium Chloride 10 meq PO BID 02/03/24 [History Confirmed 11/02/24] Atorvastatin Calcium 20 mg PO HS 06/12/24 [History Confirmed 11/02/24] Atorvastatin Calcium 40 mg PO DAILY 06/12/24 [History Confirmed 11/02/24] Rivaroxaban [Xarelto] 20 mg PO HS 06/12/24 [History Confirmed 11/02/24] Ropinirole HCl 0.5 mg [Requip 0.5 MG] 0.5 mg PO HS 06/12/24 [History Confirmed 11/02/24] Furosemide 20 mg [Lasix 20 mg] 20 mg PO BID 11/02/24 [History Confirmed 11/02/24] Insulin Lispro [Humalog] 14 unit SQ LUNCH 11/02/24 [History Confirmed 11/02/24] Insulin Lispro [Humalog] 24 unit SQ BREAKFAST 11/02/24 [History Confirmed 11/02/24] Insulin Lispro [Humalog] 26 unit SQ DINNER 11/02/24 [History Confirmed 11/02/24] Loperamide HCl 2 mg [Imodium 2 mg] 2 mg PO Q2H/PRN PRN 11/02/24 [History Confirmed 11/02/24] Allergies/Adverse Reactions: Allergies Allergy/AdvReac Type Severity Reaction Status Date / Time clindamycin Allergy Verified 11/02/24 13:55 Penicillins Allergy Verified 11/02/24 13:55 Sulfa (Sulfonamide Allergy Verified 11/02/24 13:55 Antibiotics) - Past Medical History Past Medical History: Yes Neurological History: Peripheral Neuropathy ENT History: No Pertinent History Cardiac History: Angina, Arrhythmia Respiratory History: No Pertinent History Endocrine Medical History: Diabetes Type II Musculoskelatal History: Osteoarthritis GI Medical History: No Pertinent History History: No Pertinent History Pyscho-Social History: No Pertinent History Male Reproductive Disorders: No Pertinent History Comment: HISTORY OF B LE WOUNDS, PARTIAL SEPTUS INVERTUS, RUPTURED L ROTATOR CUFF. - Past Surgical History Past Surgical History: Yes Neuro Surgical History: No Pertinent History Cardiac History: No Pertinent History Respiratory Surgery: No Pertinent History GI Surgical History: No Pertinent History Genitourinary Surgical Hx: No Pertinent History Musculskeletal Surgical Hx: No Pertinent History Male Surgical History: No Pertinent History Other Surgical History: PINWHEEL DRAIN IN BACK TO DRAIN FLUIDS_DONE BY [employer] MEZA 2021 Significant Family History: cancer - Social History Smoking Status: Never smoker Exposure to second hand smoke: No Alcohol: None Drug Use: none - Social Determinants of Health Will the patient participate in the screening: Yes Do you worry about a steady place to live?: Yes Do you have any problems with any of the following?: No known problems In the past 12 months,have you had to go without utilities?: No Have you or anyone in your house had to go without enough: Yes Transportation Issues: No Has anyone in your support network made you feel unsafe?: No Does the patient want assistance with any of the above?: No Physical Exam - Narrative Narrative Physical Exam: Laboratory studies reveals normal white blood cell count, mild anemia, elevated glucose at 151 with A1c 7.19, and pending culture results. Results - Labs Lab/Micro Results: Lab Results-Last 24 Hours 02/06/25 02/06/25 02/06/25 Range/Units 13:31 14:00 14:00 WBC 7.5 (4.23-9.07) x10^3/uL RBC 4.35 L (4.63-6.08) x10^6/uL Hgb 8.7 L (13.7-17.5) g/dL Hct 29.6 L (40.1-51.0) % MCV 68.0 L (79.0-92.2) fL MCH 20.0 L (25.7-32.2) pg MCHC 29.4 L (32.3-36.5) g/dL RDW 16.4 H (11.6-14.4) % Plt Count 308 (163-337) x10^3/uL MPV 9.3 L (9.4-12.4) fL Gran % 80.3 H (34.0-67.9) % Immature Gran % (Auto) 0.3 (0.001-0.429) % Nucleat RBC Rel Count 0.0 (0.00-0.2) % Eos # (Auto) 0.18 (0.04-0.54) x10^3/uL Immature Gran # (Auto) 0.02 (0.001-0.031) x10^3u/L Absolute Lymphs (auto) 0.63 L (1.32-3.57) x10^3/uL Absolute Monos (auto) 0.60 (0.30-0.82) x10^3/uL Absolute Nucleated RBC 0.00 (0.00-0.012) x10^3u/L Lymphocytes % 8.5 L (21.8-53.1) % Monocytes % 8.1 (5.3-12.2) % Eosinophils % 2.4 (0.8-7.0) % Basophils % 0.4 (0.2-1.2) % Absolute Granulocytes 5.99 H (1.78-5.38) x10^3/uL Basophils # 0.03 (0.01-0.08) x10^3/uL ESR (0-15) mm/hr Sodium 139 (135-145) mmol/L Potassium 4.5 (3.5-5.1) mmol/L Chloride 99 (98-107) mmol/L Carbon Dioxide 34 H (22-30) mmol/L Anion Gap 10.4 (5-15) MEQ/L BUN 12 (9-20) mg/dL Creatinine 0.72 (0.66-1.25) mg/dL Estimated GFR 104.6 ML/MIN Glucose 171 H (74-106) mg/dL Hemoglobin A1c (4.5-6.0) % Calcium 8.4 (8.4-10.2) mg/dL Total Bilirubin 0.60 (0.2-1.3) mg/dL AST 17 (17-59) U/L ALT 13 (0-50) U/L Alkaline Phosphatase 100 (38-126) U/L Serum Total Protein 6.9 (6.3-8.2) g/dL Albumin 3.7 (3.5-5.0) g/dL Triglycerides (30-150) mg/dL Cholesterol (50-200) mg/dL LDL Cholesterol (30-100) mg/dL HDL Cholesterol (40-60) mg/dL Heart Disease Risk Ratio Procalcitonin (0.030-0.080) ng/mL Urine Color (Yellow) Urine Appearance (Clear) Urine pH (4.6-8.0) Ur Specific Kathleen (1.005-1.030) Urine Protein (Negative) Urine Glucose (UA) (Negative) mg/dL Urine Ketones (Negative) Urine Blood (Negative) Urine Nitrite (Negative) Urine Bilirubin (Negative) Urine Urobilinogen (0.2) mg/dL Ur Leukocyte Esterase (Negative) U Hyaline Cast (Auto) (0-2) /LPF Urine Microscopic RBC (0-5) /HPF Urine Microscopic WBC (0-5) /HPF Ur Epithelial Cells (None Seen) /HPF Urine Bacteria (None Seen) /HPF Urine Culture Reflexed (NO) Influenza Type A Ag NEGATIVE (NEGATIVE) Influenza Type B Ag NEGATIVE (NEGATIVE) RSV (PCR) NEGATIVE (NEGATIVE) SARS-CoV-2 (PCR) NEGATIVE (NEGATIVE) Slides for Path Review 11/02/24 11/02/24 11/02/24 Range/Units 16:10 16:10 16:10 WBC (4.23-9.07) x10^3/uL RBC (4.63-6.08) x10^6/uL Hgb (13.7-17.5) g/dL Hct (40.1-51.0) % MCV (79.0-92.2) fL MCH (25.7-32.2) pg MCHC (32.3-36.5) g/dL RDW (11.6-14.4) % Plt Count (163-337) x10^3/uL MPV (9.4-12.4) fL Gran % (34.0-67.9) % Immature Gran % (Auto) (0.001-0.429) % Nucleat RBC Rel Count (0.00-0.2) % Eos # (Auto) (0.04-0.54) x10^3/uL Immature Gran # (Auto) (0.001-0.031) x10^3u/L Absolute Lymphs (auto) (1.32-3.57) x10^3/uL Absolute Monos (auto) (0.30-0.82) x10^3/uL Absolute Nucleated RBC (0.00-0.012) x10^3u/L Lymphocytes % (21.8-53.1) % Monocytes % (5.3-12.2) % Eosinophils % (0.8-7.0) % Basophils % (0.2-1.2) % Absolute Granulocytes (1.78-5.38) x10^3/uL Basophils # (0.01-0.08) x10^3/uL ESR 93 H (0-15) mm/hr Sodium (135-145) mmol/L Potassium (3.5-5.1) mmol/L Chloride (98-107) mmol/L Carbon Dioxide (22-30) mmol/L Anion Gap (5-15) MEQ/L BUN (9-20) mg/dL Creatinine (0.66-1.25) mg/dL Estimated GFR ML/MIN Glucose (74-106) mg/dL Hemoglobin A1c 7.19 H (4.5-6.0) % Calcium (8.4-10.2) mg/dL Total Bilirubin (0.2-1.3) mg/dL AST (17-59) U/L ALT (0-50) U/L Alkaline Phosphatase (38-126) U/L Serum Total Protein (6.3-8.2) g/dL Albumin (3.5-5.0) g/dL Triglycerides (30-150) mg/dL Cholesterol (50-200) mg/dL LDL Cholesterol (30-100) mg/dL HDL Cholesterol (40-60) mg/dL Heart Disease Risk Ratio Procalcitonin 0.061 (0.030-0.080) ng/mL Urine Color (Yellow) Urine Appearance (Clear) Urine pH (4.6-8.0) Ur Specific Kathleen (1.005-1.030) Urine Protein (Negative) Urine Glucose (UA) (Negative) mg/dL Urine Ketones (Negative) Urine Blood (Negative) Urine Nitrite (Negative) Urine Bilirubin (Negative) Urine Urobilinogen (0.2) mg/dL Ur Leukocyte Esterase (Negative) U Hyaline Cast (Auto) (0-2) /LPF Urine Microscopic RBC (0-5) /HPF Urine Microscopic WBC (0-5) /HPF Ur Epithelial Cells (None Seen) /HPF Urine Bacteria (None Seen) /HPF Urine Culture Reflexed (NO) Influenza Type A Ag (NEGATIVE) Influenza Type B Ag (NEGATIVE) RSV (PCR) (NEGATIVE) SARS-CoV-2 (PCR) (NEGATIVE) Slides for Path Review 11/02/24 11/03/24 11/03/24 Range/Units 17:30 05:12 05:12 WBC 7.6 (4.23-9.07) x10^3/uL RBC 4.20 L (4.63-6.08) x10^6/uL Hgb 8.2 L (13.7-17.5) g/dL Hct 28.4 L (40.1-51.0) % MCV 67.6 L (79.0-92.2) fL MCH 19.5 L (25.7-32.2) pg MCHC 28.9 L (32.3-36.5) g/dL RDW 16.8 H (11.6-14.4) % Plt Count 326 (163-337) x10^3/uL MPV 10.3 (9.4-12.4) fL Gran % 78.1 H (34.0-67.9) % Immature Gran % (Auto) 0.3 (0.001-0.429) % Nucleat RBC Rel Count 0.0 (0.00-0.2) % Eos # (Auto) 0.36 (0.04-0.54) x10^3/uL Immature Gran # (Auto) 0.02 (0.001-0.031) x10^3u/L Absolute Lymphs (auto) 0.54 L (1.32-3.57) x10^3/uL Absolute Monos (auto) 0.72 (0.30-0.82) x10^3/uL Absolute Nucleated RBC 0.00 (0.00-0.012) x10^3u/L Lymphocytes % 7.1 L (21.8-53.1) % Monocytes % 9.5 (5.3-12.2) % Eosinophils % 4.7 (0.8-7.0) % Basophils % 0.3 (0.2-1.2) % Absolute Granulocytes 5.95 H (1.78-5.38) x10^3/uL Basophils # 0.02 (0.01-0.08) x10^3/uL ESR (0-15) mm/hr Sodium 138 (135-145) mmol/L Potassium 4.0 (3.5-5.1) mmol/L Chloride 101 (98-107) mmol/L Carbon Dioxide 32 H (22-30) mmol/L Anion Gap 9.5 (5-15) MEQ/L BUN 12 (9-20) mg/dL Creatinine 0.78 (0.66-1.25) mg/dL Estimated GFR 102.1 ML/MIN Glucose 151 H (74-106) mg/dL Hemoglobin A1c (4.5-6.0) % Calcium 8.3 L (8.4-10.2) mg/dL Total Bilirubin 0.50 (0.2-1.3) mg/dL AST 15 L (17-59) U/L ALT 10 (0-50) U/L Alkaline Phosphatase 98 (38-126) U/L Serum Total Protein 6.5 (6.3-8.2) g/dL Albumin 3.4 L (3.5-5.0) g/dL Triglycerides (30-150) mg/dL Cholesterol (50-200) mg/dL LDL Cholesterol (30-100) mg/dL HDL Cholesterol (40-60) mg/dL Heart Disease Risk Ratio Procalcitonin (0.030-0.080) ng/mL Urine Color Yellow (Yellow) Urine Appearance Clear (Clear) Urine pH 8.5 A (4.6-8.0) Ur Specific Kathleen 1.020 (1.005-1.030) Urine Protein 30 (Negative) Urine Glucose (UA) Negative (Negative) mg/dL Urine Ketones Negative (Negative) Urine Blood Negative (Negative) Urine Nitrite Negative (Negative) Urine Bilirubin Negative (Negative) Urine Urobilinogen 1.0 A (0.2) mg/dL Ur Leukocyte Esterase Negative (Negative) U Hyaline Cast (Auto) NONE SEEN (0-2) /LPF Urine Microscopic RBC 3-5 (0-5) /HPF Urine Microscopic WBC 0-2 (0-5) /HPF Ur Epithelial Cells None Seen (None Seen) /HPF Urine Bacteria None Seen (None Seen) /HPF Urine Culture Reflexed NO (NO) Influenza Type A Ag (NEGATIVE) Influenza Type B Ag (NEGATIVE) RSV (PCR) (NEGATIVE) SARS-CoV-2 (PCR) (NEGATIVE) Slides for Path Review YES 11/03/24 Range/Units 05:12 WBC (4.23-9.07) x10^3/uL RBC (4.63-6.08) x10^6/uL Hgb (13.7-17.5) g/dL Hct (40.1-51.0) % MCV (79.0-92.2) fL MCH (25.7-32.2) pg MCHC (32.3-36.5) g/dL RDW (11.6-14.4) % Plt Count (163-337) x10^3/uL MPV (9.4-12.4) fL Gran % (34.0-67.9) % Immature Gran % (Auto) (0.001-0.429) % Nucleat RBC Rel Count (0.00-0.2) % Eos # (Auto) (0.04-0.54) x10^3/uL Immature Gran # (Auto) (0.001-0.031) x10^3u/L Absolute Lymphs (auto) (1.32-3.57) x10^3/uL Absolute Monos (auto) (0.30-0.82) x10^3/uL Absolute Nucleated RBC (0.00-0.012) x10^3u/L Lymphocytes % (21.8-53.1) % Monocytes % (5.3-12.2) % Eosinophils % (0.8-7.0) % Basophils % (0.2-1.2) % Absolute Granulocytes (1.78-5.38) x10^3/uL Basophils # (0.01-0.08) x10^3/uL ESR (0-15) mm/hr Sodium (135-145) mmol/L Potassium (3.5-5.1) mmol/L Chloride (98-107) mmol/L Carbon Dioxide (22-30) mmol/L Anion Gap (5-15) MEQ/L BUN (9-20) mg/dL Creatinine (0.66-1.25) mg/dL Estimated GFR ML/MIN Glucose (74-106) mg/dL Hemoglobin A1c (4.5-6.0) % Calcium (8.4-10.2) mg/dL Total Bilirubin (0.2-1.3) mg/dL AST (17-59) U/L ALT (0-50) U/L Alkaline Phosphatase (38-126) U/L Serum Total Protein (6.3-8.2) g/dL Albumin (3.5-5.0) g/dL Triglycerides 75 (30-150) mg/dL Cholesterol 101 (50-200) mg/dL LDL Cholesterol 76 (30-100) mg/dL HDL Cholesterol 30 L (40-60) mg/dL Heart Disease Risk Ratio 3.0 Procalcitonin (0.030-0.080) ng/mL Urine Color (Yellow) Urine Appearance (Clear) Urine pH (4.6-8.0) Ur Specific Kathleen (1.005-1.030) Urine Protein (Negative) Urine Glucose (UA) (Negative) mg/dL Urine Ketones (Negative) Urine Blood (Negative) Urine Nitrite (Negative) Urine Bilirubin (Negative) Urine Urobilinogen (0.2) mg/dL Ur Leukocyte Esterase (Negative) U Hyaline Cast (Auto) (0-2) /LPF Urine Microscopic RBC (0-5) /HPF Urine Microscopic WBC (0-5) /HPF Ur Epithelial Cells (None Seen) /HPF Urine Bacteria (None Seen) /HPF Urine Culture Reflexed (NO) Influenza Type A Ag (NEGATIVE) Influenza Type B Ag (NEGATIVE) RSV (PCR) (NEGATIVE) SARS-CoV-2 (PCR) (NEGATIVE) Slides for Path Review Accuchecks Date 11/03/24 Date 11/03/24 Date 11/02/24 Time 11:34 Time 07:16 Time 16:26 - Radiology Impressions Radiology Exams & Impressions: Radiology Procedures Category Date Time Status CHEST 1 VIEW (PORTABLE) Stat Exams 11/02/24 13:48 Completed LOWER EXTREMITY WITH CONTRAST [CT] Routine Exams 11/03/24 12:06 Ordered Assessment/Plan (1) Uncontrolled diabetes mellitus Current Visit: No Status: Chronic Qualifiers: Diabetes mellitus type: type 2 Glycemic state: with hyperglycemia Qualified Code(s): E11.65 - Type 2 diabetes mellitus with hyperglycemia Code(s): DMZ9888 - (2) Peripheral neuropathy Current Visit: No Status: Chronic Code(s): G62.9 - POLYNEUROPATHY, UNSPECIFIED (3) Poor social situation Current Visit: No Status: Acute Code(s): Z65.9 - PROBLEM RELATED TO UNSPECIFIED PSYCHOSOCIAL CIRCUMSTANCES (4) Muscular deconditioning Current Visit: No Status: Acute Code(s): R29.898 - OTH SYMPTOMS AND SIGNS INVOLVING THE MUSCULOSKELETAL SYSTEM (5) Atypical chest pain Current Visit: No Status: Acute Code(s): R07.89 - OTHER CHEST PAIN (6) Ulcer of extremity due to chronic venous insufficiency Current Visit: No Status: Chronic Assessment & Plan: Bilateral lower extremities dressed with iodine paint, Adaptic, 4 x 4, and Unna boots with moderate compression. Culture obtained of left lower extremity lateral aspect. Recommend continue compression therapy be using Unna boots in conjunction with diuresis. Code(s): L98.499 - NON-PRESSURE CHRONIC ULCER OF SKIN OF SITES W UNSP SEVERITY; I87.2 - VENOUS INSUFFICIENCY (CHRONIC) (PERIPHERAL) (7) Decubitus ulcer due to device Current Visit: No Status: Acute Code(s): T85.898A - OTH COMPLICATION OF OTHER INTERNAL PROSTH DEV/GRFT, INIT; L89.90 - PRESSURE ULCER OF UNSPECIFIED SITE, UNSPECIFIED STAGE (8) Unable to care for self Current Visit: No Status: Acute Code(s): Z78.9 - OTHER SPECIFIED HEALTH STATUS (9) Cellulitis Current Visit: Yes Status: Acute Code(s): L03.90 - CELLULITIS, UNSPECIFIED
[2024-11-03] MEDS: TROUGH DRUG LEVELS IJ ONE (16:40)
[2024-11-03] MEDS: Lopressor 25MG Tab PO SCH (16:40)
[2024-11-03] MEDS: Lasix 40 MG/4 ML IV SCH (18:22)
[2024-11-03] MEDS ORDERED: NON-FORMULARY ITEM (Rivaroxaban [Xarelto] 20 MG Tablet) PO SCH (22:00)
[2024-11-03] MEDS ORDERED: NON-FORMULARY ITEM (Atorvastatin Calcium [Atorvastatin Calcium] 10 MG Tablet) PO SCH (22:00)
[2024-11-03] MEDS: Requip 0.5 MG PO SCH (22:19)
[2024-11-03] MEDS: XARELTO 10 MG TABLET PO SCH (22:19)
[2024-11-03] MEDS: ZOCOR 20MG PO SCH (22:20)
--- NOTE | 2024-11-03 22:50 | XRAY ---
Indication: Right upper thigh wound. Multiple contiguous axial images obtained through the right upper leg to include hip and knee joint without contrast as ordered. Cutaneous BB placed over region of interest. Comparison: None Mid to distal leg, knee and the visualized proximal lower leg demonstrates diffuse cutaneous and subcutaneous soft tissue swelling/edema. Cutaneous BB seen posteriorly mid level where there is cutaneous soft tissue thickening/induration presumed inflammatory. No walled off fluid collection, abscess, or soft tissue emphysema. Just superior to this are enlarged subcutaneous venous varicosities up to 2 cm in diameter. Right groin demonstrates a few small benign-appearing lymph nodes. No pathologic lymphadenopathy. Mild diffuse scattered arteriosclerotic calcifications. Osseous structures intact without suspicious bony lesions or osseous destructive process. Knee demonstrates moderate tricompartmental degenerative arthropathy. Visualized pelvic contents are unremarkable. Impression: 1. Diffuse cutaneous and subcutaneous soft tissue swelling/edema. 2. Cutaneous thickening/induration corresponding to posterior "thigh wound"presumed inflammatory/infectious. No walled off fluid collection/abscess. 3. Large posterior subcutaneous venous varicosities. 4. Incidental right knee tricompartmental degenerative arthropathy and arteriosclerotic disease.
--- NOTE | 2024-11-04 05:12 | PCM.NOTE ---
Date and Time: 11/04/24 0511 Subjective Assessment: Mr. Hidalgo is a 59 year old male with a pmhx of peripheral neuropathy, AFIB(xarelto), DMII, and OA directly admitted 11/02/24 for worsening right upper thigh and BLE wounds. Patient is under the care of Dr. Moreno (podiatry). Patient also has complaints of fever, cough, congestion for the past three days with one episode of vomiting last night. Upon arrival temp noted at 100, otherwise stable vitals. Labs with anemia which appears chronic with a hgb of 8.7 otherwise unremarkable. Respiratory panel negative. Reviewed recent cultures with past infections of Staph aureus, MRSA, and enterococcus noted. Patient with multiple allergies. Admit for cellulitis and right upper thigh wound. Will start vanc/levaquin and obtain new cultures. Patient may need SNF placement on Discharge. Surgery consulted for right upper thigh wound- no surgical intervention recommendations- advised to continue antibiotics. 11/03/24: Met with patient bedside. Endorses improvement in cough and respiratory symptoms. Pain in BLE improved. Surgery consulted for right upper thigh wound- no surgical recommendations- advised continuation of abx. Will order CT of lower ext to evaluate for abscess. Plan to continue abx- patient to discharge to SNF when medically stable. Wound cultures pending. 11/04/24: No overnight events noted. Patient endorses improved cough. Some hoarseness today. Right upper thigh wound with less drainage. Wound culture with gram - ID. CT of lower ext without abscess. Plan for continued abx with levaquin/vanc until cultures return. Plan to dc to SNF once targeted abx confirmed. - Review of Systems Constitutional: No Symptoms Eyes: No Symptoms Ears, Nose, & Throat: Other (hoarseness) Respiratory: Cough Cardiac: No Symptoms Abdominal/Gastrointestinal: No Symptoms Genitourinary Symptoms: No Symptoms Musculoskeletal: No Symptoms Skin: Cellulitis, Skin Lesions (Right upper thigh) Neurological: No Symptoms Psychological: No Symptoms Endocrine: No Symptoms Hematologic/Lymphatic: No Symptoms Immunological/Allergic: No Symptoms Objective Exam General Appearance: no apparent distress Neurologic Exam: alert, oriented x 3, cooperative Skin Exam: other (BLE with multiple open wounds- covered in compression dressings - Right upper thigh wound with dressing - shadow drainage) Wound Assessment: Skin/Wound Assessment Wound/Incision Assessment Start: 02/06/25 13:59 Text: Status: Active Freq: Q6H Protocol: Document 11/03/24 20:00 MP (Rec: 11/04/24 00:43 MP [id number]) Wound/Incision Assessment Right Posterior Thigh Wound Assessment Shift Assessment Wound Type CELLULITUS Wound Stage Non Pressure Wound Surrounding Tissue Dark Red Primary Dressing 6X6 MEPILEX Comment DRESSING C/D/I Wound Photo Photo Taken No Eye Exam: PERRL Ears, Nose, Throat Exam: normal ENT inspection Neck Exam: normal inspection Lymphatic Exam: adenopathy Respiratory Exam: normal breath sounds, lungs clear Cardiovascular Exam: regular rate/rhythm, normal heart sounds Gastrointestinal/Abdomen Exam: soft, normal bowel sounds Extremity Exam: inflammation, swelling Back Exam: normal inspection Male Genitalia Exam: deferred Rectal Exam: deferred Objective Data Vital Signs: Vital Signs - 24 hr Temp Pulse Resp BP Pulse Ox 11/04/24 04:00 97.3 F 58 L 20 130/58 97 11/03/24 23:50 97.4 F 68 20 127/59 95 11/03/24 20:00 97.0 F 57 L 17 110/56 100 11/03/24 15:00 98.0 F 61 16 124/65 99 11/03/24 11:00 97.9 F 75 16 139/62 99 11/03/24 06:58 97.9 F 76 16 100/49 94 L Pain Assessment - Last Documented Pain Intensity 2 Pain Scale Used 0-10 Pain Scale Intake and Output: Intake & Output 11/01/24 11/02/24 11/03/24 11/04/24 11:59 11:59 11:59 11:59 Intake Total 1580 1727 Output Total 400 Balance 1180 1727 Weight 121.5 kg Lab Results: Lab Results-Last 24 Hours 11/03/24 11/03/24 11/03/24 Range/Units 05:12 05:12 05:12 WBC 7.6 (4.23-9.07) x10^3/uL RBC 4.20 L (4.63-6.08) x10^6/uL Hgb 8.2 L (13.7-17.5) g/dL Hct 28.4 L (40.1-51.0) % MCV 67.6 L (79.0-92.2) fL MCH 19.5 L (25.7-32.2) pg MCHC 28.9 L (32.3-36.5) g/dL RDW 16.8 H (11.6-14.4) % Plt Count 326 (163-337) x10^3/uL MPV 10.3 (9.4-12.4) fL Gran % 78.1 H (34.0-67.9) % Immature Gran % (Auto) 0.3 (0.001-0.429) % Nucleat RBC Rel Count 0.0 (0.00-0.2) % Eos # (Auto) 0.36 (0.04-0.54) x10^3/uL Immature Gran # (Auto) 0.02 (0.001-0.031) x10^3u/L Absolute Lymphs (auto) 0.54 L (1.32-3.57) x10^3/uL Absolute Monos (auto) 0.72 (0.30-0.82) x10^3/uL Absolute Nucleated RBC 0.00 (0.00-0.012) x10^3u/L Lymphocytes % 7.1 L (21.8-53.1) % Monocytes % 9.5 (5.3-12.2) % Eosinophils % 4.7 (0.8-7.0) % Basophils % 0.3 (0.2-1.2) % Absolute Granulocytes 5.95 H (1.78-5.38) x10^3/uL Basophils # 0.02 (0.01-0.08) x10^3/uL Sodium 138 (135-145) mmol/L Potassium 4.0 (3.5-5.1) mmol/L Chloride 101 (98-107) mmol/L Carbon Dioxide 32 H (22-30) mmol/L Anion Gap 9.5 (5-15) MEQ/L BUN 12 (9-20) mg/dL Creatinine 0.78 (0.66-1.25) mg/dL Estimated GFR 102.1 ML/MIN Glucose 151 H (74-106) mg/dL Calcium 8.3 L (8.4-10.2) mg/dL Total Bilirubin 0.50 (0.2-1.3) mg/dL AST 15 L (17-59) U/L ALT 10 (0-50) U/L Alkaline Phosphatase 98 (38-126) U/L Serum Total Protein 6.5 (6.3-8.2) g/dL Albumin 3.4 L (3.5-5.0) g/dL Triglycerides 75 (30-150) mg/dL Cholesterol 101 (50-200) mg/dL LDL Cholesterol 76 (30-100) mg/dL HDL Cholesterol 30 L (40-60) mg/dL Heart Disease Risk Ratio 3.0 Vancomycin Trough (10-20) ug/mL Slides for Path Review YES 11/03/24 Range/Units 13:39 WBC (4.23-9.07) x10^3/uL RBC (4.63-6.08) x10^6/uL Hgb (13.7-17.5) g/dL Hct (40.1-51.0) % MCV (79.0-92.2) fL MCH (25.7-32.2) pg MCHC (32.3-36.5) g/dL RDW (11.6-14.4) % Plt Count (163-337) x10^3/uL MPV (9.4-12.4) fL Gran % (34.0-67.9) % Immature Gran % (Auto) (0.001-0.429) % Nucleat RBC Rel Count (0.00-0.2) % Eos # (Auto) (0.04-0.54) x10^3/uL Immature Gran # (Auto) (0.001-0.031) x10^3u/L Absolute Lymphs (auto) (1.32-3.57) x10^3/uL Absolute Monos (auto) (0.30-0.82) x10^3/uL Absolute Nucleated RBC (0.00-0.012) x10^3u/L Lymphocytes % (21.8-53.1) % Monocytes % (5.3-12.2) % Eosinophils % (0.8-7.0) % Basophils % (0.2-1.2) % Absolute Granulocytes (1.78-5.38) x10^3/uL Basophils # (0.01-0.08) x10^3/uL Sodium (135-145) mmol/L Potassium (3.5-5.1) mmol/L Chloride (98-107) mmol/L Carbon Dioxide (22-30) mmol/L Anion Gap (5-15) MEQ/L BUN (9-20) mg/dL Creatinine (0.66-1.25) mg/dL Estimated GFR ML/MIN Glucose (74-106) mg/dL Calcium (8.4-10.2) mg/dL Total Bilirubin (0.2-1.3) mg/dL AST (17-59) U/L ALT (0-50) U/L Alkaline Phosphatase (38-126) U/L Serum Total Protein (6.3-8.2) g/dL Albumin (3.5-5.0) g/dL Triglycerides (30-150) mg/dL Cholesterol (50-200) mg/dL LDL Cholesterol (30-100) mg/dL HDL Cholesterol (40-60) mg/dL Heart Disease Risk Ratio Vancomycin Trough 14.47 (10-20) ug/mL Slides for Path Review Radiology Exams: Radiology Procedures Category Date Time Status CHEST 1 VIEW (PORTABLE) Stat Exams 11/02/24 13:48 Completed LOWER EXTREMITY WITH CONTRAST [CT] Routine Exams 11/03/24 12:06 Completed Multi-Disciplinary Progress Notes: Multi-Disciplinary Progress Notes 11/03/24 13:03 Case Management Note by Jud Kurtz CAME AND MET WITH PATIENT- HE WOULD LIKE TO GO THERE [facility] [place] IF APPROVED [facility] ([facility]) REPORTS THEY WILL WORK WITH PATIENT TO GET VEHICLE MOVED OVER TO [facility]. S/W KYA IN MAINTENANCE- HE WAS NOTIFIED OF PATIENT'S VEHICLE IN [facility] AND PLANS TO HAVE IT MOVED EVENTUALLY. HE VERIFIED UNDERSTANDING REFERRAL FAXED TO [facility] AND LOC PENDING Initialized on 11/03/24 13:03 - END OF NOTE Assessment/Plan (1) Cellulitis Current Visit: Yes Status: Acute Assessment & Plan: -Consult podiatry - follows with Dr. Moreno -Vanc/levaquin -CBC reviewed, WBC wnl -CRP, ESR -Wound cultures to RLE, LLE, and right upper thigh -Jose Juan borders -[place], PCT 11/03/24: -WBC reviewed at 7.6 WNL 11/04: -WBC reviewed and WNL at 8.7 -Wound culture with gram - ID - pending sensitivity -Continue vanc/levaquin - follow cultures -dressing changes per podiatry Code(s): L03.90 - CELLULITIS, UNSPECIFIED (2) Ulcer of extremity due to chronic venous insufficiency Current Visit: No Status: Chronic Assessment & Plan: -see cellulitis Code(s): L98.499 - NON-PRESSURE CHRONIC ULCER OF SKIN OF SITES W UNSP SEVERITY; I87.2 - VENOUS INSUFFICIENCY (CHRONIC) (PERIPHERAL) (3) Cough Current Visit: Yes Status: Acute Assessment & Plan: -WBC reviewed and WNL -Resp panel negative for flu/covid/rsv -CXR pending -vanc/levaquin started -Robitussin Code(s): R05.9 - COUGH, UNSPECIFIED (4) Wound of thigh Current Visit: Yes Status: Acute Assessment & Plan: -Surgery consulted - appreciate recs -consulted in the past and at that time no recommendations for surgical intervention -worsening -vanc/levaquin started -culture 11/03/24: -Surgery team evaluated patient - no surgical intervention needed - advised continuation of abx -CT LE ordered to r/o abscess -Continue vanc/levaquin - follow cultures 11/04: -CT LE with no abscess -continue vanc/levaquin/pain control Code(s): S71.109A - UNSPECIFIED OPEN WOUND, UNSPECIFIED THIGH, INITIAL ENCOUNTER (5) Anemia Current Visit: No Status: Chronic Assessment & Plan: -Chronic -Hgb stable at 8.7 -Monitor and replace if hgb < 7 -continue ferrous sulfate 11/03/24: -Hgb reviewed and remains stable at 8.2 11/04: -Hgb reviewed and stable at 9.4 Code(s): D64.9 - ANEMIA, UNSPECIFIED (6) HTN (hypertension) Current Visit: No Status: Chronic Assessment & Plan: -stable continue home meds Code(s): I10 - ESSENTIAL (PRIMARY) HYPERTENSION (7) History of atrial fibrillation Current Visit: No Status: Chronic Assessment & Plan: -Xarelto - continue -tele Code(s): Z86.79 - PERSONAL HISTORY OF OTHER DISEASES OF THE CIRCULATORY SYSTEM (8) Hyperlipidemia Current Visit: No Status: Chronic Assessment & Plan: -not on home meds -will check lipid in the a.m Code(s): E78.5 - HYPERLIPIDEMIA, UNSPECIFIED (9) Major depressive disorder Current Visit: No Status: Chronic Assessment & Plan: -continue home meds Code(s): F32.9 - MAJOR DEPRESSIVE DISORDER, SINGLE EPISODE, UNSPECIFIED (10) Type 2 diabetes mellitus Current Visit: No Status: Chronic Assessment & Plan: -A1c 7.19 -SSI -meal/glargine insulin -ADA diet -Discussed the importance of good glycemic control VTE: Xarelto PPI: protonix Dispo: 2-5 days Code(s): L03.90 - CELLULITIS, UNSPECIFIED (2) Ulcer of extremity due to chronic venous insufficiency Current Visit: No Status: Chronic Code(s): L98.499 - NON-PRESSURE CHRONIC ULCER OF SKIN OF SITES W UNSP SEVERITY; I87.2 - VENOUS INSUFFICIENCY (CHRONIC) (PERIPHERAL) (3) Cough Current Visit: Yes Status: Acute Code(s): R05.9 - COUGH, UNSPECIFIED (4) Wound of thigh Current Visit: Yes Status: Acute Code(s): S71.109A - UNSPECIFIED OPEN WOUND, UNSPECIFIED THIGH, INITIAL ENCOUNTER (5) Anemia Current Visit: No Status: Chronic Code(s): D64.9 - ANEMIA, UNSPECIFIED (6) HTN (hypertension) Current Visit: No Status: Chronic Code(s): I10 - ESSENTIAL (PRIMARY) HYPERTENSION (7) History of atrial fibrillation Current Visit: No Status: Chronic Code(s): Z86.79 - PERSONAL HISTORY OF OTH ER DISEASES OF THE CIRCULATORY SYSTEM (8) Hyperlipidemia Current Visit: No Status: Chronic Code(s): E78.5 - HYPERLIPIDEMIA, UNSPECIFIED (9) Major depressive disorder Current Visit: No Status: Chronic Code(s): F32.9 - MAJOR DEPRESSIVE DISORDER, SINGLE EPISODE, UNSPECIFIED (10) Type 2 diabetes mellitus Current Visit: No Status: Chronic
[2024-11-04 05:53] LABS: BASOPHIL % 0.7 % (0.2-1.2); Basophil (Absolute #) 0.06 x10^3/uL (0.01-0.08); Eosinophil % 6.1 % (0.8-7.0); Eosinophil (Absolute #) 0.53 x10^3/uL (0.04-0.54); Hematocrit 33.4 % (40.1-51.0); Hemoglobin 9.4 g/dL (13.7-17.5); IMMATURE GRAN # 0.03 x10^3u/L (0.001-0.031); IMMATURE GRAN % 0.3 % (0.001-0.429); Lymphocytes % 10.4 % (21.8-53.1); Mean Cell Volume 69.2 fL (79.0-92.2); Mean Corpuscular Hemoglobin 19.5 pg (25.7-32.2); Mean Corpuscular Hgb Concent. 28.1 g/dL (32.3-36.5); Mean Platelet Volume 10.1 fL (9.4-12.4); Monocyte (Absolute #) 0.73 x10^3/uL (0.30-0.82); Monocytes % 8.4 % (5.3-12.2); Neutrophil % 74.1 % (34.0-67.9); Platelet Count 374 x10^3/uL (163-337); Red Blood Count 4.83 x10^6/uL (4.63-6.08); Red Cell Distribution Width 16.7 % (11.6-14.4); White Blood Count 8.7 x10^3/uL (4.23-9.07)
[2024-11-04 06:14] LABS: ALBUMIN 4.1 g/dL (3.5-5.0); ANION GAP 12.6 MEQ/L (5-15); BILIRUBIN,TOTAL 0.4 mg/dL (0.2-1.3); Calcium 8.7 mg/dL (8.4-10.2); Creatinine 1 0.9 mg/dL (0.66-1.25); EST GLOMERULAR FILTRATION RATE 97.8 ML/MIN; Potassium 4.6 mmol/L (3.5-5.1); Total Protein 7.6 g/dL (6.3-8.2)
[2024-11-04 07:19] LABS: Slide Review 1 YES
[2024-11-04] MEDS ORDERED: LEVOFLOXACIN 750MG/150ML D5W 750 MG/150 ML BAG IV ONE (17:56)
--- NOTE | 2024-11-05 05:05 | PCM.NOTE ---
Date and Time: 11/05/24 6899 Subjective Assessment: Mr. Hidalgo is a 59 year old male with a pmhx of peripheral neuropathy, AFIB(xarelto), DMII, and OA directly admitted 11/02/24 for worsening right upper thigh and BLE wounds. Patient is under the care of Dr. Moreno (podiatry). Patient also has complaints of fever, cough, congestion for the past three days with one episode of vomiting last night. Upon arrival temp noted at 100, otherwise stable vitals. Labs with anemia which appears chronic with a hgb of 8.7 otherwise unremarkable. Respiratory panel negative. Reviewed recent cultures with past infections of Staph aureus, MRSA, and enterococcus noted. Patient with multiple allergies. Admit for cellulitis and right upper thigh wound. Will start vanc/levaquin and obtain new cultures. Patient may need SNF placement on Discharge. Surgery consulted for right upper thigh wound- no surgical intervention recommendations- advised to continue antibiotics. 11/03/24: Met with patient bedside. Endorses improvement in cough and respiratory symptoms. Pain in BLE improved. Surgery consulted for right upper thigh wound- no surgical recommendations- advised continuation of abx. Will order CT of lower ext to evaluate for abscess. Plan to continue abx- patient to discharge to SNF when medically stable. Wound cultures pending. 11/04/24: No overnight events noted. Patient endorses improved cough. Some hoarseness today. Right upper thigh wound with less drainage. Wound culture with gram - ID. CT of lower ext without abscess. Plan for continued abx with levaquin/vanc until cultures return. Plan to dc to SNF once targeted abx confirmed. 11/05/24: Met with patient bedside. Pain in BLE and edema have improved. Discussed wound cultures showing stap aureus and psuedomonas. Will continue patient on Levaquin. Discontinue Vanc. Plan to send to SNF tomorrow. Podiatry following. Denies fever, sob, cp, abdominal pain, MCGUIRE, dizziness, N/V/D. - Review of Systems Constitutional: No Symptoms Eyes: No Symptoms Ears, Nose, & Throat: No Symptoms Respiratory: Cough Cardiac: No Symptoms Abdominal/Gastrointestinal: No Symptoms Genitourinary Symptoms: No Symptoms Musculoskeletal: Back Pain Skin: Cellulitis, Decubiti, Skin Lesions Neurological: No Symptoms Psychological: No Symptoms Endocrine: No Symptoms Hematologic/Lymphatic: Anemia Immunological/Allergic: No Symptoms Objective Exam General Appearance: no apparent distress Neurologic Exam: alert, oriented x 3, cooperative Skin Exam: other (see wound assessment BLE covered with unna boots RU thigh with dressing/shadow drainage noted.) Wound Assessment: Skin/Wound Assessment Wound/Incision Assessment Start: 11/02/24 13:59 Text: Status: Active Freq: Q6H Protocol: Document 11/05/24 02:00 MP (Rec: 11/05/24 02:57 MP [id number]) Wound/Incision Assessment Right Posterior Thigh Wound Assessment Shift Assessment Wound Type CELLULITUS Wound Stage Non Pressure Wound Dressing Status Changed Drainage Amount Moderate Drainage Description Sanguineous Surrounding Tissue Dark Red Primary Dressing 6X6 MEPILEX Comment dressing changed, cleansed with saline covered with mepilex and barrier cream applied around Wound Photo Photo Taken No Eye Exam: PERRL Ears, Nose, Throat Exam: normal ENT inspection Neck Exam: normal inspection Respiratory Exam: normal breath sounds, lungs clear Cardiovascular Exam: regular rate/rhythm, normal heart sounds Gastrointestinal/Abdomen Exam: soft, normal bowel sounds Extremity Exam: inflammation, swelling Back Exam: normal inspection Male Genitalia Exam: deferred Rectal Exam: deferred Objective Data Vital Signs: Vital Signs - 24 hr Temp Pulse Resp BP Pulse Ox 11/04/24 23:45 97.3 F 55 L 18 93/54 97 11/04/24 19:08 97.5 F 55 L 18 109/53 99 11/04/24 15:59 96.4 F 56 L 18 118/56 100 11/04/24 11:58 97.0 F 55 L 18 105/54 99 11/04/24 07:04 96.3 F 57 L 20 112/56 98 Pain Assessment - Last Documented Pain Intensity 2 Pain Scale Used 0-10 Pain Scale Intake and Output: Intake & Output 11/02/24 11/03/24 11/04/24 11/05/24 11:59 11:59 11:59 11:59 Intake Total 1580 1967 1291 Output Total 400 Balance 1180 1967 1291 Weight 121.5 kg 119.7 kg Lab Results: Lab Results-Last 24 Hours 11/02/24 11/04/24 11/04/24 Range/Units 16:10 05:27 05:27 WBC 8.7 (4.23-9.07) x10^3/uL RBC 4.83 (4.63-6.08) x10^6/uL Hgb 9.4 L (13.7-17.5) g/dL Hct 33.4 L (40.1-51.0) % MCV 69.2 L (79.0-92.2) fL MCH 19.5 L (25.7-32.2) pg MCHC 28.1 L (32.3-36.5) g/dL RDW 16.7 H (11.6-14.4) % Plt Count 374 H (163-337) x10^3/uL MPV 10.1 (9.4-12.4) fL Gran % 74.1 H (34.0-67.9) % Immature Gran % (Auto) 0.3 (0.001-0.429) % Nucleat RBC Rel Count 0.0 (0.00-0.2) % Eos # (Auto) 0.53 (0.04-0.54) x10^3/uL Immature Gran # (Auto) 0.03 (0.001-0.031) x10^3u/L Absolute Lymphs (auto) 0.90 L (1.32-3.57) x10^3/uL Absolute Monos (auto) 0.73 (0.30-0.82) x10^3/uL Absolute Nucleated RBC 0.00 (0.00-0.012) x10^3u/L Lymphocytes % 10.4 L (21.8-53.1) % Monocytes % 8.4 (5.3-12.2) % Eosinophils % 6.1 (0.8-7.0) % Basophils % 0.7 (0.2-1.2) % Absolute Granulocytes 6.40 H (1.78-5.38) x10^3/uL Basophils # 0.06 (0.01-0.08) x10^3/uL Sodium 141 (135-145) mmol/L Potassium 4.6 (3.5-5.1) mmol/L Chloride 101 (98-107) mmol/L Carbon Dioxide 32 H (22-30) mmol/L Anion Gap 12.6 (5-15) MEQ/L BUN 19 (9-20) mg/dL Creatinine 0.90 (0.66-1.25) mg/dL Estimated GFR 97.8 ML/MIN Glucose 137 H (74-106) mg/dL Calcium 8.7 (8.4-10.2) mg/dL Total Bilirubin 0.40 (0.2-1.3) mg/dL AST 17 (17-59) U/L ALT 12 (0-50) U/L Alkaline Phosphatase 97 (38-126) U/L C-Reactive Prot, Quant 49 H (0-10) mg/L Serum Total Protein 7.6 (6.3-8.2) g/dL Albumin 4.1 (3.5-5.0) g/dL Slides for Path Review YES Radiology Exams: Radiology Procedures Category Date Time Status LOWER EXTREMITY WITH CONTRAST [CT] Routine Exams 11/03/24 12:06 Completed Assessment/Plan (1) Cellulitis Current Visit: Yes Status: Acute Assessment & Plan: -Consult podiatry - follows with Dr. Moreno -Vanc/levaquin -CBC reviewed, WBC wnl -CRP, ESR -Wound cultures to RLE, LLE, and right upper thigh -Jose Juan borders -[place], PCT 11/03/24: -WBC reviewed at 7.6 WNL 11/04: -WBC reviewed and WNL at 8.7 -Wound culture with gram - ID - pending sensitivity -Continue vanc/levaquin - follow cultures -dressing changes per podiatry 11/05: -Wound culture to left lateral leg with staph Aeurus - listed as final result. Wound culture to right upper thigh with pseudomonas/stap aureu - all sensitive to levaquin - will dc vanc and continue levaquin -Dressing changes per podiatry -WBC reviewed at 8.2 Code(s): L03.90 - CELLULITIS, UNSPECIFIED (2) Ulcer of extremity due to chronic venous insufficiency Current Visit: No Status: Chronic Assessment & Plan: -see cellulitis Code(s): L98.499 - NON-PRESSURE CHRONIC ULCER OF SKIN OF SITES W UNSP SEVERITY; I87.2 - VENOUS INSUFFICIENCY (CHRONIC) (PERIPHERAL) (3) Cough Current Visit: Yes Status: Acute Assessment & Plan: -WBC reviewed and WNL -Improved -Resp panel negative for flu/covid/rsv -CXR with no acute findings -vanc/levaquin started - continue with levaquin based on wound culture results -Robitussin Code(s): R05.9 - COUGH, UNSPECIFIED (4) Wound of thigh Current Visit: Yes Status: Acute Assessment & Plan: -Surgery consulted - appreciate recs -consulted in the past and at that time no recommendations for surgical intervention -worsening -vanc/levaquin started -culture 11/03/24: -Surgery team evaluated patient - no surgical intervention needed - advised continuation of abx -CT LE ordered to r/o abscess -Continue vanc/levaquin - follow cultures 11/04: -CT LE with no abscess -continue vanc/levaquin/pain control 11/05: -Cultures as stated above - see plan for cellulitis Code(s): S71.109A - UNSPECIFIED OPEN WOUND, UNSPECIFIED THIGH, INITIAL ENCOUNTER (5) Anemia Current Visit: No Status: Chronic Assessment & Plan: -Chronic -Hgb stable at 8.7 -Monitor and replace if hgb < 7 -continue ferrous sulfate 11/03/24: -Hgb reviewed and remains stable at 8.2 11/04: -Hgb reviewed and stable at 9.4 11/05: -Hgb stable at 9.4 Code(s): D64.9 - ANEMIA, UNSPECIFIED (6) HTN (hypertension) Current Visit: No Status: Chronic Assessment & Plan: -stable continue home meds Code(s): I10 - ESSENTIAL (PRIMARY) HYPERTENSION (7) History of atrial fibrillation Current Visit: No Status: Chronic Assessment & Plan: -Xarelto - continue -tele Code(s): Z86.79 - PERSONAL HISTORY OF OTHER DISEASES OF THE CIRCULATORY SYSTEM (8) Hyperlipidemia Current Visit: No Status: Chronic Assessment & Plan: -not on home meds -will check lipid in the a.m Code(s): E78.5 - HYPERLIPIDEMIA, UNSPECIFIED (9) Major depressive disorder Current Visit: No Status: Chronic Assessment & Plan: -continue home meds Code(s): F32.9 - MAJOR DEPRESSIVE DISORDER, SINGLE EPISODE, UNSPECIFIED (10) Type 2 diabetes mellitus Current Visit: No Status: Chronic Assessment & Plan: -A1c 7.19 -SSI -meal/glargine insulin -ADA diet -Discussed the importance of good glycemic control VTE: Xarelto PPI: protonix Dispo: 2-5 days Code(s): L03.90 - CELLULITIS, UNSPECIFIED (2) Ulcer of extremity due to chronic venous insufficiency Current Visit: No Status: Chronic Code(s): L98.499 - NON-PRESSURE CHRONIC ULCER OF SKIN OF SITES W UNSP SEVERITY; I87.2 - VENOUS INSUFFICIENCY (CHRONIC) (PERIPHERAL) (3) Cough Current Visit: Yes Status: Acute Code(s): R05.9 - COUGH, UNSPECIFIED (4) Wound of thigh Current Visit: Yes Status: Acute Code(s): S71.109A - UNSPECIFIED OPEN WOUND, UNSPECIFIED THIGH, INITIAL ENCOUNTER (5) Anemia Current Visit: No Status: Chronic Code(s): D64.9 - ANEMIA, UNSPECIFIED (6) HTN (hypertension) Current Visit: No Status: Chronic Code(s): I10 - ESSENTIAL (PRIMARY) HYPERTENSION (7) History of atrial fibrillation Current Visit: No Status: Chronic Code(s): Z86.79 - PERSONAL HISTORY OF O THER DISEASES OF THE CIRCULATORY SYSTEM (8) Hyperlipidemia Current Visit: No Status: Chronic Code(s): E78.5 - HYPERLIPIDEMIA, UNSPECIFIED (9) Major depressive disorder Current Visit: No Status: Chronic Code(s): F32.9 - MAJOR DEPRESSIVE DISORDER, SINGLE EPISODE, UNSPECIFIED (10) Type 2 diabetes mellitus Current Visit: No Status: Chronic
[2024-11-05] MEDS ORDERED: VANCOMYCIN 1 GRAM/200 ML BAG 1 GM/200 ML PIGGYBACK IV ONE (05:28)
[2024-11-05 05:30] LABS: Absolute Neutrophil Ct (ANC) 5.98 x10^3/uL (1.78-5.38); BASOPHIL % 0.5 % (0.2-1.2); Basophil (Absolute #) 0.04 x10^3/uL (0.01-0.08); Eosinophil % 7.6 % (0.8-7.0); Eosinophil (Absolute #) 0.62 x10^3/uL (0.04-0.54); Hematocrit 33.3 % (40.1-51.0); Hemoglobin 9.4 g/dL (13.7-17.5); IMMATURE GRAN # 0.03 x10^3u/L (0.001-0.031); IMMATURE GRAN % 0.4 % (0.001-0.429); Lymphocyte (Absolute #) 0.97 x10^3/uL (1.32-3.57); Lymphocytes % 11.8 % (21.8-53.1); Mean Cell Volume 68.2 fL (79.0-92.2); Mean Corpuscular Hemoglobin 19.3 pg (25.7-32.2); Mean Corpuscular Hgb Concent. 28.2 g/dL (32.3-36.5); Mean Platelet Volume 9.8 fL (9.4-12.4); Monocyte (Absolute #) 0.57 x10^3/uL (0.30-0.82); Monocytes % 6.9 % (5.3-12.2); Neutrophil % 72.8 % (34.0-67.9); Platelet Count 410 x10^3/uL (163-337); Red Blood Count 4.88 x10^6/uL (4.63-6.08); Red Cell Distribution Width 16.8 % (11.6-14.4); White Blood Count 8.2 x10^3/uL (4.23-9.07)
[2024-11-05 05:57] LABS: ALBUMIN 4.2 g/dL (3.5-5.0); ANION GAP 13.1 MEQ/L (5-15); BILIRUBIN,TOTAL 0.3 mg/dL (0.2-1.3); Calcium 8.8 mg/dL (8.4-10.2); Creatinine 1 0.96 mg/dL (0.66-1.25); EST GLOMERULAR FILTRATION RATE 90.5 ML/MIN; Potassium 4.3 mmol/L (3.5-5.1); Total Protein 7.7 g/dL (6.3-8.2)
[2024-11-05 08:34] LABS: Slide Review 1 YES
[2024-11-05] MEDS: VITAMIN D2 PO SCH (09:11)
[2024-11-05] MEDS: VANCOCIN INJECTION*** 1 GM in Sodium Chloride 0.9% 250 ML 250 ML IV SCH (15:24)
[2024-11-05] MEDS: Levofloxacin 250MG Tablet PO SCH (15:25)
[2024-11-05] MEDS: Levofloxacin 500 MG Tablet PO SCH (15:25)
[2024-11-06 04:33] LABS: BASOPHIL % 0.4 % (0.2-1.2); Basophil (Absolute #) 0.03 x10^3/uL (0.01-0.08); Eosinophil % 6.8 % (0.8-7.0); Eosinophil (Absolute #) 0.54 x10^3/uL (0.04-0.54); Hemoglobin 9.3 g/dL (13.7-17.5); IMMATURE GRAN # 0.03 x10^3u/L (0.001-0.031); IMMATURE GRAN % 0.4 % (0.001-0.429); Lymphocyte (Absolute #) 0.97 x10^3/uL (1.32-3.57); Lymphocytes % 12.2 % (21.8-53.1); Mean Cell Volume 68.2 fL (79.0-92.2); Mean Corpuscular Hemoglobin 19.2 pg (25.7-32.2); Mean Corpuscular Hgb Concent. 28.2 g/dL (32.3-36.5); Mean Platelet Volume 9.4 fL (9.4-12.4); Monocyte (Absolute #) 0.59 x10^3/uL (0.30-0.82); Monocytes % 7.4 % (5.3-12.2); Neutrophil % 72.8 % (34.0-67.9); Platelet Count 417 x10^3/uL (163-337); Red Blood Count 4.84 x10^6/uL (4.63-6.08); Red Cell Distribution Width 16.8 % (11.6-14.4)
[2024-11-06 04:48] LABS: ALBUMIN 4.1 g/dL (3.5-5.0); ANION GAP 10.6 MEQ/L (5-15); BILIRUBIN,TOTAL 0.3 mg/dL (0.2-1.3); Calcium 8.9 mg/dL (8.4-10.2); Creatinine 1 0.97 mg/dL (0.66-1.25); EST GLOMERULAR FILTRATION RATE 89.4 ML/MIN; Potassium 4.2 mmol/L (3.5-5.1); Total Protein 7.7 g/dL (6.3-8.2)
--- NOTE | 2024-11-06 09:03 | PCM.DS ---
Discharge Summary Date of Admission: 11/02/24 13:05 Date of Discharge: 11/06/24 Admitting Physician: AISLINN WATSON MD Consults: Consults on Case 11/02/24 14:16 Consult Surgery ROUTINE 11/02/24 14:30 Consult Podiatry ROUTINE Primary Care Provider: MARCELLO CHERRY Allergies Allergies clindamycin Allergy (Verified 11/02/24 13:55) Penicillins Allergy (Verified 11/02/24 13:55) Sulfa (Sulfonamide Antibiotics) Allergy (Verified 11/02/24 13:55) Hospital Summary - Hospital Course Hospital Course: Mr. Hidalgo is a 59 year old male with a pmhx of peripheral neuropathy, AFIB (xarelto), DMII, and OA. He was directly admitted 11/02/24 for worsening right upper thigh and BLE wounds. Patient is under the care of Dr. Moreno (podiatry). Patient also has complaints of fever, cough, congestion for the past three days with one episode of vomiting last night. Upon arrival temp noted at 100, otherwi se stable vitals. Labs with anemia which appears chronic with a hgb of 8.7 otherwise unremarkable. Respiratory panel negative. Reviewed recent cultures with past infections of Staph aureus, MRSA, and enterococcus noted. Patient with multiple allergies. Admit for cellulitis and right upper thigh wound. Started vanc/levaquin and obtain new cultures. Pt wants SNF/ rehab placement for continued wound care needs. Surgery consulted for right upper thigh wound- no surgical intervention recommendations- advised to continue antibiotics. Wound cultures showing staph aureus and psuedomonas. D/C Antibiotics changed to cipro and minocycline per pharmacy recs. Podiatry following. Denies fever, SOB, cp, a bdominal pain, MCGUIRE, dizziness, N/V/D. - Vitals & Intake/Output Vital Signs: Vital Signs Temperature 97.9 F 11/06/24 07:20 Pulse Rate 62 11/06/24 07:20 Respiratory Rate 18 11/06/24 07:20 Blood Pressure 113/56 11/06/24 07:20 O2 Sat by Pulse Oximetry 97 11/06/24 07:20 Intake & Output: Intake & Output 11/03/24 11/04/24 11/05/24 11/06/24 11:59 11:59 11:59 11:59 Intake Total 1580 1967 2271 115 Output Total 400 Balance 1179 1966 2270 115 Weight 121.5 kg 119.7 kg 118 kg - Lab Result Diagrams: 11/06/24 04:20 11/06/24 04:20 Lab Results-Last 24 Hrs: Lab Results-Last 24 Hours 11/06/24 11/06/24 Range/Units 04:20 04:20 WBC 8.0 (4.23-9.07) x10^3/uL RBC 4.84 (4.63-6.08) x10^6/uL Hgb 9.3 L (13.7-17.5) g/dL Hct 33.0 L (40.1-51.0) % MCV 68.2 L (79.0-92.2) fL MCH 19.2 L (25.7-32.2) pg MCHC 28.2 L (32.3-36.5) g/dL RDW 16.8 H (11.6-14.4) % Plt Count 417 H (163-337) x10^3/uL MPV 9.4 (9.4-12.4) fL Gran % 72.8 H (34.0-67.9) % Immature Gran % (Auto) 0.4 (0.001-0.429) % Nucleat RBC Rel Count 0.0 (0.00-0.2) % Eos # (Auto) 0.54 (0.04-0.54) x10^3/uL Immature Gran # (Auto) 0.03 (0.001-0.031) x10^3u/L Absolute Lymphs (auto) 0.97 L (1.32-3.57) x10^3/uL Absolute Monos (auto) 0.59 (0.30-0.82) x10^3/uL Absolute Nucleated RBC 0.00 (0.00-0.012) x10^3u/L Lymphocytes % 12.2 L (21.8-53.1) % Monocytes % 7.4 (5.3-12.2) % Eosinophils % 6.8 (0.8-7.0) % Basophils % 0.4 (0.2-1.2) % Absolute Granulocytes 5.80 H (1.78-5.38) x10^3/uL Basophils # 0.03 (0.01-0.08) x10^3/uL Sodium 141 (135-145) mmol/L Potassium 4.2 (3.5-5.1) mmol/L Chloride 101 (98-107) mmol/L Carbon Dioxide 34 H (22-30) mmol/L Anion Gap 10.6 (5-15) MEQ/L BUN 29 H (9-20) mg/dL Creatinine 0.97 (0.66-1.25) mg/dL Estimated GFR 89.4 ML/MIN Glucose 96 (74-106) mg/dL Calcium 8.9 (8.4-10.2) mg/dL Total Bilirubin 0.30 (0.2-1.3) mg/dL AST 19 (17-59) U/L ALT 13 (0-50) U/L Alkaline Phosphatase 93 (38-126) U/L Serum Total Protein 7.7 (6.3-8.2) g/dL Albumin 4.1 (3.5-5.0) g/dL Micro Results-Entire Visit: Microbiology 11/03/24 11:35 Wound Culture - Final Leg - Left Lateral Staphylococcus Aureus 11/02/24 15:30 Wound Culture - Final Leg - Right Upper Pseudomonas Aeruginosa Staphylococcus Aureus Accuchecks Date 11/06/24 Date 11/05/24 Date 11/05/24 Date 11/05/24 Date 11/05/24 Time 21:35 Time 21:35 Time 17:02 Time 11:41 - Procedures and Test Procedures and Tests throughout Hospitalization: Therapy Orders & Screens 11/02/24 14:28 PT Eval & Treat ( Order) ONCE Reason for Eval:: wound evaluation Weakness Diagnosis: cellulitis right upper thigh wound 11/02/24 14:37 OT Screen per Nursing Assess ONCE Comment: Protocol Order Physician Instructions: Greater than 3 points order OT Admission Screening Reason For Exam: Triggered on Admission Diagnosis: Cellulitis Open Wound/Cellutlitis/Pressure Ulcers: Yes Acute Fx/ORIF/Change in wt bearing status: No Severe MUSCULOSKELETAL pain: No ADL Dysfunction: No Acute CVA w/Hemiparesis/Hemiplegia: No Decreased Functional Mobility/Strength: No Sprain/Strain: No Acute Post-op Mobility Dysfunction: No Total Points: 5 PT Screen per Nursing Assess ONCE Comment: Protocol Order Physician Instructions: Greater than 3 points order PT Admission Screenin Reason For Exam: Triggered on Admission Diagnosis: Cellulitis Open Wound/Cellutlitis/Pressure Ulcers: Yes Acute Fx/ORIF/Change in wt bearing status: No Severe MUSCULOSKELETAL pain: No ADL Dysfunction: No Acute CVA w/Hemiparesis/Hemiplegia: No Decreased Functional Mobility/Strength: No Sprain/Strain: No Acute Post-op Mobility Dysfunction: No Total Points: 5 Discharge Exam General Appearance: no apparent distress, alert Neurologic Exam: alert, oriented x 3, cooperative, normal mood/affect, nml cerebellar function, sensation nml, No motor deficits Eye Exam: PERRL, EOMI, eyes nml inspection Ears, Nose, Throat Exam: normal ENT inspection, pharynx normal, moist mucous membranes Neck Exam: normal inspection, non-tender, supple, full range of motion Respiratory Exam: normal breath sounds, lungs clear, No respiratory distress Cardiovascular Exam: regular rate/rhythm, normal heart sounds Gastrointestinal/Abdomen Exam: soft, No tenderness, No mass Male Genitalia Exam: deferred Rectal Exam: deferred Back Exam: normal inspection, normal range of motion, No CVA tenderness, No vertebral tenderness Extremity Exam: normal inspection, normal range of motion, other (BLLE wrapped, wound to right upper thigh- see pics and notes in chart.) Skin Exam: normal color, warm, dry Wound Assessment: Skin/Wound Assessment Wound/Incision Assessment Start: 11/02/24 13:59 Text: Status: Active Freq: Q6H Protocol: Document 11/06/24 02:00 MM (Rec: 11/06/24 02:06 MM [id number]) Wound/Incision Assessment Right Posterior Thigh Wound Assessment Shift Assessment Wound Type CELLULITUS Wound Stage Non Pressure Wound Dressing Status Changed Drainage Amount Moderate Drainage Description Serosanguineous Surrounding Tissue Dark Red Primary Dressing 6X6 MEPILEX Wound Photo Photo Taken No Final Diagnosis/Problem List - Final Discharge Diagnosis/Problem (1) Cellulitis Current Visit: Yes Status: Acute Assessment & Plan: -Wound culture to left lateral leg with staph Aeurus - listed as final result. Wound culture to right upper thigh with pseudomonas/stap aureus - Antibiotics changed to cipro and minocycline- per pharmacy recs - Dressing changes per podiatry - CBC, CMP reviewed Code(s): L03.90 - CELLULITIS, UNSPECIFIED (2) Ulcer of extremity due to chronic venous insufficiency Current Visit: No Status: Chronic Assessment & Plan: -see cellulitis Code(s): L98.499 - NON-PRESSURE CHRONIC ULCER OF SKIN OF SITES W UNSP SEVERITY; I87.2 - VENOUS INSUFFICIENCY (CHRONIC) (PERIPHERAL) (3) Wound of thigh Current Visit: Yes Status: Acute Assessment & Plan: -Cultures as stated above - see plan for cellulitis -Surgery team evaluated patient - no surgical intervention needed - advised continuation of abx - Levaquin Code(s): S71.109A - UNSPECIFIED OPEN WOUND, UNSPECIFIED THIGH, INITIAL ENCOUNTER (4) Cough Current Visit: Yes Status: Acute Assessment & Plan: -Improved -Resp panel negative for flu/covid/rsv -CXR with no acute findings -Robitussin Code(s): R05.9 - COUGH, UNSPECIFIED (5) Anemia Current Visit: No Status: Chronic Assessment & Plan: - Hgb stable Code(s): D64.9 - ANEMIA, UNSPECIFIED (6) HTN (hypertension) Current Visit: No Status: Chronic Assessment & Plan: -stable continue home meds Code(s): I10 - ESSENTIAL (PRIMARY) HYPERTENSION (7) History of atrial fibrillation Current Visit: No Status: Chronic Assessment & Plan: -Xarelto - continue -tele Code(s): Z86.79 - PERSONAL HISTORY OF OTHER DISEASES OF THE CIRCULATORY SYSTEM (8) Hyperlipidemia Current Visit: No Status: Chronic Assessment & Plan: - lipid panel reviewed - HDL low at 30- education provided - not on current meds- f/u with PCP OP Code(s): E78.5 - HYPERLIPIDEMIA, UNSPECIFIED (9) Major depressive disorder Current Visit: No Status: Chronic Assessment & Plan: -continue home meds - denies homicidal or suicidal ideation Code(s): F32.9 - MAJOR DEPRESSIVE DISORDER, SINGLE EPISODE, UNSPECIFIED (10) Type 2 diabetes mellitus Current Visit: No Status: Chronic Assessment & Plan: -A1c 7.19- controlled -SSI -meal/glargine insulin -ADA diet -Discussed the importance of good glycemic control for wound healing (11) Morbid obesity Current Visit: Yes Status: Chronic Assessment & Plan: - advised ADA diet and exercise control The discharge plan took over 35 minutes due to the patients multiple allergies, requiring close coordination with the pharmacist to ensure the proper medications were prescribed and that potential allergic reactions or interactions were avoided. Case management was also involved to arrange the patients transfer to a rehabilitation facility, ensuring that all necessary services were in place for their recovery. Nursing worked to ensure the patient and their family understood the medication regimen, any potential side effects, and signs of allergic reactions to monitor. This comprehensive planning process was essential to ensuring the patients safe transition from the hospital to the rehab facility, where they would receive ongoing care and support. Code(s): E66.01 - MORBID (SEVERE) OBESITY DUE TO EXCESS CALORIES - Discharge Discharge Date: 11/06/24 (Envive) Disposition: XFER OTHER Condition: Stable Prescriptions: New Ciprofloxacin [Cipro 500 MG] 500 mg PO BID 10 Days #20 tablet Minocycline HCl 100 mg PO BID 10 Days #20 tablet Continue Metoprolol Tartrate 25 mg [Lopressor 25MG Tab] 25 mg PO BID Ergocalciferol (Vitamin D2) [Vitamin D2] 1,250 mcg PO WEEKLY Insulin Glargine [Lantus Insulin] 66 unit SQ BID Potassium Chloride 10 meq PO BID Atorvastatin Calcium 20 mg PO HS Ropinirole HCl 0.5 mg [Requip 0.5 MG] 0.5 mg PO HS Rivaroxaban [Xarelto] 20 mg PO HS Atorvastatin Calcium 40 mg PO DAILY Loperamide HCl 2 mg [Imodium 2 mg] 2 mg PO Q2H/PRN PRN PRN Reason: Diarrhea Insulin Lispro [Humalog] 14 unit SQ LUNCH Insulin Lispro [Humalog] 24 unit SQ BREAKFAST Furosemide 20 mg [Lasix 20 mg] 20 mg PO BID Insulin Lispro [Humalog] 26 unit SQ DINNER Discontinued Torsemide 20 mg [Demadex 20 mg] 20 mg PO BID Instructions: Cholesterol tests Follow up with: EVA ODELL FNP [Primary Care Provider] - 11/13/24 11:00 am
[2024-11-06 09:27] LABS: Slide Review 1 YES
--- NOTE | 2024-11-06 09:47 | CONS ---
HISTORY: The patient is 59 years old. He is not a good historian. He is telling me about his lower extremities. He has major bilateral venous disease of both lower extremities. He is under the care of Dr. Moreno, and he has had bilateral Unna boots for quite a while. He basically has had a 12 cm and 8 cm ulcer heal up under Unna boot management, which I suspect has been 6 to 8 months to heal this type of ulceration up. He now has a new ulceration on the right posterior thigh. It apparently did look like a big varicose vein or something earlier. This time it looks more like granulation tissue. There is also an 8 inch x 8 inch area of just rawness on the back of the thigh and then there is a little bit of a serpiginous 2.5 inch x 1 inch slightly raised up area that as I am noting now looks a little more like granulation tissue. He thinks this might have been from a spider bite. He was at the [facility]. He received substantial care. They said that he got IV fluid treatment, and actually the IV fluid blue his legs out. He was instructed in going someplace like the [place] [facility], but he either could not afford to or not get transportation to. It was not working out for him. He is from [place]. He did end up at [facility] and then he did end up at [facility] and then now subsequently here at [facility]. The dressing was changed. This was inspected. I am certainly am not anxious to do anything for this lesion. He also has 3 or 4 lesions on the back of his shoulders, but he does not know what they are from. He basically has a nonhealing entity on the posterior thigh area and may have some venous stasis component, although this is certainly up high. He could just have some incompetent valve component. He would benefit from a [facility] for evaluation of his venous system, but it certainly already seems like it is moving towards an end state system. His right thigh is about twice the size than it should be. He states this is about the normal size for it right now. I am not sure what help we are going to be. His regular doctor for his lower legs, Dr. Moreno, is here and will be managing them, and at this moment, I am not suggesting anything other than wound care. He is on Levaquin IV for this right posterior thigh area.
[2024-11-06] MEDS ORDERED: D50W 50 ml Abboject IV PRN (15:04)
[2024-11-06] MEDS ORDERED: GlucaGen 1 MG IM PRN (15:04)
[2024-11-06] MEDS ORDERED: Glutose 15 GM ORAL GEL PO PRN (15:04)
--- NOTE | 2024-11-06 16:33 | PCM.NOTE ---
Date and Time: 11/06/24 1633 Subjective Assessment: Follow-up 4 day postadmission for diuresis and cellulitis of bilateral lower extremity. Jeff reports that he is feeling much better today. Bilateral lower extremities with 3+ pitting edema to the level of the knee. Right lower extremity with multiple open wounds that are without purulent discharge or malodor. Left lower extremity with multiple open wounds that are without purulent discharge or malodor. Lateral aspect left lower extremity with sore that has mild drainage. Physical Exam - Narrative Narrative Physical Exam: Podiatry Physical Exam Objective Data Vital Signs: Vital Signs - 24 hr Temp Pulse Resp BP Pulse Ox 11/06/24 11:37 98.2 F 68 18 116/58 99 11/06/24 07:20 97.9 F 62 18 113/56 97 11/06/24 04:00 98.2 F 58 L 16 104/59 97 11/06/24 00:00 97.3 F 58 L 18 98/51 99 11/05/24 18:51 97.0 F 67 18 112/56 95 Pain Assessment - Last Documented Pain Intensity 2 Pain Scale Used 0-10 Pain Scale Intake and Output: Intake & Output 11/04/24 11/05/24 11/06/24 11/07/24 11:59 11:59 11:59 11:59 Intake Total 1967 9991 1512 600 Balance 1966 2271 1512 600 Weight 119.7 kg 118 kg Lab Results: Lab Results-Last 24 Hours 11/06/24 11/06/24 11/06/24 Range/Units 04:20 04:20 14:10 WBC 8.0 (4.23-9.07) x10^3/uL RBC 4.84 (4.63-6.08) x10^6/uL Hgb 9.3 L (13.7-17.5) g/dL Hct 33.0 L (40.1-51.0) % MCV 68.2 L (79.0-92.2) fL MCH 19.2 L (25.7-32.2) pg MCHC 28.2 L (32.3-36.5) g/dL RDW 16.8 H (11.6-14.4) % Plt Count 417 H (163-337) x10^3/uL MPV 9.4 (9.4-12.4) fL Gran % 72.8 H (34.0-67.9) % Immature Gran % (Auto) 0.4 (0.001-0.429) % Nucleat RBC Rel Count 0.0 (0.00-0.2) % Eos # (Auto) 0.54 (0.04-0.54) x10^3/uL Immature Gran # (Auto) 0.03 (0.001-0.031) x10^3u/L Absolute Lymphs (auto) 0.97 L (1.32-3.57) x10^3/uL Absolute Monos (auto) 0.59 (0.30-0.82) x10^3/uL Absolute Nucleated RBC 0.00 (0.00-0.012) x10^3u/L Lymphocytes % 12.2 L (21.8-53.1) % Monocytes % 7.4 (5.3-12.2) % Eosinophils % 6.8 (0.8-7.0) % Basophils % 0.4 (0.2-1.2) % Absolute Granulocytes 5.80 H (1.78-5.38) x10^3/uL Basophils # 0.03 (0.01-0.08) x10^3/uL Sodium 141 (135-145) mmol/L Potassium 4.2 (3.5-5.1) mmol/L Chloride 101 (98-107) mmol/L Carbon Dioxide 34 H (22-30) mmol/L Anion Gap 10.6 (5-15) MEQ/L BUN 29 H (9-20) mg/dL Creatinine 0.97 (0.66-1.25) mg/dL Estimated GFR 89.4 ML/MIN Glucose 96 (74-106) mg/dL POC Glucometer (74 to 106) mg/dL Calcium 8.9 (8.4-10.2) mg/dL Total Bilirubin 0.30 (0.2-1.3) mg/dL AST 19 (17-59) U/L ALT 13 (0-50) U/L Alkaline Phosphatase 93 (38-126) U/L Serum Total Protein 7.7 (6.3-8.2) g/dL Albumin 4.1 (3.5-5.0) g/dL Vancomycin Trough 28.23 H (10-20) ug/mL Slides for Path Review YES 11/06/24 Range/Units 15:03 WBC (4.23-9.07) x10^3/uL RBC (4.63-6.08) x10^6/uL Hgb (13.7-17.5) g/dL Hct (40.1-51.0) % MCV (79.0-92.2) fL MCH (25.7-32.2) pg MCHC (32.3-36.5) g/dL RDW (11.6-14.4) % Plt Count (163-337) x10^3/uL MPV (9.4-12.4) fL Gran % (34.0-67.9) % Immature Gran % (Auto) (0.001-0.429) % Nucleat RBC Rel Count (0.00-0.2) % Eos # (Auto) (0.04-0.54) x10^3/uL Immature Gran # (Auto) (0.001-0.031) x10^3u/L Absolute Lymphs (auto) (1.32-3.57) x10^3/uL Absolute Monos (auto) (0.30-0.82) x10^3/uL Absolute Nucleated RBC (0.00-0.012) x10^3u/L Lymphocytes % (21.8-53.1) % Monocytes % (5.3-12.2) % Eosinophils % (0.8-7.0) % Basophils % (0.2-1.2) % Absolute Granulocytes (1.78-5.38) x10^3/uL Basophils # (0.01-0.08) x10^3/uL Sodium (135-145) mmol/L Potassium (3.5-5.1) mmol/L Chloride (98-107) mmol/L Carbon Dioxide (22-30) mmol/L Anion Gap (5-15) MEQ/L BUN (9-20) mg/dL Creatinine (0.66-1.25) mg/dL Estimated GFR ML/MIN Glucose (74-106) mg/dL POC Glucometer 90 (74 to 106) mg/dL Calcium (8.4-10.2) mg/dL Total Bilirubin (0.2-1.3) mg/dL AST (17-59) U/L ALT (0-50) U/L Alkaline Phosphatase (38-126) U/L Serum Total Protein (6.3-8.2) g/dL Albumin (3.5-5.0) g/dL Vancomycin Trough (10-20) ug/mL Slides for Path Review Multi-Disciplinary Progress Notes: Multi-Disciplinary Progress Notes 11/06/24 15:13 Pharmacy Note by Juan Liang Vancomycin trough high at 28.2. Will stop infusion and put Vanco on hold for the rest of the day. Check level with am labs tomorrow and re-dose. Initialized on 11/06/24 15:13 - END OF NOTE 11/06/24 12:58 Case Management Note by Jud Kurtz ENVIVE RECEIVED AUTH BUT REPORTS ADMIT DATE IS FOR 11/07/24- WILL PLAN TO DC TOMORROW TO SNF Initialized on 11/06/24 12:58 - END OF NOTE 11/06/24 10:34 Case Management Note by Jud Kurtz S/W PATIENT- [facility] AWAITING APPROVAL AT THIS TIME Initialized on 11/06/24 10:34 - END OF NOTE 11/06/24 08:30 Case Management Note by Jud Kurtz PASRR COMPLETE- NO LEVEL II REQUIRED LOC APPROVED FOR SHORT TERM STAY COPIES PLACED ON CHART AND FAXED WITH CLINICAL UPDATE TO ENVIVE Initialized on 11/06/24 08:30 - END OF NOTE Assessment/Plan (1) Uncontrolled diabetes mellitus Current Visit: No Status: Chronic Qualifiers: Diabetes mellitus type: type 2 Glycemic state: with hyperglycemia Qualified Code(s): E11.65 - Type 2 diabetes mellitus with hyperglycemia Code(s): MKG1315 - (2) Peripheral neuropathy Current Visit: No Status: Chronic Code(s): G62.9 - POLYNEUROPATHY, UNSPECIFIED (3) Poor social situation Current Visit: No Status: Acute Code(s): Z65.9 - PROBLEM RELATED TO UNSPECIFIED PSYCHOSOCIAL CIRCUMSTANCES (4) Muscular deconditioning Current Visit: No Status: Acute Code(s): R29.898 - OTH SYMPTOMS AND SIGNS INVOLVING THE MUSCULOSKELETAL SYSTEM (5) Atypical chest pain Current Visit: No Status: Acute Code(s): R07.89 - OTHER CHEST PAIN (6) Ulcer of extremity due to chronic venous insufficiency Current Visit: No Status: Chronic Code(s): L98.499 - NON-PRESSURE CHRONIC ULCER OF SKIN OF SITES W UNSP SEVERITY; I87.2 - VENOUS INSUFFICIENCY (CHRONIC) (PERIPHERAL) (7) Decubitus ulcer due to device Current Visit: No Status: Acute Assessment & Plan: Bilateral lower extremities dressed with iodine paint, Adaptic, 4 x 4, and Unna boots with moderate compression. Culture obtained of left lower extremity lateral aspect. Recommend continue compression therapy be using Unna boots in conjunction with diuresis. Code(s): T85.898A - OTH COMPLICATION OF OTHER INTERNAL PROSTH DEV/GRFT, INIT; L89.90 - PRESSURE ULCER OF UNSPECIFIED SITE, UNSPECIFIED STAGE (8) Unable to care for self Current Visit: No Status: Acute Code(s): Z78.9 - OTHER SPECIFIED HEALTH STATUS (9) Cellulitis Current Visit: Yes Status: Acute Code(s): L03.90 - CELLULITIS, UNSPECIFIED
[2024-11-06] MEDS: TROUGH DRUG LEVELS IJ ONE (18:16)
[2024-11-07 04:50] LABS: Absolute Neutrophil Ct (ANC) 5.23 x10^3/uL (1.78-5.38); BASOPHIL % 0.4 % (0.2-1.2); Basophil (Absolute #) 0.03 x10^3/uL (0.01-0.08); Hematocrit 31.5 % (40.1-51.0); IMMATURE GRAN # 0.03 x10^3u/L (0.001-0.031); IMMATURE GRAN % 0.4 % (0.001-0.429); Lymphocyte (Absolute #) 0.92 x10^3/uL (1.32-3.57); Lymphocytes % 12.3 % (21.8-53.1); Mean Cell Volume 68.2 fL (79.0-92.2); Mean Corpuscular Hemoglobin 19.5 pg (25.7-32.2); Mean Corpuscular Hgb Concent. 28.6 g/dL (32.3-36.5); Mean Platelet Volume 9.8 fL (9.4-12.4); Monocyte (Absolute #) 0.65 x10^3/uL (0.30-0.82); Monocytes % 8.7 % (5.3-12.2); Neutrophil % 70.2 % (34.0-67.9); Platelet Count 432 x10^3/uL (163-337); Red Blood Count 4.62 x10^6/uL (4.63-6.08); White Blood Count 7.5 x10^3/uL (4.23-9.07)
[2024-11-07 05:19] LABS: Slide Review 1 YES
[2024-11-07 05:20] LABS: ANION GAP 9.8 MEQ/L (5-15); BILIRUBIN,TOTAL 0.3 mg/dL (0.2-1.3); Calcium 8.6 mg/dL (8.4-10.2); Creatinine 1 0.95 mg/dL (0.66-1.25); EST GLOMERULAR FILTRATION RATE 91.6 ML/MIN; Potassium 4.3 mmol/L (3.5-5.1); Total Protein 7.4 g/dL (6.3-8.2)
[2024-11-07 07:52] VITALS: RESP 17
--- NOTE | 2024-11-07 09:21 | PCM.DS ---
Discharge Summary Date of Admission: 11/02/24 13:05 Date of Discharge: 11/07/24 Admitting Physician: AISLINN WATSON MD Consults: Consults on Case 11/02/24 14:16 Consult Surgery ROUTINE 11/02/24 14:30 Consult Podiatry ROUTINE 11/06/24 15:04 Notify Physician ROUTINE Primary Care Provider: MARCELLO CHERRY Allergies Allergies clindamycin Allergy (Verified 11/02/24 13:55) Penicillins Allergy (Verified 11/02/24 13:55) Sulfa (Sulfonamide Antibiotics) Allergy (Verified 11/02/24 13:55) Hospital Summary - Hospital Course Hospital Course: 11/06 Mr. Hidalgo is a 59 year old male with a pmhx of peripheral neuropathy, AFIB (xarelto), DMII, and OA. He was directly admitted 11/02/24 for worsening right upper thigh and BLE wounds. Patient is under the care of Dr. Moreno (podiatry). Patient also has complaints of fever, cough, congestion for the past three days with one episode of vomiting last night. Upon arrival temp noted at 100, otherwise stable vitals. Labs with anemia which appears chronic with a hgb of 8.7 otherwise unremarkable. Respiratory panel negative. Reviewed recent cultures with past infections of Staph aureus, MRSA, and enterococcus noted. Patient with multiple allergies. Admit for cellulitis and right upper thigh wound. Started vanc/levaquin and obtain new cultures. Pt wants SNF/ rehab placement for continued wound care needs. Surgery consulted for right upper thigh wound- no surgical intervention recommendations- advised to continue antibiotics. Wound cultures showing staph aureus and psuedomonas. D/C Antibiotics changed to cipro and minocycline per pharmacy recs. Podiatry following. Denies fever, SOB, cp, abdominal pain, MCGUIRE, dizziness, N/V/D. 11/07 Pt was to leave yesterday but facility was not ready. They are coming to get pt today via van and take to rehab. He is ready to d/c. He denies any further concerns at this time. - Vitals & Intake/Output Vital Signs: Vital Signs Temperature 97.4 F 11/07/24 07:51 Pulse Rate 59 L 11/07/24 07:51 Respiratory Rate 17 11/07/24 07:51 Blood Pressure 131/62 11/07/24 07:51 O2 Sat by Pulse Oximetry 98 11/07/24 07:51 Intake & Output: Intake & Output 11/04/24 11/05/24 11/06/24 11/07/24 11:59 11:59 11:59 11:59 Intake Total 1966 9974 1512 1560 Balance 1966 2270 1510 1560 Weight 119.7 kg 118 kg - Lab Result Diagrams: 11/07/24 04:48 11/07/24 04:48 Lab Results-Last 24 Hrs: Lab Results-Last 24 Hours 11/06/24 11/06/24 11/06/24 Range/Units 04:20 14:10 15:03 WBC (4.23-9.07) x10^3/uL RBC (4.63-6.08) x10^6/uL Hgb (13.7-17.5) g/dL Hct (40.1-51.0) % MCV (79.0-92.2) fL MCH (25.7-32.2) pg MCHC (32.3-36.5) g/dL RDW (11.6-14.4) % Plt Count (163-337) x10^3/uL MPV (9.4-12.4) fL Gran % (34.0-67.9) % Immature Gran % (Auto) (0.001-0.429) % Nucleat RBC Rel Count (0.00-0.2) % Eos # (Auto) (0.04-0.54) x10^3/uL Immature Gran # (Auto) (0.001-0.031) x10^3u/L Absolute Lymphs (auto) (1.32-3.57) x10^3/uL Absolute Monos (auto) (0.30-0.82) x10^3/uL Absolute Nucleated RBC (0.00-0.012) x10^3u/L Lymphocytes % (21.8-53.1) % Monocytes % (5.3-12.2) % Eosinophils % (0.8-7.0) % Basophils % (0.2-1.2) % Absolute Granulocytes (1.78-5.38) x10^3/uL Basophils # (0.01-0.08) x10^3/uL Sodium (135-145) mmol/L Potassium (3.5-5.1) mmol/L Chloride (98-107) mmol/L Carbon Dioxide (22-30) mmol/L Anion Gap (5-15) MEQ/L BUN (9-20) mg/dL Creatinine (0.66-1.25) mg/dL Estimated GFR ML/MIN Glucose (74-106) mg/dL POC Glucometer 90 (74 to 106) mg/dL Calcium (8.4-10.2) mg/dL Total Bilirubin (0.2-1.3) mg/dL AST (17-59) U/L ALT (0-50) U/L Alkaline Phosphatase (38-126) U/L Serum Total Protein (6.3-8.2) g/dL Albumin (3.5-5.0) g/dL Vancomycin Trough 28.23 H (10-20) ug/mL Random Vancomycin ug/mL Slides for Path Review YES 11/06/24 11/06/24 11/07/24 Range/Units 20:55 22:26 04:48 WBC 7.5 (4.23-9.07) x10^3/uL RBC 4.62 L (4.63-6.08) x10^6/uL Hgb 9.0 L (13.7-17.5) g/dL Hct 31.5 L (40.1-51.0) % MCV 68.2 L (79.0-92.2) fL MCH 19.5 L (25.7-32.2) pg MCHC 28.6 L (32.3-36.5) g/dL RDW 17.0 H (11.6-14.4) % Plt Count 432 H (163-337) x10^3/uL MPV 9.8 (9.4-12.4) fL Gran % 70.2 H (34.0-67.9) % Immature Gran % (Auto) 0.4 (0.001-0.429) % Nucleat RBC Rel Count 0.0 (0.00-0.2) % Eos # (Auto) 0.60 H (0.04-0.54) x10^3/uL Immature Gran # (Auto) 0.03 (0.001-0.031) x10^3u/L Absolute Lymphs (auto) 0.92 L (1.32-3.57) x10^3/uL Absolute Monos (auto) 0.65 (0.30-0.82) x10^3/uL Absolute Nucleated RBC 0.00 (0.00-0.012) x10^3u/L Lymphocytes % 12.3 L (21.8-53.1) % Monocytes % 8.7 (5.3-12.2) % Eosinophils % 8.0 H (0.8-7.0) % Basophils % 0.4 (0.2-1.2) % Absolute Granulocytes 5.23 (1.78-5.38) x10^3/uL Basophils # 0.03 (0.01-0.08) x10^3/uL Sodium (135-145) mmol/L Potassium (3.5-5.1) mmol/L Chloride (98-107) mmol/L Carbon Dioxide (22-30) mmol/L Anion Gap (5-15) MEQ/L BUN (9-20) mg/dL Creatinine (0.66-1.25) mg/dL Estimated GFR ML/MIN Glucose (74-106) mg/dL POC Glucometer 63 L 104 (74 to 106) mg/dL Calcium (8.4-10.2) mg/dL Total Bilirubin (0.2-1.3) mg/dL AST (17-59) U/L ALT (0-50) U/L Alkaline Phosphatase (38-126) U/L Serum Total Protein (6.3-8.2) g/dL Albumin (3.5-5.0) g/dL Vancomycin Trough (10-20) ug/mL Random Vancomycin ug/mL Slides for Path Review YES 11/07/24 11/07/24 Range/Units 04:48 04:48 WBC (4.23-9.07) x10^3/uL RBC (4.63-6.08) x10^6/uL Hgb (13.7-17.5) g/dL Hct (40.1-51.0) % MCV (79.0-92.2) fL MCH (25.7-32.2) pg MCHC (32.3-36.5) g/dL RDW (11.6-14.4) % Plt Count (163-337) x10^3/uL MPV (9.4-12.4) fL Gran % (34.0-67.9) % Immature Gran % (Auto) (0.001-0.429) % Nucleat RBC Rel Count (0.00-0.2) % Eos # (Auto) (0.04-0.54) x10^3/uL Immature Gran # (Auto) (0.001-0.031) x10^3u/L Absolute Lymphs (auto) (1.32-3.57) x10^3/uL Absolute Monos (auto) (0.30-0.82) x10^3/uL Absolute Nucleated RBC (0.00-0.012) x10^3u/L Lymphocytes % (21.8-53.1) % Monocytes % (5.3-12.2) % Eosinophils % (0.8-7.0) % Basophils % (0.2-1.2) % Absolute Granulocytes (1.78-5.38) x10^3/uL Basophils # (0.01-0.08) x10^3/uL Sodium 140 (135-145) mmol/L Potassium 4.3 (3.5-5.1) mmol/L Chloride 101 (98-107) mmol/L Carbon Dioxide 34 H (22-30) mmol/L Anion Gap 9.8 (5-15) MEQ/L BUN 33 H (9-20) mg/dL Creatinine 0.95 (0.66-1.25) mg/dL Estimated GFR 91.6 ML/MIN Glucose 108 H (74-106) mg/dL POC Glucometer (74 to 106) mg/dL Calcium 8.6 (8.4-10.2) mg/dL Total Bilirubin 0.30 (0.2-1.3) mg/dL AST 23 (17-59) U/L ALT 15 (0-50) U/L Alkaline Phosphatase 102 (38-126) U/L Serum Total Protein 7.4 (6.3-8.2) g/dL Albumin 4.0 (3.5-5.0) g/dL Vancomycin Trough (10-20) ug/mL Random Vancomycin 20.70 ug/mL Slides for Path Review Micro Results-Entire Visit: Microbiology 11/03/24 11:35 Wound Culture - Final Leg - Left Lateral Staphylococcus Aureus 11/02/24 15:30 Wound Culture - Final Leg - Right Upper Pseudomonas Aeruginosa Staphylococcus Aureus Accuchecks Date 11/07/24 Date 11/06/24 Date 11/06/24 Time 07:51 - Procedures and Test Procedures and Tests throughout Hospitalization: Therapy Orders & Screens 11/02/24 14:28 PT Eval & Treat ( Order) ONCE Reason for Eval:: wound evaluation Weakness Diagnosis: cellulitis right upper thigh wound 11/02/24 14:37 OT Screen per Nursing Assess ONCE Comment: Protocol Order Physician Instructions: Greater than 3 points order OT Admission Screening Reason For Exam: Triggered on Admission Diagnosis: Cellulitis Open Wound/Cellutlitis/Pressure Ulcers: Yes Acute Fx/ORIF/Change in wt bearing status: No Severe MUSCULOSKELETAL pain: No ADL Dysfunction: No Acute CVA w/Hemiparesis/Hemiplegia: No Decreased Functional Mobility/Strength: No Sprain/Strain: No Acute Post-op Mobility Dysfunction: No Total Points: 5 PT Screen per Nursing Assess ONCE Comment: Protocol Order Physician Instructions: Greater than 3 points order PT Admission Screenin Reason For Exam: Triggered on Admission Diagnosis: Cellulitis Open Wound/Cellutlitis/Pressure Ulcers: Yes Acute Fx/ORIF/Change in wt bearing status: No Severe MUSCULOSKELETAL pain: No ADL Dysfunction: No Acute CVA w/Hemiparesis/Hemiplegia: No Decreased Functional Mobility/Strength: No Sprain/Strain: No Acute Post-op Mobility Dysfunction: No Total Points: 5 Discharge Exam General Appearance: no apparent distress, alert Neurologic Exam: alert, oriented x 3, cooperative, normal mood/affect, nml cerebellar function, sensation nml, No motor deficits Eye Exam: PERRL, EOMI, eyes nml inspection Ears, Nose, Throat Exam: normal ENT inspection, pharynx normal, moist mucous membranes Neck Exam: normal inspection, non-tender, supple, full range of motion Respiratory Exam: normal breath sounds, lungs clear, No respiratory distress Cardiovascular Exam: regular rate/rhythm, normal heart sounds Gastrointestinal/Abdomen Exam: soft, No tenderness, No mass Male Genitalia Exam: deferred Rectal Exam: deferred Back Exam: normal inspection, normal range of motion, No CVA tenderness, No vertebral tenderness Extremity Exam: normal inspection, normal range of motion Skin Exam: normal color, warm, dry, other (BLLE wrapped, wound to right upper thigh- see pics and notes in chart.) Wound Assessment: Skin/Wound Assessment Wound/Incision Assessment Start: 11/02/24 13:59 Text: Status: Active Freq: Q6H Protocol: Document 11/07/24 02:00 MP (Rec: 11/07/24 04:22 MP [id number]) Wound/Incision Assessment Right Posterior Thigh Wound Assessment Shift Assessment Wound Type CELLULITUS Wound Stage Non Pressure Wound Dressing Status Dry & Intact Drainage Amount Minimal Drainage Description Serosanguineous General Appearance Draining Surrounding Tissue Dark Red,Purple,Edematous Primary Dressing Bordered mepilex Comment dressing in place, Dry and intact with minimal shadowing noted Wound Photo Photo Taken No Final Diagnosis/Problem List - Final Discharge Diagnosis/Problem (1) Cellulitis Current Visit: Yes Status: Acute Code(s): L03.90 - CELLULITIS, UNSPECIFIED (2) Ulcer of extremity due to chronic venous insufficiency Current Visit: No Status: Chronic Code(s): L98.499 - NON-PRESSURE CHRONIC ULCER OF SKIN OF SITES W UNSP SEVERITY; I87.2 - VENOUS INSUFFICIENCY (CHRONIC) (PERIPHERAL) (3) Wound of thigh Current Visit: Yes Status: Acute Code(s): S71.109A - UNSPECIFIED OPEN WOUND, UNSPECIFIED THIGH, INITIAL ENCOUNTER (4) Cough Current Visit: Yes Status: Acute Code(s): R05.9 - COUGH, UNSPECIFIED (5) Anemia Current Visit: No Status: Chronic Code(s): D64.9 - ANEMIA, UNSPECIFIED (6) HTN (hypertension) Current Visit: No Status: Chronic Code(s): I10 - ESSENTIAL (PRIMARY) HYPERTENSION (7) History of atrial fibrillation Current Visit: No Status: Chronic Code(s): Z86.79 - PERSONAL HISTORY OF OTHER DISEASES OF THE CIRCULATORY SYSTEM (8) Hyperlipidemia Current Visit: No Status: Chronic Code(s): E78.5 - HYPERLIPIDEMIA, UNSPECIFIED (9) Major depressive disorder Current Visit: No Status: Chronic Code(s): F32.9 - MAJOR DEPRESSIVE DISORDER, SINGLE EPISODE, UNSPECIFIED (10) Type 2 diabetes mellitus Current Visit: No Status: Chronic (11) Morbid obesity Current Visit: Yes Status: Chronic Assessment & Plan: (1) Cellulitis Current Visit: Yes Status: Acute Assessment & Plan: -Wound culture to left lateral leg with staph Aeurus - listed as final result. Wound culture to right upper thigh with pseudomonas/stap aureus - Antibiotics changed to cipro and minocycline- per pharmacy recs - Dressing changes per podiatry - CBC, CMP reviewed Code(s): L03.90 - CELLULITIS, UNSPECIFIED (2) Ulcer of extremity due to chronic venous insufficiency Current Visit: No Status: Chronic Assessment & Plan: -see cellulitis Code(s): L98.499 - NON-PRESSURE CHRONIC ULCER OF SKIN OF SITES W UNSP SEVERITY; I87.2 - VENOUS INSUFFICIENCY (CHRONIC) (PERIPHERAL) (3) Wound of thigh Current Visit: Yes Status: Acute Assessment & Plan: -Cultures as stated above - see plan for cellulitis -Surgery team evaluated patient - no surgical intervention needed - advised continuation of abx - antibiotics changed to cipro and minocycline OP Code(s): S71.109A - UNSPECIFIED OPEN WOUND, UNSPECIFIED THIGH, INITIAL ENCOUNTER (4) Cough Current Visit: Yes Status: Acute Assessment & Plan: -Improved -Resp panel negative for flu/covid/rsv -CXR with no acute findings -Robitussin Code(s): R05.9 - COUGH, UNSPECIFIED (5) Anemia Current Visit: No Status: Chronic Assessment & Plan: - Hgb stable Code(s): D64.9 - ANEMIA, UNSPECIFIED (6) HTN (hypertension) Current Visit: No Status: Chronic Assessment & Plan: -stable continue home meds Code(s): I10 - ESSENTIAL (PRIMARY) HYPERTENSION (7) History of atrial fibrillation Current Visit: No Status: Chronic Assessment & Plan: -Xarelto - continue -tele Code(s): Z86.79 - PERSONAL HISTORY OF OTHER DISEASES OF THE CIRCULATORY SYSTEM (8) Hyperlipidemia Current Visit: No Status: Chronic Assessment & Plan: - lipid panel reviewed - HDL low at 30- education provided - not on current meds- f/u with PCP OP Code(s): E78.5 - HYPERLIPIDEMIA, UNSPECIFIED (9) Major depressive disorder Current Visit: No Status: Chronic Assessment & Plan: -continue home meds - denies homicidal or suicidal ideation Code(s): F32.9 - MAJOR DEPRESSIVE DISORDER, SINGLE EPISODE, UNSPECIFIED (10) Type 2 diabetes mellitus Current Visit: No Status: Chronic Assessment & Plan: -A1c 7.19- controlled -SSI -meal/glargine insulin -ADA diet -Discussed the importance of good glycemic control for wound healing (11) Morbid obesity Current Visit: Yes Status: Chronic Assessment & Plan: - advised ADA diet and exercise control The discharge plan took over 35 minutes due to the patients multiple allergies, requiring close coordination with the pharmacist to ensure the proper medications were prescribed and that potential allergic reactions or int eractions were avoided. Case management was also involved to arrange the patients transfer to a rehabilitation facility, ensuring that all necessary services were in place for their recovery. Nursing worked to ensure the patient and their family understood the medication regimen, any potential side effects, and signs of allergic reactions to monitor. This comprehensive planning process was essential to ensuring the patients safe transition from the hospital to the rehab facility, where they would receive ongoing care and support. Code(s): E66.01 - MORBID (SEVERE) OBESITY DUE TO EXCESS CALORIES - Discharge Discharge Date: 11/07/24 (Envive) Disposition: XFER OTHER Condition: Stable Prescriptions: New Ciprofloxacin [Cipro 500 MG] 500 mg PO BID 10 Days #20 tablet Minocycline HCl 100 mg PO BID 10 Days #20 tablet Continue Metoprolol Tartrate 25 mg [Lopressor 25MG Tab] 25 mg PO BID Ergocalciferol (Vitamin D2) [Vitamin D2] 1,250 mcg PO WEEKLY Insulin Glargine [Lantus Insulin] 66 unit SQ BID Potassium Chloride 10 meq PO BID Atorvastatin Calcium 20 mg PO HS Ropinirole HCl 0.5 mg [Requip 0.5 MG] 0.5 mg PO HS Rivaroxaban [Xarelto] 20 mg PO HS Atorvastatin Calcium 40 mg PO DAILY Loperamide HCl 2 mg [Imodium 2 mg] 2 mg PO Q2H/PRN PRN PRN Reason: Diarrhea Insulin Lispro [Humalog] 14 unit SQ LUNCH Insulin Lispro [Humalog] 24 unit SQ BREAKFAST Furosemide 20 mg [Lasix 20 mg] 20 mg PO BID Insulin Lispro [Humalog] 26 unit SQ DINNER Discontinued Torsemide 20 mg [Demadex 20 mg] 20 mg PO BID Instructions: Cholesterol tests Additional Instructions: SNF ORDERS: ADMIT TO [facility] [address] [facility] DIET A[facility]S ACCU CHECK WOUND CARE FOR RIGHT THIGH WOUND- CLEANSE DAILY (AND PRN) WITH NORMAL SALINE AND APPLY 6X6 MEPILEX DRESSING, APPLY BARRIER CREAM AROUND DRESSING Pt needs dressing changes by SNF 2 times a week. ( AMBAR LOWER LEGS) Apply iodine to AMBAR lower legs. Apply adaptic (non-adherent dressing) and sterile 4x4 gauze to all open areas of lower legs. Apply unna boot, fan-folded, to level of tibial tuberosity. Wrap with kerlix to same level. Wrap with coban with moderate (50%) compression to same level. SEE ATTACHED MED LIST Follow up with: IMTIAZ LOMBARDO DPM [ACTIVE STAFF] - 11/09/24 8:30 am EVA ODELL FNP [Primary Care Provider] - 11/13/24 11:00 am
[2024-11-07] MEDS: VANCOCIN INJECTION*** 1 GM in Sodium Chloride 0.9% 250 ML 250 ML IV SCH (09:43)
[2024-11-07 12:29] VITALS: BP 126/71; PULSE 62; TEMP 97.3; O2SAT 99
[2024-11-08] MEDS ORDERED: TROUGH DRUG LEVELS IJ ONE (21:30)
== END 2024-11-07 13:50 | DRG 603 ==
LOC: MED SURG 13:05 → OBSVTOIN 13:05
PROVIDERS: ADMIT Internal Medicine; ATTEND Internal Medicine
PROC: 2W1MX6Z Compression of Left Lower Extremity using Pressure Dressing (ICD-10-PCS; principal; 2024-11-03)
PROC: 2W1LX6Z Compression of Right Lower Extremity using Pressure Dressing (ICD-10-PCS; 2024-11-03)
DX: L03.115 Cellulitis of right lower limb (principal); Z59.811 Housing instability, housed, with risk of homelessness; E11.65 Type 2 diabetes mellitus with hyperglycemia; L03.116 Cellulitis of left lower limb; Z65.9 Problem related to unspecified psychosocial circumstances; G62.9 Polyneuropathy, unspecified; R29.898 Other symptoms and signs involving the musculoskeletal system; R07.89 Other chest pain; I87.2 Venous insufficiency (chronic) (peripheral); L89.899 Pressure ulcer of other site, unspecified stage; I48.91 Unspecified atrial fibrillation; R50.9 Fever, unspecified; R11.10 Vomiting, unspecified; S71.101A Unspecified open wound, right thigh, initial encounter; R05.9 Cough, unspecified; D64.9 Anemia, unspecified; I10 Essential (primary) hypertension; Z86.79 Personal history of other diseases of the circulatory system; E78.5 Hyperlipidemia, unspecified; F32.9 Major depressive disorder, single episode, unspecified; E66.01 Morbid (severe) obesity due to excess calories; Z79.899 Other long term (current) drug therapy; Z79.01 Long term (current) use of anticoagulants
CPT/HCPCS: 0241U; 11042; 29580; 36415; 71045; 73701; 80053; 80061; 80202; 81001; 82947; 83036; 83721; 84145; 85025; 85652; 86140; 87070; 87077; 87186; 99213; 99221; 99232; J1817; J1940; J1956; J3370; Q3014; A9270-GY

== ENCOUNTER 2024-12-11 09:53 | Emergency (ER) | payer MEDICARE, OTHER ==
[2024-12-11 10:13] VITALS: TEMP 97.4
--- NOTE | 2024-12-11 10:30 | ERPHSYRPT ---
- History of Present Illness Time Seen by Provider: 12/11/24 10:17 Source: patient Exam Limitations: no limitations Patient Subjective Stated Complaint: wound check Triage Nursing Assessment: patient has a large wound on the back of right thigh. patient states he has had this wounds for around 15 years. per patient a dr in [place] told him it was the result of a vein rupture at the time of diagnosis. patient is diabetic. patient see dr tian for lower extremities. patient has a heart history. was supposed to have an echo today but is now here in the ER. patient states wound is draining. brennan does not currently see a dr for this chronic wound. Physician History: Patient is a 59-year-old male Struve diabetes presents to our ED for evaluation of a draining wound to the right posterior thigh. Patient states the wound is chronic and has been present for approximately 15 years. Patient states the wound has recently become more painful. Patient states it is now draining more than normal. No trauma no fever. Patient has a primary care doctor in [place]. However patient is not currently undergoing active treatment to this wound. Portions of this note were created with voice recognition technology. There may be grammatical, spelling, punctuation or sound alike errors Timing/Duration: day(s) (Symptoms worse over the past week) Severity: moderate Modifying Factors: Improves With: nothing Associated Symptoms: denies symptoms Allergies/Adverse Reactions: clindamycin Allergy (Verified 12/11/24 10:14) Penicillins Allergy (Verified 12/11/24 10:14) Sulfa (Sulfonamide Antibiotics) Allergy (Verified 12/11/24 10:14) Home Medications: Ergocalciferol (Vitamin D2) [Vitamin D2] 1,250 mcg PO WEEKLY 02/05/23 [History] Metoprolol Tartrate 25 mg [Lopressor 25MG Tab] 25 mg PO BID 02/05/23 [History] Insulin Glargine [Lantus Insulin] 66 unit SQ BID 10/18/23 [History] Potassium Chloride 10 meq PO BID 02/03/24 [History] Atorvastatin Calcium 40 mg PO DAILY 06/12/24 [History] Rivaroxaban [Xarelto] 20 mg PO HS 06/12/24 [History] Ropinirole HCl 0.5 mg [Requip 0.5 MG] 0.5 mg PO HS 06/12/24 [History] Furosemide 20 mg [Lasix 20 mg] 20 mg PO BID 11/02/24 [History] Insulin Lispro [Humalog] 14 unit SQ LUNCH 11/02/24 [History] Insulin Lispro [Humalog] 24 unit SQ BREAKFAST 11/02/24 [History] Insulin Lispro [Humalog] 26 unit SQ DINNER 11/02/24 [History] Loperamide HCl 2 mg [Imodium 2 mg] 2 mg PO Q2H/PRN PRN 11/02/24 [History] Torsemide 20 mg [Demadex 20 mg] 20 mg PO BID 12/11/24 [History] Hx Tetanus, Diphtheria Vaccination/Date Given: No Hx Influenza Vaccination/Date Given: Yes Hx Pneumococcal Vaccination/Date Given: Yes Travel Risk - International Travel Have you traveled outside of the country in past 3 weeks: No - Emerging Infectious Disease Are you exhibiting symptoms associated with any current EIDs: No Symptoms: Cough: New Onset, Fever - Review of Systems Constitutional: No Symptoms, No Fever, No Chills Eyes: No Symptoms Ears, Nose, & Throat: No Symptoms Respiratory: No Symptoms, No Cough, No Dyspnea Cardiac: No Symptoms, No Chest Pain, No Edema, No Syncope Abdominal/Gastrointestinal: No Symptoms, No Abdominal Pain, No Nausea, No Vomiting, No Diarrhea Genitourinary Symptoms: No Symptoms, No Dysuria Musculoskeletal: No Symptoms, No Back Pain, No Neck Pain Skin: No Symptoms, No Rash Neurological: No Symptoms, No Dizziness, No Focal Weakness, No Sensory Changes Psychological: No Symptoms Endocrine: No Symptoms Hematologic/Lymphatic: No Symptoms Immunological/Allergic: No Symptoms All Other Systems: Reviewed and Negative - Past Medical History Pertinent Past Medical History: Yes Neurological History: Peripheral Neuropathy ENT History: No Pertinent History Cardiac History: Angina, Arrhythmia Respiratory History: No Pertinent History Endocrine Medical History: Diabetes Type II Musculoskeletal History: Osteoarthritis GI Medical History: No Pertinent History History: No Pertinent History Psycho-Social History: No Pertinent History Male Reproductive Disorders: No Pertinent History Other Medical History: HISTORY OF B LE WOUNDS, PARTIAL SEPTUS INVERTUS, RUPTURED L ROTATOR CUFF. - Past Surgical History Past Surgical History: Yes Neuro Surgical History: No Pertinent History Cardiac: No Pertinent History Respiratory: No Pertinent History Gastrointestinal: No Pertinent History Genitourinary: No Pertinent History Musculoskeletal: No Pertinent History Male Surgical History: No Pertinent History Other Surgical History: PINWHEEL DRAIN IN BACK TO DRAIN FLUIDS_DONE BY [employer] MEZA 2021 Significant Family History: cancer - Social History Smoking Status: Never smoker Exposure to second hand smoke: No Drug Use: none - Social Determinants of Health Will the patient participate in the screening: Yes Do you worry about a steady place to live?: No Do you have any problems with any of the following?: No known problems In the past 12 months,have you had to go without utilities?: Yes Transportation Issues: No Has anyone in your support network made you feel unsafe?: No Have you or anyone in your house had to go w/o enough food: Yes - Nursing Vital Signs Nursing Vital Signs: Initial Vital Signs Temperature 97.4 F 12/11/24 09:56 Pulse Rate 88 12/11/24 09:56 Respiratory Rate 20 12/11/24 09:56 Blood Pressure 166/72 12/11/24 09:56 O2 Sat by Pulse Oximetry 99 12/11/24 09:56 Pain Scale Pain Intensity 2 - Physical Exam General Appearance: no apparent distress, alert Eye Exam: PERRL/EOMI, eyes nml inspection Ears, Nose, Throat Exam: normal ENT inspection, pharynx normal, moist mucous membranes Neck Exam: normal inspection, non-tender, supple, full range of motion Respiratory Exam: normal breath sounds, lungs clear, airway intact, No respiratory distress Cardiovascular Exam: regular rate/rhythm, normal heart sounds, normal peripheral pulses Gastrointestinal/Abdomen Exam: soft, normal bowel sounds, No tenderness, No mass Back Exam: normal inspection, normal range of motion, No CVA tenderness, No vertebral tenderness Extremity Exam: normal inspection, normal range of motion, pelvis stable Neurologic Exam: alert, oriented x 3, cooperative, normal mood/affect, nml cerebellar function, nml station & gait, sensation nml, No motor deficits Skin Exam: normal color, warm, dry, No rash Lymphatic Exam: No adenopathy SpO2 Interpretation: normal SpO2: 99 O2 Delivery: Room Air - Course Nursing assessment & vital signs reviewed: Yes Ordered Tests: Active Orders 24 hr Category Date Time Status Vp Organizational Development STAT Care 12/11/24 10:13 Active IV Insertion STAT Care 12/11/24 10:13 Active Pulse Oximetry (ED) STAT Care 12/11/24 10:13 Active LOWER EXTREMITY WITH CONTRAST [CT] Stat Exams 12/11/24 10:16 Completed BLOOD CULTURE Stat Lab 12/11/24 10:35 Received CBC W DIFF Stat Lab 12/11/24 10:35 Completed CMP Stat Lab 12/11/24 10:35 Completed Lactic Acid Stat Lab 12/11/24 10:13 Completed UA W/RFX UR CULTURE Stat Lab 12/11/24 10:13 Ordered Medication Summary Discontinued Medications Generic Name Dose Route Start Last Admin Trade Name Freq PRN Reason Stop Dose Admin Albuterol/Ipratropium Confirm 12/11/24 10:55 Ipratropium/Albuterol Sulfate 3 Ml Ampul.Neb Administered 12/11/24 10:56 Dose 3 ml IH .STK-MED ONE Lab/Rad Data: Laboratory Result Diagrams 12/11/24 10:35 12/11/24 10:35 Laboratory Results 12/11/24 12/11/24 12/11/24 Range/Units 10:35 10:35 10:13 WBC 7.6 (4.23-9.07) x10^3/uL RBC 4.31 L (4.63-6.08) x10^6/uL Hgb 8.3 L (13.7-17.5) g/dL Hct 28.9 L (40.1-51.0) % MCV 67.1 L (79.0-92.2) fL MCH 19.3 L (25.7-32.2) pg MCHC 28.7 L (32.3-36.5) g/dL RDW 18.4 H (11.6-14.4) % Plt Count 336 (163-337) x10^3/uL MPV 9.5 (9.4-12.4) fL Gran % 85.2 H (34.0-67.9) % Immature Gran % (Auto) 0.3 (0.001-0.429) % Nucleat RBC Rel Count 0.0 (0.00-0.2) % Eos # (Auto) 0.10 (0.04-0.54) x10^3/uL Immature Gran # (Auto) 0.02 (0.001-0.031) x10^3u/L Absolute Lymphs (auto) 0.40 L (1.32-3.57) x10^3/uL Absolute Monos (auto) 0.57 (0.30-0.82) x10^3/uL Absolute Nucleated RBC 0.00 (0.00-0.012) x10^3u/L Lymphocytes % 5.3 L (21.8-53.1) % Monocytes % 7.5 (5.3-12.2) % Eosinophils % 1.3 (0.8-7.0) % Basophils % 0.4 (0.2-1.2) % Absolute Granulocytes 6.44 H (1.78-5.38) x10^3/uL Basophils # 0.03 (0.01-0.08) x10^3/uL Sodium 140 (135-145) mmol/L Potassium 4.3 (3.5-5.1) mmol/L Chloride 101 (98-107) mmol/L Carbon Dioxide 30 (22-30) mmol/L Anion Gap 12.7 (5-15) MEQ/L BUN 11 (9-20) mg/dL Creatinine 0.72 (0.66-1.25) mg/dL Estimated GFR 104.6 ML/MIN Glucose 200 H (74-106) mg/dL Lactic Acid 1.4 (0.4-2.0) Calcium 8.2 L (8.4-10.2) mg/dL Total Bilirubin 0.60 (0.2-1.3) mg/dL AST 17 (17-59) U/L ALT 19 (0-50) U/L Alkaline Phosphatase 139 H (38-126) U/L Serum Total Protein 6.9 (6.3-8.2) g/dL Albumin 3.6 (3.5-5.0) g/dL Slides for Path Review YES - Progress Progress: improved Progress Note: I spoke to vascular surgeon at [facility] at 5:23 PM. She believes the patient requires a surgical debridement. However they are not able to accept transfer at this time. I 12/11/24 17:[address]Alicea oswald for [address] who accepts transfer at 7:37 PM. 59-year-old male presents to our ED for evaluation of a painful sore to his right leg. CT scan negative for abscess or infection. Podiatry service evaluated patient bedside and advised transfer to facility with vascular services. Patient evaluated bedside by Price Jones 12/11/24 19:36 Complexity of problem addressed is moderate acute complicated. No critical care time. Complex of data reviewed and analyzed is moderate. Test ordered test reviewed results analyzed and correlated clinically with history and physical exam. Management discussed with a vascular surgeon and hospitalist of outside hospitals. Risk of complication and or risk of morbidity/mortality of patient management is high. Patient requires hospitalization/transfer to higher level of care. Vital stable. Time spent to discharge patient is approximately 20 minutes. Plan of care established for shared decision making. No social determinants of health present to impede follow-up. Portions of this note were created with voice recognition technology. There may be grammatical, spelling, punctuation or sound alike errors 12/11/24 20:47 Counseled pt/family regarding: lab results, diagnosis, rad results - Departure Departure Disposition: Transfer Clinical Impression: Leg ulcer Condition: Stable Critical Care Time: No Referrals: EVA ODELL FNP [Primary Care Provider] - Follow up/PCP as directed
[2024-12-11 10:52] LABS: Absolute Neutrophil Ct (ANC) 6.44 x10^3/uL (1.78-5.38); BASOPHIL % 0.4 % (0.2-1.2); Basophil (Absolute #) 0.03 x10^3/uL (0.01-0.08); Eosinophil % 1.3 % (0.8-7.0); Hematocrit 28.9 % (40.1-51.0); Hemoglobin 8.3 g/dL (13.7-17.5); IMMATURE GRAN # 0.02 x10^3u/L (0.001-0.031); IMMATURE GRAN % 0.3 % (0.001-0.429); Lymphocytes % 5.3 % (21.8-53.1); Mean Cell Volume 67.1 fL (79.0-92.2); Mean Corpuscular Hemoglobin 19.3 pg (25.7-32.2); Mean Corpuscular Hgb Concent. 28.7 g/dL (32.3-36.5); Mean Platelet Volume 9.5 fL (9.4-12.4); Monocyte (Absolute #) 0.57 x10^3/uL (0.30-0.82); Monocytes % 7.5 % (5.3-12.2); Neutrophil % 85.2 % (34.0-67.9); Platelet Count 336 x10^3/uL (163-337); Red Blood Count 4.31 x10^6/uL (4.63-6.08); Red Cell Distribution Width 18.4 % (11.6-14.4); White Blood Count 7.6 x10^3/uL (4.23-9.07)
[2024-12-11] MEDS ORDERED: DUONEB 0.5-3 MG/3 ml Neb IH ONE (10:55)
[2024-12-11 11:00] LABS: ALBUMIN 3.6 g/dL (3.5-5.0); ANION GAP 12.7 MEQ/L (5-15); BILIRUBIN,TOTAL 0.6 mg/dL (0.2-1.3); Calcium 8.2 mg/dL (8.4-10.2); Creatinine 1 0.72 mg/dL (0.66-1.25); EST GLOMERULAR FILTRATION RATE 104.6 ML/MIN; Potassium 4.3 mmol/L (3.5-5.1); Total Protein 6.9 g/dL (6.3-8.2)
--- NOTE | 2024-12-11 13:34 | XRAY ---
Indication: Pain. Abscess wound. Multiple contiguous axial images obtained through the right upper leg to include hip and knee joint using 100 cc Isovue 370 contrast. Sagittal and coronal reformatted images obtained. Comparison: November 03, 2024 Mid to distal leg, knee, and visualized proximal lower leg again demonstrates diffuse cutaneous and subcutaneous soft tissue swelling/edema grossly unchanged. Greatest extent again seen posteriorly and medially. Again no walled off fluid collection, abscess, or soft tissue emphysema. There remains grossly stable enlarged subcutaneous venous varicosities again up to 2 cm in diameter. Right groin demonstrates a few small benign-appearing lymph nodes. No pathologic lymphadenopathy. Again mild diffuse scattered arteriosclerotic calcifications. Osseous structures intact without suspicious bony lesions or osseous destructive process. Knee again demonstrates moderate tricompartmental degenerative arthropathy with tiny effusion. Visualized pelvic contents are unremarkable. Impression: 1. Grossly stable cutaneous and subcutaneous soft tissue swelling/edema. Again multiple right inguinal lymph nodes presumed reactive. Continued negative for walled off fluid collection/abscess. 2. Grossly stable large posterior subcutaneous venous varicosities. 3. Again incidental right knee tricompartmental degenerative arthropathy and arteriosclerotic disease.
[2024-12-11 15:45] LABS: Slide Review 1 YES
--- NOTE | 2024-12-11 18:12 | PCM.CONS ---
Podiatry HPI - Consult Date of Consultation Date: 12/11/24 Consulting Provider: IMTIAZ LOMBARDO DPM - [facility] History of Present Illness: seen in emergency department for venous insufficiency ulcer to the bilateral lower extremities. Main concern today is worsening pain redness and swelling to the right upper extremity. This is associated with a large painful varicose vein to the right leg that has become inflamed and ulcerated. This has been addressed in the past before with consults with general surgery recommending referral to vascular. Patient was unable to follow up due to transportation issues. Medications & Allergies Home Medications: Home Medication List Ergocalciferol (Vitamin D2) [Vitamin D2] 1,250 mcg PO WEEKLY 02/05/23 [History Confirmed 12/11/24] Metoprolol Tartrate 25 mg [Lopressor 25MG Tab] 25 mg PO BID 02/05/23 [History Confirmed 12/11/24] Insulin Glargine [Lantus Insulin] 66 unit SQ BID 10/18/23 [History Confirmed 12/11/24] Potassium Chloride 10 meq PO BID 02/03/24 [History Confirmed 12/11/24] Atorvastatin Calcium 40 mg PO DAILY 06/12/24 [History Confirmed 12/11/24] Rivaroxaban [Xarelto] 20 mg PO HS 06/12/24 [History Confirmed 12/11/24] Ropinirole HCl 0.5 mg [Requip 0.5 MG] 0.5 mg PO HS 06/12/24 [History Confirmed 12/11/24] Furosemide 20 mg [Lasix 20 mg] 20 mg PO BID 11/02/24 [History Confirmed 12/11/24] Insulin Lispro [Humalog] 14 unit SQ LUNCH 11/02/24 [History Confirmed 12/11/24] Insulin Lispro [Humalog] 24 unit SQ BREAKFAST 11/02/24 [History Confirmed 12/11/24] Insulin Lispro [Humalog] 26 unit SQ DINNER 11/02/24 [History Confirmed 12/11/24] Loperamide HCl 2 mg [Imodium 2 mg] 2 mg PO Q2H/PRN PRN 11/02/24 [History Confirmed 12/11/24] Torsemide 20 mg [Demadex 20 mg] 20 mg PO BID 12/11/24 [History Confirmed 12/11/24] Allergies/Adverse Reactions: Allergies Allergy/AdvReac Type Severity Reaction Status Date / Time clindamycin Allergy Verified 12/11/24 10:14 Penicillins Allergy Verified 12/11/24 10:14 Sulfa (Sulfonamide Allergy Verified 12/11/24 10:14 Antibiotics) - Past Medical History Past Medical History: Yes Neurological History: Peripheral Neuropathy ENT History: No Pertinent History Cardiac History: Angina, Arrhythmia Respiratory History: No Pertinent History Endocrine Medical History: Diabetes Type II Musculoskelatal History: Osteoarthritis GI Medical History: No Pertinent History History: No Pertinent History Pyscho-Social History: No Pertinent History Male Reproductive Disorders: No Pertinent History Comment: HISTORY OF B LE WOUNDS, PARTIAL SEPTUS INVERTUS, RUPTURED L ROTATOR CUFF. - Past Surgical History Past Surgical History: Yes Neuro Surgical History: No Pertinent History Cardiac History: No Pertinent History Respiratory Surgery: No Pertinent History GI Surgical History: No Pertinent History Genitourinary Surgical Hx: No Pertinent History Musculskeletal Surgical Hx: No Pertinent History Male Surgical History: No Pertinent History Other Surgical History: PINWHEEL DRAIN IN BACK TO DRAIN FLUIDS_DONE BY [employer] MEZA 2021 Significant Family History: cancer - Social History Smoking Status: Never smoker Exposure to second hand smoke: No Alcohol: None Drug Use: none - Social Determinants of Health Will the patient participate in the screening: Yes Do you worry about a steady place to live?: No Do you have any problems with any of the following?: No known problems In the past 12 months,have you had to go without utilities?: Yes Have you or anyone in your house had to go without enough: Yes Transportation Issues: No Has anyone in your support network made you feel unsafe?: No Does the patient want assistance with any of the above?: No Physical Exam - Narrative Narrative Physical Exam: Podiatry Physical Exam Results - Labs Lab/Micro Results: Lab Results-Last 24 Hours 12/11/24 12/11/24 12/11/24 Range/Units 10:13 10:35 10:35 WBC 7.6 (4.23-9.07) x10^3/uL RBC 4.31 L (4.63-6.08) x10^6/uL Hgb 8.3 L (13.7-17.5) g/dL Hct 28.9 L (40.1-51.0) % MCV 67.1 L (79.0-92.2) fL MCH 19.3 L (25.7-32.2) pg MCHC 28.7 L (32.3-36.5) g/dL RDW 18.4 H (11.6-14.4) % Plt Count 336 (163-337) x10^3/uL MPV 9.5 (9.4-12.4) fL Gran % 85.2 H (34.0-67.9) % Immature Gran % (Auto) 0.3 (0.001-0.429) % Nucleat RBC Rel Count 0.0 (0.00-0.2) % Eos # (Auto) 0.10 (0.04-0.54) x10^3/uL Immature Gran # (Auto) 0.02 (0.001-0.031) x10^3u/L Absolute Lymphs (auto) 0.40 L (1.32-3.57) x10^3/uL Absolute Monos (auto) 0.57 (0.30-0.82) x10^3/uL Absolute Nucleated RBC 0.00 (0.00-0.012) x10^3u/L Lymphocytes % 5.3 L (21.8-53.1) % Monocytes % 7.5 (5.3-12.2) % Eosinophils % 1.3 (0.8-7.0) % Basophils % 0.4 (0.2-1.2) % Absolute Granulocytes 6.44 H (1.78-5.38) x10^3/uL Basophils # 0.03 (0.01-0.08) x10^3/uL Sodium 140 (135-145) mmol/L Potassium 4.3 (3.5-5.1) mmol/L Chloride 101 (98-107) mmol/L Carbon Dioxide 30 (22-30) mmol/L Anion Gap 12.7 (5-15) MEQ/L BUN 11 (9-20) mg/dL Creatinine 0.72 (0.66-1.25) mg/dL Estimated GFR 104.6 ML/MIN Glucose 200 H (74-106) mg/dL Lactic Acid 1.4 (0.4-2.0) Calcium 8.2 L (8.4-10.2) mg/dL Total Bilirubin 0.60 (0.2-1.3) mg/dL AST 17 (17-59) U/L ALT 19 (0-50) U/L Alkaline Phosphatase 139 H (38-126) U/L Serum Total Protein 6.9 (6.3-8.2) g/dL Albumin 3.6 (3.5-5.0) g/dL Slides for Path Review YES - Radiology Impressions Radiology Exams & Impressions: Radiology Procedures Category Date Time Status LOWER EXTREMITY WITH CONTRAST [CT] Stat Exams 12/11/24 10:16 Completed Assessment/Plan (1) Cellulitis Current Visit: No Status: Acute Assessment & Plan: of thigh. discussed potential transfer to address issue at this time due to multiple episodes of recurrence with no definitive chain of follow up. Code(s): L03.90 - CELLULITIS, UNSPECIFIED (2) Hyperglycemia Current Visit: No Status: Acute Code(s): R73.9 - HYPERGLYCEMIA, UNSPECIFIED (3) Wound of thigh Current Visit: No Status: Acute Assessment & Plan: recommend referral to vascular for assessment. Code(s): S71.109A - UNSPECIFIED OPEN WOUND, UNSPECIFIED THIGH, INITIAL ENCOUNTER (4) Morbid obesity Current Visit: No Status: Chronic Code(s): E66.01 - MORBID (SEVERE) OBESITY DUE TO EXCESS CALORIES (5) Multiple wounds of skin Current Visit: No Status: Chronic Code(s): T14.8XXA - OTHER INJURY OF UNSPECIFIED BODY REGION, INITIAL ENCOUNTER (6) Peripheral neuropathy Current Visit: No Status: Chronic Code(s): G62.9 - POLYNEUROPATHY, UNSPECIFIED (7) Type 2 diabetes mellitus Current Visit: No Status: Chronic (8) Ulcer of extremity due to chronic venous insufficiency Current Visit: No Status: Chronic Assessment & Plan: unna boots reapplied Wound to the left leg demonstrating fibrotic tissue no debridement preformed today Will continue to monitor in outpatient setting. Patient needs referral for vascular due to worsening progression of thigh varicosity. Code(s): L98.499 - NON-PRESSURE CHRONIC ULCER OF SKIN OF SITES W UNSP SEVERITY; I87.2 - VENOUS INSUFFICIENCY (CHRONIC) (PERIPHERAL)
[2024-12-11 19:34] VITALS: RESP 20
[2024-12-11 20:32] VITALS: BP 142/89; PULSE 79
[2024-12-11 20:53] VITALS: O2SAT 99
== END 2024-12-11 20:52 | disposition short-term general hospital (02) ==
LOC: ED 09:53
DX: L97.118 Non-pressure chronic ulcer of right thigh with other specified severity (principal); E11.42 Type 2 diabetes mellitus with diabetic polyneuropathy; Z79.4 Long term (current) use of insulin; Z79.01 Long term (current) use of anticoagulants; Z79.899 Other long term (current) drug therapy; Z59.12 Inadequate housing utilities; Z59.41 Food insecurity
CPT/HCPCS: 29580; 36415; 73701; 80053; 83605; 85025; 87040; 93041; 94760; 99215; 99284; 99285; A9270-GY

== ENCOUNTER 2024-12-19 11:37 | Observation (INO) | payer MEDICARE, OTHER ==
--- NOTE | 2024-12-19 12:28 | ERPHSYRPT ---
- History of Present Illness Time Seen by Provider: 12/19/24 12:05 Source: patient Exam Limitations: no limitations Patient Subjective Stated Complaint: "I see Dr. Moreno and I was sent to [facility] and released 2 days ago. I got home health aides that are worri ed I'm getting worse. I'm having more pain in my right thigh". Triage Nursing Assessment: Pt presents to ER by ambulance. Pt has hx of chronic wounds to bilateral lower extremities and seeks treatment w/ Dr. Moreno. Pt was recently sent to [facility] for treatment and home health nurse is concerned about spread of infection or possible sepsis. Pt doesn't complain of any new pain, just pain that has been going on for a few months in his right thigh. Rates pain 3/[address] to bilateral legs. Pt is alert and oriented x 3. Denies shortness of breath. Denies nausea/vomiting. States has chronic diarrhea. Believes his gait has became more and more unsteady. Ambulates with two canes on normal basis. Physician History: Patient is a 59-year-old male who lives alone recently discharged from [facility] for evaluation and treatment of a right posterior thigh wound presents to our ED for evaluation of excoriated draining skin at the right inguinal area. No fever no systemic manifestation. Patient reports the area is painful. No trauma. No abdominal pain. Patient is ambulatory. Patient feels he is getting weak. He otherwise feels well. Patient is ambulatory with a walker however he requires assistance. Patient received home health but he believes that this is not enough for him. Patient voices no other complaints or concerns at this time. Timing/Duration: today Severity: moderate Modifying Factors: Improves With: nothing Associated Symptoms: denies symptoms Allergies/Adverse Reactions: clindamycin Allergy (Verified 12/19/24 11:52) Penicillins Allergy (Verified 12/19/24 11:52) Sulfa (Sulfonamide Antibiotics) Allergy (Verified 12/19/24 11:52) Home Medications: Ergocalciferol (Vitamin D2) [Vitamin D2] 1,250 mcg PO WEEKLY 02/05/23 [History] Metoprolol Tartrate 25 mg [Lopressor 25MG Tab] 25 mg PO BID 02/05/23 [H istory] Insulin Glargine [Lantus Insulin] 66 unit SQ BID 10/18/23 [History] Potassium Chloride 10 meq PO BID 02/03/24 [History] Atorvastatin Calcium 40 mg PO DAILY 06/12/24 [History] Rivaroxaban [Xarelto] 20 mg PO HS 06/12/24 [History] Ropinirole HCl 0.5 mg [Requip 0.5 MG] 0.5 mg PO HS 06/12/24 [History] Furosemide 20 mg [Lasix 20 mg] 20 mg PO BID 11/02/24 [History] Insulin Lispro [Humalog] 14 unit SQ LUNCH 11/02/24 [History] Insulin Lispro [Humalog] 24 unit SQ BREAKFAST 11/02/24 [History] Insulin Lispro [Humalog] 26 unit SQ DINNER 11/02/24 [History] Loperamide HCl 2 mg [Imodium 2 mg] 2 mg PO Q2H/PRN PRN 11/02/24 [History] Torsemide 20 mg [Demadex 20 mg] 20 mg PO BID 12/11/24 [History] Hx Tetanus, Diphtheria Vaccination/Date Given: Yes Hx Influenza Vaccination/Date Given: Yes Hx Pneumococcal Vaccination/Date Given: Yes Travel Risk - International Travel Have you traveled outside of the country in past 3 weeks: No - Emerging Infectious Disease Are you exhibiting symptoms associated with any current EIDs: No Symptoms: Cough: New Onset, Fever - Review of Systems Constitutional: No Symptoms, No Fever, No Chills Eyes: No Symptoms Ears, Nose, & Throat: No Symptoms Respiratory: No Symptoms, No Cough, No Dyspnea Cardiac: No Symptoms, No Chest Pain, No Edema, No Syncope Abdominal/Gastrointestinal: No Symptoms, No Abdominal Pain, No Nausea, No Vomiting, No Diarrhea Genitourinary Symptoms: No Symptoms, No Dysuria Musculoskeletal: No Symptoms, No Back Pain, No Neck Pain Skin: No Symptoms, No Rash Neurological: No Symptoms, No Dizziness, No Focal Weakness, No Sensory Changes Psychological: No Symptoms Endocrine: No Symptoms Hematologic/Lymphatic: No Symptoms Immunological/Allergic: No Symptoms All Other Systems: Reviewed and Negative - Past Medical History Pertinent Past Medical History: Yes Neurological History: Peripheral Neuropathy ENT History: No Pertinent History Cardiac History: Angina, Arrhythmia Respiratory History: No Pertinent History Endocrine Medical History: Diabetes Type II Musculoskeletal History: Osteoarthritis GI Medical History: No Pertinent History History: No Pertinent History Psycho-Social History: No Pertinent History Male Reproductive Disorders: No Pertinent History Other Medical History: HISTORY OF B LE WOUNDS, PARTIAL SEPTUS INVERTUS, RUPTURED L ROTATOR CUFF. - Past Surgical History Past Surgical History: Yes Neuro Surgical History: No Pertinent History Cardiac: No Pertinent History Respiratory: No Pertinent History Gastrointestinal: No Pertinent History Genitourinary: No Pertinent History Musculoskeletal: No Pertinent History Male Surgical History: No Pertinent History Other Surgical History: PINWHEEL DRAIN IN BACK TO DRAIN FLUIDS_DONE BY [employer] MEZA 2021 Significant Family History: cancer - Social History Smoking Status: Never smoker Exposure to second hand smoke: No Drug Use: none - Social Determinants of Health Will the patient participate in the screening: Yes Do you worry about a steady place to live?: No Do you have any problems with any of the following?: No known problems In the past 12 months,have you had to go without utilities?: Yes Transportation Issues: No Has anyone in your support network made you feel unsafe?: No Have you or anyone in your house had to go w/o enough food: Yes - Nursing Vital Signs Nursing Vital Signs: Initial Vital Signs Blood Pressure 128/68 12/19/24 11:43 O2 Sat by Pulse Oximetry 96 12/19/24 11:43 Pain Scale Pain Intensity 0 - Physical Exam General Appearance: no apparent distress, alert Eye Exam: PERRL/EOMI, eyes nml inspection Ears, Nose, Throat Exam: normal ENT inspection, pharynx normal, moist mucous membranes Neck Exam: normal inspection, non-tender, supple, full range of motion Respiratory Exam: normal breath sounds, lungs clear, No respiratory distress Cardiovascular Exam: regular rate/rhythm, normal heart sounds, normal peripheral pulses Gastrointestinal/Abdomen Exam: soft, normal bowel sounds, No tenderness, No mass Back Exam: normal inspection, normal range of motion, No CVA tenderness, No vertebral tenderness Extremity Exam: normal inspection, normal range of motion, pelvis stable, other (Excoriated skin right inguinal area with early cellulitis) Neurologic Exam: alert, oriented x 3, cooperative, normal mood/affect, nml cerebellar function, nml station & gait, sensation nml, No motor deficits Skin Exam: normal color, warm, dry, No rash Lymphatic Exam: No adenopathy SpO2 Interpretation: normal SpO2: 98 O2 Delivery: Room Air - Course Nursing assessment & vital signs reviewed: Yes Ordered Tests: Active Orders 24 hr Category Date Time Status IV Insertion STAT Care 12/19/24 12:22 Active Pulse Oximetry (ED) STAT Care 12/19/24 12:22 Active BLOOD CULTURE Stat Lab 12/19/24 12:58 Received CBC W DIFF Stat Lab 12/19/24 12:50 Completed CMP Stat Lab 12/19/24 12:50 Completed Transfer Order Routine Transfer 12/19/24 Ordered Lab/Rad Data: Laboratory Result Diagrams 12/19/24 12:50 12/19/24 12:50 Laboratory Results 12/19/24 12/19/24 Range/Units 12:50 12:50 WBC 9.0 (4.23-9.07) x10^3/uL RBC 4.57 L (4.63-6.08) x10^6/uL Hgb 8.8 L (13.7-17.5) g/dL Hct 30.2 L (40.1-51.0) % MCV 66.1 L (79.0-92.2) fL MCH 19.3 L (25.7-32.2) pg MCHC 29.1 L (32.3-36.5) g/dL RDW 18.6 H (11.6-14.4) % Plt Count 441 H (163-337) x10^3/uL MPV 9.4 (9.4-12.4) fL Gran % 82.2 H (34.0-67.9) % Immature Gran % (Auto) 0.3 (0.001-0.429) % Nucleat RBC Rel Count 0.0 (0.00-0.2) % Eos # (Auto) 0.21 (0.04-0.54) x10^3/uL Immature Gran # (Auto) 0.03 (0.001-0.031) x10^3u/L Absolute Lymphs (auto) 0.57 L (1.32-3.57) x10^3/uL Absolute Monos (auto) 0.76 (0.30-0.82) x10^3/uL Absolute Nucleated RBC 0.00 (0.00-0.012) x10^3u/L Lymphocytes % 6.4 L (21.8-53.1) % Monocytes % 8.5 (5.3-12.2) % Eosinophils % 2.3 (0.8-7.0) % Basophils % 0.3 (0.2-1.2) % Absolute Granulocytes 7.35 H (1.78-5.38) x10^3/uL Basophils # 0.03 (0.01-0.08) x10^3/uL Sodium 140 (135-145) mmol/L Potassium 3.5 (3.5-5.1) mmol/L Chloride 99 (98-107) mmol/L Carbon Dioxide 31 H (22-30) mmol/L Anion Gap 14.4 (5-15) MEQ/L BUN 9 (9-20) mg/dL Creatinine 0.61 L (0.66-1.25) mg/dL Estimated GFR 110.0 ML/MIN Glucose 237 H (74-106) mg/dL Calcium 8.1 L (8.4-10.2) mg/dL Total Bilirubin 0.60 (0.2-1.3) mg/dL AST 18 (17-59) U/L ALT 16 (0-50) U/L Alkaline Phosphatase 103 (38-126) U/L Serum Total Protein 6.0 L (6.3-8.2) g/dL Albumin 3.1 L (3.5-5.0) g/dL Slides for Path Review YES - Progress Progress: improved Progress Note: 59-year-old male presents to our ED for evaluation of a right inguinal skin ulcer. Patient appears to have excoriated skin secondary to pannus approximation/hygiene. Patient reports he lives alone. Patient is known to have chronic wounds. Patient receives home health. Patient states that he cannot live alone any longer. Patient unable to self care. Patient wants to be placed in a intermediate. Portions of this note were created with voice recognition technology. There may be grammatical, spelling, punctuation or sound alike errors Complexity of problem addressed is moderate acute complicated. No critical care time. Complex of data reviewed and analyzed is extensive. Test ordered test reviewed results analyzed and correlated clinically with history and physical exam. Management discussed with hospitalist who accepts admission to observation. Risk of complication and or risk of morbidity/mortality of patient management is high. Patient requires hospitalization for further evaluation and treatment. Vital stable. Time spent admit patient approximately 15 minutes. Plan of care established for shared decision making. No social determinants of health present to impede follow-up. Patient accepted by at 2 PM Portions of this note were created with voice recognition technology. There may be grammatical, spelling, punctuation or sound alike errors 12/19/24 14:18 Counseled pt/family regarding: diagnosis, need for follow-up - Departure Departure Disposition: Observation Clinical Impression: Chronic wound, Generalized weakness, Cellulitis Condition: Stable Critical Care Time: No Referrals: EVA ODELL PAI GOW MANAGER [Primary Care Provider] - Follow up/PCP as directed
[2024-12-19 12:56] LABS: Absolute Neutrophil Ct (ANC) 7.35 x10^3/uL (1.78-5.38); BASOPHIL % 0.3 % (0.2-1.2); Basophil (Absolute #) 0.03 x10^3/uL (0.01-0.08); Eosinophil % 2.3 % (0.8-7.0); Eosinophil (Absolute #) 0.21 x10^3/uL (0.04-0.54); Hematocrit 30.2 % (40.1-51.0); Hemoglobin 8.8 g/dL (13.7-17.5); IMMATURE GRAN # 0.03 x10^3u/L (0.001-0.031); IMMATURE GRAN % 0.3 % (0.001-0.429); Lymphocyte (Absolute #) 0.57 x10^3/uL (1.32-3.57); Lymphocytes % 6.4 % (21.8-53.1); Mean Cell Volume 66.1 fL (79.0-92.2); Mean Corpuscular Hemoglobin 19.3 pg (25.7-32.2); Mean Corpuscular Hgb Concent. 29.1 g/dL (32.3-36.5); Mean Platelet Volume 9.4 fL (9.4-12.4); Monocyte (Absolute #) 0.76 x10^3/uL (0.30-0.82); Monocytes % 8.5 % (5.3-12.2); Neutrophil % 82.2 % (34.0-67.9); Platelet Count 441 x10^3/uL (163-337); Red Blood Count 4.57 x10^6/uL (4.63-6.08); Red Cell Distribution Width 18.6 % (11.6-14.4)
[2024-12-19 13:25] LABS: ALBUMIN 3.1 g/dL (3.5-5.0); ANION GAP 14.4 MEQ/L (5-15); BILIRUBIN,TOTAL 0.6 mg/dL (0.2-1.3); Calcium 8.1 mg/dL (8.4-10.2); Creatinine 1 0.61 mg/dL (0.66-1.25); Potassium 3.5 mmol/L (3.5-5.1)
--- NOTE | 2024-12-19 14:51 | PCM.HP ---
History of Present Illness - Chief Complaint Chief Complaint: Chronic ulcer, excoriated skin left inguinal area Date: 12/19/24 History of Present Illness: Mr. Hidalgo is a 59 year old male with a pmhx of PTSD, peripheral neuropathy, AFIB (xarelto), DMII, and OA. Admitted today for worsening right upper thigh and groin cellulitis. Patient is under the care of Dr. Moreno (podiatry). Reviewed recent cultures with past infections of Staph aureus, MRSA, enterococcus, and psuedomonas noted. Pt states he was sent home after 2 weeks of being at [facility] for wound care he states he was sent home w/o antibiotics and told to use corn starch on areas. Podiatry consulted. Pt states he wants to be placed in a facility as he can no longer take care of himself. When discussing further he states he is not willing to sign over his assets and this has been his response in the past thus preventing him from living at the intermediate. He states if he is discharged or has to give up his assets he will shoot himself. He has a plan and will use a gun to shoot himself. Psych consulted for further eval and possible placement needs for IP psych. Will start IV antibiotics and antifungal meds. He is anxious and irritable with staff. He does not like to be touched he reports thus making it difficult to observe wounds. Pt denies CP, SOB, abd pain, N/V/D. - Review of Systems Constitutional: No Fever, No Chills Eyes: No Symptoms Ears, Nose, & Throat: No Symptoms Respiratory: No Cough, No Short Of Breath Cardiac: No Chest Pain, No Edema, No Syncope Abdominal/Gastrointestinal: No Abdominal Pain, No Nausea, No Vomiting, No Diarrhea Genitourinary Symptoms: No Dysuria Musculoskeletal: No Back Pain, No Neck Pain Skin: Cellulitis, Skin Lesions, No Rash Neurological: No Dizziness, No Focal Weakness, No Sensory Changes Psychological: No Symptoms, Anxiety, Suicidal Ideations, Emotional Lability, Mood Changes Endocrine: No Symptoms Hematologic/Lymphatic: No Symptoms Immunological/Allergic: No Symptoms Medications & Allergies Home Medications: Home Medication List Ergocalciferol (Vitamin D2) [Vitamin D2] 1,250 mcg PO WEEKLY 02/05/23 [History Confirmed 12/19/24] Metoprolol Tartrate 25 mg [Lopressor 25MG Tab] 25 mg PO BID 02/05/23 [History Confirmed 12/19/24] Insulin Glargine [Lantus Insulin] 66 unit SQ BID 10/18/23 [History Confirmed 12/19/24] Potassium Chloride 10 meq PO BID 02/03/24 [History Confirmed 12/19/24] Atorvastatin Calcium 40 mg PO DAILY 06/12/24 [History Confirmed 12/19/24] Rivaroxaban [Xarelto] 20 mg PO HS 06/12/24 [History Confirmed 12/19/24] Ropinirole HCl 0.5 mg [Requip 0.5 MG] 0.5 mg PO HS 06/12/24 [History Confirmed 12/19/24] Furosemide 20 mg [Lasix 20 mg] 20 mg PO BID 11/02/24 [History Confirmed 12/19/24] Insulin Lispro [Humalog] 14 unit SQ LUNCH 11/02/24 [History Confirmed 12/19/24] Insulin Lispro [Humalog] 24 unit SQ BREAKFAST 11/02/24 [History Confirmed 12/19/24] Insulin Lispro [Humalog] 26 unit SQ DINNER 11/02/24 [History Confirmed 12/19/24] Loperamide HCl 2 mg [Imodium 2 mg] 2 mg PO Q2H/PRN PRN 11/02/24 [History Confirmed 12/19/24] Torsemide 20 mg [Demadex 20 mg] 20 mg PO BID 12/11/24 [History Confirmed 12/19/24] Allergies/Adverse Reactions: Allergies Allergy/AdvReac Type Severity Reaction Status Date / Time clindamycin Allergy Verified 12/19/24 11:52 Penicillins Allergy Verified 12/19/24 11:52 Sulfa (Sulfonamide Allergy Verified 12/19/24 11:52 Antibiotics) - Past Medical History Past Medical History: Yes Neurological History: Peripheral Neuropathy ENT History: No Pertinent History Cardiac History: Angina, Arrhythmia Respiratory History: No Pertinent History Endocrine Medical History: Diabetes Type II Musculoskelatal History: Osteoarthritis GI Medical History: No Pertinent History History: No Pertinent History Pyscho-Social History: No Pertinent History Male Reproductive Disorders: No Pertinent History Comment: HISTORY OF B LE WOUNDS, PARTIAL SEPTUS INVERTUS, RUPTURED L ROTATOR CUFF. - Past Surgical History Past Surgical History: Yes Neuro Surgical History: No Pertinent History Cardiac History: No Pertinent History Respiratory Surgery: No Pertinent History GI Surgical History: No Pertinent History Genitourinary Surgical Hx: No Pertinent History Musculskeletal Surgical Hx: No Pertinent History Male Surgical History: No Pertinent History Other Surgical History: PINWHEEL DRAIN IN BACK TO DRAIN FLUIDS_DONE BY [employer] MEZA 2021 Significant Family History: cancer - Social History Smoking Status: Never smoker Exposure to second hand smoke: No Alcohol: None Drug Use: none - Social Determinants of Health Will the patient participate in the screening: Yes Do you worry about a steady place to live?: No Do you have any problems with any of the following?: No known problems In the past 12 months,have you had to go without utilities?: Yes Have you or anyone in your house had to go without enough: Yes Transportation Issues: No Has anyone in your support network made you feel unsafe?: No Does the patient want assistance with any of the above?: No - Physical Exam Vital Signs: Vital Signs - 24 hr Temp Pulse Resp BP BP Pulse Ox 12/19/24 14:21 98 12/19/24 14:00 88 24 116/65 95 12/19/24 13:30 86 18 128/57 94 L 12/19/24 13:00 86 24 143/80 92 L 12/19/24 12:37 96 12/19/24 12:29 93 H 28 H 120/98 98 12/19/24 11:44 97.6 F 98 H 18 128/68 98 12/19/24 11:43 128/68 96 General Appearance: no apparent distress, alert, obese Neurologic Exam: alert, oriented x 3, cooperative, normal mood/affect, nml cerebellar function, nml station & gait, sensation nml, No motor deficits Eye Exam: PERRL/EOMI, eyes nml inspection Ears, Nose, Throat Exam: normal ENT inspection, TMs normal, pharynx normal, moist mucous membranes Neck Exam: normal inspection, non-tender, supple, full range of motion Respiratory Exam: normal breath sounds, lungs clear, No respiratory distress Cardiovascular Exam: regular rate/rhythm, normal heart sounds, normal peripheral pulses Gastrointestinal/Abdomen Exam: soft, normal bowel sounds, No tenderness, No mass Male Genitalia Exam: testicular tenderness Back Exam: normal inspection, normal range of motion, No CVA tenderness, No vertebral tenderness Extremity Exam: normal inspection, normal range of motion, pelvis stable, inflammation (right upper thigh, groin region), tenderness (Right upper thigh) Skin Exam: normal color, warm, dry, other (foul smelling groin- yeast smell), No rash Lymphatic Exam: No adenopathy Results - Labs Lab/Micro Results: Lab Results-Last 24 Hours 12/19/24 12/19/24 Range/Units 12:50 12:50 WBC 9.0 (4.23-9.07) x10^3/uL RBC 4.57 L (4.63-6.08) x10^6/uL Hgb 8.8 L (13.7-17.5) g/dL Hct 30.2 L (40.1-51.0) % MCV 66.1 L (79.0-92.2) fL MCH 19.3 L (25.7-32.2) pg MCHC 29.1 L (32.3-36.5) g/dL RDW 18.6 H (11.6-14.4) % Plt Count 441 H (163-337) x10^3/uL MPV 9.4 (9.4-12.4) fL Gran % 82.2 H (34.0-67.9) % Immature Gran % (Auto) 0.3 (0.001-0.429) % Nucleat RBC Rel Count 0.0 (0.00-0.2) % Eos # (Auto) 0.21 (0.04-0.54) x10^3/uL Immature Gran # (Auto) 0.03 (0.001-0.031) x10^3u/L Absolute Lymphs (auto) 0.57 L (1.32-3.57) x10^3/uL Absolute Monos (auto) 0.76 (0.30-0.82) x10^3/uL Absolute Nucleated RBC 0.00 (0.00-0.012) x10^3u/L Lymphocytes % 6.4 L (21.8-53.1) % Monocytes % 8.5 (5.3-12.2) % Eosinophils % 2.3 (0.8-7.0) % Basophils % 0.3 (0.2-1.2) % Absolute Granulocytes 7.35 H (1.78-5.38) x10^3/uL Basophils # 0.03 (0.01-0.08) x10^3/uL Sodium 140 (135-145) mmol/L Potassium 3.5 (3.5-5.1) mmol/L Chloride 99 (98-107) mmol/L Carbon Dioxide 31 H (22-30) mmol/L Anion Gap 14.4 (5-15) MEQ/L BUN 9 (9-20) mg/dL Creatinine 0.61 L (0.66-1.25) mg/dL Estimated GFR 110.0 ML/MIN Glucose 237 H (74-106) mg/dL Calcium 8.1 L (8.4-10.2) mg/dL Total Bilirubin 0.60 (0.2-1.3) mg/dL AST 18 (17-59) U/L ALT 16 (0-50) U/L Alkaline Phosphatase 103 (38-126) U/L Serum Total Protein 6.0 L (6.3-8.2) g/dL Albumin 3.1 L (3.5-5.0) g/dL Slides for Path Review YES Assessment/Plan (1) Cellulitis Current Visit: Yes Status: Acute Qualifiers: Site of cellulitis: extremity Site of cellulitis of extremity: lower extremity Laterality: right Qualified Code(s): L03.115 - Cellulitis of right lower limb Assessment & Plan: - Groin and right upper thigh - podiatry consult - Doxycycline gave in ER - BC x2 pending - CBC, CMP reviewed - antibiotics Code(s): L03.90 - CELLULITIS, UNSPECIFIED (2) Yeast dermatitis Current Visit: No Status: Acute Assessment & Plan: - Nystatin powder/ pillow cases Code(s): B37.2 - CANDIDIASIS OF SKIN AND NAIL (3) Suicidal ideation Current Visit: Yes Status: Acute Assessment & Plan: - Psych consult - PSYCH to consider IP psych placement - States he will kill himself with a gun if discharged or has no assets to live in a intermediate - Pt states he can no longer take care of himself Code(s): R45.851 - SUICIDAL IDEATIONS (4) Chronic wound Current Visit: Yes Status: Acute Assessment & Plan: - Levaquin and vancomycin- after reviewing previous culture results - podiatry consult - BC x2 pending Code(s): T14.8XXA - OTHER INJURY OF UNSPECIFIED BODY REGION, INITIAL ENCOUNTER (5) Unable to care for self Current Visit: No Status: Acute Assessment & Plan: - Per pt wants intermediate placement but not willing to sign over assets. - Case management - Psych eval Code(s): Z78.9 - OTHER SPECIFIED HEALTH STATUS (6) Anemia Current Visit: No Status: Chronic Assessment & Plan: - Chronic - Hgb 8.8- trend - Anemia panel Code(s): D64.9 - ANEMIA, UNSPECIFIED (7) HLD (hyperlipidemia) Current Visit: No Status: Chronic Assessment & Plan: - Continue statin Code(s): E78.5 - HYPERLIPIDEMIA, UNSPECIFIED (8) HTN (hypertension) Current Visit: No Status: Chronic Assessment & Plan: - BP stable - Continue home meds Code(s): I10 - ESSENTIAL (PRIMARY) HYPERTENSION (9) Major depressive disorder Current Visit: No Status: Chronic Assessment & Plan: - Continue home meds - psych consult Code(s): F32.9 - MAJOR DEPRESSIVE DISORDER, SINGLE EPISODE, UNSPECIFIED (10) Morbid obesity Current Visit: No Status: Chronic Assessment & Plan: - Advised ADA diet and exercise control Code(s): E66.01 - MORBID (SEVERE) OBESITY DUE TO EXCESS CALORIES (11) Type 2 diabetes mellitus Current Visit: No Status: Chronic Assessment & Plan: - A1C 1.79- 11/02/24- uncontrolled - Continue home insulin dosing - Diabetic education provided on good glycemic control for wound healing - Accuchecks ac/hs - Consistent carb diet (12) Restless leg syndrome Current Visit: Yes Status: Chronic Assessment & Plan: - Continue requip (13) Atrial fibrillation Current Visit: Yes Status: Chronic Assessment & Plan: - Continue Xarelto - Tele VTE: Xarelto PPI: Pepcid Next of KIN: [facility]or Loa[facility] [phone] D/C plan: 2-3 days Code status: SCO/DNR Code(s): I48.91 - UNSPECIFIED ATRIAL FIBRILLATION
[2024-12-19 15:58] LABS: Iron 23 ug/dL (49-181); Iron Saturation 9 % (20-39); TIBC 248 ug/dL (261-497)
[2024-12-19] MEDS ORDERED: NYSTOP POWDER 15 GM ONE (16:06)
[2024-12-19] MEDS: LASIX 20 MG PO SCH (16:13)
[2024-12-19] MEDS: NORCO 5/325 MG PO PRN (16:13)
[2024-12-19] MEDS: Levofloxacin 500MG/100ML D5W 500 MG/100 ML BAG IV SCH (16:13)
[2024-12-19] MEDS: NYSTOP POWDER 15 GM TP SCH (16:14)
[2024-12-19 16:31] LABS: Slide Review 1 YES
[2024-12-19] MEDS: HUMALOG SQ SCH (16:50)
[2024-12-19 17:04] LABS: Ferritin 66.6 ng/mL (17.9-464); Folate (Folic Acid) 7.74 ng/mL (2.76 - >20)
[2024-12-19] MEDS: FEOSOL 325 MG PO SCH (17:44)
[2024-12-19] MEDS ORDERED: Narcan 0.4 MG/ML IV PRN (18:57)
[2024-12-19] MEDS: Hydromorphone 1 mg/ml Injection IV PRN (19:00)
[2024-12-19] MEDS: Levaquin 250MG/50ML D5W 250 MG/50 ML BAG IV SCH (19:00)
[2024-12-19] MEDS: VIBRAMYCIN 100 MG*** 100 MG in D5w 100ML Mini Bag 100 ML 100 ML IV SCH (20:31)
[2024-12-19] MEDS: PHARMACY DOSING REQUIRED: VANCOMYCIN IV STA (21:36)
[2024-12-19] MEDS: VANCOMYCIN 1.25 GM/250 ML BAG 1.25 GM/250 ML PIGGYBACK IV SCH (21:45)
[2024-12-19] MEDS: Lopressor 25MG Tab PO SCH (21:51)
[2024-12-19] MEDS: Requip 0.5 MG PO SCH (21:51)
[2024-12-19] MEDS: XARELTO 10 MG TABLET PO SCH (21:51)
[2024-12-19] MEDS: Klor Con PO SCH (21:51)
[2024-12-19] MEDS: Lantus Insulin SQ SCH (22:40)
[2024-12-20 07:39] LABS: Hematocrit 28.6 % (40.1-51.0); Mean Cell Volume 66.5 fL (79.0-92.2); Mean Corpuscular Hemoglobin 18.6 pg (25.7-32.2); Mean Platelet Volume 9.3 fL (9.4-12.4); Platelet Count 384 x10^3/uL (163-337); Red Cell Distribution Width 18.9 % (11.6-14.4); White Blood Count 6.5 x10^3/uL (4.23-9.07)
[2024-12-20 08:02] LABS: ANION GAP 10.6 MEQ/L (5-15); BILIRUBIN,TOTAL 0.6 mg/dL (0.2-1.3); Calcium 7.8 mg/dL (8.4-10.2); Creatinine 1 0.61 mg/dL (0.66-1.25); PREALBUMIN 5.21 mg/dL (17.6-36.0); Potassium 3.6 mmol/L (3.5-5.1); Total Protein 6.1 g/dL (6.3-8.2)
[2024-12-20] MEDS: HUMALOG SQ SCH ×2 (08:09→12:00)
[2024-12-20] MEDS ORDERED: LEVOFLOXACIN 750MG/150ML D5W 750 MG/150 ML BAG IV SCH (10:00)
[2024-12-20] MEDS: Pepcid 20 MG PO SCH (10:18)
[2024-12-20] MEDS: Tums EX 750 MG PO SCH (10:19)
[2024-12-20] MEDS: Hydromorphone 1 mg/ml Injection IV PRN (13:21)
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
[2024-12-21 05:34] LABS: Hematocrit 28.6 % (40.1-51.0); Mean Cell Volume 66.5 fL (79.0-92.2); Mean Corpuscular Hemoglobin 18.6 pg (25.7-32.2); Mean Platelet Volume 9.5 fL (9.4-12.4); Platelet Count 425 x10^3/uL (163-337); Red Cell Distribution Width 18.9 % (11.6-14.4); White Blood Count 6.5 x10^3/uL (4.23-9.07)
[2024-12-21 06:32] LABS: Slide Review YES
[2024-12-21 07:06] LABS: ALBUMIN 3.3 g/dL (3.5-5.0); ANION GAP 12.7 MEQ/L (5-15); BILIRUBIN,TOTAL 0.4 mg/dL (0.2-1.3); Calcium 8.4 mg/dL (8.4-10.2); Creatinine 1 0.82 mg/dL (0.66-1.25); EST GLOMERULAR FILTRATION RATE 100.6 ML/MIN; Potassium 3.7 mmol/L (3.5-5.1); Total Protein 6.3 g/dL (6.3-8.2)
--- NOTE | 2024-12-21 07:09 | PCM.CONS ---
Podiatry HPI - Consult Date of Consultation Date: 12/20/24 Reason for Consult: venous insufficency ulcers (Stable- ongoing management) Consulting Provider: IMTIAZ LOMBARDO DPM - [facility] History of Present Illness: Patient is a 59-year-old male who lives alone recently discharged from [facility] for evaluation and treatment of a right posterior thigh wound presents to our ED for evaluation of excoriated draining skin at the right inguinal area. No fever no systemic manifestation. Patient reports the area is painful. No trauma. No abdominal pain. Patient is ambulatory. Patient feels he is getting weak. He otherwise feels well. Patient is ambulatory with a walker however he requires assistance. Patient received home health but he believes that this is not enough for him. Patient voices no other complaints or concerns at this time. Medications & Allergies Home Medications: Home Medication List Ergocalciferol (Vitamin D2) [Vitamin D2] 1,250 mcg PO WEEKLY 02/05/23 [History Confirmed 12/19/24] Metoprolol Tartrate 25 mg [Lopressor 25MG Tab] 25 mg PO BID 02/05/23 [History Confirmed 12/19/24] Insulin Glargine [Lantus Insulin] 66 unit SQ BID 10/18/23 [History Confirmed 12/19/24] Potassium Chloride 10 meq PO BID 02/03/24 [History Confirmed 12/19/24] Atorvastatin Calcium 40 mg PO DAILY 06/12/24 [History Confirmed 12/19/24] Rivaroxaban [Xarelto] 20 mg PO HS 06/12/24 [History Confirmed 12/19/24] Ropinirole HCl 0.5 mg [Requip 0.5 MG] 0.5 mg PO HS 06/12/24 [History Confirmed 12/19/24] Furosemide 20 mg [Lasix 20 mg] 20 mg PO BID 11/02/24 [History Confirmed 12/19/24] Insulin Lispro [Humalog] 14 unit SQ LUNCH 11/02/24 [History Confirmed 12/19/24] Insulin Lispro [Humalog] 24 unit SQ BREAKFAST 11/02/24 [History Confirmed 12/19/24] Insulin Lispro [Humalog] 26 unit SQ DINNER 11/02/24 [History Confirmed 12/19/24] Loperamide HCl 2 mg [Imodium 2 mg] 2 mg PO Q2H/PRN PRN 11/02/24 [History Confirmed 12/19/24] Torsemide 20 mg [Demadex 20 mg] 20 mg PO BID 12/11/24 [History Confirmed 12/19/24] Famotidine 20 mg PO DAILY 12/19/24 [History Confirmed 12/19/24] Allergies/Adverse Reactions: Allergies Allergy/AdvReac Type Severity Reaction Status Date / Time clindamycin Allergy Verified 12/19/24 14:51 Penicillins Allergy Verified 12/19/24 14:51 Sulfa (Sulfonamide Allergy Verified 12/19/24 14:51 Antibiotics) - Past Medical History Past Medical History: Yes Neurological History: Peripheral Neuropathy ENT History: No Pertinent History Cardiac History: Angina, Arrhythmia Respiratory History: No Pertinent History Endocrine Medical History: Diabetes Type II Musculoskelatal History: Osteoarthritis GI Medical History: No Pertinent History History: No Pertinent History Pyscho-Social History: No Pertinent History Male Reproductive Disorders: No Pertinent History Comment: HISTORY OF B LE WOUNDS, PARTIAL SEPTUS INVERTUS, RUPTURED L ROTATOR CUFF. - Past Surgical History Past Surgical History: Yes Neuro Surgical History: No Pertinent History Cardiac History: No Pertinent History Respiratory Surgery: No Pertinent History GI Surgical History: No Pertinent History Genitourinary Surgical Hx: No Pertinent History Musculskeletal Surgical Hx: No Pertinent History Male Surgical History: No Pertinent History Other Surgical History: PINWHEEL DRAIN IN BACK TO DRAIN FLUIDS_DONE BY [employer] MEZA 2021 Significant Family History: cancer - Social History Smoking Status: Never smoker Exposure to second hand smoke: No Alcohol: None Drug Use: none - Social Determinants of Health Will the patient participate in the screening: Yes Do you worry about a steady place to live?: No Do you have any problems with any of the following?: No known problems In the past 12 months,have you had to go without utilities?: Yes Have you or anyone in your house had to go without enough: Yes Transportation Issues: No Has anyone in your support network made you feel unsafe?: No Does the patient want assistance with any of the above?: No Physical Exam - Narrative Narrative Physical Exam: Podiatry Physical Exam Results - Labs Lab/Micro Results: Lab Results-Last 24 Hours 12/19/24 12/19/24 12/20/24 Range/Units 12:50 12:50 07:25 WBC 9.0 6.5 (4.23-9.07) x10^3/uL RBC 4.57 L 4.30 L (4.63-6.08) x10^6/uL Hgb 8.8 L 8.0 L (13.7-17.5) g/dL Hct 30.2 L 28.6 L (40.1-51.0) % MCV 66.1 L 66.5 L (79.0-92.2) fL MCH 19.3 L 18.6 L (25.7-32.2) pg MCHC 29.1 L 28.0 L (32.3-36.5) g/dL RDW 18.6 H 18.9 H (11.6-14.4) % Plt Count 441 H 384 H (163-337) x10^3/uL MPV 9.4 9.3 L (9.4-12.4) fL Gran % 82.2 H (34.0-67.9) % Immature Gran % (Auto) 0.3 (0.001-0.429) % Nucleat RBC Rel Count 0.0 (0.00-0.2) % Eos # (Auto) 0.21 (0.04-0.54) x10^3/uL Immature Gran # (Auto) 0.03 (0.001-0.031) x10^3u/L Absolute Lymphs (auto) 0.57 L (1.32-3.57) x10^3/uL Absolute Monos (auto) 0.76 (0.30-0.82) x10^3/uL Absolute Nucleated RBC 0.00 (0.00-0.012) x10^3u/L Lymphocytes % 6.4 L (21.8-53.1) % Monocytes % 8.5 (5.3-12.2) % Eosinophils % 2.3 (0.8-7.0) % Basophils % 0.3 (0.2-1.2) % Absolute Granulocytes 7.35 H (1.78-5.38) x10^3/uL Basophils # 0.03 (0.01-0.08) x10^3/uL Sodium 140 (135-145) mmol/L Potassium 3.5 (3.5-5.1) mmol/L Chloride 99 (98-107) mmol/L Carbon Dioxide 31 H (22-30) mmol/L Anion Gap 14.4 (5-15) MEQ/L BUN 9 (9-20) mg/dL Creatinine 0.61 L (0.66-1.25) mg/dL Estimated GFR 110.0 ML/MIN Glucose 237 H (74-106) mg/dL Calcium 8.1 L (8.4-10.2) mg/dL Total Bilirubin 0.60 (0.2-1.3) mg/dL AST 18 (17-59) U/L ALT 16 (0-50) U/L Alkaline Phosphatase 103 (38-126) U/L Serum Total Protein 6.0 L (6.3-8.2) g/dL Albumin 3.1 L (3.5-5.0) g/dL Prealbumin (17.6-36.0) mg/dL Slides for Path Review YES 12/20/24 12/21/24 Range/Units 07:25 04:50 WBC 6.5 (4.23-9.07) x10^3/uL RBC 4.30 L (4.63-6.08) x10^6/uL Hgb 8.0 L (13.7-17.5) g/dL Hct 28.6 L (40.1-51.0) % MCV 66.5 L (79.0-92.2) fL MCH 18.6 L (25.7-32.2) pg MCHC 28.0 L (32.3-36.5) g/dL RDW 18.9 H (11.6-14.4) % Plt Count 425 H (163-337) x10^3/uL MPV 9.5 (9.4-12.4) fL Gran % (34.0-67.9) % Immature Gran % (Auto) (0.001-0.429) % Nucleat RBC Rel Count (0.00-0.2) % Eos # (Auto) (0.04-0.54) x10^3/uL Immature Gran # (Auto) (0.001-0.031) x10^3u/L Absolute Lymphs (auto) (1.32-3.57) x10^3/uL Absolute Monos (auto) (0.30-0.82) x10^3/uL Absolute Nucleated RBC (0.00-0.012) x10^3u/L Lymphocytes % (21.8-53.1) % Monocytes % (5.3-12.2) % Eosinophils % (0.8-7.0) % Basophils % (0.2-1.2) % Absolute Granulocytes (1.78-5.38) x10^3/uL Basophils # (0.01-0.08) x10^3/uL Sodium 139 (135-145) mmol/L Potassium 3.6 (3.5-5.1) mmol/L Chloride 99 (98-107) mmol/L Carbon Dioxide 33 H (22-30) mmol/L Anion Gap 10.6 (5-15) MEQ/L BUN 7 L (9-20) mg/dL Creatinine 0.61 L (0.66-1.25) mg/dL Estimated GFR 110.0 ML/MIN Glucose 174 H (74-106) mg/dL Calcium 7.8 L (8.4-10.2) mg/dL Total Bilirubin 0.60 (0.2-1.3) mg/dL AST 16 L (17-59) U/L ALT 12 (0-50) U/L Alkaline Phosphatase 97 (38-126) U/L Serum Total Protein 6.1 L (6.3-8.2) g/dL Albumin 3.0 L (3.5-5.0) g/dL Prealbumin 5.21 L (17.6-36.0) mg/dL Slides for Path Review YES Microbiology 12/19/24 12:58 Blood Culture - Preliminary Blood 12/19/24 12:50 Blood Culture - Preliminary Blood Accuchecks Date 12/20/24 Date 12/20/24 Date 12/20/24 Date 12/20/24 Time 22:00 Time 16:55 Time 11:49 Time 07:31 Assessment/Plan (1) Uncontrolled diabetes mellitus Current Visit: No Status: Chronic Qualifiers: Diabetes mellitus type: type 2 Glycemic state: with hyperglycemia Qualified Code(s): E11.65 - Type 2 diabetes mellitus with hyperglycemia Code(s): OCM5771 - (2) Multiple wounds of skin Current Visit: No Status: Chronic Assessment & Plan: Patient examination and evaluation Venous dopplers negative for DVT Patient venous insufficiency has worsened with 3+ pitting edema to bilateral legs Will proceed with compression therapy in the form of unna boots bilaterally. Recommend some form of dieresis as patient recently has healed of chronic ulcerations to the bilateral lower extremity. will follow with you Code(s): T14.8XXA - OTHER INJURY OF UNSPECIFIED BODY REGION, INITIAL ENCOUNTER (3) Ulcer of extremity due to chronic venous insufficiency Current Visit: No Status: Chronic Code(s): L98.499 - NON-PRESSURE CHRONIC ULCER OF SKIN OF SITES W UNSP SEVERITY; I87.2 - VENOUS INSUFFICIENCY (CHRONIC) (PERIPHERAL) (4) Poor social situation Current Visit: No Status: Acute Code(s): Z65.9 - PROBLEM RELATED TO UNSPECIFIED PSYCHOSOCIAL CIRCUMSTANCES (5) Muscular deconditioning Current Visit: No Status: Acute Code(s): R29.898 - OTH SYMPTOMS AND SIGNS INVOLVING THE MUSCULOSKELETAL SYSTEM (6) Ulcer of extremity due to chronic venous insufficiency Current Visit: No Status: Chronic Code(s): L98.499 - NON-PRESSURE CHRONIC ULCER OF SKIN OF SITES W UNSP SEVERITY; I87.2 - VENOUS INSUFFICIENCY (CHRONIC) (PERIPHERAL) (7) Unable to care for self Current Visit: No Status: Acute Code(s): Z78.9 - OTHER SPECIFIED HEALTH STATUS (8) Chronic wound Current Visit: Yes Status: Acute Code(s): T14.8XXA - OTHER INJURY OF UNSPECIFIED BODY REGION, INITIAL ENCOUNTER (9) Generalized weakness Current Visit: Yes Status: Acute Code(s): R53.1 - WEAKNESS (10) Suicidal ideation Current Visit: Yes Status: Acute Code(s): R45.851 - SUICIDAL IDEATIONS
[2024-12-21] MEDS: TROUGH DRUG LEVELS IJ ONE (11:50)
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
[2024-12-21] MEDS: IMODIUM 2 MG PO PRN (17:48)
[2024-12-22 04:50] LABS: Hematocrit 27.2 % (40.1-51.0); Hemoglobin 7.7 g/dL (13.7-17.5); Mean Cell Volume 66.2 fL (79.0-92.2); Mean Corpuscular Hemoglobin 18.7 pg (25.7-32.2); Mean Corpuscular Hgb Concent. 28.3 g/dL (32.3-36.5); Mean Platelet Volume 9.1 fL (9.4-12.4); Platelet Count 393 x10^3/uL (163-337); Red Blood Count 4.11 x10^6/uL (4.63-6.08); Red Cell Distribution Width 18.9 % (11.6-14.4); White Blood Count 6.4 x10^3/uL (4.23-9.07)
[2024-12-22 05:02] LABS: ALBUMIN 3.2 g/dL (3.5-5.0); BILIRUBIN,TOTAL 0.3 mg/dL (0.2-1.3); Calcium 8.5 mg/dL (8.4-10.2); Creatinine 1 0.69 mg/dL (0.66-1.25); EST GLOMERULAR FILTRATION RATE 105.9 ML/MIN; Potassium 3.5 mmol/L (3.5-5.1); Total Protein 5.9 g/dL (6.3-8.2)
[2024-12-22 07:22] LABS: Slide Review YES
[2024-12-22] MEDS: Acidophilus TABLET PO SCH (10:18)
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
[2024-12-23 06:03] LABS: Hematocrit 27.1 % (40.1-51.0); Hemoglobin 7.5 g/dL (13.7-17.5); Mean Cell Volume 66.4 fL (79.0-92.2); Mean Corpuscular Hemoglobin 18.4 pg (25.7-32.2); Mean Corpuscular Hgb Concent. 27.7 g/dL (32.3-36.5); Platelet Count 385 x10^3/uL (163-337); Red Blood Count 4.08 x10^6/uL (4.63-6.08); Red Cell Distribution Width 19.3 % (11.6-14.4); White Blood Count 7.3 x10^3/uL (4.23-9.07)
[2024-12-23] MEDS ORDERED: D5w 100ML Mini Bag 100 ML 100 ML IV ONE (06:19)
[2024-12-23 06:22] LABS: ALBUMIN 3.2 g/dL (3.5-5.0); ANION GAP 14.7 MEQ/L (5-15); BILIRUBIN,TOTAL 0.2 mg/dL (0.2-1.3); Calcium 8.5 mg/dL (8.4-10.2); Creatinine 1 0.69 mg/dL (0.66-1.25); EST GLOMERULAR FILTRATION RATE 105.9 ML/MIN; Total Protein 6.2 g/dL (6.3-8.2)
[2024-12-23 06:31] LABS: Potassium 4.4 mmol/L (3.5-5.1)
[2024-12-23 07:35] LABS: Slide Review YES
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
[2024-12-23] MEDS: Seroquel 25 MG PO SCH (10:32)
[2024-12-24 06:10] LABS: Hematocrit 27.6 % (40.1-51.0); Mean Cell Volume 65.9 fL (79.0-92.2); Mean Corpuscular Hemoglobin 19.1 pg (25.7-32.2); Platelet Count 415 x10^3/uL (163-337); Red Blood Count 4.19 x10^6/uL (4.63-6.08); Red Cell Distribution Width 19.6 % (11.6-14.4); White Blood Count 6.7 x10^3/uL (4.23-9.07)
[2024-12-24 06:30] LABS: ALBUMIN 3.2 g/dL (3.5-5.0); ANION GAP 14.8 MEQ/L (5-15); BILIRUBIN,TOTAL 0.2 mg/dL (0.2-1.3); Calcium 8.4 mg/dL (8.4-10.2); Creatinine 1 0.78 mg/dL (0.66-1.25); EST GLOMERULAR FILTRATION RATE 102.1 ML/MIN; Potassium 4.2 mmol/L (3.5-5.1); Total Protein 6.2 g/dL (6.3-8.2)
[2024-12-24] MEDS: TROUGH DRUG LEVELS IJ ONE (11:11)
[2024-12-24] MEDS: VITAMIN D2 PO SCH (11:14)
[2024-12-24] MEDS ORDERED: D50W 50 ml Abboject IV PRN (11:18)
[2024-12-24] MEDS ORDERED: Glutose 15 GM ORAL GEL PO PRN (11:18)
[2024-12-24] MEDS ORDERED: GlucaGen 1 MG IM PRN (11:18)
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
[2024-12-24] MEDS: Diflucan 100 MG PO ONE (12:45)
[2024-12-24] MEDS: HUMALOG SQ SCH (18:43)
[2024-12-24] MEDS: Lantus Insulin SQ SCH (22:23)
[2024-12-25 05:17] LABS: Hematocrit 26.3 % (40.1-51.0); Hemoglobin 7.6 g/dL (13.7-17.5); Mean Cell Volume 66.1 fL (79.0-92.2); Mean Corpuscular Hemoglobin 19.1 pg (25.7-32.2); Mean Corpuscular Hgb Concent. 28.9 g/dL (32.3-36.5); Mean Platelet Volume 9.5 fL (9.4-12.4); Platelet Count 432 x10^3/uL (163-337); Red Blood Count 3.98 x10^6/uL (4.63-6.08); White Blood Count 7.2 x10^3/uL (4.23-9.07)
[2024-12-25 05:32] LABS: ANION GAP 13.3 MEQ/L (5-15); BILIRUBIN,TOTAL 0.3 mg/dL (0.2-1.3); Calcium 8.4 mg/dL (8.4-10.2); Creatinine 1 0.99 mg/dL (0.66-1.25); EST GLOMERULAR FILTRATION RATE 87.2 ML/MIN; Potassium 4.2 mmol/L (3.5-5.1); Total Protein 5.9 g/dL (6.3-8.2)
--- NOTE | 2024-12-25 05:32 | PCM.NOTE ---
Date and Time: 12/25/24 0527 Subjective Assessment: HPI: Mr. Taylor is a 59-year-old male with a history of PTSD, diabetes, AFib, peripheral neuropathy, and osteoarthritis. He was admitted for worsening right thigh and groin cellulitis, with past infections of Staph aureus, MRSA, and pseudomonas. The patient has had multiple hospitalizations for wound care. He is anxious, irritable, and refuses necessary care, including wound care and medications like nystatin powder for a yeast infection. His mental health is a major concern as he has expressed suicidal thoughts, including plans to use a gun or step in front of a train. Despite multiple psychiatric evaluations, he refuses to sign a safety plan. A medical psychiatric unit placement is being arranged. His blood sugar levels have been fluctuating, with hypoglycemic episodes at night, requiring adjustments to his insulin regimen. He continues to struggle with his wound healing and is non-compliant with recommended treatments. He is awaiting placement at a psychiatric facility for further care. 12/25/24: Met and evaluated patient at the bedside and endorsing minimal pain, rating it 1/10 on the numerical pain scale. When asked about any suicidal or homicidal ideation, the patient initially dismissed previous statements as a joke, asserting he never intended to harm himself. However, when specifically questioned about a prior remark regarding jumping in front of a train, the patient acknowledged making the statement. When asked if he still had such thoughts, the patient merely shrugged and declined to provide further elaboration. Given these concerns, the patient is currently being emergently detained and is awaiting transfer to an inpatient unit for comprehensive psychiatric evaluation and continued wound care. - Review of Systems Constitutional: No Symptoms Eyes: No Symptoms Ears, Nose, & Throat: No Symptoms Respiratory: No Symptoms Cardiac: No Symptoms Abdominal/Gastrointestinal: No Symptoms Genitourinary Symptoms: Testicle Pain, Other (scrotal wound) Skin: Cellulitis, Induration, Skin Lesions Neurological: No Symptoms Psychological: Suicidal Ideations Endocrine: No Symptoms Hematologic/Lymphatic: No Symptoms Immunological/Allergic: No Symptoms Objective Exam General Appearance: no apparent distress Neurologic Exam: alert, oriented x 3, cooperative Wound Assessment: Skin/Wound Assessment Wound/Incision Assessment Start: 12/19/24 15:25 Text: Status: Active Freq: Q6H Protocol: Document 12/25/24 02:00 LB (Rec: 12/25/24 02:20 LB [id number]) Wound/Incision Assessment Right groin/scrotum Wound Assessment Shift Assessment Wound Type excoriation Wound Stage Non Pressure Wound Drainage Amount Minimal Drainage Description Sanguineous General Appearance Open to air,Reddened,Bleeding Right Thigh Wound Assessment Shift Assessment Wound Type ulceration Wound Stage Non Pressure Wound Dressing Status Dry & Intact Primary Dressing abd pads Secondary Dressing Gauze Roll/Wrap Comment dressing CDI Wound Photo Photo Taken No Eye Exam: PERRL Ears, Nose, Throat Exam: normal ENT inspection Neck Exam: normal inspection Respiratory Exam: normal breath sounds, lungs clear Cardiovascular Exam: regular rate/rhythm, normal heart sounds Gastrointestinal/Abdomen Exam: soft, normal bowel sounds Extremity Exam: normal inspection Back Exam: normal inspection Male Genitalia Exam: deferred Rectal Exam: deferred Objective Data Vital Signs: Vital Signs - 24 hr Temp Pulse Resp BP Pulse Ox 12/25/24 03:55 98.5 F 61 17 137/63 92 L 12/25/24 00:00 18 12/24/24 20:00 98.4 F 63 17 130/60 98 12/24/24 16:00 98.3 F 75 18 118/57 95 12/24/24 12:00 97.8 F 61 20 102/57 97 12/24/24 07:34 98.2 F 63 18 124/60 96 Pain Assessment - Last Documented Pain Intensity 0 Pain Scale Used 0-10 Pain Scale,FLACC Intake and Output: Intake & Output 12/22/24 12/23/24 12/24/24 12/25/24 11:59 11:59 11:59 11:59 Intake Total 754 918 7471 1060 Balance 268 931 2704 1060 Lab Results: Lab Results-Last 24 Hours 12/24/24 12/24/24 12/24/24 Range/Units 05:57 05:57 09:29 WBC 6.7 (4.23-9.07) x10^3/uL RBC 4.19 L (4.63-6.08) x10^6/uL Hgb 8.0 L (13.7-17.5) g/dL Hct 27.6 L (40.1-51.0) % MCV 65.9 L (79.0-92.2) fL MCH 19.1 L (25.7-32.2) pg MCHC 29.0 L (32.3-36.5) g/dL RDW 19.6 H (11.6-14.4) % Plt Count 415 H (163-337) x10^3/uL MPV 9.0 L (9.4-12.4) fL Sodium 144 (135-145) mmol/L Potassium 4.2 (3.5-5.1) mmol/L Chloride 105 (98-107) mmol/L Carbon Dioxide 29 (22-30) mmol/L Anion Gap 14.8 (5-15) MEQ/L BUN 26 H (9-20) mg/dL Creatinine 0.78 (0.66-1.25) mg/dL Estimated GFR 102.1 ML/MIN Glucose 103 (74-106) mg/dL POC Glucometer (74 to 106) mg/dL Calcium 8.4 (8.4-10.2) mg/dL Total Bilirubin 0.20 (0.2-1.3) mg/dL AST 32 (17-59) U/L ALT 19 (0-50) U/L Alkaline Phosphatase 120 (38-126) U/L Serum Total Protein 6.2 L (6.3-8.2) g/dL Albumin 3.2 L (3.5-5.0) g/dL Vancomycin Trough 18.90 (10-20) ug/mL 12/24/24 12/25/24 Range/Units 11:08 05:00 WBC 7.2 (4.23-9.07) x10^3/uL RBC 3.98 L (4.63-6.08) x10^6/uL Hgb 7.6 L (13.7-17.5) g/dL Hct 26.3 L (40.1-51.0) % MCV 66.1 L (79.0-92.2) fL MCH 19.1 L (25.7-32.2) pg MCHC 28.9 L (32.3-36.5) g/dL RDW 20.0 H (11.6-14.4) % Plt Count 432 H (163-337) x10^3/uL MPV 9.5 (9.4-12.4) fL Sodium (135-145) mmol/L Potassium (3.5-5.1) mmol/L Chloride (98-107) mmol/L Carbon Dioxide (22-30) mmol/L Anion Gap (5-15) MEQ/L BUN (9-20) mg/dL Creatinine (0.66-1.25) mg/dL Estimated GFR ML/MIN Glucose (74-106) mg/dL POC Glucometer 76 (74 to 106) mg/dL Calcium (8.4-10.2) mg/dL Total Bilirubin (0.2-1.3) mg/dL AST (17-59) U/L ALT (0-50) U/L Alkaline Phosphatase (38-126) U/L Serum Total Protein (6.3-8.2) g/dL Albumin (3.5-5.0) g/dL Vancomycin Trough (10-20) ug/mL Multi-Disciplinary Progress Notes: Multi-Disciplinary Progress Notes 12/24/24 10:27 Pharmacy Note by Jhonatan Britt VANCOMYCIN TROUGH = 18.60 CONTINUE CURRENT DOSE KHAUGER Initialized on 12/24/24 10:27 - END OF NOTE Assessment/Plan (1) Cellulitis Current Visit: Yes Status: Acute Qualifiers: Site of cellulitis: extremity Site of cellulitis of extremity: lower extremity Laterality: right Qualified Code(s): L03.115 - Cellulitis of right lower limb Assessment & Plan: - Groin and right upper thigh/ back side of leg - Podiatry consult- reviewed note and agree with plan - Continue vanc/levaquin - BC x2 negative -Wound culture pending - CBC, CMP reviewed -continue lasix Code(s): L03.90 - CELLULITIS, UNSPECIFIED (2) Bipolar disorder Current Visit: Yes Status: Acute Assessment & Plan: - Start Seroquel 50 BID then increase by 100mg/day up to 200 mg BID. Code(s): F31.9 - BIPOLAR DISORDER, UNSPECIFIED (3) Chronic wound Current Visit: Yes Status: Acute Assessment & Plan: - Levaquin and vancomycin- after reviewing previous culture results - Podiatry consult- reviewed note and agree with plan - BC x2 negative - Wound culture pending - PT for wound care - Refused Burger and scrotal sling to aide in wound care- urinating on self Code(s): T14.8XXA - OTHER INJURY OF UNSPECIFIED BODY REGION, INITIAL ENCOUNTER (4) Diarrhea Current Visit: Yes Status: Acute Assessment & Plan: - Imodium - Education provided on Imodium dosing and not to exceed daily dosing for safety reasons - Probiotics - C-Diff pending - patient declines to collect stool specimen Code(s): R19.7 - DIARRHEA, UNSPECIFIED (5) Generalized weakness Current Visit: Yes Status: Acute Assessment & Plan: -PT/OT Code(s): R53.1 - WEAKNESS (6) Hypocalcemia Current Visit: Yes Status: Acute Assessment & Plan: - Tums BID Code(s): E83.51 - HYPOCALCEMIA (7) Scrotal edema Current Visit: Yes Status: Acute Assessment & Plan: - Pt is incontinent of urine thus causing irritation of skin on legs - Scrotal sling- refused - Place burger to aide in perineal wounds- declined - Cont. lasix Code(s): N50.89 - OTHER SPECIFIED DISORDERS OF THE MALE GENITAL ORGANS (8) Suicidal ideation Current Visit: Yes Status: Acute Assessment & Plan: - States he will kill himself with a gun if discharged or has no assets to live in a fci- Pt stated his original plan was to be hit by a train [place] - Pt states he can no longer take care of himself - Pt refused to sign safety plan advised by mental health provider -Emergency detained and signed by title processor - Phone, tele, and any items that could be used to injure self taken out of room for safety. - pt moved closer to nurses station - Accepted by [facility] for medical psych bed- awaiting bed to open - Pt is on a 72 hour ED hold that started evening- weekends do not count. - Started seroquel 50 BID Code(s): R45.851 - SUICIDAL IDEATIONS (9) Thrombocytosis Current Visit: Yes Status: Acute Assessment & Plan: - Likely 2:2 infection, inflammation, anemia (10) Atrial fibrillation Current Visit: Yes Status: Chronic Assessment & Plan: - Continue Xarelto - Tele Code(s): I48.91 - UNSPECIFIED ATRIAL FIBRILLATION (11) Restless leg syndrome Current Visit: Yes Status: Chronic Assessment & Plan: - Continue requip (12) Unable to care for self Current Visit: No Status: Acute Assessment & Plan: - Per pt wants fci placement but not willing to sign over assets. - Case management consult - Psych eval X2 Code(s): Z78.9 - OTHER SPECIFIED HEALTH STATUS (13) Yeast dermatitis Current Visit: No Status: Acute Assessment & Plan: - Refusing nystatin power - Will only allow staff to use barrier cream on affect areas thus skin not healing - Started Fluconazole 800mg PO once, then 400mg daily thereafter per pharmacy recommendation Code(s): B37.2 - CANDIDIASIS OF SKIN AND NAIL (14) Anemia Current Visit: No Status: Chronic Assessment & Plan: - Chronic - + Iron def anemia - Started ferrous sulfate daily Code(s): D64.9 - ANEMIA, UNSPECIFIED (15) HLD (hyperlipidemia) Current Visit: No Status: Chronic Assessment & Plan: - Continue statin Code(s): E78.5 - HYPERLIPIDEMIA, UNSPECIFIED (16) HTN (hypertension) Current Visit: No Status: Chronic Assessment & Plan: - BP stable - Continue home meds Code(s): I10 - ESSENTIAL (PRIMARY) HYPERTENSION (17) Major depressive disorder Current Visit: No Status: Chronic Assessment & Plan: - Continue home meds Code(s): F32.9 - MAJOR DEPRESSIVE DISORDER, SINGLE EPISODE, UNSPECIFIED (18) Morbid obesity Current Visit: No Status: Chronic Assessment & Plan: - Advised ADA diet and exercise control Code(s): E66.01 - MORBID (SEVERE) OBESITY DUE TO EXCESS CALORIES (19) Type 2 diabetes mellitus Current Visit: No Status: Chronic Assessment & Plan: - A1C 7.19- 11/02/24- uncontrolled - Continue home insulin dosing - Diabetic education provided on good glycemic control for wound healing - Accuchecks ac/hs - Consistent carb diet - Using dexcom - Hypoglycemic episodes - Changed lantus to 60 units BID from 66 units BID - Changed Breakfast and Dinner humalog to 20 units with meals - Keep lunch humalog at 14 units VTE: Xarelto PPI: Pepcid Next of KIN: [facility] Lo[facility] [phone] D/C plan: pending placement
[2024-12-25] MEDS: Diflucan 100 MG PO SCH (10:22)
[2024-12-25] MEDS: HUMALOG SQ SCH (10:24)
[2024-12-25] MEDS ORDERED: Diflucan 100 MG PO ONE (11:39)
--- NOTE | 2024-12-25 16:32 | PCM.NOTE ---
Date and Time: 12/25/24 1631 Subjective Assessment: doing well. legs in dependent position. Physical Exam - Narrative Narrative Physical Exam: Podiatry Physical Exam Objective Data Vital Signs: Vital Signs - 24 hr Temp Pulse Resp BP Pulse Ox 12/25/24 12:00 97.8 F 84 22 121/58 95 12/25/24 08:00 97.1 F 73 20 139/63 93 L 12/25/24 03:55 98.5 F 61 17 137/63 92 L 12/25/24 00:00 18 12/24/24 20:00 98.4 F 63 17 130/60 98 Pain Assessment - Last Documented Pain Intensity 0 Pain Scale Used 0-10 Pain Scale,FLACC Intake and Output: Intake & Output 12/23/24 12/24/24 12/25/24 12/26/24 11:59 11:59 11:59 11:59 Intake Total 790 3170 1300 360 Balance 790 3170 1300 360 Lab Results: Lab Results-Last 24 Hours 12/25/24 12/25/24 Range/Units 05:00 05:00 WBC 7.2 (4.23-9.07) x10^3/uL RBC 3.98 L (4.63-6.08) x10^6/uL Hgb 7.6 L (13.7-17.5) g/dL Hct 26.3 L (40.1-51.0) % MCV 66.1 L (79.0-92.2) fL MCH 19.1 L (25.7-32.2) pg MCHC 28.9 L (32.3-36.5) g/dL RDW 20.0 H (11.6-14.4) % Plt Count 432 H (163-337) x10^3/uL MPV 9.5 (9.4-12.4) fL Sodium 142 (135-145) mmol/L Potassium 4.2 (3.5-5.1) mmol/L Chloride 105 (98-107) mmol/L Carbon Dioxide 28 (22-30) mmol/L Anion Gap 13.3 (5-15) MEQ/L BUN 33 H (9-20) mg/dL Creatinine 0.99 (0.66-1.25) mg/dL Estimated GFR 87.2 ML/MIN Glucose 80 (74-106) mg/dL Calcium 8.4 (8.4-10.2) mg/dL Total Bilirubin 0.30 (0.2-1.3) mg/dL AST 25 (17-59) U/L ALT 18 (0-50) U/L Alkaline Phosphatase 118 (38-126) U/L Serum Total Protein 5.9 L (6.3-8.2) g/dL Albumin 3.0 L (3.5-5.0) g/dL Multi-Disciplinary Progress Notes: Multi-Disciplinary Progress Notes 12/25/24 10:33 Case Management Note by Jud Kurtz DISCUSSED DC PLAN WITH CYNTHIA NOWAK- WILL CONTINUE TO WAIT ON BED AT [facility] AT THIS TIME Initialized on 12/25/24 10:33 - END OF NOTE Assessment/Plan (1) Uncontrolled diabetes mellitus Current Visit: No Status: Chronic Qualifiers: Diabetes mellitus type: type 2 Glycemic state: with hyperglycemia Qualified Code(s): E11.65 - Type 2 diabetes mellitus with hyperglycemia Code(s): [id number] - (2) Multiple wounds of skin Current Visit: No Status: Chronic Code(s): T14.8XXA - OTHER INJURY OF UNSPECIFIED BODY REGION, INITIAL ENCOUNTER (3) Ulcer of extremity due to chronic venous insufficiency Current Visit: No Status: Chronic Assessment & Plan: Patient examination and evaluation Venous dopplers negative for DVT Patient venous insufficiency has worsened with 3+ pitting edema to bilateral legs Will proceed with compression therapy in the form of unna boots bilaterally. Recommend some form of dieresis as patient recently has healed of chronic ulcerations to the bilateral lower extremity. will follow with you Code(s): L98.499 - NON-PRESSURE CHRONIC ULCER OF SKIN OF SITES W UNSP SEVERITY; I87.2 - VENOUS INSUFFICIENCY (CHRONIC) (PERIPHERAL) (4) Poor social situation Current Visit: No Status: Acute Code(s): Z65.9 - PROBLEM RELATED TO UNSPECIFIED PSYCHOSOCIAL CIRCUMSTANCES (5) Muscular deconditioning Current Visit: No Status: Acute Code(s): R29.898 - OTH SYMPTOMS AND SIGNS INVOLVING THE MUSCULOSKELETAL SYSTEM (6) Ulcer of extremity due to chronic venous insufficiency Current Visit: No Status: Chronic Code(s): L98.499 - NON-PRESSURE CHRONIC ULCER OF SKIN OF SITES W UNSP SEVERITY; I87.2 - VENOUS INSUFFICIENCY (CHRONIC) (PERIPHERAL) (7) Unable to care for self Current Visit: No Status: Acute Code(s): Z78.9 - OTHER SPECIFIED HEALTH STATUS (8) Chronic wound Current Visit: Yes Status: Acute Code(s): T14.8XXA - OTHER INJURY OF UNSPECIFIED BODY REGION, INITIAL ENCOUNTER (9) Generalized weakness Current Visit: Yes Status: Acute Code(s): R53.1 - WEAKNESS (10) Suicidal ideation Current Visit: Yes Status: Acute Code(s): R45.851 - SUICIDAL IDEATIONS
[2024-12-25 19:32] LABS: 027 TOX PROD PRESUMPTIVE NEGATIVE (NEGATIVE); TOXIGENIC C. DIFF ORG NEGATIVE (NEGATIVE)
[2024-12-26 05:11] LABS: Absolute Neutrophil Ct (ANC) 4.59 x10^3/uL (1.78-5.38); BASOPHIL % 0.7 % (0.2-1.2); Basophil (Absolute #) 0.05 x10^3/uL (0.01-0.08); Eosinophil % 7.1 % (0.8-7.0); Hematocrit 27.1 % (40.1-51.0); Hemoglobin 7.9 g/dL (13.7-17.5); IMMATURE GRAN # 0.04 x10^3u/L (0.001-0.031); IMMATURE GRAN % 0.6 % (0.001-0.429); Lymphocytes % 18.3 % (21.8-53.1); Mean Cell Volume 65.5 fL (79.0-92.2); Mean Corpuscular Hemoglobin 19.1 pg (25.7-32.2); Mean Corpuscular Hgb Concent. 29.2 g/dL (32.3-36.5); Mean Platelet Volume 9.2 fL (9.4-12.4); Monocyte (Absolute #) 0.61 x10^3/uL (0.30-0.82); Monocytes % 8.6 % (5.3-12.2); Neutrophil % 64.7 % (34.0-67.9); Platelet Count 414 x10^3/uL (163-337); Red Blood Count 4.14 x10^6/uL (4.63-6.08); Red Cell Distribution Width 20.1 % (11.6-14.4); White Blood Count 7.1 x10^3/uL (4.23-9.07)
--- NOTE | 2024-12-26 05:12 | PCM.NOTE ---
Date and Time: 12/26/24 0511 Subjective Assessment: HPI: Mr. Taylor is a 59-year-old male with a history of PTSD, diabetes, AFib, peripheral neuropathy, and osteoarthritis. He was admitted for worsening right thigh and groin cellulitis, with past infections of Staph aureus, MRSA, and pseudomonas. The patient has had multiple hospitalizations for wound care. He is anxious, irritable, and refuses necessary care, including wound care and medications like nystatin powder for a yeast infection. His mental health is a major concern as he has expressed suicidal thoughts, including plans to use a gun or step in front of a train. Despite multiple psychiatric evaluations, he refuses to sign a safety plan. A medical psychiatric unit placement is being arranged. His blood sugar levels have been fluctuating, with hypoglycemic episodes at night, requiring adjustments to his insulin regimen. He continues to struggle with his wound healing and is non-compliant with recommended treatments. He is awaiting placement at a psychiatric facility for further care. 12/25/24: Met and evaluated patient at the bedside and endorsing minimal pain, rating it 1/10 on the numerical pain scale. When asked about any suicidal or homicidal ideation, the patient initially dismissed previous statements as a joke, asserting he never intended to harm himself. However, when specifically questioned about a prior remark regarding jumping in front of a train, the patient acknowledged making the statement. When asked if he still had such thoughts, the patient merely shrugged and declined to provide further elaboration. Given these concerns, the patient is currently being emergently detained and is awaiting transfer to an inpatient unit for comprehensive psychiatric evaluation and continued wound care. 12/26/24: Met with the patient at the bedside, who reports that pain is well-controlled. After reviewing the wound images with the wound care team and consulting podiatr y, no further surgical intervention is required at this time. Wound cultures are growing a gram-negative organism; vancomycin has been discontinued, and Levaquin is being continued. The patient denies current suicidal thoughts, having previously been in the emergently detained for suicidal ideation. He is being transferred to [facility] for inpatient psychiatric care and wound management and awaiting bed. With his ED set to tonight, a consultation with [facility] will be requested for re-evaluation and possible extension of his ED. - Review of Systems Constitutional: No Symptoms Eyes: No Symptoms Ears, Nose, & Throat: No Symptoms Respiratory: No Symptoms Cardiac: No Symptoms Abdominal/Gastrointestinal: Diarrhea Genitourinary Symptoms: No Symptoms Musculoskeletal: No Symptoms Skin: Cellulitis (BLE ), Skin Lesions Neurological: No Symptoms Psychological: No Symptoms Endocrine: No Symptoms Hematologic/Lymphatic: No Symptoms Immunological/Allergic: No Symptoms Objective Exam General Appearance: no apparent distress Neurologic Exam: alert, oriented x 3, cooperative Skin Exam: normal color, other (see wound assessment) Wound Assessment: Skin/Wound Assessment Wound/Incision Assessment Start: 12/19/24 15:25 Text: Status: Active Freq: Q6H Protocol: Document 12/26/24 02:00 MM (Rec: 12/26/24 02:34 MM [id number]) Wound/Incision Assessment Right groin/scrotum Wound Assessment Shift Assessment Wound Type excoriation Wound Stage Non Pressure Wound Drainage Amount Minimal Drainage Description Sanguineous General Appearance Open to air,Reddened,Bleeding Right Thigh Wound Assessment Shift Assessment Wound Type ulceration Wound Stage Non Pressure Wound Dressing Status Changed Primary Dressing abd pads Secondary Dressing Gauze Roll/Wrap Comment Drsg remains CDI Wound Photo Photo Taken No Eye Exam: PERRL Ears, Nose, Throat Exam: normal ENT inspection Neck Exam: normal inspection Respiratory Exam: normal breath sounds, lungs clear Cardiovascular Exam: regular rate/rhythm, normal heart sounds Gastrointestinal/Abdomen Exam: soft, normal bowel sounds Extremity Exam: swelling (BLE) Back Exam: normal inspection Male Genitalia Exam: deferred Rectal Exam: deferred Objective Data Vital Signs: Vital Signs - 24 hr Temp Pulse Resp BP Pulse Ox 12/26/24 04:00 97.9 F 62 18 152/70 98 12/25/24 23:38 98.1 F 60 20 127/59 98 12/25/24 20:00 97.8 F 60 17 127/35 98 12/25/24 16:00 97.9 F 64 20 121/60 97 12/25/24 12:00 97.8 F 84 22 121/58 95 12/25/24 08:00 97.1 F 73 20 139/63 93 L Pain Assessment - Last Documented Pain Intensity 0 Pain Scale Used 0-10 Pain Scale,FLACC Intake and Output: Intake & Output 12/23/24 12/24/24 12/25/24 12/26/24 11:59 11:59 11:59 11:59 Intake Total 790 3170 1300 1364 Balance 790 3170 1300 1364 Lab Results: Lab Results-Last 24 Hours 12/25/24 12/25/24 12/25/24 Range/Units 05:00 05:00 18:50 WBC 7.2 (4.23-9.07) x10^3/uL RBC 3.98 L (4.63-6.08) x10^6/uL Hgb 7.6 L (13.7-17.5) g/dL Hct 26.3 L (40.1-51.0) % MCV 66.1 L (79.0-92.2) fL MCH 19.1 L (25.7-32.2) pg MCHC 28.9 L (32.3-36.5) g/dL RDW 20.0 H (11.6-14.4) % Plt Count 432 H (163-337) x10^3/uL MPV 9.5 (9.4-12.4) fL Sodium 142 (135-145) mmol/L Potassium 4.2 (3.5-5.1) mmol/L Chloride 105 (98-107) mmol/L Carbon Dioxide 28 (22-30) mmol/L Anion Gap 13.3 (5-15) MEQ/L BUN 33 H (9-20) mg/dL Creatinine 0.99 (0.66-1.25) mg/dL Estimated GFR 87.2 ML/MIN Glucose 80 (74-106) mg/dL Calcium 8.4 (8.4-10.2) mg/dL Total Bilirubin 0.30 (0.2-1.3) mg/dL AST 25 (17-59) U/L ALT 18 (0-50) U/L Alkaline Phosphatase 118 (38-126) U/L Serum Total Protein 5.9 L (6.3-8.2) g/dL Albumin 3.0 L (3.5-5.0) g/dL C. difficile Screen NEGATIVE (NEGATIVE) C.difficile [id number] PRESUMPTIVE NEGATIVE (NEGATIVE) Multi-Disciplinary Progress Notes: Multi-Disciplinary Progress Notes 12/25/24 10:33 Case Management Note by Jud Kurtz DISCUSSED DC PLAN WITH CYNTHIA NOWAK- WILL CONTINUE TO WAIT ON BED AT [facility] AT THIS TIME Initialized on 12/25/24 10:33 - END OF NOTE Assessment/Plan (1) Cellulitis Current Visit: Yes Status: Acute Qualifiers: Site of cellulitis: extremity Site of cellulitis of extremity: lower extremity Laterality: right Qualified Code(s): L03.115 - Cellulitis of right lower limb Assessment & Plan: - Groin and right upper thigh/ back side of leg - Podiatry consult- reviewed note and agree with plan - Continue vanc/levaquin - BC x2 negative -Wound culture pending - CBC, CMP reviewed -continue lasix 12/26: -WBC reviewed and WNL at 7.1 -Continue levaquin -Wound cult with gram - ID - discontinue vanc -Continue lasix Code(s): L03.90 - CELLULITIS, UNSPECIFIED (2) Bipolar disorder Current Visit: Yes Status: Acute Assessment & Plan: - Start Seroquel 50 BID Code(s): F31.9 - BIPOLAR DISORDER, UNSPECIFIED (3) Chronic wound Current Visit: Yes Status: Acute Assessment & Plan: - Levaquin and vancomycin- after reviewing previous culture results - Podiatry consult- reviewed note and agree with plan - BC x2 negative - Wound culture pending - PT for wound care - Refused Burger and scrotal sling to aide in wound care- urinating on self 12/26: -Wound culture with gram - ID - dc vanc Code(s): T14.8XXA - OTHER INJURY OF UNSPECIFIED BODY REGION, INITIAL ENCOUNTER (4) Diarrhea Current Visit: Yes Status: Acute Assessment & Plan: - Imodium - Education provided on Imodium dosing and not to exceed daily dosing for safety reasons - Probiotics - C-Diff pending - patient declines to collect stool specimen 12/26: -cdiff negative Code(s): R19.7 - DIARRHEA, UNSPECIFIED (5) Generalized weakness Current Visit: Yes Status: Acute Assessment & Plan: -PT/OT Code(s): R53.1 - WEAKNESS (6) Hypocalcemia Current Visit: Yes Status: Acute Assessment & Plan: - Tums BID -resolved Code(s): E83.51 - HYPOCALCEMIA (7) Scrotal edema Current Visit: Yes Status: Acute Assessment & Plan: - Pt is incontinent of urine thus causing irritation of skin on legs - Scrotal sling- refused - Place burger to aide in perineal wounds- declined - Cont. lasix Code(s): N50.89 - OTHER SPECIFIED DISORDERS OF THE MALE GENITAL ORGANS (8) Suicidal ideation Current Visit: Yes Status: Acute Assessment & Plan: - States he will kill himself with a gun if discharged or has no assets to live in a penitentiary- Pt stated his original plan was to be hit by [place] train [place] - Pt states he can no longer take care of himself - Pt refused to sign safety plan advised by mental health provider -Emergency detained and signed by culture room worker - Phone, tele, and any items that could be used to injure self taken out of room for safety. - pt moved closer to nurses station - Accepted by [facility] for medical psych bed- awaiting bed to open - Pt is on a 72 hour ED hold that started evening- weekends do not count. - Started seroquel 50 BID 12/26: -[facility] pending for transfer- patient reports he is no longer having suicidal thoughts- consult for re-eval with [facility] - ED expires today - may need to get extension Code(s): R45.851 - SUICIDAL IDEATIONS (9) Thrombocytosis Current Visit: Yes Status: Acute Assessment & Plan: - Likely 2:2 infection, inflammation, anemia -improving plts now at 414<432 (10) Atrial fibrillation Current Visit: Yes Status: Chronic Assessment & Plan: - Continue Xarelto - Tele Code(s): I48.91 - UNSPECIFIED ATRIAL FIBRILLATION (11) Restless leg syndrome Current Visit: Yes Status: Chronic Assessment & Plan: - Continue requip (12) Unable to care for self Current Visit: No Status: Acute Assessment & Plan: - Per pt wants penitentiary placement but not willing to sign over assets. - Case management consult - Psych eval X2 12/26: -Psych to re-eval patient- [facility] pending transfer for psych and wound care- may need ext on ED Code(s): Z78.9 - OTHER SPECIFIED HEALTH STATUS (13) Yeast dermatitis Current Visit: No Status: Acute Assessment & Plan: - Refusing nystatin power - Will only allow staff to use barrier cream on affect areas thus skin not healing - Started Fluconazole 800mg PO once, then 400mg daily thereafter per pharmacy recommendation Code(s): B37.2 - CANDIDIASIS OF SKIN AND NAIL (14) Anemia Current Visit: No Status: Chronic Assessment & Plan: - Chronic - + Iron def anemia - Started ferrous sulfate daily Code(s): D64.9 - ANEMIA, UNSPECIFIED (15) HLD (hyperlipidemia) Current Visit: No Status: Chronic Assessment & Plan: - Continue statin Code(s): E78.5 - HYPERLIPIDEMIA, UNSPECIFIED (16) HTN (hypertension) Current Visit: No Status: Chronic Assessment & Plan: - BP stable - Continue home meds Code(s): I10 - ESSENTIAL (PRIMARY) HYPERTENSION (17) Major depressive disorder Current Visit: No Status: Chronic Assessment & Plan: - Continue home meds Code(s): F32.9 - MAJOR DEPRESSIVE DISORDER, SINGLE EPISODE, UNSPECIFIED (18) Morbid obesity Current Visit: No Status: Chronic Assessment & Plan: - Advised ADA diet and exercise control Code(s): E66.01 - MORBID (SEVERE) OBESITY DUE TO EXCESS CALORIES (19) Type 2 diabetes mellitus Current Visit: No Status: Chronic Assessment & Plan: - A1C 7.19- 11/02/24- uncontrolled - Continue home insulin dosing - Diabetic education provided on good glycemic control for wound healing - Accuchecks ac/hs - Consistent carb diet - Using dexcom - Hypoglycemic episodes - Changed lantus to 60 units BID from 66 units BID - Changed Breakfast and Dinner humalog to 20 units with meals - Keep lunch humalog at 14 units 12/26: -Blood sugar improved with above changes VTE: Xarelto PPI: Pepcid Next of KIN: Amor Loaiza [phone] D/C plan: pending placement Code(s): L03.90 - CELLULITIS, UNSPECIFIED (2) Bipolar disorder Current Visit: Yes Status: Acute Code(s): F31.9 - BIPOLAR DISORDER, UNSPECIFIED (3) Chronic wound Current Visit: Yes Status: Acute Code(s): T14.8XXA - OTHER INJURY OF UNSPECIFIED BODY REGION, INITIAL ENCOUNTER (4) Diarrhea Current Visit: Yes Status: Acute Code(s): R19.7 - DIARRHEA, UNSPECIFIED (5) Generalized weakness Current Visit: Yes Status: Acute Code(s): R53.1 - WEAKNESS (6) Hypocalcemia Current Visit: Yes Status: Acute Code(s): E83.51 - HYPOCALCEMIA (7) Scrotal edema Current Visit: Yes Status: Acute Code(s): N50.89 - OTHER SPECIFIED DISORDERS OF THE MALE GENITAL ORGANS (8) Suicidal ideation Current Visit: Yes Status: Acute Code(s): R45.851 - SUICIDAL IDEATIONS (9) Thrombocytosis Current Visit: Yes Status: Acute (10) Atrial fibrillation Current Visit: Yes Status: Chronic Code(s): I48.91 - UNSPECIFIED ATRIAL FIBRILLATION (11) Restless leg syndrome Current Visit: Yes Status: Chronic (12) Unable to care for self Current Visit: No Status: Acute Code(s): Z78.9 - OTHER SPECIFIED HEALTH STATUS (13) Yeast dermatitis Current Visit: No Status: Acute Code(s): B37.2 - CANDIDIASIS OF SKIN AND NAIL (14) Anemia Current Visit: No Status: Chronic Code(s): D64.9 - ANEMIA, UNSPECIFIED (15) HLD (hyperlipidemia) Current Visit: No Status: Chronic Code(s): E78.5 - HYPERLIPIDEMIA, UNSPECIFIED (16) HTN (hypertension) Current Visit: No Status: Chronic Code(s): I10 - ESSENTIAL (PRIMARY) HYPERTENSION (17) Major depressive disorder Current Visit: No Status: Chronic Code(s): F32.9 - MAJOR DEPRESSIVE DISORDER, SINGLE EPISODE, UNSPECIFIED (18) Morbid obesity Current Visit: No Status: Chronic Code(s): E66.01 - MORBID (SEVERE) OBESITY DUE TO EXCESS CALORIES (19) Type 2 diabetes mellitus Current Visit: No Status: Chronic
[2024-12-26 05:30] LABS: ALBUMIN 3.1 g/dL (3.5-5.0); ANION GAP 10.8 MEQ/L (5-15); BILIRUBIN,TOTAL 0.2 mg/dL (0.2-1.3); Calcium 8.6 mg/dL (8.4-10.2); Creatinine 1 0.88 mg/dL (0.66-1.25); EST GLOMERULAR FILTRATION RATE 98.4 ML/MIN; Total Protein 6.2 g/dL (6.3-8.2)
[2024-12-27 04:59] LABS: Absolute Neutrophil Ct (ANC) 4.91 x10^3/uL (1.78-5.38); BASOPHIL % 0.4 % (0.2-1.2); Basophil (Absolute #) 0.03 x10^3/uL (0.01-0.08); Eosinophil % 6.2 % (0.8-7.0); Eosinophil (Absolute #) 0.45 x10^3/uL (0.04-0.54); Hemoglobin 7.9 g/dL (13.7-17.5); IMMATURE GRAN # 0.03 x10^3u/L (0.001-0.031); IMMATURE GRAN % 0.4 % (0.001-0.429); Lymphocyte (Absolute #) 1.25 x10^3/uL (1.32-3.57); Lymphocytes % 17.1 % (21.8-53.1); Mean Cell Volume 65.2 fL (79.0-92.2); Mean Corpuscular Hemoglobin 19.1 pg (25.7-32.2); Mean Corpuscular Hgb Concent. 29.3 g/dL (32.3-36.5); Mean Platelet Volume 9.1 fL (9.4-12.4); Monocyte (Absolute #) 0.62 x10^3/uL (0.30-0.82); Monocytes % 8.5 % (5.3-12.2); Neutrophil % 67.4 % (34.0-67.9); Platelet Count 387 x10^3/uL (163-337); Red Blood Count 4.14 x10^6/uL (4.63-6.08); Red Cell Distribution Width 20.6 % (11.6-14.4); White Blood Count 7.3 x10^3/uL (4.23-9.07)
--- NOTE | 2024-12-27 05:24 | PCM.NOTE ---
Date and Time: 12/27/24 0523 Subjective Assessment: HPI: Mr. Taylor is a 59-year-old male with a history of PTSD, diabetes, AFib, peripheral neuropathy, and osteoarthritis. He was admitted for worsening right thigh and groin cellulitis, with past infections of Staph aureus, MRSA, and pseudomonas. The patient has had multiple hospitalizations for wound care. He is anxious, irritable, and refuses necessary care, including wound care and medications like nystatin powder for a yeast infection. His mental health is a major concern as he has expressed suicidal thoughts, including plans to use a gun or step in front of a train. Despite multiple psychiatric evaluations, he refuses to sign a safety plan. A medical psychiatric unit placement is being arranged. His blood sugar levels have been fluctuating, with hypoglycemic episodes at night, requiring adjustments to his insulin regimen. He continues to struggle with his wound healing and is non-compliant with recommended treatments. He is awaiting placement at a psychiatric facility for further care. 12/25/24: Met and evaluated patient at the bedside and endorsing minimal pain, rating it 1/10 on the numerical pain scale. When asked about any suicidal or homicidal ideation, the patient initially dismissed previous statements as a joke, asserting he never intended to harm himself. However, when specifically questioned about a prior remark regarding jumping in front of a train, the patient acknowledged making the statement. When asked if he still had such thoughts, the patient merely shrugged and declined to provide further elaboration. Given these concerns, the patient is currently being emergently detained and is awaiting transfer to an inpatient unit for comprehensive psychiatric evaluation and continued wound care. 12/26/24: Met with the patient at the bedside, who reports that pain is well-controlled. After reviewing the wound images with the wound care team and consulting podiatry, no further surgical intervention is required at this time. Wound cultures are growing a gram-negative organism; vancomycin has been discontinued, and Levaquin is being continued. The patient denies current suicidal thoughts, having previously been in the emergently detained for suicidal ideation. He is being transferred to [facility] for inpatient psychiatric care and wound management and awaiting bed. With his ED set [facility], a consultation with [facility] will be requested for re-evaluation and possible extension of his ED. 12/27/24: No overnight events noted. Discussed wound culture showing pseudomonas - abx changed to Merem. Patient endorses much improvement in diarrheal episodes and pain. [facility] consulted 12/26/24 for re-evaluation and deemed patient psychologically stable for discharge as he reports he does not have suicidal/homicidal ideations. Patient requesting placement at nursing facility for wound care and antibiotics as he is not able to care for himself at home. He declines transfer to for psychiatric treatment. Denies fever,cough, sob, cp, abdominal pain, MCGUIRE, dizziness, N/V/D. Will have PICC placed for antibiotics. Patient is psychologically stable for rehab stay. - Review of Systems Constitutional: No Symptoms Eyes: No Symptoms Ears, Nose, & Throat: No Symptoms Respiratory: No Symptoms Cardiac: No Symptoms Abdominal/Gastrointestinal: No Symptoms Genitourinary Symptoms: No Symptoms Musculoskeletal: No Symptoms Skin: Cellulitis, Decubiti, Skin Lesions Neurological: No Symptoms Psychological: No Symptoms Endocrine: No Symptoms Hematologic/Lymphatic: No Symptoms Immunological/Allergic: No Symptoms Objective Exam General Appearance: no apparent distress Neurologic Exam: alert, oriented x 3, cooperative Skin Exam: decubitus Wound Assessment: Skin/Wound Assessment Wound/Incision Assessment Start: 12/19/24 15:25 Text: Status: Active Freq: Q6H Protocol: Document 12/27/24 02:00 LB (Rec: 12/27/24 02:08 LB [id number]) Wound/Incision Assessment Right groin/scrotum Wound Assessment Shift Assessment Wound Type excoriation Wound Stage Non Pressure Wound Drainage Amount None General Appearance Open to air,Reddened Right Thigh Wound Assessment Shift Assessment Wound Type ulceration Wound Stage Non Pressure Wound Dressing Status Dry & Intact,Changed Primary Dressing abd pads Secondary Dressing Gauze Roll/Wrap Comment C/D/I Wound Photo Photo Taken No Eye Exam: PERRL Ears, Nose, Throat Exam: normal ENT inspection Neck Exam: normal inspection Respiratory Exam: normal breath sounds, lungs clear Cardiovascular Exam: regular rate/rhythm, normal heart sounds Gastrointestinal/Abdomen Exam: soft, normal bowel sounds Extremity Exam: swelling (BLE edema) Male Genitalia Exam: deferred Rectal Exam: deferred Objective Data Vital Signs: Vital Signs - 24 hr Temp Pulse Resp BP Pulse Ox 12/26/24 20:00 98.3 F 61 17 145/69 100 12/26/24 16:00 98.0 F 70 16 135/56 98 12/26/24 11:55 97.9 F 56 L 16 117/67 98 12/26/24 07:50 97.7 F 63 16 143/55 95 Pain Assessment - Last Documented Pain Intensity 0 Pain Scale Used 0-10 Pain Scale,FLACC Intake and Output: Intake & Output 12/24/24 12/25/24 12/26/24 12/27/24 11:59 11:59 11:59 11:59 Intake Total 3170 1300 1844 1130 Balance 3170 1300 1844 1130 Lab Results: Lab Results-Last 24 Hours 12/26/24 12/27/24 Range/Units 05:06 04:55 WBC 7.3 (4.23-9.07) x10^3/uL RBC 4.14 L (4.63-6.08) x10^6/uL Hgb 7.9 L (13.7-17.5) g/dL Hct 27.0 L (40.1-51.0) % MCV 65.2 L (79.0-92.2) fL MCH 19.1 L (25.7-32.2) pg MCHC 29.3 L (32.3-36.5) g/dL RDW 20.6 H (11.6-14.4) % Plt Count 387 H (163-337) x10^3/uL MPV 9.1 L (9.4-12.4) fL Gran % 67.4 (34.0-67.9) % Immature Gran % (Auto) 0.4 (0.001-0.429) % Nucleat RBC Rel Count 0.0 (0.00-0.2) % Eos # (Auto) 0.45 (0.04-0.54) x10^3/uL Immature Gran # (Auto) 0.03 (0.001-0.031) x10^3u/L Absolute Lymphs (auto) 1.25 L (1.32-3.57) x10^3/uL Absolute Monos (auto) 0.62 (0.30-0.82) x10^3/uL Absolute Nucleated RBC 0.00 (0.00-0.012) x10^3u/L Lymphocytes % 17.1 L (21.8-53.1) % Monocytes % 8.5 (5.3-12.2) % Eosinophils % 6.2 (0.8-7.0) % Basophils % 0.4 (0.2-1.2) % Absolute Granulocytes 4.91 (1.78-5.38) x10^3/uL Basophils # 0.03 (0.01-0.08) x10^3/uL Sodium 143 (135-145) mmol/L Potassium 4.0 (3.5-5.1) mmol/L Chloride 103 (98-107) mmol/L Carbon Dioxide 33 H (22-30) mmol/L Anion Gap 10.8 (5-15) MEQ/L BUN 28 H (9-20) mg/dL Creatinine 0.88 (0.66-1.25) mg/dL Estimated GFR 98.4 ML/MIN Glucose 111 H (74-106) mg/dL Calcium 8.6 (8.4-10.2) mg/dL Total Bilirubin 0.20 (0.2-1.3) mg/dL AST 24 (17-59) U/L ALT 18 (0-50) U/L Alkaline Phosphatase 124 (38-126) U/L Serum Total Protein 6.2 L (6.3-8.2) g/dL Albumin 3.1 L (3.5-5.0) g/dL Multi-Disciplinary Progress Notes: Multi-Disciplinary Progress Notes 12/26/24 12:39 Case Management Note by Jud Kurtz FURTHER DC PLANNING HELD AT THIS TIME- WAITING ON REPEAT PSYCH CONSULT AND STILL WAITING ON A BED AT AT THIS TIME Initialized on 12/26/24 12:39 - END OF NOTE Assessment/Plan (1) Cellulitis Current Visit: Yes Status: Acute Qualifiers: Site of cellulitis: extremity Site of cellulitis of extremity: lower extremity Laterality: right Qualified Code(s): L03.115 - Cellulitis of right lower limb Assessment & Plan: - Groin and right upper thigh/ back side of leg - Podiatry consult- reviewed note and agree with plan - Continue vanc/levaquin - BC x2 negative -Wound culture pending - CBC, CMP reviewed -continue lasix 12/26: -WBC reviewed and WNL at 7.1 -Continue levaquin -Wound cult with gram - ID - discontinue vanc -Continue lasix 4/2: -WBC reviewed at 7.3 -Wound culture with pseudomonas - resistant to Levaquin - will start merem Code(s): L03.90 - CELLULITIS, UNSPECIFIED (2) Bipolar disorder Current Visit: Yes Status: Acute Assessment & Plan: - Start Seroquel 50 BID Code(s): F31.9 - BIPOLAR DISORDER, UNSPECIFIED (3) Chronic wound Current Visit: Yes Status: Acute Assessment & Plan: - Levaquin and vancomycin- after reviewing previous culture results - Podiatry consult- reviewed note and agree with plan - BC x2 negative - Wound culture pending - PT for wound care - Refused Burger and scrotal sling to aide in wound care- urinating on self 12/26: -Wound culture with gram - ID - dc vanc 12/27: -Wound culture with pseudomonas - resistant to levaquin - will start Merem Code(s): T14.8XXA - OTHER INJURY OF UNSPECIFIED BODY REGION, INITIAL ENCOUNTER (4) Diarrhea Current Visit: Yes Status: Acute Assessment & Plan: - Imodium - Education provided on Imodium dosing and not to exceed daily dosing for safety reasons - Probiotics - C-Diff pending - patient declines to collect stool specimen 12/26: -cdiff negative Code(s): R19.7 - DIARRHEA, UNSPECIFIED (5) Generalized weakness Current Visit: Yes Status: Acute Assessment & Plan: -PT/OT Code(s): R53.1 - WEAKNESS (6) Hypocalcemia Current Visit: Yes Status: Acute Assessment & Plan: - Tums BID -resolved Code(s): E83.51 - HYPOCALCEMIA (7) Scrotal edema Current Visit: Yes Status: Acute Assessment & Plan: - Pt is incontinent of urine thus causing irritation of skin on legs - Scrotal sling- refused - Place burger to aide in perineal wounds- declined - Cont. lasix Code(s): N50.89 - OTHER SPECIFIED DISORDERS OF THE MALE GENITAL ORGANS (8) Suicidal ideation Current Visit: Yes Status: Acute Assessment & Plan: - States he will kill himself with a gun if discharged or has no assets to live in a long term- Pt stated his original plan was to be hit by a train [place] - Pt states he can no longer take care of himself - Pt refused to sign safety plan advised by mental health provider -Emergency detained and signed by php lamp developer - Phone, tele, and any items that could be used to injure self taken out of room for safety. - pt moved closer to nurses station - Accepted by [facility] for medical psych bed- awaiting bed to open - Pt is on a 72 hour ED hold that started evening- weekends do not count. - Started seroquel 50 BID 12/26: -[facility] pending for transfer- patient reports he is no longer having suicidal thoughts- consult for re-eval with [facility] - ED expires today - may need to get extension 12/27: -[facility] re-consulted- unable to obtain extension on ED- patient no longer having suicidal thoughts- declines transfer to - working on SNF placement Code(s): R45.851 - SUICIDAL IDEATIONS (9) Thrombocytosis Current Visit: Yes Status: Acute Assessment & Plan: - Likely 2:2 infection, inflammation, anemia -improving plts now at [phone] (10) Atrial fibrillation Current Visit: Yes Status: Chronic Assessment & Plan: - Continue Xarelto - Tele Code(s): I48.91 - UNSPECIFIED ATRIAL FIBRILLATION (11) Restless leg syndrome Current Visit: Yes Status: Chronic Assessment & Plan: - Continue requip (12) Unable to care for self Current Visit: No Status: Acute Assessment & Plan: - Per pt wants long term placement but not willing to sign over assets. - Case management consult - Psych eval X2 12/26: -Psych to re-eval patient- [facility] pending transfer for psych and wound care- may need ext on ED 12/27: - looking into SNF for placement Code(s): Z78.9 - OTHER SPECIFIED HEALTH STATUS (13) Yeast dermatitis Current Visit: No Status: Acute Assessment & Plan: - Refusing nystatin power - Will only allow staff to use barrier cream on affect areas thus skin not healing - Started Fluconazole 800mg PO once, then 400mg daily thereafter per pharmacy recommendation Code(s): B37.2 - CANDIDIASIS OF SKIN AND NAIL (14) Anemia Current Visit: No Status: Chronic Assessment & Plan: - Chronic - + Iron def anemia - Started ferrous sulfate daily Code(s): D64.9 - ANEMIA, UNSPECIFIED (15) HLD (hyperlipidemia) Current Visit: No Status: Chronic Assessment & Plan: - Continue statin Code(s): E78.5 - HYPERLIPIDEMIA, UNSPECIFIED (16) HTN (hypertension) Current Visit: No Status: Chronic Assessment & Plan: - BP stable - Continue home meds Code(s): I10 - ESSENTIAL (PRIMARY) HYPERTENSION (17) Major depressive disorder Current Visit: No Status: Chronic Assessment & Plan: - Continue home meds Code(s): F32.9 - MAJOR DEPRESSIVE DISORDER, SINGLE EPISODE, UNSPECIFIED (18) Morbid obesity Current Visit: No Status: Chronic Assessment & Plan: - Advised ADA diet and exercise control Code(s): E66.01 - MORBID (SEVERE) OBESITY DUE TO EXCESS CALORIES (19) Type 2 diabetes mellitus Current Visit: No Status: Chronic Assessment & Plan: - A1C 7.19- 11/02/24- uncontrolled - Continue home insulin dosing - Diabetic education provided on good glycemic control for wound healing - Accuchecks ac/hs - Consistent carb diet - Using dexcom - Hypoglycemic episodes - Changed lantus to 60 units BID from 66 units BID - Changed Breakfast and Dinner humalog to 20 units with meals - Keep lunch humalog at 14 units 4/1: -Blood sugar improved with above changes 4/2: -Adjusted lantus to 60 units daily - breakfast 17u, lunch 11units, dinner 17 units VTE: Xarelto PPI: Pepcid Next of KIN: Amor Loa[facility] [phone] D/C plan: pending placement Code(s): L03.90 - CELLULITIS, UNSPECIFIED (2) Bipolar disorder Current Visit: Yes Status: Acute Code(s): F31.9 - BIPOLAR DISORDER, UNSPECIFIED (3) Chronic wound Current Visit: Yes Status: Acute Code(s): T14.8XXA - OTHER INJURY OF UNSPECIFIED BODY REGION, INITIAL ENCOUNTER (4) Diarrhea Current Visit: Yes Status: Acute Code(s): R19.7 - DIARRHEA, UNSPECIFIED (5) Generalized weakness Current Visit: Yes Status: Acute Code(s): R53.1 - WEAKNESS (6) Hypocalcemia Current Visit: Yes Status: Acute Code(s): E83.51 - HYPOCALCEMIA (7) Scrotal edema Current Visit: Yes Status: Acute Code(s): N50.89 - OTHER SPECIFIED DISORDERS OF THE MALE GENITAL ORGANS (8) Suicidal ideation Current Visit: Yes Status: Acute Code(s): R45.851 - SUICIDAL IDEATIONS (9) Thrombocytosis Current Visit: Yes Status: Acute (10) Atrial fibrillation Current Visit: Yes Status: Chronic Code(s): I48.91 - UNSPECIFIED ATRIAL FIBRILLATION (11) Restless leg syndrome Current Visit: Yes Status: Chronic (12) Unable to care for self Current Visit: No Status: Acute Code(s): Z78.9 - OTHER SPECIFIED HEALTH STATUS (13) Yeast dermatitis Current Visit: No Status: Acute Code(s): B37.2 - CANDIDIASIS OF SKIN AND NAIL (14) Anemia Current Visit: No Status: Chronic Code(s): D64.9 - ANEMIA, UNSPECIFIED (15) HLD (hyperlipidemia) Current Visit: No Status: Chronic Code(s): E78.5 - HYPERLIPIDEMIA, UNSPECIFIED (16) HTN (hypertension) Current Visit: No Status: Chronic Code(s): I10 - ESSENTIAL (PRIMARY) HYPERTENSION (17) Major depressive disorder Current Visit: No Status: Chronic Code(s): F32.9 - MAJOR DEPRESSIVE DISORDER, SINGLE EPISODE, UNSPECIFIED (18) Morbid obesity Current Visit: No Status: Chronic Code(s): E66.01 - MORBID (SEVERE) OBESITY DUE TO EXCESS CALORIES (19) Type 2 diabetes mellitus Current Visit: No Status: Chronic
[2024-12-27 05:27] LABS: ALBUMIN 3.1 g/dL (3.5-5.0); ANION GAP 11.6 MEQ/L (5-15); BILIRUBIN,TOTAL 0.2 mg/dL (0.2-1.3); Calcium 8.5 mg/dL (8.4-10.2); Creatinine 1 0.8 mg/dL (0.66-1.25); EST GLOMERULAR FILTRATION RATE 101.3 ML/MIN; Potassium 4.1 mmol/L (3.5-5.1)
[2024-12-27] MEDS: PHARMACY DOSING REQUEST MC ONE (08:15)
[2024-12-27] MEDS: Merrem 1 GM in Sodium Chloride 100ML MINI-BAG PLUS 100 ML IV SCH (08:17)
[2024-12-27] MEDS: Lantus Insulin SQ SCH (10:08)
[2024-12-27] MEDS: HUMALOG SQ SCH ×2 (11:51→16:52)
[2024-12-27] MEDS: NORCO 5/325 MG PO PRN (17:00)
--- NOTE | 2024-12-28 05:34 | PCM.NOTE ---
Date and Time: 12/28/24 0533 Subjective Assessment: HPI: Mr. Taylor is a 59-year-old male with a history of PTSD, diabetes, AFib, peripheral neuropathy, and osteoarthritis. He was admitted for worsening right thigh and groin cellulitis, with past infections of Staph aureus, MRSA, and pseudomonas. The patient has had multiple hospitalizations for wound care. He is anxious, irritable, and refuses necessary care, including wound care and medications like nystatin powder for a yeast infection. His mental health is a major concern as he has expressed suicidal thoughts, including plans to use a gun or step in front of a train. Despite multiple psychiatric evaluations, he refuses to sign a safety plan. A medical psychiatric unit placement is being arranged. His blood sugar levels have been fluctuating, with hypoglycemic episodes at night, requiring adjustments to his insulin regimen. He continues to struggle with his wound healing and is non-compliant with recommended treatments. He is awaiting placement at a psychiatric facility for further care. 12/25/24: Met and evaluated patient at the bedside and endorsing minimal pain, rating it 1/10 on the numerical pain scale. When asked about any suicidal or homicidal ideation, the patient initially dismissed previous statements as a joke, asserting he never intended to harm himself. However, when specifically questioned about a prior remark regarding jumping in front of a train, the patient acknowledged making the statement. When asked if he still had such thoughts, the patient merely shrugged and declined to provide further elaboration. Given these concerns, the patient is currently being emergently detained and is awaiting transfer to an inpatient unit for comprehensive psychiatric evaluation and continued wound care. 12/26/24: Met with the patient at the bedside, who reports that pain is well-controlled. After reviewing the wound images with the wound care team and consulting podiatry, no further surgical intervention is required at this time. Wound cultures are growing a gram-negative organism; vancomycin has been discontinued, and Levaquin is being continued. The patient denies current suicidal thoughts, having previously been in the emergently detained for suicidal ideation. He is being transferred to [facility] for inpatient psychiatric care and wound management and awaiting bed. With [facility], a consultation with [facility] will be requested for re-evaluation and possible extension of his ED. 12/27/24: No overnight events noted. Discussed wound culture showing pseudomonas - abx changed to Merem. Patient endorses much improvement in diarrheal episodes and pain. [facility] consulted 12/26/24 for re-evaluation and deemed patient psychologically stable for discharge as he reports he does not have suicidal/homicidal ideations. Patient requesting placement at nursing facility for wound care and antibiotics as he is not able to care for himself at home. He declines transfer to for psychiatric treatment. Denies fever,cough, sob, cp, abdominal pain, MCGUIRE, dizziness, N/V/D. Will have PICC placed for antibiotics. Patient is psychologically stable for rehab stay. 12/28/24: Met with patient bedside. No complaints this morning. PICC placed for continuation of Merrem. He will require 14 days total. Patient awaiting transfer to SNF pending level II evaluation. Denies fever,cough, sob, cp, abdominal pain, MCGUIRE, dizziness, N/V/D. - Review of Systems Constitutional: No Symptoms Eyes: No Symptoms Ears, Nose, & Throat: No Symptoms Respiratory: No Symptoms Cardiac: No Symptoms Abdominal/Gastrointestinal: No Symptoms Genitourinary Symptoms: No Symptoms Skin: Cellulitis, Induration, Skin Lesions Neurological: No Symptoms Psychological: No Symptoms Endocrine: No Symptoms Hematologic/Lymphatic: No Symptoms Immunological/Allergic: No Symptoms Objective Exam General Appearance: no apparent distress Neurologic Exam: alert, oriented x 3, cooperative Skin Exam: other (see wound assessment) Wound Assessment: Skin/Wound Assessment Wound/Incision Assessment Start: 12/19/24 15:25 Text: Status: Active Freq: Q6H Protocol: Document 12/28/24 02:00 LB (Rec: 12/28/24 02:26 LB [id number]) Wound/Incision Assessment Right groin/scrotum Wound Assessment Shift Assessment Wound Type excoriation Wound Stage Non Pressure Wound Dressing Status Dry & Intact General Appearance Open to air Right Thigh Wound Assessment Shift Assessment Wound Type ulceration Wound Stage Non Pressure Wound Dressing Status Dry & Intact,Changed Primary Dressing abd pads Secondary Dressing Gauze Roll/Wrap Comment CDI Wound Photo Photo Taken No Eye Exam: PERRL Ears, Nose, Throat Exam: normal ENT inspection Neck Exam: normal inspection Respiratory Exam: normal breath sounds, lungs clear Cardiovascular Exam: regular rate/rhythm, normal heart sounds Gastrointestinal/Abdomen Exam: soft, normal bowel sounds Extremity Exam: swelling (BLE +2 pitting - wrapped) Male Genitalia Exam: deferred Rectal Exam: deferred Objective Data Vital Signs: Vital Signs - 24 hr Temp Pulse Resp BP Pulse Ox 12/28/24 04:00 97.7 F 67 20 135/86 98 12/27/24 23:43 97.3 F 56 L 18 137/60 97 12/27/24 20:00 97.8 F 59 L 18 141/71 98 12/27/24 16:00 98.0 F 59 L 16 127/46 97 12/27/24 11:43 98.1 F 60 16 155/70 98 12/27/24 07:13 98.1 F 63 16 142/93 94 L Pain Assessment - Last Documented Pain Intensity 0 Pain Scale Used 0-10 Pain Scale Intake and Output: Intake & Output 12/25/24 12/26/24 12/27/24 12/28/24 11:59 11:59 11:59 11:59 Intake Total 1300 1844 1710 1860 Balance 1300 1844 1710 1860 Lab Results: Lab Results-Last 24 Hours 12/27/24 Range/Units 04:55 Sodium 143 (135-145) mmol/L Potassium 4.1 (3.5-5.1) mmol/L Chloride 101 (98-107) mmol/L Carbon Dioxide 34 H (22-30) mmol/L Anion Gap 11.6 (5-15) MEQ/L BUN 23 H (9-20) mg/dL Creatinine 0.80 (0.66-1.25) mg/dL Estimated GFR 101.3 ML/MIN Glucose 116 H (74-106) mg/dL Calcium 8.5 (8.4-10.2) mg/dL Total Bilirubin 0.20 (0.2-1.3) mg/dL AST 26 (17-59) U/L ALT 20 (0-50) U/L Alkaline Phosphatase 123 (38-126) U/L Serum Total Protein 6.0 L (6.3-8.2) g/dL Albumin 3.1 L (3.5-5.0) g/dL Multi-Disciplinary Progress Notes: Multi-Disciplinary Progress Notes 12/27/24 12:27 Case Management Note by Jud Kurtz NOW REQUIRING LEVEL II- THIS WILL NEED COMPLETED PRIOR TO PLACEMENT MAJESTIC CARE IN DECLINED PATIENT Initialized on 12/27/24 12:27 - END OF NOTE 12/27/24 09:52 Case Management Note by Jud Kurtz STARTED AT THIS TIME- PENDING REVIEW S/W PATIENT ABOUT REHAB PLACEMENT- HE IS AGREEABLE AND NO PREFERENCE IN FACILITY BUT DOES NOTE HE STRUGGLES WITH TRANSPORTATION. REFERRALS SENT TO [facility] Initialized on 12/27/24 09:52 - END OF NOTE 12/27/24 07:12 Pharmacy Note by Juan Liang Today is day 9 of Levaquin IV. Please review if this is still needed or could be changed to oral. Initialized on 12/27/24 07:12 - END OF NOTE Assessment/Plan (1) Cellulitis Current Visit: Yes Status: Acute Qualifiers: Site of cellulitis: extremity Site of cellulitis of extremity: lower extremity Laterality: right Qualified Code(s): L03.115 - Cellulitis of right lower limb Assessment & Plan: Groin and right upper thigh/ back side of leg - Podiatry consult- reviewed note and agree with plan - Continue vanc/levaquin - BC x2 negative -Wound culture pending - CBC, CMP reviewed -continue lasix 12/26: -WBC reviewed and WNL at 7.1 -Continue levaquin -Wound cult with gram - ID - discontinue vanc -Continue lasix 4/2: -WBC reviewed at 7.3 -Wound culture with pseudomonas - resistant to Levaquin - will start merem 43: -PICC placed for 14 days of Merem for pseudomonas on wound culture -Podiatry following -WBC reviewed at 6.1 -SNF placement pending for continued wound care Code(s): L03.90 - CELLULITIS, UNSPECIFIED (2) Bipolar disorder Current Visit: Yes Status: Acute Assessment & Plan: - Start Seroquel 50 BID Code(s): F31.9 - BIPOLAR DISORDER, UNSPECIFIED (3) Chronic wound Current Visit: Yes Status: Acute Assessment & Plan: - Levaquin and vancomycin- after reviewing previous culture results - Podiatry consult- reviewed note and agree with plan - BC x2 negative - Wound culture pending - PT for wound care - Refused Burger and scrotal sling to aide in wound care- urinating on self 12/26: -Wound culture with gram - ID - dc vanc 12/27: -Wound culture with pseudomonas - resistant to levaquin - will start Merem Code(s): T14.8XXA - OTHER INJURY OF UNSPECIFIED BODY REGION, INITIAL ENCOUNTER (4) Diarrhea Current Visit: Yes Status: Acute Assessment & Plan: - Imodium - Education provided on Imodium dosing and not to exceed daily dosing for safety reasons - Probiotics - C-Diff pending - patient declines to collect stool specimen 12/26: -cdiff negative 12/28: -Reports diarrheal episodes less frequent Code(s): R19.7 - DIARRHEA, UNSPECIFIED (5) Generalized weakness Current Visit: Yes Status: Acute Assessment & Plan: -PT/OT Code(s): R53.1 - WEAKNESS (6) Hypocalcemia Current Visit: Yes Status: Acute Assessment & Plan: - Tums BID -resolved Code(s): E83.51 - HYPOCALCEMIA (7) Scrotal edema Current Visit: Yes Status: Acute Assessment & Plan: - Pt is incontinent of urine thus causing irritation of skin on legs - Scrotal sling- refused - Place burger to aide in perineal wounds- declined - Cont. lasix Code(s): N50.89 - OTHER SPECIFIED DISORDERS OF THE MALE GENITAL ORGANS (8) Suicidal ideation Current Visit: Yes Status: Acute Assessment & Plan: - States he will kill himself with a gun if discharged or has no assets to live in a senior care- Pt stated his original plan was to be hit by a train [place] - Pt states he can no longer take care of himself - Pt refused to sign safety plan advised by mental health provider -Emergency detained and signed by imaging analyst - Phone, tele, and any items that could be used to injure self taken out of room for safety. - pt moved closer to nurses station - Accepted by [facility] for medical psych bed- awaiting bed to open - Pt is on a 72 hour ED hold that started evening- weekends do not count. - Started seroquel 50 BID 12/26: -[facility] pending for transfer- patient reports he is no longer having suicidal thoughts- consult for re-eval with [facility] - ED expires today - may need to get extension 12/27: -[facility] re-consulted- unable to obtain extension on ED- patient no longer having suicidal thoughts- declines transfer to [facility]- CM working on SNF placement 12/28: -Denies suicidal/homicidal ideation Code(s): R45.851 - SUICIDAL IDEATIONS (9) Thrombocytosis Current Visit: Yes Status: Acute Assessment & Plan: - Likely 2:2 infection, inflammation, anemia -trend plts now at [id number] (10) Atrial fibrillation Current Visit: Yes Status: Chronic Assessment & Plan: - Continue Xarelto - Tele Code(s): I48.91 - UNSPECIFIED ATRIAL FIBRILLATION (11) Restless leg syndrome Current Visit: Yes Status: Chronic Assessment & Plan: - Continue requip (12) Unable to care for self Current Visit: No Status: Acute Assessment & Plan: - Per pt wants senior care placement but not willing to sign over assets. - Case management consult - Psych eval X2 12/26: -Psych to re-eval patient- [facility] pending transfer for psych and wound care- may need ext on ED 12/27: -CM looking into SNF for placement 12/28: -SNF pending level II evaluation Code(s): Z78.9 - OTHER SPECIFIED HEALTH STATUS (13) Yeast dermatitis Current Visit: No Status: Acute Assessment & Plan: - Refusing nystatin power - Will only allow staff to use barrier cream on affect areas thus skin not healing - Started Fluconazole 800mg PO once, then 400mg daily thereafter per pharmacy recommendation Code(s): B37.2 - CANDIDIASIS OF SKIN AND NAIL (14) Anemia Current Visit: No Status: Chronic Assessment & Plan: - Chronic - + Iron def anemia - Started ferrous sulfate daily Code(s): D64.9 - ANEMIA, UNSPECIFIED (15) HLD (hyperlipidemia) Current Visit: No Status: Chronic Assessment & Plan: - Continue statin Code(s): E78.5 - HYPERLIPIDEMIA, UNSPECIFIED (16) HTN (hypertension) Current Visit: No Status: Chronic Assessment & Plan: - BP stable - Continue home meds Code(s): I10 - ESSENTIAL (PRIMARY) HYPERTENSION (17) Major depressive disorder Current Visit: No Status: Chronic Assessment & Plan: - Continue home meds Code(s): F32.9 - MAJOR DEPRESSIVE DISORDER, SINGLE EPISODE, UNSPECIFIED (18) Morbid obesity Current Visit: No Status: Chronic Assessment & Plan: - Advised ADA diet and exercise control Code(s): E66.01 - MORBID (SEVERE) OBESITY DUE TO EXCESS CALORIES (19) Type 2 diabetes mellitus Current Visit: No Status: Chronic Assessment & Plan: - A1C 7.19- 11/02/24- uncontrolled - Continue home insulin dosing - Diabetic education provided on good glycemic control for wound healing - Accuchecks ac/hs - Consistent carb diet - Using dexcom - Hypoglycemic episodes - Changed lantus to 60 units BID from 66 units BID - Changed Breakfast and Dinner humalog to 20 units with meals - Keep lunch humalog at 14 units 12/26: -Blood sugar improved with above changes 12/27: -Adjusted lantus to 60 units daily - breakfast 17u, lunch 11units, dinner 17 units 12/28: -Blood glucose levels reviewed and improved VTE: Razia PPI: Pepcid Next of KIN: Amor Loaiza [phone] D/C plan: pending placement Code(s): L03.90 - CELLULITIS, UNSPECIFIED (2) Bipolar disorder Current Visit: Yes Status: Acute Code(s): F31.9 - BIPOLAR DISORDER, UNSPECIFIED (3) Chronic wound Current Visit: Yes Status: Acute Code(s): T14.8XXA - OTHER INJURY OF UNSPECIFIED BODY REGION, INITIAL ENCOUNTER (4) Diarrhea Current Visit: Yes Status: Acute Code(s): R19.7 - DIARRHEA, UNSPECIFIED (5) Generalized weakness Current Visit: Yes Status: Acute Code(s): R53.1 - WEAKNESS (6) Hypocalcemia Current Visit: Yes Status: Acute Code(s): E83.51 - HYPOCALCEMIA (7) Scrotal edema Current Visit: Yes Status: Acute Code(s): N50.89 - OTHER SPECIFIED DISORDERS OF THE MALE GENITAL ORGANS (8) Suicidal ideation Current Visit: Yes Status: Acute Code(s): R45.851 - SUICIDAL IDEATIONS (9) Thrombocytosis Current Visit: Yes Status: Acute (10) Atrial fibrillation Current Visit: Yes Status: Chronic Code(s): I48.91 - UNSPECIFIED ATRIAL FIBRILLATION (11) Restless leg syndrome Current Visit: Yes Status: Chronic (12) Unable to care for self Current Visit: No Status: Acute Code(s): Z78.9 - OTHER SPECIFIED HEALTH STATUS (13) Yeast dermatitis Current Visit: No Status: Acute Code(s): B37.2 - CANDIDIASIS OF SKIN AND NAIL (14) Anemia Current Visit: No Status: Chronic Code(s): D64.9 - ANEMIA, UNSPECIFIED (15) HLD (hyperlipidemia) Current Visit: No Status: Chronic Code(s): E78.5 - HYPERLIPIDEMIA, UNSPECIFIED (16) HTN (hypertension) Current Visit: No Status: Chronic Code(s): I10 - ESSENTIAL (PRIMARY) HYPERTENSION (17) Major depressive disorder Current Visit: No Status: Chronic Code(s): F32.9 - MAJOR DEPRESSIVE DISORDER, SINGLE EPISODE, UNSPECIFIED (18) Morbid obesity Current Visit: No Status: Chronic Code(s): E66.01 - MORBID (SEVERE) OBESITY DUE TO EXCESS CALORIES (19) Type 2 diabetes mellitus Current Visit: No Status: Chronic
[2024-12-28 05:49] LABS: Absolute Neutrophil Ct (ANC) 3.52 x10^3/uL (1.78-5.38); BASOPHIL % 0.8 % (0.2-1.2); Basophil (Absolute #) 0.05 x10^3/uL (0.01-0.08); Eosinophil % 8.3 % (0.8-7.0); Hematocrit 27.7 % (40.1-51.0); Hemoglobin 7.9 g/dL (13.7-17.5); IMMATURE GRAN # 0.02 x10^3u/L (0.001-0.031); IMMATURE GRAN % 0.3 % (0.001-0.429); Lymphocyte (Absolute #) 1.47 x10^3/uL (1.32-3.57); Lymphocytes % 24.3 % (21.8-53.1); Mean Cell Volume 65.6 fL (79.0-92.2); Mean Corpuscular Hemoglobin 18.7 pg (25.7-32.2); Mean Corpuscular Hgb Concent. 28.5 g/dL (32.3-36.5); Mean Platelet Volume 9.4 fL (9.4-12.4); Monocytes % 8.3 % (5.3-12.2); Platelet Count 391 x10^3/uL (163-337); Red Blood Count 4.22 x10^6/uL (4.63-6.08); Red Cell Distribution Width 20.4 % (11.6-14.4); White Blood Count 6.1 x10^3/uL (4.23-9.07)
[2024-12-28 06:02] LABS: ALBUMIN 3.3 g/dL (3.5-5.0); ANION GAP 11.4 MEQ/L (5-15); BILIRUBIN,TOTAL 0.3 mg/dL (0.2-1.3); Calcium 8.7 mg/dL (8.4-10.2); Creatinine 1 0.83 mg/dL (0.66-1.25); EST GLOMERULAR FILTRATION RATE 100.2 ML/MIN; Total Protein 6.3 g/dL (6.3-8.2)
[2024-12-28 07:23] LABS: Slide Review 1 YES
[2024-12-28] MEDS: HUMALOG SQ SCH (08:41)
--- NOTE | 2024-12-28 12:47 | XRAY ---
Indication: PICC line placement. Comparison: November 02, 2024 Portable chest demonstrates new left arm PICC line with tip projecting over SVC. Remaining heart and lungs unchanged again with marked cardiomegaly. No new cardiopulmonary abnormalities.
[2024-12-29 05:01] LABS: Absolute Neutrophil Ct (ANC) 3.41 x10^3/uL (1.78-5.38); BASOPHIL % 0.7 % (0.2-1.2); Basophil (Absolute #) 0.04 x10^3/uL (0.01-0.08); Eosinophil % 7.7 % (0.8-7.0); Eosinophil (Absolute #) 0.46 x10^3/uL (0.04-0.54); Hematocrit 26.7 % (40.1-51.0); Hemoglobin 7.6 g/dL (13.7-17.5); IMMATURE GRAN # 0.03 x10^3u/L (0.001-0.031); IMMATURE GRAN % 0.5 % (0.001-0.429); Lymphocyte (Absolute #) 1.47 x10^3/uL (1.32-3.57); Lymphocytes % 24.6 % (21.8-53.1); Mean Cell Volume 66.1 fL (79.0-92.2); Mean Corpuscular Hemoglobin 18.8 pg (25.7-32.2); Mean Corpuscular Hgb Concent. 28.5 g/dL (32.3-36.5); Mean Platelet Volume 9.5 fL (9.4-12.4); Monocyte (Absolute #) 0.57 x10^3/uL (0.30-0.82); Monocytes % 9.5 % (5.3-12.2); Platelet Count 353 x10^3/uL (163-337); Red Blood Count 4.04 x10^6/uL (4.63-6.08); Red Cell Distribution Width 20.4 % (11.6-14.4)
--- NOTE | 2024-12-29 05:10 | PCM.NOTE ---
Date and Time: 12/29/24 0509 Subjective Assessment: HPI: Mr. Taylor is a 59-year-old male with a history of PTSD, diabetes, AFib, peripheral neuropathy, and osteoarthritis. He was admitted for worsening right thigh and groin cellulitis, with past infections of Staph aureus, MRSA, and pseudomonas. The patient has had multiple hospitalizations for wound care. He is anxious, irritable, and refuses necessary care, including wound care and medications like nystatin powder for a yeast infection. His mental health is a major concern as he has expressed suicidal thoughts, including plans to use a gun or step in front of a train. Despite multiple psychiatric evaluations, he refuses to sign a safety plan. A medical psychiatric unit placement is being arranged. His blood sugar levels have been fluctuating, with hypoglycemic episodes at night, requiring adjustments to his insulin regimen. He continues to struggle with his wound healing and is non-compliant with recommended treatments. He is awaiting placement at a psychiatric facility for further care. 12/25/24: Met and evaluated patient at the bedside and endorsing minimal pain, rating it 1/10 on the numerical pain scale. When asked about any suicidal or homicidal ideation, the patient initially dismissed previous statements as a joke, asserting he never intended to harm himself. However, when specifically questioned about a prior remark regarding jumping in front of a train, the patient acknowledged making the statement. When asked if he still had such thoughts, the patient merely shrugged and declined to provide further elaboration. Given these concerns, the patient is currently being emergently detained and is awaiting transfer to an inpatient unit for comprehensive psychiatric evaluation and continued wound care. 12/26/24: Met with the patient at the bedside, who reports that pain is well-controlled. After reviewing the wound images with the wound care team and consulting podiatry, no further surgical intervention is required at this time. Wound cultures are growing a gram-negative organism; vancomycin has been discontinued, and Levaquin is being continued. The patient denies current suicidal thoughts, having previously been in the emergently detained for suicidal ideation. He is being transferred to [facility] for inpatient psychiatric care and wound management and awaiting bed. With [facility], a consultation with [facility] will be requested for re-evaluation and possible extension of his ED. 12/27/24: No overnight events noted. Discussed wound culture showing pseudomonas - abx changed to Merem. Patient endorses much improvement in diarrheal episodes and pain. [facility] consulted 12/26/24 for re-evaluation and deemed patient psychologically stable for discharge as he reports he does not have suicidal/homicidal ideations. Patient requesting placement at nursing facility for wound care and antibiotics as he is not able to care for himself at home. He declines transfer to for psychiatric treatment. Denies fever,cough, sob, cp, abdominal pain, MCGUIRE, dizziness, N/V/D. Will have PICC placed for antibiotics. Patient is psychologically stable for rehab stay. 12/28/24: Met with patient bedside. No complaints this morning. PICC placed for continuation of Merrem. He will require 14 days total. Patient awaiting transfer to SNF pending level II evaluation. Denies fever,cough, sob, cp, abdominal pain, MCGUIRE, dizziness, N/V/D. Objective Exam Wound Assessment: Skin/Wound Assessment Wound/Incision Assessment Start: 12/19/24 15:25 Text: Status: Active Freq: Q6H Protocol: Document 12/29/24 02:00 LB (Rec: 12/29/24 03:37 LB [id number]) Wound/Incision Assessment Right groin/scrotum Wound Assessment Shift Assessment Wound Type excoriation Wound Stage Non Pressure Wound General Appearance Open to air,Draining Right Thigh Wound Assessment Shift Assessment Wound Type ulceration Wound Stage Non Pressure Wound Primary Dressing abd pads Secondary Dressing Gauze Roll/Wrap Comment dressing CDI Wound Photo Photo Taken No Objective Data Vital Signs: Vital Signs - 24 hr Temp Pulse Resp BP Pulse Ox 12/29/24 04:00 18 12/28/24 23:51 97.0 F 59 L 16 146/73 95 12/28/24 19:57 98.2 F 57 L 20 131/62 97 12/28/24 16:00 98.3 F 58 L 17 140/68 97 12/28/24 12:00 98.5 F 59 L 17 120/62 95 12/28/24 07:11 98.4 F 62 18 135/72 95 Pain Assessment - Last Documented Pain Intensity 0 Pain Scale Used 0-10 Pain Scale Intake and Output: Intake & Output 12/26/24 12/27/24 12/28/24 12/29/24 11:59 11:59 11:59 11:59 Intake Total 1844 1710 2100 940 Balance 1844 1710 2100 940 Lab Results: Lab Results-Last 24 Hours 12/28/24 12/28/24 12/29/24 Range/Units 05:20 05:20 04:56 WBC 6.1 6.0 (4.23-9.07) x10^3/uL RBC 4.22 L 4.04 L (4.63-6.08) x10^6/uL Hgb 7.9 L 7.6 L (13.7-17.5) g/dL Hct 27.7 L 26.7 L (40.1-51.0) % MCV 65.6 L 66.1 L (79.0-92.2) fL MCH 18.7 L 18.8 L (25.7-32.2) pg MCHC 28.5 L 28.5 L (32.3-36.5) g/dL RDW 20.4 H 20.4 H (11.6-14.4) % Plt Count 391 H 353 H (163-337) x10^3/uL MPV 9.4 9.5 (9.4-12.4) fL Gran % 58.0 57.0 (34.0-67.9) % Immature Gran % (Auto) 0.3 0.5 H (0.001-0.429) % Nucleat RBC Rel Count 0.0 0.0 (0.00-0.2) % Eos # (Auto) 0.50 0.46 (0.04-0.54) x10^3/uL Immature Gran # (Auto) 0.02 0.03 (0.001-0.031) x10^3u/L Absolute Lymphs (auto) 1.47 1.47 (1.32-3.57) x10^3/uL Absolute Monos (auto) 0.50 0.57 (0.30-0.82) x10^3/uL Absolute Nucleated RBC 0.00 0.00 (0.00-0.012) x10^3u/L Lymphocytes % 24.3 24.6 (21.8-53.1) % Monocytes % 8.3 9.5 (5.3-12.2) % Eosinophils % 8.3 H 7.7 H (0.8-7.0) % Basophils % 0.8 0.7 (0.2-1.2) % Absolute Granulocytes 3.52 3.41 (1.78-5.38) x10^3/uL Basophils # 0.05 0.04 (0.01-0.08) x10^3/uL Sodium 142 (135-145) mmol/L Potassium 4.0 (3.5-5.1) mmol/L Chloride 100 (98-107) mmol/L Carbon Dioxide 35 H (22-30) mmol/L Anion Gap 11.4 (5-15) MEQ/L BUN 22 H (9-20) mg/dL Creatinine 0.83 (0.66-1.25) mg/dL Estimated GFR 100.2 ML/MIN Glucose 93 (74-106) mg/dL Calcium 8.7 (8.4-10.2) mg/dL Total Bilirubin 0.30 (0.2-1.3) mg/dL AST 27 (17-59) U/L ALT 22 (0-50) U/L Alkaline Phosphatase 134 H (38-126) U/L Serum Total Protein 6.3 (6.3-8.2) g/dL Albumin 3.3 L (3.5-5.0) g/dL Slides for Path Review YES Radiology Exams: Radiology Procedures Category Date Time Status CHEST 1 VIEW (PORTABLE) Stat Exams 12/28/24 12:17 Completed Multi-Disciplinary Progress Notes: Multi-Disciplinary Progress Notes 12/28/24 18:13 Case Management Note by Jud Kurtz Addendum entered by Jud Kurtz 12/28/24 18:16: PICC LINE INFORMATION FAXED WITH CLINICAL UPDATE Original Note: JERALD FROM [facility] CAME TO ASSESS PATIENT FOR THEIR FACILITY-THEY WERE FAXED UPDATED CLINICAL TODAY AND HAVE ACCEPTED PATIENT. THEY REPORTED PATIENT WOULD NEED TO BE AGREEABLE TO [facility] WHILE AT FACILITY- PATIENT INITIALLY SAID NO BUT THEN DID BECOME AGREEABLE IN ORDER TO GO TO FACILITY. THEY WILL STILL AUTH PROCESS TODAY- AWARE PATIENT IS WAITING LEVEL II EVAL Initialized on 12/28/24 18:13 - END OF NOTE 12/28/24 11:00 (created 12/28/24 18:12) Case Management Note by Jud Kurtz WITH [facility] CALLED- SHE WILL BE AT FACILITY TO DO LEVEL II EVAL LATER THIS EVENING APPROX 17:45 Initialized on 12/28/24 18:12 - END OF NOTE Assessment/Plan (1) Cellulitis Current Visit: Yes Status: Acute Qualifiers: Site of cellulitis: extremity Site of cellulitis of extremity: lower extremity Laterality: right Qualified Code(s): L03.115 - Cellulitis of right lower limb Assessment & Plan: Groin and right upper thigh/ back side of leg - Podiatry consult- reviewed note and agree with plan - Continue vanc/levaquin - BC x2 negative -Wound culture pending - CBC, CMP reviewed -continue lasix 12/26: -WBC reviewed and WNL at 7.1 -Continue levaquin -Wound cult with gram - ID - discontinue vanc -Continue lasix 2: -WBC reviewed at 7.3 -Wound culture with pseudomonas - resistant to Levaquin - will start merem 12/28: -PICC placed for 14 days of Merem for pseudomonas on wound culture -Podiatry following -WBC reviewed at 6.1 -SNF placement pending for continued wound care Code(s): L03.90 - CELLULITIS, UNSPECIFIED (2) Bipolar disorder Current Visit: Yes Status: Acute Assessment & Plan: - Start Seroquel 50 BID Code(s): F31.9 - BIPOLAR DISORDER, UNSPECIFIED (3) Chronic wound Current Visit: Yes Status: Acute Assessment & Plan: - Levaquin and vancomycin- after reviewing previous culture results - Podiatry consult- reviewed note and agree with plan - BC x2 negative - Wound culture pending - PT for wound care - Refused Burger and scrotal sling to aide in wound care- urinating on self 12/26: -Wound culture with gram - ID - dc vanc 12/27: -Wound culture with pseudomonas - resistant to levaquin - will start Merem Code(s): T14.8XXA - OTHER INJURY OF UNSPECIFIED BODY REGION, INITIAL ENCOUNTER (4) Diarrhea Current Visit: Yes Status: Acute Assessment & Plan: - Imodium - Education provided on Imodium dosing and not to exceed daily dosing for safety reasons - Probiotics - C-Diff pending - patient declines to collect stool specimen 12/26: -cdiff negative 12/28: -Reports diarrheal episodes less frequent Code(s): R19.7 - DIARRHEA, UNSPECIFIED (5) Generalized weakness Current Visit: Yes Status: Acute Assessment & Plan: -PT/OT Code(s): R53.1 - WEAKNESS (6) Hypocalcemia Current Visit: Yes Status: Acute Assessment & Plan: - Tums BID -resolved Code(s): E83.51 - HYPOCALCEMIA (7) Scrotal edema Current Visit: Yes Status: Acute Assessment & Plan: - Pt is incontinent of urine thus causing irritation of skin on legs - Scrotal sling- refused - Place burger to aide in perineal wounds- declined - Cont. lasix Code(s): N50.89 - OTHER SPECIFIED DISORDERS OF THE MALE GENITAL ORGANS (8) Suicidal ideation Current Visit: Yes Status: Acute Assessment & Plan: - States he will kill himself with a gun if discharged or has no assets to live in a fdc- Pt stated his original plan was to be hit by a train [place] - Pt states he can no longer take care of himself - Pt refused to sign safety plan advised by mental health provider -Emergency detained and signed by grinder brake lining - Phone, tele, and any items that could be used to injure self taken out of room for safety. - pt moved closer to nurses station - Accepted by [facility] for medical psych bed- awaiting bed to open - Pt is on a 72 hour ED hold that started evening- weekends do not count. - Started seroquel 50 BID 12/26: -[facility] pending for transfer- patient reports he is no longer having suicidal thoughts- consult for re-eval with [facility] - ED expires today - may need to get extension 12/27: -[facility] re-consulted- unable to obtain extension on ED- patient no longer having suicidal thoughts- declines transfer to [facility] working on SNF placement 12/28: -Denies suicidal/homicidal ideation Code(s): R45.851 - SUICIDAL IDEATIONS (9) Thrombocytosis Current Visit: Yes Status: Acute Assessment & Plan: - Likely 2:2 infection, inflammation, anemia -trend plts now at 391>[id number]<[id number] (10) Atrial fibrillation Current Visit: Yes Status: Chronic Assessment & Plan: - Continue Xarelto - Tele Code(s): I48.91 - UNSPECIFIED ATRIAL FIBRILLATION (11) Restless leg syndrome Current Visit: Yes Status: Chronic Assessment & Plan: - Continue requip (12) Unable to care for self Current Visit: No Status: Acute Assessment & Plan: - Per pt wants fdc placement but not willing to sign over assets. - Case management consult - Psych eval X2 12/26: -Psych to re-eval patient- [facility] pending transfer for psych and wound care- may need ext on ED 12/27: -CM looking into SNF for placement 12/28: -SNF pending level II evaluation Code(s): Z78.9 - OTHER SPECIFIED HEALTH STATUS (13) Yeast dermatitis Current Visit: No Status: Acute Assessment & Plan: - Refusing nystatin power - Will only allow staff to use barrier cream on affect areas thus skin not healing - Started Fluconazole 800mg PO once, then 400mg daily thereafter per pharmacy recommendation Code(s): B37.2 - CANDIDIASIS OF SKIN AND NAIL (14) Anemia Current Visit: No Status: Chronic Assessment & Plan: - Chronic - + Iron def anemia - Started ferrous sulfate daily Code(s): D64.9 - ANEMIA, UNSPECIFIED (15) HLD (hyperlipidemia) Current Visit: No Status: Chronic Assessment & Plan: - Continue statin Code(s): E78.5 - HYPERLIPIDEMIA, UNSPECIFIED (16) HTN (hypertension) Current Visit: No Status: Chronic Assessment & Plan: - BP stable - Continue home meds Code(s): I10 - ESSENTIAL (PRIMARY) HYPERTENSION (17) Major depressive disorder Current Visit: No Status: Chronic Assessment & Plan: - Continue home meds Code(s): F32.9 - MAJOR DEPRESSIVE DISORDER, SINGLE EPISODE, UNSPECIFIED (18) Morbid obesity Current Visit: No Status: Chronic Assessment & Plan: - Advised ADA diet and exercise control Code(s): E66.01 - MORBID (SEVERE) OBESITY DUE TO EXCESS CALORIES (19) Type 2 diabetes mellitus Current Visit: No Status: Chronic Assessment & Plan: - A1C 7.19- 11/02/24- uncontrolled - Continue home insulin dosing - Diabetic education provided on good glycemic control for wound healing - Accuchecks ac/hs - Consistent carb diet - Using dexcom - Hypoglycemic episodes - Changed lantus to 60 units BID from 66 units BID - Changed Breakfast and Dinner humalog to 20 units with meals - Keep lunch humalog at 14 units 12/26: -Blood sugar improved with above changes 4/2: -Adjusted lantus to 60 units daily - breakfast 17u, lunch 11units, dinner 17 units /3: -Blood glucose levels reviewed and improved VTE: Xarelto PPI: Pepcid Next of KIN: Amor Loa[facility] [phone] D/C plan: pending placement Code(s): L03.90 - CELLULITIS, UNSPECIFIED (2) Bipolar disorder Current Visit: Yes Status: Acute Code(s): F31.9 - BIPOLAR DISORDER, UNSPECIFIED (3) Chronic wound Current Visit: Yes Status: Acute Code(s): T14.8XXA - OTHER INJURY OF UNSPECIFIED BODY REGION, INITIAL ENCOUNTER (4) Diarrhea Current Visit: Yes Status: Acute Code(s): R19.7 - DIARRHEA, UNSPECIFIED (5) Generalized weakness Current Visit: Yes Status: Acute Code(s): R53.1 - WEAKNESS (6) Hypocalcemia Current Visit: Yes Status: Acute Code(s): E83.51 - HYPOCALCEMIA (7) Scrotal edema Current Visit: Yes Status: Acute Code(s): N50.89 - OTHER SPECIFIED DISORDERS OF THE MALE GENITAL ORGANS (8) Suicidal ideation Current Visit: Yes Status: Acute Code(s): R45.851 - SUICIDAL IDEATIONS (9) Thrombocytosis Current Visit: Yes Status: Acute (10) Atrial fibrillation Current Visit: Yes Status: Chronic Code(s): I48.91 - UNSPECIFIED ATRIAL FIBRILLATION (11) Restless leg syndrome Current Visit: Yes Status: Chronic (12) Unable to care for self Current Visit: No Status: Acute Code(s): Z78.9 - OTHER SPECIFIED HEALTH STATUS (13) Yeast dermatitis Current Visit: No Status: Acute Code(s): B37.2 - CANDIDIASIS OF SKIN AND NAIL (14) Anemia Current Visit: No Status: Chronic Code(s): D64.9 - ANEMIA, UNSPECIFIED (15) HLD (hyperlipidemia) Current Visit: No Status: Chronic Code(s): E78.5 - HYPERLIPIDEMIA, UNSPECIFIED (16) HTN (hypertension) Current Visit: No Status: Chronic Code(s): I10 - ESSENTIAL (PRIMARY) HYPERTENSION (17) Major depressive disorder Current Visit: No Status: Chronic Code(s): F32.9 - MAJOR DEPRESSIVE DISORD ER, SINGLE EPISODE, UNSPECIFIED (18) Morbid obesity Current Visit: No Status: Chronic Code(s): E66.01 - MORBID (SEVERE) OBESITY DUE TO EXCESS CALORIES (19) Type 2 diabetes mellitus Current Visit: No Status: Chronic
[2024-12-29 05:20] LABS: ALBUMIN 3.3 g/dL (3.5-5.0); ANION GAP 7.6 MEQ/L (5-15); BILIRUBIN,TOTAL 0.3 mg/dL (0.2-1.3); Calcium 8.8 mg/dL (8.4-10.2); Creatinine 1 0.78 mg/dL (0.66-1.25); EST GLOMERULAR FILTRATION RATE 102.1 ML/MIN; Potassium 4.2 mmol/L (3.5-5.1); Total Protein 6.2 g/dL (6.3-8.2)
[2024-12-29 06:37] LABS: Slide Review 1 YES
--- NOTE | 2024-12-29 07:27 | PCM.DS ---
Discharge Summary Date of Admission: 12/19/24 14:21 Date of Discharge: 12/29/24 Admitting Physician: SHEBA LUNDBERG MD Consults: Consults on Case 12/19/24 14:35 Psychiatric Consult STAT 12/19/24 14:45 Consult Podiatry ROUTINE 12/24/24 11:18 Notify Physician ROUTINE 12/26/24 10:29 Psychiatric Consult ROUTINE Primary Care Provider: MARCELLO CHERRY Allergies Allergies clindamycin Allergy (Verified 12/19/24 14:51) Penicillins Allergy (Verified 12/19/24 14:51) Sulfa (Sulfonamide Antibiotics) Allergy (Verified 12/19/24 14:51) Hospital Summary - Hospital Course Hospital Course: Mr. Taylor is a 59-year-old male with a complex medical history including PTSD, bipolar disorder, diabetes, atrial fibrillation, peripheral neuropathy, osteoarthritis, chronic cellulitis, and recurrent infections with MRSA and Pseudomonas. He was admitted with worsening right thigh and groin cellulitis and non-compliance with wound care. His blood glucose levels were unstable, requiring insulin adjustments due to nocturnal hypoglycemic episodes. The patient also experienced diarrhea, which has improved with treatment. Wound cultures grew Pseudomonas, resistant to Levaquin, leading to a change in an tibiotics to Merrem. Despite ongoing concerns with his wound healing and refusal to follow care recommendations, including the use of nystatin powder for yeast infection and proper skin care, his condition is stable. The patient was emergently detained due to suicidal ideation but has since denied current suicidal thoughts and refused further psychiatric care. [facility] has evaluated patient safety plan obtained. ED was not continued. A PICC line was placed for continued antibiotic therapy, and he is being transferred [facility] for continued wound care and IV antibiotics. His mental health remains a concern, but he is psychologically stable at discharge. Given his ongoing medical needs, particularly for wound care and intravenous antibiotics, he is being transferred to for continued treatment. Discharge Note I spent 35 minutes [id number] with the patient on the day of discharge performing discharge exam, discussing hospital stay and discharge instructions with patient and caregivers, preparation of discharge records, prescriptions & referral forms and addressing any questions/concerns the patient had as documented above. - Vitals & Intake/Output Vital Signs: Vital Signs Temperature 97.0 F 12/28/24 23:51 Pulse Rate 59 L 12/28/24 23:51 Respiratory Rate 18 12/29/24 04:00 Blood Pressure 146/73 12/28/24 23:51 O2 Sat by Pulse Oximetry 95 12/28/24 23:51 Intake & Output: Intake & Output 12/26/24 12/27/24 12/28/24 12/29/24 11:59 11:59 11:59 11:59 Intake Total 1844 1710 2100 940 Balance 1844 1710 2100 940 - Lab Result Diagrams: 12/29/24 04:56 12/29/24 04:56 Lab Results-Last 24 Hrs: Lab Results-Last 24 Hours 12/28/24 12/29/24 12/29/24 Range/Units 05:20 04:56 04:56 WBC 6.0 (4.23-9.07) x10^3/uL RBC 4.04 L (4.63-6.08) x10^6/uL Hgb 7.6 L (13.7-17.5) g/dL Hct 26.7 L (40.1-51.0) % MCV 66.1 L (79.0-92.2) fL MCH 18.8 L (25.7-32.2) pg MCHC 28.5 L (32.3-36.5) g/dL RDW 20.4 H (11.6-14.4) % Plt Count 353 H (163-337) x10^3/uL MPV 9.5 (9.4-12.4) fL Gran % 57.0 (34.0-67.9) % Immature Gran % (Auto) 0.5 H (0.001-0.429) % Nucleat RBC Rel Count 0.0 (0.00-0.2) % Eos # (Auto) 0.46 (0.04-0.54) x10^3/uL Immature Gran # (Auto) 0.03 (0.001-0.031) x10^3u/L Absolute Lymphs (auto) 1.47 (1.32-3.57) x10^3/uL Absolute Monos (auto) 0.57 (0.30-0.82) x10^3/uL Absolute Nucleated RBC 0.00 (0.00-0.012) x10^3u/L Lymphocytes % 24.6 (21.8-53.1) % Monocytes % 9.5 (5.3-12.2) % Eosinophils % 7.7 H (0.8-7.0) % Basophils % 0.7 (0.2-1.2) % Absolute Granulocytes 3.41 (1.78-5.38) x10^3/uL Basophils # 0.04 (0.01-0.08) x10^3/uL Sodium 140 (135-145) mmol/L Potassium 4.2 (3.5-5.1) mmol/L Chloride 98 (98-107) mmol/L Carbon Dioxide 39 H (22-30) mmol/L Anion Gap 7.6 (5-15) MEQ/L BUN 22 H (9-20) mg/dL Creatinine 0.78 (0.66-1.25) mg/dL Estimated GFR 102.1 ML/MIN Glucose 105 (74-106) mg/dL Calcium 8.8 (8.4-10.2) mg/dL Total Bilirubin 0.30 (0.2-1.3) mg/dL AST 32 (17-59) U/L ALT 22 (0-50) U/L Alkaline Phosphatase 136 H (38-126) U/L Serum Total Protein 6.2 L (6.3-8.2) g/dL Albumin 3.3 L (3.5-5.0) g/dL Slides for Path Review YES YES Micro Results-Entire Visit: Microbiology 12/25/24 15:35 Wound Culture - Final Leg - Right Posterior Pseudomonas Aeruginosa 12/19/24 12:50 Blood Culture - Final Blood 12/19/24 12:58 Blood Culture - Final Blood Accuchecks Date 12/28/24 Date 12/28/24 Date 12/28/24 Date 12/28/24 Time 21:00 Time 16:27 Time 12:27 Time 07:30 - Radiology Exams Ordered Rad Exams-Entire Visit: Radiology Procedures Category Date Time Status CHEST 1 VIEW (PORTABLE) Stat Exams 12/28/24 12:17 Completed - Procedures and Test Procedures and Tests throughout Hospitalization: Therapy Orders & Screens 12/19/24 15:25 OT Screen per Nursing Assess ONCE Comment: Protocol Order Physician Instructions: Greater than 3 points order OT Admission Screening Reason For Exam: Triggered on Admission Diagnosis: Chronic ulcer, excoriated skin left inguinal area Open Wound/Cellutlitis/Pressure Ulcers: Yes Acute Fx/ORIF/Change in wt bearing status: Yes Severe MUSCULOSKELETAL pain: No ADL Dysfunction: Yes Acute CVA w/Hemiparesis/Hemiplegia: No Decreased Functional Mobility/Strength: Yes Sprain/Strain: No Acute Post-op Mobility Dysfunction: No Total Points: 14 PT Screen per Nursing Assess ONCE Comment: Protocol Order Physician Instructions: Greater than 3 points order PT Admission Screenin Reason For Exam: Triggered on Admission Diagnosis: Chronic ulcer, excoriated skin left inguinal area Open Wound/Cellutlitis/Pressure Ulcers: Yes Acute Fx/ORIF/Change in wt bearing status: Yes Severe MUSCULOSKELETAL pain: No ADL Dysfunction: Yes Acute CVA w/Hemiparesis/Hemiplegia: No Decreased Functional Mobility/Strength: Yes Sprain/Strain: No Acute Post-op Mobility Dysfunction: No Total Points: 14 12/19/24 15:39 PT Eval & Treat (MD Order) ONCE Reason for Eval:: wound right thigh Diagnosis: Chronic ulcer, excoriated skin left inguinal area Discharge Exam Wound Assessment: Skin/Wound Assessment Wound/Incision Assessment Start: 12/19/24 15:25 Text: Status: Active Freq: Q6H Protocol: Document 12/29/24 02:00 LB (Rec: 12/29/24 03:37 LB [id number]) Wound/Incision Assessment Right groin/scrotum Wound Assessment Shift Assessment Wound Type excoriation Wound Stage Non Pressure Wound General Appearance Open to air,Draining Right Thigh Wound Assessment Shift Assessment Wound Type ulceration Wound Stage Non Pressure Wound Primary Dressing abd pads Secondary Dressing Gauze Roll/Wrap Comment dressing CDI Wound Photo Photo Taken No Final Diagnosis/Problem List - Final Discharge Diagnosis/Problem (1) Cellulitis Current Visit: Yes Status: Acute Assessment & Plan: Groin and right upper thigh/ back side of leg - Podiatry consult- reviewed note and agree with plan - Continue vanc/levaquin - BC x2 negative -Wound culture pending - CBC, CMP reviewed -continue lasix 4/: -WBC reviewed and WNL at 7.1 -Continue levaquin -Wound cult with gram - ID - discontinue vanc -Continue lasix 4/2: -WBC reviewed at 7.3 -Wound culture with pseudomonas - resistant to Levaquin - will start merem 12/28: -PICC placed for 14 days of Merem for pseudomonas on wound culture -Podiatry following -WBC reviewed at 6.1 -SNF placement pending for continued wound care 12/29: -[facility] eval and continued care with ID- He will transfer today -WBC reviewed and stable at 6.0 Code(s): L03.90 - CELLULITIS, UNSPECIFIED (2) Bipolar disorder Current Visit: Yes Status: Acute Assessment & Plan: - Start Seroquel 50 BID Code(s): F31.9 - BIPOLAR DISORDER, UNSPECIFIED (3) Chronic wound Current Visit: Yes Status: Acute Assessment & Plan: - Levaquin and vancomycin- after reviewing previous culture results - Podiatry consult- reviewed note and agree with plan - BC x2 negative - Wound culture pending - PT for wound care - Refused Burger and scrotal sling to aide in wound care- urinating on self 12/26: -Wound culture with gram - ID - dc vanc 12/27: -Wound culture with pseudomonas - resistant to levaquin - will start Merem Code(s): T14.8XXA - OTHER INJURY OF UNSPECIFIED BODY REGION, INITIAL ENCOUNTER (4) Diarrhea Current Visit: Yes Status: Acute Assessment & Plan: - Imodium - Education provided on Imodium dosing and not to exceed daily dosing for safety reasons - Probiotics - C-Diff pending - patient declines to collect stool specimen 12/26: -cdiff negative 12/28: -Reports diarrheal episodes less frequent Code(s): R19.7 - DIARRHEA, UNSPECIFIED (5) Generalized weakness Current Visit: Yes Status: Acute Assessment & Plan: -PT/OT Code(s): R53.1 - WEAKNESS (6) Hypocalcemia Current Visit: Yes Status: Acute Assessment & Plan: - Tums BID -resolved Code(s): E83.51 - HYPOCALCEMIA (7) Scrotal edema Current Visit: Yes Status: Acute Assessment & Plan: - Pt is incontinent of urine thus causing irritation of skin on legs - Scrotal sling- refused - Place burger to aide in perineal wounds- declined - Cont. lasix Code(s): N50.89 - OTHER SPECIFIED DISORDERS OF THE MALE GENITAL ORGANS (8) Suicidal ideation Current Visit: Yes Status: Acute Assessment & Plan: - States he will kill himself with a gun if discharged or has no assets to live in a alf- Pt stated his original plan was to be hit by a train [place] - Pt states he can no longer take care of himself - Pt refused to sign safety plan advised by mental health provider -Emergency detained and signed by chief medical technologist - Phone, tele, and any items that could be used to injure self taken out of room for safety. - pt moved closer to nurses station - Accepted by [facility] for medical psych bed- awaiting bed to open - Pt is on a 72 hour ED hold that started evening- weekends do not count. - Started seroquel 50 BID 12/26: -[facility] pending [facility]- patient reports he is no longer having suicidal thoughts- consult for re-eval with [facility] - ED expires today - may need to get extension 12/27: -[facility] re-consulted- unable to obtain extension on ED- patient no longer having suicidal thoughts- declines transfer to - working on SNF placement 12/28: -Denies suicidal/homicidal ideation 12/29: - has accepted patient and updated on current psychiatric status - patient will transfer to a medical floor rather than a psychiatric floor Code(s): R45.851 - SUICIDAL IDEATIONS (9) Thrombocytosis Current Visit: Yes Status: Acute Assessment & Plan: - Likely 2:2 infection, inflammation, anemia -trend plts now at [id number] (10) Atrial fibrillation Current Visit: Yes Status: Chronic Assessment & Plan: - Continue Xarelto - Tele Code(s): I48.91 - UNSPECIFIED ATRIAL FIBRILLATION (11) Restless leg syndrome Current Visit: Yes Status: Chronic Assessment & Plan: - Continue requip (12) Unable to care for self Current Visit: No Status: Acute Assessment & Plan: - Per pt wants alf placement but not willing to sign over assets. - Case management consult - Psych eval X2 12/26: -Psych to re-eval patient- [facility] pending [facility] for psych and wound care- may need ext on ED 12/27: -CM looking into SNF for placement 12/28: -SNF pending level II evaluation/[facility] transfer pending with update of psychiatric eval Code(s): Z78.9 - OTHER SPECIFIED HEALTH STATUS (13) Yeast dermatitis Current Visit: No Status: Acute Assessment & Plan: - Refusing nystatin power - Will only allow staff to use barrier cream on affect areas thus skin not healing - Started Fluconazole 800mg PO once, then 400mg daily thereafter per pharmacy recommendation Code(s): B37.2 - CANDIDIASIS OF SKIN AND NAIL (14) Anemia Current Visit: No Status: Chronic Assessment & Plan: - Chronic - + Iron def anemia - Started ferrous sulfate daily Code(s): D64.9 - ANEMIA, UNSPECIFIED (15) HLD (hyperlipidemia) Current Visit: No Status: Chronic Assessment & Plan: - Continue statin Code(s): E78.5 - HYPERLIPIDEMIA, UNSPECIFIED (16) HTN (hypertension) Current Visit: No Status: Chronic Assessment & Plan: - BP stable - Continue home meds Code(s): I10 - ESSENTIAL (PRIMARY) HYPERTENSION (17) Major depressive disorder Current Visit: No Status: Chronic Assessment & Plan: - Continue home meds Code(s): F32.9 - MAJOR DEPRESSIVE DISORDER, SINGLE EPISODE, UNSPECIFIED (18) Morbid obesity Current Visit: No Status: Chronic Assessment & Plan: - Advised ADA diet and exercise control Code(s): E66.01 - MORBID (SEVERE) OBESITY DUE TO EXCESS CALORIES (19) Type 2 diabetes mellitus Current Visit: No Status: Chronic Assessment & Plan: - A1C 7.19- 11/02/24- uncontrolled - Continue home insulin dosing - Diabetic education provided on good glycemic control for wound healing - Accuchecks ac/hs - Consistent carb diet - Using dexcom - Hypoglycemic episodes - Changed lantus to 60 units BID from 66 units BID - Changed Breakfast and Dinner humalog to 20 units with meals - Keep lunch humalog at 14 units 4/: -Blood sugar improved with above changes 4/2: -Adjusted lantus to 60 units daily - breakfast 17u, lunch 11units, dinner 17 units 4/3: -Blood glucose levels reviewed and improved VTE: Xarelto PPI: Pepcid Next of KIN: Amor Loaiza [phone] D/C plan: pending placement Code(s): L03.90 - CELLULITIS, UNSPECIFIED (2) Bipolar disorder Current Visit: Yes Status: Acute Code(s): F31.9 - BIPOLAR DISORDER, UNSPECIFIED (3) Chronic wound Current Visit: Yes Status: Acute Code(s): T14.8XXA - OTHER INJURY OF UNSPECIFIED BODY REGION, INITIAL ENCOUNTER (4) Diarrhea Current Visit: Yes Status: Acute Code(s): R19.7 - DIARRHEA, UNSPECIFIED (5) Generalized weakness Current Visit: Yes Status: Acute Code(s): R53.1 - WEAKNESS (6) Hypocalcemia Current Visit: Yes Status: Acute Code(s): E83.51 - HYPOCALCEMIA (7) Scrotal edema Current Visit: Yes Status: Acute Code(s): N50.89 - OTHER SPECIFIED DISORDERS OF THE MALE GENITAL ORGANS (8) Suicidal ideation Current Visit: Yes Status: Acute Code(s): R45.851 - SUICIDAL IDEATIONS (9) Thrombocytosis Current Visit: Yes Status: Acute (10) Atrial fibrillation Current Visit: Yes Status: Chronic Code(s): I48.91 - UNSPECIFIED ATRIAL FIBRILLATION (11) Restless leg syndrome Current Visit: Yes Status: Chronic (12) Unable to care for self Current Visit: No Status: Acute Code(s): Z78.9 - OTHER SPECIFIED HEALTH STATUS (13) Yeast dermatitis Current Visit: No Status: Acute Code(s): B37.2 - CANDIDIASIS OF SKIN AND NAIL (14) Anemia Current Visit: No Status: Chronic Code(s): D64.9 - ANEMIA, UNSPECIFIED (15) HLD (hyperlipidemia) Current Visit: No Status: Chronic Code(s): E78.5 - HYPERLIPIDEMIA, UNSPECIFIED (16) HTN (hypertension) Current Visit: No Status: Chronic Code(s): I10 - ESSENTIAL (PRIMARY) HYPERTENSION (17) Major depressive disorder Current Visit: No Status: Chronic Code(s): F32.9 - MAJOR DEPRESSIVE DISORDER, SINGLE EPISODE, UNSPECIFIED (18) Morbid obesity Current Visit: No Status: Chronic Code(s): E66.01 - MORBID (SEVERE) OBESITY DUE TO EXCESS CALORIES (19) Type 2 diabetes mellitus Current Visit: No Status: Chronic - Discharge Discharge Date: 12/29/24 Disposition: DC TO OTHER HOSP Condition: Stable Prescriptions: New Ferrous Sulfate 325 mg [Feosol 325 mg] 325 mg PO DAILY 30 Days #30 tablet Nystatin Powder 15 gm [Nystop Powder 15 gm] 0 gm TP BID Fluconazole 100 mg [Diflucan 100 MG] 400 mg PO DAILY tablet Glucagon 1 mg [GlucaGen 1 MG] 1 mg IM PRN PRN PRN Reason: Hypoglycemia Meropenem [Merrem] 1 gm IV Q8HT Quetiapine Fumarate 25 mg [Seroquel 25 MG] 50 mg PO BID tablet Continue Metoprolol Tartrate 25 mg [Lopressor 25MG Tab] 25 mg PO BID Ergocalciferol (Vitamin D2) [Vitamin D2] 1,250 mcg PO WEEKLY Insulin Glargine [Lantus Insulin] 66 unit SQ BID Potassium Chloride 10 meq PO BID Ropinirole HCl 0.5 mg [Requip 0.5 MG] 0.5 mg PO HS Rivaroxaban [Xarelto] 20 mg PO HS Atorvastatin Calcium 40 mg PO DAILY Loperamide HCl 2 mg [Imodium 2 mg] 2 mg PO Q2H/PRN PRN PRN Reason: Diarrhea Insulin Lispro [Humalog] 14 unit SQ LUNCH Insulin Lispro [Humalog] 24 unit SQ BREAKFAST Furosemide 20 mg [Lasix 20 mg] 20 mg PO BID Insulin Lispro [Humalog] 26 unit SQ DINNER Torsemide 20 mg [Demadex 20 mg] 20 mg PO BID Famotidine 20 mg PO DAILY Follow up with: EVA ODELL FNP [Primary Care Provider] -
[2024-12-29 07:29] VITALS: BP 115/55; PULSE 55; RESP 16; TEMP 97.7; O2SAT 97
== END 2024-12-29 08:43 | disposition short-term general hospital (02) ==
LOC: ED 11:37 → MED SURG 14:21
PROVIDERS: ADMIT Internal Medicine; ATTEND Internal Medicine
DX: L03.115 Cellulitis of right lower limb (principal); L03.116 Cellulitis of left lower limb; Z59.48 Other specified lack of adequate food; Z59.12 Inadequate housing utilities; B37.2 Candidiasis of skin and nail; R45.851 Suicidal ideations; T14.8XXA Other injury of unspecified body region, initial encounter; Z78.9 Other specified health status; D64.9 Anemia, unspecified; E78.5 Hyperlipidemia, unspecified; I10 Essential (primary) hypertension; E66.01 Morbid (severe) obesity due to excess calories; E11.65 Type 2 diabetes mellitus with hyperglycemia; G25.81 Restless legs syndrome; I48.91 Unspecified atrial fibrillation; E83.51 Hypocalcemia; N50.89 Other specified disorders of the male genital organs; R19.7 Diarrhea, unspecified; I87.2 Venous insufficiency (chronic) (peripheral); Z65.9 Problem related to unspecified psychosocial circumstances; R53.1 Weakness; F31.9 Bipolar disorder, unspecified; R60.0 Localized edema; Z79.899 Other long term (current) drug therapy; Z79.01 Long term (current) use of anticoagulants
CPT/HCPCS: 29580; 36415; 36584; 71045; 80053; 80202; 82607; 82728; 82746; 82947; 83540; 83550; 84134; 85025; 85027; 87040; 87070; 87077; 87186; 87493; 93268; 94760; 97161; 97530; 99222; 99232; 99285; G0378; Q3014; 99284; J1171; J1817; J1956; A9270-GY; J3370

== ENCOUNTER 2025-02-04 09:24 | Emergency (ER) | payer MEDICARE, OTHER ==
[2025-02-04 09:39] VITALS: PULSE 90; TEMP 98.6
[2025-02-04 10:31] LABS: Absolute Neutrophil Ct (ANC) 5.19 x10^3/uL (1.78-5.38); BASOPHIL % 0.3 % (0.2-1.2); Basophil (Absolute #) 0.02 x10^3/uL (0.01-0.08); Eosinophil % 1.4 % (0.8-7.0); Eosinophil (Absolute #) 0.09 x10^3/uL (0.04-0.54); Hematocrit 27.6 % (40.1-51.0); IMMATURE GRAN # 0.03 x10^3u/L (0.001-0.031); IMMATURE GRAN % 0.5 % (0.001-0.429); Lymphocyte (Absolute #) 0.31 x10^3/uL (1.32-3.57); Mean Cell Volume 66.5 fL (79.0-92.2); Mean Corpuscular Hemoglobin 19.3 pg (25.7-32.2); Mean Platelet Volume 9.2 fL (9.4-12.4); Monocyte (Absolute #) 0.62 x10^3/uL (0.30-0.82); Monocytes % 9.9 % (5.3-12.2); Neutrophil % 82.9 % (34.0-67.9); Platelet Count 424 x10^3/uL (163-337); Red Blood Count 4.15 x10^6/uL (4.63-6.08); Red Cell Distribution Width 19.7 % (11.6-14.4); White Blood Count 6.3 x10^3/uL (4.23-9.07)
[2025-02-04 10:44] LABS: ALBUMIN 3.3 g/dL (3.5-5.0); ANION GAP 13.7 MEQ/L (5-15); BILIRUBIN,TOTAL 0.5 mg/dL (0.2-1.3); Calcium 8.6 mg/dL (8.4-10.2); Creatinine 1 0.71 mg/dL (0.66-1.25); Potassium 4.2 mmol/L (3.5-5.1); Total Protein 6.6 g/dL (6.3-8.2)
[2025-02-04] MEDS ORDERED: Hydromorphone 1 mg/ml Injection ONE (11:25)
[2025-02-04] MEDS ORDERED: Zofran 4 MG/2 ML VIAL ONE (11:25)
--- NOTE | 2025-02-04 11:49 | ERPHSYRPT ---
- History of Present Illness Source: patient Exam Limitations: no limitations Patient Subjective Stated Complaint: pt c/o of a wound on his right upper leg that reports it being a brown recluse bite from approx 40 years ago Triage Nursing Assessment: Pt brought to the ER by EMS, vitals wnl, rates pain as 9/10, pulses normal, skin n/w/d, anterior/medial/posterior upper right leg with green drainage, pt is to have surgery on the to remove a section of his leg and clean it, foul smell, no difficulty breathing, denies chest pain Physician History: Patient has chronic wounds on his lower extremities that are healing. He has vascular surgery scheduled in about 10 days. He has been followed by team at [facility]. He was recently admitted for this and was discharged few weeks ago. He got outpatient antibiotics. The last culture grew Pseudomonas. It was sensitive to a lot of medicines I believe he was on meropenem.There were no oral medicines at the patient's culture was sensitive to.He came in today because it was getting worse. Some erythema was expanding out along the margins of the wound. Also his discharge and drainage has increased pretty significantly and he says it is becoming a lot more painful. He does not have any fever chills nausea vomiting or other systemic or toxic symptoms. Quality: constant Severity of Pain-Max: severe Severity of Pain-Current: moderate Modifying Factors: Improves With: nothing Associated Symptoms: none Allergies/Adverse Reactions: clindamycin Allergy (Verified 02/04/25 09:42) Penicillins Allergy (Verified 02/04/25 09:42) Sulfa (Sulfonamide Antibiotics) Allergy (Verified 02/04/25 09:42) Home Medications: Ergocalciferol (Vitamin D2) [Vitamin D2] 1,250 mcg PO WEEKLY 02/05/23 [History] Metoprolol Tartrate 25 mg [Lopressor 25MG Tab] 12.5 mg PO BID 02/05/23 [History] Insulin Glargine [Lantus Insulin] 66 unit SQ BID 10/18/23 [History] Potassium Chloride 10 meq PO BID 02/03/24 [History] Atorvastatin Calcium 20 mg PO DAILY 06/12/24 [History] Rivaroxaban [Xarelto] 20 mg PO HS 06/12/24 [History] Ropinirole HCl 0.5 mg [Requip 0.5 MG] 0.5 mg PO HS 06/12/24 [History] Insulin Lispro [Humalog] 14 unit SQ LUNCH 11/02/24 [History] Insulin Lispro [Humalog] 24 unit SQ BREAKFAST 11/02/24 [History] Insulin Lispro [Humalog] 26 unit SQ DINNER 11/02/24 [History] Torsemide 20 mg [Demadex 20 mg] 20 mg PO BID 12/11/24 [History] Hx Tetanus, Diphtheria Vaccination/Date Given: Yes Hx Influenza Vaccination/Date Given: Yes Hx Pneumococcal Vaccination/Date Given: Yes Travel Risk - International Travel Have you traveled outside of the country in past 3 weeks: No - Emerging Infectious Disease Are you exhibiting symptoms associated with any current EIDs: No Symptoms: Diarrhea - Review of Systems Constitutional: No Symptoms Eyes: No Symptoms Genitourinary Symptoms: No Symptoms Neurological: No Symptoms Psychological: No Symptoms Hematologic/Lymphatic: No Symptoms Immunological/Allergic: No Symptoms All Other Systems: Reviewed and Negative - Past Medical History Pertinent Past Medical History: Yes Neurological History: Peripheral Neuropathy ENT History: No Pertinent History Cardiac History: Angina, Arrhythmia Respiratory History: No Pertinent History Endocrine Medical History: Diabetes Type II Musculoskeletal History: Osteoarthritis GI Medical History: No Pertinent History History: No Pertinent History Psycho-Social History: No Pertinent History Male Reproductive Disorders: No Pertinent History Other Medical History: HISTORY OF B LE WOUNDS, PARTIAL SEPTUS INVERTUS, RUPTURED L ROTATOR CUFF. - Past Surgical History Past Surgical History: Yes Neuro Surgical History: No Pertinent History Cardiac: No Pertinent History Respiratory: No Pertinent History Gastrointestinal: No Pertinent History Genitourinary: No Pertinent History Musculoskeletal: No Pertinent History Male Surgical History: No Pertinent History Other Surgical History: PINWHEEL DRAIN IN BACK TO DRAIN FLUIDS_DONE BY [employer] MEZA 2021 Significant Family History: cancer - Social History Smoking Status: Never smoker Exposure to second hand smoke: No Drug Use: none - Social Determinants of Health Will the patient participate in the screening: Yes Do you worry about a steady place to live?: No Do you have any problems with any of the following?: No known problems In the past 12 months,have you had to go without utilities?: No Transportation Issues: No Has anyone in your support network made you feel unsafe?: No Have you or anyone in your house had to go w/o enough food: No - Nursing Vital Signs Nursing Vital Signs: Initial Vital Signs Temperature 98.6 F 02/04/25 09:29 Pulse Rate 90 02/04/25 09:29 Blood Pressure 136/82 02/04/25 09:29 O2 Sat by Pulse Oximetry 99 02/04/25 09:29 Pain Scale Pain Intensity 6 - Physical Exam General Appearance: no apparent distress Eyes, Ears, Nose, Throat Exam: normal ENT inspection Neck Exam: normal inspection Cardiovascular/Respiratory Exam: chest non-tender, normal breath sounds, regular rate/rhythm Gastrointestinal/Abdominal Exam: non-tender, soft Legs Exam: bilateral leg: other (Unhealing ulcerations more so on the right leg than the left. There is some new expansion of the surrounding erythema. It is warm to the touch.) Knees Exam: bilateral knee: non-tender, normal inspection, normal range of motion Neuro/Tendon Exam: normal sensation (No acute neurological Findings in the lower extremities) Mental Status Exam: alert, oriented x 3 Skin Exam: normal color SpO2: 95 - Course Nursing assessment & vital signs reviewed: Yes Ordered Tests: Active Orders 24 hr Category Date Time Status CBC W DIFF Stat Lab 02/04/25 10:22 Completed CMP Stat Lab 02/04/25 10:22 Completed CULTURE,WOUND Stat Lab 02/04/25 10:12 Received Medication Summary Discontinued Medications Generic Name Dose Route Start Last Admin Trade Name Freq PRN Reason Stop Dose Admin Hydromorphone HCl 1 mg 02/04/25 11:18 02/04/25 12:08 Hydromorphone 1 Mg/1ml Inj IV 02/04/25 11:19 1 mg STAT ONE Administration Hydromorphone HCl Confirm 02/04/25 11:25 Hydromorphone 1 Mg/1ml Inj Administered 02/04/25 11:26 Dose 1 mg .ROUTE .STK-MED ONE Ondansetron HCl 4 mg 02/04/25 11:18 02/04/25 12:06 Ondansetron Hcl 4 Mg/2 Ml Vial IV 02/04/25 11:19 4 mg STAT ONE Administration Ondansetron HCl Confirm 02/04/25 11:25 Ondansetron Hcl 4 Mg/2 Ml Vial Administered 02/04/25 11:26 Dose 4 mg .ROUTE .STK-MED ONE Lab/Rad Data: Laboratory Result Diagrams 02/04/25 10:22 02/04/25 10:22 Laboratory Results 02/04/25 02/04/25 Range/Units 10:22 10:22 WBC 6.3 (4.23-9.07) x10^3/uL RBC 4.15 L (4.63-6.08) x10^6/uL Hgb 8.0 L (13.7-17.5) g/dL Hct 27.6 L (40.1-51.0) % MCV 66.5 L (79.0-92.2) fL MCH 19.3 L (25.7-32.2) pg MCHC 29.0 L (32.3-36.5) g/dL RDW 19.7 H (11.6-14.4) % Plt Count 424 H (163-337) x10^3/uL MPV 9.2 L (9.4-12.4) fL Gran % 82.9 H (34.0-67.9) % Immature Gran % (Auto) 0.5 H (0.001-0.429) % Nucleat RBC Rel Count 0.0 (0.00-0.2) % Eos # (Auto) 0.09 (0.04-0.54) x10^3/uL Immature Gran # (Auto) 0.03 (0.001-0.031) x10^3u/L Absolute Lymphs (auto) 0.31 L (1.32-3.57) x10^3/uL Absolute Monos (auto) 0.62 (0.30-0.82) x10^3/uL Absolute Nucleated RBC 0.00 (0.00-0.012) x10^3u/L Lymphocytes % 5.0 L (21.8-53.1) % Monocytes % 9.9 (5.3-12.2) % Eosinophils % 1.4 (0.8-7.0) % Basophils % 0.3 (0.2-1.2) % Absolute Granulocytes 5.19 (1.78-5.38) x10^3/uL Basophils # 0.02 (0.01-0.08) x10^3/uL Sodium 139 (135-145) mmol/L Potassium 4.2 (3.5-5.1) mmol/L Chloride 98 (98-107) mmol/L Carbon Dioxide 31 H (22-30) mmol/L Anion Gap 13.7 (5-15) MEQ/L BUN 11 (9-20) mg/dL Creatinine 0.71 (0.66-1.25) mg/dL Estimated GFR 105.0 ML/MIN Glucose 223 H (74-106) mg/dL Calcium 8.6 (8.4-10.2) mg/dL Total Bilirubin 0.50 (0.2-1.3) mg/dL AST 15 L (17-59) U/L ALT 10 (0-50) U/L Alkaline Phosphatase 107 (38-126) U/L Serum Total Protein 6.6 (6.3-8.2) g/dL Albumin 3.3 L (3.5-5.0) g/dL - Progress Progress: unchanged Progress Note: Patient was stable throughout stay.I reviewed his hospitalizations and visits. I went ahead and got another wound culture. I am assuming it Pseudomonas again his lab work all looked acceptable. I spoke with our hospitalist and he suggested that the patient go to since that is where his surgery is and that is where the wound care team has been following him as. We do have podiatry here but they cannot work on lesions above the knee which is what he has.He is scheduled actually at [facility] for vascular surgery. I called [facility] and spoke with Dr. Dhaliwal she agreed to accept the patient. 02/04/25 11:53 02/04/25 12:51 Discussed with : Other Medical Desision Making - Discussion of managment Care discussed with:: hospitalist - Diagnostic Testing Diagnostic test were ordered, analyzed, and reviewed by me: Yes - Risk of complications The pt has a mod risk of morbidity or mortality based on: Need for prescription drug management - Departure Departure Disposition: Transfer Clinical Impression: Ulcer of extremity due to chronic venous insufficiency, Uncontrolled diabetes mellitus Condition: Stable Critical Care Time: No Referrals: EVA ODELL [employer] [Primary Care Provider, UNKNOWN] - Follow up/PCP as directed
[2025-02-04] MEDS: Zofran 4 MG/2 ML VIAL IV ONE (12:06)
[2025-02-04] MEDS: Hydromorphone 1 mg/ml Injection IV ONE (12:08)
[2025-02-04 14:38] VITALS: BP 149/76; O2SAT 94
[2025-02-04 17:13] LABS: Slide Review 1 YES
== END 2025-02-04 14:38 | disposition short-term general hospital (02) ==
LOC: ED 09:24
DX: I87.2 Venous insufficiency (chronic) (peripheral) (principal); L97.128 Non-pressure chronic ulcer of left thigh with other specified severity; L97.118 Non-pressure chronic ulcer of right thigh with other specified severity; E11.65 Type 2 diabetes mellitus with hyperglycemia; E11.42 Type 2 diabetes mellitus with diabetic polyneuropathy; Z79.4 Long term (current) use of insulin; Z79.01 Long term (current) use of anticoagulants; Z79.899 Other long term (current) drug therapy
CPT/HCPCS: 36415; 80053; 85025; 87070; 87077; 87186; 96374; 96375; 99283; 99285; J1171; J2405

== ENCOUNTER 2025-06-14 18:01 | Emergency (ER) | payer MEDICARE ==
--- NOTE | 2025-06-14 18:13 | ERPHSYRPT ---
- History of Present Illness Source: patient Physician History: The patient presents stating that his doctor told him that he likely had a viral infection. He presents for evaluation. 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 His chronic left lower extremity swelling had his legs reviewed and wrapped by podiatry reporting no new symptoms of infection today. Complains of some general malaise tonight. He states he just want to get checked out. He has had a cough over the last several days is nonproductive. He has had no chest pain or shortness of breath.He denies any urinary symptoms. Denies vomiting. Denies symptoms of dehydration. No other associated symptoms Allergies/Adverse Reactions: clindamycin Allergy (Verified 06/14/25 18:34) Penicillins Allergy (Verified 06/14/25 18:34) Sulfa (Sulfonamide Antibiotics) Allergy (Verified 06/14/25 18:34) Home Medications: Insulin Glargine [Lantus Insulin] 66 unit SQ BID 10/18/23 [History] Insulin Lispro [Humalog] 14 unit SQ LUNCH 11/02/24 [History] Insulin Lispro [Humalog] 24 unit SQ BREAKFAST 11/02/24 [History] Insulin Lispro [Humalog] 26 unit SQ DINNER 11/02/24 [History] Hx Tetanus, Diphtheria Vaccination/Date Given: Yes Hx Influenza Vaccination/Date Given: Yes Hx Pneumococcal Vaccination/Date Given: Yes Travel Risk - Emerging Infectious Disease Are you exhibiting symptoms associated with any current EIDs: No Symptoms: Diarrhea - Review of Systems Constitutional: No Fever, No Chills Eyes: No Symptoms Ears, Nose, & Throat: No Symptoms Respiratory: Cough, No Dyspnea Cardiac: No Chest Pain, No Edema, No Syncope Abdominal/Gastrointestinal: No Abdominal Pain, No Nausea, No Vomiting, No Diarrhea Genitourinary Symptoms: No Dysuria Musculoskeletal: No Back Pain, No Neck Pain Skin: No Rash Neurological: No Dizziness, No Focal Weakness, No Sensory Changes Psychological: No Symptoms Endocrine: No Symptoms All Other Systems: Reviewed and Negative - Past Medical History Pertinent Past Medical History: Yes Neurological History: Peripheral Neuropathy ENT History: No Pertinent History Cardiac History: Angina, Arrhythmia Respiratory History: No Pertinent History Endocrine Medical History: Diabetes Type II Musculoskeletal History: Osteoarthritis GI Medical History: No Pertinent History History: No Pertinent History Psycho-Social History: No Pertinent History Male Reproductive Disorders: No Pertinent History Other Medical History: HISTORY OF B LE WOUNDS, PARTIAL SEPTUS INVERTUS, RUPTURED L ROTATOR CUFF. ruprured varicose vein right thisgh - Past Surgical History Past Surgical History: Yes Neuro Surgical History: No Pertinent History Cardiac: No Pertinent History Respiratory: No Pertinent History Gastrointestinal: No Pertinent History Genitourinary: No Pertinent History Musculoskeletal: No Pertinent History Male Surgical History: No Pertinent History Other Surgical History: PINWHEEL DRAIN IN BACK TO DRAIN FLUIDS_DONE BY [employer] MEZA 2021 Significant Family History: cancer - Social History Smoking Status: Never smoker Exposure to second hand smoke: No Drug Use: none - Social Determinants of Health In the past 12 months,have you had to go without utilities?: No Have you or anyone in your house had to go w/o enough food: No - Nursing Vital Signs Nursing Vital Signs: Initial Vital Signs Temperature 99.1 F 06/14/25 18:09 Pulse Rate 95 H 06/14/25 18:09 Blood Pressure 109/58 06/14/25 18:09 O2 Sat by Pulse Oximetry 98 06/14/25 18:09 Pain Scale Pain Intensity 3 - Physical Exam General Appearance: no apparent distress, alert Eye Exam: PERRL/EOMI, eyes nml inspection Ears, Nose, Throat Exam: normal ENT inspection, TMs normal, pharynx normal, moist mucous membranes Neck Exam: normal inspection, non-tender, supple, full range of motion Respiratory Exam: normal breath sounds, lungs clear, No respiratory distress Cardiovascular Exam: regular rate/rhythm, normal heart sounds, normal peripheral pulses Gastrointestinal/Abdomen Exam: soft, normal bowel sounds, No tenderness, No mass Back Exam: normal inspection, normal range of motion, No CVA tenderness, No vertebral tenderness Extremity Exam: normal range of motion, other (Chronic lymphedema of breath lower extremities. No cellulitis, neurovasc intact.) Neurologic Exam: alert, oriented x 3, cooperative, normal mood/affect, nml cerebellar function, nml station & gait, sensation nml, No motor deficits Skin Exam: normal color, warm, dry, No rash Lymphatic Exam: No adenopathy SpO2 Interpretation: normal Ordered Tests: Active Orders 24 hr Category Date Time Status CHEST 1 VIEW (PORTABLE) Stat Exams 06/14/25 18:25 Taken - Progress Progress Note: 06/14/25 18:35 I reviewed the patient's extensive lab work from today. He has normal white count. His only symptom clinically at this time is a similar productive cough he said for multiple days. Lungs were clear. Pneumonia chest x-ray to evaluate for any pneumonia. 06/14/25 18:54 Chest x-ray was reviewed and is unremarkable - Departure Clinical Impression: Viral upper respiratory infection Condition: Good Critical Care Time: No Referrals: EVA ODELL FNP [Primary Care Provider, UNKNOWN] - Follow up/PCP as directed Additional Instructions: Exam is consistent with a viral upper respiratory infection. Take Tylenol for any fever. Stay hydrated at home. Return for worsening cough difficulty breathing or concern
[2025-06-14 18:14] VITALS: TEMP 99.1; O2SAT 98
[2025-06-14 18:35] VITALS: BP 130/66; PULSE 80
--- NOTE | 2025-06-15 07:37 | XRAY ---
Indication: Cough. Comparison: December 28, 2024 Portable chest inflated and clear again with incidental tiny left apical calcified granuloma. Heart remains enlarged. Bony thorax intact with osteopenia and mild degenerative changes. No new/acute findings.
== END 2025-06-14 19:05 | disposition home or self-care (01) ==
LOC: ED 18:01
DX: J06.9 Acute upper respiratory infection, unspecified (principal); R05.1 Acute cough; R53.81 Other malaise; E11.42 Type 2 diabetes mellitus with diabetic polyneuropathy; Z79.4 Long term (current) use of insulin

== ENCOUNTER 2025-06-18 15:38 | Emergency (ER) | payer MEDICARE ==
[2025-06-18 16:08] VITALS: TEMP 97.8
--- NOTE | 2025-06-18 16:23 | ERPHSYRPT ---
- History of Present Illness Time Seen by Provider: 06/18/25 16:18 Source: patient Exam Limitations: no limitations Patient Subjective Stated Complaint: pt states he was told to come to the er due to a hemoglobin of 6.9 Triage Nursing Assessment: pt came into the er via wheelchair; pt transfer to bed with standby assist; pt is axo x4; skin pale, dry, warm; clear lung sounds in all lobes; clear apical heart tone; no respiratory distress present; pt speaking in full sentences; hypertensive Timing/Duration: today Severity: mild Associated Symptoms: denies symptoms Allergies/Adverse Reactions: clindamycin Allergy (Verified 06/18/25 15:49) Penicillins Allergy (Verified 06/18/25 15:49) Sulfa (Sulfonamide Antibiotics) Allergy (Verified 06/18/25 15:49) Home Medications: Insulin Glargine [Lantus Insulin] 66 unit SQ BID 10/18/23 [History] Insulin Lispro [Humalog] 14 unit SQ LUNCH 11/02/24 [History] Insulin Lispro [Humalog] 24 unit SQ BREAKFAST 11/02/24 [History] Insulin Lispro [Humalog] 26 unit SQ DINNER 11/02/24 [History] Hx Tetanus, Diphtheria Vaccination/Date Given: No Hx Influenza Vaccination/Date Given: No Hx Pneumococcal Vaccination/Date Given: No Travel Risk - International Travel Have you traveled outside of the country in past 3 weeks: No - Emerging Infectious Disease Are you exhibiting symptoms associated with any current EIDs: No Symptoms: Diarrhea - Review of Systems Constitutional: No Symptoms Eyes: No Symptoms Ears, Nose, & Throat: No Symptoms Respiratory: No Symptoms Cardiac: No Symptoms Abdominal/Gastrointestinal: No Symptoms (Patient denies any hematemesis or hematochezi) - Past Medical History Pertinent Past Medical History: Yes Neurological History: Peripheral Neuropathy ENT History: No Pertinent History Cardiac History: Angina, Arrhythmia Respiratory History: No Pertinent History Endocrine Medical History: Diabetes Type II Musculoskeletal History: Osteoarthritis GI Medical History: No Pertinent History History: No Pertinent History Psycho-Social History: No Pertinent History Male Reproductive Disorders: No Pertinent History Other Medical History: HISTORY OF B LE WOUNDS, PARTIAL SEPTUS INVERTUS, RUPTURED L ROTATOR CUFF. ruprured varicose vein right thisgh - Past Surgical History Past Surgical History: Yes Neuro Surgical History: No Pertinent History Cardiac: No Pertinent History Respiratory: No Pertinent History Gastrointestinal: No Pertinent History Genitourinary: No Pertinent History Musculoskeletal: No Pertinent History Male Surgical History: No Pertinent History Other Surgical History: PINWHEEL DRAIN IN BACK TO DRAIN FLUIDS_DONE BY [employer] MEZA 2021 Significant Family History: cancer - Social History Smoking Status: Never smoker Exposure to second hand smoke: No Drug Use: none - Social Determinants of Health Will the patient participate in the screening: Yes Do you worry about a steady place to live?: No Do you have any problems with any of the following?: No known problems In the past 12 months,have you had to go without utilities?: No Transportation Issues: No Has anyone in your support network made you feel unsafe?: No Have you or anyone in your house had to go w/o enough food: No - Nursing Vital Signs Nursing Vital Signs: Initial Vital Signs Temperature 97.8 F 06/18/25 15:50 Respiratory Rate 20 06/18/25 15:50 Pain Scale Pain Intensity 8 - Physical Exam General Appearance: no apparent distress Eye Exam: PERRL/EOMI Respiratory Exam: normal breath sounds Cardiovascular Exam: regular rate/rhythm Gastrointestinal/Abdomen Exam: soft, normal bowel sounds - Progress Progress Note: . . Patient informs me that he is here for transfusion he was seen and evaluated by his doctor who ordered some lab work and his hemoglobin was 6.9. It was 6.8 when he was here last week review of the old charts reveals chronic anemia patient denies any rectal bleeding or hematemesis patient is requesting transfusion. This will be arranged on an outpatient basis and order will be placed for 2 units of packed red blood cells we will obtain a type and screen today and schedule transfusion on an outpatient basis. Patient feels comfortable with this plan and will go home and follow-up with his doctor 06/18/25 16:20 - Departure Departure Disposition: Home Clinical Impression: Chronic anemia Condition: Stable Critical Care Time: No Referrals: EVA ODELL FNP [Primary Care Provider, UNKNOWN] - Follow up/PCP as directed
[2025-06-18 16:47] VITALS: BP 129/61; PULSE 73; RESP 15; O2SAT 96
== END 2025-06-18 16:53 | disposition home or self-care (01) ==
LOC: ED 15:38
DX: D64.9 Anemia, unspecified (principal); E11.42 Type 2 diabetes mellitus with diabetic polyneuropathy; Z79.4 Long term (current) use of insulin

== ENCOUNTER 2025-07-12 08:07 | Day surgery (SDC) | payer MEDICARE ==
[~2025-07-12 08:07] MED LIST: Sensorcaine 0.25% 10 ML ONE; XYLOCAINE 1% HCL 20 ML MDV ONE
--- NOTE | 2025-07-12 10:01 | XRAY ---
Indication: PICC line placement. Comparison: June 14, 2025 Portable chest demonstrates new left arm PICC line with tip projecting over SVC. Lungs remains clear. Heart remains enlarged. No new cardiopulmonary abnormalities.
[2025-07-12 10:03] LABS: BASOPHIL % 0.2 % (0.2-1.2); Basophil (Absolute #) 0.02 x10^3/uL (0.01-0.08); Eosinophil (Absolute #) 0.18 x10^3/uL (0.04-0.54); Hematocrit 26.0 % (40.1-51.0); Hemoglobin 7.3 g/dL (13.7-17.5); IMMATURE GRAN # 0.04 x10^3u/L (0.001-0.031); IMMATURE GRAN % 0.5 % (0.001-0.429); Lymphocyte (Absolute #) 0.51 x10^3/uL (1.32-3.57); Mean Corpuscular Hemoglobin 19.0 pg (25.7-32.2); Mean Corpuscular Hgb Concent. 28.1 g/dL (32.3-36.5); Monocyte (Absolute #) 0.47 x10^3/uL (0.30-0.82); NUCLEATED RBC # 0.00 x10^3u/L (0.00-0.012); NUCLEATED RBC % 0.0 % (0.00-0.2); Platelet Count 356 x10^3/uL (163-337); Red Blood Count 3.85 x10^6/uL (4.63-6.08); White Blood Count 8.2 x10^3/uL (4.23-9.07)
[2025-07-12 10:09] LABS: Calcium 8.7 mg/dL (8.4-10.2); Carbon Dioxide 26 mmol/L (22-30); Creatinine 1 1.47 mg/dL (0.66-1.25); EST GLOMERULAR FILTRATION RATE 53.9 ML/MIN; Glucose 207 mg/dL (74-106); Potassium 3.8 mmol/L (3.5-5.1); SGOT/AST 14 U/L (17-59); SGPT/ALT 13 U/L (0-50); Total Protein 6.6 g/dL (6.3-8.2)
[2025-07-12 10:57] LABS: Slide Review 1 YES
[2025-07-12] MEDS: Lactated Ringers 1,000 ML IV SCH (11:25)
[2025-07-12] MEDS: Maxipime 2 GM** 2 G in Sodium Chloride 0.9% 100 ML IV SCH (11:27)
[2025-07-12] MEDS ORDERED: Versed 2 MG/2 ML Injection ONE ×2 (12:19→12:26)
[2025-07-12] MEDS ORDERED: SUBLIMAZE 100 MCG/2 ML ONE (12:27)
[2025-07-12] MEDS ORDERED: Ketamine HCl 50 MG/ML ONE ×2 (12:32)
[2025-07-12] MEDS ORDERED: propofoL IV ONE (13:09)
[2025-07-12] MEDS ORDERED: GENTAMICIN SULFATE 0.1% CREAM TP PRN (14:52)
[2025-07-12] MEDS ORDERED: Requip 0.5 MG PO PRN (14:52)
[2025-07-12] MEDS: Klor Con PO SCH (15:33)
[2025-07-12] MEDS: Lasix 40 MG PO SCH (18:14)
[2025-07-12] MEDS: DIOVAN 80 MG PO SCH (18:14)
[2025-07-12] MEDS: HUMALOG SQ SCH (18:14)
[2025-07-12] MEDS: hydroDIURIL 25 MG PO SCH (18:15)
[2025-07-12] MEDS: SODIUM CHLORIDE 0.9% IV SCH (21:40)
[2025-07-12] MEDS: MERREM IV SCH (21:40)
[2025-07-12] MEDS: Lantus Insulin SQ SCH (21:41)
[2025-07-12] MEDS: NORCO 5/325 MG PO PRN (21:41)
[2025-07-12] MEDS: Lopressor 25MG Tab PO SCH (21:41)
[2025-07-13 06:15] VITALS: RESP 16; O2SAT 94
[2025-07-13 07:27] VITALS: PULSE 74; TEMP 98.3
[2025-07-13 07:47] VITALS: BP 111/55
[2025-07-13] MEDS: HUMALOG SQ SCH (08:43)
[2025-07-13] MEDS: Ecotrin 325 MG PO SCH (10:17)
[2025-07-13] MEDS ORDERED: HUMALOG SQ SCH (12:00)
--- NOTE | 2025-07-16 08:14 | OP ---
SURGERY DATE/TIME: 07/13/2025 [id number] PREOPERATIVE DIAGNOSES: 1) Chronic venous insufficiency ulceration with subsequent infection. 2) Noncompliance with medical regimen. 3) Superimposition of venous insufficiency ulcer infection with lower extremity cellulitis right lower extremity. POSTOPERATIVE DIAGNOSES: 1) Chronic venous insufficiency ulceration with subsequent infection. 2) Noncompliance with medical regimen. 3) Superimposition of venous insufficiency ulcer infection with lower extremity cellulitis right lower extremity. PROCEDURES: 1) Wound debridement with wide margins to the right lower extremity to subcutaneous tissue. 2) Wound debridement to level of muscle right heel. 3) Bilateral multilayer compression dressing application. SURGEON: Josh Pandey MD SINGLE CORNER CUTTER: MABEL Arenas ANESTHESIA: Monitored anesthesia care. HEMOSTASIS: Pressure dressing. ESTIMATED BLOOD LOSS: Approximately 10 mL. MATERIALS: 1000 mL of Bactisure. INDICATIONS FOR PROCEDURE: The patient is a very pleasant, 60-year-old male, very well known to my service for multiple recurrences of venous insufficiency ulceration. Patient is having a difficult time at this time due to financially being unable to afford his medications and has been somewhat noncompliant with his medical regimen, particularly in consideration of his diuretics as well as antibiotics. From that standpoint, this has led to an ESBL positive Proteus infection that has led to cellulitis to the right lower extremity and significant worsening of a wound. The patient has also not been able to pick up attendant his diuretics and take these and he is fluid overloaded. The patient sleeps in a recliner and is unable to elevate his legs for majority of the day. This has led to some deal of worsening as well as significant drainage coming from these venous insufficiency ulcers. In recent history, he has had some breakdown to the right heel with a wound that does, in clinic, appear to go to the subcutaneous tissue, however, on debridement today it was found that it did probe to the level of the muscle. The patient has been made aware of all risks, complications, and benefits of surgical intervention at this time. Prior to surgical intervention, a PICC line was placed and he is cited to present to the outpatient infusion center for twice daily meropenem infusions for somewhere in the ballpark of 14 to 21 days. Patient is aware hospitalization is potentially a requirement if there is worsening of the issues, however, patient has no systemic symptoms at this time and would like to try from the outpatient perspective. I am amenable to the plan until there is an elevation of any inflammatory or infectious processes. It is at this time we decided to proceed. DESCRIPTION OF PROCEDURE AND FINDINGS: Patient was brought to in the operating room and placed on the operating room table in the supine position. At this time, monitored anesthesia care was administered until the patient was adequately sedated. Once the patient was sedated, the right lower extremity was prepped and draped in the typical sterile fashion and lowered onto the surgical field. Attention was directed to the right leg wound where predebridement measurements were obtained. After utilizing a curette, 15 blade, and pick ups, rongeurs in order to debride the wound, the postoperative measurements to the right leg wound measured to be 13.5 x 9.0. From that standpoint, attention was directed to the 2 wounds, one to the heel and one to the styloid process of the fifth metatarsal. The measurement to the styloid process of the fifth metatarsal was 1.1 x 0.4 with a significantly heavy fibrotic base. Once debrided, remained within the subcutaneous tissue, and the wound on the plantar lateral aspect of the right heel, demonstrated a wound measuring 4.9 x 5.2 and did go to muscle postdebridement. Irrigation took place in the form of 1000 mL of Bactisure and then 3000 mL of sterile saline. The leg was cleansed and dried and a multilayer compression dressing consisting of iodine, Adaptic, 4 x 4, ABD, Kerlix, and Coban was applied with moderate compression. The same dressing was utilized to the left lower extremity as his venous insufficiency and drainage were significant at this aspect as well. However, no debridement was performed to the left lower extremity at this time. Patient was then reversed from anesthesia and returned to the postoperative anesthesia care unit with vital signs stable and vascular status intact. Patient handled the anesthesia as well as the procedure without significant complication. Postoperative orders as indicated in the patient's discharge chart.
== END 2025-07-13 12:00 | disposition home or self-care (01) ==
LOC: SDC 08:07 → MED SURG 14:05 → SDC 07-13 12:00
PROVIDERS: ATTEND Podiatrist Foot & Ankle Surgery
DX: L89.624 Pressure ulcer of left heel, stage 4 (principal); Z91.148 Patient's other noncompliance with medication regimen for other reason; L03.115 Cellulitis of right lower limb
CPT/HCPCS: 00400; 11042; 11043; 11045; 11046; 29581; 36415; 36573; 71045; 80053; 82947; 85025; 93005; A6260; G0378

== ENCOUNTER 2025-07-31 17:00 | Emergency (ER) | payer MEDICARE ==
[2025-07-31 17:13] VITALS: TEMP 97.7
--- NOTE | 2025-07-31 17:21 | ERPHSYRPT ---
- History of Present Illness Allergies/Adverse Reactions: clindamycin Allergy (Verified 07/31/25 17:07) Penicillins Allergy (Verified 07/31/25 17:07) Sulfa (Sulfonamide Antibiotics) Allergy (Verified 07/31/25 17:07) Home Medications: Insulin Glargine [Lantus Insulin] 66 unit SQ BID 10/18/23 [History] Insulin Lispro [Humalog] 14 unit SQ BREAKFAST 11/02/24 [History] Insulin Lispro [Humalog] 22 unit SQ LUNCH 11/02/24 [History] Insulin Lispro [Humalog] 26 unit SQ DINNER 11/02/24 [History] Furosemide [Lasix] 20 mg PO DAILY 07/11/25 [History] Gentamicin 0.1% Cream [Gentamicin Sulfate 0.1% Cream] 1 unit TOP DAILY PRN PRN 07/11/25 [History] Metoprolol Tartrate 25 mg PO BID 07/11/25 [History] Potassium Chloride 10 meq PO DAILY 07/11/25 [History] Ropinirole HCl 0.5 mg PO DAILY PRN PRN 07/11/25 [History] Valsartan/Hydrochlorothiazide [Valsartan-Hctz 320-25 mg Tab] 12.5 mg PO DAILY 07/11/25 [History] Hydrocodone/Acetaminophen [Hydrocodon-Acetaminophen 5-325] 1 tab PO Q4-6HPRN PRN 07/12/25 [History] Hx Tetanus, Diphtheria Vaccination/Date Given: No Hx Influenza Vaccination/Date Given: No Hx Pneumococcal Vaccination/Date Given: No Travel Risk - Emerging Infectious Disease Are you exhibiting symptoms associated with any current EIDs: No Symptoms: Diarrhea - Past Medical History Pertinent Past Medical History: Yes Neurological History: Peripheral Neuropathy ENT History: No Pertinent History Cardiac History: Angina, Arrhythmia, Deep Vein Thrombosis, Hypertension Respiratory History: No Pertinent History Endocrine Medical History: Diabetes Type II Musculoskeletal History: Osteoarthritis GI Medical History: GERD History: No Pertinent History Psycho-Social History: Depression Male Reproductive Disorders: No Pertinent History Other Medical History: HISTORY OF B LE WOUNDS, PARTIAL SEPTUS INVERTUS, RUPTURED L ROTATOR CUFF. ruptured varicose vein right thigh,anemia - Past Surgical History Past Surgical History: Yes Neuro Surgical History: No Pertinent History Cardiac: No Pertinent History Respiratory: No Pertinent History Gastrointestinal: No Pertinent History Genitourinary: No Pertinent History Musculoskeletal: No Pertinent History Male Surgical History: No Pertinent History Other Surgical History: PINWHEEL DRAIN IN BACK TO DRAIN FLUIDS_DONE BY [employer] MEZA 2021,right leg back surgery for veins,leg lower ankle area surgery-RT leg Significant Family History: cancer - Social History Smoking Status: Never smoker Drug Use: none - Social Determinants of Health Will the patient participate in the screening: Yes Do you worry about a steady place to live?: No In the past 12 months,have you had to go without utilities?: No Transportation Issues: No Has anyone in your support network made you feel unsafe?: No Have you or anyone in your house had to go w/o enough food: No - Nursing Vital Signs Nursing Vital Signs: Initial Vital Signs Temperature 97.7 F 07/31/25 17:08 Pulse Rate 91 H 07/31/25 17:08 Respiratory Rate 22 07/31/25 17:08 Blood Pressure 153/86 07/31/25 17:08 O2 Sat by Pulse Oximetry 99 07/31/25 17:08 Pain Scale Pain Intensity 0 - Physical Exam SpO2: 99 - Course Nursing assessment & vital signs reviewed: Yes EKG Interpreted by Me: RATE (85), Sinus Rhythm, NORMAL AXIS, NORMAL INTERVALS, NORMAL QRS - Progress Progress: improved - Departure Referrals: EVA ODELL FNP [Primary Care Provider, UNKNOWN] - Follow up/PCP as directed
--- NOTE | 2025-07-31 17:39 | ERPHSYRPT ---
- History of Present Illness Time Seen by Provider: 07/31/25 17:34 Source: patient Exam Limitations: no limitations Patient Subjective Stated Complaint: PT STATES HE WAS TOLD TO COME HERE FOR ABNORMAL LABS Triage Nursing Assessment: PT ARRIVES TO THE ER VIA PRIVATE VEHICLE. PT IS ABLE TO AMBULATE INTO THE ER USING BILATERAL CANES. PT IS ALERT AND ORIENTED X4, RESPIRATIONS ARE EASY AND REGULAR, PULSES EQUAL BILATERALLY. PT STATES THAT DR. KITCHEN OFFICE CALLED HIM AND TOLD HIM ONE OF HIS LABS WERE CRITICALLY LOW AND THAT HE NEEDED TO GO TO THE ER. PT STATES HE FEELS FINE. PT DOES HAVE BILATERAL LEG WOUNDS THAT HE FOLLOWS WITH OUT PATIENT WOUND CARE. PT ALSO HAS WOUNDS SCATTERED ON HIS BACK. PT HAS A PICC LINE IN THE LEFT UPPER ARM THAT IS BEING USED FOR ANTIBIOTIC TREATMENT OUTPATIENT. 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 Insurance Solicitor states that patient was on meropenem twice a day. They were monitoring his kidney function. There was a steady decline of his kidney function. Patient was sent to our ED for further evaluation and treatment. Patient's last urine creatinine was 5. Patient states he feels well denies pain. No nausea vomiting or diaphoresis. No chest pain or shortness of breath. Patient voices no other complaints or concerns at this time. Portions of this note were created with voice recognition technology. There may be grammatical, spelling, punctuation or sound alike errors Timing/Duration: today Severity: moderate Modifying Factors: Improves With: nothing Associated Symptoms: denies symptoms Allergies/Adverse Reactions: clindamycin Allergy (Verified 07/31/25 17:07) Penicillins Allergy (Verified 07/31/25 17:07) Sulfa (Sulfonamide Antibiotics) Allergy (Verified 07/31/25 17:07) Home Medications: Insulin Glargine [Lantus Insulin] 66 unit SQ BID 10/18/23 [History] Insulin Lispro [Humalog] 14 unit SQ BREAKFAST 11/02/24 [History] Insulin Lispro [Humalog] 22 unit SQ LUNCH 11/02/24 [History] Insulin Lispro [Humalog] 26 unit SQ DINNER 11/02/24 [History] Ropinirole HCl 0.5 mg PO HS 07/11/25 [History] Atorvastatin Calcium 20 mg PO DAILY 07/31/25 [History] Ergocalciferol (Vitamin D2) [Vitamin D2] 1 cap PO WEEKLY 07/31/25 [History] Torsemide 20 mg [Demadex 20 mg] 20 mg PO BID 07/31/25 [History] Hx Tetanus, Diphtheria Vaccination/Date Given: Yes Hx Influenza Vaccination/Date Given: No Hx Pneumococcal Vaccination/Date Given: No Immunizations Up to Date: Yes Travel Risk - International Travel Have you traveled outside of the country in past 3 weeks: No - Emerging Infectious Disease Are you exhibiting symptoms associated with any current EIDs: No Symptoms: Diarrhea - Review of Systems All Other Systems: Reviewed and Negative - Past Medical History Pertinent Past Medical History: Yes Neurological History: Peripheral Neuropathy ENT History: No Pertinent History Cardiac History: Angina, Arrhythmia, Deep Vein Thrombosis, Hypertension Respiratory History: No Pertinent History Endocrine Medical History: Diabetes Type II Musculoskeletal History: Osteoarthritis GI Medical History: GERD History: No Pertinent History Psycho-Social History: Depression Male Reproductive Disorders: No Pertinent History Other Medical History: HISTORY OF B LE WOUNDS, PARTIAL SEPTUS INVERTUS, RUPTURED L ROTATOR CUFF. ruptured varicose vein right thigh,anemia - Past Surgical History Past Surgical History: Yes Neuro Surgical History: No Pertinent History Cardiac: No Pertinent History Respiratory: No Pertinent History Gastrointestinal: No Pertinent History Genitourinary: No Pertinent History Musculoskeletal: No Pertinent History Male Surgical History: No Pertinent History Other Surgical History: PINWHEEL DRAIN IN BACK TO DRAIN FLUIDS_DONE BY [employer] MEZA 2021,right leg back surgery for veins,leg lower ankle area surgery-RT leg Significant Family History: cancer - Social History Smoking Status: Never smoker Exposure to second hand smoke: No Drug Use: none - Social Determinants of Health Will the patient participate in the screening: Yes Do you worry about a steady place to live?: No Do you have any problems with any of the following?: No known problems In the past 12 months,have you had to go without utilities?: No Transportation Issues: No Has anyone in your support network made you feel unsafe?: No Have you or anyone in your house had to go w/o enough food: No - Nursing Vital Signs Nursing Vital Signs: Initial Vital Signs Temperature 97.7 F 07/31/25 17:08 Pulse Rate 91 H 07/31/25 17:08 Respiratory Rate 22 07/31/25 17:08 Blood Pressure 153/86 07/31/25 17:08 O2 Sat by Pulse Oximetry 99 07/31/25 17:08 Pain Scale Pain Intensity 0 - Physical Exam General Appearance: no apparent distress, alert, other (Patient appears pale) Eye Exam: PERRL/EOMI, eyes nml inspection Ears, Nose, Throat Exam: normal ENT inspection, moist mucous membranes Neck Exam: normal inspection, full range of motion Respiratory Exam: normal breath sounds, lungs clear, No respiratory distress Cardiovascular Exam: regular rate/rhythm, normal heart sounds, normal peripheral pulses Gastrointestinal/Abdomen Exam: soft, normal bowel sounds, No tenderness, No mass Back Exam: normal inspection, normal range of motion, No CVA tenderness, No vertebral tenderness Extremity Exam: normal inspection, normal range of motion, pelvis stable, other (Lower extremities are wrapped) Neurologic Exam: alert, oriented x 3, cooperative, normal mood/affect, sensation nml, No motor deficits Skin Exam: normal color, warm, dry, No rash Lymphatic Exam: No adenopathy SpO2 Interpretation: normal SpO2: 99 O2 Delivery: Room Air - Course Nursing assessment & vital signs reviewed: Yes - CT Exams Abdomen/Pelvis CT Interpretation: Tele-radiologist Report (CT abdomen pelvis reveals a new 1.5 cm patchy right lower lobe airspace disease bilateral UPJ stones with mild bilateral hydronephrosis. Right measuring 1.5 cm. Left measuring 9 mm. Nephrolithiasis) Ordered Tests: Active Orders 24 hr Category Date Time Status BLOOD CULTURE Stat Lab 07/31/25 22:33 Received HEMOGLOBIN AND HEMATOCRIT Stat Lab 08/01/25 00:01 Completed Medication Summary Discontinued Medications Generic Name Dose Route Start Last Admin Trade Name Freq PRN Reason Stop Dose Admin Sodium Chloride 500 mls @ 50 mls/hr 07/31/25 19:30 07/31/25 19:23 Sodium Chloride 0.9% 500 Ml IV 08/30/25 19:29 50 mls/hr .Q10H GERRI Administration Sodium Chloride Confirm 07/31/25 19:22 Sodium Chloride 0.9% 500 Ml Administered 07/31/25 19:23 Dose 500 mls @ ud IV .STK-MED ONE Lab/Rad Data: Laboratory Result Diagrams 08/01/25 00:01 07/31/25 17:40 Laboratory Results 08/01/25 07/31/25 07/31/25 Range/Units 00:01 18:14 18:14 WBC (4.23-9.07) x10^3/uL RBC (4.63-6.08) x10^6/uL Hgb 8.0 L D (13.7-17.5) g/dL Hct 26.6 L (40.1-51.0) % MCV (79.0-92.2) fL MCH (25.7-32.2) pg MCHC (32.3-36.5) g/dL RDW (11.6-14.4) % Plt Count (163-337) x10^3/uL MPV (9.4-12.4) fL Gran % (34.0-67.9) % Immature Gran % (Auto) (0.001-0.429) % Nucleat RBC Rel Count (0.00-0.2) % Eos # (Auto) (0.04-0.54) x10^3/uL Immature Gran # (Auto) (0.001-0.031) x10^3u/L Absolute Lymphs (auto) (1.32-3.57) x10^3/uL Absolute Monos (auto) (0.30-0.82) x10^3/uL Absolute Nucleated RBC (0.00-0.012) x10^3u/L Lymphocytes % (21.8-53.1) % Monocytes % (5.3-12.2) % Eosinophils % (0.8-7.0) % Basophils % (0.2-1.2) % Absolute Granulocytes (1.78-5.38) x10^3/uL Basophils # (0.01-0.08) x10^3/uL Sodium (135-145) mmol/L Potassium (3.5-5.1) mmol/L Chloride (98-107) mmol/L Carbon Dioxide (22-30) mmol/L Anion Gap (5-15) MEQ/L BUN (9-20) mg/dL Creatinine (0.66-1.25) mg/dL Estimated GFR ML/MIN Glucose (74-106) mg/dL Calcium (8.4-10.2) mg/dL Total Bilirubin (0.2-1.3) mg/dL AST (17-59) U/L ALT (0-50) U/L Alkaline Phosphatase (38-126) U/L Serum Total Protein (6.3-8.2) g/dL Albumin (3.5-5.0) g/dL Slides for Path Review ABO Group A Rh Factor POSITIVE Antibody Screen NEGATIVE (NEGATIVE) Crossmatch COMPATIBLE COMPATIBLE (COMPATIBLE) 07/31/25 07/31/25 Range/Units 17:40 17:40 WBC 7.7 (4.23-9.07) x10^3/uL RBC 3.28 L (4.63-6.08) x10^6/uL Hgb 6.5 L* (13.7-17.5) g/dL Hct 22.1 L (40.1-51.0) % MCV 67.4 L (79.0-92.2) fL MCH 19.8 L (25.7-32.2) pg MCHC 29.4 L (32.3-36.5) g/dL RDW 25.7 H (11.6-14.4) % Plt Count 350 H (163-337) x10^3/uL MPV 9.6 (9.4-12.4) fL Gran % 76.4 H (34.0-67.9) % Immature Gran % (Auto) 0.3 (0.001-0.429) % Nucleat RBC Rel Count 0.0 (0.00-0.2) % Eos # (Auto) 0.55 H (0.04-0.54) x10^3/uL Immature Gran # (Auto) 0.02 (0.001-0.031) x10^3u/L Absolute Lymphs (auto) 0.58 L (1.32-3.57) x10^3/uL Absolute Monos (auto) 0.64 (0.30-0.82) x10^3/uL Absolute Nucleated RBC 0.00 (0.00-0.012) x10^3u/L Lymphocytes % 7.5 L (21.8-53.1) % Monocytes % 8.3 (5.3-12.2) % Eosinophils % 7.1 H (0.8-7.0) % Basophils % 0.4 (0.2-1.2) % Absolute Granulocytes 5.89 H (1.78-5.38) x10^3/uL Basophils # 0.03 (0.01-0.08) x10^3/uL Sodium 137 (135-145) mmol/L Potassium 3.5 D (3.5-5.1) mmol/L Chloride 107 (98-107) mmol/L Carbon Dioxide 17 L (22-30) mmol/L Anion Gap 18.1 H (5-15) MEQ/L BUN 59 H (9-20) mg/dL Creatinine 8.65 H (0.66-1.25) mg/dL Estimated GFR 6.4 ML/MIN Glucose 147 H (74-106) mg/dL Calcium 7.8 L D (8.4-10.2) mg/dL Total Bilirubin 0.10 L (0.2-1.3) mg/dL AST 13 L (17-59) U/L ALT 8 (0-50) U/L Alkaline Phosphatase 99 (38-126) U/L Serum Total Protein 6.6 (6.3-8.2) g/dL Albumin 2.9 L (3.5-5.0) g/dL Slides for Path Review YES ABO Group Rh Factor Antibody Screen (NEGATIVE) Crossmatch (COMPATIBLE) - Progress Progress: improved Progress Note: Case discussed with hospitalist at [facility] Dr. 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 Insurance Solicitor states that patient was on meropenem twice a day. They were monitoring his kidney function. There was a steady decline of his kidney function. Physical exam patient is pale. Laboratory workup reveals a pancytopenia with a microcytic anemia of 6.5. Patient has acute renal failure with a GFR 6 patient states he is unable to produce urine. CT scan reveals new 1.5 cm patchy right lower lobe airspace disease. Also 1.5 right and 9 mm left UPJ stones with mild bilateral hydronephrosis. Additional bilateral nephrolithiasis. Small gallstone and fatty liver. Patient received 2 units PRBC for the profound anemia. Patient will require higher level of care. Patient will be transferred to [facility] for further evaluation and treatment of the acute renal failure. Plan of care discussed with patient. He agrees to transfer to [facility] for further evaluation and treatment. Portions of this note were created with voice recognition technology. There may be grammatical, spelling, punctuation or sound alike errors History obtained from patient. Differential diagnosis includes obstructive uropathy, diabetic nephropathy, glomerulonephritis, acute tubular necrosis Complexity of problems addressed is moderate acute complicated. No critical care time. Complexity of data reviewed and analyzed as extensive. Test ordered test reviewed results analyzed and correlated clinically with history and physical exam. Management discussed with Dr. Zimmer hospitalist at [facility]. Risk of complication and or risk of morbidity/mortality of patient management is high. Patient requires hospitalization/transfer to higher level of care. Vital stable. Time spent to transfer patient is approximately 20 minutes. Plan of care established for shared decision making. No social determinants of health present to impede follow-up. Portions of this note were created with voice recognition technology. There may be grammatical, spelling, punctuation or sound alike errors 07/31/25 22:28 Dr. Zimmer was updated on the CT abdomen pelvis findings including the 1.5 cm patchy right lower lobe airspace disease. Patient has no physical exam findings consistent with pneumonia. No hypoxia no shortness of breath no tachypnea no abnormal lung sounds. He is aware of patient's bilateral UPJ stones with hydronephrosis. Dr. Zimmer was updated no change in plan at this point. 07/31/25 22:42 Counseled pt/family regarding: lab results, diagnosis, rad results - Departure Departure Disposition: Transfer Clinical Impression: Right lower lobe airspace disease, Bladder stone, Hydronephrosis, Bilateral UPJ stones with mild bilateral, Nephrolithiasis, Cholelithiasis, Fatty liver, Acute renal failure, Microcytic anemia, Metabolic acidosis Condition: Stable Critical Care Time: No Referrals: EVA ODELL FNP [Primary Care Provider, UNKNOWN] - Follow up/PCP as directed
[2025-07-31 17:49] LABS: BASOPHIL % 0.4 % (0.2-1.2); Basophil (Absolute #) 0.03 x10^3/uL (0.01-0.08); Eosinophil (Absolute #) 0.55 x10^3/uL (0.04-0.54); Hematocrit 22.1 % (40.1-51.0); IMMATURE GRAN # 0.02 x10^3u/L (0.001-0.031); IMMATURE GRAN % 0.3 % (0.001-0.429); Lymphocyte (Absolute #) 0.58 x10^3/uL (1.32-3.57); Mean Corpuscular Hemoglobin 19.8 pg (25.7-32.2); Mean Corpuscular Hgb Concent. 29.4 g/dL (32.3-36.5); Monocyte (Absolute #) 0.64 x10^3/uL (0.30-0.82); NUCLEATED RBC # 0.00 x10^3u/L (0.00-0.012); NUCLEATED RBC % 0.0 % (0.00-0.2); Platelet Count 350 x10^3/uL (163-337); Red Blood Count 3.28 x10^6/uL (4.63-6.08); White Blood Count 7.7 x10^3/uL (4.23-9.07)
[2025-07-31 17:54] LABS: Hemoglobin 6.5 g/dL (13.7-17.5)
[2025-07-31 18:02] LABS: Creatinine 1 8.65 mg/dL (0.66-1.25); EST GLOMERULAR FILTRATION RATE 6.4 ML/MIN; Glucose 147.0 mg/dL (74-106); SGOT/AST 13.0 U/L (17-59); SGPT/ALT 8.0 U/L (0-50); Total Protein 6.6 g/dL (6.3-8.2)
[2025-07-31 18:08] LABS: Carbon Dioxide 17.0 mmol/L (22-30)
[2025-07-31 18:10] LABS: Calcium 7.8 mg/dL (8.4-10.2); Potassium 3.5 mmol/L (3.5-5.1)
[2025-07-31 19:09] LABS: ABO TYPING A; RH TYPING POSITIVE
[2025-07-31 19:13] LABS: CROSS MATCH (PRBC) COMPATIBLE (COMPATIBLE)
[2025-07-31 19:15] LABS: CROSS MATCH (PRBC) COMPATIBLE (COMPATIBLE)
[2025-07-31 20:00] LABS: Slide Review 1 YES
[2025-08-01 00:09] VITALS: BP 152/72; PULSE 81; RESP 13
[2025-08-01 00:50] LABS: Hematocrit 26.6 % (40.1-51.0)
[2025-08-01 00:51] LABS: Hemoglobin 8.0 g/dL (13.7-17.5)
--- NOTE | 2025-08-01 08:53 | XRAY ---
Indication: Kidney failure. Multiple contiguous axial images obtained through the abdomen and pelvis without contrast. Comparison: May 29, 2022 Lung bases demonstrates new 1.5 cm patchy right lower lobe airspace opacity. No consolidation or effusion. Heart not enlarged. Noncontrasted stomach and bowel loops appear nonobstructed. Normal appendix. Again mild fatty liver. Gallbladder is now mildly distended again with tiny gallstones/gravel. No abnormal biliary distention. No free fluid/air. Again multiple bilateral renal calculi, again largest right lower pole measuring 1.6 x 1.8 cm. New 1.5 cm right UPJ and 0.9 cm left UPJ calculi, both producing mild/moderate hydronephrosis and mild renal edema. No perinephric fluid. Stable 2 cm left mid renal cyst. Urinary bladder is empty with 2 new 3-4 mm intraluminal calculi. Remaining liver, pancreas, and spleen are unremarkable for noncontrast exam. Again minimal scattered aortoiliac calcifications without AAA. Osseous structures intact again with osteopenia and mild degenerative changes throughout spine. Impression: 1. Again multiple bilateral renal calculi. New bilateral UPJ calculi producing obstructive uropathy as detailed. Also 2 new urinary bladder microcalculi. 2. New small patchy right lower lobe airspace disease. Correlate clinically. 3. Distended gallbladder again with tiny gallstones/gravel. Sonogram may yield further information if there is clinical concern. 4. Chronic findings including fatty liver, left renal cyst, arteriosclerotic disease, and chronic bony findings.
[2025-08-01 21:24] VITALS: O2SAT 99
== END 2025-08-01 00:30 | disposition short-term general hospital (02) ==
LOC: ED 17:00
DX: N17.9 Acute kidney failure, unspecified (principal); N13.2 Hydronephrosis with renal and ureteral calculous obstruction; N21.0 Calculus in bladder; R91.8 Other nonspecific abnormal finding of lung field; K80.20 Calculus of gallbladder without cholecystitis without obstruction; K76.0 Fatty (change of) liver, not elsewhere classified; D50.9 Iron deficiency anemia, unspecified; E87.20 Acidosis, unspecified; I10 Essential (primary) hypertension; E11.42 Type 2 diabetes mellitus with diabetic polyneuropathy; Z79.4 Long term (current) use of insulin; Z79.899 Other long term (current) drug therapy

== ENCOUNTER 2025-08-07 10:00 | Emergency (ER) | payer MEDICARE ==
[2025-08-07 10:18] VITALS: TEMP 97.6
--- NOTE | 2025-08-07 10:20 | ERPHSYRPT ---
- History of Present Illness Time Seen by Provider: 08/07/25 10:05 Source: patient Physician History: This is a 60-year-old male whose had chronic bilateral lower leg lymphedema and chronic leg wounds which have been under the care of a home health nurse who sent the patient today because she felt like the wounds are not improving. Apparently he was seen at [facility] last night and discharged from the ER. He has been under the care he states of Dr. Moreno for chronic wound care. He has no current fever or chills. No nausea or vomiting. No chest pain, shortness of breath. No abdominal pain. Patient has chronic leg pain which is not new. Patient states last night when he got home he tried to urinate but urinated on himself and tried to clean it up and then exacerbate abated his pain. According to EMS and speaking to home health nursing they feel that patient may need placement which patient is amenable to Allergies/Adverse Reactions: clindamycin Allergy (Verified 07/31/25 17:07) Penicillins Allergy (Verified 07/31/25 17:07) Sulfa (Sulfonamide Antibiotics) Allergy (Verified 07/31/25 17:07) Home Medications: Insulin Glargine [Lantus Insulin] 66 unit SQ BID 10/18/23 [History] Insulin Lispro [Humalog] 14 unit SQ BREAKFAST 11/02/24 [History] Insulin Lispro [Humalog] 22 unit SQ LUNCH 11/02/24 [History] Insulin Lispro [Humalog] 26 unit SQ DINNER 11/02/24 [History] Ropinirole HCl 0.5 mg PO HS 07/11/25 [History] Atorvastatin Calcium 20 mg PO DAILY 07/31/25 [History] Ergocalciferol (Vitamin D2) [Vitamin D2] 1 cap PO WEEKLY 07/31/25 [History] Torsemide 20 mg [Demadex 20 mg] 20 mg PO BID 07/31/25 [History] Ferrous Sulfate, Dried [Iron] 159 mg PO DAILY 08/07/25 [History] Tamsulosin HCl 0.4 mg PO DAILY 08/07/25 [History] Hx Tetanus, Diphtheria Vaccination/Date Given: Yes Hx Influenza Vaccination/Date Given: No Hx Pneumococcal Vaccination/Date Given: No Travel Risk - Emerging Infectious Disease Are you exhibiting symptoms associated with any current EIDs: No Symptoms: Diarrhea - Review of Systems All Other Systems: Reviewed and Negative (As per HPI otherwise negative) - Past Medical History Pertinent Past Medical History: Yes Neurological History: Peripheral Neuropathy ENT History: No Pertinent History Cardiac History: Angina, Arrhythmia, Deep Vein Thrombosis, Hypertension Respiratory History: No Pertinent History Endocrine Medical History: Diabetes Type II Musculoskeletal History: Osteoarthritis GI Medical History: GERD History: No Pertinent History Psycho-Social History: Depression Male Reproductive Disorders: No Pertinent History Other Medical History: HISTORY OF B LE WOUNDS, PARTIAL SEPTUS INVERTUS, RUPTURED L ROTATOR CUFF. ruptured varicose vein right thigh,anemia - Past Surgical History Past Surgical History: Yes Neuro Surgical History: No Pertinent History Cardiac: No Pertinent History Respiratory: No Pertinent History Gastrointestinal: No Pertinent History Genitourinary: No Pertinent History Musculoskeletal: No Pertinent History Male Surgical History: No Pertinent History Other Surgical History: PINWHEEL DRAIN IN BACK TO DRAIN FLUIDS_DONE BY [employer] MEZA 2021,right leg back surgery for veins,leg lower ankle area surgery-RT leg Significant Family History: cancer - Social History Smoking Status: Never smoker Exposure to second hand smoke: No Drug Use: none - Social Determinants of Health Will the patient participate in the screening: Yes Do you worry about a steady place to live?: No In the past 12 months,have you had to go without utilities?: No Transportation Issues: No Has anyone in your support network made you feel unsafe?: No Have you or anyone in your house had to go w/o enough food: No - Nursing Vital Signs Nursing Vital Signs: Initial Vital Signs Temperature 97.6 F 08/07/25 10:02 Pulse Rate 94 H 08/07/25 10:02 Respiratory Rate 18 08/07/25 10:02 Blood Pressure 133/56 08/07/25 10:02 O2 Sat by Pulse Oximetry 96 08/07/25 10:02 Pain Scale Pain Intensity 0 - Physical Exam General Appearance: no apparent distress, alert Eye Exam: PERRL/EOMI, eyes nml inspection Ears, Nose, Throat Exam: normal ENT inspection, TMs normal, pharynx normal, moist mucous membranes Neck Exam: normal inspection, non-tender, supple, full range of motion Respiratory Exam: normal breath sounds, lungs clear, No respiratory distress Cardiovascular Exam: regular rate/rhythm, normal heart sounds, normal peripheral pulses Gastrointestinal/Abdomen Exam: soft, normal bowel sounds, No tenderness, No mass Back Exam: normal inspection, normal range of motion, No CVA tenderness, No vertebral tenderness Extremity Exam: normal inspection, normal range of motion, pelvis stable Neurologic Exam: alert, oriented x 3, cooperative, normal mood/affect, nml cerebellar function, No motor deficits Skin Exam: other (Patient has chronic lymphedema and chronic appearing wounds which appear to be healing. There is some slight erythema on the right leg which is circumferential. No drainage or odor. Less than 3-second capillary refill.), No rash Lymphatic Exam: No adenopathy Ordered Tests: Active Orders 24 hr Category Date Time Status LOWER LEG Stat Exams 08/07/25 10:22 Completed LOWER LEG Stat Exams 08/07/25 10:22 Completed BLOOD CULTURE Stat Lab 08/07/25 10:20 Ordered CBC W DIFF Stat Lab 08/07/25 11:04 Completed CMP Stat Lab 08/07/25 11:04 Completed Lactic Acid Stat Lab 08/07/25 11:01 Completed PT INR [PROTIME WITH INR] Stat Lab 08/07/25 11:04 Completed PTT Stat Lab 08/07/25 11:04 Completed Lab/Rad Data: Laboratory Result Diagrams 08/07/25 11:04 08/07/25 11:04 Laboratory Results 08/07/25 08/07/25 08/07/25 Range/Units 11:04 11:04 11:04 WBC 7.3 (4.23-9.07) x10^3/uL RBC 3.83 L (4.63-6.08) x10^6/uL Hgb 8.2 L (13.7-17.5) g/dL Hct 27.8 L (40.1-51.0) % MCV 72.6 L (79.0-92.2) fL MCH 21.4 L (25.7-32.2) pg MCHC 29.5 L (32.3-36.5) g/dL RDW 27.7 H (11.6-14.4) % Plt Count 301 (163-337) x10^3/uL MPV 9.1 L (9.4-12.4) fL Gran % 81.8 H (34.0-67.9) % Immature Gran % (Auto) 1.0 H (0.001-0.429) % Nucleat RBC Rel Count 0.0 (0.00-0.2) % Eos # (Auto) 0.38 (0.04-0.54) x10^3/uL Immature Gran # (Auto) 0.07 H (0.001-0.031) x10^3u/L Absolute Lymphs (auto) 0.33 L (1.32-3.57) x10^3/uL Absolute Monos (auto) 0.53 (0.30-0.82) x10^3/uL Absolute Nucleated RBC 0.00 (0.00-0.012) x10^3u/L Lymphocytes % 4.5 L (21.8-53.1) % Monocytes % 7.2 (5.3-12.2) % Eosinophils % 5.2 (0.8-7.0) % Basophils % 0.3 (0.2-1.2) % Absolute Granulocytes 6.00 H (1.78-5.38) x10^3/uL Basophils # 0.02 (0.01-0.08) x10^3/uL PT 11.3 (9.4-12.5) SECONDS INR 1.01 (0.8-3.0) APTT 30.1 (25.1-36.5) SECONDS Sodium 144 (135-145) mmol/L Potassium 4.3 (3.5-5.1) mmol/L Chloride 114 H (98-107) mmol/L Carbon Dioxide 22 (22-30) mmol/L Anion Gap 12.4 (5-15) MEQ/L BUN 22 H (9-20) mg/dL Creatinine 1.22 (0.66-1.25) mg/dL Estimated GFR 67.5 ML/MIN Glucose 144 H (74-106) mg/dL Lactic Acid (0.4-2.0) Calcium 8.7 (8.4-10.2) mg/dL Total Bilirubin 0.40 (0.2-1.3) mg/dL AST 15 L (17-59) U/L ALT 10 (0-50) U/L Alkaline Phosphatase 101 (38-126) U/L Serum Total Protein 7.0 (6.3-8.2) g/dL Albumin 3.1 L (3.5-5.0) g/dL Slides for Path Review YES 08/07/25 Range/Units 11:01 WBC (4.23-9.07) x10^3/uL RBC (4.63-6.08) x10^6/uL Hgb (13.7-17.5) g/dL Hct (40.1-51.0) % MCV (79.0-92.2) fL MCH (25.7-32.2) pg MCHC (32.3-36.5) g/dL RDW (11.6-14.4) % Plt Count (163-337) x10^3/uL MPV (9.4-12.4) fL Gran % (34.0-67.9) % Immature Gran % (Auto) (0.001-0.429) % Nucleat RBC Rel Count (0.00-0.2) % Eos # (Auto) (0.04-0.54) x10^3/uL Immature Gran # (Auto) (0.001-0.031) x10^3u/L Absolute Lymphs (auto) (1.32-3.57) x10^3/uL Absolute Monos (auto) (0.30-0.82) x10^3/uL Absolute Nucleated RBC (0.00-0.012) x10^3u/L Lymphocytes % (21.8-53.1) % Monocytes % (5.3-12.2) % Eosinophils % (0.8-7.0) % Basophils % (0.2-1.2) % Absolute Granulocytes (1.78-5.38) x10^3/uL Basophils # (0.01-0.08) x10^3/uL PT (9.4-12.5) SECONDS INR (0.8-3.0) APTT (25.1-36.5) SECONDS Sodium (135-145) mmol/L Potassium (3.5-5.1) mmol/L Chloride (98-107) mmol/L Carbon Dioxide (22-30) mmol/L Anion Gap (5-15) MEQ/L BUN (9-20) mg/dL Creatinine (0.66-1.25) mg/dL Estimated GFR ML/MIN Glucose (74-106) mg/dL Lactic Acid 0.7 (0.4-2.0) Calcium (8.4-10.2) mg/dL Total Bilirubin (0.2-1.3) mg/dL AST (17-59) U/L ALT (0-50) U/L Alkaline Phosphatase (38-126) U/L Serum Total Protein (6.3-8.2) g/dL Albumin (3.5-5.0) g/dL Slides for Path Review - Progress Progress Note: 08/07/25 11:[address] Moreno who states patient was sent to [facility] because he was in acute renal failure with a relatively elevated creatinine which was 8.[address] scan is noted as below. Patient related nothing of these events to myself and stated he was only seen in the emergency department and discharged. This does not seem to correlate with the patient's findings. Will await laboratory studies, but patient will likely need to be transferred. Procedures: [id number] CT/ABDOMEN AND PELVIS W/0 CONTRAS Indication: Kidney failure. Multiple contiguous axial images obtained through the abdomen and pelvis without contrast. Comparison: May 29, 2022 Lung bases demonstrates new 1.5 cm patchy right lower lobe airspace opacity. No consolidation or effusion. Heart not enlarged. Noncontrasted stomach and bowel loops appear nonobstructed. Normal appendix. Again mild fatty liver. Gallbladder is now mildly distended again with tiny gallstones/gravel. No abnormal biliary distention. No free fluid/air. Again multiple bilateral renal calculi, again largest right lower pole measuring 1.6 x 1.8 cm. New 1.5 cm right UPJ and 0.9 cm left UPJ calculi, both producing mild/moderate hydronephrosis and mild renal edema. No perinephric fluid. Stable 2 cm left mid renal cyst. Urinary bladder is empty with 2 new 3-4 mm intraluminal calculi. Remaining liver, pancreas, and spleen are unremarkable for noncontrast exam. Again minimal scattered aortoiliac calcifications without AAA. Osseous structures intact again with osteopenia and mild degenerative changes throughout spine. Impression: 1. Again multiple bilateral renal calculi. New bilateral UPJ calculi producing obstructive uropathy as detailed. Also 2 new urinary bladder microcalculi. 2. New small patchy right lower lobe airspace disease. Correlate clinically. 3. Distended gallbladder again with tiny gallstones/gravel. Sonogram may yield further information if there is clinical concern. 4. Chronic findings including fatty liver, left renal cyst, arteriosclerotic disease, and chronic bony findings 08/07/25 13:07 Laboratories appear to be normalized today. He now does admit that he was admitted because of kidney failure. He states he came here because they warrant "wrapping his legs right". We had unfortunate cut off his dressings to look at his legs which his home health nurse to just put on for wound care. He has a normal white count. He has no obvious foul odor. There is chronic weeping. I have spoken with Dr. Josh Lombardo who knows him well and stated in the past he was IV antibiotics for [place] he but agrees to hold antibiotics at this time as it appears that this is just the chronic course of his disease. He certainly is at risk for further infections and his course and likely has very end-stage his condition. I have offered him admission which he refuses I have offered him the opportunity to be placed in a detention facility type setting which he refuses. Patient wants to go home. I will hold antibiotics at this time. Dr. Moreno staff will come and rewrap his wounds and schedule him for close follow-up so he can be reevaluated. I do agree that patient at this time does not appear to have any acute infection although this could certainly change in the near future and he will need to be closely evaluated and re- evaluated. 1:15 PM: Dr. Josh Lombardo comes to the emergency department to evaluate patient. He feels that this wound actually looks better than normal for this patient. Agrees not to start antibiotics and we will follow him closely as outpatient. The patient's condition was discussed with themselves and/or family members in great detail. Precautions are given and need to return or call 911 immediately for any changes or worsening are discussed. Instructions on patient's condition and noting that conditions can change or worsen and that diagnosis are presumptive and can evolve are discussed. All questions were answered. All concerns addressed at this time 08/07/25 13:15 08/07/25 13:20 - Departure Departure Disposition: Home Clinical Impression: Lymphedema, Chronic edema Chronic ulcer of leg Qualifiers: Laterality: unspecified laterality Non-pressure ulcer stage: unspecified non- pressure ulcer stage Qualified Code(s): L97.909 - Non-pressure chronic ulcer of unspecified part of unspecified lower leg with unspecified severity Condition: Stable Critical Care Time: No Referrals: EVA ODELL FNP [Primary Care Provider, UNKNOWN] - Follow up/PCP as directed JOSH LOMBARDO DPM [ACTIVE STAFF, PODIATRY] - Follow up/PCP as directed Instructions: Wound Care (DC), Lymphedema
[2025-08-07 11:11] LABS: BASOPHIL % 0.3 % (0.2-1.2); Basophil (Absolute #) 0.02 x10^3/uL (0.01-0.08); Eosinophil (Absolute #) 0.38 x10^3/uL (0.04-0.54); Hematocrit 27.8 % (40.1-51.0); Hemoglobin 8.2 g/dL (13.7-17.5); IMMATURE GRAN # 0.07 x10^3u/L (0.001-0.031); IMMATURE GRAN % 1.0 % (0.001-0.429); Lymphocyte (Absolute #) 0.33 x10^3/uL (1.32-3.57); Mean Corpuscular Hemoglobin 21.4 pg (25.7-32.2); Mean Corpuscular Hgb Concent. 29.5 g/dL (32.3-36.5); Monocyte (Absolute #) 0.53 x10^3/uL (0.30-0.82); NUCLEATED RBC # 0.00 x10^3u/L (0.00-0.012); NUCLEATED RBC % 0.0 % (0.00-0.2); Platelet Count 301 x10^3/uL (163-337); Red Blood Count 3.83 x10^6/uL (4.63-6.08); White Blood Count 7.3 x10^3/uL (4.23-9.07)
[2025-08-07 11:29] LABS: INR 1.01 (0.8-3.0); PROTIME 11.3 SECONDS (9.4-12.5); PTT 30.1 SECONDS (25.1-36.5)
[2025-08-07 11:30] LABS: Calcium 8.7 mg/dL (8.4-10.2); Carbon Dioxide 22.0 mmol/L (22-30); Creatinine 1 1.22 mg/dL (0.66-1.25); EST GLOMERULAR FILTRATION RATE 67.5 ML/MIN; Glucose 144.0 mg/dL (74-106); Potassium 4.3 mmol/L (3.5-5.1); SGOT/AST 15.0 U/L (17-59); SGPT/ALT 10.0 U/L (0-50); Total Protein 7.0 g/dL (6.3-8.2)
--- NOTE | 2025-08-07 11:34 | XRAY ---
Indication: Fracture. Comparison: None 2 view left tibia/fibula demonstrates osteopenia, moderate/advanced tricompartmental knee degenerative arthropathy, tiny posterior/small heel spurs, mild scattered vascular calcifications, and diffuse soft tissue swelling/edema. No other bony, articular, or soft tissue abnormalities.
--- NOTE | 2025-08-07 11:34 | XRAY ---
Indication: Fracture. Comparison: None 2 view right lower leg demonstrates osteopenia, mild/moderate tricompartmental knee degenerative arthropathy, 6 mm proximal tibial bone island, and diffuse soft tissue swelling/edema. No other bony, articular, or soft tissue abnormalities.
[2025-08-07 12:31] LABS: Slide Review 1 YES
[2025-08-07 13:12] VITALS: O2SAT 95
[2025-08-07 13:48] VITALS: PULSE 77; RESP 19
--- NOTE | 2025-08-07 13:49 | PCM.CONS ---
Podiatry HPI - Consult Date of Consultation Date: 08/07/25 Reason for Consult: chronic bilateral lower extremity edema with ulceration Consulting Provider: IMTIAZ LOMBARDO DPM - [facility] History of Present Illness: Jeff is a 60-year-old male with chronic bilateral lower extremity lymphedema and nonhealing lower leg wounds, managed under my care with home health wound care support. He was sent to the emergency department by his home health nurse due to perceived lack of improvement. The patient was recently hospitalized at [facility] for acute renal failure with a creatinine of 8.65 on 07/31/25 and has since been discharged. On evaluation today, he is afebrile, hemodynamically stable, and non-toxic appearing, with no systemic signs of infection (no fever, chills, nausea, vomiting, or shortness of breath). Examination reveals chronic lymphedema with healing wounds, mild circumferential erythema of the right lower leg, no drainage or odor, and capillary refill under 3 seconds. Laboratory findings show normalized renal function (Cr 1.22), no leukocytosis (WBC 7.3), and no lactic acidosis. CT abdomen/pelvis demonstrates chronic bilateral renal calculi with mild hydronephrosis, gallstones, and fatty liverfindings unrelated to his lower extremity wounds- which were addressed at his recent stay at [facility]. Given his chronic wound appearance, lack of acute infection, and stable systemic status, antibiotics are withheld at this time. Wounds were rewrapped, and he will continue local wound care and compression under close outpatient follow-up. The patient remains appropriate for outpatient management with continued close monitoring. Medications & Allergies Home Medications: Home Medication List Insulin Glargine [Lantus Insulin] 66 unit SQ BID 10/18/23 [History Confirmed 08/07/25] Insulin Lispro [Humalog] 14 unit SQ BREAKFAST 11/02/24 [History Confirmed 08/07/25] Insulin Lispro [Humalog] 22 unit SQ LUNCH 11/02/24 [History Confirmed 08/07/25] Insulin Lispro [Humalog] 26 unit SQ DINNER 11/02/24 [History Confirmed 08/07/25] Ropinirole HCl 0.5 mg PO HS 07/11/25 [History Confirmed 08/07/25] Atorvastatin Calcium 20 mg PO DAILY 07/31/25 [History Confirmed 08/07/25] Ergocalciferol (Vitamin D2) [Vitamin D2] 1 cap PO WEEKLY 07/31/25 [History Confirmed 08/07/25] Torsemide 20 mg [Demadex 20 mg] 20 mg PO BID 07/31/25 [History Confirmed 08/07/25] Ferrous Sulfate, Dried [Iron] 159 mg PO DAILY 08/07/25 [History Confirmed 08/07/25] Tamsulosin HCl 0.4 mg PO DAILY 08/07/25 [History Confirmed 08/07/25] Allergies/Adverse Reactions: Allergies Allergy/AdvReac Type Severity Reaction Status Date / Time clindamycin Allergy Verified 07/31/25 17:07 Penicillins Allergy Verified 07/31/25 17:07 Sulfa (Sulfonamide Allergy Verified 07/31/25 17:07 Antibiotics) - Past Medical History Past Medical History: Yes Neurological History: Peripheral Neuropathy ENT History: No Pertinent History Cardiac History: Angina, Arrhythmia, Deep Vein Thrombosis, Hypertension Respiratory History: No Pertinent History Endocrine Medical History: Diabetes Type II Musculoskelatal History: Osteoarthritis GI Medical History: GERD History: No Pertinent History Pyscho-Social History: Depression Male Reproductive Disorders: No Pertinent History Comment: HISTORY OF B LE WOUNDS, PARTIAL SEPTUS INVERTUS, RUPTURED L ROTATOR CUFF. ruptured varicose vein right thigh,anemia - Past Surgical History Past Surgical History: Yes Neuro Surgical History: No Pertinent History Cardiac History: No Pertinent History Respiratory Surgery: No Pertinent History GI Surgical History: No Pertinent History Genitourinary Surgical Hx: No Pertinent History Musculskeletal Surgical Hx: No Pertinent History Male Surgical History: No Pertinent History Other Surgical History: PINWHEEL DRAIN IN BACK TO DRAIN FLUIDS_DONE BY [employer] 2021,right leg back surgery for veins,leg lower ankle area surgery-RT leg Significant Family History: cancer - Social History Smoking Status: Never smoker Exposure to second hand smoke: No Alcohol: None Drug Use: none - Social Determinants of Health Will the patient participate in the screening: Yes Do you worry about a steady place to live?: No Do you have any problems with any of the following?: No known problems In the past 12 months,have you had to go without utilities?: No Have you or anyone in your house had to go without enough: No Transportation Issues: No Has anyone in your support network made you feel unsafe?: No Does the patient want assistance with any of the above?: No Physical Exam - Narrative Narrative Physical Exam: Podiatry Physical Exam Results - Labs Lab/Micro Results: Lab Results-Last 24 Hours 08/07/25 08/07/25 08/07/25 Range/Units 11:01 11:04 11:04 WBC 7.3 (4.23-9.07) x10^3/uL RBC 3.83 L (4.63-6.08) x10^6/uL Hgb 8.2 L (13.7-17.5) g/dL Hct 27.8 L (40.1-51.0) % MCV 72.6 L (79.0-92.2) fL MCH 21.4 L (25.7-32.2) pg MCHC 29.5 L (32.3-36.5) g/dL RDW 27.7 H (11.6-14.4) % Plt Count 301 (163-337) x10^3/uL MPV 9.1 L (9.4-12.4) fL Gran % 81.8 H (34.0-67.9) % Immature Gran % (Auto) 1.0 H (0.001-0.429) % Nucleat RBC Rel Count 0.0 (0.00-0.2) % Eos # (Auto) 0.38 (0.04-0.54) x10^3/uL Immature Gran # (Auto) 0.07 H (0.001-0.031) x10^3u/L Absolute Lymphs (auto) 0.33 L (1.32-3.57) x10^3/uL Absolute Monos (auto) 0.53 (0.30-0.82) x10^3/uL Absolute Nucleated RBC 0.00 (0.00-0.012) x10^3u/L Lymphocytes % 4.5 L (21.8-53.1) % Monocytes % 7.2 (5.3-12.2) % Eosinophils % 5.2 (0.8-7.0) % Basophils % 0.3 (0.2-1.2) % Absolute Granulocytes 6.00 H (1.78-5.38) x10^3/uL Basophils # 0.02 (0.01-0.08) x10^3/uL PT (9.4-12.5) SECONDS INR (0.8-3.0) APTT (25.1-36.5) SECONDS Sodium 144 (135-145) mmol/L Potassium 4.3 (3.5-5.1) mmol/L Chloride 114 H (98-107) mmol/L Carbon Dioxide 22 (22-30) mmol/L Anion Gap 12.4 (5-15) MEQ/L BUN 22 H (9-20) mg/dL Creatinine 1.22 (0.66-1.25) mg/dL Estimated GFR 67.5 ML/MIN Glucose 144 H (74-106) mg/dL Lactic Acid 0.7 (0.4-2.0) Calcium 8.7 (8.4-10.2) mg/dL Total Bilirubin 0.40 (0.2-1.3) mg/dL AST 15 L (17-59) U/L ALT 10 (0-50) U/L Alkaline Phosphatase 101 (38-126) U/L Serum Total Protein 7.0 (6.3-8.2) g/dL Albumin 3.1 L (3.5-5.0) g/dL Slides for Path Review YES 08/07/25 Range/Units 11:04 WBC (4.23-9.07) x10^3/uL RBC (4.63-6.08) x10^6/uL Hgb (13.7-17.5) g/dL Hct (40.1-51.0) % MCV (79.0-92.2) fL MCH (25.7-32.2) pg MCHC (32.3-36.5) g/dL RDW (11.6-14.4) % Plt Count (163-337) x10^3/uL MPV (9.4-12.4) fL Gran % (34.0-67.9) % Immature Gran % (Auto) (0.001-0.429) % Nucleat RBC Rel Count (0.00-0.2) % Eos # (Auto) (0.04-0.54) x10^3/uL Immature Gran # (Auto) (0.001-0.031) x10^3u/L Absolute Lymphs (auto) (1.32-3.57) x10^3/uL Absolute Monos (auto) (0.30-0.82) x10^3/uL Absolute Nucleated RBC (0.00-0.012) x10^3u/L Lymphocytes % (21.8-53.1) % Monocytes % (5.3-12.2) % Eosinophils % (0.8-7.0) % Basophils % (0.2-1.2) % Absolute Granulocytes (1.78-5.38) x10^3/uL Basophils # (0.01-0.08) x10^3/uL PT 11.3 (9.4-12.5) SECONDS INR 1.01 (0.8-3.0) APTT 30.1 (25.1-36.5) SECONDS Sodium (135-145) mmol/L Potassium (3.5-5.1) mmol/L Chloride (98-107) mmol/L Carbon Dioxide (22-30) mmol/L Anion Gap (5-15) MEQ/L BUN (9-20) mg/dL Creatinine (0.66-1.25) mg/dL Estimated GFR ML/MIN Glucose (74-106) mg/dL Lactic Acid (0.4-2.0) Calcium (8.4-10.2) mg/dL Total Bilirubin (0.2-1.3) mg/dL AST (17-59) U/L ALT (0-50) U/L Alkaline Phosphatase (38-126) U/L Serum Total Protein (6.3-8.2) g/dL Albumin (3.5-5.0) g/dL Slides for Path Review Microbiology 08/07/25 10:20 Blood Culture Gram Stain - Final Venous Access Site - Upper Not Reportable - Radiology Impressions Radiology Exams & Impressions: Radiology Procedures Category Date Time Status LOWER LEG Stat Exams 08/07/25 10:22 Completed LOWER LEG Stat Exams 08/07/25 10:22 Completed Assessment/Plan (1) Chronic edema Current Visit: Yes Status: Acute Assessment & Plan: Patient examination and evaluation The patient was advised to hold all diuretics at this time pending follow-up with nephrology given his recent episode of acute renal failure and current normalization of renal function. A discussion was held with the urologist who operated during his prior admission at [facility] to review his recent renal findings, including bilateral UPJ calculi with mild obstructive uropathy. The patient will continue with local wound care and compression therapy in the form of bilateral [place] boots, maintain hydration, and monitor urine output closely. Follow-up with nephrology and urology is recommended for further renal and stone management, with continued outpatient podiatry follow-up for reassessment of his lower extremities. Follow up for wound care in office. Code(s): R60.9 - EDEMA, UNSPECIFIED (2) Chronic ulcer of leg Current Visit: Yes Status: Acute Qualifiers: Laterality: unspecified laterality Non-pressure ulcer stage: unspecified non-pressure ulcer stage Qualified Code(s): L97.909 - Non-pressure chronic ulcer of unspecified part of unspecified lower leg with unspecified severity Code(s): L97.909 - NON-PRS CHRONIC ULC UNSP PRT OF UNSP LOW LEG W UNSP SEVERITY (3) Bladder stone Current Visit: No Status: Acute (4) Chronic wound of extremity Current Visit: No Status: Acute Code(s): [id number] -
[2025-08-07 14:06] VITALS: BP 145/76
== END 2025-08-07 15:17 | disposition home or self-care (01) ==
LOC: ED 10:00
DX: L97.928 Non-pressure chronic ulcer of unspecified part of left lower leg with other specified severity (principal); L97.918 Non-pressure chronic ulcer of unspecified part of right lower leg with other specified severity; I89.0 Lymphedema, not elsewhere classified; R60.9 Edema, unspecified; E11.42 Type 2 diabetes mellitus with diabetic polyneuropathy; I10 Essential (primary) hypertension; Z79.4 Long term (current) use of insulin; Z79.899 Other long term (current) drug therapy; Z86.718 Personal history of other venous thrombosis and embolism

== ENCOUNTER 2025-09-06 20:25 | Observation (INO) | payer MEDICARE ==
[2025-09-06 21:37] LABS: BASOPHIL % 0.1 % (0.2-1.2); Basophil (Absolute #) 0.01 x10^3/uL (0.01-0.08); Eosinophil (Absolute #) 0 x10^3/uL (0.04-0.54); Hematocrit 33.3 % (40.1-51.0); Hemoglobin 9.5 g/dL (13.7-17.5); IMMATURE GRAN # 0.09 x10^3u/L (0.001-0.031); IMMATURE GRAN % 0.7 % (0.001-0.429); Lymphocyte (Absolute #) 0.54 x10^3/uL (1.32-3.57); Mean Corpuscular Hemoglobin 21.1 pg (25.7-32.2); Mean Corpuscular Hgb Concent. 28.5 g/dL (32.3-36.5); Monocyte (Absolute #) 0.63 x10^3/uL (0.30-0.82); NUCLEATED RBC # 0.00 x10^3u/L (0.00-0.012); NUCLEATED RBC % 0.0 % (0.00-0.2); Platelet Count 430 x10^3/uL (163-337); Red Blood Count 4.51 x10^6/uL (4.63-6.08); White Blood Count 13.7 x10^3/uL (4.23-9.07)
[2025-09-06 21:43] LABS: Calcium 9.3 mg/dL (8.4-10.2); Carbon Dioxide 23.0 mmol/L (22-30); Creatinine 1 1.57 mg/dL (0.66-1.25); EST GLOMERULAR FILTRATION RATE 49.8 ML/MIN; Glucose 280.0 mg/dL (74-106); Potassium 4.7 mmol/L (3.5-5.1); SGOT/AST 38.0 U/L (17-59); SGPT/ALT 22.0 U/L (0-50); Total Protein 7.9 g/dL (6.3-8.2)
[2025-09-06 21:44] LABS: INR 1.46 (0.8-3.0); PROTIME 16.1 SECONDS (9.4-12.5)
[2025-09-06 22:03] LABS: NT PRO BNPII 2220.0 pg/mL (<300)
--- NOTE | 2025-09-06 22:09 | ERPHSYRPT ---
- History of Present Illness Time Seen by Provider: 09/06/25 20:40 Source: patient, EMS, old records Exam Limitations: clinical condition Patient Subjective Stated Complaint: Pt brought in by EMS, was found down in bathroom unresponsive by Sc[facility] 4. When Sc[facility] 1 arrived, pt was alert. Pt brought in to ER. Triage Nursing Assessment: Pt brought in by EMS. Pt was found down in his bathroom by his neighbor, unresponsive; unsure of amount of time pt was down. Pt was unresponsive when [facility] 4 arrived but pt was responsive when [facility] 1 arrived. Pt is alert and responsive upon arrival to ER. Pt denies any pain upon arrival but does c/o left hip pain when moved pt around in the bed. Pt has bilat legs wrapped upon arrival. Pt is excoriated under rt breast, excoriated to bilat groins and entire pubic area, and has bleeding noted to coccyx area. Pt has a very strong odor to him and was somewhat dirty upon arrival. Pt is unsure of his home meds. Pt has several pill bottles that EMS brought in but it does not appear that pt has been taking his home meds appropriately as several of the bottles are completely full and were filled in 2023. Physician History: This is a morbidly obese 60-year-old insulin-dependent diabetic white male patient of Dr. Odell brought to the emergency department by the sales and service agent service secondary to neighbor finding him unresponsive and on the ground at home. No one knows how long he was laying down. The initial EMS crew arrived and he was somewhat unresponsive. However when he was rolled over to lay on his back he looked up and ever since then he has been awake alert and oriented. The paramedics arrived and he was awake alert and oriented for them. He only complains of left hip pain. He has no headache. He does not have chest pain. He does not recall the events. The paramedics commented that the patient lives in a hoarding type living environment. Patient has a history of hypertension, insulin-dependent diabetes, chronic leg ulcerations, peripheral neuropathy, hyperlipidemia, arrhythmia, chronic angina and is on Xarelto. Timing/Duration: today Severity: moderate Modifying Factors: Improves With: nothing Associated Symptoms: weakness, No shortness of breath, No chest pain Allergies/Adverse Reactions: ciprofloxacin [From Cipro] Allergy (Verified 09/06/25 20:35) Rash clindamycin Allergy (Verified 09/06/25 20:35) Rash Penicillins Allergy (Verified 09/06/25 20:35) Rash Sulfa (Sulfonamide Antibiotics) Allergy (Verified 09/06/25 20:35) Rash Home Medications: Insulin Glargine [Lantus Insulin] 66 unit SQ BID 10/18/23 [History] Insulin Lispro [Humalog] 14 unit SQ BREAKFAST 11/02/24 [History] Insulin Lispro [Humalog] 22 unit SQ LUNCH 11/02/24 [History] Insulin Lispro [Humalog] 26 unit SQ DINNER 11/02/24 [History] Ropinirole HCl 0.5 mg PO HS 07/11/25 [History] Atorvastatin Calcium 20 mg PO DAILY 07/31/25 [History] Ergocalciferol (Vitamin D2) [Vitamin D2] 1 cap PO WEEKLY 07/31/25 [History] Torsemide 20 mg [Demadex 20 mg] 20 mg PO BID 07/31/25 [History] Ferrous Sulfate, Dried [Iron] 159 mg PO DAILY 08/07/25 [History] Tamsulosin HCl 0.4 mg PO DAILY 08/07/25 [History] Aspirin EC 81 mg [Ecotrin 81 mg] 1 tab PO DAILY 08/17/25 [History] Collagenase Oint [Santyl OINTMENT] 1 applic TP UD 08/17/25 [History] Famotidine 20 mg [Pepcid 20 MG] 1 tab PO DAILY 08/17/25 [History] Furosemide 20 mg [Lasix 20 mg] 1 tab PO BID 08/17/25 [History] Gentian Miladis 1 applic TP UD 08/17/25 [History] Hydrocodone/Acetaminophen [Hydrocodon-Acetaminophen 5-325] 1 tab PO Q6H PRN 08/17/25 [History] Insulin Glargine-Yfgn [Semglee (Yfgn) Pen] 1 dose SQ UD 08/17/25 [History] Metoprolol Tartrate 25 mg [Lopressor 25MG Tab] 1 tab PO BID 08/17/25 [History] Pentoxifylline 1 tab PO UD 08/17/25 [History] Potassium Chloride 20 meq PO DAILY 08/17/25 [History] Potassium Chloride [Klor-Con 10] 1 tab PO DAILY 08/17/25 [History] Sodium Chloride 0.9 % (Flush) [Normal Saline Flush] 1 applic TP UD 08/17/25 [History] Sodium Hypochlorite 0.5% [Dakin's Soln FULL STRENGTH] 1 applic TP UD 08/17/25 [History] Valsartan/Hydrochlorothiazide [Valsartan-Hctz 320-25 mg Tab] 0.5 tab PO DAILY 08/17/25 [History] metOLazone [Metolazone] 5 mg PO UD 08/17/25 [History] Hx Tetanus, Diphtheria Vaccination/Date Given: Yes Hx Influenza Vaccination/Date Given: No Hx Pneumococcal Vaccination/Date Given: No Travel Risk - International Travel Have you traveled outside of the country in past 3 weeks: No - Emerging Infectious Disease Are you exhibiting symptoms associated with any current EIDs: No Symptoms: Diarrhea - Review of Systems Constitutional: Weakness Eyes: No Symptoms Ears, Nose, & Throat: No Symptoms Respiratory: No Symptoms Cardiac: No Symptoms Abdominal/Gastrointestinal: No Symptoms Genitourinary Symptoms: No Symptoms Musculoskeletal: No Symptoms Skin: Skin Lesions, Other (Chronic bilateral lower extremity ulcerations) Neurological: No Symptoms Psychological: No Symptoms Endocrine: No Symptoms Hematologic/Lymphatic: No Symptoms Immunological/Allergic: No Symptoms All Other Systems: Reviewed and Negative - Past Medical History Pertinent Past Medical History: Yes Neurological History: Peripheral Neuropathy ENT History: No Pertinent History Cardiac History: Angina, Arrhythmia, Deep Vein Thrombosis, Hypertension Respiratory History: No Pertinent History Endocrine Medical History: Diabetes Type II Musculoskeletal History: Osteoarthritis GI Medical History: GERD History: No Pertinent History Psycho-Social History: Depression Male Reproductive Disorders: No Pertinent History Other Medical History: HISTORY OF B LE WOUNDS, PARTIAL SEPTUS INVERTUS, RUPTURED L ROTATOR CUFF. ruptured varicose vein right thigh, anemia - Past Surgical History Past Surgical History: Yes Neuro Surgical History: No Pertinent History Cardiac: No Pertinent History Respiratory: No Pertinent History Gastrointestinal: No Pertinent History Genitourinary: No Pertinent History Musculoskeletal: No Pertinent History Male Surgical History: No Pertinent History Other Surgical History: PINWHEEL DRAIN IN BACK TO DRAIN FLUIDS_DONE BY [employer]ZA 2021,right leg back surgery for veins,leg lower ankle area surgery-RT leg Significant Family History: cancer - Social History Smoking Status: Never smoker Exposure to second hand smoke: No Drug Use: none - Social Determinants of Health Will the patient participate in the screening: Yes Do you worry about a steady place to live?: No Do you have any problems with any of the following?: No known problems In the past 12 months,have you had to go without utilities?: Yes Transportation Issues: Yes Has anyone in your support network made you feel unsafe?: No Have you or anyone in your house had to go w/o enough food: Yes - Nursing Vital Signs Nursing Vital Signs: Initial Vital Signs Temperature 96.5 F 09/06/25 20:33 Pulse Rate 88 09/06/25 20:33 Respiratory Rate 24 09/06/25 20:33 Blood Pressure 151/85 09/06/25 20:33 O2 Sat by Pulse Oximetry 99 09/06/25 20:33 Pain Scale Pain Intensity 0 - Physical Exam General Appearance: no apparent distress, alert, anxiety, obese, other (Patient is malodorous smelling of urine and mildew) Eye Exam: PERRL/EOMI, eyes nml inspection Ears, Nose, Throat Exam: normal ENT inspection, moist mucous membranes Neck Exam: normal inspection, non-tender, supple, full range of motion Respiratory Exam: No chest tenderness, No respiratory distress Gastrointestinal/Abdomen Exam: soft, normal bowel sounds, No tenderness Rectal Exam: not done Back Exam: other (Skin excoriation) Neurologic Exam: alert, cooperative, bottle tester II-XII nml as tested Skin Exam: other (Skin excoriation in the back as well as skin folds) Lymphatic Exam: No adenopathy SpO2 Interpretation: normal SpO2: 100 O2 Delivery: Room Air - Course Nursing assessment & vital signs reviewed: Yes EKG Interpreted by Me: RATE (83), A-fib, NORMAL AXIS, prolonged QT interval (Borderline), NORMAL QRS, Other (QTc 486. No acute ischemia) Ordered Tests: Active Orders 24 hr Category Date Time Status Library Monitor STAT Care 09/06/25 21:28 Active Cath for Specimen-Straight STAT Care 09/06/25 21:29 Active IV Insertion STAT Care 09/06/25 21:28 Active ACO SDOH Referral ONCE Cons 09/06/25 21:00 Active HEAD WITHOUT CONTRAST [CT] Stat Exams 09/06/25 21:10 Taken LOWER EXTREMITY WO CONTRAST [CT] Stat Exams 09/06/25 21:12 Taken BLOOD CULTURE Stat Lab 09/06/25 21:53 Received CBC W DIFF Stat Lab 09/06/25 21:35 Completed CMP Stat Lab 09/06/25 21:35 Completed CULTURE,URINE Stat Lab 09/06/25 22:44 Received Lactic Acid Stat Lab 09/06/25 21:29 Completed MAGNESIUM Stat Lab 09/06/25 21:35 Completed NT PRO BNPII Stat Lab 09/06/25 21:35 Completed POCT GLUCOSE Stat Lab 09/06/25 20:45 Completed PROCALCITONIN Stat Lab 09/06/25 21:35 Completed PROTIME WITH INR Stat Lab 09/06/25 21:35 Completed UA W/RFX UR CULTURE Stat Lab 09/06/25 22:44 Completed Medication Summary Generic Name Dose Route Start Last Admin Trade Name Freq PRN Reason Stop Dose Admin Sodium Chloride 1,000 mls @ 100 mls/hr 09/06/25 21:30 09/06/25 22:05 Sodium Chloride 0.9% 1000 Ml IV 10/06/25 21:29 100 mls/hr .Q10H GERRI Administration Levofloxacin/Dextrose 500 mg in 100 mls @ 100 mls/hr 09/06/25 23:14 09/06/25 23:34 Levofloxacin 500mg/100ml D5w IV 09/07/25 00:13 100 mls/hr STAT STA 100 mls/hr Administration Discontinued Medications Generic Name Dose Route Start Last Admin Trade Name Freq PRN Reason Stop Dose Admin Levofloxacin/Dextrose Confirm 09/06/25 23:33 Levofloxacin 500mg/100ml D5w Administered 09/06/25 23:34 Dose 500 mg in 100 mls @ ud IV .[facility] Lab/Rad Data: Laboratory Result Diagrams 09/06/25 21:35 09/06/25 21:35 Laboratory Results 09/06/25 09/06/25 09/06/25 Range/Units 22:44 21:35 21:35 WBC (4.23-9.07) x10^3/uL RBC (4.63-6.08) x10^6/uL Hgb (13.7-17.5) g/dL Hct (40.1-51.0) % MCV (79.0-92.2) fL MCH (25.7-32.2) pg MCHC (32.3-36.5) g/dL RDW (11.6-14.4) % Plt Count (163-337) x10^3/uL MPV (9.4-12.4) fL Gran % (34.0-67.9) % Immature Gran % (Auto) (0.001-0.429) % Nucleat RBC Rel Count (0.00-0.2) % Eos # (Auto) (0.04-0.54) x10^3/uL Immature Gran # (Auto) (0.001-0.031) x10^3u/L Absolute Lymphs (auto) (1.32-3.57) x10^3/uL Absolute Monos (auto) (0.30-0.82) x10^3/uL Absolute Nucleated RBC (0.00-0.012) x10^3u/L Lymphocytes % (21.8-53.1) % Monocytes % (5.3-12.2) % Eosinophils % (0.8-7.0) % Basophils % (0.2-1.2) % Absolute Granulocytes (1.78-5.38) x10^3/uL Basophils # (0.01-0.08) x10^3/uL PT 16.1 H (9.4-12.5) SECONDS INR 1.46 (0.8-3.0) Sodium (135-145) mmol/L Potassium (3.5-5.1) mmol/L Chloride (98-107) mmol/L Carbon Dioxide (22-30) mmol/L Anion Gap (5-15) MEQ/L BUN (9-20) mg/dL Creatinine (0.66-1.25) mg/dL Estimated GFR ML/MIN Glucose (74-106) mg/dL POC Glucometer (74 to 106) mg/dL Lactic Acid (0.4-2.0) Calcium (8.4-10.2) mg/dL Magnesium (1.6-2.3) mg/dL Total Bilirubin (0.2-1.3) mg/dL AST (17-59) U/L ALT (0-50) U/L Alkaline Phosphatase (38-126) U/L NT-Pro-B Natriuret Pep 2220 (<300) pg/mL Serum Total Protein (6.3-8.2) g/dL Albumin (3.5-5.0) g/dL Procalcitonin 0.672 H (0.030-0.080) ng/mL Urine Color Yellow (Yellow) Urine Appearance Turbid A (Clear) Urine pH 5.0 (4.6-8.0) Ur Specific [place] 1.015 (1.005-1.030) Urine Protein 100 A (Negative) Urine Glucose (UA) Negative (Negative) mg/dL Urine Ketones Trace A (Negative) Urine Blood Large A (Negative) Urine Nitrite Negative (Negative) Urine Bilirubin Negative (Negative) Urine Urobilinogen 1.0 A (0.2) mg/dL Ur Leukocyte Esterase Large A (Negative) U Hyaline Cast (Auto) 0-2 (0-2) /LPF Urine Microscopic RBC 51-100 A (0-5) /HPF Urine Microscopic WBC >100 A (0-5) /HPF Ur Epithelial Cells None Seen (None Seen) /HPF Urine Bacteria Many A (None Seen) /HPF Ur Yeast w Hyphae Many A (None Seen) /HPF Urine Culture Reflexed ORDERED SEPARATELY (NO) Slides for Path Review 09/06/25 09/06/25 09/06/25 Range/Units 21:35 21:35 21:29 WBC 13.7 H (4.23-9.07) x10^3/uL RBC 4.51 L (4.63-6.08) x10^6/uL Hgb 9.5 L (13.7-17.5) g/dL Hct 33.3 L (40.1-51.0) % MCV 73.8 L (79.0-92.2) fL MCH 21.1 L (25.7-32.2) pg MCHC 28.5 L (32.3-36.5) g/dL RDW 23.8 H (11.6-14.4) % Plt Count 430 H (163-337) x10^3/uL MPV 9.5 (9.4-12.4) fL Gran % 90.6 H (34.0-67.9) % Immature Gran % (Auto) 0.7 H (0.001-0.429) % Nucleat RBC Rel Count 0.0 (0.00-0.2) % Eos # (Auto) 0 L (0.04-0.54) x10^3/uL Immature Gran # (Auto) 0.09 H (0.001-0.031) x10^3u/L Absolute Lymphs (auto) 0.54 L (1.32-3.57) x10^3/uL Absolute Monos (auto) 0.63 (0.30-0.82) x10^3/uL Absolute Nucleated RBC 0.00 (0.00-0.012) x10^3u/L Lymphocytes % 4.0 L (21.8-53.1) % Monocytes % 4.6 L (5.3-12.2) % Eosinophils % 0.0 L (0.8-7.0) % Basophils % 0.1 L (0.2-1.2) % Absolute Granulocytes 12.39 H (1.78-5.38) x10^3/uL Basophils # 0.01 (0.01-0.08) x10^3/uL PT (9.4-12.5) SECONDS INR (0.8-3.0) Sodium 140 (135-145) mmol/L Potassium 4.7 (3.5-5.1) mmol/L Chloride 102 (98-107) mmol/L Carbon Dioxide 23 (22-30) mmol/L Anion Gap 19.7 H (5-15) MEQ/L BUN 51 H (9-20) mg/dL Creatinine 1.57 H (0.66-1.25) mg/dL Estimated GFR 49.8 ML/MIN Glucose 280 H (74-106) mg/dL POC Glucometer (74 to 106) mg/dL Lactic Acid 2.0 (0.4-2.0) Calcium 9.3 (8.4-10.2) mg/dL Magnesium 2.1 (1.6-2.3) mg/dL Total Bilirubin 0.80 (0.2-1.3) mg/dL AST 38 (17-59) U/L ALT 22 (0-50) U/L Alkaline Phosphatase 150 H (38-126) U/L NT-Pro-B Natriuret Pep (<300) pg/mL Serum Total Protein 7.9 (6.3-8.2) g/dL Albumin 3.3 L (3.5-5.0) g/dL Procalcitonin (0.030-0.080) ng/mL Urine Color (Yellow) Urine Appearance (Clear) Urine pH (4.6-8.0) Ur Specific [place] (1.005-1.030) Urine Protein (Negative) Urine Glucose (UA) (Negative) mg/dL Urine Ketones (Negative) Urine Blood (Negative) Urine Nitrite (Negative) Urine Bilirubin (Negative) Urine Urobilinogen (0.2) mg/dL Ur Leukocyte Esterase (Negative) U Hyaline Cast (Auto) (0-2) /LPF Urine Microscopic RBC (0-5) /HPF Urine Microscopic WBC (0-5) /HPF Ur Epithelial Cells (None Seen) /HPF Urine Bacteria (None Seen) /HPF Ur Yeast w Hyphae (None Seen) /HPF Urine Culture Reflexed (NO) Slides for Path Review YES 09/06/25 Range/Units 20:45 WBC (4.23-9.07) x10^3/uL RBC (4.63-6.08) x10^6/uL Hgb (13.7-17.5) g/dL Hct (40.1-51.0) % MCV (79.0-92.2) fL MCH (25.7-32.2) pg MCHC (32.3-36.5) g/dL RDW (11.6-14.4) % Plt Count (163-337) x10^3/uL MPV (9.4-12.4) fL Gran % (34.0-67.9) % Immature Gran % (Auto) (0.001-0.429) % Nucleat RBC Rel Count (0.00-0.2) % Eos # (Auto) (0.04-0.54) x10^3/uL Immature Gran # (Auto) (0.001-0.031) x10^3u/L Absolute Lymphs (auto) (1.32-3.57) x10^3/uL Absolute Monos (auto) (0.30-0.82) x10^3/uL Absolute Nucleated RBC (0.00-0.012) x10^3u/L Lymphocytes % (21.8-53.1) % Monocytes % (5.3-12.2) % Eosinophils % (0.8-7.0) % Basophils % (0.2-1.2) % Absolute Granulocytes (1.78-5.38) x10^3/uL Basophils # (0.01-0.08) x10^3/uL PT (9.4-12.5) SECONDS INR (0.8-3.0) Sodium (135-145) mmol/L Potassium (3.5-5.1) mmol/L Chloride (98-107) mmol/L Carbon Dioxide (22-30) mmol/L Anion Gap (5-15) MEQ/L BUN (9-20) mg/dL Creatinine (0.66-1.25) mg/dL Estimated GFR ML/MIN Glucose (74-106) mg/dL POC Glucometer 240 H (74 to 106) mg/dL Lactic Acid (0.4-2.0) Calcium (8.4-10.2) mg/dL Magnesium (1.6-2.3) mg/dL Total Bilirubin (0.2-1.3) mg/dL AST (17-59) U/L ALT (0-50) U/L Alkaline Phosphatase (38-126) U/L NT-Pro-B Natriuret Pep (<300) pg/mL Serum Total Protein (6.3-8.2) g/dL Albumin (3.5-5.0) g/dL Procalcitonin (0.030-0.080) ng/mL Urine Color (Yellow) Urine Appearance (Clear) Urine pH (4.6-8.0) Ur Specific [place] (1.005-1.030) Urine Protein (Negative) Urine Glucose (UA) (Negative) mg/dL Urine Ketones (Negative) Urine Blood (Negative) Urine Nitrite (Negative) Urine Bilirubin (Negative) Urine Urobilinogen (0.2) mg/dL Ur Leukocyte Esterase (Negative) U Hyaline Cast (Auto) (0-2) /LPF Urine Microscopic RBC (0-5) /HPF Urine Microscopic WBC (0-5) /HPF Ur Epithelial Cells (None Seen) /HPF Urine Bacteria (None Seen) /HPF Ur Yeast w Hyphae (None Seen) /HPF Urine Culture Reflexed (NO) Slides for Path Review - Progress Progress: improved, re-examined Progress Note: 09/06/25 22:13 My medical decision making and the assignment of high complexity of this patient's medical issue today is based on review the patient's past medical history, reviewed patient's medication list, reviewed patient drug allergy list, history present illness and physical findings on examination. The workup of this patient includes placement of intravenous line, infusion of normal saline solution, CBC, CMP, magnesium level, troponin level, BNP, x-ray left hip, CT scan of head, urinalysis, lactic acid level, procalcitonin level. Differential diagnosis includes but is not limited to weakness, TIA, CVA, urinary tract infection, dehydration, left hip fracture/dislocation, electrolyte abnormalities, arrhythmias 09/06/25 22:[address] scans were both performed without contrast and were interpreted by the radiologist. The impressions are as follows: CT scan of the left hip when compared to [facility] x-ray dated 07/31/2025 there is new bilateral ureteral stents. There is osteopenia present. The remaining left hip is negative. CT scan of the head without contrast shows no comparison films. There is nonacute senile brain with remote lacunar infarct of the left basal ganglia and 3.2 cm round arachnoid cyst left middle fossa. 09/06/25 23:12 I interpreted the patient's laboratory data results. Based on laboratory data results, the patient has a leukocytosis with a left shift. He also has a history of chronic anemia. He has not has hyperglycemia today. He has a normal lactic acid level and an elevated procalcitonin level. He definitely has a urinary tract infection. 09/06/25 23:15 The patient has tolerated Levaquin as recently as March 2025 and May 2025. We asked him if he can take Levaquin and he stated that he could. 09/07/25 00:11 I spoke with telehospitalist, Dr. Palafox. I reviewed the patient history, presenting complaint, physical findings on examination and workup results with him. We will place him in observation. Will provide him with low rate IV hydration, intravenous antibiotics, repeat labs and have wound care nurse evaluate this patient's various wounds. Will also obtain a consultation with Dr. Moreno, podiatry to evaluate his leg wounds. Counseled pt/family regarding: lab results, diagnosis, rad results Medical Desision Making - Independent Historian Additional History obtained from: Ground Instructor Basic/EMT - Diagnostic Testing Diagnostic test were ordered, analyzed, and reviewed by me: Yes Radiological Interpretation: Reviewed by me, Teleradiologist Report - Risk of complications The pt has a high risk of morbidity or mortality based on: Decision regarding hospitilization or escalation of hosp level of care - Departure Departure Disposition: Observation Clinical Impression: Weakness, UTI (urinary tract infection), Chronic anemia, Chronic ulcer of leg Condition: Fair Critical Care Time: No Referrals: EVA ODELL LOGGING SUPERVISOR [Primary Care Provider, UNKNOWN] - Follow up/PCP as directed
[2025-09-06 22:58] LABS: Glucose, Urine Negative (Negative); Protein,Urine Dip 100 (Negative); RBC 51-100 /HPF (0-5); WBC >100 /HPF (0-5)
[2025-09-06 22:59] LABS: Hyphae Yeast Many /HPF (None Seen)
[2025-09-06 23:09] LABS: Slide Review 1 YES
[2025-09-06] MEDS ORDERED: Levofloxacin 500MG/100ML D5W 500 MG/100 ML BAG IV ONE (23:33)
[2025-09-06] MEDS: Levofloxacin 500MG/100ML D5W 500 MG/100 ML BAG IV STA (23:34)
[2025-09-07] MEDS ORDERED: TYLENOL 325 MG PO PRN (00:55)
[2025-09-07 04:53] LABS: Hematocrit 29.2 % (40.1-51.0); Hemoglobin 8.3 g/dL (13.7-17.5); Mean Corpuscular Hemoglobin 21.1 pg (25.7-32.2); Mean Corpuscular Hgb Concent. 28.4 g/dL (32.3-36.5); Platelet Count 324 x10^3/uL (163-337); Red Blood Count 3.94 x10^6/uL (4.63-6.08); White Blood Count 14.2 x10^3/uL (4.23-9.07)
[2025-09-07 05:13] LABS: Calcium 8.7 mg/dL (8.4-10.2); Carbon Dioxide 23.0 mmol/L (22-30); Creatinine 1 1.58 mg/dL (0.66-1.25); EST GLOMERULAR FILTRATION RATE 49.5 ML/MIN; Glucose 265.0 mg/dL (74-106); NT PRO BNPII 1930.0 pg/mL (<300); Potassium 4.3 mmol/L (3.5-5.1)
--- NOTE | 2025-09-07 05:28 | PCM.HP ---
History of Present Illness - Chief Complaint Chief Complaint: Weakness History of Present Illness: The patient is a 60-year-old male with a PMH of A-fib (on Xarelto), type II DM complicated by peripheral neuropathy, and PTSD who presents to the emergency room brought in by EMS after he was found in his home by his neighbor on the ground. The patient was reportedly drawn in his bathroom, confused and minimally responsive. By the time the patient had arrived to the ER, he was alert and was fully responsive. The patient was reportedly staying in squalid conditions, and had a foul odor to him. At the time of interview, the patient reports that he previously was seeing a vascular surgeon for his lower extremity ulcers but that he had not followed up with him in quite some time and that the dressings have not been changed. He reports mild generalized leg pain, unable to quantify. He denied any additional complaints. He denied experiencing chest discomfort, shortness of breath, fever, chills, cough, nausea, vomiting, abdominal pain, or diarrhea. He does report feeling weak. In the emergency department, a CT head and CT lower extremities were unremarkable as discussed with and interpreted by the ER provider. Laboratory evaluation was remarkable for leukocytosis of 13.7, hemoglobin 9.5, platelet count 430, sodium 140, BUN 51, creatinine 1.57 (previously 1.2), glucose 280, alk phos 150, creatinine kinase 444, proBNP 2220, procalcitonin 0.672, and UA consistent with UTI. The case was discussed with the ER provider in detail and chart was reviewed. Review of Systems: A complete and thorough review of system was performed and was negative except as stated in the HPI. Physical Examination: General: Disheveled male, in no acute distress. Obese HEENT: Head atruamatic normocephaic, PERRL, no scleral icterus, no oral lesions Cardiovascular: Regular rate and rhythm, S1S2 normal, no murmurs appreciated Respiratory: Clear to auscultation bilaterally, no wheezes, rales, rhonchi Abdomen: Soft, nontender, nondistended, normoactive bowel sounds, no guarding Skin: Multiple areas of skin fold erythema, scrotum excoriations and ulceration, gluteal ulcer, right heel unstageable ulcer 4 cm Musculoskeletal: Bilateral lower extremity significant ulcerations diffusely with some purulence and erythema Neurological: Alert and oriented x 3. Strength 2/5 in bilateral lower extremities and strength 4/5 of bilateral upper extremities, no obvious focal deficits noted Psychiatric: Normal mood, affect, with cohesive thought process Assessment & Plan UTI and multiple infected ulcers and cellulitis - Prior cultures grew multidrug-resistant Proteus, Pseudomonas, and Enterococcus - Start patient on cefepime 2 g Q12 hourly (renally adjusted dose) and vancomycin per pharmacy dosing - Follow-up blood and urine cultures - Wound care JOE on CKD stage IIIa - Continue patient on IV fluids normal saline 100 mL/h Microcytic anemia - Check anemia panel Type II DM - Insulin sliding scale and blood glucose monitoring Rhabdomyolysis - Continue with above IV fluids and monitor CK levels Chronic conditions: A-fib, PTSD - Continue patient's home medications once reconciled DVT prophylaxis: Eliquis (unclear if the patient is still taking Xarelto) CODE STATUS: Full code Medications & Allergies Home Medications: Home Medication List Insulin Glargine [Lantus Insulin] 66 unit SQ BID 10/18/23 [History Confirmed 08/17/25] Insulin Lispro [Humalog] 14 unit SQ BREAKFAST 11/02/24 [History Confirmed 08/17/25] Insulin Lispro [Humalog] 22 unit SQ LUNCH 11/02/24 [History Confirmed 08/17/25] Insulin Lispro [Humalog] 26 unit SQ DINNER 11/02/24 [History Confirmed 08/17/25] Ropinirole HCl 0.5 mg PO HS 07/11/25 [History Confirmed 08/17/25] Atorvastatin Calcium 20 mg PO DAILY 07/31/25 [History Confirmed 08/17/25] Ergocalciferol (Vitamin D2) [Vitamin D2] 1 cap PO WEEKLY 07/31/25 [History Confirmed 08/17/25] Torsemide 20 mg [Demadex 20 mg] 20 mg PO BID 07/31/25 [History Confirmed 08/17/25] Ferrous Sulfate, Dried [Iron] 159 mg PO DAILY 08/07/25 [History Confirmed 08/17/25] Tamsulosin HCl 0.4 mg PO DAILY 08/07/25 [History Confirmed 08/17/25] Aspirin EC 81 mg [Ecotrin 81 mg] 1 tab PO DAILY 08/17/25 [History Confirmed 08/17/25] Collagenase Oint [Santyl OINTMENT] 1 applic TP UD 08/17/25 [History Confirmed 08/17/25] Famotidine 20 mg [Pepcid 20 MG] 1 tab PO DAILY 08/17/25 [History Confirmed 08/17/25] Furosemide 20 mg [Lasix 20 mg] 1 tab PO BID 08/17/25 [History Confirmed 08/17/25] Gentian Miladis 1 applic TP UD 08/17/25 [History Confirmed 08/17/25] Hydrocodone/Acetaminophen [Hydrocodon-Acetaminophen 5-325] 1 tab PO Q6H PRN 08/17/25 [History Confirmed 08/17/25] Insulin Glargine-Yfgn [Semglee (Yfgn) Pen] 1 dose SQ UD 08/17/25 [History Confirmed 08/17/25] Metoprolol Tartrate 25 mg [Lopressor 25MG Tab] 1 tab PO BID 08/17/25 [History Confirmed 08/17/25] Pentoxifylline 1 tab PO UD 08/17/25 [History Confirmed 08/17/25] Potassium Chloride 20 meq PO DAILY 08/17/25 [History Confirmed 08/17/25] Potassium Chloride [Klor-Con 10] 1 tab PO DAILY 08/17/25 [History Confirmed 08/17/25] Sodium Chloride 0.9 % (Flush) [Normal Saline Flush] 1 applic TP UD 08/17/25 [History Confirmed 08/17/25] Sodium Hypochlorite 0.5% [Dakin's Soln FULL STRENGTH] 1 applic TP UD 08/17/25 [History Confirmed 08/17/25] Valsartan/Hydrochlorothiazide [Valsartan-Hctz 320-25 mg Tab] 0.5 tab PO DAILY 08/17/25 [History Confirmed 08/17/25] metOLazone [Metolazone] 5 mg PO UD 08/17/25 [History Confirmed 08/17/25] Allergies/Adverse Reactions: Allergies Allergy/AdvReac Type Severity Reaction Status Date / Time ciprofloxacin [From Cipro] Allergy Rash Verified 09/06/25 20:35 clindamycin Allergy Rash Verified 09/06/25 20:35 Penicillins Allergy Rash Verified 09/06/25 20:35 Sulfa (Sulfonamide Allergy Rash Verified 09/06/25 20:35 Antibiotics) - Past Medical History Past Medical History: Yes Neurological History: Peripheral Neuropathy ENT History: No Pertinent History Cardiac History: Angina, Arrhythmia, Deep Vein Thrombosis, Hypertension Respiratory History: No Pertinent History Endocrine Medical History: Diabetes Type II Musculoskelatal History: Osteoarthritis GI Medical History: GERD History: No Pertinent History Pyscho-Social History: Depression Male Reproductive Disorders: No Pertinent History Comment: HISTORY OF B LE WOUNDS, PARTIAL SEPTUS INVERTUS, RUPTURED L ROTATOR CUFF. ruptured varicose vein right thigh, anemia - Past Surgical History Past Surgical History: Yes Neuro Surgical History: No Pertinent History Cardiac History: No Pertinent History Respiratory Surgery: No Pertinent History GI Surgical History: No Pertinent History Genitourinary Surgical Hx: No Pertinent History Musculskeletal Surgical Hx: No Pertinent History Male Surgical History: No Pertinent History Other Surgical History: PINWHEEL DRAIN IN BACK TO DRAIN FLUIDS_DONE BY [employer] 2021,right leg back surgery for veins,leg lower ankle area surgery-RT leg Significant Family History: cancer - Social History Smoking Status: Never smoker Exposure to second hand smoke: No Alcohol: None Drug Use: none - Social Determinants of Health Will the patient participate in the screening: Unable to obtain Do you worry about a steady place to live?: No Do you have any problems with any of the following?: No known problems In the past 12 months,have you had to go without utilities?: Yes Have you or anyone in your house had to go without enough: Yes Transportation Issues: Yes Has anyone in your support network made you feel unsafe?: No Does the patient want assistance with any of the above?: No - Physical Exam Vital Signs: Vital Signs - 24 hr Temp Pulse Resp BP BP Pulse Ox 09/07/25 04:00 97.8 F 68 18 127/60 95 09/07/25 01:03 97.4 F 77 118/69 95 09/07/25 00:45 97.4 F 77 118/69 95 09/07/25 00:17 100 09/07/25 00:10 75 22 103/52 97 09/07/25 00:03 96 09/06/25 23:38 78 24 127/59 95 09/06/25 23:37 79 24 122/60 96 09/06/25 22:31 85 18 124/62 96 09/06/25 22:09 68 18 99/80 97 09/06/25 22:00 74 22 99/80 98 09/06/25 21:54 99 09/06/25 21:40 97 09/06/25 21:37 98 09/06/25 21:00 81 24 130/83 100 09/06/25 20:35 151/85 97 09/06/25 20:33 96.5 F 88 24 151/85 99 Results - Labs Lab/Micro Results: Lab Results-Last 24 Hours 09/06/25 09/06/25 09/06/25 Range/Units 20:45 21:29 21:35 WBC 13.7 H (4.23-9.07) x10^3/uL RBC 4.51 L (4.63-6.08) x10^6/uL Hgb 9.5 L (13.7-17.5) g/dL Hct 33.3 L (40.1-51.0) % MCV 73.8 L (79.0-92.2) fL MCH 21.1 L (25.7-32.2) pg MCHC 28.5 L (32.3-36.5) g/dL RDW 23.8 H (11.6-14.4) % Plt Count 430 H (163-337) x10^3/uL MPV 9.5 (9.4-12.4) fL Gran % 90.6 H (34.0-67.9) % Immature Gran % (Auto) 0.7 H (0.001-0.429) % Nucleat RBC Rel Count 0.0 (0.00-0.2) % Eos # (Auto) 0 L (0.04-0.54) x10^3/uL Immature Gran # (Auto) 0.09 H (0.001-0.031) x10^3u/L Absolute Lymphs (auto) 0.54 L (1.32-3.57) x10^3/uL Absolute Monos (auto) 0.63 (0.30-0.82) x10^3/uL Absolute Nucleated RBC 0.00 (0.00-0.012) x10^3u/L Lymphocytes % 4.0 L (21.8-53.1) % Monocytes % 4.6 L (5.3-12.2) % Eosinophils % 0.0 L (0.8-7.0) % Basophils % 0.1 L (0.2-1.2) % Absolute Granulocytes 12.39 H (1.78-5.38) x10^3/uL Basophils # 0.01 (0.01-0.08) x10^3/uL PT (9.4-12.5) SECONDS INR (0.8-3.0) Sodium (135-145) mmol/L Potassium (3.5-5.1) mmol/L Chloride (98-107) mmol/L Carbon Dioxide (22-30) mmol/L Anion Gap (5-15) MEQ/L BUN (9-20) mg/dL Creatinine (0.66-1.25) mg/dL Estimated GFR ML/MIN Glucose (74-106) mg/dL POC Glucometer 240 H (74 to 106) mg/dL Lactic Acid 2.0 (0.4-2.0) Calcium (8.4-10.2) mg/dL Magnesium (1.6-2.3) mg/dL Total Bilirubin (0.2-1.3) mg/dL AST (17-59) U/L ALT (0-50) U/L Alkaline Phosphatase (38-126) U/L Creatine Kinase (55-170) U/L NT-Pro-B Natriuret Pep (<300) pg/mL Serum Total Protein (6.3-8.2) g/dL Albumin (3.5-5.0) g/dL Prealbumin (17.6-36.0) mg/dL Procalcitonin (0.030-0.080) ng/mL Urine Color (Yellow) Urine Appearance (Clear) Urine pH (4.6-8.0) Ur Specific [place] (1.005-1.030) Urine Protein (Negative) Urine Glucose (UA) (Negative) mg/dL Urine Ketones (Negative) Urine Blood (Negative) Urine Nitrite (Negative) Urine Bilirubin (Negative) Urine Urobilinogen (0.2) mg/dL Ur Leukocyte Esterase (Negative) U Hyaline Cast (Auto) (0-2) /LPF Urine Microscopic RBC (0-5) /HPF Urine Microscopic WBC (0-5) /HPF Ur Epithelial Cells (None Seen) /HPF Urine Bacteria (None Seen) /HPF Ur Yeast w Hyphae (None Seen) /HPF Urine Culture Reflexed (NO) Slides for Path Review YES 09/06/25 09/06/25 09/06/25 Range/Units 21:35 21:35 21:35 WBC (4.23-9.07) x10^3/uL RBC (4.63-6.08) x10^6/uL Hgb (13.7-17.5) g/dL Hct (40.1-51.0) % MCV (79.0-92.2) fL MCH (25.7-32.2) pg MCHC (32.3-36.5) g/dL RDW (11.6-14.4) % Plt Count (163-337) x10^3/uL MPV (9.4-12.4) fL Gran % (34.0-67.9) % Immature Gran % (Auto) (0.001-0.429) % Nucleat RBC Rel Count (0.00-0.2) % Eos # (Auto) (0.04-0.54) x10^3/uL Immature Gran # (Auto) (0.001-0.031) x10^3u/L Absolute Lymphs (auto) (1.32-3.57) x10^3/uL Absolute Monos (auto) (0.30-0.82) x10^3/uL Absolute Nucleated RBC (0.00-0.012) x10^3u/L Lymphocytes % (21.8-53.1) % Monocytes % (5.3-12.2) % Eosinophils % (0.8-7.0) % Basophils % (0.2-1.2) % Absolute Granulocytes (1.78-5.38) x10^3/uL Basophils # (0.01-0.08) x10^3/uL PT 16.1 H (9.4-12.5) SECONDS INR 1.46 (0.8-3.0) Sodium 140 (135-145) mmol/L Potassium 4.7 (3.5-5.1) mmol/L Chloride 102 (98-107) mmol/L Carbon Dioxide 23 (22-30) mmol/L Anion Gap 19.7 H (5-15) MEQ/L BUN 51 H (9-20) mg/dL Creatinine 1.57 H (0.66-1.25) mg/dL Estimated GFR 49.8 ML/MIN Glucose 280 H (74-106) mg/dL POC Glucometer (74 to 106) mg/dL Lactic Acid (0.4-2.0) Calcium 9.3 (8.4-10.2) mg/dL Magnesium 2.1 (1.6-2.3) mg/dL Total Bilirubin 0.80 (0.2-1.3) mg/dL AST 38 (17-59) U/L ALT 22 (0-50) U/L Alkaline Phosphatase 150 H (38-126) U/L Creatine Kinase (55-170) U/L NT-Pro-B Natriuret Pep 2220 (<300) pg/mL Serum Total Protein 7.9 (6.3-8.2) g/dL Albumin 3.3 L (3.5-5.0) g/dL Prealbumin (17.6-36.0) mg/dL Procalcitonin 0.672 H (0.030-0.080) ng/mL Urine Color (Yellow) Urine Appearance (Clear) Urine pH (4.6-8.0) Ur Specific [place] (1.005-1.030) Urine Protein (Negative) Urine Glucose (UA) (Negative) mg/dL Urine Ketones (Negative) Urine Blood (Negative) Urine Nitrite (Negative) Urine Bilirubin (Negative) Urine Urobilinogen (0.2) mg/dL Ur Leukocyte Esterase (Negative) U Hyaline Cast (Auto) (0-2) /LPF Urine Microscopic RBC (0-5) /HPF Urine Microscopic WBC (0-5) /HPF Ur Epithelial Cells (None Seen) /HPF Urine Bacteria (None Seen) /HPF Ur Yeast w Hyphae (None Seen) /HPF Urine Culture Reflexed (NO) Slides for Path Review 09/06/25 09/07/25 09/07/25 Range/Units 22:44 00:00 04:30 WBC 14.2 H (4.23-9.07) x10^3/uL RBC 3.94 L (4.63-6.08) x10^6/uL Hgb 8.3 L (13.7-17.5) g/dL Hct 29.2 L (40.1-51.0) % MCV 74.1 L (79.0-92.2) fL MCH 21.1 L (25.7-32.2) pg MCHC 28.4 L (32.3-36.5) g/dL RDW 23.7 H (11.6-14.4) % Plt Count 324 (163-337) x10^3/uL MPV 9.3 L (9.4-12.4) fL Gran % (34.0-67.9) % Immature Gran % (Auto) (0.001-0.429) % Nucleat RBC Rel Count (0.00-0.2) % Eos # (Auto) (0.04-0.54) x10^3/uL Immature Gran # (Auto) (0.001-0.031) x10^3u/L Absolute Lymphs (auto) (1.32-3.57) x10^3/uL Absolute Monos (auto) (0.30-0.82) x10^3/uL Absolute Nucleated RBC (0.00-0.012) x10^3u/L Lymphocytes % (21.8-53.1) % Monocytes % (5.3-12.2) % Eosinophils % (0.8-7.0) % Basophils % (0.2-1.2) % Absolute Granulocytes (1.78-5.38) x10^3/uL Basophils # (0.01-0.08) x10^3/uL PT (9.4-12.5) SECONDS INR (0.8-3.0) Sodium (135-145) mmol/L Potassium (3.5-5.1) mmol/L Chloride (98-107) mmol/L Carbon Dioxide (22-30) mmol/L Anion Gap (5-15) MEQ/L BUN (9-20) mg/dL Creatinine (0.66-1.25) mg/dL Estimated GFR ML/MIN Glucose (74-106) mg/dL POC Glucometer (74 to 106) mg/dL Lactic Acid (0.4-2.0) Calcium (8.4-10.2) mg/dL Magnesium (1.6-2.3) mg/dL Total Bilirubin (0.2-1.3) mg/dL AST (17-59) U/L ALT (0-50) U/L Alkaline Phosphatase (38-126) U/L Creatine Kinase 444 H (55-170) U/L NT-Pro-B Natriuret Pep (<300) pg/mL Serum Total Protein (6.3-8.2) g/dL Albumin (3.5-5.0) g/dL Prealbumin (17.6-36.0) mg/dL Procalcitonin (0.030-0.080) ng/mL Urine Color Yellow (Yellow) Urine Appearance Turbid A (Clear) Urine pH 5.0 (4.6-8.0) Ur Specific [place] 1.015 (1.005-1.030) Urine Protein 100 A (Negative) Urine Glucose (UA) Negative (Negative) mg/dL Urine Ketones Trace A (Negative) Urine Blood Large A (Negative) Urine Nitrite Negative (Negative) Urine Bilirubin Negative (Negative) Urine Urobilinogen 1.0 A (0.2) mg/dL Ur Leukocyte Esterase Large A (Negative) U Hyaline Cast (Auto) 0-2 (0-2) /LPF Urine Microscopic RBC 51-100 A (0-5) /HPF Urine Microscopic WBC >100 A (0-5) /HPF Ur Epithelial Cells None Seen (None Seen) /HPF Urine Bacteria Many A (None Seen) /HPF Ur Yeast w Hyphae Many A (None Seen) /HPF Urine Culture Reflexed ORDERED SEPARATELY (NO) Slides for Path Review 09/07/25 09/07/25 Range/Units 04:30 04:30 WBC (4.23-9.07) x10^3/uL RBC (4.63-6.08) x10^6/uL Hgb (13.7-17.5) g/dL Hct (40.1-51.0) % MCV (79.0-92.2) fL MCH (25.7-32.2) pg MCHC (32.3-36.5) g/dL RDW (11.6-14.4) % Plt Count (163-337) x10^3/uL MPV (9.4-12.4) fL Gran % (34.0-67.9) % Immature Gran % (Auto) (0.001-0.429) % Nucleat RBC Rel Count (0.00-0.2) % Eos # (Auto) (0.04-0.54) x10^3/uL Immature Gran # (Auto) (0.001-0.031) x10^3u/L Absolute Lymphs (auto) (1.32-3.57) x10^3/uL Absolute Monos (auto) (0.30-0.82) x10^3/uL Absolute Nucleated RBC (0.00-0.012) x10^3u/L Lymphocytes % (21.8-53.1) % Monocytes % (5.3-12.2) % Eosinophils % (0.8-7.0) % Basophils % (0.2-1.2) % Absolute Granulocytes (1.78-5.38) x10^3/uL Basophils # (0.01-0.08) x10^3/uL PT (9.4-12.5) SECONDS INR (0.8-3.0) Sodium 141 (135-145) mmol/L Potassium 4.3 (3.5-5.1) mmol/L Chloride 106 (98-107) mmol/L Carbon Dioxide 23 (22-30) mmol/L Anion Gap 16.0 H (5-15) MEQ/L BUN 50 H (9-20) mg/dL Creatinine 1.58 H (0.66-1.25) mg/dL Estimated GFR 49.5 ML/MIN Glucose 265 H (74-106) mg/dL POC Glucometer (74 to 106) mg/dL Lactic Acid (0.4-2.0) Calcium 8.7 (8.4-10.2) mg/dL Magnesium (1.6-2.3) mg/dL Total Bilirubin (0.2-1.3) mg/dL AST (17-59) U/L ALT (0-50) U/L Alkaline Phosphatase (38-126) U/L Creatine Kinase (55-170) U/L NT-Pro-B Natriuret Pep 1930 (<300) pg/mL Serum Total Protein (6.3-8.2) g/dL Albumin (3.5-5.0) g/dL Prealbumin 3.90 L (17.6-36.0) mg/dL Procalcitonin (0.030-0.080) ng/mL Urine Color (Yellow) Urine Appearance (Clear) Urine pH (4.6-8.0) Ur Specific [place] (1.005-1.030) Urine Protein (Negative) Urine Glucose (UA) (Negative) mg/dL Urine Ketones (Negative) Urine Blood (Negative) Urine Nitrite (Negative) Urine Bilirubin (Negative) Urine Urobilinogen (0.2) mg/dL Ur Leukocyte Esterase (Negative) U Hyaline Cast (Auto) (0-2) /LPF Urine Microscopic RBC (0-5) /HPF Urine Microscopic WBC (0-5) /HPF Ur Epithelial Cells (None Seen) /HPF Urine Bacteria (None Seen) /HPF Ur Yeast w Hyphae (None Seen) /HPF Urine Culture Reflexed (NO) Slides for Path Review - Radiology Impressions Radiology Exams & Impressions: Radiology Procedures Category Date Time Status HEAD WITHOUT CONTRAST [CT] Stat Exams 09/06/25 21:10 Taken LOWER EXTREMITY WO CONTRAST [CT] Stat Exams 09/06/25 21:12 Taken Telemedicine Encounter - Telemedicine Encounter Telemedicine Encounter: "The entirety of this encounter was performed via Telemedicine" This visit was performed using real-time audio and video connection between my location and thepatients locationwith the assistance of a surrogateat the patients location. Written or verbal consent was obtained from the patient/guardian to perform this visit usingSocialGOncSophie & Juliettelemedicine technology. Any patient questions regarding the telemedicine interaction were answered.
[2025-09-07] MEDS ORDERED: VANCOMYCIN 1 GRAM/200 ML BAG 1 GM/200 ML PIGGYBACK IV ONE (05:51)
[2025-09-07] MEDS: VANCOCIN INJECTION*** 1 GM in Sodium Chloride 0.9% 250 ML 250 ML IV SCH (05:55)
[2025-09-07 06:53] LABS: Slide Review YES
[2025-09-07 07:16] LABS: Iron 50 ug/dL (49-181); TIBC 122 ug/dL (261-497)
--- NOTE | 2025-09-07 08:40 | XRAY ---
Indication: Fall. Multiple contiguous axial images obtained through the head without contrast. Comparison: None Age-appropriate global atrophy, mild periventricular degenerative microischemia bilaterally, and remote lacunar infarct left basal ganglia. Anterior left middle fossa demonstrates 3.2 cm round extra-axial mass following CSF attenuation favoring arachnoid cyst. No acute intracranial hemorrhage, abnormal extra-axial fluid collection, or mass effect. 4th ventricle is midline without hydrocephalus. Bony calvarium intact. Visualized paranasal sinuses and mastoid air cells are clear. Impression: Nonacute senile brain with remote lacunar infarct left basal ganglia. Incidental left middle fossa arachnoid cyst.
--- NOTE | 2025-09-07 08:44 | XRAY ---
Indication: Pain following fall. Multiple contiguous axial images obtained through the left hip. Sagittal and coronal reformatted images obtained. Comparison: CT abdomen/pelvis July 31, 2025 Osseous structures remain demineralized. No acute fracture, dislocation, or suspicious bony lesions. Stable incidental 5 mm left femur head bone island. Visualized noncontrasted soft tissues demonstrates new incompletely visualized bilateral ureteral stents with pigtails in urinary bladder. Again mild scattered vascular calcifications. No focal solid/cystic soft tissue mass or abnormal fluid collection on this noncontrast exam. Impression: Chronic findings including osteopenia, arteriosclerotic disease, tiny left femur bone island, and incidental bilateral ureteral stents. No acute findings.
--- NOTE | 2025-09-07 08:57 | PCM.CONS ---
Podiatry HPI - Consult Date of Consultation Date: 09/07/25 Reason for Consult: Chronic leg wounds Consulting Provider: LAZARO CANTRELL NP - HPI History of Present Illness: is a 60 year old male who is well-known to our practice. Patient has not been able to make his follow-up wound care appointment since 08/16/2025 due to concerns of adverse weather. He presented to the emergency department on 09/06/2025 via ambulance. The patient reported that he was found at home by his neighbor laying on the ground. At this time he declines any knowledge of how long he had been on the ground. He also declines any knowledge of the last time he had anything to eat or drink. At this time patient is admitted for UTI and multiple infected ulcers with cellulitis, JOE on CKD stage IIIa, microcytic anemia, type 2 diabetes with peripheral neuropathy, rhabdomyolysis, A-fib, and PTSD. At this time patient attributes significant pain to the sacrum, scrotum, and bilateral lower extremities. He denies chest pain, shortness of breath, fever, chills, cough, nausea, vomiting, abdominal pain, or diarrhea. Labs from 09/07/2025 reviewed reviewed with increasing leukocytosis of 14.2, decreasing hemoglobin at 8.3, improving platelet count of 324, BUN 50, creatinine 1.58, estimated GFR 49.5. Medications & Allergies Home Medications: Home Medication List Insulin Glargine [Lantus Insulin] 66 unit SQ BID 10/18/23 [History Confirmed 08/17/25] Insulin Lispro [Humalog] 14 unit SQ BREAKFAST 11/02/24 [History Confirmed 08/17/25] Insulin Lispro [Humalog] 22 unit SQ LUNCH 11/02/24 [History Confirmed 08/17/25] Insulin Lispro [Humalog] 26 unit SQ DINNER 11/02/24 [History Confirmed 08/17/25] Ropinirole HCl 0.5 mg PO HS 07/11/25 [History Confirmed 08/17/25] Atorvastatin Calcium 20 mg PO DAILY 07/31/25 [History Confirmed 08/17/25] Ergocalciferol (Vitamin D2) [Vitamin D2] 1 cap PO WEEKLY 07/31/25 [History Confirmed 08/17/25] Torsemide 20 mg [Demadex 20 mg] 20 mg PO BID 07/31/25 [History Confirmed 08/17/25] Ferrous Sulfate, Dried [Iron] 159 mg PO DAILY 08/07/25 [History Confirmed 08/17/25] Tamsulosin HCl 0.4 mg PO DAILY 08/07/25 [History Confirmed 08/17/25] Aspirin EC 81 mg [Ecotrin 81 mg] 1 tab PO DAILY 08/17/25 [History Confirmed 08/17/25] Collagenase Oint [Santyl OINTMENT] 1 applic TP UD 08/17/25 [History Confirmed 08/17/25] Famotidine 20 mg [Pepcid 20 MG] 1 tab PO DAILY 08/17/25 [History Confirmed 08/17/25] Furosemide 20 mg [Lasix 20 mg] 1 tab PO BID 08/17/25 [History Confirmed 08/17/25] Gentian Miladis 1 applic TP UD 08/17/25 [History Confirmed 08/17/25] Hydrocodone/Acetaminophen [Hydrocodon-Acetaminophen 5-325] 1 tab PO Q6H PRN 08/17/25 [History Confirmed 08/17/25] Insulin Glargine-Yfgn [Semglee (Yfgn) Pen] 1 dose SQ UD 08/17/25 [History Confirmed 08/17/25] Metoprolol Tartrate 25 mg [Lopressor 25MG Tab] 1 tab PO BID 08/17/25 [History Confirmed 08/17/25] Pentoxifylline 1 tab PO UD 08/17/25 [History Confirmed 08/17/25] Potassium Chloride 20 meq PO DAILY 08/17/25 [History Confirmed 08/17/25] Potassium Chloride [Klor-Con 10] 1 tab PO DAILY 08/17/25 [History Confirmed 08/17/25] Sodium Chloride 0.9 % (Flush) [Normal Saline Flush] 1 applic TP UD 08/17/25 [History Confirmed 08/17/25] Sodium Hypochlorite 0.5% [Dakin's Soln FULL STRENGTH] 1 applic TP UD 08/17/25 [History Confirmed 08/17/25] Valsartan/Hydrochlorothiazide [Valsartan-Hctz 320-25 mg Tab] 0.5 tab PO DAILY 08/17/25 [History Confirmed 08/17/25] metOLazone [Metolazone] 5 mg PO UD 08/17/25 [History Confirmed 08/17/25] Allergies/Adverse Reactions: Allergies Allergy/AdvReac Type Severity Reaction Status Date / Time ciprofloxacin [From Cipro] Allergy Rash Verified 09/06/25 20:35 clindamycin Allergy Rash Verified 09/06/25 20:35 Penicillins Allergy Rash Verified 09/06/25 20:35 Sulfa (Sulfonamide Allergy Rash Verified 09/06/25 20:35 Antibiotics) - Past Medical History Past Medical History: Yes Neurological History: Peripheral Neuropathy ENT History: No Pertinent History Cardiac History: Angina, Arrhythmia, Deep Vein Thrombosis, Hypertension Respiratory History: No Pertinent History Endocrine Medical History: Diabetes Type II Musculoskelatal History: Osteoarthritis GI Medical History: GERD History: No Pertinent History Pyscho-Social History: Depression Male Reproductive Disorders: No Pertinent History Comment: HISTORY OF B LE WOUNDS, PARTIAL SEPTUS INVERTUS, RUPTURED L ROTATOR C UFF. ruptured varicose vein right thigh, anemia - Past Surgical History Past Surgical History: Yes Neuro Surgical History: No Pertinent History Cardiac History: No Pertinent History Respiratory Surgery: No Pertinent History GI Surgical History: No Pertinent History Genitourinary Surgical Hx: No Pertinent History Musculskeletal Surgical Hx: No Pertinent History Male Surgical History: No Pertinent History Other Surgical History: PINWHEEL DRAIN IN BACK TO DRAIN FLUIDS_DONE BY [employer] 2021,right leg back surgery for veins,leg lower ankle area surgery-RT leg Significant Family History: cancer - Social History Smoking Status: Never smoker Exposure to second hand smoke: No Alcohol: None Drug Use: none - Social Determinants of Health Will the patient participate in the screening: Unable to obtain Do you worry about a steady place to live?: No Do you have any problems with any of the following?: No known problems In the past 12 months,have you had to go without utilities?: Yes Have you or anyone in your house had to go without enough: Yes Transportation Issues: Yes Has anyone in your support network made you feel unsafe?: No Does the patient want assistance with any of the above?: No Physical Exam - General General Appearance: mild distress, obese - Vascular Peripheral Pulses: Posterior tibialis: 0, Dorsalis-Pedis: 1+ Capillary Refill Time: < 3 seconds Varicosities: Positive Edema: Pitting Edema Degree: 3+ - Narrative Narrative Physical Exam: Podiatry Physical Exam Bilateral lower extremities with significantly worsening maceration and increasing wound size to the right heel. Localized edema with 3+ pitting bilaterally. Right heel measuring 4 x 4 x 2 cm with positive probe to bone, purulent discharge, and malodor. Lateral left lower extremity wound measuring 5.4 x 4.4 x 0.2 cm with a depth to subcutaneous tissue. Moderate maceration noted to the edges of the wound bed with serous discharge and no malodor Results - Labs Lab/Micro Results: Lab Results-Last 24 Hours 09/06/25 09/06/25 09/06/25 Range/Units 20:45 21:29 21:35 WBC 13.7 H (4.23-9.07) x10^3/uL RBC 4.51 L (4.63-6.08) x10^6/uL Hgb 9.5 L (13.7-17.5) g/dL Hct 33.3 L (40.1-51.0) % MCV 73.8 L (79.0-92.2) fL MCH 21.1 L (25.7-32.2) pg MCHC 28.5 L (32.3-36.5) g/dL RDW 23.8 H (11.6-14.4) % Plt Count 430 H (163-337) x10^3/uL MPV 9.5 (9.4-12.4) fL Gran % 90.6 H (34.0-67.9) % Immature Gran % (Auto) 0.7 H (0.001-0.429) % Nucleat RBC Rel Count 0.0 (0.00-0.2) % Eos # (Auto) 0 L (0.04-0.54) x10^3/uL Immature Gran # (Auto) 0.09 H (0.001-0.031) x10^3u/L Absolute Lymphs (auto) 0.54 L (1.32-3.57) x10^3/uL Absolute Monos (auto) 0.63 (0.30-0.82) x10^3/uL Absolute Nucleated RBC 0.00 (0.00-0.012) x10^3u/L Lymphocytes % 4.0 L (21.8-53.1) % Monocytes % 4.6 L (5.3-12.2) % Eosinophils % 0.0 L (0.8-7.0) % Basophils % 0.1 L (0.2-1.2) % Absolute Granulocytes 12.39 H (1.78-5.38) x10^3/uL Basophils # 0.01 (0.01-0.08) x10^3/uL PT (9.4-12.5) SECONDS INR (0.8-3.0) Sodium (135-145) mmol/L Potassium (3.5-5.1) mmol/L Chloride (98-107) mmol/L Carbon Dioxide (22-30) mmol/L Anion Gap (5-15) MEQ/L BUN (9-20) mg/dL Creatinine (0.66-1.25) mg/dL Estimated GFR ML/MIN Glucose (74-106) mg/dL POC Glucometer 240 H (74 to 106) mg/dL Lactic Acid 2.0 (0.4-2.0) Calcium (8.4-10.2) mg/dL Magnesium (1.6-2.3) mg/dL Iron (49-181) ug/dL TIBC (261-497) ug/dL Iron Saturation (20-39) % Ferritin (17.9-464) ng/mL Total Bilirubin (0.2-1.3) mg/dL AST (17-59) U/L ALT (0-50) U/L Alkaline Phosphatase (38-126) U/L Creatine Kinase (55-170) U/L NT-Pro-B Natriuret Pep (<300) pg/mL Serum Total Protein (6.3-8.2) g/dL Albumin (3.5-5.0) g/dL Prealbumin (17.6-36.0) mg/dL Procalcitonin (0.030-0.080) ng/mL Urine Color (Yellow) Urine Appearance (Clear) Urine pH (4.6-8.0) Ur Specific [place] (1.005-1.030) Urine Protein (Negative) Urine Glucose (UA) (Negative) mg/dL Urine Ketones (Negative) Urine Blood (Negative) Urine Nitrite (Negative) Urine Bilirubin (Negative) Urine Urobilinogen (0.2) mg/dL Ur Leukocyte Esterase (Negative) U Hyaline Cast (Auto) (0-2) /LPF Urine Microscopic RBC (0-5) /HPF Urine Microscopic WBC (0-5) /HPF Ur Epithelial Cells (None Seen) /HPF Urine Bacteria (None Seen) /HPF Ur Yeast w Hyphae (None Seen) /HPF Urine Culture Reflexed (NO) Slides for Path Review YES 09/06/25 09/06/25 09/06/25 Range/Units 21:35 21:35 21:35 WBC (4.23-9.07) x10^3/uL RBC (4.63-6.08) x10^6/uL Hgb (13.7-17.5) g/dL Hct (40.1-51.0) % MCV (79.0-92.2) fL MCH (25.7-32.2) pg MCHC (32.3-36.5) g/dL RDW (11.6-14.4) % Plt Count (163-337) x10^3/uL MPV (9.4-12.4) fL Gran % (34.0-67.9) % Immature Gran % (Auto) (0.001-0.429) % Nucleat RBC Rel Count (0.00-0.2) % Eos # (Auto) (0.04-0.54) x10^3/uL Immature Gran # (Auto) (0.001-0.031) x10^3u/L Absolute Lymphs (auto) (1.32-3.57) x10^3/uL Absolute Monos (auto) (0.30-0.82) x10^3/uL Absolute Nucleated RBC (0.00-0.012) x10^3u/L Lymphocytes % (21.8-53.1) % Monocytes % (5.3-12.2) % Eosinophils % (0.8-7.0) % Basophils % (0.2-1.2) % Absolute Granulocytes (1.78-5.38) x10^3/uL Basophils # (0.01-0.08) x10^3/uL PT 16.1 H (9.4-12.5) SECONDS INR 1.46 (0.8-3.0) Sodium 140 (135-145) mmol/L Potassium 4.7 (3.5-5.1) mmol/L Chloride 102 (98-107) mmol/L Carbon Dioxide 23 (22-30) mmol/L Anion Gap 19.7 H (5-15) MEQ/L BUN 51 H (9-20) mg/dL Creatinine 1.57 H (0.66-1.25) mg/dL Estimated GFR 49.8 ML/MIN Glucose 280 H (74-106) mg/dL POC Glucometer (74 to 106) mg/dL Lactic Acid (0.4-2.0) Calcium 9.3 (8.4-10.2) mg/dL Magnesium 2.1 (1.6-2.3) mg/dL Iron (49-181) ug/dL TIBC (261-497) ug/dL Iron Saturation (20-39) % Ferritin (17.9-464) ng/mL Total Bilirubin 0.80 (0.2-1.3) mg/dL AST 38 (17-59) U/L ALT 22 (0-50) U/L Alkaline Phosphatase 150 H (38-126) U/L Creatine Kinase (55-170) U/L NT-Pro-B Natriuret Pep 2220 (<300) pg/mL Serum Total Protein 7.9 (6.3-8.2) g/dL Albumin 3.3 L (3.5-5.0) g/dL Prealbumin (17.6-36.0) mg/dL Procalcitonin 0.672 H (0.030-0.080) ng/mL Urine Color (Yellow) Urine Appearance (Clear) Urine pH (4.6-8.0) Ur Specific [place] (1.005-1.030) Urine Protein (Negative) Urine Glucose (UA) (Negative) mg/dL Urine Ketones (Negative) Urine Blood (Negative) Urine Nitrite (Negative) Urine Bilirubin (Negative) Urine Urobilinogen (0.2) mg/dL Ur Leukocyte Esterase (Negative) U Hyaline Cast (Auto) (0-2) /LPF Urine Microscopic RBC (0-5) /HPF Urine Microscopic WBC (0-5) /HPF Ur Epithelial Cells (None Seen) /HPF Urine Bacteria (None Seen) /HPF Ur Yeast w Hyphae (None Seen) /HPF Urine Culture Reflexed (NO) Slides for Path Review 09/06/25 09/07/25 09/07/25 Range/Units 22:44 00:00 04:30 WBC 14.2 H (4.23-9.07) x10^3/uL RBC 3.94 L (4.63-6.08) x10^6/uL Hgb 8.3 L (13.7-17.5) g/dL Hct 29.2 L (40.1-51.0) % MCV 74.1 L (79.0-92.2) fL MCH 21.1 L (25.7-32.2) pg MCHC 28.4 L (32.3-36.5) g/dL RDW 23.7 H (11.6-14.4) % Plt Count 324 (163-337) x10^3/uL MPV 9.3 L (9.4-12.4) fL Gran % (34.0-67.9) % Immature Gran % (Auto) (0.001-0.429) % Nucleat RBC Rel Count (0.00-0.2) % Eos # (Auto) (0.04-0.54) x10^3/uL Immature Gran # (Auto) (0.001-0.031) x10^3u/L Absolute Lymphs (auto) (1.32-3.57) x10^3/uL Absolute Monos (auto) (0.30-0.82) x10^3/uL Absolute Nucleated RBC (0.00-0.012) x10^3u/L Lymphocytes % (21.8-53.1) % Monocytes % (5.3-12.2) % Eosinophils % (0.8-7.0) % Basophils % (0.2-1.2) % Absolute Granulocytes (1.78-5.38) x10^3/uL Basophils # (0.01-0.08) x10^3/uL PT (9.4-12.5) SECONDS INR (0.8-3.0) Sodium (135-145) mmol/L Potassium (3.5-5.1) mmol/L Chloride (98-107) mmol/L Carbon Dioxide (22-30) mmol/L Anion Gap (5-15) MEQ/L BUN (9-20) mg/dL Creatinine (0.66-1.25) mg/dL Estimated GFR ML/MIN Glucose (74-106) mg/dL POC Glucometer (74 to 106) mg/dL Lactic Acid (0.4-2.0) Calcium (8.4-10.2) mg/dL Magnesium (1.6-2.3) mg/dL Iron (49-181) ug/dL TIBC (261-497) ug/dL Iron Saturation (20-39) % Ferritin (17.9-464) ng/mL Total Bilirubin (0.2-1.3) mg/dL AST (17-59) U/L ALT (0-50) U/L Alkaline Phosphatase (38-126) U/L Creatine Kinase 444 H (55-170) U/L NT-Pro-B Natriuret Pep (<300) pg/mL Serum Total Protein (6.3-8.2) g/dL Albumin (3.5-5.0) g/dL Prealbumin (17.6-36.0) mg/dL Procalcitonin (0.030-0.080) ng/mL Urine Color Yellow (Yellow) Urine Appearance Turbid A (Clear) Urine pH 5.0 (4.6-8.0) Ur Specific [place] 1.015 (1.005-1.030) Urine Protein 100 A (Negative) Urine Glucose (UA) Negative (Negative) mg/dL Urine Ketones Trace A (Negative) Urine Blood Large A (Negative) Urine Nitrite Negative (Negative) Urine Bilirubin Negative (Negative) Urine Urobilinogen 1.0 A (0.2) mg/dL Ur Leukocyte Esterase Large A (Negative) U Hyaline Cast (Auto) 0-2 (0-2) /LPF Urine Microscopic RBC 51-100 A (0-5) /HPF Urine Microscopic WBC >100 A (0-5) /HPF Ur Epithelial Cells None Seen (None Seen) /HPF Urine Bacteria Many A (None Seen) /HPF Ur Yeast w Hyphae Many A (None Seen) /HPF Urine Culture Reflexed ORDERED SEPARATELY (NO) Slides for Path Review YES 09/07/25 09/07/25 09/07/25 Range/Units 04:30 04:30 04:30 WBC (4.23-9.07) x10^3/uL RBC (4.63-6.08) x10^6/uL Hgb (13.7-17.5) g/dL Hct (40.1-51.0) % MCV (79.0-92.2) fL MCH (25.7-32.2) pg MCHC (32.3-36.5) g/dL RDW (11.6-14.4) % Plt Count (163-337) x10^3/uL MPV (9.4-12.4) fL Gran % (34.0-67.9) % Immature Gran % (Auto) (0.001-0.429) % Nucleat RBC Rel Count (0.00-0.2) % Eos # (Auto) (0.04-0.54) x10^3/uL Immature Gran # (Auto) (0.001-0.031) x10^3u/L Absolute Lymphs (auto) (1.32-3.57) x10^3/uL Absolute Monos (auto) (0.30-0.82) x10^3/uL Absolute Nucleated RBC (0.00-0.012) x10^3u/L Lymphocytes % (21.8-53.1) % Monocytes % (5.3-12.2) % Eosinophils % (0.8-7.0) % Basophils % (0.2-1.2) % Absolute Granulocytes (1.78-5.38) x10^3/uL Basophils # (0.01-0.08) x10^3/uL PT (9.4-12.5) SECONDS INR (0.8-3.0) Sodium 141 (135-145) mmol/L Potassium 4.3 (3.5-5.1) mmol/L Chloride 106 (98-107) mmol/L Carbon Dioxide 23 (22-30) mmol/L Anion Gap 16.0 H (5-15) MEQ/L BUN 50 H (9-20) mg/dL Creatinine 1.58 H (0.66-1.25) mg/dL Estimated GFR 49.5 ML/MIN Glucose 265 H (74-106) mg/dL POC Glucometer (74 to 106) mg/dL Lactic Acid (0.4-2.0) Calcium 8.7 (8.4-10.2) mg/dL Magnesium (1.6-2.3) mg/dL Iron (49-181) ug/dL TIBC (261-497) ug/dL Iron Saturation (20-39) % Ferritin 689 H (17.9-464) ng/mL Total Bilirubin (0.2-1.3) mg/dL AST (17-59) U/L ALT (0-50) U/L Alkaline Phosphatase (38-126) U/L Creatine Kinase (55-170) U/L NT-Pro-B Natriuret Pep 1930 (<300) pg/mL Serum Total Protein (6.3-8.2) g/dL Albumin (3.5-5.0) g/dL Prealbumin 3.90 L (17.6-36.0) mg/dL Procalcitonin (0.030-0.080) ng/mL Urine Color (Yellow) Urine Appearance (Clear) Urine pH (4.6-8.0) Ur Specific [place] (1.005-1.030) Urine Protein (Negative) Urine Glucose (UA) (Negative) mg/dL Urine Ketones (Negative) Urine Blood (Negative) Urine Nitrite (Negative) Urine Bilirubin (Negative) Urine Urobilinogen (0.2) mg/dL Ur Leukocyte Esterase (Negative) U Hyaline Cast (Auto) (0-2) /LPF Urine Microscopic RBC (0-5) /HPF Urine Microscopic WBC (0-5) /HPF Ur Epithelial Cells (None Seen) /HPF Urine Bacteria (None Seen) /HPF Ur Yeast w Hyphae (None Seen) /HPF Urine Culture Reflexed (NO) Slides for Path Review 09/07/25 09/07/25 Range/Units 04:30 07:25 WBC (4.23-9.07) x10^3/uL RBC (4.63-6.08) x10^6/uL Hgb (13.7-17.5) g/dL Hct (40.1-51.0) % MCV (79.0-92.2) fL MCH (25.7-32.2) pg MCHC (32.3-36.5) g/dL RDW (11.6-14.4) % Plt Count (163-337) x10^3/uL MPV (9.4-12.4) fL Gran % (34.0-67.9) % Immature Gran % (Auto) (0.001-0.429) % Nucleat RBC Rel Count (0.00-0.2) % Eos # (Auto) (0.04-0.54) x10^3/uL Immature Gran # (Auto) (0.001-0.031) x10^3u/L Absolute Lymphs (auto) (1.32-3.57) x10^3/uL Absolute Monos (auto) (0.30-0.82) x10^3/uL Absolute Nucleated RBC (0.00-0.012) x10^3u/L Lymphocytes % (21.8-53.1) % Monocytes % (5.3-12.2) % Eosinophils % (0.8-7.0) % Basophils % (0.2-1.2) % Absolute Granulocytes (1.78-5.38) x10^3/uL Basophils # (0.01-0.08) x10^3/uL PT (9.4-12.5) SECONDS INR (0.8-3.0) Sodium (135-145) mmol/L Potassium (3.5-5.1) mmol/L Chloride (98-107) mmol/L Carbon Dioxide (22-30) mmol/L Anion Gap (5-15) MEQ/L BUN (9-20) mg/dL Creatinine (0.66-1.25) mg/dL Estimated GFR ML/MIN Glucose (74-106) mg/dL POC Glucometer 233 H (74 to 106) mg/dL Lactic Acid (0.4-2.0) Calcium (8.4-10.2) mg/dL Magnesium (1.6-2.3) mg/dL Iron 50 (49-181) ug/dL TIBC 122 L (261-497) ug/dL Iron Saturation 41 H (20-39) % Ferritin (17.9-464) ng/mL Total Bilirubin (0.2-1.3) mg/dL AST (17-59) U/L ALT (0-50) U/L Alkaline Phosphatase (38-126) U/L Creatine Kinase (55-170) U/L NT-Pro-B Natriuret Pep (<300) pg/mL Serum Total Protein (6.3-8.2) g/dL Albumin (3.5-5.0) g/dL Prealbumin (17.6-36.0) mg/dL Procalcitonin (0.030-0.080) ng/mL Urine Color (Yellow) Urine Appearance (Clear) Urine pH (4.6-8.0) Ur Specific [place] (1.005-1.030) Urine Protein (Negative) Urine Glucose (UA) (Negative) mg/dL Urine Ketones (Negative) Urine Blood (Negative) Urine Nitrite (Negative) Urine Bilirubin (Negative) Urine Urobilinogen (0.2) mg/dL Ur Leukocyte Esterase (Negative) U Hyaline Cast (Auto) (0-2) /LPF Urine Microscopic RBC (0-5) /HPF Urine Microscopic WBC (0-5) /HPF Ur Epithelial Cells (None Seen) /HPF Urine Bacteria (None Seen) /HPF Ur Yeast w Hyphae (None Seen) /HPF Urine Culture Reflexed (NO) Slides for Path Review Accuchecks Date 09/07/25 Time 08:03 - Radiology Impressions Radiology Exams & Impressions: Radiology Procedures Category Date Time Status HEAD WITHOUT CONTRAST [CT] Stat Exams 09/06/25 21:10 Completed LOWER EXTREMITY WO CONTRAST [CT] Stat Exams 09/06/25 21:12 Completed MRI LOWER EXT W/O CONTRAST [MRI] Urgent Exams 09/07/25 08:43 Ordered Assessment/Plan (1) Non-pressure chronic ulcer of right heel and midfoot with bone involvement without evidence of necrosis Current Visit: Yes Status: Acute Assessment & Plan: At this time cultures were obtained. Right lower extremity dressed with iodine paint, Adaptic, Aquacel, 4 x 4, and Unna boot with 50% compression to the level of the tibial tuberosity. Recommend continued medical management pending culture results of soft tissue and blood. Code(s): L97.416 - NON-PRS CHR ULC OF R HEEL/MIDFT W BNE INVL W/O EVD OF NECR (2) Non-pressure chronic ulcer left lower leg, limited to breakdown skin Current Visit: Yes Status: Acute Assessment & Plan: At this time cultures were obtained. Left lower extremity dressed with iodine paint, Adaptic, 4 x 4, and Unna boot with 50% compression to the level of the tibial tuberosity. Recommend continued medical management pending culture results of soft tissue and blood Code(s): L97.921 - NON-PRS CHR ULC UNSP PRT OF L LOW LEG LIMITED TO BRKDWN SKIN (3) Chronic ulcer of leg Current Visit: Yes Status: Acute Code(s): L97.909 - NON-PRS CHRONIC ULC UNSP PRT OF UNSP LOW LEG W UNSP SEVERITY (4) Weakness Current Visit: Yes Status: Acute Code(s): R53.1 - WEAKNESS (5) Cellulitis Current Visit: Yes Status: Acute Code(s): L03.90 - CELLULITIS, UNSPECIFIED (6) Generalized weakness Current Visit: Yes Status: Acute Code(s): R53.1 - WEAKNESS (7) Sepsis Current Visit: Yes Status: Acute (8) Type 2 diabetes mellitus Current Visit: Yes Status: Chronic Qualifiers: Diabetes mellitus fpc insulin use: with adjunct faculty for medical terminology use Diabetes mellitus complication status: with hyperglycemia Qualified Code(s): E11.65 - Type 2 diabetes mellitus with hyperglycemia; Z79.4 - FDC (current) use of insulin (9) Diabetic peripheral neuropathy associated with type 2 diabetes mellitus Current Visit: Yes Status: Acute Code(s): E11.42 - TYPE 2 DIABETES MELLITUS WITH DIABETIC POLYNEUROPATHY
[2025-09-07] MEDS: HUMULIN R SQ PRN (09:10)
[2025-09-07] MEDS: MAXIPIME 1 GM** 1 G in Sodium Chloride 0.9% 100 ML IV SCH (09:10)
[2025-09-07] MEDS ORDERED: Maxipime 2 GM** 2 G in Sodium Chloride 0.9% 100 ML IV SCH (10:00)
[2025-09-07] MEDS: NORCO 5/325 MG PO PRN (11:28)
[2025-09-07] MEDS: Lopressor 25MG Tab PO SCH (11:28)
[2025-09-07] MEDS ORDERED: Xylocaine 1% Vial 30 ML PF IJ ONE (11:31)
[2025-09-07] MEDS ORDERED: Marcaine Mpf 0.5% Vial 30 Ml ONE (11:31)
[2025-09-07 11:52] VITALS: O2SAT 91
--- NOTE | 2025-09-07 13:33 | XRAY ---
Indication: Sacral wound. Multiple contiguous axial images obtained through the abdomen and pelvis without contrast. Comparison: July 31, 2025 Lung bases demonstrates mild right lung dependent atelectasis. Heart not enlarged. Noncontrasted stomach and bowel loops appear nonobstructed. No free fluid/air. Again mild diffuse fatty liver, mild distended gallbladder with tiny gallstones/gravel, small left renal cyst, and multiple bilateral renal calculi. New bilateral ureteral stents with proximal/distal pigtails in good position. Urinary bladder is moderately distended again with a few tiny posterior calculi. No hydronephrosis or hydroureter. Remaining liver, pancreas, spleen, adrenal glands, and bladder are unremarkable for noncontrast exam. There remains minimal aortoiliac calcifications without AAA. Osseous structures intact again with osteopenia and mild degenerative changes throughout spine. Midline gluteal crease demonstrates new mild cutaneous/subcutaneous induration presumed known sacral wound. Also new tiny scattered subcutaneous air bubble/emphysema presumed gas-forming infection spanning at least 4.5 x 3.8 x 8.0 cm. No focal walled-off fluid collection or abscess. Impression: 1. New midline sacral decubitus wound. Subcutaneous air/emphysema worrisome for gas-forming infection. No focal walled-off fluid collection/abscess. 2. New bilateral ureteral stents in Situ. No hydronephrosis or evidence for obstructive uropathy. 3. Again distended gallbladder with tiny gallstones/gravel better evaluated with sonogram if not already performed. 4. Chronic findings including fatty liver, bilateral renal calculi, tiny urinary bladder calculi, left renal cyst, arteriosclerotic disease, and chronic bony findings.
[2025-09-07] MEDS ORDERED: PHARMACY DOSING REQUEST MC ONE (14:08)
--- NOTE | 2025-09-07 14:22 | PCM.DS ---
Discharge Summary Date of Admission: 09/07/25 00:38 Date of Discharge: 09/07/25 Admitting Physician: CATRACHO BIANCHI MD Consults: Consults on Case 09/06/25 21:00 ACO SDOH Referral ONCE 09/07/25 00:55 Consult Podiatry ROUTINE 09/07/25 07:32 Consult Surgery ROUTINE Primary Care Provider: MARCELLO CHERRY Allergies Allergies ciprofloxacin [From Cipro] Allergy (Verified 09/06/25 20:35) Rash clindamycin Allergy (Verified 09/06/25 20:35) Rash Penicillins Allergy (Verified 09/06/25 20:35) Rash Sulfa (Sulfonamide Antibiotics) Allergy (Verified 09/06/25 20:35) Rash Hospital Summary - Hospital Course Hospital Course: Mr. Taylor is a 60-year-old male with a history of atrial fibrillation on Xarelto, type 2 diabetes mellitus complicated by peripheral neuropathy, and PTSD was brought to the ED by EMS on 09/07/25 after a neighbor found him down on the bathroom floor at home in squalid conditions, confused and minimally responsive. By ED arrival, his mental status had improved and he was alert and appropriately responsive. He endorsed generalized weakness and chronic lower extremity ulcer discomfort, reporting he had not followed up with vascular/wound care and that dressings had not been changed for a prolonged period. He denied chest pain, dyspnea, fever/chills, cough, abdominal pain, vomiting, or diarrhea. Initial ED imaging with CT head and CT lower extremities were reported as without acute findings per ED interpretation. Initial labs were concerning for systemic infection and physiologic stress with leukocytosis (WBC 13.7), anemia (Hgb 9.5), thrombocytosis (Plt 430), azotemia/renal dysfunction (BUN 51, Cr 1.57 from prior ~1.2), hyperglycemia (glucose 280), mild cholestatic pattern (alk phos 150), elevated CK (444) consistent with mild rhabdomyolysis in the setting of being found down, elevated proBNP (2220), and procalcitonin 0.672. Urinalysis was consistent with UTI, and exam revealed multiple chronic, malodorous, likely infected lower extremity ulcers with surrounding cellulitis. Given history of prior wound cultures growing multidrug-resistant organisms (Proteus, Pseudomonas, Enterococcus), he was started on broad-spectrum IV antibiotics with renally-adjusted cefepime and vancomycin (pharmacy-dosed), with blood and urine cultures obtained and wound care initiated. During hospitalization, more extensive skin/soft tissue involvement was identified, including scrotal and sacral wounds. Repeat CT imaging on 09/07/25 demonstrated a new midline sacral decubitus ulcer with subcutaneous air/emphysema concerning for a gas-forming infection, without a focal walled-off abscess. CT also showed bilateral ureteral stents in place without hydronephrosis or obstructive uropathy, a distended gallbladder with tiny gallstones/sludge (recommended ultrasound correlation if clinically indicated), and chronic findings including fatty liver, bilateral renal calculi, tiny bladder calculi, a left renal cyst, and arteriosclerotic disease. Given the CT evidence of soft tissue gas in the setting of a new sacral decubitus wound and systemic inflammatory response (WBC up to 14.2 on 09/07, Hgb 8.3, Cr 1.58 near baseline 1.51.6), there is concern for a severe deep soft tissue infection requiring surgical source control and potential multidisciplinary management. Surgery evaluated the patient and recommended transfer for operative management where higher-level surgical intervention and plastics support are available; podiatry also recommended transfer given the extent of wounds and comorbidities. Anesthesia declined surgical intervention at this facility. The patient was accepted to [facility] and is awaiting bed availability for transfer. At the time of transfer, he remains on broad IV antimicrobial therapy (currently vancomycin + cefepime + metronidazole ) with cultures pending. I spent 50 minutes [id number] with the patient on the day of discharge performing discharge exam, discussing hospital stay and discharge instructions with patient and caregivers, preparation of discharge records, prescriptions & referral forms and addressing any questions/concerns the patient had as documented above. - Vitals & Intake/Output Vital Signs: Vital Signs Temperature 97.1 F 09/07/25 11:49 Pulse Rate 69 09/07/25 11:49 Respiratory Rate 16 09/07/25 11:49 Blood Pressure 99/51 09/07/25 11:49 O2 Sat by Pulse Oximetry 91 L 09/07/25 11:49 Intake & Output: Intake & Output 09/05/25 09/06/25 09/07/25 09/08/25 11:59 11:59 11:59 11:59 Intake Total 718 20 Output Total 0 Balance 718 20 Weight 94.8 kg - Lab Result Diagrams: 09/07/25 04:30 09/07/25 04:30 Lab Results-Last 24 Hrs: Lab Results-Last 24 Hours 09/06/25 09/06/25 09/06/25 Range/Units 20:45 21:29 21:35 WBC 13.7 H (4.23-9.07) x10^3/uL RBC 4.51 L (4.63-6.08) x10^6/uL Hgb 9.5 L (13.7-17.5) g/dL Hct 33.3 L (40.1-51.0) % MCV 73.8 L (79.0-92.2) fL MCH 21.1 L (25.7-32.2) pg MCHC 28.5 L (32.3-36.5) g/dL RDW 23.8 H (11.6-14.4) % Plt Count 430 H (163-337) x10^3/uL MPV 9.5 (9.4-12.4) fL Gran % 90.6 H (34.0-67.9) % Immature Gran % (Auto) 0.7 H (0.001-0.429) % Nucleat RBC Rel Count 0.0 (0.00-0.2) % Eos # (Auto) 0 L (0.04-0.54) x10^3/uL Immature Gran # (Auto) 0.09 H (0.001-0.031) x10^3u/L Absolute Lymphs (auto) 0.54 L (1.32-3.57) x10^3/uL Absolute Monos (auto) 0.63 (0.30-0.82) x10^3/uL Absolute Nucleated RBC 0.00 (0.00-0.012) x10^3u/L Lymphocytes % 4.0 L (21.8-53.1) % Monocytes % 4.6 L (5.3-12.2) % Eosinophils % 0.0 L (0.8-7.0) % Basophils % 0.1 L (0.2-1.2) % Absolute Granulocytes 12.39 H (1.78-5.38) x10^3/uL Basophils # 0.01 (0.01-0.08) x10^3/uL PT (9.4-12.5) SECONDS INR (0.8-3.0) Sodium (135-145) mmol/L Potassium (3.5-5.1) mmol/L Chloride (98-107) mmol/L Carbon Dioxide (22-30) mmol/L Anion Gap (5-15) MEQ/L BUN (9-20) mg/dL Creatinine (0.66-1.25) mg/dL Estimated GFR ML/MIN Glucose (74-106) mg/dL POC Glucometer 240 H (74 to 106) mg/dL Lactic Acid 2.0 (0.4-2.0) Calcium (8.4-10.2) mg/dL Magnesium (1.6-2.3) mg/dL Iron (49-181) ug/dL TIBC (261-497) ug/dL Iron Saturation (20-39) % Ferritin (17.9-464) ng/mL Total Bilirubin (0.2-1.3) mg/dL AST (17-59) U/L ALT (0-50) U/L Alkaline Phosphatase (38-126) U/L Creatine Kinase (55-170) U/L NT-Pro-B Natriuret Pep (<300) pg/mL Serum Total Protein (6.3-8.2) g/dL Albumin (3.5-5.0) g/dL Prealbumin (17.6-36.0) mg/dL Procalcitonin (0.030-0.080) ng/mL Urine Color (Yellow) Urine Appearance (Clear) Urine pH (4.6-8.0) Ur Specific [place] (1.005-1.030) Urine Protein (Negative) Urine Glucose (UA) (Negative) mg/dL Urine Ketones (Negative) Urine Blood (Negative) Urine Nitrite (Negative) Urine Bilirubin (Negative) Urine Urobilinogen (0.2) mg/dL Ur Leukocyte Esterase (Negative) U Hyaline Cast (Auto) (0-2) /LPF Urine Microscopic RBC (0-5) /HPF Urine Microscopic WBC (0-5) /HPF Ur Epithelial Cells (None Seen) /HPF Urine Bacteria (None Seen) /HPF Ur Yeast w Hyphae (None Seen) /HPF Urine Culture Reflexed (NO) Slides for Path Review YES 09/06/25 09/06/25 09/06/25 Range/Units 21:35 21:35 21:35 WBC (4.23-9.07) x10^3/uL RBC (4.63-6.08) x10^6/uL Hgb (13.7-17.5) g/dL Hct (40.1-51.0) % MCV (79.0-92.2) fL MCH (25.7-32.2) pg MCHC (32.3-36.5) g/dL RDW (11.6-14.4) % Plt Count (163-337) x10^3/uL MPV (9.4-12.4) fL Gran % (34.0-67.9) % Immature Gran % (Auto) (0.001-0.429) % Nucleat RBC Rel Count (0.00-0.2) % Eos # (Auto) (0.04-0.54) x10^3/uL Immature Gran # (Auto) (0.001-0.031) x10^3u/L Absolute Lymphs (auto) (1.32-3.57) x10^3/uL Absolute Monos (auto) (0.30-0.82) x10^3/uL Absolute Nucleated RBC (0.00-0.012) x10^3u/L Lymphocytes % (21.8-53.1) % Monocytes % (5.3-12.2) % Eosinophils % (0.8-7.0) % Basophils % (0.2-1.2) % Absolute Granulocytes (1.78-5.38) x10^3/uL Basophils # (0.01-0.08) x10^3/uL PT 16.1 H (9.4-12.5) SECONDS INR 1.46 (0.8-3.0) Sodium 140 (135-145) mmol/L Potassium 4.7 (3.5-5.1) mmol/L Chloride 102 (98-107) mmol/L Carbon Dioxide 23 (22-30) mmol/L Anion Gap 19.7 H (5-15) MEQ/L BUN 51 H (9-20) mg/dL Creatinine 1.57 H (0.66-1.25) mg/dL Estimated GFR 49.8 ML/MIN Glucose 280 H (74-106) mg/dL POC Glucometer (74 to 106) mg/dL Lactic Acid (0.4-2.0) Calcium 9.3 (8.4-10.2) mg/dL Magnesium 2.1 (1.6-2.3) mg/dL Iron (49-181) ug/dL TIBC (261-497) ug/dL Iron Saturation (20-39) % Ferritin (17.9-464) ng/mL Total Bilirubin 0.80 (0.2-1.3) mg/dL AST 38 (17-59) U/L ALT 22 (0-50) U/L Alkaline Phosphatase 150 H (38-126) U/L Creatine Kinase (55-170) U/L NT-Pro-B Natriuret Pep 2220 (<300) pg/mL Serum Total Protein 7.9 (6.3-8.2) g/dL Albumin 3.3 L (3.5-5.0) g/dL Prealbumin (17.6-36.0) mg/dL Procalcitonin 0.672 H (0.030-0.080) ng/mL Urine Color (Yellow) Urine Appearance (Clear) Urine pH (4.6-8.0) Ur Specific [place] (1.005-1.030) Urine Protein (Negative) Urine Glucose (UA) (Negative) mg/dL Urine Ketones (Negative) Urine Blood (Negative) Urine Nitrite (Negative) Urine Bilirubin (Negative) Urine Urobilinogen (0.2) mg/dL Ur Leukocyte Esterase (Negative) U Hyaline Cast (Auto) (0-2) /LPF Urine Microscopic RBC (0-5) /HPF Urine Microscopic WBC (0-5) /HPF Ur Epithelial Cells (None Seen) /HPF Urine Bacteria (None Seen) /HPF Ur Yeast w Hyphae (None Seen) /HPF Urine Culture Reflexed (NO) Slides for Path Review 09/06/25 09/07/25 09/07/25 Range/Units 22:44 00:00 04:30 WBC 14.2 H (4.23-9.07) x10^3/uL RBC 3.94 L (4.63-6.08) x10^6/uL Hgb 8.3 L (13.7-17.5) g/dL Hct 29.2 L (40.1-51.0) % MCV 74.1 L (79.0-92.2) fL MCH 21.1 L (25.7-32.2) pg MCHC 28.4 L (32.3-36.5) g/dL RDW 23.7 H (11.6-14.4) % Plt Count 324 (163-337) x10^3/uL MPV 9.3 L (9.4-12.4) fL Gran % (34.0-67.9) % Immature Gran % (Auto) (0.001-0.429) % Nucleat RBC Rel Count (0.00-0.2) % Eos # (Auto) (0.04-0.54) x10^3/uL Immature Gran # (Auto) (0.001-0.031) x10^3u/L Absolute Lymphs (auto) (1.32-3.57) x10^3/uL Absolute Monos (auto) (0.30-0.82) x10^3/uL Absolute Nucleated RBC (0.00-0.012) x10^3u/L Lymphocytes % (21.8-53.1) % Monocytes % (5.3-12.2) % Eosinophils % (0.8-7.0) % Basophils % (0.2-1.2) % Absolute Granulocytes (1.78-5.38) x10^3/uL Basophils # (0.01-0.08) x10^3/uL PT (9.4-12.5) SECONDS INR (0.8-3.0) Sodium (135-145) mmol/L Potassium (3.5-5.1) mmol/L Chloride (98-107) mmol/L Carbon Dioxide (22-30) mmol/L Anion Gap (5-15) MEQ/L BUN (9-20) mg/dL Creatinine (0.66-1.25) mg/dL Estimated GFR ML/MIN Glucose (74-106) mg/dL POC Glucometer (74 to 106) mg/dL Lactic Acid (0.4-2.0) Calcium (8.4-10.2) mg/dL Magnesium (1.6-2.3) mg/dL Iron (49-181) ug/dL TIBC (261-497) ug/dL Iron Saturation (20-39) % Ferritin (17.9-464) ng/mL Total Bilirubin (0.2-1.3) mg/dL AST (17-59) U/L ALT (0-50) U/L Alkaline Phosphatase (38-126) U/L Creatine Kinase 444 H (55-170) U/L NT-Pro-B Natriuret Pep (<300) pg/mL Serum Total Protein (6.3-8.2) g/dL Albumin (3.5-5.0) g/dL Prealbumin (17.6-36.0) mg/dL Procalcitonin (0.030-0.080) ng/mL Urine Color Yellow (Yellow) Urine Appearance Turbid A (Clear) Urine pH 5.0 (4.6-8.0) Ur Specific [place] 1.015 (1.005-1.030) Urine Protein 100 A (Negative) Urine Glucose (UA) Negative (Negative) mg/dL Urine Ketones Trace A (Negative) Urine Blood Large A (Negative) Urine Nitrite Negative (Negative) Urine Bilirubin Negative (Negative) Urine Urobilinogen 1.0 A (0.2) mg/dL Ur Leukocyte Esterase Large A (Negative) U Hyaline Cast (Auto) 0-2 (0-2) /LPF Urine Microscopic RBC 51-100 A (0-5) /HPF Urine Microscopic WBC >100 A (0-5) /HPF Ur Epithelial Cells None Seen (None Seen) /HPF Urine Bacteria Many A (None Seen) /HPF Ur Yeast w Hyphae Many A (None Seen) /HPF Urine Culture Reflexed ORDERED SEPARATELY (NO) Slides for Path Review YES 09/07/25 09/07/25 09/07/25 Range/Units 04:30 04:30 04:30 WBC (4.23-9.07) x10^3/uL RBC (4.63-6.08) x10^6/uL Hgb (13.7-17.5) g/dL Hct (40.1-51.0) % MCV (79.0-92.2) fL MCH (25.7-32.2) pg MCHC (32.3-36.5) g/dL RDW (11.6-14.4) % Plt Count (163-337) x10^3/uL MPV (9.4-12.4) fL Gran % (34.0-67.9) % Immature Gran % (Auto) (0.001-0.429) % Nucleat RBC Rel Count (0.00-0.2) % Eos # (Auto) (0.04-0.54) x10^3/uL Immature Gran # (Auto) (0.001-0.031) x10^3u/L Absolute Lymphs (auto) (1.32-3.57) x10^3/uL Absolute Monos (auto) (0.30-0.82) x10^3/uL Absolute Nucleated RBC (0.00-0.012) x10^3u/L Lymphocytes % (21.8-53.1) % Monocytes % (5.3-12.2) % Eosinophils % (0.8-7.0) % Basophils % (0.2-1.2) % Absolute Granulocytes (1.78-5.38) x10^3/uL Basophils # (0.01-0.08) x10^3/uL PT (9.4-12.5) SECONDS INR (0.8-3.0) Sodium 141 (135-145) mmol/L Potassium 4.3 (3.5-5.1) mmol/L Chloride 106 (98-107) mmol/L Carbon Dioxide 23 (22-30) mmol/L Anion Gap 16.0 H (5-15) MEQ/L BUN 50 H (9-20) mg/dL Creatinine 1.58 H (0.66-1.25) mg/dL Estimated GFR 49.5 ML/MIN Glucose 265 H (74-106) mg/dL POC Glucometer (74 to 106) mg/dL Lactic Acid (0.4-2.0) Calcium 8.7 (8.4-10.2) mg/dL Magnesium (1.6-2.3) mg/dL Iron (49-181) ug/dL TIBC (261-497) ug/dL Iron Saturation (20-39) % Ferritin 689 H (17.9-464) ng/mL Total Bilirubin (0.2-1.3) mg/dL AST (17-59) U/L ALT (0-50) U/L Alkaline Phosphatase (38-126) U/L Creatine Kinase (55-170) U/L NT-Pro-B Natriuret Pep 1930 (<300) pg/mL Serum Total Protein (6.3-8.2) g/dL Albumin (3.5-5.0) g/dL Prealbumin 3.90 L (17.6-36.0) mg/dL Procalcitonin (0.030-0.080) ng/mL Urine Color (Yellow) Urine Appearance (Clear) Urine pH (4.6-8.0) Ur Specific [place] (1.005-1.030) Urine Protein (Negative) Urine Glucose (UA) (Negative) mg/dL Urine Ketones (Negative) Urine Blood (Negative) Urine Nitrite (Negative) Urine Bilirubin (Negative) Urine Urobilinogen (0.2) mg/dL Ur Leukocyte Esterase (Negative) U Hyaline Cast (Auto) (0-2) /LPF Urine Microscopic RBC (0-5) /HPF Urine Microscopic WBC (0-5) /HPF Ur Epithelial Cells (None Seen) /HPF Urine Bacteria (None Seen) /HPF Ur Yeast w Hyphae (None Seen) /HPF Urine Culture Reflexed (NO) Slides for Path Review 09/07/25 09/07/25 09/07/25 Range/Units 04:30 07:25 11:37 WBC (4.23-9.07) x10^3/uL RBC (4.63-6.08) x10^6/uL Hgb (13.7-17.5) g/dL Hct (40.1-51.0) % MCV (79.0-92.2) fL MCH (25.7-32.2) pg MCHC (32.3-36.5) g/dL RDW (11.6-14.4) % Plt Count (163-337) x10^3/uL MPV (9.4-12.4) fL Gran % (34.0-67.9) % Immature Gran % (Auto) (0.001-0.429) % Nucleat RBC Rel Count (0.00-0.2) % Eos # (Auto) (0.04-0.54) x10^3/uL Immature Gran # (Auto) (0.001-0.031) x10^3u/L Absolute Lymphs (auto) (1.32-3.57) x10^3/uL Absolute Monos (auto) (0.30-0.82) x10^3/uL Absolute Nucleated RBC (0.00-0.012) x10^3u/L Lymphocytes % (21.8-53.1) % Monocytes % (5.3-12.2) % Eosinophils % (0.8-7.0) % Basophils % (0.2-1.2) % Absolute Granulocytes (1.78-5.38) x10^3/uL Basophils # (0.01-0.08) x10^3/uL PT (9.4-12.5) SECONDS INR (0.8-3.0) Sodium (135-145) mmol/L Potassium (3.5-5.1) mmol/L Chloride (98-107) mmol/L Carbon Dioxide (22-30) mmol/L Anion Gap (5-15) MEQ/L BUN (9-20) mg/dL Creatinine (0.66-1.25) mg/dL Estimated GFR ML/MIN Glucose (74-106) mg/dL POC Glucometer 233 H 209 H (74 to 106) mg/dL Lactic Acid (0.4-2.0) Calcium (8.4-10.2) mg/dL Magnesium (1.6-2.3) mg/dL Iron 50 (49-181) ug/dL TIBC 122 L (261-497) ug/dL Iron Saturation 41 H (20-39) % Ferritin (17.9-464) ng/mL Total Bilirubin (0.2-1.3) mg/dL AST (17-59) U/L ALT (0-50) U/L Alkaline Phosphatase (38-126) U/L Creatine Kinase (55-170) U/L NT-Pro-B Natriuret Pep (<300) pg/mL Serum Total Protein (6.3-8.2) g/dL Albumin (3.5-5.0) g/dL Prealbumin (17.6-36.0) mg/dL Procalcitonin (0.030-0.080) ng/mL Urine Color (Yellow) Urine Appearance (Clear) Urine pH (4.6-8.0) Ur Specific [place] (1.005-1.030) Urine Protein (Negative) Urine Glucose (UA) (Negative) mg/dL Urine Ketones (Negative) Urine Blood (Negative) Urine Nitrite (Negative) Urine Bilirubin (Negative) Urine Urobilinogen (0.2) mg/dL Ur Leukocyte Esterase (Negative) U Hyaline Cast (Auto) (0-2) /LPF Urine Microscopic RBC (0-5) /HPF Urine Microscopic WBC (0-5) /HPF Ur Epithelial Cells (None Seen) /HPF Urine Bacteria (None Seen) /HPF Ur Yeast w Hyphae (None Seen) /HPF Urine Culture Reflexed (NO) Slides for Path Review 09/07/25 Range/Units 12:08 WBC (4.23-9.07) x10^3/uL RBC (4.63-6.08) x10^6/uL Hgb (13.7-17.5) g/dL Hct (40.1-51.0) % MCV (79.0-92.2) fL MCH (25.7-32.2) pg MCHC (32.3-36.5) g/dL RDW (11.6-14.4) % Plt Count (163-337) x10^3/uL MPV (9.4-12.4) fL Gran % (34.0-67.9) % Immature Gran % (Auto) (0.001-0.429) % Nucleat RBC Rel Count (0.00-0.2) % Eos # (Auto) (0.04-0.54) x10^3/uL Immature Gran # (Auto) (0.001-0.031) x10^3u/L Absolute Lymphs (auto) (1.32-3.57) x10^3/uL Absolute Monos (auto) (0.30-0.82) x10^3/uL Absolute Nucleated RBC (0.00-0.012) x10^3u/L Lymphocytes % (21.8-53.1) % Monocytes % (5.3-12.2) % Eosinophils % (0.8-7.0) % Basophils % (0.2-1.2) % Absolute Granulocytes (1.78-5.38) x10^3/uL Basophils # (0.01-0.08) x10^3/uL PT (9.4-12.5) SECONDS INR (0.8-3.0) Sodium (135-145) mmol/L Potassium (3.5-5.1) mmol/L Chloride (98-107) mmol/L Carbon Dioxide (22-30) mmol/L Anion Gap (5-15) MEQ/L BUN (9-20) mg/dL Creatinine (0.66-1.25) mg/dL Estimated GFR ML/MIN Glucose (74-106) mg/dL POC Glucometer (74 to 106) mg/dL Lactic Acid 0.9 (0.4-2.0) Calcium (8.4-10.2) mg/dL Magnesium (1.6-2.3) mg/dL Iron (49-181) ug/dL TIBC (261-497) ug/dL Iron Saturation (20-39) % Ferritin (17.9-464) ng/mL Total Bilirubin (0.2-1.3) mg/dL AST (17-59) U/L ALT (0-50) U/L Alkaline Phosphatase (38-126) U/L Creatine Kinase (55-170) U/L NT-Pro-B Natriuret Pep (<300) pg/mL Serum Total Protein (6.3-8.2) g/dL Albumin (3.5-5.0) g/dL Prealbumin (17.6-36.0) mg/dL Procalcitonin (0.030-0.080) ng/mL Urine Color (Yellow) Urine Appearance (Clear) Urine pH (4.6-8.0) Ur Specific [place] (1.005-1.030) Urine Protein (Negative) Urine Glucose (UA) (Negative) mg/dL Urine Ketones (Negative) Urine Blood (Negative) Urine Nitrite (Negative) Urine Bilirubin (Negative) Urine Urobilinogen (0.2) mg/dL Ur Leukocyte Esterase (Negative) U Hyaline Cast (Auto) (0-2) /LPF Urine Microscopic RBC (0-5) /HPF Urine Microscopic WBC (0-5) /HPF Ur Epithelial Cells (None Seen) /HPF Urine Bacteria (None Seen) /HPF Ur Yeast w Hyphae (None Seen) /HPF Urine Culture Reflexed (NO) Slides for Path Review Micro Results-Entire Visit: Accuchecks Date 09/07/25 Date 09/07/25 Time 11:48 Time 08:03 - Radiology Exams Ordered Rad Exams-Entire Visit: Radiology Procedures Category Date Time Status ABDOMEN AND PELVIS W/0 CONTRAS [CT] Routine Exams 09/07/25 10:00 Completed HEAD WITHOUT CONTRAST [CT] Stat Exams 09/06/25 21:10 Completed LOWER EXTREMITY WO CONTRAST [CT] Stat Exams 09/06/25 21:12 Completed - Procedures and Test Procedures and Tests throughout Hospitalization: Therapy Orders & Screens 09/07/25 00:55 PT Eval & Treat ( Order) ONCE Reason for Eval:: Strengthening, range of motion, balance Diagnosis: Weakness Discharge Exam General Appearance: no apparent distress Neurologic Exam: alert, oriented x 3, cooperative Eye Exam: PERRL Ears, Nose, Throat Exam: normal ENT inspection Neck Exam: normal inspection Respiratory Exam: normal breath sounds, lungs clear Cardiovascular Exam: irregular Gastrointestinal/Abdomen Exam: soft, normal bowel sounds Male Genitalia Exam: other (scrotal wound L 4.5cm D 2 cm surrounding necrotic tissue) Rectal Exam: deferred Skin Exam: other (see wound assessment) Wound Assessment: Skin/Wound Assessment Wound/Incision Assessment Start: 09/07/25 01:39 Text: Status: Active Freq: Q6H Protocol: Document 09/07/25 13:30 AR (Rec: 09/07/25 13:31 AR [id number]) Wound/Incision Assessment Sacrum Wound Assessment Shift Assessment Wound Type Pressure Ulcer Wound Stage Stage IV Dressing Status Changed Drainage Amount Large Drainage Description Brown General Appearance Blackened,Necrotic Length (cm) (cm) 4 Width (cm) (cm) 3 Depth (cm) (cm) 3 Wound Bed Greatest Portion Black (Eschar) % Granulated (Red) 25 % Slough (Yellow) 25 % Eschar (Black) 50 Surrounding Tissue Dark Red Topical Solution/Irrigant Saline Irrigant Packing Type Alginate Primary Dressing allevyn foam Comment tunneling at 1200 2cm Scrotum Wound Assessment Shift Assessment Drainage Amount Moderate Drainage Description Green Drainage Odor Foul Odor General Appearance Open to air,Draining Wound Bed Greatest Portion Red (Granulation),Yellow ( Slough) Surrounding Tissue Dark Red,Purple,Weeping Topical Solution/Irrigant Saline Irrigant Left Lower Leg Wound Assessment Shift Assessment Wound Type Stasis Ulcer Wound Stage Non Pressure Wound Dressing Status Changed Drainage Amount Minimal Drainage Odor Foul Odor General Appearance Reddened,Draining Length (cm) (cm) 5 Width (cm) (cm) 4.8 Wound Bed Greatest Portion Red (Granulation) Surrounding Tissue Kincaid,Bright Red,Weeping Comment unna boot placed on left leg. See note for dressing type. Right Heel Wound Assessment Shift Assessment Wound Type Pressure Ulcer Wound Stage Stage IV Drainage Amount Moderate Drainage Description Yellow Drainage Odor Foul Odor General Appearance Open to air,Clean/Dry,Draining ,Bone Visible Length (cm) (cm) 4 Width (cm) (cm) 4 Wound Bed Greatest Portion Yellow (Slough) Topical Solution/Irrigant Saline Irrigant Final Diagnosis/Problem List - Final Discharge Diagnosis/Problem (1) Pressure ulcer of sacral region, unstageable Current Visit: Yes Status: Acute Assessment & Plan: Severe infected wounds/skin and soft tissue infection: sacral decubitus ulcer with subcutaneous emphysema concerning for gas-forming infection, scrotal wound, bilateral lower extremity ulcers with cellulitis; concern for necrotizing/deep infection requiring surgical source control Imaging: CT 09/07/25 with new sacral decubitus wound and subcutaneous air/emphysema, no walled-off abscess; additional chronic findings noted as above. Labs: WBC 13.7 - 14.2 (09/07); procalcitonin 0.672. Prior cultures reportedly MDR Proteus/Pseudomonas/Enterococcus; current wound cultures from coccyx/scrotum/LLE/R heel pending; blood cultures pending; urine culture pending. Continue IV broad-spectrum antibiotics pending cultures and surgical evaluation at receiving facility: vancomycin (pharmacy dosing) + cefepime (renally adjusted) + metronidazole for anaerobic coverage. Ongoing local wound care/offloading; maintain clean/dry dressings; minimize contamination (consider fecal/urinary diversion strategies at receiving facility if needed). Transfer for urgent surgical management (debridement/source control) with plastics availability as recommended by surgery/podiatry. Code(s): L89.150 - PRESSURE ULCER OF SACRAL REGION, UNSTAGEABLE (2) Complicated UTI (urinary tract infection) Current Visit: Yes Status: Acute Assessment & Plan: Imaging: CT shows ureteral stents in situ without hydronephrosis/obstruction. UA consistent with UTI; cultures pending. Covered with current IV regimen (cefepime-based); tailor once urine/blood cultures finalize. Monitor for stent-associated infection considerations; urology involvement at receiving facility as clinically indicated. Code(s): N39.0 - URINARY TRACT INFECTION, SITE NOT SPECIFIED (3) JOE (acute kidney injury) Current Visit: Yes Status: Acute Assessment & Plan: Labs: Cr 1.57 on arrival; Cr 1.58 (09/07) with baseline reported ~1.51.6; BUN 51 initially. IV fluids given (NS 100 mL/hr initially) with close monitoring of volume status given elevated BNP and comorbidities. Renal-dose antibiotics and avoid nephrotoxins; monitor BMP, urine output. Ongoing assessment at receiving facility Code(s): N17.9 - ACUTE KIDNEY FAILURE, UNSPECIFIED (4) Rhabdomyolysis Current Visit: Yes Status: Acute Assessment & Plan: Labs: CK 444. IV hydration as tolerated; trend CK/renal function; monitor electrolytes Code(s): M62.82 - RHABDOMYOLYSIS (5) Microcytic anemia Current Visit: Yes Status: Acute Assessment & Plan: Labs: Hgb 9.5 - 8.3 (09/07) Anemia evaluation planned (iron studies/ferritin, B12/folate as indicated). Monitor for bleeding (especially on anticoagulation) and for anemia of chronic disease vs iron deficiency; transfusion per clinical status/thresholds at receiving facility. Code(s): D50.9 - IRON DEFICIENCY ANEMIA, UNSPECIFIED (6) Abnormal finding on imaging Current Visit: Yes Status: Acute Assessment & Plan: Distended gallbladder with tiny gallstones/sludge CT shows distended gallbladder with tiny stones/gravel; ultrasound recommended if not done and if clinically indicated. No intervention here unless RUQ pain, fever, leukocytosis pattern suggests biliary source; RUQ ultrasound/HIDA at receiving facility if symptoms/labs warrant. Code(s): R93.89 - ABNORMAL FINDINGS ON DX IMAGING OF OTH BODY STRUCTURES (7) Open wound of scrotum Current Visit: Yes Status: Acute Assessment & Plan: Scrotal wound w/ severe pain; contaminated w/ feces on arrival; CT concerning for deep infection/soft tissue gas Surgery recs for transfer-accepted at [facility] Continue Vanc + Cefepime + Flagyl Blood cultures x2, deep wound cultures pending Source control/local care: Strict hygiene/irrigation, barrier cream, non- occlusive absorbent dressings; offload/keep clean/dry Pain control: IV opioids PRN + scheduled acetaminophen if able; avoid NSAIDs if JOE/CKD Tx while awaiting transfer: continue IV vanc + cefepime + metronidazole (broad MRSA/gn/anaerobe coverage) blood + deep wound cultures pending Transfer to [place] for urgent debridement/operative management with higher- level surgery/urology plastics support (local anesthesia declined; surgery/podiatry recommend transfer) Code(s): S31.30XA - UNSPECIFIED OPEN WOUND OF SCROTUM AND TESTES, INIT ENCNTR (8) PTSD (post-traumatic stress disorder) Current Visit: Yes Status: Acute Assessment & Plan: Continue home regimen once reconciled; supportive care and minimize delirium triggers. Code(s): F43.10 - POST-TRAUMATIC STRESS DISORDER, UNSPECIFIED (9) Weakness Current Visit: Yes Status: Acute Assessment & Plan: PT/OT patient may need placement on discharge Code(s): R53.1 - WEAKNESS (10) Chronic wound of extremity Current Visit: No Status: Acute Assessment & Plan: Cultures were obtained. Right lower extremity dressed with iodine paint, Adaptic, Aquacel, 4 x 4, and Unna boot with 50% compression to the level of the tibial tuberosity. Recommend transfer for surgical intervention given chronicity, comorbid DM/neuropathy, and multi-site wounds CT lower extremities: no acute osseous/soft tissue findings; chronic osteopenia and arteriosclerotic disease; incidental tiny left femur bone island; incidental bilateral ureteral stents Disposition: transfer to [facility] for higher-level surgical management (urology/surgery/plastics/podiatry available as needed) Code(s): FBW1349 - (11) Atrial fibrillation Current Visit: No Status: Chronic Assessment & Plan: Patient reports non-compliance with home meds- hold anticoags for now Continue metoprolol Code(s): I48.91 - UNSPECIFIED ATRIAL FIBRILLATION (12) Uncontrolled diabetes mellitus Current Visit: No Status: Chronic Assessment & Plan: Inpatient glucose monitoring and insulin sliding scale (consider basal/bolus strategy at receiving facility for better control given severe infection). Continue neuropathy precautions and foot/wound protection. Code(s): HEW7007 - - Discharge Discharge Date: 09/07/25 Disposition: DC TO OTHER HOSP Condition: Fair Prescriptions: New Insulin Regular, Human [Humulin R] See Rx Instructions .ROUTE .COMPLEX PRN unit PRN Reason: Hyperglycemia Metoprolol Tartrate 25 mg [Lopressor 25MG Tab] 12.5 mg PO BID tablet Cefepime HCl 1 gm [Maxipime 1 gm] 1 g IV Q12HT Acetaminophen 325 mg [Tylenol 325 mg] 650 mg PO Q4H PRN PRN tablet PRN Reason: Pain, Fever, Headache Vancomycin/Water For Inj (Peg) [Vancomycin 1.25 gm/250 ml Bag] 1.25 gm IV Q18H iv piggy Continue Ropinirole HCl 0.5 mg [Requip 0.5 MG] 0.5 mg PO HS Tamsulosin HCl 0.4 mg PO DAILY Ferrous Sulfate 325 mg [Feosol 325 mg] 325 mg PO DAILY Atorvastatin Calcium [Lipitor 20MG Tablet] 20 mg PO DAILY Discontinued Furosemide 40 mg [Lasix 40 MG] 40 mg PO DAILY Torsemide 20 mg [Demadex 20 mg] 20 mg PO DAILY Metoprolol Tartrate 25 mg [Lopressor 25MG Tab] 25 mg PO BID Follow up with: EVA ODELL FNP [Primary Care Provider, UNKNOWN]
[2025-09-07 16:27] VITALS: BP 109/54; PULSE 95; RESP 18; TEMP 94.3
[2025-09-07] MEDS ORDERED: FLAGYL 500 MG IVPB 500 MG/100 ML BAG IV SCH ×2 (17:00→18:00)
[2025-09-08] MEDS ORDERED: VANCOMYCIN 1.25 GM/250 ML BAG 1.25 GM/250 ML PIGGYBACK IV SCH
--- NOTE | 2025-09-10 08:13 | PCM.CONS ---
Podiatry HPI - Consult Date of Consultation Date: 09/07/25 Reason for Consult: Heel ulcer to level of bone Consulting Provider: IMTIAZ LOMBARDO DPM - [facility] History of Present Illness: is a 60 year old male. Medications & Allergies Home Medications: Home Medication List Acetaminophen 325 mg [Tylenol 325 mg] 650 mg PO Q4H PRN PRN tablet 09/07/25 [Rx] Atorvastatin Calcium [Lipitor 20MG Tablet] 20 mg PO DAILY 09/07/25 [History Confirmed 09/07/25] Cefepime HCl 1 gm [Maxipime 1 gm] 1 g IV Q12HT 09/07/25 [Rx] Ferrous Sulfate 325 mg [Feosol 325 mg] 325 mg PO DAILY 09/07/25 [History Confirmed 09/07/25] Insulin Regular, Human [Humulin R] See Rx Instructions .ROUTE .COMPLEX PRN unit 09/07/25 [Rx] Metoprolol Tartrate 25 mg [Lopressor 25MG Tab] 12.5 mg PO BID tablet 09/07/25 [Rx] Ropinirole HCl 0.5 mg [Requip 0.5 MG] 0.5 mg PO HS 09/07/25 [History Confirmed 09/07/25] Tamsulosin HCl 0.4 mg PO DAILY 09/07/25 [History Confirmed 09/07/25] Vancomycin/Water For Inj (Peg) [Vancomycin 1.25 gm/250 ml Bag] 1.25 gm IV Q18H iv piggy 09/07/25 [Rx] Allergies/Adverse Reactions: Allergies Allergy/AdvReac Type Severity Reaction Status Date / Time ciprofloxacin [From Cipro] Allergy Rash Verified 09/06/25 20:35 clindamycin Allergy Rash Verified 09/06/25 20:35 Penicillins Allergy Rash Verified 09/06/25 20:35 Sulfa (Sulfonamide Allergy Rash Verified 09/06/25 20:35 Antibiotics) - Past Medical History Past Medical History: Yes Neurological History: Peripheral Neuropathy ENT History: No Pertinent History Cardiac History: Angina, Arrhythmia, Deep Vein Thrombosis, Hypertension Respiratory History: No Pertinent History Endocrine Medical History: Diabetes Type II Musculoskelatal History: Osteoarthritis GI Medical History: GERD History: No Pertinent History Pyscho-Social History: Depression Male Reproductive Disorders: No Pertinent History Comment: HISTORY OF B LE WOUNDS, PARTIAL SEPTUS INVERTUS, RUPTURED L ROTATOR CUFF. ruptured varicose vein right thigh, anemia - Past Surgical History Past Surgical History: Yes Neuro Surgical History: No Pertinent History Cardiac History: No Pertinent History Respiratory Surgery: No Pertinent History GI Surgical History: No Pertinent History Genitourinary Surgical Hx: No Pertinent History Musculskeletal Surgical Hx: No Pertinent History Male Surgical History: No Pertinent History Other Surgical History: PINWHEEL DRAIN IN BACK TO DRAIN FLUIDS_DONE BY [employer] MEZA 2021,right leg back surgery for veins,leg lower ankle area surgery-RT leg Significant Family History: cancer - Social History Smoking Status: Never smoker Exposure to second hand smoke: No Alcohol: None Drug Use: none - Social Determinants of Health Will the patient participate in the screening: Unable to obtain Do you worry about a steady place to live?: No Do you have any problems with any of the following?: No known problems In the past 12 months,have you had to go without utilities?: Yes Have you or anyone in your house had to go without enough: Yes Transportation Issues: Yes Has anyone in your support network made you feel unsafe?: No Does the patient want assistance with any of the above?: No Physical Exam - Narrative Narrative Physical Exam: Podiatry Physical Exam Results - Labs Lab/Micro Results: Microbiology 09/07/25 08:06 Wound Culture - Preliminary Leg - Left Lower Lateral GRAM NEGATIVE ID AND SENSITIVITY PENDING 09/07/25 08:07 Wound Culture - Preliminary Scrotum - Posterior GRAM NEGATIVE ID AND SENSITIVITY PENDING 09/07/25 08:16 Wound Culture - Preliminary Coccyx GRAM NEGATIVE ID AND SENSITIVITY PENDING 09/07/25 08:06 Wound Culture - Preliminary Heel - Right GRAM NEGATIVE ID AND SENSITIVITY PENDING 09/06/25 22:44 Urine Culture - Preliminary Catherized GRAM NEGATIVE ID AND SENSITIVITY PENDING 09/06/25 21:53 Blood Culture - Preliminary Blood 09/06/25 21:45 Blood Culture - Preliminary Blood Assessment/Plan (1) Chronic ulcer of leg Status: Acute Assessment & Plan: Patient examination and evaluation The patients acuity exceeds the resources and capabilities of our critical access facility. General Surgery has determined that no operative intervention can be safely performed here, and Anesthesia has formally agreed that the patient requires transfer for management beyond our scope. Transfer to a higher-level center is medically necessary to provide the appropriate diagnostic, surgical, and perioperative care. Code(s): L97.909 - NON-PRS CHRONIC ULC UNSP PRT OF UNSP LOW LEG W UNSP SEVERITY (2) Chronic wound Status: Acute Code(s): T14.8XXA - OTHER INJURY OF UNSPECIFIED BODY REGION, INITIAL ENCOUNTER (3) Complicated UTI (urinary tract infection) Status: Acute Code(s): N39.0 - URINARY TRACT INFECTION, SITE NOT SPECIFIED (4) Diabetic peripheral neuropathy associated with type 2 diabetes mellitus Status: Acute Code(s): E11.42 - TYPE 2 DIABETES MELLITUS WITH DIABETIC POLYNEUROPATHY (5) Non-pressure chronic ulcer left lower leg, limited to breakdown skin Status: Acute Code(s): L97.921 - NON-PRS CHR ULC UNSP PRT OF L LOW LEG LIMITED TO BRKDWN SKIN (6) Open wound of scrotum Status: Acute Code(s): S31.30XA - UNSPECIFIED OPEN WOUND OF SCROTUM AND TESTES, INIT ENCNTR (7) Rhabdomyolysis Status: Acute Code(s): M62.82 - RHABDOMYOLYSIS (8) Sacral wound Status: Acute Code(s): S31.000A - UNSP OPN WND LOW BACK AND PELV W/O PENET RETROPERITON, INIT (9) Scrotal edema Status: Acute Code(s): N50.89 - OTHER SPECIFIED DISORDERS OF THE MALE GENITAL ORGANS (10) UTI (urinary tract infection) Status: Acute Code(s): N39.0 - URINARY TRACT INFECTION, SITE NOT SPECIFIED
== END 2025-09-07 17:40 ==
LOC: ED 20:25 → MED SURG 09-07 00:38
PROVIDERS: ADMIT Internal Medicine; ATTEND Internal Medicine
DX: L89.154 Pressure ulcer of sacral region, stage 4 (principal); L97.416 Non-pressure chronic ulcer of right heel and midfoot with bone involvement without evidence of necrosis; Z59.82 Transportation insecurity; Z59.41 Food insecurity; Z59.12 Inadequate housing utilities; L97.921 Non-pressure chronic ulcer of unspecified part of left lower leg limited to breakdown of skin; R53.1 Weakness; L03.116 Cellulitis of left lower limb; A41.9 Sepsis, unspecified organism; E11.65 Type 2 diabetes mellitus with hyperglycemia; E11.42 Type 2 diabetes mellitus with diabetic polyneuropathy; I10 Essential (primary) hypertension; N39.0 Urinary tract infection, site not specified; S31.30XA Unspecified open wound of scrotum and testes, initial encounter; M62.82 Rhabdomyolysis; N50.89 Other specified disorders of the male genital organs; I48.91 Unspecified atrial fibrillation; L89.614 Pressure ulcer of right heel, stage 4; N17.9 Acute kidney failure, unspecified; D50.9 Iron deficiency anemia, unspecified; R93.89 Abnormal findings on diagnostic imaging of other specified body structures; F43.10 Post-traumatic stress disorder, unspecified; Z79.4 Long term (current) use of insulin; Z79.899 Other long term (current) drug therapy; Z79.01 Long term (current) use of anticoagulants
CPT/HCPCS: 29580; 36415; 70450; 73700; 74176; 80048; 80053; 81001; 82550; 82728; 82947; 83540; 83550; 83605; 83735; 83880; 84134; 84145; 84466; 85025; 85027; 85610; 87040; 87070; 87075; 87086; 93041; 96365; 97161; 99285; P9612